=== PATIENT | male | born 1935 | race Caucasian/White ===

== ENCOUNTER 2019-01-12 09:53 | Inpatient (IN) | payer OTHER ==
[2019-01-12] MEDS ORDERED: INSULIN GLARGINE 100 UNITS/ML SQ ONE ×2 (11:00→21:43)
[2019-01-12 11:33] LABS: Protime INR 1.27
[2019-01-12 11:35] LABS: Absolute Lymphocytes (CBC) 0.7 K/uL (0.7-4.9); Basophils % 0.4 % (0-1.3); Hematocrit 41.9 % (39.6-49.0); Lymphocytes % 4.9 % (15.3-44.8); MPV 11.1 fL (7.6-11.3); RBC Red Blood Cell Count 4.66 M/uL (4.33-5.43)
[2019-01-12] MEDS ORDERED: NA CHLORIDE 0.9% 500 ML ONE (11:58)
[2019-01-12 12:04] LABS: Albumin 3.8 g/dL (3.4-5.0); Bilirubin Direct 0.8 mg/dL (0-0.2); Bilirubin Total 3.4 mg/dL (0.2-1.0); Magnesium 1.7 mg/dL (1.8-2.4)
[2019-01-12 12:14] LABS: Troponin (Emerg Dept Use Only) 6.52 ng/mL (0.0-0.045)
--- NOTE | 2019-01-12 12:21 | RAD REPORT ---
EXAM DESCRIPTION: RAD - Chest Single View - 01/12/2019 11:19 am CLINICAL HISTORY: SOB Chest pain. COMPARISON: Chest Single View dated 03/04/2017; Chest Pa And Lat (2 Views) dated 03/02/2017; CHEST PA AND LAT 2 VIEW dated 06/06/2012; CHEST PA AND LAT 2 VIEW dated 05/22/2012 FINDINGS: Portable technique limits examination quality. Emphysematous changes are present with ill-defined bibasilar lung opacities, greater on the right, li milagros representing pneumonia. The heart is mildly enlarged in size. Small bilateral pleural effusions.
[2019-01-12] MEDS ORDERED: HEPARIN 5000 UNIT/ML 1 ML VIAL ONE (12:37)
--- NOTE | 2019-01-12 12:48 | ER ---
Nurse's Notes [facility] Name: Jadon Zamora Age: 83 yrs Sex: Male : 1935 Arrival Date: 01/12/2019 Time: 09:54 Bed 14 Private MD: Humberto Voss V Diagnosis: Non-ST elevation (NSTEMI) myocardial infarction Presentation: 01/12 10:01 Presenting complaint: Patient states: "I have diabetes and its out of control and I've aj1 been fasting for 2 days to try to get it down but it has not come down and then last night I was having a hard time breathing, and now I'm still short winded" Reports that his blood sugar has been in the 420's at home. Denies fever, cough, congestion. Transition of care: patient was not received from another setting of care. Onset of symptoms was 2018. Risk Assessment: Do you want to hurt yourself or someone else? Patient reports no desire to harm self or others. Initial Sepsis Screen: Does the patient meet any 2 criteria? RR > 20 per min. HR > 90 bpm. Yes. Care prior to arrival: None. 10:01 Method Of Arrival: Ambulatory aj1 10:08 Acuity: RISHABH 3 aj1 10:38 Initial Sepsis Screen: Does the patient have a suspected source of infection? No. rb1 Patient's initial sepsis screen is negative. Triage Assessment: 10:05 General: Appears in no apparent distress. comfortable, Behavior is calm, cooperative, aj1 appropriate for age. Pain: Denies pain. Neuro: Level of Consciousness is awake, alert, obeys commands, Oriented to person, place, time, situation. Neuro: Reports generalized weakness. Cardiovascular: Patient's skin is warm and dry. Respiratory: Reports shortness of breath Airway is patent Respiratory effort is even, unlabored, Respiratory pattern is regular, symmetrical. 10:38 Respiratory: Onset: The symptoms/episode began/occurred x 3 days, the patient has rb1 moderate shortness of breath. Historical: - Allergies: 10:05 No Known Allergies; aj1 - Home Meds: 10:35 finasteride Oral [Active]; Glimepiride Oral [Active]; Janumet Oral [Active]; lisinopril rb1 Oral [Active]; - PMHx: 10:05 Arthritis; Diabetes - NIDDM; Hypertension; CAD; cardiac stent x2; aj1 - Immunization history:: Flu vaccine is up to date. - Social history:: Smoking status: Patient/guardian denies using tobacco. - Ebola Screening: : Patient denies travel to an Ebola-affected area in the 21 days before illness onset. Screenin:38 Abuse screen: Denies threats or abuse. Nutritional screening: pt. reports fasting the rb1 last two days. Tuberculosis screening: No symptoms or risk factors identified. 10:38 Fall Risk No fall in past 12 months (0 pts). No secondary diagnosis (0 pts). IV access rb1 (20 points). Ambulatory Aid- None/Bed Rest/Nurse Assist (0 pts). Gait- Normal/Bed Rest/Wheelchair (0 pts) Mental Status- Oriented to own ability (0 pts). Total Miller Fall Scale indicates No Risk (0-24 pts). Assessment: 10:38 General: Appears in no apparent distress. comfortable, Behavior is calm, cooperative, rb1 Denies fever. General: Pt. is concerned about high blood sugars.. Neuro: Level of Consciousness is awake, alert, obeys commands, Oriented to person, place, time, situation. Neuro: Reports weakness in generalized since x 1 week. Cardiovascular: Capillary refill < 3 seconds is brisk in bilateral fingers. Cardiovascular: Denies chest pain. Respiratory: Reports congestion, denies chest pain, but c/o feeling pressure in his chest from the congestion Airway is patent Respiratory effort is even, unlabored, Respiratory pattern is regular, symmetrical. Respiratory: Reports shortness of breath at rest on exertion since x 3 days. Derm: Skin is pink, warm \\T\\ dry. 10:38 Cardiovascular: Rhythm is irregular. rb1 10:52 Reassessment: Faxed Thiago to the pharmacy. rb1 11:38 Reassessment: Patient appears in no apparent distress at this time. No changes from rb1 previously documented assessment. Family at the bedside. 12:23 Reassessment: Patient appears in no apparent distress at this time. Patient and/or rb1 family updated on plan of care and expected duration. Pain level reassessed. Patient is alert, oriented x 3, equal unlabored respirations, skin warm/dry/pink. Patient denies pain at this time. 12:45 Reassessment: Patient appears in no apparent distress at this time. Pt. went to CT. rb1 13:36 Reassessment: Patient appears in no apparent distress at this time. Patient and/or rb1 family updated on plan of care and expected duration. Pain level reassessed. Patient is alert, oriented x 3, equal unlabored respirations, skin warm/dry/pink. Patient denies pain at this time. 13:56 Reassessment: Dr. Lynch is at the pt bedside. rb1 14:00 Reassessment: Called report to FRANK Estrada. Information from the [facility] was given. All rb1 questions asked and answered. 14:18 Reassessment: Patient appears in no apparent distress at this time. Patient and/or rb1 family updated on plan of care and expected duration. Pain level reassessed. Patient is alert, oriented x 3, equal unlabored respirations, skin warm/dry/pink. Patient denies pain at this time. Vital Signs: 10:05 BP 133 / 76; Pulse 97; Resp 22; Temp 97.4; Pulse Ox 100% on R/A; Weight 93.44 kg (R); aj1 Height 6 ft. 0 in. (182.88 cm) (R); Pain 0/10; 11:05 BP 107 / 72; Pulse 78; Resp 22; Pulse Ox 98% on R/A; Pain 0/10; rb1 12:05 BP 104 / 75; Pulse 102; Resp 23; Pulse Ox 99% on R/A; Pain 0/10; rb1 12:30 BP 111 / 74; Pulse 92; Resp 32; Pulse Ox 97% on R/A; Pain 0/10; rb1 13:30 BP 109 / 76; Pulse 98; Resp 39; Pulse Ox 96% on R/A; Pain 0/10; rb1 13:43 BP 111 / 71; Pulse 87; Resp 34; Pulse Ox 97% on R/A; Pain 0/10; rb1 14:00 BP 107 / 75; Pulse 89; Resp 29; Pulse Ox 95% on R/A; Pain 0/10; rb1 14:24 BP 98 / 68; Pulse 81; Resp 37; Pulse Ox 95% on R/A; Pain 0/10; rb1 10:05 Body Mass Index 27.94 (93.44 kg, 182.88 cm) aj1 ED Course: 09:54 Patient arrived in ED. as 09:55 Humberto Voss MD is Private Physician. as 10:05 Arm band placed on. aj1 10:08 Triage completed. aj1 10:32 [facility] pm1 10:32 Vlad Payne MD is Attending Physician. pm1 10:38 Patient has correct armband on for positive identification. Bed in low position. Call rb1 light in reach. Side rails up X 1. campus monitor on. Pulse ox on. NIBP on. Warm blanket given. 10:42 Sagrario Evans, RN is Primary Nurse. rb1 10:56 Missed attempt(s): 22 gauge in right antecubital area. Bleeding controlled, band aid rb1 applied, catheter tip intact. 11:07 Missed attempt(s): 22 gauge in right antecubital area. Bleeding controlled, band aid rb1 applied, catheter tip intact. 11:20 XRAY Chest (1 view) In Process Unspecified. EDMS 11:26 Initial lab(s) drawn, by me, sent to lab. EKG done, by ED staff, reviewed by Avelino em1 Tyesha SHELL. Inserted saline lock: 20 gauge in left wrist, using aseptic technique. Blood collected. 12:45 Humberto Voss MD is Hospitalizing Provider. pm1 12:[address] via stretcher. nj 12:53 CT Chest For PE Angio In Process Unspecified. EDMS 12:53 CT completed. Patient tolerated procedure well. Patient moved back from CT. nj 14:42 No provider procedures requiring assistance completed. Patient admitted, IV remains in rb1 place. Administered Medications: 11:18 Drug: LanTUS 10 units Route: Sub-Q; Site: right upper arm; rb1 11:33 Follow up: Response: No adverse reaction rb1 12:00 Drug: NS 0.9% 500 ml Route: IV; Rate: bolus; Site: left wrist; rb1 12:44 Not Given (Provider changed the order): Heparin (MN Drip) 12 units/kg/hr - (HEParin rb1 81158 units, D5W 500 ml) IV at calculated rate Per protocol; Max initial rate 1000 units/hr 12:45 Not Given (Provider changed the order): Heparin (MN-Bolus No thrombolytic) - HEParin 60 rb1 units/kg IVP once; Max 5000 units 13:24 Drug: Lovenox 1 mg/kg Route: Sub-Q; Site: right lower abdomen; rb1 13:40 Follow up: Response: No adverse reaction rb1 13:24 Drug: Aspirin 325 mg Route: PO; rb1 13:52 Follow up: Response: No adverse reaction rb1 13:30 Drug: Lopressor 5 mg Route: IVP; Site: left wrist; rb1 13:50 Drug: Lopressor 5 mg Route: IVP; Site: left wrist; rb1 14:05 Drug: Lasix 40 mg Route: IVP; Site: left wrist; rb1 14:20 Follow up: Response: No adverse reaction rb1 14:09 Drug: Lopressor 5 mg Route: IVP; Site: left wrist; rb1 14:40 Follow up: Response: No adverse reaction; See vital signs rb1 Point of Care Testing: Blood Glucose: 10:07 Blood Glucose: 346 mg/dL; aj1 12:22 Blood Glucose: 287 mg/dL; rb1 Ranges: Intake: Outcome: 12:47 Decision to Hospitalize by Provider. pm1 14:42 Patient left the ED. 14:42 Admitted to Tele accompanied by tech, family with patient, via stretcher, room 424, rb1 with chart, Report called to FRANK Estrada 14:42 Condition: stable 14:42 Instructed on the need for admit. Signatures: Dispatcher [employer] Kelly Alanis RN RN aj1 Brittany Sanchez Eric em1 Sagrario Evans, RN RN rb1 Avelino Arambula, FLIGHT LINE SERVICE ATTENDANT FLIGHT LINE SERVICE ATTENDANT pm1 Nolvia Mccray RN RN Moise Macdonald Corrections: (The following items were deleted from the chart) 11:09 11:07 Missed attempt(s): 22 gauge in right antecubital area. rb1 rb1
--- NOTE | 2019-01-12 12:49 | EDPHYS ---
Physician Documentation [facility] Name: Jadon Zamora Age: 83 yrs Sex: Male : 1935 Arrival Date: 01/12/2019 Time: 09:54 Bed 14 Private MD: Humberto Voss V ED Physician Vlad Payne HPI: 01/12 12:21 This 83 yrs old Male presents to ER via Ambulatory with complaints of High pm1 Blood Sugar, Shortness Of Breath. 12:21 The patient or guardian reports chest pain that is located primarily in the mid-sternal pm1 area. Onset: 3 day(s) ago. The pain does not radiate. Associated signs and symptoms: Pertinent positives: cough, shortness of breath, Pertinent negatives: abdominal pain, diaphoresis, dizziness, nausea, palpitations, vomiting. The chest pain is described as a pressure. Duration: The patient or guardian reports a single episode, that is now resolved, 15 minutes ago. Modifying factors: The symptoms are alleviated by rest, the symptoms are aggravated by walking, moving from room to room in his house. Severity of pain: in the emergency department the pain has resolved. PCP Dr. Voss. Fabric Worker Brooke. Historical: - Allergies: 10:05 No Known Allergies; aj1 - Home Meds: 10:35 finasteride Oral [Active]; Glimepiride Oral [Active]; Janumet Oral [Active]; lisinopril rb1 Oral [Active]; - PMHx: 10:05 Arthritis; Diabetes - NIDDM; Hypertension; CAD; cardiac stent x2; aj1 - Immunization history:: Flu vaccine is up to date. - Social history:: Smoking status: Patient/guardian denies using tobacco. - Ebola Screening: : Patient denies travel to an Ebola-affected area in the 21 days before illness onset. ROS: 12:21 Constitutional: Negative for fever, chills, and weight loss, Eyes: Negative for injury, pm1 pain, redness, and discharge, ENT: Negative for injury, pain, and discharge, Neck: Negative for injury, pain, and swelling. 12:21 Abdomen/GI: Negative for abdominal pain, nausea, vomiting, diarrhea, and constipation, Back: Negative for injury and pain, : Negative for injury, bleeding, discharge, and swelling, MS/Extremity: Negative for injury and deformity, Skin: Negative for injury, rash, and discoloration, Neuro: Negative for headache, weakness, numbness, tingling, and seizure. 12:21 Cardiovascular: Positive for chest pain, orthopnea, Negative for edema, palpitations. 12:21 Respiratory: Positive for cough, shortness of breath. Exam: 12:21 Constitutional: This is a well developed, well nourished patient who is awake, alert, pm1 and in no acute distress. Head/Face: Normocephalic, atraumatic. Eyes: Pupils equal round and reactive to light, extra-ocular motions intact. Lids and lashes normal. Conjunctiva and sclera are non-icteric and not injected. Cornea within normal limits. Periorbital areas with no swelling, redness, or edema. ENT: Nares patent. No nasal discharge, no septal abnormalities noted. Tympanic membranes are normal and external auditory canals are clear. Oropharynx with no redness, swelling, or masses, exudates, or evidence of obstruction, uvula midline. Mucous membranes moist. Neck: Trachea midline, no thyromegaly or masses palpated, and no cervical lymphadenopathy. Supple, full range of motion without nuchal rigidity, or vertebral point tenderness. No Meningismus. Chest/axilla: Normal chest wall appearance and motion. Nontender with no deformity. No lesions are appreciated. 12:21 Respiratory: Lungs have equal breath sounds bilaterally, clear to auscultation and percussion. No rales, rhonchi or wheezes noted. No increased work of breathing, no retractions or nasal flaring. Abdomen/GI: Soft, non-tender, with normal bowel sounds. No distension or tympany. No guarding or rebound. No evidence of tenderness throughout. Back: No spinal tenderness. No costovertebral tenderness. Full range of motion. Skin: Warm, dry with normal turgor. Normal color with no rashes, no lesions, and no evidence of cellulitis. MS/ Extremity: Pulses equal, no cyanosis. Neurovascular intact. Full, normal range of motion. 12:21 Cardiovascular: Rate: tachycardic, actual rate is 102 bpm, Rhythm: regular, Pulses: no pulse deficits are appreciated, Heart sounds: normal, Edema: is not appreciated. 12:21 Neuro: Orientation: is normal, Motor: is normal, moves all fours. Vital Signs: 10:05 BP 133 / 76; Pulse 97; Resp 22; Temp 97.4; Pulse Ox 100% on R/A; Weight 93.44 kg (R); aj1 Height 6 ft. 0 in. (182.88 cm) (R); Pain 0/10; 11:05 BP 107 / 72; Pulse 78; Resp 22; Pulse Ox 98% on R/A; Pain 0/10; rb1 12:05 BP 104 / 75; Pulse 102; Resp 23; Pulse Ox 99% on R/A; Pain 0/10; rb1 12:30 BP 111 / 74; Pulse 92; Resp 32; Pulse Ox 97% on R/A; Pain 0/10; rb1 13:30 BP 109 / 76; Pulse 98; Resp 39; Pulse Ox 96% on R/A; Pain 0/10; rb1 13:43 BP 111 / 71; Pulse 87; Resp 34; Pulse Ox 97% on R/A; Pain 0/10; rb1 14:00 BP 107 / 75; Pulse 89; Resp 29; Pulse Ox 95% on R/A; Pain 0/10; rb1 14:24 BP 98 / 68; Pulse 81; Resp 37; Pulse Ox 95% on R/A; Pain 0/10; rb1 10:05 Body Mass Index 27.94 (93.44 kg, 182.88 cm) aj1 MDM: 10:33 Patient medically screened. pm1 10:44 Physician consultation: Humberto Voss MD would like further tests performed, Cardiac pm1 work up and Lantus 10 Units, in the emergency department to see patient at 10:43. 12:20 Physician consultation: Vlad Payne MD Discussed elevated troponin and ECG with Dr. ari Payne. Recommended Heparin drip. 12:43 Physician consultation: Humberto Voss MD would like medications started, Lovenox, pm1 instead of Heparin. 12:44 Data reviewed: vital signs. pm1 12:45 Data interpreted: Pulse oximetry: on room air is 99 %. Interpretation: normal. pm1 Counseling: I had a detailed discussion with the patient and/or guardian regarding: the historical points, exam findings, and any diagnostic results supporting the discharge/admit diagnosis, lab results, the need for further work-up and treatment in the hospital. 12:45 Physician consultation: Mikhail Lynch MD was contacted at 12:44, regarding consult, pm1 patient's condition, and will see patient would like medications started, Medications: Give patient a beta-bryn: Metoprolol and Lovenox or Heparin would be appropriate for the patient. 13:32 Physician consultation: Humberto Voss MD Discussed with Dr. Voss if he would like the pm1 patient placed in ICU or telemetry. I wanted to ICU due to troponin value. Dr. Voss would like ICU also if a bed is available, but if no ICU bed is available, admit the patient to telemetry. 13:55 Physician consultation: Mikhail Lynch MD in the emergency department to see patient at pm1 13:56. 01/12 10:19 Order name: Glucose, Ancillary Testing; Complete Time: 10:32 EDMS 01/12 10:42 Order name: Basic Metabolic Panel; Complete Time: 12:15 pm1 01/12 10:42 Order name: CBC with Diff; Complete Time: 13:26 pm1 01/12 10:42 Order name: LFT's; Complete Time: 12:15 pm1 01/12 10:42 Order name: Magnesium; Complete Time: 12:15 pm1 01/12 10:42 Order name: NT PRO-BNP; Complete Time: 12:15 pm1 01/12 10:42 Order name: PT-INR; Complete Time: 11:57 pm1 01/12 10:42 Order name: Troponin (emerg Dept Use Only); Complete Time: 12:15 pm1 01/12 10:42 Order name: XRAY Chest (1 view); Complete Time: 12:29 pm1 01/12 12:24 Order name: Ptt, Activated; Complete Time: 12:35 pm1 01/12 12:33 Order name: Glucose, Ancillary Testing; Complete Time: 12:35 EDMS 01/12 13:15 Order name: Troponin I EDMS 01/12 13:15 Order name: Troponin I EDMS 01/12 13:25 Order name: Manual Differential; Complete Time: 13:26 EDMS 01/12 10:42 Order name: EKG; Complete Time: 10:43 pm1 01/12 12:15 Order name: CT Chest For PE Angio; Complete Time: 13:26 pm1 01/12 13:15 Order name: CONS Physician Consult EDMS 01/12 13:15 Order name: Heart Healthy EDMN 01/12 13:15 Order name: EKG Electrocardiogram EDMN 01/12 13:15 Order name: EKG Electrocardiogram EDMN 01/12 13:15 Order name: EKG Electrocardiogram EDMN 01/12 13:15 Order name: EKG Electrocardiogram [facility] 01/12 10:42 Order name: Cardiac monitoring; Complete Time: 12:04 pm1 01/12 10:42 Order name: EKG - Nurse/Tech; Complete Time: 11:26 pm1 01/12 10:42 Order name: IV Saline Lock; Complete Time: 11:26 pm1 01/12 10:42 Order name: Labs collected and sent; Complete Time: 11:26 pm1 01/12 10:42 Order name: O2 Per Protocol; Complete Time: 12:05 pm1 01/12 10:42 Order name: O2 Sat Monitoring; Complete Time: 12:05 pm1 01/12 13:16 Order name: CONS Pharmacy Consult EDMN Administered Medications: 11:18 Drug: LanTUS 10 units Route: Sub-Q; Site: right upper arm; rb1 11:33 Follow up: Response: No adverse reaction rb1 12:00 Drug: NS 0.9% 500 ml Route: IV; Rate: bolus; Site: left wrist; rb1 12:44 Not Given (Provider changed the order): Heparin (DC Drip) 12 units/kg/hr - (HEParin rb1 06573 units, D5W 500 ml) IV at calculated rate Per protocol; Max initial rate 1000 units/hr 12:45 Not Given (Provider changed the order): Heparin (DC-Bolus No thrombolytic) - HEParin 60 rb1 units/kg IVP once; Max 5000 units 13:24 Drug: Lovenox 1 mg/kg Route: Sub-Q; Site: right lower abdomen; rb1 13:40 Follow up: Response: No adverse reaction rb1 13:24 Drug: Aspirin 325 mg Route: PO; rb1 13:52 Follow up: Response: No adverse reaction rb1 13:30 Drug: Lopressor 5 mg Route: IVP; Site: left wrist; rb1 13:50 Drug: Lopressor 5 mg Route: IVP; Site: left wrist; rb1 14:05 Drug: Lasix 40 mg Route: IVP; Site: left wrist; rb1 14:20 Follow up: Response: No adverse reaction rb1 14:09 Drug: Lopressor 5 mg Route: IVP; Site: left wrist; rb1 14:40 Follow up: Response: No adverse reaction; See vital signs rb1 Point of Care Testing: Blood Glucose: 10:07 Blood Glucose: 346 mg/dL; aj1 12:22 Blood Glucose: 287 mg/dL; rb1 Ranges: Critical Glucose Levels:Adult <50 mg/dl or >400 mg/dl <40 mg/dl or >180 mg/dl Disposition: 17:48 Co-signature as Attending Physician, Vlad Payne MD Did not see or evaluate the ps1 patient. Signing the chart for administrative purposes. Not an endorsement of care provided. . Disposition: 01/12/19 12:47 Hospitalization ordered by Humberto Voss for Inpatient Admission. Preliminary diagnosis is Non-ST elevation (NSTEMI) myocardial infarction. - Bed requested for Telemetry/MedSurg (Inpatient). - Status is Inpatient Admission. hb - Condition is Stable. - Problem is new. - Symptoms have improved. UTI on Admission? No Signatures: Dispatcher [employer] EDMS Kelly Davis RN RN aj1 Sagrario Evans RN RN rb1 Avelino Arambula, SUMAYA STOCKROOM INVENTORY CLERK pm1 Nolvia Mccray RN RN hb Vlad Payne MD MD ps1 Betty Ledezma Corrections: (The following items were deleted from the chart) 12:56 12:47 Hospitalization Ordered by Humberto Voss MD for Inpatient Admission. Preliminary eb diagnosis is Non-ST elevation (NSTEMI) myocardial infarction. Bed requested for Telemetry/MedSurg (Inpatient). Status is Inpatient Admission. Condition is Stable. Problem is new. Symptoms have improved. UTI on Admission? No. pm1 13:04 12:56 01/12/2019 12:47 Hospitalization Ordered by Humberto Voss MD for Inpatient pm1 Admission. Preliminary diagnosis is Non-ST elevation (NSTEMI) myocardial infarction. Bed requested for Telemetry/MedSurg (Inpatient). Status is Inpatient Admission. Condition is Stable. Problem is new. Symptoms have improved. UTI on Admission? No. eb 13:21 13:04 01/12/2019 12:47 Hospitalization Ordered by Humberto Voss MD for Inpatient pm1 Admission. Preliminary diagnosis is Non-ST elevation (NSTEMI) myocardial infarction. Bed requested for Intensive Care Unit. Status is Inpatient Admission. Condition is Stable. Problem is new. Symptoms have improved. UTI on Admission? No. pm1 13:32 13:21 01/12/2019 12:47 Hospitalization Ordered by Humberto Voss MD for Inpatient eb Admission. Preliminary diagnosis is Non-ST elevation (NSTEMI) myocardial infarction. Bed requested for Telemetry/MedSurg (Inpatient). Status is Inpatient Admission. Condition is Stable. Problem is new. Symptoms have improved. UTI on Admission? No. pm1 14:42 13:32 01/12/2019 12:47 Hospitalization Ordered by Humberto Voss MD for Inpatient hb Admission. Preliminary diagnosis is Non-ST elevation (NSTEMI) myocardial infarction. Bed requested for Telemetry/MedSurg (Inpatient). Status is Inpatient Admission. Condition is Stable. Problem is new. Symptoms have improved. UTI on Admission? No. eb
--- NOTE | 2019-01-12 13:04 | RAD REPORT ---
EXAM DESCRIPTION: CT - Chest For Pe Angio - 01/12/2019 12:52 pm CLINICAL HISTORY: Chest pain. SOB COMPARISON: THORAX W CONTRAST dated 05/13/2013; Chest Single View dated 01/12/2019 TECHNIQUE: CT angiogram of the pulmonary arteries was performed with MIP. All CT scans are performed using dose optimization technique as appropriate and may include automated exposure control or mA/KV adjustment according to patient size. FINDINGS: No evidence of pulmonary thromboembolism. No acute aortic finding demonstrated. Moderate bilateral pulmonary opacities are present having the appearance mild pulmonary edema. Atelec tasis is present both lung bases. Respiratory artifact is present, limiting detail. Small to moderate bilateral pleural effusions. No concerning bony finding. IMPRESSION: No evidence of pulmonary thromboembolism. [id number] CHF versus volume overload pattern.
[2019-01-12] MEDS ORDERED: ONDANSETRON 4 MG/2 ML VIAL IV PRN (13:06)
[2019-01-12] MEDS ORDERED: D50W 25 GM/50 ML SYRINGE/VIAL IV PRN (13:06)
[2019-01-12] MEDS ORDERED: MORPHINE 4 MG/ML SYR IV PRN ×2 (13:06→16:55)
[2019-01-12] MEDS ORDERED: GLUCAGON 1 MG/VIAL IM PRN (13:06)
[2019-01-12] MEDS ORDERED: ASPIRIN 81 MG CHEWABLE TABLET ONE (13:22)
[2019-01-12] MEDS ORDERED: METOPROLOL TARTRATE 5 MG/5 ML INJ IV ONE ×3 (13:23→14:09)
[2019-01-12 13:24] LABS: Blood Morphology Comment NOT SEEN (NOT SEEN); Platelet Estimate DECR
[2019-01-12] MEDS ORDERED: FUROSEMIDE 40 MG/4 ML VIAL ONE (14:09)
[2019-01-12 15:19] VITALS: BMI 27.8
[2019-01-12 16:26] LABS: Urine Appearance CLEAR; Urine Bilirubin NEGATIVE (NEG); Urine Blood TRACE (NEG); Urine Color YELLOW; Urine Glucose 2+ (NEG); Urine Protein NEGATIVE (NEG); Urine Urobilinogen 0.2 mg/dL (0.2-1.0); Urine pH 5.5 (5.0-7.0)
[2019-01-12 16:27] LABS: Urine Microscopic Reflex ORDER UMIC
[2019-01-12 16:36] LABS: Urine Bacteria 20-50 /HPF (NONE SEEN); Urine Culture Reflex Order REFLEXED; Urine Mucus 2+ /HPF (NONE SEEN); Urine Yeast FEW (NONE SEEN)
[2019-01-12 16:37] LABS: Urine Coarse Granular Casts FEW /LPF (NONE SEEN)
--- NOTE | 2019-01-12 17:06 | P.HP ---
Certification for Inpatient Patient admitted to: Inpatient With expected LOS: >2 Midnights Practitioner: I am a practitioner with admitting privileges, knowledge of patient current condition, hospital course, and medical plan of care. Services: Services provided to patient in accordance with Admission requirements found in Title 42 Section 412.3 of the Code of Federal Regulations Patient History Date of Service: 01/12/19 Reason for admission: DYSPNEA History of Present Illness: MR. WILD IS A DIABETIC WITH LAST A1C 7.5, HISTORY OF CAD WITH TWO STENTS BY DR. WINN IN 2017, COMES WITH WORSENING DYSPNEA AND PND FOR LAST 4 DAYS. HE IS TRYING TO BRING DOWN HIS GLUCOSE BY EATING LESS AND EATING PROTEIN ONLY. HE SAYS HE IS NOT EATING EXCESS SALT. I SAW HIM IN THE ER BEFORE ANY INVESTIGATIONS. I SUSPECT CHF WITH UNDERLYING CAD FROM HISTORY. Allergies No Known Allergies Allergy (Verified 03/05/17 07:57) Home medications list reviewed: Yes Home Medications: Glimepiride [Amaryl] 4 mg PO DAILY 03/04/17 Sitagliptin Phos/Metformin HCl [Janumet 50-1,000 mg Tablet] 1 each PO BID Ardes Eye Tabls 2 pill PO BID 01/12/19 Aspirin [Adult Aspirin Regimen] 81 mg PO DAILY 01/12/19 Glucosamine/D3/Boswellia Winter [Osteo Bi-Flex Tablet] 1 each PO DAILY 01/12/19 Metoprolol Succinate [Toprol Xl] 25 mg PO DAILY 01/12/19 Multivitamin/Iron/Folic Acid [Centrum Adults Tablet] 1 pill PO DAILY 01/12/19 - Past Medical/Surgical History Has patient received pneumonia vaccine in the past: Yes Diabetic: Yes -: HTN -: Arthritis -: 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 also problem with rt -: Bilateral Knees -: Bilateral Cataracts -: Carpal Tunnel -: cardiac stent x2 2 02/2017 - Family History Mother -: Heart disease, Other (see notes) Notes: CHF - Social History Smoking Status: Former smoker Alcohol use: No CD- Drugs: No Caffeine use: Yes Place of Residence: Home Review of Systems 10-point ROS is otherwise unremarkable General: Weakness, Malaise Respiratory: Shortness of Breath Physical Examination - Vital Signs Temperature: 97.7 F Blood Pressure: 104/68 Pulse: 85 Respirations: 30 Pulse Ox (%): 96 - Physical Exam General: Alert, Mild distress, Obese HEENT: Atraumatic, PERRLA, Mucous membr. moist/pink, EOMI, Sclerae nonicteric Neck: Supple, 2+ carotid pulse no bruit, No LAD, Without JVD or thyroid abnormality Respiratory: Diminished Cardiovascular: Regular rate/rhythm, Normal S1 S2 Gastrointestinal: Normal bowel sounds, No tenderness Musculoskeletal: No tenderness Integumentary: No rashes Neurological: Normal gait, Normal speech, Normal strength at 5/5 x4 extr, Normal tone, Normal affect Lymphatics: No axilla or inguinal lymphadenopathy - Studies Laboratory Data (last 24 hrs) 01/12/19 12:24: APTT 35.8 01/12/19 11:20: PT 14.8 H, INR 1.27 01/12/19 11:20: WBC 14.3 H, Hgb 14.8, Hct 41.9, Plt Count 102 L 01/12/19 11:20: Sodium 133 L, Potassium 4.0, BUN 14, Creatinine 0.90, Glucose 330 H, Magnesium 1.7 L, Total Bilirubin 3.4 H, AST 55 H, ALT 17, Alkaline Phosphatase 71 Assessment and Plan - Problems (Diagnosis) (1) CHF (congestive heart failure) Current Visit: Yes Status: Acute Plan: LASIX 40 MG GIVEN IN ER. I WILL CONINUE 20 MG BID AND KCL . HIS BP IS TOO LOW TO START WITH ACI OR ARB. HE HAS TRIED BEFORE WITH INTOELRANCE. I WILL REDUCE B JIM BP IS DOWN TO 100 SYSTOLIC. Qualifiers: Heart failure type: unspecified Heart failure chronicity: acute Qualified Code(s): I50.9 - Heart failure, unspecified (2) Coronary angioplasty status Onset Date: 03/05/17 Current Visit: No Status: Chronic Plan: ELEVATED TROPONIN CAN BE FROM CHF OR ACUTE NV. HIS PAIN IS MILD AND MORE LIKE PRESSURE. CARDIOLOGY CONSULTED. LOVENOX SC BID. DC HEPARIN. ASPIRIN DAILY 81 MG OXYGEN. (3) Uncontrolled diabetes mellitus Current Visit: Yes Status: Acute Plan: LANTUS STARTED HE KNOWS HOW TO INJECT. TRAIN AGAIN . SLIDING SCALE CHECK A1C LDL. Qualifiers: Diabetes mellitus type: type 2 Glycemic state: with hyperglycemia Qualified Code(s): E11.65 - Type 2 diabetes mellitus with hyperglycemia - Advance Directives Does patient have a Living Will: No Does patient have a Durable POA for Healthcare: No
[2019-01-12] MEDS: FUROSEMIDE 20 MG/ 2ML VIAL IV SCH (17:24)
[2019-01-12] MEDS: METOPROLOL TAR 50 MG TAB PO SCH (17:25)
[2019-01-12] MEDS: INSULIN -REGULAR HUMAN 50 UNIT/0.5 ML ML SQ SCH ×2 (18:11→21:34)
--- NOTE | 2019-01-12 18:21 | CON ---
History Of Present Illness: Mr. Zamora is 83 and for 3 days he has been having chest tightness, heaviness, cough. He has noted his blood sugars have gone up. He is a long-term diabetic. He yara es having chest pain, but he admits having pressure and tightness in his chest. Every time he exerts himself, it would get bad. When he lies flat, he is more short of breath. When he sits up, he is b rip. He has had a CT angio of his chest that is negative for pulmonary embolus. The CAT scan and the chest x-ray both suggest pulmonary edema, although mild, as well as emphysematous changes. He lopez s an EKG that shows nonspecific abnormalities. No infarction injury or ischemia and his troponins ar e very elevated. The first troponin measured since he has been here was 6.52. Mr. Zamora has a history of coronary heart disease with a stent placed in February 2017 in 2 arteries. There were juan diego e other arteries also considered, but not done. The stents were in the circumflex and proximal RCA. Apparently, the RCA was not dilated or stented at that time. The patient is known to have some valv ular heart disease as well. Echocardiogram indicated aortic stenosis. It was moderate with a valve area of 1 sq cm and a mean gradient 26 mm. The patient's outpatient medications, we actually do not have a list of his medications, that is still pending. I know he has been on aspirin, Plavix, and a statin since his stent about 11 months ago. He denies any allergies. He is not allergic to x-ray co ntrast material. Physical Examination: General: Mr. Zamora appears to be mildly dyspneic. Alert, oriented. Vital Signs: His blood pressure is 133/76, pulse 97, temperature 97.4. He is 93 kg, height 6 feet t all. Lungs: Clear. Heart: Reveals a high-grade, high-pitched musical systolic ejection type murmur consistent with aort ic stenosis. It is most easily audible at the cardiac apex. Abdomen: Soft. Extremities: Reveal mild edema. Distal pulses are normal. Impression: The patient has had pulmonary edema associated with myocardial necrosis. No doubt coron narcisa heart disease is the main culprit. I am very concerned that his aortic valve may be a significan t part of the equation. I think he should do a cardiac cath and if the valve is anywhere close to as bad as what the echo said 11 months ago or worse, he should probably just go through a bypass surger y rather than stent, although a stent and a TAVR are possibilities. THOMPSON Voice ID: [id number] Report ID: [id number]
[2019-01-12] MEDS ORDERED: METOPROLOL TAR 50 MG TAB PO SCH (21:00)
[2019-01-12] MEDS: ENOXAPARIN 100 MG/ML SYR SQ SCH (21:00)
[2019-01-12] MEDS: POTASSIUM CL SA 10 MEQ TAB PO SCH (21:34)
--- NOTE | 2019-01-12 23:04 | EKG ---
Test Date: 2019-01-12 Test Time: 11:13:25 Production Lead: DEEPALI MEASUREMENT RESULTS: Intervals: Rate: 100 MA: 184 QRSD: 98 QT: 384 QTc: 495 [place]: P: MA: 184 QRS: 4 T: 76 INTERPRETIVE STATEMENTS: Sinus rhythm with premature supraventricular complexes Anteroseptal infarct, age undetermined Abnormal ECG Compared to ECG 03/06/2017 09:55:16 Atrial premature complex(es) now present Myocardial infarct finding now present Sinus arrhythmia no longer present First degree AV block no longer present T-wave abnormality no longer present Electronically Signed On 01-12-19 23:04:07 FACIAL OPERATOR by Mikhail Lynch
[2019-01-13] MEDS ORDERED: FUROSEMIDE 40 MG/4 ML VIAL IV ONE (02:16)
[2019-01-13] MEDS: ALBUTEROL 2.5 MG/3 ML NEB SOL NEB SCH ×3 (02:18→14:10)
[2019-01-13 04:07] LABS: Absolute Lymphocytes (CBC) 1.1 K/uL (0.7-4.9); Basophils % 0.3 % (0-1.3); Hematocrit 41.3 % (39.6-49.0); Lymphocytes % 9.4 % (15.3-44.8); MPV 10.7 fL (7.6-11.3); RBC Red Blood Cell Count 4.58 M/uL (4.33-5.43)
[2019-01-13 04:25] LABS: BUN Blood Urea Nitrogen 18 mg/dL (7-18); Bicarbonate 26 mmol/L (21-32); Glucose Level 231 mg/dL (74-106); HDL Cholesterol 39 mg/dL (40-60); LDL, Direct 85 mg/dL (100-129); Magnesium 1.7 mg/dL (1.8-2.4); Potassium 3.5 mmol/L (3.5-5.1); Sodium Level 136 mmol/L (136-145)
[2019-01-13] MEDS: METOPROLOL TAR 50 MG TAB PO SCH (06:13)
[2019-01-13] MEDS ORDERED: HEPA 1000U/500MLS 0 UNIT/0 ML BAG IV ONE (07:12)
[2019-01-13] MEDS: ENOXAPARIN 100 MG/ML SYR SQ SCH (07:58)
[2019-01-13] MEDS: FUROSEMIDE 20 MG/ 2ML VIAL IV SCH (07:59)
[2019-01-13] MEDS: INSULIN -REGULAR HUMAN 50 UNIT/0.5 ML ML SQ SCH ×2 (08:30→12:56)
[2019-01-13] MEDS ORDERED: NA CHLORIDE 0.9% 50 ML ONE (08:51)
[2019-01-13] MEDS ORDERED: MIDAZOLAM HCL 2 MG/2 ML INJ ONE (08:51)
[2019-01-13] MEDS ORDERED: FENTANYL CITR 100 MCG/2 ML ONE (08:51)
[2019-01-13] MEDS ORDERED: ATROPINE SULF 1 MG/10 ML SYR IV ONE (08:51)
[2019-01-13] MEDS ORDERED: HEPA 1000U/500MLS 1,000 UNIT/500 ML BAG IV ONE ×2 (08:53)
[2019-01-13] MEDS ORDERED: NA CHLORIDE 0.9% 500 ML ONE (08:53)
[2019-01-13] MEDS: POTASSIUM CL SA 10 MEQ TAB PO SCH (09:00)
[2019-01-13] MEDS ORDERED: ASPIRIN EC 81 MG TAB PO SCH ×2 (09:00)
[2019-01-13] MEDS ORDERED: OCUVITE (VIT A,C & E/LUTEIN/MINERAL) TABLET PO SCH (09:00)
[2019-01-13] MEDS ORDERED: NA CHLORIDE 0.9% 100 ML IV ONE (09:38)
--- NOTE | 2019-01-13 10:03 | EKG ---
Test Date: 2019-01-13 Test Time: 07:15:17 Drug Abuse Technician: JUAN JOSE MEASUREMENT RESULTS: Intervals: Rate: 85 NC: 202 QRSD: 104 QT: 422 QTc: 502 [place]: P: 51 NC: 202 QRS: 22 T: 67 INTERPRETIVE STATEMENTS: Sinus rhythm with premature atrial complexes Cannot rule out Anteroseptal infarct, age undetermined Prolonged QT Abnormal ECG Compared to ECG 01/12/2019 11:13:25 Prolonged QT interval now present Myocardial infarct finding still present Electronically Signed On 01-13-19 10:03:03 JEWELER APPRENTICE by Mikhail Lynch
--- NOTE | 2019-01-13 10:20 | ECHO ---
HEIGHT: 6 ft 0 in WEIGHT: 205 lb 0 oz DATE OF STUDY: 01/13/[address]: Avelino Arambula NP 2-DIMENSIONAL: YES M.MODE: YES DOPPLER: YES COLOR FLOW: YES TDS: NO PORTABLE: NO DEFINITY: NO BUBBLE STUDY: NO DIAGNOSIS: NSTEMI, CONGESTIVE HEART FAILURE CARDIAC HISTORY: CATHERIZATION: YES SURGERY: NO PROSTHETIC VALVE: NO PACEMAKER: NO MEASUREMENTS (cm) DIASTOLIC (NORMALS) SYSTOLIC (NORMALS) IVSd 1.2 (0.6-1.2) LA Diam 3.5 (1.9-4.0) LVEF 51% LVIDd 5.0 (3.5-5.7) LVIDs 3.7 (2.0-3.5) %FS 26% LVPWd 1.3 (0.6-1.2) Ao Diam 2.9 (2.0-3.7) 2 DIMENSIONAL ASSESSMENT: RIGHT ATRIUM: NORMAL LEFT ATRIUM: NORMAL RIGHT VENTRICLE: NORMAL LEFT VENTRICLE: LEFT VENTRICULAR HYPERTORPHY TRICUSPID VALVE: NORMAL MITRAL VALVE: NORMAL PULMONIC VALVE: NORMAL AORTIC VALVE: STENOSIS PERICARDIAL EFFUSION: NONE AORTIC ROOT: NORMAL LEFT VENTRICULAR WALL MOTION: MILD SPETAL HYPOKINESIS. DOPPLER/COLOR FLOW: SEVERE AORTIC STENOSIS, PEAK/MEAN 107/78mmHg, ESTIMATED AORTIC VALVE AREA 0.6 CENTIMETERS SQUARED. MILD AORTIC REGURGITATION. MILD TRICUSPID REGURGITATION, ESTIMATED RIGHT VENTRICULAR SYSTOLIC PRESSURE 50mmHg (MODERATE PULMONARY HYPERTENSION). COMMENTS: NORMAL LEFT VENTRICULAR EJECTION FRACTION WITH WALL MOTION ABNORMALITY. LEFT VENTRICULAR HYPERTROPHY. SEVERE AORTIC STENOSIS. MILD AORTIC AND TRICUSPID REGURGITATION. MODERATE PULMONARY HYPERTENSION. TECHNOLOGIST: SHIRA PEARL
[2019-01-13 12:50] VITALS: TEMP 97.1
[2019-01-13 12:58] VITALS: BP 100/59; O2SAT 99
--- NOTE | 2019-01-13 23:03 | OP ---
Surgeon: Mikhail Lynch MD Identification: Mr. Zamora was 83. Procedure: Right and left heart catheterization. Diagnoses: Coronary artery disease and critical aortic stenosis. Procedure In Detail: The patient was brought to the [facility] in a fasting state sedated with Versed and fentanyl, prepared and draped in usual sterile fashion. Right femoral vein was used and a 7-[place]at[place] sheath and a right heart cath with a [place] catheter. The left femoral artery was ente red with an 18-gauge needle. A 4-Croatian sheath was placed. We used a JL5 and a 3DRC to angiogram th e coronary arteries. We attempted to cross the aortic valve and measure pressures in the left ventri skye. It proved impossible. We used a 3DRC and angled pigtail as a guide placed for the straight wir e and it was impossible to cross. Echocardiogram indicates aortic valve area of 0.6 sq cm and he als o has mild aortic regurgitation on echo. At the end of the procedure, the 4-Croatian sheath was change d for a 6-Croatian. We took an angiogram and then Angio-Seal was used to close the arteriotomy. Manua l pressure was used to close the venotomy after the vein sheath was removed. Complications From The Procedure: None. Our plan is to transfer him to [facility] for AVR and double-vessel bypass. ALYSIA/CARINA Voice ID: [id number] Report ID: [id number]
--- NOTE | 2019-01-14 09:13 | DS ---
Date of Discharge: 01/13/2019 Final Diagnosis: Severe aortic stenosis. Secondary Diagnoses: Strain on the heart, giving rise to elevated troponin; congestive heart failure ; diabetes mellitus. Hospital Course: Patient who is an 83-year-old gentleman, who has severe aortic stenosis per echocar diogram on this admission. He comes in mainly for CHF symptoms and troponin was high. BNP was 17,00 0. His glucose has been high at 346 also. He is now transferred to [facility] for TAVR proc edure for aortic stenosis. He will be discharged after that going home and follow up in my office. He is supposed to take insulin at home now instead of tablets, which have not worked any longer. He has been Lantus. Unfortunately, he will be going from here to [place], so hopefully we wi ll give him insulin prescription or when he comes to office, we will take care of it at that time. We will discuss with the patient's family this morning. TINA/CARINA Voice ID: [id number] Report ID: [id number]
== END 2019-01-13 14:50 | disposition short-term general hospital (02) | DRG 286 ==
LOC: ER 09:53 → ERHOLD 13:23 → 4TH 14:25
PROVIDERS: ADMIT Internal Medicine; ATTEND Internal Medicine
PROC: 4A023N8 Measurement of Cardiac Sampling and Pressure, Bilateral, Percutaneous Approach (ICD-10-PCS; principal; 2019-01-13)
DX: I35.0 Nonrheumatic aortic (valve) stenosis (principal); I50.31 Acute diastolic (congestive) heart failure; E11.65 Type 2 diabetes mellitus with hyperglycemia; I11.0 Hypertensive heart disease with heart failure; I25.10 Atherosclerotic heart disease of native coronary artery without angina pectoris; H40.9 Unspecified glaucoma
CPT/HCPCS: 36415; 71045; 71275; 80048; 80061; 80076; 81003; 81015; 82947; 83036; 83735; 83880; 84484; 85025; 85610; 85730; 87077; 87086; 87088; 87186; 93005; 93306; 93456; 96372; 96374; 96375; 99285; C1760; C1893; J0583; J1644; J1650; J1815; J1940; J2250; J3010; J7040; Q9967

== ENCOUNTER 2019-12-11 18:32 | Inpatient (IN) | payer OTHER ==
[2019-12-11] MEDS ORDERED: NA CHLORIDE 0.9% 500 ML ONE (18:59)
[2019-12-11] MEDS ORDERED: MORPHINE 4 MG/ML SYR ONE ×2 (18:59→20:15)
--- OUTSIDE RECORDS SUMMARY | 2019-12-11 19:03 | XMS REPORT | Clinical Summary ---
:1935 Author Organization [facility] Address [address] [place] [address] Care Team Providers Name Role Phone Gage Voss Primary Care Provider Angel Guthrie Unavailable Allergies No Known Allergies Medications Medication Sig Dispensed Refills Start End Date Status Date aspirin 81 MG EC Take 81 mg by 0 Active tablet mouth daily. multivit-mins/iro Take by mouth. 0 Active n/folic/lycop (CENTRUM MEN ORAL) insulin glargine To use 24 units 45 mL 3 Active (LANTUS SOLOSTAR twice a day. 9 U-100 INSULIN) 100 unit/mL (3 mL) InPn insulin aspart To use 6 to 20 45 mL 3 Active U-100 (NOVOLOG units three 9 FLEXPEN U-100 times a day per INSULIN) 100 sliding scale. unit/mL (3 mL) InPn insulin pen Use as directed. 600 each 0 A ctive needles (BD Dispense as 9 ULTRA-FINE SREEKANTH) written, do not 4 mm x 32 G substitute. Brand medically necessary.To use 6 a day. blood sugar Glucometer;Test 400 strip 3 Ac tive diagnostic strips to use 4 9 (GLUCOSE BLOOD) a day# 400 Strp Refills x3;Lancets to use 4 a day #400 Refills x3; DX E11.65. atorvastatin Take 1 tablet 30 tablet 2 01/22/20 Act adrian (LIPITOR) 80 MG (80 mg total) by 9 20 tablet mouth nightly No more refills through my office. clopidogrel Take 1 tablet 30 tablet 2 12/12/201 12/11/20 Acti ve (PLAVIX) 75 mg (75 mg total) by 9 20 tablet mouth daily No more refills through my office. digoxin (LANOXIN) Take 1 tablet 30 tablet 2 01/22/20 Active 0.25 MG tablet (250 mcg total) 9 20 by mouth daily No more refills through my office. metoprolol Take 1 tablet 60 tablet 2 01/22/20 Activ e (LOPRESSOR) 50 MG (50 mg total) by 9 20 tablet mouth 2 (two) times daily No more refills through my office. furosemide Take 1 tablet 30 tablet 2 01/23/20 Activ e (LASIX) 40 MG (40 mg total) by 9 20 tablet mouth daily No more refills through my office. potassium Take 1 tablet 30 tablet 0 01/23/20 Active chloride SA (10 mEq total) 9 20 (K-DUR,KLOR-CON) by mouth daily 10 MEQ tablet No more refills through my office.. dextromethorphan- Use as needed 0 Active guaifenesin per package 9 (ROBITUSSIN instructions for COUGH-CHEST ZACHERY cough. It is DM) 5-100 mg/5 mL over the Liqd counter. glimepiride Take 4 mg by 0 01/17/20 Disco ntinued (AMARYL) 4 MG mouth 2 (two) 19 (S top Taking at tablet times daily. Dischar ge) metoprolol Take 25 mg by 0 01/23/20 Disco ntinued (TOPROL-XL) 50 MG mouth daily. 19 (Stop Taking at 24 hr tablet Dischar ge) cefdinir Take 1 capsule 10 capsule 0 01/28/20 Expi red (OMNICEF) 300 MG (300 mg total) 9 19 capsule by mouth every 12 (twelve) hours for 5 days. Active Problems Problem Noted Date LBBB post TAVR 01/23/2019 Paroxysmal atrial fibrillation 01/23/2019 S/p TAVR implant of Noe S3#29 on 01/20/19 01/21/2019 SEVERIANO to LAD and RCA on 01/17/19 01/21/2019 Acute on chronic combined systolic and diastolic CHF, NYHA class 4 01/16/2019 Aortic stenosis, severe 01/14/2019 Frailty syndrome in geriatric patient 01/14/2019 Acute non-ST elevation myocardial infarction (NSTEMI) 03/05/2017 Type 2 diabetes mellitus with diabetic nephropathy Encounters Date Type Specialty Care Team Description 01/23/2019 Telephone Diabetes Services Ale, Diabetes Monica Oliveros RN 01/20/2019 Surgery Lobo Perry TAVR / STEPHEN ANTONY Mills MD IP PROC ONLY 01/20/2019 Anesthesia Event Jaimee Contreras MD Chung, Jaeycorina 01/17/2019 Surgery Jasmina Cummings, CORONARY JIE OS & MD STENT 01/15/2019 Travel 01/13/2019 - Hospital Encounter Cardiology Houston Miranda MD Aortic stenosis, severe (Primary Dx); 01/22/2019 Acute non-ST el evation myocardial infarction (NSTEMI) (HCC); Acute on chroni c combined systolic and diastolic CHF, NYHA class 4 ([facility]); Frailty syndrom e in geriatric patient; LBBB (left bund le branch block); Paroxysmal atri al fibrillation ([facility]); 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 Never 01/13/2019 How many drinks containing alcohol do you have on a typical Not asked day when you are drinking? How often do you have six or more drinks on one occasion? No t asked Sex Assigned at Date Recorded Not on file Last Filed Vital Signs Vital Sign Reading Time Taken Comments Blood Pressure 122/65 01/22/2019 12:02 PM [employer]EL [employer] Pulse 78 01/22/2019 12:02 PM [employer]EL [employer] Temperature 36.9 C (98.5 F) 01/22/2019 12:02 PM [employer]EL [employer]ER Respiratory Rate 16 01/22/2019 12:02 PM [employer]EL [employer]ER Oxygen Saturation 97% 01/22/2019 12:02 PM [employer]EL [employer]ER Inhaled Oxygen Concentration 28% 01/15/2019 11:36 AM [employer]EL [employer]ER Weight 88.8 kg (195 lb 12.3 oz) 01/21/2019 8:00 AM [employer]EL [employer] Height 182.9 cm (6') 01/13/2019 4:00 PM [employer]EL [employer] Body Mass Index 26.55 01/13/2019 4:00 PM [employer]EL [employer] Plan of Treatment Health Maintenance Due Date Last Done Comments DIABETIC EYE EXAM 1945 DIABETIC FOOT EXAM 1945 URINE MICROALBUMIN 1946 PNEUMOCOCCAL 65+ YRS (1 of 1 - 2001 [id number]) MEDICARE ANNUAL WELLNESS (YEAR 2 or FIRST 05/14/2002 YEAR if no IPPE) HEMOGLOBIN A1C 07/17/2019 01/15/2019, 01/13/2019 INFLUENZA VACCINE (#1) 2019 Implants Implanted Type Area Rug Dry Room Attendant Device Shelf Model / Identifier Expiration Serial / Date Lot Stent Synergy Otw [id number] - [id number] IMPLAN TS Heart [employer]:INTER[employer] 10/21/2020 [id number] / Implanted: Qty: 1 on 01/17/2019 by Jasmina Cummings MD at [facility] / Description:LDA Stent Synergy Otw 3.32c80ar [id number] - [id number] IMPLAN TS Heart [employer] 08/05/2020 [id number] / Implanted: Qty: 1 on 01/17/2019 by Jasmina Cummings MD at [facility] / [id number] Description:RCA Valve Heart Noe 3 29mm [id number] - [id number] Valves N /A: Aorta [employer] 08/05/2020 [id number] / Implanted: Qty: 1 on 01/20/2019 by Lobo Mullen MD at [facility] [id number] / Description:Aortic Valve Stent Procedures Procedure Name Priority Date/Time Associated Comments Diagnosis VASCULAR DIAGRAM -SCAN 01/29/2019 12:40 PM [employer]EL [employer]ER RHYTHM STRIP - SCAN 01/24/2019 8:31 AM [employer]ER REPORT OF PROCEDURE - 01/24/2019 8:31 ENDOSCOPY SCAN AM [employer]ER VASCULAR DIAGRAM -SCAN 01/24/2019 8:31 AM [employer]EL [employer]ER CARDIAC CATH REPORT - 01/24/2019 8:31 SCAN AM [employer]ER CARDIAC CATH REPORT - 01/24/2019 8:31 SCAN AM [employer]EL [employer]ER ECHOCARDIOGRAM REPORT - 01/22/2019 9:20 SCAN PM [employer]ER POCT-GLUCOSE METER Routine 01/22/2019 12:08 Resul ts for this PM [employer] procedure are i n the results section. XR CHEST 1 VIEW STAT 01/22/2019 11:41 Results for this PORTABLE/BEDSIDE AM [employer] procedure a re in the results section. DIGOXIN LEVEL Routine 01/22/2019 8:42 Results fo r this AM [employer] procedure are i n the results section. POCT-GLUCOSE METER Routine 01/22/2019 7:39 Resul ts for this AM [employer] procedure are i n the results section. (CELLAVISION MANUAL Routine 01/22/2019 3:33 Resu lts for this DIFF) AM [employer] procedure are i n the results section. CBC W/PLT COUNT & AUTO Routine 01/22/2019 3:33 R esults for this DIFFERENTIAL AM [employer] procedure are i n the results section. MAGNESIUM Routine 01/22/2019 3:33 Results for this AM [employer] procedure are i n the results section. CBC W/PLT COUNT & AUTO Routine 01/22/2019 3:33 R esults for this DIFFERENTIAL AM [employer] procedure are i n the results section. BASIC METABOLIC PANEL Routine 01/22/2019 3:33 Re sults for this (7) AM [employer] procedure are i n the results section. POCT-GLUCOSE METER Routine 01/21/2019 9:54 Resul ts for this PM [employer] procedure are i n the results section. ECHOCARDIOGRAM REPORT - 01/21/2019 9:23 SCAN PM [employer]ER TRANSFUSION SERVICE 01/21/2019 6:51 REPORT - SCAN PM [employer] POCT-GLUCOSE METER Routine 01/21/2019 5:46 Resul ts for this PM [employer] procedure are i n the results section. POCT-GLUCOSE METER Routine 01/21/2019 3:49 Resul ts for this PM [employer] procedure are i n the results section. 2D ECHO W/ DOPPLER GAIL 01/21/2019 1:47 Resul ts for this (CW/PW/COLOR) PM [employer] procedure are in the results section. POCT-GLUCOSE METER Routine 01/21/2019 11:33 Resul ts for this AM [employer] procedure are i n the results section. RHYTHM STRIP - SCAN 01/21/2019 11:00 AM [employer]ER POCT-GLUCOSE METER Routine 01/21/2019 7:43 Resul ts for this AM [employer] procedure are i n the results section. ECG 12-LEAD Routine 01/21/2019 6:08 Results for this AM [employer] procedure are i n the results section. CBC W/PLT COUNT & AUTO Routine 01/21/2019 4:12 R esults for this DIFFERENTIAL AM [employer] procedure are i n the results section. MAGNESIUM Routine 01/21/2019 4:12 Results for this AM [employer] procedure are i n the results section. CBC W/PLT COUNT & AUTO Routine 01/21/2019 4:12 R esults for this DIFFERENTIAL AM [employer] procedure are i n the results section. BASIC METABOLIC PANEL Routine 01/21/2019 4:12 Re sults for this (7) AM [employer] procedure are i n the results section. POCT-GLUCOSE METER Routine 01/20/2019 9:07 Resul ts for this PM [employer] procedure are i n the results section. POCT-GLUCOSE METER Routine 01/20/2019 4:42 Resul ts for this PM [employer] procedure are i n the results section. ECG 12-LEAD Routine 01/20/2019 2:09 PM [employer] Procedure Note - Interface, External Ris In - 01/20/2019 2:11 PM [employer]ER Ventricular Rate 76 BPM Atrial Rate 76 BPM P-R Interval 238 ms QRS Duration 168 ms Q-T Interval 524 ms QTC Calculation(Bazett) 589 ms P [place] 37 degrees R [place] -16 degrees T [place] 135 degrees Sinus rhythm with 1st degree A-V block with Premature atrial complexes Left bundle branch block Abnormal ECG ECG 12-LEAD Routine 01/20/2019 2:09 PM [employer]ER Resu lts for this procedure are in the results section . ECG 12-LEAD Routine 01/20/2019 1:20 PM [employer]ER Procedure Note - Interface, External Ris In - 01/20/2019 12:24 PM [employer]ER Ventricular Rate 72 BPM Atrial Rate 72 BPM QRS Duration 170 ms Q-T Interval 528 ms QTC Calculation(Bazett) 578 ms P [place] 66 degrees R [place] 49 degrees T [place] 114 degrees Sinus rhythm with sinus arrh ythmia with 1st degree A-V block Left bundle branch block Abnormal ECG When compared with ECG of 20:18, Sinus rhythm has replaced At rial fibrillation Vent. rate has decreased BY 82 BPM Left bundle branch block is now Present Criteria for Septal infarct are no longer Present ECG 12-LEAD Routine 01/20/2019 1:20 PM [employer]ER Resu lts for this procedure are in the results section . ECG 12-LEAD Routine 01/20/2019 1:06 PM [employer]ER Procedure Note - Interface, External Ris In - 01/20/2019 1:08 PM [employer]ER Ventricular Rate 74 BPM Atrial Rate 74 BPM QRS Duration 172 ms Q-T Interval 528 ms QTC Calculation(Bazett) 586 ms P [place] 50 degrees R [place] -10 degrees T [place] 140 degrees Sinus rhythm with 1st degree A-V block Left bundle branch block Abnormal ECG ECG 12-LEAD Routine 01/20/2019 1:06 PM [employer]ER Resu lts for this procedure are in the results section . ECG 12-LEAD Routine 01/20/2019 1:06 PM [employer]ER Procedure Note - Interface, External Ris In - 01/20/2019 1:07 PM [employer]ER Ventricular Rate 75 BPM Atrial Rate 75 BPM QRS Duration 174 ms Q-T Interval 526 ms QTC Calculation(Bazett) 587 ms P [place] 58 degrees R [place] -1 degrees T [place] 148 degrees Sinus rhythm with 1st degree A-V block Left bundle branch block Abnormal ECG POCT-GLUCOSE METER Routine 01/20/2019 12:59 Resul ts for this PM [employer] procedure are i n the results section. PREPARE LEUKO-REDUCED Routine 01/20/2019 11:16 Re sults for this RBC AM [employer] procedure are i n the results section. POCT-ACT Routine 01/20/2019 10:14 Results for this AM [employer] procedure are i n the results section. URINALYSIS W/ REFLEX Routine 01/20/2019 9:19 Res ults for this URINE CULTURE AM [employer] procedure are in the results section. URINE CULTURE Routine 01/20/2019 9:19 Results fo r this AM [employer] procedure are i n the results section. TRANSESOPHAGEAL ECHO Routine 01/20/2019 7:49 Res ults for this AM [employer] procedure are i n the results section. CONT WAVE PULSED Routine 01/20/2019 7:23 DOPPLER AM [employer]ER COLOR-FLOW MAPPING Routine 01/20/2019 7:23 AM [employer]ER TAVR / STEPHEN MCR - IP 01/20/2019 7:06 Nonrheumatic a ortic PROC ONLY AM [employer] valve stenosis Case Notes (1)CASE 1135/ [place] ANESTHESIA (CELLAVISION MANUAL DIFF) Routine 01/20/2019 4:04 AM [employer]ER Results for this procedure are i n the results section . CBC W/PLT COUNT & AUTO Routine 01/20/2019 4:04 AM [employer]ER Results for this DIFFERENTIAL procedure are i n the results section . APTT Routine 01/20/2019 4:04 AM [employer]ER Resu lts for this procedure are i n the results section . MAGNESIUM Routine 01/20/2019 4:04 AM [employer]ER Resu lts for this procedure are i n the results section . CBC W/PLT COUNT & AUTO Routine 01/20/2019 4:04 AM [employer]ER Results for this DIFFERENTIAL procedure are i n the results section . BASIC METABOLIC PANEL (7) Routine 01/20/2019 4:04 AM [employer]ER Results for this procedure are i n the results section . POCT-GLUCOSE METER Routine 01/19/2019 11:09 PM [employer]ER Results for this procedure are i n the results section . APTT Routine 01/19/2019 5:51 PM [employer]ER Resu lts for this procedure are i n the results section . POCT-GLUCOSE METER Routine 01/19/2019 4:48 PM [employer]ER Results for this procedure are i n the results section . POCT-GLUCOSE METER Routine 01/19/2019 11:26 AM [employer]ER Results for this procedure are i n the results section . APTT Routine 01/19/2019 11:24 AM [employer]ER Resu lts for this procedure are i n the results section . POCT-GLUCOSE METER Routine 01/19/2019 8:05 AM [employer]ER Results for this procedure are i n the results section . (CELLAVISION MANUAL DIFF) Routine 01/19/2019 4:02 AM [employer]ER Results for this procedure are i n the results section . CBC W/PLT COUNT & AUTO Routine 01/19/2019 4:02 AM [employer]ER Results for this DIFFERENTIAL procedure are i n the results section . LACTIC ACID, VENOUS Routine 01/19/2019 4:02 AM [employer]ER Results for this procedure are i n the results section . MAGNESIUM Routine 01/19/2019 4:02 AM [employer]ER Resu lts for this procedure are i n the results section . CBC W/PLT COUNT & AUTO Routine 01/19/2019 4:02 AM [employer]ER Results for this DIFFERENTIAL procedure are i n the results section . BASIC METABOLIC PANEL (7) Routine 01/19/2019 4:02 AM [employer]ER Results for this procedure are i n the results section . POCT-GLUCOSE METER Routine 01/18/2019 10:39 PM [employer]ER Results for this procedure are i n the results section . TRANSFUSION SERVICE REPORT 01/18/2019 6:02 PM [employer]EL [employer]ER - SCAN POCT-GLUCOSE METER Routine 01/18/2019 5:40 PM [employer]ER Results for this procedure are i n the results section . POCT-GLUCOSE METER Routine 01/18/2019 12:30 PM [employer]ER Results for this procedure are i n the results section . POCT-GLUCOSE METER Routine 01/18/2019 12:16 PM [employer]ER Results for this procedure are i n the results section . POCT-GLUCOSE METER Routine 01/18/2019 7:49 AM [employer]ER Results for this procedure are i n the results section . CBC W/PLT COUNT & AUTO Routine 01/18/2019 3:43 AM [employer]ER Results for this DIFFERENTIAL procedure are i n the results section . MAGNESIUM Routine 01/18/2019 3:43 AM [employer]ER Resu lts for this procedure are i n the results section . CBC W/PLT COUNT & AUTO Routine 01/18/2019 3:43 AM [employer]ER Results for this DIFFERENTIAL procedure are i n the results section . BASIC METABOLIC PANEL (7) Routine 01/18/2019 3:43 AM [employer]ER Results for this procedure are i n the results section . APTT Routine 01/18/2019 3:43 AM [employer]ER Resu lts for this procedure are i n the results section . ECG 12-LEAD Routine 01/17/2019 8:18 PM [employer]ER Resu lts for this procedure are i n the results section . ECG 12-LEAD Routine 01/17/2019 8:18 PM [employer]ER Procedure Note - Interface, External Ris In - 01/17/2019 7:48 PM [employer]ER Ventricular Rate 154 BPM Atrial Rate 90 BPM QRS Duration 94 ms Q-T Interval 314 ms QTC Calculation(Bazett) 502 ms R [place] 20 degrees T [place] 90 degrees Atrial fibrillation with rap id ventricular response Septal infarct (cited on or before 17-JAN-2019) Abnormal ECG When compared with ECG of 20:17, No significant change was fo und ECG 12-LEAD Routine 01/17/2019 8:17 PM [employer]ER Resu lts for this procedure are in the results section . ECG 12-LEAD Routine 01/17/2019 8:17 PM [employer]ER Procedure Note - Interface, External Ris In - 01/17/2019 7:47 PM [employer]ER Ventricular Rate 149 BPM Atrial Rate 136 BPM QRS Duration 98 ms Q-T Interval 342 ms QTC Calculation(Bazett) 538 ms R [place] 18 degrees T [place] 90 degrees Atrial fibrillation with rap id ventricular response Anteroseptal infarct , age u ndetermined Abnormal ECG When compared with ECG of 20:52, Anteroseptal infarct is now Present Nonspecific T wave abnormali ty no longer evident in Inferior leads POCT-GLUCOSE METER Routine 01/17/2019 4:51 Resul ts for this PM [employer] procedure are i n the results section. POCT-ACT Routine 01/17/2019 1:07 Results for this PM [employer] procedure are i n the results section. 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 CBC W/PLT COUNT & AUTO Routine 01/17/2019 5:07 AM [employer] Results for this DIFFERENTIAL procedure are i n the results section . TYPE AND SCREEN, AUTOMATED Routine 01/17/2019 5:07 AM [employer] Results for this procedure are i n the results section . PROTHROMBIN TIME/INR Routine 01/17/2019 5:07 AM [employer]ER Results for this procedure are i n the results section . MAGNESIUM Routine 01/17/2019 5:07 AM [employer]ER Resu lts for this procedure are i n the results section . CBC W/PLT COUNT & AUTO Routine 01/17/2019 5:07 AM [employer]ER Results for this DIFFERENTIAL procedure are i n the results section . BASIC METABOLIC PANEL (7) Routine 01/17/2019 5:07 AM [employer]ER Results for this procedure are i n the results section . APTT Routine 01/17/2019 5:07 AM [employer]ER Resu lts for this procedure are i n the results section . POCT-GLUCOSE METER Routine 01/16/2019 9:57 PM [employer]ER Results for this procedure are i n the results section . POCT-GLUCOSE METER Routine 01/16/2019 5:22 PM [employer]ER Results for this procedure are i n the results section . POCT-GLUCOSE METER Routine 01/16/2019 11:55 AM [employer]ER Results for this procedure are i n the results section . POCT-GLUCOSE METER Routine 01/16/2019 7:38 AM [employer]ER Results for this procedure are i n the results section . CBC W/PLT COUNT & AUTO Routine 01/16/2019 4:15 AM [employer]ER Results for this DIFFERENTIAL procedure are i n the results section . APTT Routine 01/16/2019 4:15 AM [employer]EL [employer]ER Resu lts for this procedure are i n the results section . MAGNESIUM Routine 01/16/2019 4:15 AM [employer]ER Resu lts for this procedure are i n the results section . CBC W/PLT COUNT & AUTO Routine 01/16/2019 4:15 AM [employer]ER Results for this DIFFERENTIAL procedure are i n the results section . BASIC METABOLIC PANEL (7) Routine 01/16/2019 4:15 AM [employer]ER Results for this procedure are i n the results section . POCT-GLUCOSE METER Routine 01/15/2019 9:22 PM [employer]ER Results for this procedure are i n the results section . POCT-GLUCOSE METER Routine 01/15/2019 5:50 PM [employer]ER Results for this procedure are i n the results section . POCT-GLUCOSE METER Routine 01/15/2019 3:12 PM [employer]ER Results for this procedure are i n the results section . CAROTID DOPPLER BILATERAL Routine 01/15/2019 3:00 PM [employer]ER Results for this procedure are i n the results section . ARTERIAL DOPPLER LEGS Routine 01/15/2019 1:50 PM [employer]ER Results for this BILATERAL procedure are i n the results section . POCT-GLUCOSE METER Routine 01/15/2019 12:15 PM [employer]ER Results for this procedure are i n the results section . APTT Routine 01/15/2019 9:20 AM [employer]ER Resu lts for this procedure are i n the results section . POCT-GLUCOSE METER Routine 01/15/2019 7:45 AM [employer]ER Results for this procedure are i n the results section . CBC W/PLT COUNT & AUTO Routine 01/15/2019 2:13 AM [employer] Results for this DIFFERENTIAL procedure are i n the results section . HEMOGLOBIN A1C Routine 01/15/2019 2:13 AM [employer]ER Re sults for this procedure are i n the results section . MAGNESIUM Routine 01/15/2019 2:13 AM [employer]ER Resu lts for this procedure are i n the results section . CBC W/PLT COUNT & AUTO Routine 01/15/2019 2:13 AM [employer]ER Results for this DIFFERENTIAL procedure are i n the results section . BASIC METABOLIC PANEL (7) Routine 01/15/2019 2:13 AM [employer]ER Results for this procedure are i n the results section . APTT Routine 01/15/2019 2:13 AM [employer]ER Resu lts for this procedure are i n the results section . POCT-GLUCOSE METER Routine 01/14/2019 10:00 PM [employer]ER Results for this procedure are i n the results section . ECHOCARDIOGRAM REPORT - SCAN 01/14/2019 9:20 PM [employer]EL [employer]ER APTT Routine 01/14/2019 7:39 PM [employer]EL [employer]ER Resu lts for this procedure are i n the results section . OCCULT BLOOD, STOOL Routine 01/14/2019 7:39 PM [employer]ER Results for this procedure are i n the results section . TRANSFUSION SERVICE REPORT - 01/14/2019 5:50 PM [employer]ER SCAN POCT-GLUCOSE METER Routine 01/14/2019 5:29 PM [employer]ER Results for this procedure are i n the results section . CTA CHEST Routine 01/14/2019 4:46 PM [employer]ER Resu lts for this procedure are i n the results section . CTA ABDOMEN & PELVIS Routine 01/14/2019 4:46 PM [employer]ER Results for this procedure are i n the results section . POCT-GLUCOSE METER Routine 01/14/2019 2:21 PM [employer]ER Results for this procedure are i n the results section . POCT-GLUCOSE METER Routine 01/14/2019 12:40 PM [employer]ER Results for this procedure are i n the results section . 2D ECHO W/ DOPPLER GAIL 01/14/2019 11:00 AM [employer]ER Results for this (CW/PW/COLOR) procedure are in the results section . APTT Routine 01/14/2019 10:01 AM [employer]ER Resu lts for this procedure are i n the results section . POCT-GLUCOSE METER Routine 01/14/2019 8:07 AM [employer]ER Results for this procedure are i n the results section . TROPONIN I Add-On 01/14/2019 2:16 AM [employer]EL [employer]ER Resu lts for this procedure are i n the results section . MAGNESIUM Routine 01/14/2019 2:16 AM [employer]ER Resu lts for this procedure are i n the results section . BASIC METABOLIC PANEL (7) Routine 01/14/2019 2:16 AM [employer]ER Results for this procedure are i n the results section . CBC W/PLT COUNT & AUTO Routine 01/14/2019 1:51 AM [employer]ER Results for this DIFFERENTIAL procedure are i n the results section . CBC W/PLT COUNT & AUTO Routine 01/14/2019 1:51 AM [employer]ER Results for this DIFFERENTIAL procedure are i n the results section . PT/APTT Routine 01/14/2019 1:51 AM [employer]ER Resu lts for this procedure are i n the results section . XR CHEST 1 VIEW Routine 01/13/2019 10:20 PM [employer]EL [employer]ER R esults for this PORTABLE/BEDSIDE procedure a re in the results section . POCT-GLUCOSE METER Routine 01/13/2019 9:30 PM [employer]ER Results for this procedure are i n the results section . ECG 12-LEAD Routine 01/13/2019 8:52 PM [employer]EL [employer]ER Resu lts for this procedure are i n the results section . ECG 12-LEAD Routine 01/13/2019 8:52 PM [employer]EL [employer]ER Procedure Note - Interface, External Ris In - 01/13/2019 9:02 PM FUEL HANDLER Ventricular Rate 115 BPM Atrial Rate 115 BPM QRS Duration 94 ms Q-T Interval 370 ms QTC Calculation(Bazett) 511 ms R [place] 53 degrees T [place] -13 degrees Atrial fibrillation with rap id ventricular response with premature ventricular or aberrantly conducted complexes Nonspecific ST abnormality , probably digitalis effect Abnormal QRS-T angle, consid er primary T wave abnormality Abnormal ECG When compared with ECG of 20:51, Significant changes have occ urred ECG 12-LEAD Routine 01/13/2019 8:51 PM FUEL HANDLER Procedure Note - Interface, External Ris In - 01/13/2019 9:02 PM FUEL HANDLER Ventricular Rate 107 BPM Atrial Rate 107 BPM P-R Interval 184 ms QRS Duration 98 ms Q-T Interval 348 ms QTC Calculation(Bazett) 464 ms P [place] 44 degrees R [place] 53 degrees T [place] 10 degrees Sinus tachycardia with Irma ture atrial complexes Nonspecific ST abnormality Abnormal ECG No previous ECGs available ECG 12-LEAD Routine 01/13/2019 8:51 PM FUEL HANDLER Resu lts for this procedure are i n the results section . ABORH, MANUAL STAT 01/13/2019 8:35 PM FUEL HANDLER Res ults for this procedure are i n the results section . TSH/FREE T4 IF INDICATED Routine 01/13/2019 8:35 PM FUEL HANDLER Results for this procedure are i n the results section . TYPE AND SCREEN, Routine 01/13/2019 6:39 PM FUEL HANDLER Results for this AUTOMATED procedure are i n the results section . B-TYPE NATRIURETIC FACTOR Routine 01/13/2019 6:39 PM FUEL HANDLER Results for this (BNP) procedure are i n the results section . HEMOGLOBIN A1C AP Routine 01/13/2019 6:39 PM FUEL HANDLER Re sults for this procedure are i n the results section . TROPONIN I Add-On 01/13/2019 6:38 PM FUEL HANDLER Resu lts for this procedure are i n the results section . LIPID PANEL Add-On 01/13/2019 6:38 PM FUEL HANDLER Resu lts for this procedure are i n the results section . HEPATIC FUNCTION PANEL Add-On 01/13/2019 6:38 PM FUEL HANDLER Results for this procedure are i n the results section . PT/APTT Routine 01/13/2019 6:38 PM FUEL HANDLER Resu lts for this procedure are i n the results section . MAGNESIUM Routine 01/13/2019 6:38 PM FUEL HANDLER Resu lts for this procedure are i n the results section . BASIC METABOLIC PANEL (7) Routine 01/13/2019 6:38 PM FUEL HANDLER Results for this procedure are i n the results section . POCT-GLUCOSE METER Routine 01/13/2019 6:25 PM FUEL HANDLER Results for this procedure are i n the results section . after 12/10/2018 Results VASCULAR DIAGRAM -SCAN (01/29/2019 12:40 PM FUEL HANDLER)Only the most recent of2 results within the time period is included. Narrative Performed At This result has an attachment that is no t available. RHYTHM STRIP - SCAN (01/24/2019 8:31 AM FUEL HANDLER)Only the most recent of2 results within the time period is included. Narrative Performed At This result has an attachment that is no t available. EKG-SCANNED (01/24/2019 8:31 AM FUEL HANDLER) Narrative Performed At This result has an attachment that is no t available. CARDIAC CATH REPORT - SCAN (01/24/2019 8:31 AM FUEL HANDLER) Narrative Performed At This result has an attachment that is no t available. CARDIAC CATH REPORT - SCAN (01/24/2019 8:31 AM FUEL HANDLER) Narrative Performed At This result has an attachment that is no t available. ECHOCARDIOGRAM REPORT - SCAN (01/22/2019 9:20 PM FUEL HANDLER) Narrative Performed At This result has an attachment that is no t available. POC-Glucose meter (01/22/2019 12:08 PM FUEL HANDLER)Only the most recent of37 results within the time period is included. POC-Glucose Meter 91Comment: : 70 - 110 mg/dL JAYJAY DANGELO TESTED AT [address], [address]: [employer]iller/Technic ministerio ID = [id number] for LISA GUZMAN Specimen Blood Performing Organization Address City/State/Zipcode Phone Number [facility] JONESRani [address] [address] CENTER XR chest 1 view portable / bedside (01/22/2019 11:41 AM FUEL HANDLER)Only the most recent of2 resultswithin the time period is included. Specimen Narrative Performed At FINAL REPORT GE RIS INDICATION: chf COMPARISON: None TECHNIQUE: Single frontal view of the est. FINDINGS: Lungs and pleura: Clear lungs. No effusi on. Heart and mediastinum: Normal heart size . Unremarkable mediastinal contours. Osseous structures: No acute abnormality . Other: None. IMPRESSION: Mild central pulmonary venous congestion . Signed: Kat Menjivar MD Report Verified Date/Time: 01/22/2019 11:51:04 Reading Location: [employer] Reading Room Procedure Note Interface, External Ris In - 01/22/2019 12:01 PM FUEL HANDLER FINAL REPORT INDICATION: chf COMPARISON: None TECHNIQUE: Single frontal view of the est. FINDINGS: Lungs and pleura: Clear lungs. No effusi on. Heart and mediastinum: Normal heart size . Unremarkable mediastinal contours. Osseous structures: No acute abnormality . Other: None. IMPRESSION: Mild central pulmonary venous congestion . Signed: Kat Menjivar MD Report Verified Date/Time: 01/22/2019 1 1:51:04 Reading Location: [employer] [facility] Reading Room Performing Organization Address City/State/Zipcode Phone Number RIS Digoxin level (01/22/2019 8:42 AM FUEL HANDLER) Pathologist Sig nature Digoxin Lvl 0.6 (L) 0.8 - 2.0 ng/mL [facility] Specimen Blood Narrative Performed At Draw 1 hour prior to morning digoxin dose [facility] Performing Organization Address City/[facility]/Zipcode Phone Number [facility] [address] [place] [address] CENTER Manual Differential (01/22/2019 3:33 AM FUEL HANDLER)Only the most recent of3 results within the time period is included. Pathologist Sig nature % Neutros 83 % [facility] % Lymphs 6 % [facility] % Monos 5 % [facility] % Eos 1 % [facility] % Metamyelo 1 (H) 0 - 0 % [facility] % Myelo 2 (H) 0 - 0 % [facility] % Atypical Lymphs 2 (H) 0 - 0 % [facility] # Neutros 8.72 (H) 1.78 - 5.38 K/ul [facility] # Lymphs 0.63 (L) 1.32 - 3.57 K/ul [facility] # Monos 0.53 0.30 - 0.82 K/uL [facility] # Eos 0.11 0.04 - 0.54 K/uL [facility] # Metamyelo 0.11 (H) 0.00 - 0.00 K/uL [facility] # Myelo 0.21 (H) 0.00 - 0.00 K/uL [facility] # Atypical Lymphs 0.21 (H) 0.00 - 0.00 K/uL [facility] Total Counted 100 [facility] RBC Morphology Normal [facility] Smudge Cells Present [facility] Giant Platelet Present [facility] Platelet Conc Decreased [facility] Specimen Blood - Entire left upper arm (body stru cture) Narrative Performed At Received comment: [facility] User comments: Slide comments: Performing Organization Address City/State/Zipcode Phone Number [facility] [address] [place] [address] CENTER CBC with platelet count + automated diff (01/22/2019 3:33 AM FUEL HANDLER)Only the most recent of9 resultswithin the time period is included. Pathologist Sig nature WBC 10.5 3.5 - 10.5 K/L [facility] RBC 3.88 (L) 4.63 - 6.08 M/L [facility] Hemoglobin 11.7 (L) 13.7 - 17.5 GM/DL [facility] Hematocrit 34.0 (L) 40.1 - 51.0 % [facility] MCV 87.6 79.0 - 92.2 fL [facility] MCH 30.2 25.7 - 32.2 pg [facility] MCHC 34.4 32.3 - 36.5 GM/DL [facility] RDW 14.6 (H) 11.6 - 14.4 % [facility] Platelets 124 (L) 150 - 450 K/CU MM [facility] MPV 11.9 9.4 - 12.4 fL [facility] nRBC 0 0 - 0 /100 WBC [facility] Specimen Blood - Entire left upper arm (body stru cture) Performing Organization Address City/[facility] Cent[facility] Phone Number [address] [address] CENTER Magnesium (01/22/2019 3:33 AM FUEL HANDLER)Only the most recent of10 resultswithin the time period is included. Pathologist Sig nature Magnesium 2.0 1.6 - 2.6 mg/dL [facility] Specimen Blood - Entire left upper arm (body stru cture) Performing Organization Address City/[facility]/Zipcode Phone Number [address] [address] CENTER Basic Metabolic Panel (01/22/2019 3:33 AM FUEL HANDLER)Only the most recent of10 results within the time period is included. Sodium 134 (L) 136 - 145 meq/L [facility] Potassium 4.1 3.5 - 5.1 meq/L [facility] Chloride 101 98 - 107 meq/L [facility] CO2 27 22 - 29 meq/L [facility] BUN 13 7 - 21 mg/dL [facility] Creatinine 0.74 0.57 - 1.25 [facility] mg/dL [facility] Glucose 125 (H) 70 - 105 mg/dL [facility] Calcium 8.6 8.4 - 10.2 [facility] mg/dL [facility] EGFR 101Comment: mL/min/1.[address] [facility] ESTIMATED GFR IS NOT [facility] ACCURATE CENTER CREATININE CLEARANCE IN PREDICTING GLOMERULAR FILTRATION RATE. ESTIMATED GFR IS NOT APPLICABLE FOR DIALYSIS PATIENTS. Specimen Blood - Entire left upper arm (body stru cture) Performing Organization Address City/State/Zipcode Phone Number [facility] [address] [place] [address] CENTER ECHOCARDIOGRAM REPORT - SCAN (01/21/2019 9:23 PM FUEL HANDLER) Narrative Performed At This result has an attachment that is no t available. TRANSFUSION SERVICE REPORT - SCAN (01/21/2019 6:51 PM FUEL HANDLER)Only the most recent of3 resultswithin the time period is included. Narrative Performed At This result has an attachment that is no t available. 2D Echo W/Doppler(CW/PW/Color) (01/21/2019 1:47 PM FUEL HANDLER) Pathologist Sig nature Ejection Fraction 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 Clinical History A ON CS&DCHF NYHA 4;;CAD;SEVERIANO TO LAD&RCA;DM;HTN;S/P TAVR(NOE#29) 01/20/19. Height: 72 inches Weight: 88 kg (194 lbs) BSA: 2.1 m^2 BMI: 26.31 kg/m^2 HR: 82 bpm BP: 114/69 mmHg Summary 1. Normal LV size. All segments are mildly hypokinetic. LVEF is mildly reduced (40-44%) 2. Normal RV size and function. 3. Grade 2 diastolic dysfunction (moderately increased LA pressure). 4. Well seated and well functioning Noe tissue TAVR with trivial prosthetic AoV regurgitaton and normal (DOI) of 0.73 . Previous Study In comparison with the prior exam 01/20/2019 (SHAN) the following changes are noted: left ventricular systolic function has improved . Signature Findings Technical Quality: Technically adequate exam. Left Ventricle The left ventricle is chamber size (by vol index) is normal (male - LVED vol - 34-74ml/m2). No evidence of LV hypertrophy. All of the LV segments are mildly hypokinetic . Global LV systolic function mildly reduced . LVEF by Glynn's metho d of disk assessment is mildly reduced (40-44%) . Normal (cardiac index 2-3 L/min/m2) cardiac out put state at rest is noted. Grade 2 diastolic dysfunction (moderately increased LA pressure). Left Atrium LA size is moderately enlarged (42-48 ml/m2) . Right Ventricle The right ventricular chamber size and systolic function are within normal limits. Right Atrium RA size is normal. Aortic Valve A Noe percutaneous (TAVR) biologic AoV prosthesis is visualized . Prosthetic AoV regurgitaton is trivial . AoV dimensionless obstructive index (DOI)) i s 0.73 . Mitral Valve Mild MV leaflet thickening. Trace mitral regurgitation. Tricuspid Valve TV structure is normal. Mild tricuspid regurgitation. Estimated peak systolic PA pressure is 45-50 mmHg . Pulmonic Valve Normal PV structure and function by limited views and Doppler. Aorta Aortic root size (SInus of Valsalva diameter) is norm al . Pericardium No pericardial effusion is visualized. IVC/SVC/PA/PV/Pleural The estimated RA pressure by IVC dynamics 5-10mmHg . Chambers/Structures Left Atrium LA Volume: 87.81 ml LA Vol. Index: 42 ml/m^2 Left Ventricle LVIDd: 4.48 cm LV Septum Diastolic: 1.09 cm LV PW Diastolic: 1.05 cm LVEDV Glynn's:126.7 ml LVESV Glynn's:71.78 ml LVEF Glynn's: 43.4 % LVEDVI: 60 ml/m^2 LVESVI: 34 ml/m^2 LVOT Diameter: 1.98 cm Aorta Ao Root S of Gia.: 3.25 cm Doppler/Quantitative Measurements Mitral Valve MV Peak E-Wave: 0.83 m/s MV Peak A-Wave: 0.96 m/s E/A Ratio: 0.86 Peak Gradient: 2.73 mmHg Deceleration Time: 168 msec MV Macario. Peak: Tissue Doppler E' Septal Velocity: 0.04 m/s E/E': 20.88 Aortic Valve Peak Velocity: 2.05 m/s Mean Velocity: 1.26 m/s Peak Gradient: 16.85 mmHg Mean Gradient: 7.52 mmHg AV Area (continuity): 2.23 cm^2 AV VTI: 27.94 cm AV DVI: 0.73 LVOT Peak Velocity: 1.26 m/s Peak Gradient: 6.39 mmHg Mean Velocity: 0.86 m/s Mean Gradient: 3.49 mmHg LVOT Diameter: 1.98 cm LVOT VTI: 20.27 cm LVOT Area: 3.08 cm^2 LVOT SV:62.38 ml LVOT CO: 5.12 l/min LVOT CI: 2.44 l/min/m^2 Tricuspid Valve TR Velocity: 2.9 m/s TR Gradient: 33.63 mmHg Procedure Note Interface, External Ris In - 01/22/2019 11:46 AM FUEL HANDLER Transthoracic Echocardiography Report (TTE) Demographics Patient Name KRYSTIAN RUBIN Date of Study 01/21/2019 LIU Gende r Male Visit Number [id number] Race Unknown Room Number C625 Number Date of 1935 Refer ring MD Allan Pickens Age 83 year(s) Sonog rapher Alanna Wolf RD Lay Midwife Zuleika Ziegler RDCS Inter preting Allan Ramirez MD Procedure Type of Study TTE procedure:2DECHO W DOPPLE R(CW/PW/COLOR) (GAIL) Indications:S/P TAVR. Clinical History A ON CS&DCHF NYHA 4;;CAD;SEVERIANO TO LAD&RC A;DM;HTN;S/P TAVR(NOE#29) 01/20/19. Height: 72 inches Weight: 88 kg (194 lbs ) BSA: 2.1 m^2 BMI: 26.31 kg/m^2 HR: 82 bpm BP: 114/69 mmHg Summary 1. Normal LV size. All segments are mil dly hypokinetic. LVEF is mildly reduced (40-44%) 2. Normal RV size and function. 3. Grade 2 diastolic dysfunction (moder ately increased LA pressure). 4. Well seated and well functioning Sap ien tissue TAVR with trivial prosthetic AoV regurgitaton and normal (DOI) of 0.73 . Previous Study In comparison with the prior exam 2018 (SHAN) the following changes are noted: left ventricular systolic fu nction has improved . Signature Findings Technical Quality: Technically adequate exam. Left Ventricle The left ventric le is chamber size (by vol index) is normal (male - LVED vol - 34-74ml/m2). No evidence of LV h ypertrophy. All of the LV segments are mildly hypok inetic . Global LV systolic function mildly reduced . LVEF by Glynn's method of disk assessme nt is mildly reduced (40-44%) . Normal (cardiac index 2-3 L/min/m2) cardiac output state at rest is noted. Grade 2 diastolic dysfunction (mod erately increased LA pressure). Left Atrium LA size is moder ately enlarged (42-48 ml/m2) . Right Ventricle The right ventri cular chamber size and systolic function are wit hin normal limits. Right Atrium RA size is carlos l. Aortic Valve A Noe percuta neous (TAVR) biologic AoV prosthesis is vi sualized . Prosthetic AoV r egurgitaton is trivial . AoV dimensionles s obstructive index (DOI)) is 0.73 . Mitral Valve Mild MV leaflet thickening. Trace mitral reg urgitation. Tricuspid Valve TV structure is normal. Mild tricuspid r egurgitation. Estimated peak s ystolic PA pressure is 45-50 mmHg . Pulmonic Valve Normal PV struct ure and function by limited views and Doppler. Aorta Aortic root size (SInus of Valsalva diameter) is normal . Pericardium No pericardial e ffusion is visualized. IVC/SVC/PA/PV/Pleural The estimated RA pressure by IVC dynamics 5-10mmHg . Chambers/Structures Left Atrium LA Volume: 87.81 ml LA Vol. Index: 42 ml/m^2 Left Ventricle LVIDd: 4.48 cm LV Septum Diastolic: 1.09 cm LV PW Diastolic: 1.05 cm LVEDV Glynn's:126.7 ml LVESV Glynn's:71.78 ml LVEF Glynn's: 43.4 % LVEDVI: 60 ml/m^2 LVESVI: 34 ml/m^2 LVOT Diameter: 1.98 cm Aorta Ao Root S of Gia.: 3.25 cm Doppler/Quantitative Measurements Mitral Valve MV Peak E-Wave: 0.83 m/s MV Peak A-Wave: 0.96 m/s E/A Ratio: 0.86 Peak Gradient: 2.73 mmHg Deceleration Time: 168 msec MV Macario. Peak: Tissue Doppler E' Septal Velocity: 0.04 m/s E/E': 20.88 Aortic Valve Peak Velocity: 2.05 m/s Mean Velocity: 1.26 m/s Peak Gradient: 16.85 mmHg Mean Gradient: 7.52 mmHg AV Area (continuity): 2.23 cm^2 AV VTI: 27.94 cm AV DVI: 0.73 LVOT Peak Velocity: 1.26 m/s Pea k Gradient: 6.39 mmHg Mean Velocity: 0.86 m/s Juani n Gradient: 3.49 mmHg LVOT Diameter: 1.98 cm LVO T VTI: 20.27 cm LVOT Area: 3.08 cm^2 LVO T SV:62.38 ml LVOT CO: 5.12 l/min LVO T CI: 2.44 l/min/m^2 Tricuspid Valve TR Velocity: 2.9 m/s TR Gradient: 33.63 mmHg Performing Organization Address City/State/[facility] Cent[facility] Phone Number [facility] ECG 12 lead (01/21/2019 6:08 AM FUEL HANDLER)Only the most recent of8 resultswithin the time period is included. Specimen Narrative Performed At Ventricular Rate 84 BPM GE MUSE Atrial Rate 84 BPM P-R Interval 202 ms QRS Duration 166 ms Q-T Interval 472 ms QTC Calculation(Bazett) 557 ms P [place] 70 degrees R [place] 4 degrees T [place] 156 degrees Sinus rhythm with Premature supraventric ular complexes Left bundle branch block Abnormal ECG Confirmed by MD JANA, MISAEL Baires ([id number]) on 01/22/20 19 8:30:13 AM Procedure Note Interface, External Ris In - 01/21/2019 8:30 AM FUEL HANDLER Ventricular Rate 84 BPM Atrial Rate 84 BPM P-R Interval 202 ms QRS Duration 166 ms Q-T Interval 472 ms QTC Calculation(Bazett) 557 ms P [place] 70 degrees R [place] 4 degrees T [place] 156 degrees Sinus rhythm with Premature supraventric ular complexes Left bundle branch block Abnormal ECG Confirmed by MD JANA, MISAEL Baires ([id number]) on 01/21/2019 8:30:13 AM Performing Organization Address City/[facility] Cent[facility]ode Phone Number GE MUSE Prepare Leuko-Red RBC (01/20/2019 11:16 AM FUEL HANDLER) Pathologist Sig nature CROSSMATCH COMPATIBLE SAFETRACE TX Unit ABO A Neg SAFETRACE TX UNIT NUMBER [id number] SAFETRACE TX Status RETURNED FROM ISSUE SAFETRACE TX Blood Bank Product RED BLOOD CELLS SAFETRACE TX PRODUCT CODE [id number] SAFETRACE TX CROSSMATCH COMPATIBLE SAFETRACE TX Unit ABO A Neg SAFETRACE TX UNIT NUMBER [id number] SAFETRACE TX Status RETURNED FROM ISSUE SAFETRACE TX Blood Bank Product RED BLOOD CELLS SAFETRACE TX PRODUCT CODE [id number] SAFETRACE TX Specimen Other Performing Organization Address [facility] Phone Number SAFETRACE TX POC ACTIVATED CLOTTING TIME (01/20/2019 10:14 AM FUEL HANDLER)Only the most recent of2 resultswithin the time period is included. Activated Clotting 351Comment: sec [facility] Time Reference Range: [facility] 74-137 seconds, [place] Baseline/TESTED AT [address] [address] Specimen Blood Performing Organization Address [facility] Centerconh Phone Number [address] [phone] CENTER Urinalysis w/Microscopic + Reflex to Culture (01/20/2019 9:19 AM FUEL HANDLER) Pathologist Amaris Color, UA Yellow [facility] Clarity, UA Cloudy [facility] Specific [place], 1.011 1.001 - 1.035 [facility] pH, UA 5.5 5.0 - 8.0 [facility] Protein, UA 10 mg/dL (A) Negative [facility] Glucose, UA Negative Negative [facility] Ketones, UA Negative Negative [facility] Bilirubin, UA Negative Negative [facility] Blood, UA Moderate (A) Negative [facility] Nitrite, UA Positive (A) Negative [facility] Leukocytes, UA Large (A) Negative [facility] Urobilinogen, UA 0.2 0.2 - 1.0 mg/dL [facility] RBC, UA 10 /HPF [facility] WBC, UA 512 /HPF [facility] Bacteria, UA Many [facility] Mucus Occasional [facility] Specimen Source [facility] Specimen Urine - Urinary catheter, device (physic al object) Performing Organization Address [facility] Phone Number [facility] [address] [place] [address] CENTER Urine culture (01/20/2019 9:19 AM FUEL HANDLER) Pathologist Sig nature Result >100,000 col/mL [facility] Escherichia coli (A) [facility] Specimen Urine - Urinary catheter, device (physic al object) Organism Antibiotic Method Susceptibility Escherichia coli Amikacin <=2: Susceptibl e Escherichia coli Ampicillin + Sulbactam >=32: Re sistant Escherichia coli Aztreonam <=1: Susceptibl e Escherichia coli Cefepime <=1: Susceptibl e Escherichia coli Cefoxitin <=4: Susceptibl e Escherichia coli Ceftazidime <=1: Susceptibl e Escherichia coli Ceftriaxone <=1: Susceptibl e Escherichia coli Ertapenem <=0.5: Suscepti ble Escherichia coli Gentamicin <=1: Susceptibl e Escherichia coli Levofloxacin <=0.12: Suscept ible Escherichia coli Meropenem <=0.25: Suscept ible Escherichia coli Nitrofurantoin <=16: Susceptib le Escherichia coli Piperacillin + Tazobactam <=4: Susceptible Escherichia coli Tetracycline <=1: Susceptibl e Escherichia coli Tobramycin <=1: Susceptibl e Escherichia coli Trimethoprim + Sulfamethoxazole <=20: Susceptible Performing Organization Address City/[facility]/Zipcode Phone Number [facility] [address] [place] [address] CENTER Transesophageal echo (01/20/2019 7:49 AM FUEL HANDLER) Pathologist Sig nature Ejection Fraction [facility] ECHO HEARTLAB [facility] Specimen Narrative Performed At Transesophageal Echocardiography Report (SHAN) 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 Clinical History CHF,,CAD,DM,HTN Height: 72 inches Weight: 88 kg (194 lbs) BSA: 2.1 m^2 BMI: 26.31 kg/m^2 HR: 84 bpm BP: 98/63 mmHg Summary POST PROCEDURE: S/P TAVR A Noe percutaneous (TAVR) biologic AoV prosthesis is visualized . The prosthetic AoV appears well-seated with normal function by Doppler. AoV resting Mean Gradient = 4.4mmHg Prosthetic AoV regurgitaton is mild . Prosthetic AR locations(s) are paravalvular in the following location(s) anterior . Normal overall LV systolic function. No pericardial effusion is visualized. Signature Findings Left Ventricle The left ventricle is chamber size (by vol index) is normal (male - LVED vol - 34-74ml/m2). LVEF by Glynn's method of disk assessment is moderately reduced (35-39%) . Left Atrium LA is enlarged but severity assessment is unreliable due to know SHAN sector size limitation. No evidence of left atrial or left atrial appendage thrombus. Right The right ventricular chamber size and systolic function Ventricle are within normal abarca its. Right Atrium RA size is normal. Aortic Valve Severe AoV cusp thicken ing. Severe AoV cusp calcification. There is moderate to severe aortic regurgitation. There is severe aortic stenosis. POST PROCEDURE: S/P TAVR A Noe percutaneous (TAVR) biologic AoV prosthesis is visualized . The prosthetic AoV appears well-seated with normal function by Doppler. AoV resting Mean Gradient = 4.4mmHg Prosthetic AoV regurgitaton is mild . Prosthetic AR locations(s) are paravalvular in the following location(s) anterior . Mitral Valve Mild MV leaflet thicken ing. Mild mitral regu rgitation. Tricuspid TV structure is carlos l. Valve Mild tricuspid regu rgitation. Unable to estimate peak systolic PA pressure; inadequate TR velocity signal. Pulmonic Valve Normal PV structure and function by limited views and Doppler. Aorta Aortic root size (SInus of Valsalva diameter) is normal . Pericardium No pericardial effusion is visualized. Left Ventricle LVEDV Glynn's:129.66 ml LVESV Glynn's:81.55 ml LVEF Glynn's: 37.1 % LVEDVI: 62 ml/m^2 LVESVI: 39 ml/m^2 Doppler/Quantitative Measurements Aortic Valve Peak Velocity: 4.95 m/s Mean Velocity: 3.59 m/s Peak Gradient: 97.85 mmHg Mean Gradient: 57.47 mmHg AV VTI: 114.34 cm AV DVI: 0.1 LVOT Peak Velocity: 0.47 m/s Peak Gradient: 0.9 mmHg Mean Velocity: 0.35 m/s Mean Gradient: 0.56 mmHg LVOT VTI: 11.54 cm Procedure Note Interface, External Ris In - 01/21/2019 8:54 AM FUEL HANDLER Transesophageal Echocardiography Report (SHAN) Demographics Patient Name KRYSTIAN RUBIN Date of Study 01/20/2019 LIU G[place] er Male Visit Number [id number] Race Unknown Room Number 6104 Number Date of 1935 Refe MD Aiden Lobato Age 83 year(s) Marley iL [facility] rpretin Aiden Angel MD Procedure Type of Study SHAN procedure:TRANSESOPHAGEAL ECHO Indications:TAVR. Clinical History CHF,,CAD,DM,HTN Height: 72 inches Weight: 88 kg (194 lbs ) BSA: 2.1 m^2 BMI: 26.31 kg/m^2 HR: 84 bpm BP: 98/63 mmHg Summary POST PROCEDURE: S/P TAVR A Noe percutaneous (TAVR) biologic A oV prosthesis is visualized . The prosthetic AoV appears well-seated with normal function by Doppler. AoV resting Mean Gradient = 4.4mmHg Prosthetic AoV regurgitaton is mild . P rosthetic AR locations(s) are paravalvular in the following location( s) anterior . Normal overall LV systolic function. No pericardial effusion is visualized. Signature Findings Left Ventricle The left ventricle is ch desi size (by vol index) is normal (male - LVED vol - 34-74 ml/m2). LVEF by Glynn's method of disk assessment is moderately reduced (35-39%) . Left Atrium LA is enlarged but sever ity assessment is unreliable due to know SHAN sector size abarca itation. No evidence of left atri al or left atrial appendage thrombus. Right The right ventricular ch desi size and systolic function Ventricle are within normal limits . Right Atrium RA size is normal. Aortic Valve Severe AoV cusp thickeni ng. Severe AoV cusp calcific ation. There is moderate to sev ere aortic regurgitation. There is severe aortic s tenosis. POST PROCEDURE: S/P TAVR A Noe percutaneous (T AVR) biologic AoV prosthesis is visualized . The prosthetic AoV appea rs well-seated with normal function by Doppler. AoV resting Mean Gradien t = 4.4mmHg Prosthetic AoV regurgita ton is mild . Prosthetic AR locations( s) are paravalvular in the following location(s) an terior . Mitral Valve Mild MV leaflet thickeni ng. Mild mitral regurgitatio n. Tricuspid TV structure is normal. Valve Mild tricuspid regurgita tion. Unable to estimate peak systolic PA pressure; inadequate TR velocity signal. Pulmonic Valve Normal PV structure and function by limited views and Doppler. Aorta Aortic root size (SInus of Valsalva diameter) is normal . Pericardium No pericardial effusion is visualized. Left Ventricle LVEDV Glynn's:129.66 ml LVESV Glynn's:81.55 ml LVEF Glynn's: 37.1 % LVEDVI: 62 ml/m^2 LVESVI: 39 ml/m^2 Doppler/Quantitative Measurements Aortic Valve Peak Velocity: 4.95 m/s Me an Velocity: 3.59 m/s Peak Gradient: 97.85 mmHg Me an Gradient: 57.47 mmHg AV VTI: 114.34 cm AV DVI: 0.1 LVOT Peak Velocity: 0.47 m/s Pea k Gradient: 0.9 mmHg Mean Velocity: 0.35 m/s Juani n Gradient: 0.56 mmHg LVO T VTI: 11.54 cm Performing Organization Address City/[facility]/Zipcode Phone Number [facility] ECHO HEARTLAB MKCKESSON CPACS aPTT (01/20/2019 4:04 AM FUEL HANDLER)Only the most recent of10 resultswithin the time period is included. Pathologist Sig nature PTT 44.7 (H) 22.5 - 36.0 seconds [facility] Specimen Blood - Entire left upper arm (body stru cture) Performing Organization Address City/[facility]/Zipcode Phone Number [address] [address] CENTER Lactic acid, venous (01/19/2019 4:02 AM FUEL HANDLER) Pathologist Sig nature Lactate, Venous 0.8 0.5 - 2.2 mmol/L [facility] Specimen Blood - Entire right upper arm (body str ucture) Performing Organization Address [facility] Cent[facility]ode Phone Number [facility] [address] [place] [phone] CENTER Type and screen, automated (01/17/2019 5:07 AM FUEL HANDLER)Only the most recent of2 resultswithin the time period is included. Pathologist Sig nature ABO/RH AUTOMATED A NEGATIVE [facility] Ab Scrn NEGATIVE [facility] Specimen Blood Performing Organization Address [facility] Centerconh Phone Number [address] [address] Prothrombin time/INR (01/17/2019 5:07 AM FUEL HANDLER) Pathologist Sig [facility] Protime 14.7 (H) 11.9 - 14.2 seconds [facility] INR 1.2 <=5.9 [facility] Specimen Blood - Entire left upper arm (body stru cture) Narrative Performed At Effective 07/10/2018: PT Reference Range [facility] Change New: 11.9-14.2 Previous: 11.7-14.7 RECOMMENDED COUMADIN/WARFARIN INR THERAPY RANGES STANDARD DOSE: 2.0-3.0 Includes: PROPHYLAXIS for venous thrombosis, systemic embolization; TREATMENT for venous thrombosis and/or pulmonary embolus. HIGH RISK: Target INR is 2.5-3.5 for patients wiht mechanical heart valves. Within 24 hours, if on Coumadin Performing Organization Address [facility] Centercode Phone Number [facility] [address] [place] [phone] CENTER Carotid doppler bilateral (01/15/2019 3:00 PM FUEL HANDLER) Pathologist Sig nature Ejection Fraction [facility] ECHO HEARTLAB MKCK [place] CPACS Specimen Impressions Performed At Right Impression [facility] ECHO HEARTLAB MKCKESSON CPACS 1. There is <50% diameter reduction (approximately 43% by 2-D measurement) in the internal carotid artery with a peak velocity of 80/15 cm/sec and heterogeneous plaque. 2. There is non-occluding plaque in the external carotid artery. 3. There is non-occluding plaque in the common carotid artery. 4. The vertebral artery flow is antegrade and normal. Left Impression 1. There is <50% diameter reduction (approximately 46% by 2-D measurement) in the internal carotid artery with a peak velocity of 35/8 cm/sec and heterogeneous plaque. 2. There is non-occluding plaque in the external carotid artery. 3. There is non-occluding plaque in the common carotid artery. 4. The vertebral artery flow is antegrade and normal. Conclusions Summary Carotid duplex scanning and color flow imaging were performed bilaterally. The arteries were adequately visualized. The bilateral internal carotid arteries had <50% hemodynamically insignificant stenosis (approximately 43% by 2-D measurement on the right, approximately 46% by 2-D measurement on the left) with heterogeneous plaque. The vertebral artery flow was antegrade and normal bilaterally. Signature Velocities are measured in cm/s ; Diameters are measured in cm Carotid Right Measurements +---------+----+----+-----+ +--------- + + !Location !PSV !EDV !Angle!%Stenosis 2D !%Stenosis Doppler !Tortuosity ! +---------+----+----+-----+ +--------- + + !Prox CCA !72.7!15.8!60 ! ! ! ! +---------+----+----+-----+ +--------- + + !Dist CCA !58.6!22.3!60 ! ! ! ! +---------+----+----+-----+ +--------- + + !Bulb !52.8!9.97!60 ! ! ! ! +---------+----+----+-----+ +--------- + + !Prox ICA !80.3!15.8!60 !43% !<50% ! ! +---------+----+----+-----+ +--------- + + !Dist ICA !58.6!15.8!60 ! ! ! ! +---------+----+----+-----+ +--------- + + !Prox ECA !73.3!13.5!60 ! ! ! ! +---------+----+----+-----+ +--------- + + !Vertebral!39.9!14.7!60 ! ! ! ! +---------+----+----+-----+ +--------- + + - Additional Measurements:ICAPSV/CCAPSV 1.37.ICAEDV/CCAEDV 1. Carotid Left Measurements +---------+----+----+-----+ +--------- + + !Location !PSV !EDV !Angle!%Stenosis 2D !%Stenosis Doppler !Tortuosity ! +---------+----+----+-----+ +--------- + + !Prox CCA !62.7!12.9!60 ! ! ! ! +---------+----+----+-----+ +--------- + + !Dist CCA !54.5!17 !60 ! ! ! ! +---------+----+----+-----+ +--------- + + !Prox ICA !35.8!8.25!60 !46% !<50% ! ! +---------+----+----+-----+ +--------- + + !Dist ICA !38.1!7.46!60 ! ! ! ! +---------+----+----+-----+ +--------- + + !Prox ECA !35 !8.25!60 ! ! ! ! +---------+----+----+-----+ +--------- + + !Vertebral!32.6!10.2!60 ! ! ! ! +---------+----+----+-----+ +--------- + + - Additional Measurements:ICAPSV/CCAPSV 0.7.ICAEDV/CCAEDV 0.64. Narrative Performed At PV LAB - Carotid Duplex Study [facility] ECHO HEARTLAB MKCKESSON CPA Demographics Patient Name KRYSTIAN RUBIN Date of Study 01/15/2019 LIU Age 83 Visit Number [id number] Gender Male Accession Number [id number] Date of 1935 Referring Houston Miranda MD Room Number 1135 Physician Floor Runner Pedro Alcocer RVT Interpreting Romana Chandra Physician Procedure Type of Study: Cerebral: Carotid, CAROTID DOPPLER, CAM ATERAL. Indications for Study:TAVR. Patient Status:Routine. Study Location:Vascular Lab. Technical Quality:Adequate visualization . Risk Factors History of Disease + + + + !Diagnosis !Date !Comments ! + + + + !Other ! !TAVR ! + + + + Procedure Note Interface, External Ris In - 01/15/2019 4:53 PM FUEL HANDLER [facility] - Carotid Duplex Study Demographics Patient Name KRYSTIAN RUBIN Da te of Study 01/15/2019 [facility]U Ag e 83 Visit Number [id number] Ge nder Male Accession Number [id number] Da te of 1935 Referring Houston Miranda MD Ro om Number [id number] Physician Floor Runner Pedro Alcocer RVT In terpreting Romana Chandra, Ph ysician Procedure Type of Study: Cerebral: Carotid, CAROTID DOPPLER, CAM ATERAL. Indications for Study:TAVR. Patient Status:Routine. Study Location:Vascular Lab. Technical Quality:Adequate visualization . Risk Factors History of Disease + + ---------+ + !Diagnosis !Date !Comments ! + + ---------+ + !Other ! !TAVR ! + + ---------+ + Impressions Right Impression 1. There is <50% diameter reduction (pb roximately 43% by 2-D measurement) in the internal carotid artery with a pe ak velocity of 80/15 cm/sec and heterogeneous plaque. 2. There is non-occluding plaque in the external carotid artery. 3. There is non-occluding plaque in the common carotid artery. 4. The vertebral artery flow is antegrad e and normal. Left Impression 1. There is <50% diameter reduction (pb roximately 46% by 2-D measurement) in the internal carotid artery with a pe ak velocity of 35/8 cm/sec and heterogeneous plaque. 2. There is non-occluding plaque in the external carotid artery. 3. There is non-occluding plaque in the common carotid artery. 4. The vertebral artery flow is antegrad e and normal. Conclusions Summary Carotid duplex scanning and color flow imaging were performed bilaterally. The arteries were adequately visualized . The bilateral internal carotid arteries had <50% hemodynamically insig nificant stenosis (approximately 43% by 2-D measurement on the right, ap proximately 46% by 2-D measurement on the left) with heterogeneous plaque. The vertebral artery flow was antegrade and normal bilaterally. Signature Velocities are measured in cm/s ; Diamet ers are measured in cm Carotid Right Measurements +---------+----+----+-----+ + + + !Location !PSV !EDV !Angle!%Stenosis 2D !%Stenosis Doppler !Tortuosity ! +---------+----+----+-----+ + + + !Prox CCA !72.7!15.8!60 ! ! ! ! +---------+----+----+-----+ + + + !Dist CCA !58.6!22.3!60 ! ! ! ! +---------+----+----+-----+ + + + !Bulb !52.8!9.97!60 ! ! ! ! +---------+----+----+-----+ + + + !Prox ICA !80.3!15.8!60 !43% !<50% ! ! +---------+----+----+-----+ + + + !Dist ICA !58.6!15.8!60 ! ! ! ! +---------+----+----+-----+ + + + !Prox ECA !73.3!13.5!60 ! ! ! ! +---------+----+----+-----+ + + + !Vertebral!39.9!14.7!60 ! ! ! ! +---------+----+----+-----+ + + + - Additional Measurements:ICAPSV/CCAPS V 1.37.ICAEDV/CCAEDV 1. Carotid Left Measurements +---------+----+----+-----+ + + + !Location !PSV !EDV !Angle!%Stenosis 2D !%Stenosis Doppler !Tortuosity ! +---------+----+----+-----+ + + + !Prox CCA !62.7!12.9!60 ! ! ! ! +---------+----+----+-----+ + + + !Dist CCA !54.5!17 !60 ! ! ! ! +---------+----+----+-----+ + + + !Prox ICA !35.8!8.25!60 !46% !<50% ! ! +---------+----+----+-----+ + + + !Dist ICA !38.1!7.46!60 ! ! ! ! +---------+----+----+-----+ + + + !Prox ECA !35 !8.25!60 ! ! ! ! +---------+----+----+-----+ + + + !Vertebral!32.6!10.2!60 ! ! ! ! +---------+----+----+-----+ + + + - Additional Measurements:ICAPSV/CCAPS V 0.7.ICAEDV/CCAEDV 0.64. Performing Organization Address City/State/Zipcode Phone Number [facility] [employer] [facility] Arterial doppler legs bilateral (01/15/2019 1:50 PM FUEL HANDLER) [facility] nature Ejection Fraction [facility] Specimen Impressions Performed At Right Impression [facility] [employer] [facility] 1. The common femoral, profunda femoral, superficial femoral, popliteal, posterior tibial and peroneal arteries are patent with calcified plaque and biphasic doppler waveforms throughout. 2. The proximal anterior tibial artery is patent with a monophasic doppler waveform. 3. The mid-distal posterior tibial artery was not visualized. 4. The PT pressure is 165 mmHg with an ZENOBIA of 1.42 (within the noncompressible range) and the DP pressure is 124 mmHg with an ZENOBIA of 1.07, (within normal range). 5. There is decreed flow to the digits by PPG waveforms. 6. The TBI was not obtained due to decrease flow by PPG waveforms. Left Impression 1. The common femoral, profunda femoral, superficial femoral, popliteal, posterior tibial and peroneal arteries are patent with with calcified plaque and biphasic doppler waveforms throughou t. 2. The anterior tibial artery is patent with calcified plaque and monophasic doppler waveforms throughout. 3. There is decreed flow to the digits by PPG waveforms. 4. The TBI was not obtained due to decrease flow by PPG waveforms. Conclusions Summary Arterial pressures and Doppler analysis were performed bilaterally. The arteries were adequately visualized except as stated above. On the right, the common femoral, profunda femoral, superficial femoral, popliteal, posterior tibial and peroneal arteries were patent with calcified plaque and biphasic doppler waveforms throughout. The proximal anterior tibial artery is patent with a monophasic doppler waveform. The mid-distal posterior tibial artery was not visualized. The PT pressure was 165 mmHg with an ZENOBIA of 1.42 (within the noncompressible range) and the DP pressure is 124 mmHg with an ZENOBIA of 1.07, (within normal range). There was decreed flow to the digits by PPG waveforms. The TBI was not obtained due to decrease flow by PPG waveforms. On the left, the common femoral, profunda femoral, superficial femoral, popliteal, posterior tibial and peroneal arteries are patent with with calcified plaque and biphasic doppler waveforms throughout. The anterior tibial artery was patent with calcified plaque and monophasic doppler waveforms throughout. There was decreed flow to the digits by PPG waveforms. The TBI was not obtained due to decrease flow by PPG waveforms. Signature Velocities are measured in cm/s ; Diameters are measured in cm LE Duplex Measurements Right Left + + + + + + + + + + !Location ! !PSV !EDV !Waveform ! !PSV !EDV !Waveform ! + + + + + + + + + + !Mid Common Femoral ! !78.6 ! !Biphasic ! !86.4 !8.64 !Biphasic ! + + + + + + + + + + !Prox PFA ! !47.1 ! !Biphasic ! !36.1 ! !Biphasic ! + + + + + + + + + + !Prox SFA ! !38.1 !1.57 !Biphasic ! !42.4 !8.25 !Biphasic ! + + + + + + + + + + !Mid SFA ! !32.6 !5.89 !Biphasic ! !59.3 ! !Biphasic ! + + + + + + + + + + !Dist SFA ! !72.7 ! !Biphasic ! !80.1 !7.07 !Biphasic ! + + + + + + + + + + !Prox Popliteal ! !24 ! !Biphasic ! !41.3 !8.25 !Biphasic ! + + + + + + + + + + !Dist Popliteal ! !34.2 ! !Biphasic ! !51.5 ! !Biphasic ! + + + + + + + + + + !Prox DAY SPA MANAGER ! !70.7 ! !Biphasic ! !38.9 !6.68 !Biphasic ! + + + + + + + + + + !Mid DAY SPA MANAGER ! !49.1 ! !Biphasic ! !53.8 !4.32 !Biphasic ! + + + + + + + + + + !Dist DAY SPA MANAGER ! !46 ! !Biphasic ! !29.9 ! !Biphasic ! + + + + + + + + + + !Prox VEGA ! !29 ! !Monophasic ! !33.4 ! !Monophasic ! + + + + + + + + + + !Dist VEGA ! + + Narrative Performed At LAB - Lower Extremity Arterial Duplex [facility] ECHO HEARTLAB MKCKESSON [facility] Demographics Patient Name KRYSTIAN RUBIN Date of Study 01/15/2019 LIU Age 83 Visit Number [id number] Gender Male Accession Number [id number] Date of 1935 Referring Houston Miranda MD Room Number 1135 Physician Floor Runner Pedro Alcocer T Interpreting Physician EVARISTO Yan Procedure Type of Study: Extremities Arteries: Lower Extremities Arterial Duplex, ARTERIAL DOPPLER LEGS, BILATERAL. Indications for Study:TAVR workup . Patient Status:Routine. Study Location:Vascular Lab. Technical Quality:Adequate visualization . Risk Factors History of Disease + + + + !Diagnosis !Date !Comments ! + + + + !Other ! !TAVR ! + + + + Procedure Note Interface, External Ris In - 01/15/2019 4:53 PM FUEL HANDLER [facility] - Lower Extremity Arterial Duplex Demographics Patient Name KRYSTIAN RUBIN te of Study 01/15/2019 LIU Ag e 83 Visit Number [id number] Ge nder Male Accession Number [id number] Da te of 1935 Referring Houston Miranda MD om Number [id number] Physician Floor Runner Pedro Alcocer RVT In terpreting Romana Chandra, Ph ysician Procedure Type of Study: Extremities Arteries: Lower Extremities Arterial Duplex, ARTERIAL DOPPLER LEGS, BILATERAL. Indications for Study:TAVR workup . Patient Status:Routine. Study Location:Vascular Lab. Technical Quality:Adequate visualization . Risk Factors History of Disease + + ---------+ + !Diagnosis !Date !Comments ! + + ---------+ + !Other ! !TAVR ! + + ---------+ + Impressions Right Impression 1. The common femoral, profunda femoral, superficial femoral, popliteal, posterior tibial and peroneal arteries a re patent with calcified plaque and biphasic doppler waveforms throughout. 2. The proximal anterior tibial artery i s patent with a monophasic doppler waveform. 3. The mid-distal posterior tibial arter y was not visualized. 4. The PT pressure is 165 mmHg with an A BI of 1.42 (within the noncompressible range) and the DP pressu re is 124 mmHg with an ZENOBIA of 1.07, (within normal range). 5. There is decreed flow to the digits b y PPG waveforms. 6. The TBI was not obtained due to decre ase flow by PPG waveforms. Left Impression 1. The common femoral, profunda femoral, superficial femoral, popliteal, posterior tibial and peroneal arteries a re patent with with calcified plaque and biphasic doppler waveforms throughou t. 2. The anterior tibial artery is patent with calcified plaque and monophasic doppler waveforms throughout. 3. There is decreed flow to the digits b y PPG waveforms. 4. The TBI was not obtained due to decre ase flow by PPG waveforms. Conclusions Summary Arterial pressures and Doppler analysis were performed bilaterally. The arteries were adequately visualized exc ept as stated above. On the right, the common femoral, profunda femoral, s uperficial femoral, popliteal, posterior tibial and peroneal arteries were patent with calcified plaque and biphasic doppler waveforms througho ut. The proximal anterior tibial artery is patent with a monophasic dopp ler waveform. The mid-distal posterior tibial artery was not visuali zed. The PT pressure was 165 mmHg with an ZENOBIA of 1.42 (within the noncomp ressible range) and the DP pressure is 124 mmHg with an ZENOBIA of 1.07, (withi n normal range). There was decreed flow to the digits by PPG waveforms. Th e TBI was not obtained due to decrease flow by PPG waveforms. On the left, the common femoral, profunda femoral, superficial femoral, popliteal , posterior tibial and peroneal arteries are patent with with calcified plaque and biphasic doppler waveforms throughout. The anterior tibi al artery was patent with calcified plaque and monophasic doppler waveforms throughout. There was decreed flow to the digits by PPG waveforms. The TBI was not obtained due to decrease flow by PPG waveforms. Signature Velocities are measured in cm/s ; Diamet ers are measured in cm LE Duplex Measurements Right Left + + + + + + + + + + !Location ! !PSV !EDV !Waveform ! !PSV !EDV !Waveform ! + + + + + + + + + + !Mid Common Femoral ! !78.6 ! !Biphasic ! !86.4 !8.64 !Biphasic ! + + + + + + + + + + !Prox PFA ! !47.1 ! !Biphasic ! !36.1 ! !Biphasic ! + + + + + + + + + + !Prox SFA ! !38.1 !1.57 !Biphasic ! !42.4 !8.25 !Biphasic ! + + + + + + + + + + !Mid SFA ! !32.6 !5.89 !Biphasic ! !59.3 ! !Biphasic ! + + + + + + + + + + !Dist SFA ! !72.7 ! !Biphasic ! !80.1 !7.07 !Biphasic ! + + + + + + + + + + !Prox Popliteal ! !24 ! !Biphasic ! !41.3 !8.25 !Biphasic ! + + + + + + + + + + !Dist Popliteal ! !34.2 ! !Biphasic ! !51.5 ! !Biphasic ! + + + + + + + + + + !Prox DAY SPA MANAGER ! !70.7 ! !Biphasic ! !38.9 !6.68 !Biphasic ! + + + + + + + + + + !Mid DAY SPA MANAGER ! !49.1 ! !Biphasic ! !53.8 !4.32 !Biphasic ! + + + + + + + + + + !Dist DAY SPA MANAGER ! !46 ! !Biphasic ! !29.9 ! !Biphasic ! + + + + + + + + + + !Prox VEGA ! !29 ! !Monophasic ! !33.4 ! !Monophasic ! + + + + + + + + + + !Dist VEGA ! + + Performing Organization Address City/[facility]/Zipcode Phone Number [facility] CPACS Hemoglobin A1c (01/15/2019 2:13 AM FUEL HANDLER)Only the most recent of2 resultswithin the time period is included. Pathologist [facility] Hemoglobin A1C 8.3 (H) 4.3 - 6.1 % [facility] Specimen Blood Performing Organization Address [facility] Phone Number [place] [phone] [place] [address] [place] ECHOCARDIOGRAM REPORT - SCAN (01/14/2019 9:20 PM FUEL HANDLER) Narrative Performed At This result has an attachment that is no t available. Occult blood, stool (01/14/2019 7:39 PM FUEL HANDLER) Pathologist [facility] Occult blood Positive (A) Negative [facility] Specimen Stool - Rectum structure (body structure ) Performing Organization Address [facility] Phone Number [address] [address] [place] CTA chest (01/14/2019 4:46 PM FUEL HANDLER) Specimen Narrative Performed At Addendum Begins GE RIS REPORT STATUS:A Addendum: I agree with the previously described no n vascular findings by Dr. Yu. Signed: Elmer Sotelo MD Report Verified Date/Time: 01/15/2019 14:11:09 Reading Location: [place] [address] Angio Body Reading Room Addendum Ends FINAL REPORT CT angiography of the thoracoabdominal a beny and pelvic arteries, 14 January 2019 INDICATION: This is a 83 year old male w ith aortic stenosis, presents for preprocedure TAVR assessment. TECHNIQUE: Spiral acquisition before and during intravenous contrast administration using a Siemens multidete ctor CT scanner. Images were obtained before and during the dynamic p assage of intravenous contrast material. Multi-planar 3-D vo lume-rendering reconstruction was performed using an independent works tation interactively by the interpreting physician as well as the 3- D specialist for optimal visualisation of the thoracoabdominal ao rta, the pelvic arteries as well as its proximal branches. Please refer to the contrast sheet scann ed in the Asetek system for the amount and route of contrast given. This exam was performed according to our departmental dose-optimisation programme, which inclu severiano automated exposure control, adjustment of the mA and/or kV according to patient size and/or use of iterative reconstruction t echnique. Dose modulation, iterative reconstruction, and/or weight based adjustment of the mA/kV was utilized to reduce the radiation dos e to as low as reasonably achievable. FINDINGS: VASCULAR: The pericardium appears unremarkable. No pericardial effusion is identified. The central pulmonary artery is normal i n calibre. Assessment is limited. The cardiac chambers demonstrate normal atrioventricular and ventriculoarterial concordance, and syst emic and pulmonary venous return. The left ventricle is normal in size. Le ft atrial enlargement is identified. Mild calcification is identi fied and the tip of the anterior mitral valve leaflet. The coronary artery origins are normal a nd diffuse coronary artery calcification versus stent is identified in the LAD territory. There could be scattered calcific and LCx and RCA territories. coronary calcifications are seen. Patient has a diagnosis of aortic stenos is. The aortic valve is tricuspid. The aortic Agatston score is 5712. The aortic valve area is 64 mm2. The location of aortic valv ular calcification can be seen in reformatted data set sent to PACS. Regarding the aorta, there is minimal Co nsultation seen in the aortic root and ascending thoracic aorta is sidney e of calcification. The transverse arch and descending thoracic aorta has mild scattered calcification identified. The abdominal aorta has mild calcific and noncalcific atherosclerosis present. No aneurysmal dilation is identified. The mid ascending thoracic a beny measure approximately 3.7 cm in diameter. There is no evidence of acute aortic pat hology, specifically, there is no dissection, intramural hematoma, o r contained rupture. The arch vessel branching pattern is nor mal and the visualized arch vessels are widely patent proximally. Th e left subclavian artery has mild calcification identified proximally . At image 20, it measures 7 to 8 mm in diameter. The right subclavia n artery has mild calcific and noncalcific atherosclerosis seen pro ximally. The minimum diameter proximally, is approximately 7.4 x 5.8 m m in diameter at image 83. There are single left and right renal ar teries that are widely patent; nonobstructive calcification is seen at the takeoff of the right renal arteries. The coeliac axis, SMA, and ZAFAR are widely patent. Diffuse calcification is seen along the pathway splenic artery. The common iliac, external iliac, common femoral, and the visualized superficial femoral arteries, bilaterall y, are widely patent with no obstructive lesion identified. Scattered calcification is identified with no obstructive lesion seen. See dim ensions below for details. Dimensions that may be helpful for TAVR as follows: Mild calcification is seen in the aortic root and ascending thoracic aorta is free of calcification. The major and minor aortic annulus diame ter measures 30.5 and 22.6 mm, respectively. The aortic annulus per imeter measured 83 mm and the cross-sectional area measures 528 mm2. T he aortic annulus diameter at the traditional LVOT and coronal LVOT me asures 23.7 and 27.8 mm, respectively. For reference purpose, per COLLAZO S3 br ochure, recommendation are as follows: CT area between 273 to 345 mm2 (20 mm valve); 338 to 430 mm2 (23 mm valve); 430 to 546 mm2 (26 mm gia ve); 540 to 683 mm2 (29 mm valve). For reference purpose, per [employer] Talon alana zheng, recommendation are as follows: CT perime ter between 56.5-62.8 mm (23 mm valve); 62.8-72.3 mm (26 mm valve); 7 2.3-81.7 mm (29 mm valve); and 81.7-94.2. mm (34 mm valve). For reference purpose, per Molly chandler, recommendation are as follows: 23mm valve is recommended for C T perimeter between 62.8-72.3 mm; diameter between 20-23 mm; or area b etween 314-415.5 mm2. For 25mm valve, it is recommended for CT per imeter between 72.3-78.5 mm; diameter between 23-25 mm; or area betwe en 415.5-490.9 mm2. For 27mm valve, it is recommended for CT perimete r between 78.5-84.8 mm; diameter between 25-27 mm; or area betwe en 490.9-572.6 mm2. Agatston Score is 5712. The aortic valve area is 64 mm2. The distance between the take off of the RCA and the annulus (systole): 14.2 mm The distance between the take off of the LM and the annulus (systole): 14.0 mm The sinus of Valsalva diameter, RCC (sys tole): 35.3 mm The sinus of Valsalva diameter, LCC (sys tole): 38.7 mm The sinus of Valsalva diameter, NCC (sys tole): 38.8 mm The sinotubular junction measures, 32.6 x 32.9 mm. The aortic root angulation measures 41.7 degrees. The minimal and perpendicular abdominal aortic diameter measures 18.2 x 17.3 mm, respectively. There is no evidence of thoracoabdominal aortic aneurysm or stent placement present. There is mild ectasia seen in the mid ascending thoracic aorta that measure 4.2 x 4.1 cm in diameter. The minimum and the perpendicular left c ommon iliac artery measures 9.5 and 9.7 mm, respectively with mild tortuosity and mild calcific atherosclerosis present. The minimum and the perpendicular left external iliac artery measures 9 and 10 mm, respectively with [id number] tortuosity and minima l calcific atherosclerosis present. The minimum and the perpendicul ar left femoral artery measures 7.0 and 9.2 mm, respectively wi th mild tortuosity and mild calcific atherosclerosis present. The minimum and the perpendicular right common iliac artery measures 7.0 and 10.1 mm, respectively with mild tortuosity and mild to moderate calcific atherosclerosis pres ent; localised atherosclerotic ulceration is identified, at image 249. The minimum and the perpendicular right external iliac art alex measures 9.3 and 10.7 mm, respectively with unremarkable tortuos ity and minimal calcific atherosclerosis present. The minimum and the perpendicular right femoral artery measures 7.7 and 8.3 mm, respectively with minimal tortuosity and no calcific atheroscler osis present. NON-VASCULAR: The visualised thyroid gland is unremark able. The chest wall and mediastinum appear no rmal. No significant adenopathy is seen. In the lung windows, no endobronchial le celine is identified. Mild to moderate bibasal pleural effusions ident ified, with associated atelectatic changes present. Pulmonary v asculature is prominent suggesting underlying cardiac congestion . Correlate with clinical examination. Calcified pleural plaque is seen, in the left, at image 216. Calcified nodule is seen, in the le ft lung, at image 560 representing underlying granulomatous di sease. In the right apex, scar nodule is identi fied at image 33. An addendum dictated thereafter, if needed. Small no dule is identified in the anterior aspect of the right middle lobe , measure 4 mm, at image 456. In addition, nodular opacity is seen, me asure 6 mm, at image 458, along the fissure of the right lung. No prior examination is available for comparison. In the abdomen, the liver and spleen pb ears unremarkable no acute pathology is identified. No abnormal enh ancing structure is seen. In the AP orientation, the spleen is promin ent measure approximately 15 cm. Clinical significance of this findin g is uncertain. The pancreas appears unremarkable. No ob vious gallstone is identified, though there could be focal calcification identified in the gallbladder wall, at image 121 of th e precontrast series. No acute renal pathology is seen and no hyd ronephrosis or perirenal fluid collection is identified. The left adrenal gland is unremarkable. The right adrenal gland could be mildly prominent/nodular. Bowel is not well assessed by CT angiogr aphy as enteric contrast is not given. No obvious bowel dilation is identified. Scattered colonic diverticulum is seen with no inflammator y changes present. Small bilateral fat-containing inguinal hernia is identified. The prostate is prominent. The bladder a ppears grossly unremarkable. Superficial wound is identified in the r ight groin suggesting prior catheterisation and associated inflammat ory changes are seen in the right groin with no haematoma or extrava sation of contrast identified. No free air free flow seen abdomen pelvi s and no significant retroperitoneal adenopathy is identified . In the bony windows, no acute bony patho logy is seen. Some degenerative changes is noted. CONCLUSIONS: 1. Patient has a diagnosis of aortic stenosis. The aortic valve is tricuspid. The aortic Agatston Score i s over 5700 and aortic valve area is 64 mm2. No mitral annular calcif ication is seen and tiny focal calcification seen along the anter ior leaflet of the mitral valve. Minimal calcification is identified the level of the aortic root. Dimensions that may be helpful for TAVR as described above. 2. Coronary artery origins are normal. Calcification versus stent is present in the LAD territory. 3. Mild to moderate bibasal pleural ef fusion. The central pulmonary artery is at the upper limits of normal in size. Pulmonary vasculature is prominent sugge sting underlying cardiac congestion. Evidence of prior granulomat ous disease, and noncalcified nodules are seen that represent a spectr um of underlying granulomatous disease. Nodular noncalcif ied nodule is 6 mm along the fissure of the right lung. No prior examination is available for co mparison. Professional recommendation as follows: Nodule Size 6-8 mm Low-Risk Patient: C T at 3-[address] at 18-24 months Nodule Size 6-8 mm High-Risk Patient: CT at 3-6 months then at 18-24 months 4. Other findings as described above. 5. An addendum will be dictated regard ing the non-vascular findings by the Biometrics Head Radiologist. Signed: Sudarshan Yu MD Report Verified Date/Time: 01/14/2019 18:44:15 Procedure Note Interface, External Ris In - 01/15/2019 2:13 PM FUEL HANDLER Addendum Begins REPORT STATUS:A Addendum: I agree with the previously described no n vascular findings by Dr. Yu. Signed: Elmre Sotelo MD Report Verified Date/Time: 01/15/2019 1 4:11:09 Reading Location: [place] [address] Angio Body Reading Room Addendum Ends FINAL REPORT CT angiography of the thoracoabdominal a beny and pelvic arteries, 14 January 2019 INDICATION: This is a 83 year old male w ith aortic stenosis, presents for preprocedure TAVR assessment. TECHNIQUE: Spiral acquisition before and during intravenous contrast administration using a Siemens multidete ctor CT scanner. Images were obtained before and during the dynamic p assage of intravenous contrast material. Multi-planar 3-D vol ume-rendering reconstruction was performed using an independent works tation interactively by the interpreting physician as well as the 3- D specialist for optimal visualisation of the thoracoabdominal ao rta, the pelvic arteries as well as its proximal branches. Please refer to the contrast sheet scann ed in the Asetek system for the amount and route of contrast given. This exam was performed according to our departmental dose-optimisation programme, which inclu severiano automated exposure control, adjustment of the mA and/or kV according to patient size and/or use of iterative reconstruction t echnique. Dose modulation, iterative reconstruction, and/or weight based adjustment of the mA/kV was utilized to reduce the radiation dos e to as low as reasonably achievable. FINDINGS: VASCULAR: The pericardium appears unremarkable. No pericardial effusion is identified. The central pulmonary artery is normal i n calibre. Assessment is limited. The cardiac chambers demonstrate normal atrioventricular and ventriculoarterial concordance, and syst emic and pulmonary venous return. The left ventricle is normal in size. Le ft atrial enlargement is identified. Mild calcification is identi fied and the tip of the anterior mitral valve leaflet. The coronary artery origins are normal a nd diffuse coronary artery calcification versus stent is identified in the LAD territory. There could be scattered calcific and LCx and RCA territories. coronary calcifications are seen. Patient has a diagnosis of aortic stenos is. The aortic valve is tricuspid. The aortic Agatston score is 5712. The aortic valve area is 64 mm2. The location of aortic valvu lar calcification can be seen in reformatted data set sent to PACS. Regarding the aorta, there is minimal Co nsultation seen in the aortic root and ascending thoracic aorta is sidney e of calcification. The transverse arch and descending thoracic aorta has mild scattered calcification identified. The abdominal aorta has mild calcific and noncalcific atherosclerosis present. No aneurysmal dilation is identified. The mid ascending thoracic a beny measure approximately 3.7 cm in diameter. There is no evidence of acute aortic pat hology, specifically, there is no dissection, intramural hematoma, o r contained rupture. The arch vessel branching pattern is nor mal and the visualized arch vessels are widely patent proximally. Th e left subclavian artery has mild calcification identified proximally . At image 20, it measures 7 to 8 mm in diameter. The right subclavia n artery has mild calcific and noncalcific atherosclerosis seen pro ximally. The minimum diameter proximally, is approximately 7.4 x 5.8 m m in diameter at image 83. There are single left and right renal ar teries that are widely patent; nonobstructive calcification is seen at the takeoff of the right renal arteries. The coeliac axis, SMA, and ZAFAR are widely patent. Diffuse calcification is seen a long the pathway splenic artery. The common iliac, external iliac, common femoral, and the visualized superficial femoral arteries, bilaterall y, are widely patent with no obstructive lesion identified. Scattered calcification is identified with no obstructive lesion seen. See dim ensions below for details. Dimensions that may be helpful for TAVR as follows: Mild calcification is seen in the aortic root and ascending thoracic aorta is free of calcification. The major and minor aortic annulus diame ter measures 30.5 and 22.6 mm, respectively. The aortic annulus per imeter measured 83 mm and the cross-sectional area measures 528 mm2. T he aortic annulus diameter at the traditional LVOT and coronal LVOT me asures 23.7 and 27.8 mm, respectively. For reference purpose, per COLLAZO S3 br ochure, recommendation are as follows: CT area between 273 to 345 mm2 (20 mm valve); 338 to 430 mm2 (23 mm valve); 430 to 546 mm2 (26 mm gia ve); 540 to 683 mm2 (29 mm valve). For reference purpose, per [employer] Talon lut R brochure, recommendation are as follows: CT perime ter between 56.5-62.8 mm (23 mm valve); 62.8-72.3 mm (26 mm valve); 7 2.3-81.7 mm (29 mm valve); and 81.7-94.2. mm (34 mm valve). For reference purpose, per Molly Edge br ramesh, recommendation are as follows: 23mm valve is recommended for C T perimeter between 62.8-72.3 mm; diameter between 20-23 mm; or area b etween 314-415.5 mm2. For 25mm valve, it is recommended for CT per imeter between 72.3-78.5 mm; diameter between 23-25 mm; or area betwe en 415.5-490.9 mm2. For 27mm valve, it is recommended for CT perimete r between 78.5-84.8 mm; diameter between 25-27 mm; or area betwe en 490.9-572.6 mm2. Agatston Score is 5712. The aortic valve area is 64 mm2. The distance between the take off of the RCA and the annulus (systole): 14.2 mm The distance between the take off of the LM and the annulus (systole): 14.0 mm The sinus of Valsalva diameter, RCC (sys tole): 35.3 mm The sinus of Valsalva diameter, LCC (sys tole): 38.7 mm The sinus of Valsalva diameter, NCC (sys tole): 38.8 mm The sinotubular junction measures, 32.6 x 32.9 mm. The aortic root angulation measures 41.7 degrees. The minimal and perpendicular abdominal aortic diameter measures 18.2 x 17.3 mm, respectively. There is no evidence of thoracoabdominal aortic aneurysm or stent placement present. There is mild ectasia seen in the mid ascending thoracic aorta that measure 4.2 x 4.1 cm in diameter. The minimum and the perpendicular left c ommon iliac artery measures 9.5 and 9.7 mm, respectively with mild tortuosity and mild calcific atherosclerosis present. The minimum and the perpendicular left external iliac artery measures 9 and 10 mm, respectively with [id number] tortuosity and minimal calcific atherosclerosis present. The minimum and the perpendicul ar left femoral artery measures 7.0 and 9.2 mm, respectively wi th mild tortuosity and mild calcific atherosclerosis present. The minimum and the perpendicular right common iliac artery measures 7.0 and 10.1 mm, respectively with mild tortuosity and mild to moderate calcific atherosclerosis prese nt; localised atherosclerotic ulceration is identified, at image 249. The minimum and the perpendicular right external iliac radha ry measures 9.3 and 10.7 mm, respectively with unremarkable tortuosi ty and minimal calcific atherosclerosis present. The minimum and the perpendicular right femoral artery measures 7.7 and 8.3 mm, respectively with minimal tortuosity and no calcific atherosclero sis present. NON-VASCULAR: The visualised thyroid gland is unremark able. The chest wall and mediastinum appear no rmal. No significant adenopathy is seen. In the lung windows, no endobronchial le celine is identified. Mild to moderate bibasal pleural effusions ident ified, with associated atelectatic changes present. Pulmonary v asculature is prominent suggesting underlying cardiac congestion . Correlate with clinical examination. Calcified pleural plaque is seen, in the left, at image 216. Calcified nodule is seen, in the le ft lung, at image 560 representing underlying granulomatous di sease. In the right apex, scar nodule is identi fied at image 33. An addendum dictated thereafter, if needed. Small no dule is identified in the anterior aspect of the right middle lobe , measure 4 mm, at image 456. In addition, nodular opacity is seen, me asure 6 mm, at image 458, along the fissure of the right lung. No prior examination is available for comparison. In the abdomen, the liver and spleen pb ears unremarkable no acute pathology is identified. No abnormal enh ancing structure is seen. In the AP orientation, the spleen is promin ent measure approximately 15 cm. Clinical significance of this findin g is uncertain. The pancreas appears unremarkable. No ob vious gallstone is identified, though there could be focal calcification identified in the gallbladder wall, at image 121 of th e precontrast series. No acute renal pathology is seen and no hyd ronephrosis or perirenal fluid collection is identified. The left adrenal gland is unremarkable. The right adrenal gland could be mildly prominent/nodular. Bowel is not well assessed by CT angiogr aphy as enteric contrast is not given. No obvious bowel dilation is identified. Scattered colonic diverticulum is seen with no inflammator y changes present. Small bilateral fat-containing inguinal hernia is identified. The prostate is prominent. The bladder a ppears grossly unremarkable. Superficial wound is identified in the r ight groin suggesting prior catheterisation and associated inflammat ory changes are seen in the right groin with no haematoma or extrava sation of contrast identified. No free air free flow seen abdomen pelvi s and no significant retroperitoneal adenopathy is identified . In the bony windows, no acute bony patho logy is seen. Some degenerative changes is noted. CONCLUSIONS: 1. Patient has a diagnosis of aortic s tenosis. The aortic valve is tricuspid. The aortic Agatston Score is over 5700 and aortic valve area is 64 mm2. No mitral annular calcif ication is seen and tiny focal calcification seen along the anter ior leaflet of the mitral valve. Minimal calcification is identified the level of the aortic root. Dimensions that may be helpful for TAVR as described above. 2. Coronary artery origins are normal. Calcification versus stent is present in the LAD territory. 3. Mild to moderate bibasal pleural eff usion. The central pulmonary artery is at the upper limits of normal in size. Pulmonary vasculature is prominent sugge sting underlying cardiac congestion. Evidence of prior granulomat ous disease, and noncalcified nodules are seen that represent a spectr um of underlying granulomatous disease. Nodular noncalcif ied nodule is 6 mm along the fissure of the right lung. No prior examination is available for co mparison. Professional recommendation as follows: Nodule Size 6-8 mm Low-Risk Patient: CT at 3-[address] at 18-24 months Nodule Size 6-8 mm High-Risk Patient: C T at 3-6 months then at 18-24 months 4. Other findings as described above. 5. An addendum will be dictated regardi ng the non-vascular findings by the Biometrics Head Radiologist. Signed: Sudarshan Yu MD Report Verified Date/Time: 01/14/2019 1 8:44:15 Performing Organization Address City/State/Zipcode Phone Number [facility] CTA abdomen & pelvis (01/14/2019 4:46 PM FUEL HANDLER) Specimen Narrative Performed At Addendum Begins [facility] RIS REPORT STATUS:A Addendum: I agree with the previously described no n vascular findings by Dr. Yu. Signed: Elmer Sotelo MD Report Verified Date/Time: 01/15/2019 14:11:09 Reading Location: [place] [address] Angio Body Reading Room Addendum Ends FINAL REPORT CT angiography of the thoracoabdominal a beny and pelvic arteries, 14 January 2019 INDICATION: This is a 83 year old male w ith aortic stenosis, presents for preprocedure TAVR assessment. TECHNIQUE: Spiral acquisition before and during intravenous contrast administration using a Siemens multidete ctor CT scanner. Images were obtained before and during the dynamic p assage of intravenous contrast material. Multi-planar 3-D vo lume-rendering reconstruction was performed using an independent works tation interactively by the interpreting physician as well as the 3- D specialist for optimal visualisation of the thoracoabdominal ao rta, the pelvic arteries as well as its proximal branches. Please refer to the contrast sheet scann ed in the EPIC system for the amount and route of contrast given. This exam was performed according to our departmental dose-optimisation programme, which inclu severiano automated exposure control, adjustment of the mA and/or kV according to patient size and/or use of iterative reconstruction t echnique. Dose modulation, iterative reconstruction, and/or weight based adjustment of the mA/kV was utilized to reduce the radiation dos e to as low as reasonably achievable. FINDINGS: VASCULAR: The pericardium appears unremarkable. No pericardial effusion is identified. The central pulmonary artery is normal i n calibre. Assessment is limited. The cardiac chambers demonstrate normal atrioventricular and ventriculoarterial concordance, and syst emic and pulmonary venous return. The left ventricle is normal in size. Le ft atrial enlargement is identified. Mild calcification is identi fied and the tip of the anterior mitral valve leaflet. The coronary artery origins are normal a nd diffuse coronary artery calcification versus stent is identified in the LAD territory. There could be scattered calcific and LCx and RCA territories. coronary calcifications are seen. Patient has a diagnosis of aortic stenos is. The aortic valve is tricuspid. The aortic Agatston score is 5712. The aortic valve area is 64 mm2. The location of aortic valv ular calcification can be seen in reformatted data set sent to PACS. Regarding the aorta, there is minimal Co nsultation seen in the aortic root and ascending thoracic aorta is sidney e of calcification. The transverse arch and descending thoracic aorta has mild scattered calcification identified. The abdominal aorta has mild calcific and noncalcific atherosclerosis present. No aneurysmal dilation is identified. The mid ascending thoracic a beny measure approximately 3.7 cm in diameter. There is no evidence of acute aortic pat hology, specifically, there is no dissection, intramural hematoma, o r contained rupture. The arch vessel branching pattern is nor mal and the visualized arch vessels are widely patent proximally. Th e left subclavian artery has mild calcification identified proximally . At image 20, it measures 7 to 8 mm in diameter. The right subclavia n artery has mild calcific and noncalcific atherosclerosis seen pro ximally. The minimum diameter proximally, is approximately 7.4 x 5.8 m m in diameter at image 83. There are single left and right renal ar teries that are widely patent; nonobstructive calcification is seen at the takeoff of the right renal arteries. The coeliac axis, SMA, and ZAFAR are widely patent. Diffuse calcification is seen along the pathway splenic artery. The common iliac, external iliac, common femoral, and the visualized superficial femoral arteries, bilaterall y, are widely patent with no obstructive lesion identified. Scattered calcification is identified with no obstructive lesion seen. See dim ensions below for details. Dimensions that may be helpful for TAVR as follows: Mild calcification is seen in the aortic root and ascending thoracic aorta is free of calcification. The major and minor aortic annulus diame ter measures 30.5 and 22.6 mm, respectively. The aortic annulus per imeter measured 83 mm and the cross-sectional area measures 528 mm2. T he aortic annulus diameter at the traditional LVOT and coronal LVOT me asures 23.7 and 27.8 mm, respectively. For reference purpose, per COLL[employer] S3 morgan chandler, recommendation are as follows: CT area between 273 to 345 mm2 (20 mm valve); 338 to 430 mm2 (23 mm valve); 430 to 546 mm2 (26 mm gia ve); 540 to 683 mm2 (29 mm valve). For reference purpose, per [employer] Talon kellyt R marce, recommendation are as follows: CT perime ter between 56.5-62.8 mm (23 mm valve); 62.8-72.3 mm (26 mm valve); 7 2.3-81.7 mm (29 mm valve); and 81.7-94.2. mm (34 mm valve). For reference purpose, per Molly Alfredo chandler, recommendation are as follows: 23mm valve is recommended for C T perimeter between 62.8-72.3 mm; diameter between 20-23 mm; or area b etween 314-415.5 mm2. For 25mm valve, it is recommended for CT per imeter between 72.3-78.5 mm; diameter between 23-25 mm; or area betwe en 415.5-490.9 mm2. For 27mm valve, it is recommended for CT perimete r between 78.5-84.8 mm; diameter between 25-27 mm; or area betwe en 490.9-572.6 mm2. Agatston Score is 5712. The aortic valve area is 64 mm2. The distance between the take off of the RCA and the annulus (systole): 14.2 mm The distance between the take off of the LM and the annulus (systole): 14.0 mm The sinus of Valsalva diameter, RCC (sys tole): 35.3 mm The sinus of Valsalva diameter, LCC (sys tole): 38.7 mm The sinus of Valsalva diameter, NCC (sys tole): 38.8 mm The sinotubular junction measures, 32.6 x 32.9 mm. The aortic root angulation measures 41.7 degrees. The minimal and perpendicular abdominal aortic diameter measures 18.2 x 17.3 mm, respectively. There is no evidence of thoracoabdominal aortic aneurysm or stent placement present. There is mild ectasia seen in the mid ascending thoracic aorta that measure 4.2 x 4.1 cm in diameter. The minimum and the perpendicular left c ommon iliac artery measures 9.5 and 9.7 mm, respectively with mild tortuosity and mild calcific atherosclerosis present. The minimum and the perpendicular left external iliac artery measures 9 and 10 mm, respectively with eaae-ky-pzutypon tortuosity and minima l calcific atherosclerosis present. The minimum and the perpendicul ar left femoral artery measures 7.0 and 9.2 mm, respectively wi th mild tortuosity and mild calcific atherosclerosis present. The minimum and the perpendicular right common iliac artery measures 7.0 and 10.1 mm, respectively with mild tortuosity and mild to moderate calcific atherosclerosis pres ent; localised atherosclerotic ulceration is identified, at image 249. The minimum and the perpendicular right external iliac art alex measures 9.3 and 10.7 mm, respectively with unremarkable tortuos ity and minimal calcific atherosclerosis present. The minimum and the perpendicular right femoral artery measures 7.7 and 8.3 mm, respectively with minimal tortuosity and no calcific atheroscler osis present. NON-VASCULAR: The visualised thyroid gland is unremark able. The chest wall and mediastinum appear no rmal. No significant adenopathy is seen. In the lung windows, no endobronchial le celine is identified. Mild to moderate bibasal pleural effusions ident ified, with associated atelectatic changes present. Pulmonary v asculature is prominent suggesting underlying cardiac congestion . Correlate with clinical examination. Calcified pleural plaque is seen, in the left, at image 216. Calcified nodule is seen, in the le ft lung, at image 560 representing underlying granulomatous di sease. In the right apex, scar nodule is identi fied at image 33. An addendum dictated thereafter, if needed. Small no dule is identified in the anterior aspect of the right middle lobe , measure 4 mm, at image 456. In addition, nodular opacity is seen, me asure 6 mm, at image 458, along the fissure of the right lung. No prior examination is available for comparison. In the abdomen, the liver and spleen pb ears unremarkable no acute pathology is identified. No abnormal enh ancing structure is seen. In the AP orientation, the spleen is promin ent measure approximately 15 cm. Clinical significance of this findin g is uncertain. The pancreas appears unremarkable. No ob vious gallstone is identified, though there could be focal calcification identified in the gallbladder wall, at image 121 of th e precontrast series. No acute renal pathology is seen and no hyd ronephrosis or perirenal fluid collection is identified. The left adrenal gland is unremarkable. The right adrenal gland could be mildly prominent/nodular. Bowel is not well assessed by CT angiogr aphy as enteric contrast is not given. No obvious bowel dilation is identified. Scattered colonic diverticulum is seen with no inflammator y changes present. Small bilateral fat-containing inguinal hernia is identified. The prostate is prominent. The bladder a ppears grossly unremarkable. Superficial wound is identified in the r ight groin suggesting prior catheterisation and associated inflammat ory changes are seen in the right groin with no haematoma or extrava sation of contrast identified. No free air free flow seen abdomen pelvi s and no significant retroperitoneal adenopathy is identified . In the bony windows, no acute bony patho logy is seen. Some degenerative changes is noted. CONCLUSIONS: 1. Patient has a diagnosis of aortic stenosis. The aortic valve is tricuspid. The aortic Agatston Score i s over 5700 and aortic valve area is 64 mm2. No mitral annular calcif ication is seen and tiny focal calcification seen along the anter ior leaflet of the mitral valve. Minimal calcification is identified the level of the aortic root. Dimensions that may be helpful for TAVR as described above. 2. Coronary artery origins are normal. Calcification versus stent is present in the LAD territory. 3. Mild to moderate bibasal pleural ef fusion. The central pulmonary artery is at the upper limits of normal in size. Pulmonary vasculature is prominent sugge sting underlying cardiac congestion. Evidence of prior granulomat ous disease, and noncalcified nodules are seen that represent a spectr um of underlying granulomatous disease. Nodular noncalcif ied nodule is 6 mm along the fissure of the right lung. No prior examination is available for co mparison. Professional recommendation as follows: Nodule Size 6-8 mm Low-Risk Patient: C T at 3-[address] at 18-24 months Nodule Size 6-8 mm High-Risk Patient: CT at 3-6 months then at 18-24 months 4. Other findings as described above. 5. An addendum will be dictated regard ing the non-vascular findings by the Biometrics Head Radiologist. Signed: Sudarshan Yu MD Report Verified Date/Time: 01/14/2019 18:44:15 Procedure Note Interface, External Ris In - 01/15/2019 2:13 PM [employer]ER Addendum Begins REPORT STATUS:A Addendum: I agree with the previously described no n vascular findings by Dr. Yu. Signed: Elmer Sotelo MD Report Verified Date/Time: 01/15/2019 1 4:11:09 Reading Location: [place] [address] Angio Body Reading Room Addendum Ends FINAL REPORT CT angiography of the thoracoabdominal a beny and pelvic arteries, 14 January 2019 INDICATION: This is a 83 year old male w ith aortic stenosis, presents for preprocedure TAVR assessment. TECHNIQUE: Spiral acquisition before and during intravenous contrast administration using a Siemens multidete ctor CT scanner. Images were obtained before and during the dynamic p assage of intravenous contrast material. Multi-planar 3-D vol ume-rendering reconstruction was performed using an independent works tation interactively by the interpreting physician as well as the 3- D specialist for optimal visualisation of the thoracoabdominal ao rta, the pelvic arteries as well as its proximal branches. Please refer to the contrast sheet scann ed in the [employer] system for the amount and route of contrast given. This exam was performed according to our departmental dose-optimisation programme, which inclu severiano automated exposure control, adjustment of the mA and/or kV according to patient size and/or use of iterative reconstruction t echnique. Dose modulation, iterative reconstruction, and/or weight based adjustment of the mA/kV was utilized to reduce the radiation dos e to as low as reasonably achievable. FINDINGS: VASCULAR: The pericardium appears unremarkable. No pericardial effusion is identified. The central pulmonary artery is normal i n calibre. Assessment is limited. The cardiac chambers demonstrate normal atrioventricular and ventriculoarterial concordance, and syst emic and pulmonary venous return. The left ventricle is normal in size. Le ft atrial enlargement is identified. Mild calcification is identi fied and the tip of the anterior mitral valve leaflet. The coronary artery origins are normal a nd diffuse coronary artery calcification versus stent is identified in the LAD territory. There could be scattered calcific and LCx and RCA territories. coronary calcifications are seen. Patient has a diagnosis of aortic stenos is. The aortic valve is tricuspid. The aortic Agatston score is 5712. The aortic valve area is 64 mm2. The location of aortic valvu lar calcification can be seen in reformatted data set sent to PACS. Regarding the aorta, there is minimal Co nsultation seen in the aortic root and ascending thoracic aorta is sidney e of calcification. The transverse arch and descending thoracic aorta has mild scattered calcification identified. The abdominal aorta has mild calcific and noncalcific atherosclerosis present. No aneurysmal dilation is identified. The mid ascending thoracic a beny measure approximately 3.7 cm in diameter. There is no evidence of acute aortic pat hology, specifically, there is no dissection, intramural hematoma, o r contained rupture. The arch vessel branching pattern is nor mal and the visualized arch vessels are widely patent proximally. Th e left subclavian artery has mild calcification identified proximally . At image 20, it measures 7 to 8 mm in diameter. The right subclavia n artery has mild calcific and noncalcific atherosclerosis seen pro ximally. The minimum diameter proximally, is approximately 7.4 x 5.8 m m in diameter at image 83. There are single left and right renal ar teries that are widely patent; nonobstructive calcification is seen at the takeoff of the right renal arteries. The coeliac axis, SMA, and ZAFAR are widely patent. Diffuse calcification is seen a long the pathway splenic artery. The common iliac, external iliac, common femoral, and the visualized superficial femoral arteries, bilaterall y, are widely patent with no obstructive lesion identified. Scattered calcification is identified with no obstructive lesion seen. See dim ensions below for details. Dimensions that may be helpful for TAVR as follows: Mild calcification is seen in the aortic root and ascending thoracic aorta is free of calcification. The major and minor aortic annulus diame ter measures 30.5 and 22.6 mm, respectively. The aortic annulus per imeter measured 83 mm and the cross-sectional area measures 528 mm2. T he aortic annulus diameter at the traditional LVOT and coronal LVOT me asures 23.7 and 27.8 mm, respectively. For reference purpose, per COLLAZO Solo chandler, recommendation are as follows: CT area between 273 to 345 mm2 (20 mm valve); 338 to 430 mm2 (23 mm valve); 430 to 546 mm2 (26 mm gia ve); 540 to 683 mm2 (29 mm valve). For reference purpose, per [employer] Talon alana zheng, recommendation are as follows: CT perime ter between 56.5-62.8 mm (23 mm valve); 62.8-72.3 mm (26 mm valve); 7 2.3-81.7 mm (29 mm valve); and 81.7-94.2. mm (34 mm valve). For reference purpose, per Molly chandler, recommendation are as follows: 23mm valve is recommended for C T perimeter between 62.8-72.3 mm; diameter between 20-23 mm; or area b etween 314-415.5 mm2. For 25mm valve, it is recommended for CT per imeter between 72.3-78.5 mm; diameter between 23-25 mm; or area betwe en 415.5-490.9 mm2. For 27mm valve, it is recommended for CT perimete r between 78.5-84.8 mm; diameter between 25-27 mm; or area betwe en 490.9-572.6 mm2. Agatston Score is 5712. The aortic valve area is 64 mm2. The distance between the take off of the RCA and the annulus (systole): 14.2 mm The distance between the take off of the LM and the annulus (systole): 14.0 mm The sinus of Valsalva diameter, RCC (sys tole): 35.3 mm The sinus of Valsalva diameter, LCC (sys tole): 38.7 mm The sinus of Valsalva diameter, NCC (sys tole): 38.8 mm The sinotubular junction measures, 32.6 x 32.9 mm. The aortic root angulation measures 41.7 degrees. The minimal and perpendicular abdominal aortic diameter measures 18.2 x 17.3 mm, respectively. There is no evidence of thoracoabdominal aortic aneurysm or stent placement present. There is mild ectasia seen in the mid ascending thoracic aorta that measure 4.2 x 4.1 cm in diameter. The minimum and the perpendicular left c ommon iliac artery measures 9.5 and 9.7 mm, respectively with mild tortuosity and mild calcific atherosclerosis present. The minimum and the perpendicular left external iliac artery measures 9 and 10 mm, respectively with lghf-jl-ribhzflf tortuosity and minimal calcific atherosclerosis present. The minimum and the perpendicul ar left femoral artery measures 7.0 and 9.2 mm, respectively wi th mild tortuosity and mild calcific atherosclerosis present. The minimum and the perpendicular right common iliac artery measures 7.0 and 10.1 mm, respectively with mild tortuosity and mild to moderate calcific atherosclerosis prese nt; localised atherosclerotic ulceration is identified, at image 249. The minimum and the perpendicular right external iliac radha ry measures 9.3 and 10.7 mm, respectively with unremarkable tortuosi ty and minimal calcific atherosclerosis present. The minimum and the perpendicular right femoral artery measures 7.7 and 8.3 mm, respectively with minimal tortuosity and no calcific atherosclero sis present. NON-VASCULAR: The visualised thyroid gland is unremark able. The chest wall and mediastinum appear no rmal. No significant adenopathy is seen. In the lung windows, no endobronchial le celine is identified. Mild to moderate bibasal pleural effusions ident ified, with associated atelectatic changes present. Pulmonary v asculature is prominent suggesting underlying cardiac congestion . Correlate with clinical examination. Calcified pleural plaque is seen, in the left, at image 216. Calcified nodule is seen, in the le ft lung, at image 560 representing underlying granulomatous di sease. In the right apex, scar nodule is identi fied at image 33. An addendum dictated thereafter, if needed. Small no dule is identified in the anterior aspect of the right middle lobe , measure 4 mm, at image 456. In addition, nodular opacity is seen, me asure 6 mm, at image 458, along the fissure of the right lung. No prior examination is available for comparison. In the abdomen, the liver and spleen pb ears unremarkable no acute pathology is identified. No abnormal enh ancing structure is seen. In the AP orientation, the spleen is promin ent measure approximately 15 cm. Clinical significance of this findin g is uncertain. The pancreas appears unremarkable. No ob vious gallstone is identified, though there could be focal calcification identified in the gallbladder wall, at image 121 of th e precontrast series. No acute renal pathology is seen and no hyd ronephrosis or perirenal fluid collection is identified. The left adrenal gland is unremarkable. The right adrenal gland could be mildly prominent/nodular. Bowel is not well assessed by CT angiogr aphy as enteric contrast is not given. No obvious bowel dilation is identified. Scattered colonic diverticulum is seen with no inflammator y changes present. Small bilateral fat-containing inguinal hernia is identified. The prostate is prominent. The bladder a ppears grossly unremarkable. Superficial wound is identified in the r ight groin suggesting prior catheterisation and associated inflammat ory changes are seen in the right groin with no haematoma or extrava sation of contrast identified. No free air free flow seen abdomen pelvi s and no significant retroperitoneal adenopathy is identified . In the bony windows, no acute bony patho logy is seen. Some degenerative changes is noted. CONCLUSIONS: 1. Patient has a diagnosis of aortic s tenosis. The aortic valve is tricuspid. The aortic Agatston Score is over 5700 and aortic valve area is 64 mm2. No mitral annular calcif ication is seen and tiny focal calcification seen along the anter ior leaflet of the mitral valve. Minimal calcification is identified the level of the aortic root. Dimensions that may be helpful for TAVR as described above. 2. Coronary artery origins are normal. Calcification versus stent is present in the LAD territory. 3. Mild to moderate bibasal pleural eff usion. The central pulmonary artery is at the upper limits of normal in size. Pulmonary vasculature is prominent sugge sting underlying cardiac congestion. Evidence of prior granulomat ous disease, and noncalcified nodules are seen that represent a spectr um of underlying granulomatous disease. Nodular noncalcif ied nodule is 6 mm along the fissure of the right lung. No prior examination is available for co mparison. Professional recommendation as follows: Nodule Size 6-8 mm Low-Risk Patient: CT at 3-[address] at 18-24 months Nodule Size 6-8 mm High-Risk Patient: C T at 3-6 months then at 18-24 months 4. Other findings as described above. 5. An addendum will be dictated regardi ng the non-vascular findings by the Biometrics Head Radiologist. Signed: Sudarshan Yu MD Report Verified Date/Time: 01/14/2019 1 8:44:15 Performing Organization Address City/State/Zipcode Phone Number [facility] 2D Echo W/Doppler(CW/PW/Color) (01/14/2019 11:00 AM FUEL HANDLER) Pathologist Sig nature Ejection Fraction [facility] Specimen Narrative Performed At Transthoracic Echocardiography Report (T TE) 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 Clinical History CHF, DMII, Severe PCI X2 (2017) Contrast Medium: Definity. Height: 72 inches Weight: 88 kg (194 lbs) BSA: 2.1 m^2 BMI: 26.31 kg/m^2 HR: 75 bpm BP: 108/67 mmHg Summary The left ventricle is chamber size (by vol index) is normal (male - LVED vol - 34-74ml/m2). The following segment(s) appear akinetic: apical anteroseptum, apical anterior, apex . The other segments are mildly hypokinetic. LVEF by Glynn's method of disk assessment is srqxly-bh-ztdoonygab reduced (40%) . Grade 2 diastolic dysfunction (moderately increased LA pressure). There is mild aortic regurgitation. Severe aortic stenosis. AoV area at rest by continuity equation is in the range of 0.5 cm2. AoV resting dimensionless obstructive index (DOI) = 0.13. AoV resting Mean Gradient = 50mmH g.. Estimated peak systolic PA pressure is 50-55 mmHg + RA pressure. Signature Findings Left Ventricle The left ventricle is chamber size (by vol index) is normal (male - LVED vol - 34-74ml/m2). Normal L V wall thickness. The following segment(s) appe ar akinetic: apical anteroseptum, apical anterior, apex . The other segments are mildly hypokinetic. LVEF by Glynn's method of disk assessment is oattwu-if-uecfhixguc reduced (40%) . Grade 2 diastolic dysfunction (moderately increa sed LA p ressure). Left Atrium LA size is severely enlarged (>48 ml/m2) . Right Ventricle The right ventricular chamber size and systolic function are within normal limits. Right Atrium RA size is normal. Aortic Valve Moderate AoV cusp thickening. Moderate AoV cusp calcification. There is mild aortic regurgitation. Severe aortic stenosis. AoV area at rest by continuity equation is in the range of 0.5 cm2. AoV resting dimensionless obstructive index (DOI) = 0.13. AoV resting Mean Gradient = 50mmHg.. Mitral Valve Mild MV leaflet thickening. Mild mitral regurgitation. Tricuspid Valve TV structure is normal. Mild tricuspid regurgitation. Estimated peak systolic PA pressure is 50-55 mmHg + RA p ressure. Pulmonic Valve PV is not well visualized. A trace of pulmonary regurgitation. Aorta Aortic root size (SInus of Valsalva diameter) is norm al . Pericardium No pericardial effusion is visualized. IVC/SVC/PA/PV/Pleural The estimated RA pressure by IVC dynamics 5-10mmHg . Chambers/Structures Left Atrium LA Dimension: 4.05 cm LA Area: 26.53 cm^2 LA Volume: 104.21 ml LA Vol. Index: 50 ml/m^2 Left Ventricle LVIDd: 5.95 cm LVIDs: 4.8 cm LV Septum Diastolic: 0.95 cm LV PW Diastolic: 1 cm LV FS: 19.3 % LVEDV Glynn's:141.33 ml LVESV Glynn's:85.19 ml LVEDVI: 67 ml/m^2 LVEF Glynn's: 39.7 % LVESVI: 41 ml/m^2 LVOT Diameter: 2.19 cm Aorta Ao Root S of Gia.: 2.93 cm Doppler/Quantitative Measurements Aortic Valve Peak Velocity: 4.63 m/s Mean Velocity: 3.3 m/s Peak Gradient: 85.71 mmHg Mean Gradient: 50.09 mmHg AV Area (continuity): 0.49 cm^2 AV VTI: 101.69 cm AV DVI: 0.13 LVOT Peak Velocity: 0.54 m/s Peak Gradient: 1.16 mmHg Mean Velocity: 0.38 m/s Mean Gradient: 0.65 mmHg LVOT Diameter: 2.19 cm LVOT VTI: 13.31 cm LVOT Area: 3.77 cm^2 LVOT SV:50.11 ml LVOT CO: 3.76 l/min LVOT CI: 1.79 l/min/m^2 Procedure Note Interface, External Ris In - 01/14/2019 12:25 PM FUEL HANDLER Transthoracic Echocardiography Report (TTE) Demographics Patient Name KRYSTIAN RUBIN Date of Study 01/14/2019 LIU Gend er Male Visit Number [id number] Race Unknown Room Number 1135 Number Date of 1935 Refe korey emery Age 83 year(s) Sono amilcar Nugent, [facility] Inte rpreting Aiden Angel MD Procedure Type of Study TTE procedure:2DECHO W DOPPLE R(CW/PW/COLOR) (GAIL) Indications:Dyspnea/SOB. Clinical History CHF, DMII, Severe PCI X2 (2017) Contrast Medium: Definity. Height: 72 inches Weight: 88 kg (194 lbs ) BSA: 2.1 m^2 BMI: 26.31 kg/m^2 HR: 75 bpm BP: 108/67 mmHg Summary The left ventricle is chamber size (by vol index) is normal (male - LVED vol - 34-74ml/m2). The following segmen t(s) appear akinetic: apical anteroseptum, apical anterior, apex . T he other segments are mildly hypokinetic. LVEF by Glynn's method o f disk assessment is oeahfh-gw-darvaoxypu reduced (40%) . Grade 2 diastolic dysfunction (moderate ly increased LA pressure). There is mild aortic regurgitation. Severe aortic stenosis. AoV area at res t by continuity equation is in the range of 0.5 cm2. AoV resting dimension less obstructive index (DOI) = 0.13. AoV resting Mean Gradient = 50mmH g.. Estimated peak systolic PA pressure is 50-55 mmHg + RA pressure. Signature Findings Left Ventricle The left ventric le is chamber size (by vol index) is normal (male - LVED vol - 34-74ml/m2). Normal LV wall thickness. The following segment(s) appear akinetic: apical anteroseptum, apical anterior, apex . The other segments are mildly hypokinetic. LVEF by Glynn' s method of disk assessment is jumbmy-lh-ucuyps tely reduced (40%) . Grade 2 diastoli c dysfunction (moderately increased LA pressure). Left Atrium LA size is sever stephani enlarged (>48 ml/m2) . Right Ventricle The right ventri cular chamber size and systolic function are wit hin normal limits. Right Atrium RA size is carlos l. Aortic Valve Moderate AoV cus p thickening. Moderate AoV cus p calcification. There is mild ao rtic regurgitation. Severe aortic st enosis. AoV area at rest by continuity equat ion is in the range of 0.5 cm2. AoV resting dimensio nless obstructive index (DOI) = 0.13. AoV restin g Mean Gradient = 50mmHg.. Mitral Valve Mild MV leaflet thickening. Mild mitral regu rgitation. Tricuspid Valve TV structure is normal. Mild tricuspid r egurgitation. Estimated peak s ystolic PA pressure is 50-55 mmHg + RA pressure. Pulmonic Valve PV is not well v isualized. A trace of pulmo nary regurgitation. Aorta Aortic root size (SInus of Valsalva diameter) is normal . Pericardium No pericardial e ffusion is visualized. IVC/SVC/PA/PV/Pleural The estimated RA pressure by IVC dynamics 5-10mmHg . Chambers/Structures Left Atrium LA Dimension: 4.05 cm LA Area: 26.53 cm^2 LA Volume: 104.21 ml LA Vol. Index: 50 ml/m^2 Left Ventricle LVIDd: 5.95 cm LVIDs: 4.8 cm LV Septum Diastolic: 0.95 cm LV PW Diastolic: 1 cm LV FS: 19.3 % LVEDV Glynn's:141.33 ml LVESV Glynn's:85.19 ml LVEDVI: 67 ml/m^2 LVEF Glynn's: 39.7 % LVESVI: 41 ml/m^2 LVOT Diameter: 2.19 cm Aorta Ao Root S of Gia.: 2.93 cm Doppler/Quantitative Measurements Aortic Valve Peak Velocity: 4.63 m/s Mean Velocity: 3.3 m/s Peak Gradient: 85.71 mmHg Mean Gradient: 50.09 mmHg AV Area (continuity): 0.49 cm^2 AV VTI: 101.69 cm AV DVI: 0.13 LVOT Peak Velocity: 0.54 m/s Pea k Gradient: 1.16 mmHg Mean Velocity: 0.38 m/s Juani n Gradient: 0.65 mmHg LVOT Diameter: 2.19 cm LVO T VTI: 13.31 cm LVOT Area: 3.77 cm^2 LVO T SV:50.11 ml LVOT CO: 3.76 l/min LVO T CI: 1.79 l/min/m^2 Performing Organization Address [facility] Cent[facility]ode Phone Number [facility] MKCKESSON CPACS Troponin I (01/14/2019 2:16 AM FUEL HANDLER)Only the most recent of2 resultswithin the time period is included. Pathologist Sig nature Troponin I 5.61 (HH) 0.00 - 0.03 ng/mL [facility] Specimen Blood Narrative Performed At Troponin I (TnI) levels must be interpreted [facility] in the context of the presenting symptoms and the clinical findings. Elevated TnI levels indicate myocardial damage, but are not specific for ischemic heart disease. Elevated TnI levels are seen in patients with other cardiac conditions (including myocarditis and congestive heart failure), and slight TnI elevations occur in patients with other conditions, including sepsis, renal failure, acidosis, acute neurological disease, and persistent tachyarrhythmia. Performing Organization Address City/[facility] [place] [address] CENTER PT/aPTT (01/14/2019 1:51 AM FUEL HANDLER)Only the most recent of2 resultswithin the time period is included. Pathologist Sig nature Protime 15.7 (H) 11.9 - 14.2 seconds [facility] INR 1.3 <=5.9 [facility] PTT 46.1 (H) 22.5 - 36.0 seconds [facility] Specimen Blood Narrative Performed At Effective 07/10/2018: PT Reference Range [facility] Change New: 11.9-14.2 Previous: 11.7-14.7 RECOMMENDED COUMADIN/WARFARIN INR THERAPY RANGES STANDARD DOSE: 2.0-3.0 Includes: PROPHYLAXIS for venous thrombosis, systemic embolization; TREATMENT for venous thrombosis and/or pulmonary embolus. HIGH RISK: Target INR is 2.5-3.5 for patients wiht mechanical heart valves. Performing Organization Address [facility] Centercode Phone Number [address] [address] CENTER ABORH, manual (01/13/2019 8:35 PM FUEL HANDLER) Pathologist Sig nature ABO Grouping A [facility] [place] Rh Factor NEG [facility] Specimen Blood Performing Organization Address [facility] Centercode Phone Number [address] [address] TSH/Free T4 If Indicated (01/13/2019 8:35 PM FUEL HANDLER) Pathologist Sig nature TSH 1.51 0.35 - 4.94 uIU/mL [facility] Specimen Blood Performing Organization Address [facility] Centerconh Phone Number [address] [address] [place] B-type Natriuretic Factor (BNP) (01/13/2019 6:39 PM FUEL HANDLER) Pathologist Sig nature BNP 1,799 (H) 0 - 100 pg/mL [facility] Specimen Blood Performing Organization Address [facility] Centercode Phone Number [address] [address] CENTER Hepatic function panel (01/13/2019 6:38 PM FUEL HANDLER) Pathologist Sig nature Protein, Total 6.1 6.0 - 8.3 gm/dL [facility] Albumin 3.6 3.5 - 5.0 g/dL [facility] Total Bilirubin 2.4 (H) 0.2 - 1.2 mg/dL [facility] Bilirubin, Direct 1.0 (H) 0.1 - 0.5 mg/dL [facility] Alkaline Phosphatase 62 40 - 150 U/L [facility] AST 23 5 - 34 U/L [facility] ALT 10 6 - 55 U/L [facility] Specimen Blood Narrative Performed At Specimen slightly icteric [facility] Performing Organization Address [facility] Centercode Phone Number [facility] [address] [place] [address] CENTER Lipid panel (01/13/2019 6:38 PM FUEL HANDLER) Pathologist Sig nature Triglycerides 102 mg/dL [facility] Cholesterol 130 mg/dL [facility] HDL 26 mg/dL [facility] [place] LDL Calculated 84 mg/dL [facility] [place] Specimen Blood Narrative Performed At Triglyceride Reference Range: [facility] Low Risk <150 Borderline 150-199 High Risk 200-499 Very High Risk >=500 Cholesterol Reference Range: Low Risk <200 Borderline 200-239 High Risk >240 HDL Cholesterol Reference Range: Low Risk >=60 High Risk <40 LDL Cholesterol Reference Range: Optimal <100 Near Optimal 100-129 Borderline 130-159 High 160-189 Very High >=190 Specimen slightly icteric Performing Organization Address City/State/Zipcode Phone Number [facility] [address] [place] [address] CENTER after 12/10/2018 Insurance Payer Benefit Plan / Subscriber ID Effective Dates Phone Addre ss Type Group MEDICARE MEDICARE A B [id number] 2001-Present Medicare [facility] [id number] 2016-Presen SUPPLEMENT/INDIV t IDUAL Advance Directives For more information, please contact: [phone] Code Status Date Activated Date Inactivated Comments Full Code 01/21/2019 3:08 AM 01/22/2019 5:50 PM This code status was determined by: Patient Full Code 01/16/2019 8:53 AM 01/21/2019 3:08 AM This code status was determined by: Patient
--- OUTSIDE RECORDS SUMMARY | 2019-12-11 19:04 | XMS REPORT | Continuity of Care Document ---
:1935 Author Organization [facility] t Address [address] [place] [address] [address]. [address] [place] [address] Care Team Providers Name Role Phone Gage Voss Primary Care Physician Ale MARIE, A Attending Clinician Unavailable Seferino LOERA Attending Clinician Gene Perry MD Attending Clinician Ben LOERA Attending Clinician Yariel Attending Clinician Unavailable Zoila LOERA Attending Clinician SEFERINO Attending Clinician Unavailable SEFERINO Admitting Clinician Unavailable Payers Payer Name Policy Type Policy Effective Date Expiration Date Sour ce Number MEDICAREMEDICARE A [id number] 2001 JAYJAY Moon [id number] 2001-P 00:00:00 - Medical [facility] Center [id number] [facility] SUPPLE[facility]IVIDUALM 00:00:00 - [place] [facility] [id number] 2015-P resent Problems Condition Condition Condition Status Onset Resolution Last Treating Co mments Source Name Details Category Date Date Treatment Clinician Date LBBB post LBBB post Disease Active 2018-[address] [facility] TAVR TAVR 2-12 [facility] - 00:00: Medical 00 [place] Paroxysmal Paroxysmal Disease Active 2018-[address] atrial atrial 2-12 [facility] - fibrillati fibrillati 00:00: Me dical on on Center S/p TAVR S/p TAVR Disease Active 2018-[facility] implant of implant of 2-10 Kisha kes - Noe Noe 00:00: Medical S3#29 on S3#29 on 00 Center 01/20/19 01/20/19 KENNEDI to LAD KENNEDI to LAD Disease Active 2018-[address] and RCA on and [facility]CA [facility] 01[facility]17[facility]19 01/17/19 00:00: Medical 00 [place] 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 [facility] 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, NYHA CHF, NYHA class 4 class 4 Aortic Aortic Disease Active 2018-[address] [facility] stenosis, stenosis, 2-03 Luke s - severe severe 00:00: Medical 00 [place] Frailty Frailty Disease Active 2018-[address] [facility] syndrome syndrome 2-03 [facility] - in in 00:00: Medical geriatric geriatric 00 Cent er patient patient Acute Acute Disease Active [facility] non-ST non-ST - [facility] - elevation elevation 00:00: Medi manpreet myocardial myocardial 00 Ce nter infarction infarction (NSTEMI) (NSTEMI) Type 2 Type [address] [facility] diabetes diabetes - [facility] - mellitus mellitus 00:00: Medica l with with 00 Center diabetic diabetic nephropath nephropath y y Allergies, Adverse Reactions, Alerts This patient has no known allergies or adverse reactions. Family History Family Member Diagnosis Comments Start Date Stop Date Source Natural mother Heart disease [facility] Social History Social Habit Start Date Stop Date Quantity Comments Source History [facility] - Alcohol Std Drinks Medica Center History [facility] - Alcohol Binge Medical Janeen ter Sex Assigned At [facility] Tobacco use and 2019-01-22 2019-01-22 Never used [facility] - exposure 00:00:00 00:00:00 [facility] Alcohol intake 2019-01-22 2019-01-22 Current [facility] es - 00:00:00 00:00:00 non-drinker of Medical Ce nter alcohol (finding) History [facility] 2019-01-13 2019-01-13 1 [facility] - Alcohol Frequency 00:00:00 00:00:00 [facility] Smoking Status Start Date Stop Date Source Never smoker [facility] edical [place] Medications Ordered Filled Start Stop Current Ordering Indication Dosage Frequency Signature Comments Components Source Medication Medication Date Date Medication? Clinician (SIG) Name Name clopidogrel 2018-02- No 75mg QD Take [address] [facility] [address] (PLAVIX) 75 03-26 12-11 tablet (75 L ukes - mg tablet 00:00: 23:59 mg total) Me dical 00 :00 by mouth Center daily No more refills through my office. furosemide 2018-02- No 40mg QD Take [address] [facility] [address] (LASIX) 40 03-26-11 tablet (40 Kisha kes - MG tablet 00:00: 23:59 mg total) Me dical 00 :00 by mouth Center daily No more refills through my office. potassium 2018-02- No 10meq QD Take [address] [facility] [address] chloride SA 03-26-11 tablet (10 L ukes - (K-DUR,KLOR 00:00: 23:59 mEq total) Medical -CON) 10 00 :00 by mouth Center MEQ tablet daily No more refills through my office.. aspirin 81 2018-02 Yes 81mg QD Take [address] MG EC 211 by mouth [facility] - tablet 15:50: daily. Medical 15 Center multivit-mi 2018-02 Yes Take by [facility] ns/iron/fol 2-11 mouth. [facility] - ic/lycop 15:50: Medical (CENTRUM 15 Center MEN ORAL) metoprolol 2018-02- No 25mg QD Take [address] (TOPROL-XL) 03-25 12-11 by mouth Bear es - 50 MG 24 hr 11:35: 00:00 daily. Med ical tablet 05 :00 [place] dextrometho 2018-02 Yes Use as [facility] rphan-guaif 2-11 needed per Kisha moyas - enesin 00:00: package Medical (ROBITUSSIN 00 instructio Ce nter COUGH-CHEST ns for ZACHERY DM) cough. It 5-100 mg/5 is over mL Liqd the counter. atorvastati 2018-02- No 80mg QD Take [address] [facility] [address] n (LIPITOR) 2 12-10 tablet (80 L ukes - 80 MG 00:00: 23:59 mg total) Medica l tablet 00 :00 by mouth Center nightly No more refills through my office. digoxin 2018-02- No 250ug QD Take [address] (LANOXIN) 2-11 12-10 tablet [facility] - 0.25 MG 00:00: 23:59 (250 mcg Medic al tablet 00 :00 total) by Center mouth daily No more refills through my office. metoprolol 2018-02- No 50mg Q.5D Take [address] (LOPRESSOR) 03-25 tablet (50 L ukes - 50 MG 00:00: 23:59 mg total) Medica l tablet 00 :00 by mouth 2 Center (two) times daily No more refills through my office. cefdinir 2018-02- No 300mg Take 1 [facility] (OMNICEF) 03-25 12-16 capsule [facility] - 300 MG 00:00: 23:59 (300 mg Medical capsule 00 :00 total) by Center mouth every 12 (twelve) hours for 5 days. glimepiride 2018-02- No 4mg Q.5D Take [address] [facility] (AMARYL) 4 03-24 12-05 by mouth 2 Kisha kes - MG tablet 11:13: 00:00 (two) Medica l 43 :00 times Center daily. insulin 2018-02 Yes To use 24 [facility] glargine 2-05 units [facility]ukes - (LANTUS 00:00: twice a Medical SOLOSTAR 00 day. Center U-100 INSULIN) 100 unit/mL (3 mL) [facility] insulin 2018-02 Yes To use [address] aspart 2-05 to 20 [facility]ukes - U-100 00:00: units Medical (NOVOLOG 00 three Center FLEXPEN times a U-100 day per INSULIN) sliding 100 unit/mL scale. (3 mL) [facility] insulin pen 2018-02 Yes Use as [facility] needles (BD 2-05 directed. Bear es - ULTRA-FINE 00:00: Dispense Med ical SREEKANTH) 4 mm 00 as Center x 32 G written, do not substitute . Brand medically necessary. To use 6 a day. blood sugar 2018-[address] diagnostic 2-05 ;Test [facility]ukes - (GLUCOSE 00:00: strips to Medi manpreet BLOOD) Strp 00 use 4 a Cente r day# 400 Refills x3;Lancets to use 4 a day #400 Refills x3; DX E11.65. Vital Signs Vital Name Observation Time Observation Value Comments Source Systolic blood 2019-01-22 12:02:00 122 mm[Hg] [facility] Diastolic blood 2019-01-22 12:02:00 65 mm[Hg] [facility] Heart rate 2019-01-22 12:02:00 78 /min [facility] Body temperature 2019-01-22 12:02:00 36.94 Mary Kate [facility] Respiratory rate 2019-01-22 12:02:00 16 /min [facility] Oxygen saturation in 2019-01-22 12:02:00 97 /min [facility] Arterial blood by Medical Ce nter Pulse oximetry Body weight 2019-01-21 08:00:00 88.8 kg [facility] BMI 2019-01-21 08:00:00 26.55 kg/m2 [facility] Body height 2019-01-13 16:00:00 182.9 cm [facility] Procedures Procedure Date / Time Performing Clinician Source Performed VASCULAR DIAGRAM -SCAN 2019-01-29 12:40:51 Provider, Default [facility] RHYTHM STRIP - SCAN 2019-01-24 08:31:29 Provider, [facility] REPORT OF PROCEDURE - 2019-01-24 08:31:25 Provider, Default [facility] ENDOSCOPY [facility] VASCULAR DIAGRAM -SCAN 2019-01-24 08:31:23 Provider, Default [facility] CARDIAC CATH REPORT - SCAN 2019-01-24 08:31:22 Provider, Default [facility] CARDIAC CATH REPORT - SCAN 2019-01-24 08:31:18 Provider, Default [facility] ECHOCARDIOGRAM REPORT - 2019-01-22 21:20:52 Provider, Default Leonel [facility] POCT-GLUCOSE METER 2019-01-22 12:08:00 [place] Miranda [facility] XR CHEST 1 VIEW 2019-01-22 11:41:00 [place] Miranda [facility] PORTABLE/BEDSIDE [facility] DIGOXIN LEVEL 2019-01-22 08:42:00 Kt Benson [facility] POCT-GLUCOSE METER 2019-01-22 07:39:00 [place] Miranda [facility] BASIC METABOLIC PANEL (7) 2019-01-22 03:33:[address] [facility] MAGNESIUM 2019-01-22 03:33:00 Seferino [place] [facility] CBC W/PLT COUNT & AUTO 2019-01-22 03:33:00 Seferino [place] RO Rani myers [facility] (CELLAVISION MANUAL DIFF) 2019-01-22 03:33:[address] [place] [facility] POCT-GLUCOSE METER 2019-01-21 21:54:00 Seferino [place] [facility] ECHOCARDIOGRAM REPORT - 2019-01-21 21:23:45 Provider, [facility] TRANSFUSION SERVICE REPORT 2019-01-21 18:51:53 Provider, Shahzad [facility] POCT-GLUCOSE METER 2019-01-21 17:46:00 Seferino [place] [facility] POCT-GLUCOSE METER 2019-01-21 15:49:00 Seferino [facility] 2D ECHO W/ DOPPLER 2019-01-21 13:47:35 Kt Benson [facility] (CW/PW/COLOR) [facility] POCT-GLUCOSE METER 2019-01-21 11:33:00 Sef[facility]inoHouston [facility] RHYTHM STRIP - SCAN 2019-01-21 11:00:54 Provider, [facility] POCT-GLUCOSE METER 2019-01-21 07:43:00 Seferino [place] [facility] ECG 12-LEAD 2019-01-21 06:08:00 Unknown, Hl7 Doctor [facility] BASIC METABOLIC PANEL (7) 2019-01-21 04:12:[address] [place] [facility] MAGNESIUM 2019-01-21 04:12:00 [facility] W/PLT COUNT & AUTO 2019-01-21 04:12:00 [place] Miranda JAYJAY Rani myers [facility] POCT-GLUCOSE METER 2019-01-20 21:07:00 Seferino [place] [facility] POCT-GLUCOSE METER 2019-01-20 16:42:00 Seferino [facility] ECG 12-LEAD 2019-01-20 14:09:27 Unknown, 7 [facility] ECG 12-LEAD 2019-01-20 13:20:41 Unknown, 7 [facility] ECG 12-LEAD 2019-01-20 13:06:57 Unknown, 7 [facility] ECG 12-LEAD 2019-01-20 13:06:29 Unknown, 7 [facility] POCT-GLUCOSE METER 2019-01-20 12:59:00 [facility] PREPARE LEUKO-REDUCED RBC 2019-01-20 11:16:00 Lobo Perry [facility] POCT-ACT 2019-01-20 10:14:00 [facility] URINALYSIS W/ REFLEX URINE 2019-01-20 09:19:06 Lobo Perry [facility] CULTURE [facility] URINE CULTURE 2019-01-20 09:19:[address] [facility] TRANSESOPHAGEAL ECHO 2019-01-20 07:49:[address] [facility] COLOR-FLOW MAPPING 2019-01-20 07:23:08 [facility] WAVE PULSED DOPPLER 2019-01-20 07:23:[address] [facility] TAVR / STEPHEN MCR - IP 2019-01-20 07:06:00 Lobo Perry [facility] PROC ONLY [facility] BASIC METABOLIC PANEL (7) 2019-01-20 04:04:00 [place] Miranda CH, I [facility] MAGNESIUM 2019-01-20 04:04:00 [place] Miranda [facility] APTT 2019-01-20 04:[facility]T [facility] & AUTO 2019-01-20 04:04:00 [facility] (CELLAVISION MANUAL DIFF) 2019-01-20 04:04:00 Jdmakenzie [place] [facility] POCT-GLUCOSE METER 2019-01-19 23:09:00 Seferino [facility] APTT 2019-01-19 17:51:00 Seferino [facility] POCT-GLUCOSE METER 2019-01-19 16:48:00 Jdmakenzie [facility] POCT-GLUCOSE METER 2019-01-19 11:26:00 Seferino [facility] APTT 2019-01-19 11:24:00 [facility] POCT-GLUCOSE METER 2019-01-19 08:05:00 [facility] BASIC METABOLIC PANEL (7) 2019-01-19 04:02:[address] [place] [facility] MAGNESIUM 2019-01-19 04:02:00 [facility] LACTIC ACID, VENOUS 2019-01-19 04:02:00 [facility] CBC W/PLT COUNT & AUTO 2019-01-19 04:02:00 Jdmakenzie [facility] (CELLAVISION MANUAL DIFF) 2019-01-19 04:02:00 Jdmakenzie [place] [facility] POCT-GLUCOSE METER 2019-01-18 22:39:00 [facility] TRANSFUSION SERVICE REPORT 2019-01-18 18:02:14 Provider [facility] SCAN [facility] POCT-GLUCOSE METER 2019-01-18 17:40:00 [facility] POCT-GLUCOSE METER 2019-01-18 12:30:00 [facility] POCT-GLUCOSE METER 2019-01-18 12:16:00 [facility] POCT-GLUCOSE METER 2019-01-18 07:49:00 [facility] APTT 2019-01-18 03:43:00 [facility] BASIC METABOLIC PANEL (7) 2019-01-18 03:43:00 [place] Miranda CH, I [facility] MAGNESIUM 2019-01-18 03:43:00 Seferino [facility] CBC W/PLT COUNT & AUTO 2019-01-18 03:43:00 [place] Miranda [facility] ECG 12-LEAD 2019-01-17 20:18:44 Unknown, Hl7 Doctor [facility] ECG 12-LEAD 2019-01-17 20:17:48 Unknown, Hl7 [facility] POCT-GLUCOSE METER 2019-01-17 16:51:00 Seferino [facility] POCT-ACT 2019-01-17 13:07:00 Seferino [facility] CORONARY ANGIOS & STENT 2019-01-17 11:45:00 Jasmina Cummings [facility] POCT-GLUCOSE METER 2019-01-17 07:17:00 Seferino [facility] APTT 2019-01-17 05:07:00 Seferino [facility] BASIC METABOLIC PANEL (7) 2019-01-17 05:07:00 [place] Miranda [facility] MAGNESIUM 2019-01-17 05:07:00 Seferino [facility] PROTHROMBIN TIME/INR 2019-01-17 05:07:00 Abdifatah Grissom [facility] TYPE AND SCREEN, AUTOMATED 2019-01-17 05:07:00 Abdifatah Grissom [facility] CBC W/PLT COUNT & AUTO 2019-01-17 05:07:00 Seferino [facility] POCT-GLUCOSE METER 2019-01-16 21:57:00 [facility] POCT-GLUCOSE METER 2019-01-16 17:22:00 [facility] POCT-GLUCOSE METER 2019-01-16 11:55:00 [facility] POCT-GLUCOSE METER 2019-01-16 07:38:00 [place] [facility] BASIC METABOLIC PANEL (7) 2019-01-16 04:15:00 [place] Miranda JOHNNY Castaneda [facility] MAGNESIUM 2019-01-16 04:15:00 GiveHouston banegas [facility] APTT 2019-01-16 04:15:00 [place] Miranda [facility] CBC W/PLT COUNT & AUTO 2019-01-16 04:15:00 [place] Miranda [facility] POCT-GLUCOSE METER 2019-01-15 21:22:00 Seferino [facility] POCT-GLUCOSE METER 2019-01-15 17:50:00 Givemakenzie [facility] POCT-GLUCOSE METER 2019-01-15 15:12:00 Seferino [facility] CAROTID DOPPLER BILATERAL 2019-01-15 15:00:00 Kelley [facility] ARTERIAL DOPPLER LEGS 2019-01-15 13:50:00 Kelley [facility] POCT-GLUCOSE METER 2019-01-15 12:15:00 [facility] APTT 2019-01-15 09:20:00 [facility] POCT-GLUCOSE METER 2019-01-15 07:45:00 Seferino [facility] APTT 2019-01-15 02:13:00 [place] Miranda [facility] BASIC METABOLIC PANEL (7) 2019-01-15 02:13:00 Jdmakenzie [place] TURNER I [facility] MAGNESIUM 2019-01-15 02:13:00 [facility] HEMOGLOBIN A1C 2019-01-15 02:13:00 Jessica Malik [facility] CBC W/PLT COUNT & AUTO 2019-01-15 02:13:00 Givemakenzie [place] RO Rani myers [facility] POCT-GLUCOSE METER 2019-01-14 22:00:00 [facility] ECHOCARDIOGRAM REPORT - 2019-01-14 21:20:05 Provider, [facility] OCCULT BLOOD, STOOL 2019-01-14 19:39:00 Seferino [facility] APTT 2019-01-14 19:39:00 [facility] TRANSFUSION SERVICE REPORT 2019-01-14 17:50:26 ProviderShahzad [facility] POCT-GLUCOSE METER 2019-01-14 17:29:00 [facility] CTA ABDOMEN & PELVIS 2019-01-14 16:46:00 [facility] CTA CHEST 2019-01-14 16:46:00 [facility] POCT-GLUCOSE METER 2019-01-14 14:21:00 [facility] POCT-GLUCOSE METER 2019-01-14 12:40:00 [facility] 2D ECHO W/ DOPPLER 2019-01-14 11:00:52 Lobo Perry [facility] (CW/PW/COLOR) [facility] APTT 2019-01-14 10:01:00 [facility] POCT-GLUCOSE METER 2019-01-14 08:07:00 [facility] BASIC METABOLIC PANEL (7) 2019-01-14 02:16:00 [place] Miranda CH, I [facility] MAGNESIUM 2019-01-14 02:16:00 [facility] TROPONIN I 2019-01-14 02:16:00 Kt Benson [facility] PT/APTT 2019-01-14 01:51:00 [facility] CBC W/PLT COUNT & AUTO 2019-01-14 01:51:00 Seferino [facility] Rani [facility] XR CHEST 1 VIEW 2019-01-13 22:20:00 Kt Benson [facility] PORTABLE/BEDSIDE [facility] POCT-GLUCOSE METER 2019-01-13 21:30:00 [facility] ECG 12-LEAD 2019-01-13 20:52:21 Unknown, Hl7 Doctor [facility] ECG 12-LEAD 2019-01-13 20:51:45 Unknown, Hl7 [facility] TSH/FREE T4 IF INDICATED 2019-01-13 20:35:00 Kt Benson [facility] ABORH, MANUAL 2019-01-13 20:35:00 Puja Juan [facility] HEMOGLOBIN A1C 2019-01-13 18:39:00 [place] Miranda [facility] B-TYPE NATRIURETIC FACTOR 2019-01-13 18:39:[address] [facility] (BNP) [facility] TYPE AND SCREEN, AUTOMATED 2019-01-13 18:39:00 [place] Miranda [facility] BASIC METABOLIC PANEL (7) 2019-01-13 18:38:[address] [facility] MAGNESIUM 2019-01-13 18:38:00 Seferino [facility] PT/APTT 2019-01-13 18:38:00 Seferino [facility] HEPATIC FUNCTION PANEL 2019-01-13 18:38:00 Seferino [facility] LIPID PANEL 2019-01-13 18:38:00 Kt Benson [facility] TROPONIN I 2019-01-13 18:38:00 Kt Benson [facility] POCT-GLUCOSE METER 2019-01-13 18:25:00 [place] Miranda [facility] Plan of Care Planned Activity Planned Date Details Comments Source Future Scheduled 2019-10-14 INFLUENZA VACCINE (#1) [facility] 00:[facility]:00 [code = INFLUENZA Medical Ce nter VACCINE (#1)] Future Scheduled 2019-07-17 Hemoglobin A1c [facility] - Test 00:00:00 [facility] Center (procedure) [code = 40584894] Future Scheduled 2002-05-14 MEDICARE ANNUAL [facility] - Test 00:00:00 WELLNESS (YEAR 2 or Medical Center FIRST YEAR if no IPPE) [code = MEDICARE ANNUAL WELLNESS (YEAR 2 or FIRST YEAR if no IPPE)] Future Scheduled 2001 PNEUMOCOCCAL 65+ YRS [facility] - Test 00:00:00 (1 of 1 - Medical Center [id number]) [code = PNEUMOCOCCAL 65+ YRS (1 of 1 - [id number] PCV13)] Future Scheduled [address] DIABETIC EYE EXAM [facility] - Test 00:00:00 [code = DIABETIC EYE Medical Center EXAM] Future Scheduled [address] [facility] - Test 00:00:00 examination Medical Center (regime/therapy) [code = 504783344] Future Scheduled 1946 Urine screening for [facility] - Test 00:00:00 protein (procedure) Medical Center [code = 121003865] Results Test Description Test Time Test Comments Results Result Comments Source POC-Glucose meter 2019-01-22 12:26:00 Test Item Value Reference Range Interpretation Comme nts POC-Glucose Meter (test code = 91 mg/dL 70-110 : [facility] [address] [facility] [address] [facility], [address]: Dining Room Cashier/Techni pelon ID = [id number] for LSIA GUZMAN Lab Interpretation (test code = Normal 84710-3) [facility] [id number] 12:26:00 Test Item Value Reference Range Interpretation Comments POC-GLUCOSE METER 91 mg/dL 70-110 : [facility] (BEAKER) (test code = BERTNE R [facility], 1538) [address]: Dining Room Cashier/Techni pelon ID = [id number] for LISA GUZMAN RAD, CHEST, 1 VIEW, NON [id number] 11:51:00Reason for exam:->chfShould this be performed at the bedside?->YesFINAL REPORT INDICATION: chf COMPARISON: None TECHNIQUE: Single frontal view of the chest. FINDINGS: Lungs and pleura: Clear lungs. No effusion.Heart and mediastinum: Normal heart size. Unremarkable mediastinal contours.Osseous structures: No acute abnormality.Other: None. IMPRESSION: Mild central pulmonary venous congestion. Signed: Kat Menjivar Verified Date/Time: 01/22/2019 11:51:04 Reading Location: [facility] Radiology Reading Room XR chest 1 view portable / [id number] 11:51:00Interface, External Ris In - 01/22/2019 12:01 PM CSTFINAL REPORT INDICATION: chf COMPARISON: None TECHNIQUE: Single frontal view of the chest. FINDINGS: Lungs and pleura: Clear lungs. No effusion.Heart and mediastinum: Normal heart size. Unremarkable mediastinal contours.Osseousstructures: No acute abnormality.Other: None. IMPRESSION: Mild central pulmonary venous congestion. Signed: Kat Menjivar MDReport Verified Date/Time: 01/22/2019 11:51:04 Reading Location: [facility] Radiology Reading Room [facility] W/Doppler(CW/PW/Color)2019-01-22 11:46:02Ejection [facility] ECHO HEARTLAB MKCKESSON CPACSInterface, External Ris In - 01/22/2019 11:46 AM CSTTransthoracic Echocardiography Report (TTE) Demographics Patient Name KRYSTIAN RUBIN Date of Study 01/21/2019 LIU Gender Male Visit Number [id number] Race Unknown Room Number C625 Number Date of 1935 Referring [place] Miranda MD Physician Age 83 year(s) 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 Normal LV size. All segments are mildly hypokinetic.LVEF is mildly reduced (40-44%) 2. Normal RV size and function. 3. Grade 2 diastolic dysfunction (moderately increased LA pressure). 4. Well seated and well functioning Noe tissue TAVR with trivial p rosthetic AoV regurgitaton and normal (DOI) of 0.73 [...] . LVEF by Glynn's method of disk assessment is mildly reduced (40-44%) . Normal (cardiac index 2-3 L/min/m2) cardiac output state at rest is noted. Grade 2 diastolic dysfunction (moderatelyincreased LA pressure). Left Atrium LA size is moderately enlarged (42-48 ml/m2) . Right Ventricle The right ventricular chamber size and systolic function are within normal limits. Right Atrium RA size is normal. Aortic Valve A Noe pe rcutaneous (TAVR) biologic AoV prosthesis is visualized . Prosthetic AoV regurgitaton is trivial . AoV dimensionless obstructive index (DOI)) is 0.73 . Mitral Valve Mild MV leaflet thickening. Trace mitral regurgitation. Tricuspid Valve TV structure is normal. Mild tricuspid regurgitation. Estimated peak systolic PA pressure is 45-50 mmHg . Pulmonic Valve Normal PV structure and function by limited views and Doppler. Aorta Aortic root size (SInus of Valsalva diameter) is normal . Pericardium No pericardial effusion is visualized. IVC/SV C/PA/PV/Pleural The estimated RA pressure by IVC dynamics 5-10mmHg . Chambers/Structures Left Atrium LA Volume: 87.81 ml LA Vol. Index: 42 ml/m^2 Left Ventricle LVIDd: 4.48 cm LV Septum Diastolic: 1.09 cm LV PW Diastolic: 1.05 cm LVEDV Glynn's:126.7 ml LVESV Glynn's:71.78 ml LVEF Glynn's: 43.4 % LVEDVI: 60 ml/m^2 LVESVI: 34 ml/m^2 LVOT Diameter: 1.98 cm Aorta Ao Root S of Minna.: 3.25 cm Doppler/Quantitative Measurements Mitral Valve MV Peak E-Wave: 0.83 m/s MV Peak A-Wave: 0.96 m/s E/A Ratio: 0.86 Peak Gradient: 2.73 mmHg Deceleration Time: 168 msec MV Macario. Peak: Tissue Doppler E' Septal Velocity: 0.04 m/s E/E': 20.88 Aortic Valve Peak Velocity: 2.05 m/s Mean Velocity: 1.26 m/s Peak Gradient: 16.85 mmHg Mean Gradient: 7.52mmHg AV Area (continuity): 2.23 cm^2 AV VTI: 27.94 cm AV DVI: 0.73 LVOT Peak Velocity: 1.26 m/s Peak Gradient: 6.39 mmHg Mean Velocity: 0.86 m/s Mean Gradient: 3.49 mmHg LVOTDiameter: 1.98 cm LVOT VTI: 20.27 cm LVOT Area: 3.08 cm^2 LVOT SV:62.38 ml LVOT CO: 5.12 l/min LVOT CI: 2.44 l/min/m^2 Tricuspid Valve TR Velocity: 2.9 m/sTR Gradient: 33.63 mmHgSaint [facility] HospitalDigoxin [id number] 09:15:00 Test Item Value Reference Range Interpretation Comments Digoxin Lvl (test code = 0.6 ng/mL 0.8-2 L 24889-9) BEATRIZ (test code = BEATRIZ) Draw 1 hour prior to morning digoxin dose Lab Interpretation (test Abnormal code = 05739-9) [facility] [id number] 09:15:00 Test Item Value Reference Range Interpretation Comments DIGOXIN LEVEL (SAGRARIO) (test code = 0.6 ng/mL 0.8-2.0 L 669) Draw 1 hour prior to morning digoxin dosePOCT-GLUCOSE [id number] 07:52:00 Test Item Value Reference Range Interpretation Comments POC-GLUCOSE METER 106 mg/dL 70-110 : TESTED A T [facility] 6720 (S[place]IO) (test code = [place]UDE RODRIGUEZ [place], 1538) [address]: Dining Room Cashier/Techni pelon ID = [id number] for LISA GUZMAN CBC with platelet count + automated [id number] 07:44:00 Test Item Value Reference Range Interpretation Comments WBC (test code = 6690-2) 10.5 3.5- 10.5 K/L RBC (test code = 789-8) 3.88 4.63- 6.08 M/L L MCHC (test code = 786-4) 34.4 32.3- 36.5 GM/DL L Hematocrit (test code = 4544-3) 34.0 % 40.1-51 L MCV (test code = 787-2) 87.6 fL 79-92.2 MCH (test code = 785-6) 30.2 pg 25.7-32.2 RDW (test code = 788-0) 14.6 % 11.6-14.4 H Platelets (test code = 777-3) 124 150- 450 K/CU MM L MPV (test code = 52032-7) 11.9 fL 9.4-12.4 nRBC (test code = 413) 0 0- 0 /100 WBC Lab Interpretation (test code = Abnormal 33910-1) [facility] HospitalManual [id number] 07:44:00 Test Item Value Reference Range Interpretation Comments % Neutros (test code = 83 % 2816) % Lymphs (test code = 6 % 2817) % Monos (test code = 5 % 2818) % Eos (test code = 2819) 1 % % Metamyelo (test code = 1 % 0-0 H 282) % Myelo (test code = 2 % 0-0 H 282) % Atypical Lymphs (test 2 % 0-0 H code = 2829) # Neutros (test code = 8.72 K/ul 1.78-5.38 H 2830) # Lymphs (test code = 0.63 K/ul 1.32-3.57 L 2831) # Monos (test code = 0.53 K/uL 0.3-0.82 2832) # Eos (test code = 2834) 0.11 K/uL 0.04-0.54 # Metamyelo (test code = 0.11 K/uL 0-0 H 2836) # Myelo (test code = 0.21 K/uL 0-0 H 2837) # Atypical Lymphs (test 0.21 K/uL 0-0 H code = 2858) Total Counted (test code 100 = 1351) RBC Morphology (test code Normal = 762) Smudge Cells (test code = Present 1371) Giant Platelet (test code Present = 313) Platelet Conc (test code Decreased = 3438) BEATRIZ (test code = BEATRIZ) Received comment: User comments: Slide comments: Lab Interpretation (test Abnormal code = 03399-3) [facility] W/PLT COUNT & AUTO [id number] 07:44:00 Test Item Value Reference Range Interpretation Comments WHITE BLOOD CELL COUNT (BEAKER) 10.5 K/ L 3.5-10.5 (test code = 775) RED BLOOD CELL COUNT (BEAKER) 3.88 M/ L 4.63-6.08 L (test code = 761) HEMOGLOBIN (BEAKER) (test code = 11.7 GM/DL 13.7-17.5 L 410) HEMATOCRIT (BEAKER) (test code = 34.0 % 40.1-51.0 L 411) MEAN CORPUSCULAR VOLUME (BEAKER) 87.6 fL 79.0-92.2 (test code = 753) MEAN CORPUSCULAR HEMOGLOBIN 30.2 pg 25.7-32.2 (BEAKER) (test code = 751) MEAN CORPUSCULAR HEMOGLOBIN CONC 34.4 GM/DL 32.3-36.5 (BEAKER) (test code = 752) RED CELL DISTRIBUTION WIDTH 14.6 % 11.6-14.4 H (BEAKER) (test code = 412) PLATELET COUNT (BEAKER) (test 124 K/CU MM 150-450 L code = 756) MEAN PLATELET VOLUME (BEAKER) 11.9 fL 9.4-12.4 (test code = 754) NUCLEATED RED BLOOD CELLS 0 /100 WBC 0-0 (BEAKER) (test code = 413) (CELLAVISION MANUAL DIFF)2019-01-22 07:44:00 Test Item Value Reference Range Interpretation Comments NEUTROPHILS - REL 83 % (CELLAVISION)(BEAKER) (test code = 2816) LYMPHOCYTES - REL 6 % (CELLAVISION)(BEAKER) (test code = 2817) MONOCYTES - REL 5 % (CELLAVISION)(BEAKER) (test code = 2818) EOSINOPHILS - REL 1 % (CELLAVISION)(BEAKER) (test code = 2819) METAMYELOCYTES - REL 1 % 0-0 H (CELLAVISION)(BEAKER) (test code = 2821) MYELOCYTES - REL 2 % 0-0 H (CELLAVISION)(BEAKER) (test code = 2822) ATYPICAL LYMPHOCYTES - REL 2 % 0-0 H (CELLAVISION)(BEAKER) (test code = 2829) NEUTROPHILS - ABS 8.72 K/ul 1.78-5.38 H (CELLAVISION)(BEAKER) (test code = 2830) LYMPHOCYTES - ABS 0.63 K/ul 1.32-3.57 L (CELLAVISION)(BEAKER) (test code = 2831) MONOCYTES - ABS 0.53 K/uL 0.30-0.82 (CELLAVISION)(BEAKER) (test code = 2832) EOSINOPHILS - ABS 0.11 K/uL 0.04-0.54 (CELLAVISION)(BEAKER) (test code = 2834) METAMYELOCYTES - ABS 0.11 K/uL 0.00-0.00 H (CELLAVISION)(BEAKER) (test code = 2836) MYELOCYTES-ABS 0.21 K/uL 0.00-0.00 H (CELLAVISION)(BEAKER) (test code = 2837) ATYPICAL LYMPHOCYTES - ABS 0.21 K/uL 0.00-0.00 H (CELLAVISION)(BEAKER) (test code = 2858) TOTAL COUNTED (BEAKER) (test code = 100 1351) RBC MORPHOLOGY (BEAKER) (test code Normal = 762) SMUDGE CELLS (BEAKER) (test code = Present 1371) GIANT PLATELETS (BEAKER) (test code Present = 313) PLATELET CONCENTRATION Decreased (CELLAVISION)(BEAKER) (test code = 3438) Received comment: User comments: Slide comments:Basic Metabolic [id number] 04:44:00 Test Item Value Reference Range Interpretation Comments Sodium (test code = 134 meq/L 136-145 L 2951-2) Potassium (test code = 4.1 meq/L 3.5-5.1 2823-3) Chloride (test code = 101 meq/L 98-107 2075-0) CO2 (test code = 27 meq/L 22-29 2028-9) BUN (test code = 13 mg/dL 7-21 3094-0) Creatinine (test code = 0.74 mg/dL 0.57-1.25 2160-0) Glucose (test code = 125 mg/dL 70-105 H 2345-7) Calcium (test code = 8.6 mg/dL 8.4-10.2 55102-3) EGFR (test code = 101 mL/min/1.73 [place] [address]-6) NOT ACCURATE CREATININE CLEARANCE IN PREDICTING GLOMERULAR FILTRATION RATE . ESTIMATED GFR I S NOT APPLICABLE FOR DIALYSIS PATIEN TS. Lab Interpretation Abnormal (test code = 97746-7) [facility] 04:44[facility]00 Test Item Value Reference Range Interpretation Comments Magnesium (test code = 82681-6) 2.0 mg/dL 1.6-2.6 Lab Interpretation (test code = Normal 97596-6) [facility]2019-12-11 04:44:00 Test Item Value Reference Range Interpretation Comments MAGNESIUM (BEAKER) (test code = 2.0 mg/dL 1.6-2.6 627) BASIC METABOLIC [id number] 04:44:00 Test Item Value Reference Range Interpretation Comments SODIUM (BEAKER) 134 meq/L 136-145 L (test code = 381) POTASSIUM (BEAKER) 4.1 meq/L 3.5-5.1 (test code = 379) CHLORIDE (BEAKER) 101 meq/L 98-107 (test code = 382) CO2 (BEAKER) (test 27 meq/L 22-29 code = 355) BLOOD UREA NITROGEN 13 mg/dL 7-21 (BEAKER) (test code = 354) CREATININE (BEAKER) 0.74 mg/dL 0.57-1.25 (test code = 358) GLUCOSE RANDOM 125 mg/dL 70-105 H (BEAKER) (test code = 652) CALCIUM (BEAKER) 8.6 mg/dL 8.4-10.2 (test code = 697) EGFR (BEAKER) (test 101 mL/min/1.73 ESTIM ATED GFR IS code = 1092) sq m NOT ACCURATE CREATININE CLEARANCE IN PREDICTING GLOMERULAR FILTRATION RATE . ESTIMATED GFR I S NOT APPLICABLE FOR DIALYSIS PATIEN TS. POCT-GLUCOSE [id number] 22:06:00 Test Item Value Reference Range Interpretation Comments POC-GLUCOSE METER 182 mg/dL 70-110 H : TESTED A T [facility] 6720 (BEAKER) (test code = [facility], [facility]) [address]: Dining Room Cashier/Techni pelon ID = [id number] for OC SARAH, ESME POCT-GLUCOSE [id number] 17:58:00 Test Item Value Reference Range Interpretation Comments POC-GLUCOSE METER 81 mg/dL 70-110 : TESTED A T [facility] 6720 (BEAKER) (test code = [facility], 1538) 58[address]: Dining Room Cashier/Techni pelon ID = [id number] for Math ew, Remyia POCT-GLUCOSE [id number] 16:01:00 Test Item Value Reference Range Interpretation Comments POC-GLUCOSE METER 101 mg/dL 70-110 : TESTED A T [facility] 6720 (BEAKER) (test code = [facility], 1538) [address]: Dining Room Cashier/Techni pelon ID = [id number] for Ma thew, Remyia POCT-GLUCOSE [id number] 11:48:00 Test Item Value Reference Range Interpretation Comments POC-GLUCOSE METER 151 mg/dL 70-110 H : TESTED A T [facility] 6720 (BEAKER) (test code = [facility], 1538) [address]: Dining Room Cashier/Techni pelon ID = [id number] for Ma thew, Remyia Transesophageal [id number] 08:54:16Ejection FractionSLEH ECHO HEARTLAB MKCKESSON CPACSInterface, External Ris In - 01/21/2019 8:54 AM C STTransesophageal Echocardiography Report (SHAN) Demographics Patient Name KRYSTIAN RUBIN Date of Study 01/20/2019 LIU Gender Male Visit Number [id number] Race Unknown Room Number 6104 Number Date of 1935 Referring Houston Miranda MD Physician Age 83 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 Right Atrium RA size is normal. Aortic Valve Severe AoV cusp thickening. Severe AoV cusp calcification. There is moderate [...] anterior . Mitral Valve Mild MV leaflet thickening. Mild mitral regurgitation. Tricuspid TV structure is normal. Valve Mildtricuspid regurgitation. Unable to estimate peak systolic PA pressure; inadequate TR velocity signal. Pulmonic Valve Normal PV structure and function by limited views and Doppler. Aorta Aortic root size (SInus of Valsalva diameter) is normal . Pericardium No pericardial effusion is visualized. Left Ventricle LVEDV Glynn's:129.66 ml LVESVSimpson's:81.55 ml LVEF Glynn's: 37.1 % LVEDVI: 62 ml/m^2 LVESVI: 39 ml/m^2 Doppler/Quantitative Measurements Aortic Valve Peak Velocity: 4.95 m/s Mean Velocity: 3.59 m/s Peak Gradient: 97.85 mmHg Mean Gradient: 57.47 mmHg AV VTI: 114.34 cm AV DVI: 0.1 LVOT Peak Velocity: 0.47 m/s Peak Gradient: 0.9 mmHg Mean Velocity: 0.35 m/s Mean Gradient: 0.56 mmHg LVOT VTI: 11.54 [facility] 12 [id number] 08:30:16Interface, External Ris In - 01/21/2019 8:30 AM CSTVentricular Rate 84 BPMAtrial Rate 84 BPMP-R Interval 202 msQRS Duration 166 msQ-T Interval 472 msQTC Calculation(Bazett) 557 msP [place] 70 degreesR [place] 4 degreesT [place] 156 degreesSinus rhythm with Premature supraventricular complexesLeft bundle branch blockAbnormal ECGConfirmed by MD JANA, MISAEL Baires ([id number]) on 01/21/2019 8:30:13 [facility] [id number] 07:55:00 Test Item Value Reference Range Interpretation Comments POC-GLUCOSE METER 209 mg/dL 70-110 H : TESTED A T [facility] 6720 (BEAKER) (test code = JUDE RODRIGUEZ [place], 1538) [address]: Dining Room Cashier/Techni pelon ID = [id number] for FAYE MURCIA ELLIOTT [id number] 04:44:00 Test Item Value Reference Range Interpretation Comments MAGNESIUM (BEAKER) (test code = 1.7 mg/dL 1.6-2.6 627) BASIC METABOLIC [id number] 04:44:00 Test Item Value Reference Range Interpretation Comments SODIUM (BEAKER) 132 meq/L 136-145 L (test code = 381) POTASSIUM (BEAKER) 3.8 meq/L 3.5-5.1 (test code = 379) CHLORIDE (BEAKER) 97 meq/L 98-107 L (test code = 382) CO2 (BEAKER) (test 27 meq/L 22-29 code = 355) BLOOD UREA NITROGEN 17 mg/dL 7-21 (BEAKER) (test code = 354) CREATININE (BEAKER) 0.85 mg/dL 0.57-1.25 (test code = 358) GLUCOSE RANDOM 236 mg/dL 70-105 H (BEAKER) (test code = 652) CALCIUM (BEAKER) 8.6 mg/dL 8.4-10.2 (test code = 697) EGFR (BEAKER) (test 86 mL/min/1.73 ESTIMA CORINNA GFR IS code = 1092) sq m NOT ACCURATE CREATININE CLEARANCE IN PREDICTING GLOMERULAR FILTRATION RATE . ESTIMATED GFR I S NOT APPLICABLE FOR DIALYSIS PATIEN TS. Specimen slightly ictericCBC W/PLT COUNT & AUTO [id number] 04:28:00 Test Item Value Reference Range Interpretation Comments WHITE BLOOD CELL COUNT (BEAKER) 11.1 K/ L 3.5-10.5 H (test code = 775) RED BLOOD CELL COUNT (BEAKER) 4.00 M/ L 4.63-6.08 L (test code = 761) HEMOGLOBIN (BEAKER) (test code = 11.9 GM/DL 13.7-17.5 L 410) HEMATOCRIT (BEAKER) (test code = 34.7 % 40.1-51.0 L 411) MEAN CORPUSCULAR VOLUME (BEAKER) 86.8 fL 79.0-92.2 (test code = 753) MEAN CORPUSCULAR HEMOGLOBIN 29.8 pg 25.7-32.2 (BEAKER) (test code = 751) MEAN CORPUSCULAR HEMOGLOBIN CONC 34.3 GM/DL 32.3-36.5 (BEAKER) (test code = 752) RED CELL DISTRIBUTION WIDTH 14.4 % 11.6-14.4 (BEAKER) (test code = 412) PLATELET COUNT (BEAKER) (test 108 K/CU MM 150-450 L code = 756) MEAN PLATELET VOLUME (BEAKER) 11.7 fL 9.4-12.4 (test code = 754) NUCLEATED RED BLOOD CELLS 0 /100 WBC 0-0 (BEAKER) (test code = 413) NEUTROPHILS RELATIVE PERCENT 83 % (BEAKER) (test code = 429) LYMPHOCYTES RELATIVE PERCENT 7 % (BEAKER) (test code = 430) MONOCYTES RELATIVE PERCENT 4 % (BEAKER) (test code = 431) EOSINOPHILS RELATIVE PERCENT 1 % (BEAKER) (test code = 432) BASOPHILS RELATIVE PERCENT 0 % (BEAKER) (test code = 437) NEUTROPHILS ABSOLUTE COUNT 9.21 K/ L 1.78-5.38 H (BEAKER) (test code = 670) LYMPHOCYTES ABSOLUTE COUNT 0.75 K/ L 1.32-3.57 L (BEAKER) (test code = 414) MONOCYTES ABSOLUTE COUNT (BEAKER) 0.46 K/ L 0.30-0.82 (test code = 415) EOSINOPHILS ABSOLUTE COUNT 0.12 K/ L 0.04-0.54 (BEAKER) (test code = 416) BASOPHILS ABSOLUTE COUNT (BEAKER) 0.05 K/ L 0.01-0.08 (test code = 417) IMMATURE GRANULOCYTES-RELATIVE 5 % 0-1 H PERCENT (BEAKER) (test code = 2801) POCT-GLUCOSE [id number] 21:19:00 Test Item Value Reference Range Interpretation Comments POC-GLUCOSE METER 215 mg/dL 70-110 H : TESTED A T [facility] 6720 (BEAKER) (test code = [place] RODRIGUE[place], 1538) 9[address]: Dining Room Cashier/Techni pelon ID = [id number] for [place] ALFONZO, JARETH POCT-GLUCOSE [id number] 17:15:00 Test Item Value Reference Range Interpretation Comments POC-GLUCOSE METER 296 mg/dL 70-110 H : TESTED A T [place] [address] (BEAKER) (test code = [facility], 1538) [address]: Dining Room Cashier/Techni pelon ID = [id number] for CAMI MEJIA POCT-GLUCOSE [id number] 13:11:00 Test Item Value Reference Range Interpretation Comments POC-GLUCOSE METER 292 mg/dL 70-110 H : TESTED A T [place] [address] ([facility] (test code = [facility], 1538) [address]38[address]: Dining Room Cashier/Techni pelon ID = [id number] for AG UILAR, PEDRO Prepare Leuko-Red [id number] 11:16:00 Test Item Value Reference Range Interpretation Comments CROSSMATCH (test code = COMPATIBLE 4) Unit ABO (test code = A Neg 3436915) UNIT NUMBER (test code = [id number] 934-0) Status (test code = RETURNED FROM ISSUE 4114405) Blood Bank Product (test RED BLOOD CELLS code = 2263) PRODUCT CODE (test code = N7332H40 933-2) [facility] ACTIVATED CLOTTING [id number] 10:21:00 Test Item Value Reference Range Interpretation Comments Activated Clotting Time 351 sec Refe rence Range: 74-137 (test code = 441) seconds, B aseline/TESTED AT [place] [address] [facility] [address] [facility]PO[facility]-[id number] 10:21:00 Test Item Value Reference Range Interpretation Comments ACTIVATED CLOTTING TIME 351 sec Refe rence Range: (BEAKER) (test code = 74-137 seconds, 441) Baseline/TESTED AT [address] [address] Urinalysis w/Microscopic + Reflex to [id number] 10:04:00 Test Item Value Reference Range Interpretation Comments Color, UA (test code = 5778-6) Yellow Clarity, UA (test code = 5767-9) Cloudy Specific Tatamy, UA (test code = 1.011 1.001-1.035 5811-5) pH, UA (test code = 5803-2) 5.5 5.0-8.0 Protein, UA (test code = 92770-4) 10 mg/dL Negative A Glucose, UA (test code = 365) Negative Negative Ketones, UA (test code = 2514-8) Negative Negative Bilirubin, UA (test code = Negative Negative 50771-4) Blood, UA (test code = 43461-9) Moderate Negative A Nitrite, UA (test code = 5802-4) Positive Negative A Leukocytes, UA (test code = Large Negative A 5799-2) Urobilinogen, UA (test code = 0.2 mg/dL 0.2-1 08619-2) RBC, UA (test code = 24134-0) 10 /HPF WBC, UA (test code = 5821-4) 512 /HPF Bacteria, UA (test code = 64578-6) Many Mucus (test code = 8247-9) Occasional Specimen Source (test code = 2795) Lab Interpretation (test code = Abnormal 20479-5) [facility]/ REFLEX URINE [id number] 10:04:00 Test Item Value Reference Range Interpretation Comments COLOR (BEAKER) (test code = 470) Yellow CLARITY (BEAKER) (test code = 469) Cloudy SPECIFIC GRAVITY UA (BEAKER) (test 1.011 1.001-1.035 code = 468) PH UA (BEAKER) (test code = 467) 5.5 5.0-8.0 PROTEIN UA (BEAKER) (test code = 10 mg/dL Negative A 464) GLUCOSE UA (BEAKER) (test code = Negative Negative 365) KETONES UA (BEAKER) (test code = Negative Negative 371) BILIRUBIN UA (BEAKER) (test code = Negative Negative 462) BLOOD UA (BEAKER) (test code = Moderate Negative A 461) NITRITE UA (BEAKER) (test code = Positive Negative A 465) LEUKOCYTE ESTERASE UA (BEAKER) Large Negative A (test code = 466) UROBILINOGEN UA (BEAKER) (test 0.2 mg/dL 0.2-1.0 code = 463) RBC UA (BEAKER) (test code = 519) 10 /HPF WBC UA (BEAKER) (test code = 520) 512 /HPF BACTERIA (BEAKER) (test code = Many 517) MUCUS (BEAKER) (test code = 1574) Occasional SOURCE(BEAKER) (test code = 2795) CBC W/PLT COUNT & AUTO [id number] 07:17:00 Test Item Value Reference Range Interpretation Comments WHITE BLOOD CELL COUNT (BEAKER) 9.5 K/ L 3.5-10.5 (test code = 775) RED BLOOD CELL COUNT (BEAKER) 4.14 M/ L 4.63-6.08 L (test code = 761) HEMOGLOBIN (BEAKER) (test code = 12.6 GM/DL 13.7-17.5 L 410) HEMATOCRIT (BEAKER) (test code = 35.9 % 40.1-51.0 L 411) MEAN CORPUSCULAR VOLUME (BEAKER) 86.7 fL 79.0-92.2 (test code = 753) MEAN CORPUSCULAR HEMOGLOBIN 30.4 pg 25.7-32.2 (BEAKER) (test code = 751) MEAN CORPUSCULAR HEMOGLOBIN CONC 35.1 GM/DL 32.3-36.5 (BEAKER) (test code = 752) RED CELL DISTRIBUTION WIDTH 14.4 % 11.6-14.4 (BEAKER) (test code = 412) PLATELET COUNT (BEAKER) (test 119 K/CU MM 150-450 L code = 756) MEAN PLATELET VOLUME (BEAKER) 12.0 fL 9.4-12.4 (test code = 754) NUCLEATED RED BLOOD CELLS 0 /100 WBC 0-0 (BEAKER) (test code = 413) (CELLAVISION MANUAL DIFF)2019-01-20 07:17:00 Test Item Value Reference Range Interpretation Comments NEUTROPHILS - REL 78 % (CELLAVISION)(BEAKER) (test code = 2816) LYMPHOCYTES - REL 12 % (CELLAVISION)(BEAKER) (test code = 2817) MONOCYTES - REL 1 % (CELLAVISION)(BEAKER) (test code = 2818) EOSINOPHILS - REL 2 % (CELLAVISION)(BEAKER) (test code = 2819) METAMYELOCYTES - REL 2 % 0-0 H (CELLAVISION)(BEAKER) (test code = 2821) MYELOCYTES - REL 1 % 0-0 H (CELLAVISION)(BEAKER) (test code = 2822) ATYPICAL LYMPHOCYTES - REL 4 % 0-0 H (CELLAVISION)(BEAKER) (test code = 2829) NEUTROPHILS - ABS 7.41 K/ul 1.78-5.38 H (CELLAVISION)(BEAKER) (test code = 2830) LYMPHOCYTES - ABS 1.14 K/ul 1.32-3.57 L (CELLAVISION)(BEAKER) (test code = 2831) MONOCYTES - ABS 0.10 K/uL 0.30-0.82 L (CELLAVISION)(BEAKER) (test code = 2832) EOSINOPHILS - ABS 0.19 K/uL 0.04-0.54 (CELLAVISION)(BEAKER) (test code = 2834) METAMYELOCYTES - ABS 0.19 K/uL 0.00-0.00 H (CELLAVISION)(BEAKER) (test code = 2836) MYELOCYTES-ABS 0.10 K/uL 0.00-0.00 H (CELLAVISION)(BEAKER) (test code = 2837) ATYPICAL LYMPHOCYTES - ABS 0.38 K/uL 0.00-0.00 H (CELLAVISION)(BEAKER) (test code = 2858) TOTAL COUNTED (BEAKER) (test code = 100 1351) RBC MORPHOLOGY (BEAKER) (test code Normal = 762) PLT MORPHOLOGY (BEAKER) (test code Normal = 486) TOXIC GRANULATION (BEAKER) (test Present code = 771) ARTIFACT (CELLAVISION)(BEAKER) Present (test code = 3432) PLATELET CONCENTRATION Decreased (CELLAVISION)(BEAKER) (test code = 3438) Received comment: User comments: Slide comments:[id number] 04:40:00 Test Item Value Reference Range Interpretation Comments PTT (test code = 73017-5) 44.7 22.5- 36.0 seconds H Lab Interpretation (test code = Abnormal 23827-6) [facility] 04:40:00 Test Item Value Reference Range Interpretation Comments PARTIAL THROMBOPLASTIN TIME 44.7 seconds 22.5-36.0 H (BEAKER) (test code = 760) [id number] 04:37:00 Test Item Value Reference Range Interpretation Comments MAGNESIUM (BEAKER) (test code = 1.6 mg/dL 1.6-2.6 627) BASIC METABOLIC [id number] 04:37:00 Test Item Value Reference Range Interpretation Comments SODIUM (BEAKER) 130 meq/L 136-145 L (test code = 381) POTASSIUM (BEAKER) 3.5 meq/L 3.5-5.1 (test code = 379) CHLORIDE (BEAKER) 96 meq/L 98-107 L (test code = 382) CO2 (BEAKER) (test 25 meq/L 22-29 code = 355) BLOOD UREA NITROGEN 16 mg/dL 7-21 (BEAKER) (test code = 354) CREATININE (BEAKER) 0.86 mg/dL 0.57-1.25 (test code = 358) GLUCOSE RANDOM 298 mg/dL 70-105 H (BEAKER) (test code = 652) CALCIUM (BEAKER) 8.5 mg/dL 8.4-10.2 (test code = 697) EGFR (BEAKER) (test 85 mL/min/1.73 ESTIMA CORINNA GFR IS code = 1092) sq m NOT ACCURATE CREATININE CLEARANCE IN PREDICTING GLOMERULAR FILTRATION RATE . ESTIMATED GFR I S NOT APPLICABLE FOR DIALYSIS PATIEN TS. Specimen slightly ictericPOCT-GLUCOSE [id number] 23:26:00 Test Item Value Reference Range Interpretation Comments POC-GLUCOSE METER 244 mg/dL 70-110 H : TESTED A T [facility] ([place]) (test code = JUDE GOFF, 1538) [id number]: Dining Room Cashier/Techni pelon ID = [id number] for PERLA CALVIN [id number] 18:33:00 Test Item Value Reference Range Interpretation Comments PARTIAL THROMBOPLASTIN TIME 54.1 seconds 22.5-36.0 H (BEAKER) (test code = 760) 6 hours after starting heparin infusion and as indicated per sliding scalePOCT- GLUCOSE [id number] 17:00:00 Test Item Value Reference Range Interpretation Comments POC-GLUCOSE METER 96 mg/dL 70-110 : TESTED A T [facility] [address] ([place]) (test code = JUDE GOFF, 1538) [id number]: Dining Room Cashier/Techni pelon ID = [id number] for SHARI LION POCT-GLUCOSE [id number] 11:49:00 Test Item Value Reference Range Interpretation Comments POC-GLUCOSE METER 243 mg/dL 70-110 H : TESTED A T [facility] (BEAKER) (test code = [facility], 1538) [id number]: Dining Room Cashier/Techni pelon ID = [id number] for ZEN GRECO [id number] 11:45:00 Test Item Value Reference Range Interpretation Comments PARTIAL THROMBOPLASTIN TIME 35.9 seconds 22.5-36.0 (BEAKER) (test code = 760) Prior to initiating heparinPOCT-GLUCOSE [id number] 08:17:00 Test Item Value Reference Range Interpretation Comments POC-GLUCOSE METER 129 mg/dL 70-110 H : TESTED A T [facility] (BEAKER) (test code = [facility], 1538) [id number]: Dining Room Cashier/Techni pelon ID = [id number] for LISA GUZMAN CBC W/PLT COUNT & AUTO [id number] 07:30:00 Test Item Value Reference Range Interpretation Comments WHITE BLOOD CELL COUNT (BEAKER) 9.4 K/ L 3.5-10.5 (test code = 775) RED BLOOD CELL COUNT (BEAKER) 4.23 M/ L 4.63-6.08 L (test code = 761) HEMOGLOBIN (BEAKER) (test code = 12.9 GM/DL 13.7-17.5 L 410) HEMATOCRIT (BEAKER) (test code = 36.8 % 40.1-51.0 L 411) MEAN CORPUSCULAR VOLUME (BEAKER) 87.0 fL 79.0-92.2 (test code = 753) MEAN CORPUSCULAR HEMOGLOBIN 30.5 pg 25.7-32.2 (BEAKER) (test code = 751) MEAN CORPUSCULAR HEMOGLOBIN CONC 35.1 GM/DL 32.3-36.5 (BEAKER) (test code = 752) RED CELL DISTRIBUTION WIDTH 14.5 % 11.6-14.4 H (BEAKER) (test code = 412) PLATELET COUNT (BEAKER) (test 116 K/CU MM 150-450 L code = 756) MEAN PLATELET VOLUME (BEAKER) 11.3 fL 9.4-12.4 (test code = 754) NUCLEATED RED BLOOD CELLS 0 /100 WBC 0-0 (BEAKER) (test code = 413) (CELLAVISION MANUAL DIFF)2019-01-19 07:30:00 Test Item Value Reference Range Interpretation Comments NEUTROPHILS - REL 78 % (CELLAVISION)(BEAKER) (test code = 2816) LYMPHOCYTES - REL 10 % (CELLAVISION)(BEAKER) (test code = 2817) MONOCYTES - REL 7 % (CELLAVISION)(BEAKER) (test code = 2818) EOSINOPHILS - REL 4 % (CELLAVISION)(BEAKER) (test code = 2819) ATYPICAL LYMPHOCYTES - REL 1 % 0-0 H (CELLAVISION)(BEAKER) (test code = 2829) NEUTROPHILS - ABS 7.33 K/ul 1.78-5.38 H (CELLAVISION)(BEAKER) (test code = 2830) LYMPHOCYTES - ABS 0.94 K/ul 1.32-3.57 L (CELLAVISION)(BEAKER) (test code = 2831) MONOCYTES - ABS 0.66 K/uL 0.30-0.82 (CELLAVISION)(BEAKER) (test code = 2832) EOSINOPHILS - ABS 0.38 K/uL 0.04-0.54 (CELLAVISION)(BEAKER) (test code = 2834) ATYPICAL LYMPHOCYTES - ABS 0.09 K/uL 0.00-0.00 H (CELLAVISION)(BEAKER) (test code = 2858) TOTAL COUNTED (BEAKER) (test code = 100 1351) RBC MORPHOLOGY (BEAKER) (test code Normal = 762) WBC MORPHOLOGY (BEAKER) (test code Normal = 487) LARGE PLT(BEAKER) (test code = Present 2156) ARTIFACT (CELLAVISION)(BEAKER) Present (test code = 3432) PLATELET CONCENTRATION Decreased (CELLAVISION)(BEAKER) (test code = 3438) Received comment: User comments: Slide comments:[id number] 05:20:00 Test Item Value Reference Range Interpretation Comments MAGNESIUM (BEAKER) (test code = 1.9 mg/dL 1.6-2.6 627) BASIC METABOLIC [id number] 05:20:00 Test Item Value Reference Range Interpretation Comments SODIUM (BEAKER) 133 meq/L 136-145 L (test code = 381) POTASSIUM (BEAKER) 4.2 meq/L 3.5-5.1 (test code = 379) CHLORIDE (BEAKER) 100 meq/L 98-107 (test code = 382) CO2 (BEAKER) (test 26 meq/L 22-29 code = 355) BLOOD UREA NITROGEN 20 mg/dL 7-21 (BEAKER) (test code = 354) CREATININE (BEAKER) 0.81 mg/dL 0.57-1.25 (test code = 358) GLUCOSE RANDOM 103 mg/dL 70-105 (BEAKER) (test code = 652) CALCIUM (BEAKER) 8.8 mg/dL 8.4-10.2 (test code = 697) EGFR (BEAKER) (test 91 mL/min/1.73 ESTIMA CORINNA GFR IS code = 1092) sq m NOT ACCURATE CREATININE CLEARANCE IN PREDICTING GLOMERULAR FILTRATION RATE . ESTIMATED GFR I S NOT APPLICABLE FOR DIALYSIS PATIEN TS. Specimen slightly ictericLactic acid, [id number] 04:27:00 Test Item Value Reference Range Interpretation Comments Lactate, Venous (test code = 2872) 0.8 mmol/L 0.5-2.2 Lab Interpretation (test code = Normal 15423-5) [facility] [id number] 04:27:00 Test Item Value Reference Range Interpretation Comments LACTATE BLOOD VENOUS (2) (BEAKER) 0.8 mmol/L 0.5-2.2 (test code = 2872) POCT-GLUCOSE [id number] 22:51:00 Test Item Value Reference Range Interpretation Comments POC-GLUCOSE METER 84 mg/dL 70-110 : TESTED A T [facility] 6720 (BEAKER) (test code = JUDE GOFF, 1538) 66355: Dining Room Cashier/Techni pelon ID = [id number] for Veronica Clark POCT-GLUCOSE [id number] 17:53:00 Test Item Value Reference Range Interpretation Comments POC-GLUCOSE METER 131 mg/dL 70-110 H : TESTED A T [facility] 6720 (BEAKER) (test code = [facility], 1538) 49925: Dining Room Cashier/Techni pelon ID = [id number] for ERLIN SALGADO POCT-GLUCOSE [id number] 13:26:00 Test Item Value Reference Range Interpretation Comments POC-GLUCOSE METER 197 mg/dL 70-110 H : TESTED A T [facility] 6720 (BEAKER) (test code = [facility], 1538) 35706: Dining Room Cashier/Techni pelon ID = [id number] for Myron Garcia POCT-GLUCOSE [id number] 12:27:00 Test Item Value Reference Range Interpretation Comments POC-GLUCOSE METER 196 mg/dL 70-110 H : TESTED A T [facility] 6720 (BEAKER) (test code [facility], = 1538) 20447: Dining Room Cashier/Techni pelon ID = [id number] for JAIM E MARISABEL, JON POCT-GLUCOSE [id number] 08:00:00 Test Item Value Reference Range Interpretation Comments POC-GLUCOSE METER 193 mg/dL 70-110 H : TESTED A T [facility] 6720 (BEAKER) (test code [facility], = 1538) [id number]: Dining Room Cashier/Techni pelon ID = [id number] for JAIM E MARISABEL, JON [id number] 06:12:00 Test Item Value Reference Range Interpretation Comments MAGNESIUM (BEAKER) (test code = 1.9 mg/dL 1.6-2.6 627) BASIC METABOLIC [id number] 06:12:00 Test Item Value Reference Range Interpretation Comments SODIUM (BEAKER) 134 meq/L 136-145 L (test code = 381) POTASSIUM (BEAKER) 3.9 meq/L 3.5-5.1 (test code = 379) CHLORIDE (BEAKER) 101 meq/L 98-107 (test code = 382) CO2 (BEAKER) (test 27 meq/L 22-29 code = 355) BLOOD UREA NITROGEN 24 mg/dL 7-21 H (BEAKER) (test code = 354) CREATININE (BEAKER) 0.94 mg/dL 0.57-1.25 (test code = 358) GLUCOSE RANDOM 191 mg/dL 70-105 H (BEAKER) (test code = 652) CALCIUM (BEAKER) 8.8 mg/dL 8.4-10.2 (test code = 697) EGFR (BEAKER) (test 77 mL/min/1.73 ESTIMA CORINNA GFR IS code = 1092) sq m NOT ACCURATE CREATININE CLEARANCE IN PREDICTING GLOMERULAR FILTRATION RATE . ESTIMATED GFR I S NOT APPLICABLE FOR DIALYSIS PATIEN TS. Specimen slightly [id number] 04:08:00 Test Item Value Reference Range Interpretation Comments PARTIAL THROMBOPLASTIN TIME 49.1 seconds 22.5-36.0 H (BEAKER) (test code = 760) CBC W/PLT COUNT & AUTO [id number] 03:51:00 Test Item Value Reference Range Interpretation Comments WHITE BLOOD CELL COUNT (BEAKER) 8.6 K/ L 3.5-10.5 (test code = 775) RED BLOOD CELL COUNT (BEAKER) 4.51 M/ L 4.63-6.08 L (test code = 761) HEMOGLOBIN (BEAKER) (test code = 13.7 GM/DL 13.7-17.5 410) HEMATOCRIT (BEAKER) (test code = 39.6 % 40.1-51.0 L 411) MEAN CORPUSCULAR VOLUME (BEAKER) 87.8 fL 79.0-92.2 (test code = 753) MEAN CORPUSCULAR HEMOGLOBIN 30.4 pg 25.7-32.2 (BEAKER) (test code = 751) MEAN CORPUSCULAR HEMOGLOBIN CONC 34.6 GM/DL 32.3-36.5 (BEAKER) (test code = 752) RED CELL DISTRIBUTION WIDTH 14.5 % 11.6-14.4 H (BEAKER) (test code = 412) PLATELET COUNT (BEAKER) (test 120 K/CU MM 150-450 L code = 756) MEAN PLATELET VOLUME (BEAKER) 11.7 fL 9.4-12.4 (test code = 754) NUCLEATED RED BLOOD CELLS 0 /100 WBC 0-0 (BEAKER) (test code = 413) NEUTROPHILS RELATIVE PERCENT 69 % (BEAKER) (test code = 429) LYMPHOCYTES RELATIVE PERCENT 15 % (BEAKER) (test code = 430) MONOCYTES RELATIVE PERCENT 8 % (BEAKER) (test code = 431) EOSINOPHILS RELATIVE PERCENT 2 % (BEAKER) (test code = 432) BASOPHILS RELATIVE PERCENT 1 % (BEAKER) (test code = 437) NEUTROPHILS ABSOLUTE COUNT 5.88 K/ L 1.78-5.38 H (BEAKER) (test code = 670) LYMPHOCYTES ABSOLUTE COUNT 1.29 K/ L 1.32-3.57 L (BEAKER) (test code = 414) MONOCYTES ABSOLUTE COUNT (BEAKER) 0.72 K/ L 0.30-0.82 (test code = 415) EOSINOPHILS ABSOLUTE COUNT 0.17 K/ L 0.04-0.54 (BEAKER) (test code = 416) BASOPHILS ABSOLUTE COUNT (BEAKER) 0.08 K/ L 0.01-0.08 (test code = 417) IMMATURE GRANULOCYTES-RELATIVE 5 % 0-1 H PERCENT (BEAKER) (test code = 2801) [id number] 17:19:00 Test Item Value Reference Range Interpretation Comments ACTIVATED CLOTTING TIME 422 sec Refe rence Range: (BEAKER) (test code = 74-137 seconds, 441) Baseline/TESTED AT [address] [address] 0 POCT-GLUCOSE [id number] 17:11:00 Test Item Value Reference Range Interpretation Comments POC-GLUCOSE METER 187 mg/dL 70-110 H : TESTED A T [facility] 6720 ([facility]) (test code = [facility], 1538) 36383: Dining Room Cashier/Techni pelon ID = [id number] for MA THEW, MINI POCT-GLUCOSE [id number] 07:28:00 Test Item Value Reference Range Interpretation Comments POC-GLUCOSE METER 177 mg/dL 70-110 H : TESTED A T [facility] 67[address] ([facility] (test code = [facility], 1538) 30119: Dining Room Cashier/Techni pelon ID = [id number] for CO RTEZ, AKTJA Type and screen, [id number] 07:03:00 Test Item Value Reference Range Interpretation Comments ABO/RH AUTOMATED (BEAKER) (test A NEGATIVE code = 2260) Ab Scrn (test code = 890-4) [facility]GATIVE [id number] 06:[facility] Test Item Value Reference Range Interpretation Comments MAGNESIUM (BEAKER) (test code = 1.9 mg/dL 1.6-2.6 627) BASIC METABOLIC [id number] 06:53:00 Test Item Value Reference Range Interpretation Comments SODIUM (BEAKER) 134 meq/L 136-145 L (test code = 381) POTASSIUM (BEAKER) 3.7 meq/L 3.5-5.1 (test code = 379) CHLORIDE (BEAKER) 97 meq/L 98-107 L (test code = 382) CO2 (BEAKER) (test 27 meq/L 22-29 code = 355) BLOOD UREA NITROGEN 24 mg/dL 7-21 H (BEAKER) (test code = 354) CREATININE (BEAKER) 0.89 mg/dL 0.57-1.25 (test code = 358) GLUCOSE RANDOM 147 mg/dL 70-105 H (BEAKER) (test code = 652) CALCIUM (BEAKER) 9.4 mg/dL 8.4-10.2 (test code = 697) EGFR (BEAKER) (test 82 mL/min/1.73 ESTIMA CORINNA GFR IS code = 1092) sq m NOT ACCURATE CREATININE CLEARANCE IN PREDICTING GLOMERULAR FILTRATION RATE . ESTIMATED GFR I S NOT APPLICABLE FOR DIALYSIS PATIEN TS. Specimen slightly [id number] 06:14:00 Test Item Value Reference Range Interpretation Comments PARTIAL THROMBOPLASTIN TIME 37.8 seconds 22.5-36.0 H (BEAKER) (test code = 760) Within 24 hours, if on CoumadinProthrombin time/[id number] 06:13:00 Test Item Value Reference Range Interpretation Comments Protime (test code = 14.7 11.9- 14.2 H 5902-2) seconds INR (test code = 1.2 <=5.9 6301-6) BEATRIZ (test code = BEATRIZ) Effective 07/10/2018: PT Reference Range ChangeNew: 11.9-14.2 Previous: 11.7-14.7 RECOMMENDED COUMADIN/WARFARIN INR THERAPY RANGESSTANDARD DOSE: 2.0-3.0 Includes: PROPHYLAXIS for venous thrombosis, systemic embolization; TREATMENT for venous thrombosis and/or pulmonary embolus.HIGH RISK: Target INR is 2.5-3.5 for patients wiht mechanical heart valves. Within 24 hours, if on Coumadin Lab Interpretation Abnormal (test code = 44528-0) [facility]/[id number] 06:13:00 Test Item Value Reference Range Interpretation Comments PROTIME (BEAKER) (test code = 14.7 seconds 11.9-14.2 H 759) INR (BEAKER) (test code = 370) 1.2 <=5.9 Effective 07/10/2018: PT Reference Range ChangeNew: 11.9-14.2 Previous: 11.7- 14.7RECOMMENDED COUMADIN/WARFARIN INR THERAPY RANGESSTANDARD DOSE: 2.0-3.0 Includes: PROPHYLAXIS for venous thrombosis, systemic embolization; TREATMENT for venous thrombosis and/or pulmonary embolus.HIGH RISK: Target INR is2.5-3.5 for patients wiht mechanical heart valves.Within 24 hours, if on CoumadinCBC W/PLT COUNT & AUTO [id number] 06:08:00 Test Item Value Reference Range Interpretation Comments WHITE BLOOD CELL COUNT (BEAKER) 7.3 K/ L 3.5-10.5 (test code = 775) RED BLOOD CELL COUNT (BEAKER) 4.74 M/ L 4.63-6.08 (test code = 761) HEMOGLOBIN (BEAKER) (test code = 14.4 GM/DL 13.7-17.5 410) HEMATOCRIT (BEAKER) (test code = 41.5 % 40.1-51.0 411) MEAN CORPUSCULAR VOLUME (BEAKER) 87.6 fL 79.0-92.2 (test code = 753) MEAN CORPUSCULAR HEMOGLOBIN 30.4 pg 25.7-32.2 (BEAKER) (test code = 751) MEAN CORPUSCULAR HEMOGLOBIN CONC 34.7 GM/DL 32.3-36.5 (BEAKER) (test code = 752) RED CELL DISTRIBUTION WIDTH 14.3 % 11.6-14.4 (BEAKER) (test code = 412) PLATELET COUNT (BEAKER) (test 125 K/CU MM 150-450 L code = 756) MEAN PLATELET VOLUME (BEAKER) 12.4 fL 9.4-12.4 (test code = 754) NUCLEATED RED BLOOD CELLS 0 /100 WBC 0-0 (BEAKER) (test code = 413) NEUTROPHILS RELATIVE PERCENT 67 % (BEAKER) (test code = 429) LYMPHOCYTES RELATIVE PERCENT 18 % (BEAKER) (test code = 430) MONOCYTES RELATIVE PERCENT 8 % (BEAKER) (test code = 431) EOSINOPHILS RELATIVE PERCENT 2 % (BEAKER) (test code = 432) BASOPHILS RELATIVE PERCENT 1 % (BEAKER) (test code = 437) NEUTROPHILS ABSOLUTE COUNT 4.89 K/ L 1.78-5.38 (BEAKER) (test code = 670) LYMPHOCYTES ABSOLUTE COUNT 1.30 K/ L 1.32-3.57 L (BEAKER) (test code = 414) MONOCYTES ABSOLUTE COUNT (BEAKER) 0.56 K/ L 0.30-0.82 (test code = 415) EOSINOPHILS ABSOLUTE COUNT 0.17 K/ L 0.04-0.54 (BEAKER) (test code = 416) BASOPHILS ABSOLUTE COUNT (BEAKER) 0.07 K/ L 0.01-0.08 (test code = 417) IMMATURE GRANULOCYTES-RELATIVE 4 % 0-1 H PERCENT (BEAKER) (test code = 2801) POCT-GLUCOSE [id number] 22:09:00 Test Item Value Reference Range Interpretation Comments POC-GLUCOSE METER 117 mg/dL 70-110 H : TESTED A T [facility] 6720 (BEAKER) (test code = [facility], 153) 24146: Dining Room Cashier/Techni pelon ID = [id number] for EA GLIN, JALISSIA POCT-GLUCOSE [id number] 17:33:00 Test Item Value Reference Range Interpretation Comments POC-GLUCOSE METER 190 mg/dL 70-110 H : TESTED A T [facility] 6720 (BEAKER) (test code = [facility], 1538) 09737: Dining Room Cashier/Techni pelno ID = [id number] for Sandra aviles Ekta POCT-GLUCOSE [id number] 12:13:00 Test Item Value Reference Range Interpretation Comments POC-GLUCOSE METER 205 mg/dL 70-110 H : TESTED A T [facility] 6720 (BEAKER) (test code = [facility], 1538) 52740: Dining Room Cashier/Techni pelon ID = [id number] for GR AVGUILHERME, JACOB POCT-GLUCOSE [id number] 07:50:00 Test Item Value Reference Range Interpretation Comments POC-GLUCOSE METER 134 mg/dL 70-110 H : TESTED A T [facility] 6720 (BEAKER) (test code = [place]OD[place], 1538) 54704: Dining Room Cashier/Techni pelon ID = [id number] for Ekta Alcaraz [id number] 05:35:00 Test Item Value Reference Range Interpretation Comments MAGNESIUM (BEAKER) (test code = 1.9 mg/dL 1.6-2.6 627) BASIC METABOLIC [id number] 05:35:00 Test Item Value Reference Range Interpretation Comments SODIUM (BEAKER) 137 meq/L 136-145 (test code = 381) POTASSIUM (BEAKER) 3.1 meq/L 3.5-5.1 L (test code = 379) CHLORIDE (BEAKER) 101 meq/L 98-107 (test code = 382) CO2 (BEAKER) (test 26 meq/L 22-29 code = 355) BLOOD UREA NITROGEN 19 mg/dL 7-21 (BEAKER) (test code = 354) CREATININE (BEAKER) 0.80 mg/dL 0.57-1.25 (test code = 358) GLUCOSE RANDOM 111 mg/dL 70-105 H (BEAKER) (test code = 652) CALCIUM (BEAKER) 9.1 mg/dL 8.4-10.2 (test code = 697) EGFR (BEAKER) (test 93 mL/min/1.73 ESTIMA CORINNA GFR IS code = 1092) sq m NOT ACCURATE CREATININE CLEARANCE IN PREDICTING GLOMERULAR FILTRATION RATE . ESTIMATED GFR I S NOT APPLICABLE FOR DIALYSIS PATIEN TS. Specimen slightly [id number] 05:17:00 Test Item Value Reference Range Interpretation Comments PARTIAL THROMBOPLASTIN TIME 70.7 seconds 22.5-36.0 H (BEAKER) (test code = 760) CBC W/PLT COUNT & AUTO [id number] 05:14:00 Test Item Value Reference Range Interpretation Comments WHITE BLOOD CELL COUNT (BEAKER) 6.2 K/ L 3.5-10.5 (test code = 775) RED BLOOD CELL COUNT (BEAKER) 4.46 M/ L 4.63-6.08 L (test code = 761) HEMOGLOBIN (BEAKER) (test code = 13.6 GM/DL 13.7-17.5 L 410) HEMATOCRIT (BEAKER) (test code = 38.9 % 40.1-51.0 L 411) MEAN CORPUSCULAR VOLUME (BEAKER) 87.2 fL 79.0-92.2 (test code = 753) MEAN CORPUSCULAR HEMOGLOBIN 30.5 pg 25.7-32.2 (BEAKER) (test code = 751) MEAN CORPUSCULAR HEMOGLOBIN CONC 35.0 GM/DL 32.3-36.5 (BEAKER) (test code = 752) RED CELL DISTRIBUTION WIDTH 14.3 % 11.6-14.4 (BEAKER) (test code = 412) PLATELET COUNT (BEAKER) (test 122 K/CU MM 150-450 L code = 756) MEAN PLATELET VOLUME (BEAKER) 12.8 fL 9.4-12.4 H (test code = 754) NUCLEATED RED BLOOD CELLS 0 /100 WBC 0-0 (BEAKER) (test code = 413) NEUTROPHILS RELATIVE PERCENT 64 % (BEAKER) (test code = 429) LYMPHOCYTES RELATIVE PERCENT 21 % (BEAKER) (test code = 430) MONOCYTES RELATIVE PERCENT 7 % (BEAKER) (test code = 431) EOSINOPHILS RELATIVE PERCENT 2 % (BEAKER) (test code = 432) BASOPHILS RELATIVE PERCENT 1 % (BEAKER) (test code = 437) NEUTROPHILS ABSOLUTE COUNT 3.98 K/ L 1.78-5.38 (BEAKER) (test code = 670) LYMPHOCYTES ABSOLUTE COUNT 1.30 K/ L 1.32-3.57 L (BEAKER) (test code = 414) MONOCYTES ABSOLUTE COUNT (BEAKER) 0.46 K/ L 0.30-0.82 (test code = 415) EOSINOPHILS ABSOLUTE COUNT 0.15 K/ L 0.04-0.54 (BEAKER) (test code = 416) BASOPHILS ABSOLUTE COUNT (BEAKER) 0.06 K/ L 0.01-0.08 (test code = 417) IMMATURE GRANULOCYTES-RELATIVE 4 % 0-1 H PERCENT (BEAKER) (test code = 2801) POCT-GLUCOSE [id number] 21:34:00 Test Item Value Reference Range Interpretation Comments POC-GLUCOSE METER 120 mg/dL 70-110 H : TESTED Domo T [facility] 6720 (BEAKER) (test code = [place], 1538) 66[address]: Dining Room Cashier/Techni pelon ID = [id number] for Cisco cohenAmna POCT-GLUCOSE [id number] 18:06:00 Test Item Value Reference Range Interpretation Comments POC-GLUCOSE METER 157 mg/dL 70-110 H : TESTED [place] [facility] 6720 ([place]) (test code = [place], 1538) 40467: Dining Room Cashier/Techni pelon ID = [id number] for JACOB LOZA Arterial doppler legs [id number] 16:53:20Ejection FractionSLEH ECHO HEARTLAB MKCKESSON CPACSRight Impression1. The common femoral, profunda femoral, superficial femoral, popliteal,posterior tibial and peroneal arteries are patent with calcified plaque andbiphasic doppler waveforms throughout.2. The proximal anterior tibial artery is patent with a monophasic dopplerwaveform.3. The mid- distal posterior tibial artery was not visualized.4. The PT pressure is 165 mmHg with an ZENOBIA of 1.42 (within thenoncompressible range) and the DP pressure is 124 mmHg with an ZENOBIA of 1.07,(within normal range).5. There is decreed flow to the digits by PPG waveforms.6. The TBI was not obtained due to decrease flow by PPG waveforms.Left Impression1. The common femoral, profunda femoral, superficial femoral, popliteal,posterior tibial and peroneal arteries are patent with with calcified plaqueand biphasic doppler waveforms throughout.2. The anterior tibial artery is patent with calcified plaque and monophasicdoppler waveforms throughout.3. There is decreed flow to the digits by PPG waveforms.4. The TBI was not obtained due to decrease flow by PPG waveforms.Conclusions Summary Arterial pressures and Doppler analysis were [...] noncompressible range) and the DP pressure is 124mmHg with an ZENOBIA of 1.07, (within normal [...] ! !PSV !EDV !Waveform ! + + +------- + + + + + + + !Mid Common Femoral ! !78.6 ! !Biphasic ! !86.4 !8.64 !Biphasic ! + + + + + + + + + + !Prox PFA ! !47.1 ! !Biphasic ! !36.1 ! !Biphasic !+ + + + + + + + [...] + + + + + + + ------+ + + !Prox Popliteal ! !24 ! !Biphasic ! !41.3 !8.25 !Biphasic ! + + + + + + + + + + !Dist Popliteal ! !34.2 ! !Biphasic ! !51.5 ! !Biphasic ! + + +---- + + + + + + + !Prox HOSE WRAPPER ! !70.7 ! !Biphasic ! !38.9 !6.68 !Biphasic ! + + + + + + + + + + !Mid HOSE WRAPPER ! !49.1 ! !Biphasic ! !53.8 !4.32 !Biphasic ! + + + + + + + + + + !Dist HOSE WRAPPER ! !46 ! !Biphasic ! !29.9 ! !Biphasic ! + + + + + + + + + + !Prox VEGA ! !29 ! !Monophasic ! !33.4 ! !Monophasic ! + + + + + + + + + + !Dist VEGA ! + + Interface, External Ris In - 01/15/2019 4:53 PM [facility] - Lower Extremity Arterial Duplex Demographics Patient Name KRYSTIAN RUBIN Date of Study 01/15/2019 LIU Age 83 Visit Number [id number] Gender Male Accession Number [id number] Date of 1935 Referring Houston Miranda MD Room Number 1135 Physician Tricot Knitting Machine Operator Pedro Alcocer T Interpreting Romana Chandra Physician ProcedureType of Study: Extremities Arteries: Lower Extremities Arterial Duplex, ARTERIAL DOPPLER LEGS, BILATERAL. Indications for Study:TAVR workup .Patient Status:Routine.Study Location:Vascular Lab.Technical Quality:Adequate visualization.Risk FactorsHistory of Disease+ + -+ +!Diagnosis !Date !Comments !+ + + +!Ot her ! !TAVR !+ + --+ +ImpressionsRight Impression1. The common femoral, profunda femoral, superficial femoral, popliteal,posterior tibial and peroneal arteries are patent with calcified plaque andbiphasic doppler waveforms throughout.2. The proximal anterior tibial artery is patent with a monophasic dopplerwaveform.3. The mid-distal posterior tibial artery was not visualized.4. The PT pressureis 165 mmHg with an ZENOBIA of 1.42 (within thenoncompressible range) and the DP pressure is 124 mmHg with an ZENOBIA of 1.07,(within normal range).5. There is decreed flow to the digits by PPG waveforms.6. The TBI was not obtained due to decrease flow by PPG waveforms.Left Impression1. The common femoral, pro cody femoral, superficial femoral, popliteal,posterior tibial and peroneal arteries are patent withwith calcified plaqueand biphasic doppler waveforms throughout.2. The anterior tibial artery is patent with calcified plaque and monophasicdoppler waveforms throughout.3. There is decreed flow to the digits by PPG waveforms.4. The TBI was not obtained due to [...] in cm/s ; Diameters are measured in cmLE Duplex Measurements Right Left + + +------- + + + + + + + !Location ! !PSV !EDV !Waveform ! !PSV !EDV !Waveform ! + + + + + + + + + + !Mid Common Femoral ! !78.6 ! !Biphasic ! !86.4 !8.64 !Biphasic !+ + + + + + + + [...] + + + + + + + ------+ + + !Dist SFA ! !72.7 ! !Biphasic ! !80.1 !7.07 !Biphasic ! + + + + + + + + + + !Prox Popliteal ! !24 ! !Biphasic ! !41.3 !8.25 !Biphasic ! + + +---- + + + + + + + !Dist Popliteal ! !34.2 ! !Biphasic ! !51.5 ! !Biphasic ! + + + + + + + + + + !Prox HOSE WRAPPER ! !70.7 ! !Biphasic ! !38.9 !6.68 !Biphasic ! + + + + + + + + + + !Mid HOSE WRAPPER ! !49.1 ! !Biphasic ! !53.8 !4.32 !Biphasic ! + + + + + + + + + + !Dist HOSE WRAPPER ! !46 ! !Biphasic ! !29.9 ! !Biphasic ! + + + + + + + + + + !Prox VEGA ! !29 ! !Monophasic ! !33.4 ! !Monophasic ! + + + + + + +--------- ---------+ + + !Dist VEGA ! + +[facility] do[facility] [id number] 16:53:04Ejection FractionSLEH ECHO HEARTLAB MKCKESSON CPACSRight Impression1. There is <50% diameter reduc tion (approximately 43% by 2-D measurement)in the internal carotid artery with a peak velocity of 80/15 cm/sec andheterogeneous plaque.2. There is non-occluding plaque in the external carotid artery.3.There is non-occluding plaque in the common carotid artery.4. The vertebral artery flow is antegradeand normal.Left Impression1. There is <50% diameter reduction (approximately 46% by 2-D measurement)in the internal carotid artery with a peak velocity of 35/8 cm/sec andheterogeneous plaque.2. There is non-occluding plaque in the external carotid artery.3. There is non-occluding plaque in the common carotid artery.4. The vertebral artery flow is antegrade and [...] Diameters are measured in cm Carotid Right Juani surements+---------+----+----+-----+ + +------- ----+!Location !PSV !EDV !Angle!%Stenosis 2D !%Stenosis Doppler !Tortuosity !+---------+----+----+-----+ + + +!Prox CCA !72.7!15.8!60 ! ! ! !+---------+----+----+-----+ + + +!Di st CCA !58.6!22.3!60 ! ! ! !+---------+----+----+-----+ + + +!Bulb !52.8!9.97!60 ! ! ! !+---------+----+----+-----+ + + +!Pr ox ICA !80.3!15.8!60 !43% !<50% ! !+---------+----+----+-----+--------- ----+ + +!Dist ICA !58.6!15.8!60 ! ! ! !+---------+----+----+-----+ + + +!Pr ox ECA!73.3!13.5!60 ! ! ! !+---------+----+----+-----+-------- -----+ + +!Vertebral!39.9!14.7!60 ! ! ! !+---------+----+----+-----+ + + + - Additional Measurements:ICAPSV/CCAPSV 1.37.ICAEDV/CCAEDV 1. Carotid Left Measurements+---------+----+---- +-----+ + + +!Location !PSV !EDV !Angle!%Stenosis 2D !%Stenosis Doppler !Tortuosity !+---------+----+----+-----+ + +------ -----+!Prox CCA !62.7!12.9!60 ! ! ! !+---------+----+--- -+-----+ + + +!Dist CCA !54.5!17 !60 ! ! ! !+---------+----+----+-----+ + +----- ------+!Prox ICA !35.8!8.25!60 !46% !<50% ! !+---------+---- +----+-----+ + + +!Dist ICA !38.1!7.46!60 !! ! !+---------+----+----+-----+ + +- +!Prox ECA !35 !8.25!60 ! ! ! !+---------+--- -+----+-----+ + + +!Vertebral!32.6!10 .2!60 ! ! ! !+---------+----+----+-----+ + + + - Additional Measurements:ICAPSV/CCAPSV 0.7.ICAEDV/CCAEDV 0.64. Interface, External Ris In - 01/15/2019 4:53 PM [facility] - Carotid Duplex Study Demographics Patient Name KRYSTIAN RUBIN Date of Study 01/15/2019 LIU Age 83 Visit Number [id number] Gender Male Date of 1935 Referring Houston Miranda MD Room Number 1135 Physician [place] Knitting Machine Operator Pedro Alcocer T Interpreting Romana Chandra Physician ProcedureType of Study: Cerebral: Carotid, CAROTID DOPPLER, BILATERAL. Indications for Study:TAVR.Patient Status:Routine.Study Location:Vascular Lab.Technical Quality:Adequate visualization.Risk FactorsHistory of Disease+ +- + +!Diagnosis !Date !Comments !+ + + +!Ot her ! !TAVR !+ + + +ImpressionsRight Impression1. There is <50% diameter reduction (approximately 43% by 2-D measurement)in the internal carotid artery with a peak velocity of 80/15 cm/sec andheterogeneous plaque.2. There is non-occluding plaque in the external carotid artery.3. There is non-occluding plaque in the common carotid artery.4. The vertebral artery flow is antegrade and normal.Left Impression1. There is <50% diameter reduction (approximately 46% by 2-D measurement)in the internal carotid artery with a peak velocity of 35/8 cm/sec andheterogeneous plaque.2. There is non- occluding plaque in the external carotid artery.3. There is non-occluding plaque in the common carotid artery.4. The vertebral artery flow is antegrade and normal. Conclusions SummaryCarotid duplex scanning and color flow imaging were performed bilaterally. The arteries were adequately visualized. The bilateral internal carotid arteries had <50% hemodynamically insignificant stenosis (approximately 43% by 2-D measurement on the right, approximately 46% by 2-D measurement on theleft) with heterogeneous plaque. The vertebral artery flow was antegrade and normal bilaterally. Signature Velocities are measured in cm/s ; Diameters are measured in cmCarotid Right Measurements+---------+----+----+-----+ + +---- -------+!Location!PSV !EDV !Angle!%Stenosis 2D !%Stenosis Doppler !Tortuosity !+---------+----+----+-----+-------- -----+ + +!Prox CCA !72.7!15.8!60 ! ! ! !+---------+----+----+-----+ + + +!Di st CCA !58.6!22.3!60 ! ! ! !+---------+----+----+-----+------- ------+ + +!Bulb !52.8!9.97!60 ! ! ! !+---------+----+----+-----+ + + +!Pr ox ICA !80.3!15.8!60 !43% !<50% ! !+---------+----+----+-----+--- + + +!Dist ICA !58.6!15.8!60 ! ! ! !+---------+----+----+-----+ + + +!Pr ox ECA !73.3!13.5!60 ! ! ! !+---------+----+----+-----+-- + + +!Vertebral!39.9!14.7!60 ! ! ! !+---------+----+----+-----+ + + + - Additional Measurements:ICAPSV/CCAPSV 1.37.ICAEDV/CCAEDV 1.Carotid Left Measurements+---------+----+ ----+-----+ + + +!Location !PSV !EDV !Angle!%Stenosis 2D !%Stenosis Doppler !Tortuosity !+---------+----+----+-----+ + +-- ---------+!Prox CCA !62.7!12.9!60 ! ! ! !+---------+---- +----+-----+ + + +!Dist CCA !54.5!17 !60 !! ! !+---------+----+----+-----+ + +- +!Prox ICA !35.8!8.25!60 !46% !<50% ! !+---------+ ----+----+-----+ + + +!Dist ICA !38.1!7.46!60 ! ! ! !+---------+----+----+-----+ + --+ +!Prox ECA !35 !8.25!60 ! ! ! !+--------- +----+----+-----+ + + +!Vertebral!32. 6!10.2!60 ! ! ! !+---------+----+----+-----+ + + + - Additional Measurements:ICAPSV/CCAPSV 0.7.ICAEDV/CCAEDV 0.64.[facility]PO[facility]GLU[facility]SE [id number] 15:27:00 Test Item Value Reference Range Interpretation Comments POC-GLUCOSE METER 156 mg/dL 70-110 H : TESTED A T [facility] 6720 ([place]) (test code = JUDE RODRIGUEZ ME, 1538) [address]: Dining Room Cashier/Techni pelon ID = [id number] for JACOB LOZA CT, CTA [id number] 14:11:00Anesthesia:->NoneAddendum BeginsREPORT STATUS:A Addendum: I agree with the previously described non vascular findings by Dr. Yu. Signed: Elmer Sotelo MDReport Verified Date/Time: 01/15/201914:11:09 Reading Location: [place] [address] Angio Body Reading RoomAddendum EndsFINAL REPORT CT angiography of the thoracoabdominal aorta and pelvic arteries, 14 January 2019 INDICATION: This is a 83 year old male with aortic stenosis, presents for preprocedure TAVR assessment. TECHNIQUE: Spiral acquisition before and during intravenous contrast administration using a Siemens multidetector CT scanner. Images were obtained before and during the dynamic passage of intravenous contrast material. Multi-planar 3-D volume-rendering reconstruction was performed using an independent workstation interactively by the interpreting physician as well as the 3-D specialist for optimal visualisation of the thoracoabdominal aorta, the pelvic arteries as well as its proximal branches. Pleaserefer to the contrast sheet scanned in the EPIC system for the amount and route of contrast given. Th is exam was performed according to our departmental dose-optimisation programme, which includes automated exposure control, adjustment of the mA and/or kV according to patient size and/or use of iterative reconstruction technique. Dose modulation, iterative reconstruction, and/or weight based adjustment of the mA/kV was utilized to reduce the radiation dose to as low as reasonably achievable. FINDINGS: VASCULAR: The pericardium appears unremarkable. No pericardial effusion is identified. The central pulmonary artery is normal in calibre. Assessment is limited. The cardiac chambers demonstrate normal atrioventricular and ventriculoarterial concordance, and systemic and pulmonary venous return. Theleft ventricle is normal in size. Left atrial enlargement is identified. Mild calcification is identified and the tip of the anterior mitral valve leaflet. The coronary artery origins are normal and diffuse coronary artery calcification versus stent is identified in the LAD territory. There could be scattered calcific and LCx and RCA territories. coronary calcifications are seen. Patient has a diagnosis of aortic stenosis. The aortic valve is tricuspid. The aortic Agatston score is 5712. The aortic valve area is 64 mm2. The location of aortic valvular calcification can be seen in reformatted data set sent to PACS. Regarding the aorta, there is minimal Consultation seen in the aortic root and ascending thoracic aorta is free of calcification. The transverse arch and descending thoracic aorta has mild scattered calcification identified. The abdominal aorta has mild calcific and noncalcific ather osclerosis present. No aneurysmal dilation is identified. The mid ascending thoracic aorta measure approximately 3.7 cm in diameter. There is no evidence of acute aortic pathology, specifically, there is no dissection, intramural hematoma, or contained rupture. The arch vessel branching pattern is normal and the visualized arch vessels are widely patent proximally. The left subclavian artery has mild calcification identified proximally. At image 20, it measures 7 to 8 mm in diameter. The right subclavian artery has mild calcific and noncalcific atherosclerosis seen proximally. The minimum diameterproximally, is approximately 7.4 x 5.8 mm in diameter at image 83. There are single left and right renal arteries that are widely patent; nonobstructive calcification is seen at the takeoff of the right renal arteries. The coeliac axis, SMA, and ZAFAR are widely patent. Diffuse calcification is seen along the pathway splenic artery. The common iliac, external iliac, common femoral, and the visualized s uperficial femoral arteries, bilaterally, are widely patent with no obstructive lesion identified. Scattered calcification is identified with no obstructive lesion seen. See dimensions below for details. Dimensions that may be helpful for TAVR as follows: Mild calcification is seen in the aortic root and ascending thoracic aorta is free of calcification. The major and minor aortic annulus diameter measures 30.5 and 22.6 mm, respectively. The aortic annulus perimeter measured 83 mm and the cross-sectional area measures 528 mm2. The aortic annulus diameter at the traditional LVOT and coronal LVOT measures 23.7 and 27.8 mm, respectively. For reference purpose, per COLL[employer] S3 brochure, recommendation are as follows: CT area between 273 to 345 mm2 (20 mm valve); 338 to 430 mm2 (23 mm valve); 430 to 546 mm2 (26 mm valve); 540 to 683 mm2 (29 mm valve). For reference purpose, per [employer] Ev[employer] R brochure, recommendation are as follows: CT perimeter between 56.5-62.8 mm (23 mm valve); 62.8-72.3 mm (26 mm valve); 72.3-81.7 mm (29 mm valve); and 81.7-94.2. mm (34 mm valve). For reference purpose, per Molly Edge marce, recommendation are as follows: 23mm valve is recommended for CT perimeter between 62.8-72.3 mm; diameter between 20- 23 mm; or area between 314-415.5 mm2. For 25mm valve, it is recommended for CT perimeter between 72.3-78.5 mm; diameter between 23-25 mm; or area between 415.5-490.9 mm2. For 27mm valve, it is recommended for CT perimeter between 78.5-84.8 mm; diameter between 25-27mm; or area between 490.9-572.6 mm2. Agatston Score is 5712. The aortic valve area is 64 mm2. Thedistance between the take off of the RCA and the annulus (systole): 14.2 mmThe distance between the take off of the LM and the annulus (systole): 14.0 mm The sinus of Valsalva diameter, RCC (systole): 35.3 mmThe sinus of Valsalva diameter, LCC (systole): 38.7 mmThe sinus of Valsalva diameter, NCC (systole): 38.8 mm The sinotubular junction measures, 32.6 x 32.9 mm. The aortic root angulation measures 41.7 degrees. The minimal and perpendicular abdominal aortic diameter measures 18.2 x 17.3 mm, respectively. There is no evidence of thoracoabdominal aortic aneurysm or stent placement present. Thereis mild ectasia seen in the mid ascending thoracic aorta that measure 4.2 x 4.1 cm in diameter. The minimum and the perpendicular left common iliac artery measures 9.5 and 9.7 mm, respectively with mild tortuosity and mild calcific atherosclerosis present. The minimum and the perpendicular left external iliac artery measures 9 and 10 mm, respectively with [id number] tortuosity and minimal calcific atherosclerosis present. The minimum and the perpendicular left femoral artery measures 7.0 and 9.2 mm, respectively with mild tortuosity and mild calcific atherosclerosis present. The minimumand the perpendicular right common iliac artery measures 7.0 and 10.1 mm, respectively with mild tortuosity and mild to moderate calcific atherosclerosis present; localised atherosclerotic ulceration is identified, at image 249. The minimum and the perpendicular right external iliac artery measures9.3 and 10.7 mm, respectively with unremarkable tortuosity and minimal calcific atherosclerosis present. The minimum and the perpendicular right femoral artery measures 7.7 and 8.3 mm, respectively with minimal tortuosity and no calcific atherosclerosis present. NON-VASCULAR: The visualised thyroid gland is unremarkable. The chest wall and mediastinum appear normal. No significant adenopathy is seen. In the lung windows, no endobronchial lesion is identified. Mild to moderate bibasal pleural effusions identified, with associated atelectatic changes present. Pulmonary vasculature is prominent suggesting underlying cardiac congestion. Correlate with clinical examination. Calcified pleural plaqueis seen, in the left, at image 216. Calcified nodule is seen, in the left lung, at image 560 representing underlying granulomatous disease. In the right apex, scar nodule is identified at image 33. An addendum dictated thereafter, if needed. Small nodule is identified in the anterior aspect of the right middle lobe, measure 4 mm, at image 456. In addition, nodular opacity is seen, measure 6 mm, at image 458, along the fissure of the right lung. No prior examination is available for comparison. In the abdomen, the liver and spleen appears unremarkable no acute pathology is identified. No abnormal enhancing structure is seen. In the AP orientation, the spleen is prominent measure approximately 15 cm. Clinical significance of this finding is uncertain. The pancreas appears unremarkable. No obvious gallstone is identified, though there could be focal calcification identified in the gallbladder wall,at image 121 of the precontrast series. No acute renal pathology is seen and no hydronephrosis or perirenal fluid collection is identified. The left adrenal gland is unremarkable. The right adrenal gland could be mildly prominent/nodular. Bowel is not well assessed by CT angiography as enteric contrast is not given. No obvious bowel dilation is identified. Scattered colonic diverticulum is seen with no inflammatory changes present. Small bilateral fat-containing inguinal hernia is identified. The prostate is prominent. The bladder appears grossly unremarkable. Superficial wound is identified in theright groin suggesting prior catheterisation and associated inflammatory changes are seen in the right groin with no haematoma or extravasation of contrast identified. No free air free flow seen abdomen pelvis and no significant retroperitoneal adenopathy is identified. In the bony windows, no acute bony pathology is seen. Some degenerative changes is noted. CONCLUSIONS: 1. Patient has a diagnosis of aortic stenosis. The aortic valve is tricuspid. The aortic Agatston Score is over 5700 and aortic valve area is 64 mm2. No mitral annular calcification is seen and tiny focal calcification seen along the anterior leaflet of the mitral valve. Minimal calcification is identified the level of the aortic root. Dimensions that may be helpful for TAVR as described above. 2. Coronary artery origins arenormal. Calcification versus stent is present in the LAD territory. 3. Mild to moderate bibasal pleural effusion. The central pulmonary artery is at the upper limits of normal in size. Pulmonary vasculature is prominent suggesting underlying cardiac congestion. Evidence of prior granulomatous disease, and noncalcified nodules are seen that represent a spectrum of underlying granulomatous disease. Nodular noncalcified nodule is 6 mm along the fissure of the right lung. No prior examination is available for comparison. Professional recommendation as follows: Nodule Size 6-8 mm Low-Risk Patient: CT at 3-[address] at 18-24 monthsNodule Size 6-8 mm High-Risk Patient: CT at 3-6 months then at 18-24 months 4. Other findings as described above. 5. An addendum will be dictated regarding the non- vascular findings by the Warehouse Clerk Radiologist. Signed: Sudarshan Yu Verified Date/Time: 01/14/2019 18:44:15 02:11 PMCT, CTA, [id number] 14:11:00 Addendum BeginsREPORT STATUS:A Addendum: I agree with the previously described non vascular findings by Dr. Yu. Signed: Elmer Sotelo Verified Date/Time: 01/15/201914:11:09 Reading Location: [place] [address] Angio Body Reading RoomAddendum EndsFINAL REPORT CT angiography of the thoracoabdominal aorta and pelvic arteries, 14 January 2019 INDICATION: This is a 83 year old male with aortic stenosis, presents for preprocedure TAVR assessment. TECHNIQUE: Spiral acquisition before and during intravenous contrast administration using a Siemens multidetector CT scanner. Images were obtained before and during the dynamic passage of intravenous contr ast material. Multi-planar 3-D volume-rendering reconstruction was performed using an independent workstation interactively by the interpreting physician as well as the 3-D specialist for optimal visualisation of the thoracoabdominal aorta, the pelvic arteries as well as its proximal branches. Pleaserefer to the contrast sheet scanned in the EPIC system for the amount and route of contrast given. This exam was performed according to our departmental dose-optimisation programme, which includes automated exposure control, adjustment of the mA and/or kV according to patient size and/or use of iterative reconstruction technique. Dose modulation, iterative reconstruction, and/or weight based adjustment of the mA/kV was utilized to reduce the radiation dose to as low as reasonably achievable. FINDINGS: VASCULAR: The pericardium appears unremarkable. No pericardial effusion is identified. The central pulmonary artery is normal in calibre. Assessment is limited. The cardiac chambers demonstrate normal atrioventricular and ventriculoarterial concordance, and systemic and pulmonary venous return. Theleft ventricle is normal in size. Left atrial enlargement is identified. Mild calcification is identified and the tip of the anterior mitral valve leaflet. The coronary artery origins are normal and diffuse coronary artery calcification versus stent is identified in the LAD territory. There could be scattered calcific and LCx and RCA territories. coronary calcifications are seen. Patient has a diagnosis of aortic stenosis. The aortic valve is tricuspid. The aortic Agatston score is 5712. The aortic valve area is 64 mm2. The location of aortic valvular calcification can be seen in reformatted data set sent to PACS. Regarding the aorta, there is minimal Consultation seen in the aortic root and ascending thoracic aorta is free of calcification. The transverse arch and descending thoracic aorta has mild scattered calcification identified. The abdominal aorta has mild calcific and noncalcific atherosclerosis present. No aneurysmal dilation is identified. The mid ascending thoracic aorta measure approximately 3.7 cm in diameter. There is no evidence of acute aortic pathology, specifically, there is no dissection, intramural hematoma, or contained rupture. The arch vessel branching pattern is normal and the visualized arch vessels are widely patent proximally. The left subclavian artery has mild calcification identified proximally. At image 20, it measures 7 to 8 mm in diameter. The right subclavian artery has mild calcific and noncalcific atherosclerosis seen proximally. The minimum diameterproximally, is approximately 7.4 x 5.8 mm in diameter at image 83. There are single left and right renal arteries that are widely patent; nonobstructive calcification is seen at the takeoff of the right renal arteries. The coeliac axis, SMA, and ZAFAR are widely patent. Diffuse calcification is seen along the pathway splenic artery. The common iliac, external iliac, common femoral, and the visualized s uperficial femoral arteries, bilaterally, are widely patent with no obstructive lesion identified. Scattered calcification is identified with no obstructive lesion seen. See dimensions below for details. Dimensions that may be helpful for TAVR as follows: Mild calcification is seen in the aortic root and ascending thoracic aorta is free of calcification. The major and minor aortic annulus diameter measures 30.5 and 22.6 mm, respectively. The aortic annulus perimeter measured 83 mm and the cross-sectional area measures 528 mm2. The aortic annulus diameter at the traditional LVOT and coronal LVOT measures 23.7 and 27.8 mm, respectively. For reference purpose, per [employer] S3 brochure, recommendation are as follows: CT area between 273 to 345 mm2 (20 mm valve); 338 to 430 mm2 (23 mm valve); 430 to 546 mm2 (26 mm valve); 540 to 683 mm2 (29 mm valve). For reference purpose, per [employer] Evol[employer] R brochure, recommendation are as follows: CT perimeter between 56.5-62.8 mm (23 mm valve); 62.8-72.3 mm (26 mm valve); 72.3-81.7 mm (29 mm valve); and 81.7-94.2. mm (34 mm valve). For reference purpose, per [employer] brochure, recommendation are as follows: 23mm valve is recommended for CT perimeter between 62.8-72.3 mm; diameter between 20- 23 mm; or area between 314-415.5 mm2. For 25mm valve, it is recommended for CT perimeter between 72.3-78.5 mm; diameter between 23-25 mm; or area between 415.5-490.9 mm2. For 27mm valve, it is recommended for CT perimeter between 78.5-84.8 mm; diameter between 25-27mm; or area between 490.9-572.6 mm2. Agatston Score is 5712. The aortic valve area is 64 mm2. Thedistance between the take off of the RCA and the annulus (systole): 14.2 mmThe distance between the take off of the LM and the annulus (systole): 14.0 mm The sinus of Valsalva diameter, RCC (systole): 35.3 mmThe sinus of Valsalva diameter, LCC (systole): 38.7 mmThe sinus of Valsalva diameter, NCC (systole): 38.8 mm The sinotubular junction measures, 32.6 x 32.9 mm. The aortic root angulation measures 41.7 degrees. The minimal and perpendicular abdominal aortic diameter measures 18.2 x 17.3 mm, respectively. There is no evidence of thoracoabdominal aortic aneurysm or stent placement present. Thereis mild ectasia seen in the mid ascending thoracic aorta that measure 4.2 x 4.1 cm in diameter. The minimum and the perpendicular left common iliac artery measures 9.5 and 9.7 mm, respectively with mild tortuosity and mild calcific atherosclerosis present. The minimum and the perpendicular left external iliac artery measures 9 and 10 mm, respectively with [id number] tortuosity and minimal calcific atherosclerosis present. The minimum and the perpendicular left femoral artery measures 7.0 and 9.2 mm, respectively with mild tortuosity and mild calcific atherosclerosis present. The minimumand the perpendicular right common iliac artery measures 7.0 and 10.1 mm, respectively with mild tortuosity and mild to moderate calcific atherosclerosis present; localised atherosclerotic ulceration is identified, at image 249. The minimum and the perpendicular right external iliac artery measures9.3 and 10.7 mm, respectively with unremarkable tortuosity and minimal calcific atherosclerosis present. The minimum and the perpendicular right femoral artery measures 7.7 and 8.3 mm, respectively with minimal tortuosity and no calcific atherosclerosis present. NON-VASCULAR: The visualised thyroid gland is unremarkable. The chest wall and mediastinum appear normal. No significant adenopathy is seen. In the lung windows, no endobronchial lesion is identified. Mild to moderate bibasal pleural effusions identified, with associated atelectatic changes present. Pulmonary vasculature is prominent suggesting underlying cardiac congestion. Correlate with clinical examination. Calcified pleural plaqueis seen, in the left, at image 216. Calcified nodule is seen, in the left lung, at image 560 representing underlying granulomatous disease. In the right apex, scar nodule is identified at image 33. An addendum dictated thereafter, if needed. Small nodule is identified in the anterior aspect of the right middle lobe, measure 4 mm, at image 456. In addition, nodular opacity is seen, measure 6 mm, at image 458, along the fissure of the right lung. No prior examination is available for comparison. In the abdomen, the liver and spleen appears unremarkable no acute pathology is identified. No abnormal enhancing structure is seen. In the AP orientation, the spleen is prominent measure approximately 15 cm. Clinical significance of this finding is uncertain. The pancreas appears unremarkable. No obvious gallstone is identified, though there could be focal calcification identified in the gallbladder wall,at image 121 of the precontrast series. No acute renal pathology is seen and no hydronephrosis or perirenal fluid collection is identified. The left adrenal gland is unremarkable. The right adrenal gland could be mildly prominent/nodular. Bowel is not well assessed by CT angiography as enteric contrast is not given. No obvious bowel dilation is identified. Scattered colonic diverticulum is seen with no inflammatory changes present. Small bilateral fat-containing inguinal hernia is identified. The prostate is prominent. The bladder appears grossly unremarkable. Superficial wound is identified in theright groin suggesting prior catheterisation and associated inflammatory changes are seen in the right groin with no haematoma or extravasation of contrast identified. No free air free flow seen abdomen pelvis and no significant retroperitoneal adenopathy is identified. In the bony windows, no acute bony pathology is seen. Some degenerative changes is noted. CONCLUSIONS: 1. Patient has a diagnosis of aortic stenosis. The aortic valve is tricuspid. The aortic Agatston Score is over 5700 and aortic valve area is 64 mm2. No mitral annular calcification is seen and tiny focal calcification seen along the anterior leaflet of the mitral valve. Minimal calcification is identified the level of the aortic root. Dimensions that may be helpful for TAVR as described above. 2. Coronary artery origins arenormal. Calcification versus stent is present in the LAD territory. 3. Mild to moderate bibasal pleural effusion. The central pulmonary artery is at the upper limits of normal in size. Pulmonary vasculature is prominent suggesting underlying cardiac congestion. Evidence of prior granulomatous disease, and noncalcified nodules are seen that represent a spectrum of underlying granulomatous disease. Nodular noncalcified nodule is 6 mm along the fissure of the right lung. No prior examination is available for comparison. Professional recommendation as follows: Nodule Size 6-8 mm Low-Risk Patient: CT at 3-[address] at 18-24 monthsNodule Size 6-8 mm High-Risk Patient: CT at 3-6 months then at 18-24 months 4. Other findings as described above. 5. An addendum will be dictated regarding the non- vascular findings by the Warehouse Clerk Radiologist. Signed: Sudarshan Yu Verified Date/Time: 01/14/2019 18:44:15 02:11 PMPOCT-GLUCOSE [id number] 12:29:00 Test Item Value Reference Range Interpretation Comments POC-GLUCOSE METER 182 mg/dL 70-110 H : TESTED A T [facility] 6720 (BEAKER) (test code = [employer] [facility], 1538) [id number]: Dining Room Cashier/Techni pelon ID = [id number] for Ekta Alcaraz [id number] 09:51:00 Test Item Value Reference Range Interpretation Comments PARTIAL THROMBOPLASTIN TIME 74.2 seconds 22.5-36.0 H (BEAKER) (test code = 760) Hemoglobin [id number] 09:03:00 Test Item Value Reference Range Interpretation Comments Hemoglobin A1C (test code = 4548-4) 8.3 % 4.3-6.1 H Lab Interpretation (test code = Abnormal 60151-9) [id number] 09:03:00 Test Item Value Reference Range Interpretation Comments HEMOGLOBIN A1C (BEAKER) (test code = 8.3 % 4.3-6.1 H 368) POCT-GLUCOSE [id number] 07:57:00 Test Item Value Reference Range Interpretation Comments POC-GLUCOSE METER 175 mg/dL 70-110 H : TESTED A T [facility] 6720 (BEAKER) (test code = [facility] [employer] [facility], 1538) [id number]: Dining Room Cashier/Techni pelon ID = [id number] for Ekta Alcaraz Occult blood, [id number] 06:02:00 Test Item Value Reference Range Interpretation Comments Occult blood (test code = 2335-8) Positive Negative A Lab Interpretation (test code = Abnormal 45708-0) [facility] [id number] 06:02:00 Test Item Value Reference Range Interpretation Comments FECAL OCCULT BLOOD (BEAKER) (test Positive Negative A code = 618) [id number] 02:45:00 Test Item Value Reference Range Interpretation Comments MAGNESIUM (BEAKER) (test code = 1.7 mg/dL 1.6-2.6 627) BASIC METABOLIC [id number] 02:45:00 Test Item Value Reference Range Interpretation Comments SODIUM (BEAKER) 132 meq/L 136-145 L (test code = 381) POTASSIUM (BEAKER) 3.4 meq/L 3.5-5.1 L (test code = 379) CHLORIDE (BEAKER) 101 meq/L 98-107 (test code = 382) CO2 (BEAKER) (test 23 meq/L 22-29 code = 355) BLOOD UREA NITROGEN 18 mg/dL 7-21 (BEAKER) (test code = 354) CREATININE (BEAKER) 0.76 mg/dL 0.57-1.25 (test code = 358) GLUCOSE RANDOM 158 mg/dL 70-105 H (BEAKER) (test code = 652) CALCIUM (BEAKER) 8.6 mg/dL 8.4-10.2 (test code = 697) EGFR (BEAKER) (test 98 mL/min/1.73 ESTIMA CORINNA GFR IS code = 1092) sq m NOT ACCURATE CREATININE CLEARANCE IN PREDICTING GLOMERULAR FILTRATION RATE . ESTIMATED GFR I S NOT APPLICABLE FOR DIALYSIS PATIEN TS. Specimen slightly [id number] 02:33:00 Test Item Value Reference Range Interpretation Comments PARTIAL THROMBOPLASTIN TIME 71.0 seconds 22.5-36.0 H (BEAKER) (test code = 760) CBC W/PLT COUNT & AUTO [id number] 02:21:00 Test Item Value Reference Range Interpretation Comments WHITE BLOOD CELL COUNT (BEAKER) 6.1 K/ L 3.5-10.5 (test code = 775) RED BLOOD CELL COUNT (BEAKER) 4.27 M/ L 4.63-6.08 L (test code = 761) HEMOGLOBIN (BEAKER) (test code = 13.1 GM/DL 13.7-17.5 L 410) HEMATOCRIT (BEAKER) (test code = 37.6 % 40.1-51.0 L 411) MEAN CORPUSCULAR VOLUME (BEAKER) 88.1 fL 79.0-92.2 (test code = 753) MEAN CORPUSCULAR HEMOGLOBIN 30.7 pg 25.7-32.2 (BEAKER) (test code = 751) MEAN CORPUSCULAR HEMOGLOBIN CONC 34.8 GM/DL 32.3-36.5 (BEAKER) (test code = 752) RED CELL DISTRIBUTION WIDTH 14.6 % 11.6-14.4 H (BEAKER) (test code = 412) PLATELET COUNT (BEAKER) (test 106 K/CU MM 150-450 L code = 756) MEAN PLATELET VOLUME (BEAKER) 11.4 fL 9.4-12.4 (test code = 754) NUCLEATED RED BLOOD CELLS 0 /100 WBC 0-0 (BEAKER) (test code = 413) NEUTROPHILS RELATIVE PERCENT 70 % (BEAKER) (test code = 429) LYMPHOCYTES RELATIVE PERCENT 15 % (BEAKER) (test code = 430) MONOCYTES RELATIVE PERCENT 7 % (BEAKER) (test code = 431) EOSINOPHILS RELATIVE PERCENT 2 % (BEAKER) (test code = 432) BASOPHILS RELATIVE PERCENT 1 % (BEAKER) (test code = 437) NEUTROPHILS ABSOLUTE COUNT 4.23 K/ L 1.78-5.38 (BEAKER) (test code = 670) LYMPHOCYTES ABSOLUTE COUNT 0.91 K/ L 1.32-3.57 L (BEAKER) (test code = 414) MONOCYTES ABSOLUTE COUNT (BEAKER) 0.45 K/ L 0.30-0.82 (test code = 415) EOSINOPHILS ABSOLUTE COUNT 0.13 K/ L 0.04-0.54 (BEAKER) (test code = 416) BASOPHILS ABSOLUTE COUNT (BEAKER) 0.07 K/ L 0.01-0.08 (test code = 417) IMMATURE GRANULOCYTES-RELATIVE 5 % 0-1 H PERCENT (BEAKER) (test code = 2801) POCT-GLUCOSE [id number] 22:13:00 Test Item Value Reference Range Interpretation Comments POC-GLUCOSE METER 141 mg/dL 70-110 H : TESTED A T [facility] 6720 (BEAKER) (test code = [facility] [place], 1538) [address]: Dining Room Cashier/Techni pelon ID = [id number] for LUIZA LÓPEZ [id number] 20:10:00 Test Item Value Reference Range Interpretation Comments PARTIAL THROMBOPLASTIN TIME 61.0 seconds 22.5-36.0 H (BEAKER) (test code = 760) CTA abdomen & [id number] 18:44:00Interface, External Ris In - 01/15/2019 2:13 PM CSTAddendum BeginsREPORT STATUS:A Addendum: I agree with the previously described non vascular findings by Dr. Yu. Signed: Elmer Sotelo MDReport Verified Date/Time: 01/15/2019 14:11:09 Reading Location: [place] [address] Angio Body Reading RoomAddendum EndsFINAL REPORT CT angiography of the thoracoabdominalaorta and pelvic arteries, 14 January 2019 INDICATION: This is a 83 year old male with aortic stenosis, presents for preprocedure TAVR assessment. TECHNIQUE: Spiral acquisition before and during intravenous contrast administration using a Siemens multidetector CT scanner. Images were obtained before and during the dynamic passage of intravenous contrast material. Multi-planar 3-D volume-renderingreconstruction was performed using an independent workstation interactively by the interpreting physician as well as the 3-D specialist for optimal visualisation of the thoracoabdominal aorta, the pelvic arteries as well as its proximal branches. Please refer to the contrast sheet scanned in the EPIC system for the amount and route of contrast given. This exam was performed according to our departmental dose-optimisation programme, which includes automated exposure control, adjustment of the mA and/or kV according to patient size and/or use of iterative reconstruction technique. Dose modulation, ite rative reconstruction, and/or weight based adjustment of the mA/kV was utilized to reduce the radiation dose to as low as reasonably achievable. FINDINGS: VASCULAR: The pericardium appears unremarkable. No pericardial effusion is identified. The central pulmonary artery is normal in calibre. Assessment is limited. The cardiac chambers demonstrate normal atrioventricular and ventriculoarterial concordance, and systemic and pulmonary venous return. The left ventricle is normal in size. Left atrial enlargement is identified. Mild calcification is identified and the tip of the anterior mitral valve leaflet. The coronary artery origins are normal and diffuse coronary artery calcification versus stent is identified in the LAD territory. There could be scattered calcific and LCx and RCA territories. coronary calcifications are seen. Patient has a diagnosis of aortic stenosis. The aortic valve is tricuspid. The aortic Agatston score is 5712. The aortic valve area is 64 mm2. The location of aortic valvular calcification can be seen in reformatted data set sent to PACS. Regarding the aorta, there isminimal Consultation seen in the aortic root and ascending thoracic aorta is free of calcification. The transverse arch and descending thoracic aorta has mild scattered calcification identified. The abd ominal aorta has mild calcific and noncalcific atherosclerosis present. No aneurysmal dilation is identified. The mid ascending thoracic aorta measure approximately 3.7 cm in diameter. There is no evidence of acute aortic pathology, specifically, there is no dissection, intramural hematoma, or contained rupture. The arch vessel branching pattern is normal and the visualized arch vessels are widely patent proximally. The left subclavian artery has mild calcification identified proximally. At image 20, it measures 7 to 8 mm in diameter. The right subclavian artery has mild calcific and noncalcific at herosclerosis seen proximally. The minimum diameter proximally, is approximately 7.4 x 5.8 mm in diameter at image 83. There are single left and right renal arteries that are widely patent; nonobstructive calcification is seen at the takeoff of the right renal arteries. The coeliac axis, SMA, and ZAFAR are widely patent. Diffuse calcification is seen along the pathway splenic artery. The common iliac,external iliac, common femoral, and the visualized superficial femoral arteries, bilaterally, are widely patent with no obstructive lesion identified. Scattered calcification is identified with no obstructive lesion seen. See dimensions below for details. Dimensions that may be helpful for TAVR as follows: Mild calcification is seen in the aortic root and ascending thoracic aorta is free of calcification. The major and minor aortic annulus diameter measures 30.5 and 22.6 mm, respectively. The aorticannulus perimeter measured 83 mm and the cross-sectional area measures 528 mm2. The aortic annulus diameter at the traditional LVOT and coronal LVOT measures 23.7 and 27.8 mm, respectively. For reference purpose, per COLLAZO S3 brochure, recommendation are as follows: CT area between 273 to 345 mm2 (20 mm valve); 338 to 430 mm2 (23 mm valve); 430 to 546 mm2 (26 mm valve); 540 to 683 mm2 (29 mm valve). For reference purpose, per [employer] R broluis, recommendation are as follows: CT perimeter between 56.5-62.8 mm (23 mm valve); 62.8-72.3 mm (26 mm valve); 72.3-81.7 mm (29 mm valve); and 81.7-94.2. mm (34 mm valve). For reference purpose, per Molly Edge marce, recommendation are as follows: 23mm valve is recommended for CT perimeter between 62.8-72.3 mm; diameter between 20-23 mm; or area between 314- 415.5 mm2. For 25mm valve, it is recommended for CT perimeter between 72.3-78.5 mm; diameter between 23-25 mm; or area between 415.5-490.9 mm2. For 27mm valve, it is recommended for CT perimeter between 78.5-84.8 mm; diameter between 25-27 mm; or area between 490.9-572.6 mm2. Agatston Score is 5712. The aortic valve area is 64 mm2. The distance between the take off of the RCA and theannulus (systole): 14.2 mmThe distance between the take off of the LM and the annulus (systole): 14.0 mm The sinus of Valsalva diameter, RCC (systole): 35.3 mmThe sinus of Valsalva diameter, LCC (systole): 38.7 mmThe sinus of Valsalva diameter, NCC (systole): 38.8 mm The sinotubular junction measures,32.6 x 32.9 mm. The aortic root angulation measures 41.7 degrees. The minimal and perpendicular abdominal aortic diameter measures 18.2 x 17.3 mm, respectively. There is no evidence of thoracoabdominal aortic aneurysm or stent placement present. There is mild ectasia seen in the mid ascending thoracic aorta that measure 4.2 x 4.1 cm in diameter. The minimum and the perpendicular left common iliac artery measures 9.5 and 9.7 mm, respectively with mild tortuosity and mild calcific atherosclerosis present. The minimum and the perpendicular left external iliac artery measures 9 and 10 mm, respectively with ygrz-dr-fblgeitz tortuosity and minimal calcific atherosclerosis present. The minimum and the perpendicular left femoral artery measures 7.0 and 9.2 mm, respectively with mild tortuosity andmild calcific atherosclerosis present. The minimum and the perpendicular right common iliac artery measures 7.0 and 10.1 mm, respectively with mild tortuosity and mild to moderate calcific atherosclerosis present; localised atherosclerotic ulceration is identified, at image 249. The minimum and theperpendicular right external iliac artery measures 9.3 and 10.7 mm, respectively with unremarkabletortuosity and minimal calcific atherosclerosis present. The minimum and the perpendicular right femoral artery measures 7.7 and 8.3 mm, respectively with minimal tortuosity and no calcific atherosclerosis present. NON-VASCULAR: The visualised thyroid gland is unremarkable. The chest wall and mediastinum appear normal. No significant adenopathy is seen. In the lung windows, no endobronchial lesionis identified. Mild to moderate bibasal pleural effusions identified, with associated atelectatic changes present. Pulmonary vasculature is prominent suggesting underlying cardiac congestion. Correlatewith clinical examination. Calcified pleural plaque is seen, in the left, at image 216. Calcified nodule is seen, in the left lung, at image 560 representing underlying granulomatous disease. In the right apex, scar nodule is identified at image 33. An addendum dictated thereafter, if needed. Small nodule is identified in the anterior aspect of the right middle lobe, measure 4 mm, at image 456. In addition, nodular opacity is seen, measure 6 mm, at image 458, along the fissure of the right lung. No prior examination is available for comparison. In the abdomen, the liver and spleen appears unremarkable no acute pathology is identified. No abnormal enhancing structure is seen. In the AP orientation,the spleen is prominent measure approximately 15 cm. Clinical significance of this finding is uncertain. The pancreas appears unremarkable. No obvious gallstone is identified, though there could be focal calcification identified in the gallbladder wall, at image 121 of the precontrast series. No acuterenal pathology is seen and no hydronephrosis or perirenal fluid collection is identified. The left adrenal gland is unremarkable. The right adrenal gland could be mildly prominent/nodular. Bowel is not well assessed by CT angiography as enteric contrast is not given. No obvious bowel dilation is identified. Scattered colonic diverticulum is seen with no inflammatory changes present. Small bilateral fat-containing inguinal hernia is identified. The prostate is prominent. The bladder appears grossly unremarkable. Superficial wound is identified in the right groin suggesting prior catheterisation andassociated inflammatory changes are seen in the right groin with no haematoma or extravasation of contrast identified. No free air free flow seen abdomen pelvis and no significant retroperitoneal adenopathy is identified. In the bony windows, no acute bony pathology is seen. Some degenerative changes is noted. CONCLUSIONS: 1. Patient has a diagnosis of aortic stenosis. The aortic valve is tricuspid. The aortic Agatston Score is over 5700 and aortic valve area is 64 mm2. No mitral annular calcification is seen and tiny focal calcification seen along the anterior leaflet of the mitral valve. Minimal calcification is identified the level of the aortic root. Dimensions that may be helpful for TAVR as described above. 2. Coronary artery origins are normal. Calcification versus stent is present in the LAD territory. 3. Mild to moderate bibasal pleural effusion. The central pulmonary artery is at the upper limits of normal in size. Pulmonary vasculature is prominent suggesting underlying cardiac congestion. Evidence of prior granulomatous disease, and noncalcified nodules are seen that represent a spectrum of underlying granulomatous disease. Nodular noncalcified nodule is 6 mm along the fissure of the right lung. No prior examination is available for comparison. Professional recommendationas follows: Nodule Size 6-8 mm Low-Risk Patient: CT at 3-[address] at 18-24 monthsNodule Size 6-8 mm High-Risk Patient: CT at 3-6 months then at 18-24 months 4. Other findings as described above. 5. An addendum will be dictated regarding the non-vascular findings by the Warehouse Clerk Radiologist. Signed: Sudarshan Yu Verified Date/Time: 01/14/2019 18:44:15 [facility] [id number] 18:44:00Interface, External Ris In - 01/15/2019 2:13 PM CSTAddendum BeginsREPORT STATUS:A Addendum: I agree with the previously described non vascular findings by Dr. Yu. Signed: Elmer Soteloort Verified Date/Time: 01/15/2019 14:11:09 Reading Location: [place] [address] Angio Body Reading RoomAddendum EndsFINAL REPORT CT angiography of the thoracoabdominalaorta and pelvic arteries, 14 January 2019 INDICATION: This is a 83 year old male with aortic stenosis, presents for preprocedure TAVR assessment. TECHNIQUE: Spiral acquisition before and during intravenous contrast administration using a Siemens multidetector CT scanner. Images were obtained before and during the dynamic passage of intravenous contrast material. Multi-planar 3-D volume-renderingreconstruction was performed using an independent workstation interactively by the interpreting physician as well as the 3-D specialist for optimal visualisation of the thoracoabdominal aorta, the pelvic arteries as well as its proximal branches. Please refer to the contrast sheet scanned in the EPIC system for the amount and route of contrast given. This exam was performed according to our departmental dose-optimisation programme, which includes automated exposure control, adjustment of the mA and/or kV according to patient size and/or use of iterative reconstruction technique. Dose modulation, ite rative reconstruction, and/or weight based adjustment of the mA/kV was utilized to reduce the radiation dose to as low as reasonably achievable. FINDINGS: VASCULAR: The pericardium appears unremarkable. No pericardial effusion is identified. The central pulmonary artery is normal in calibre. Assessment is limited. The cardiac chambers demonstrate normal atrioventricular and ventriculoarterial concordance, and systemic and pulmonary venous return. The left ventricle is normal in size. Left atrial enlargement is identified. Mild calcification is identified and the tip of the anterior mitral valve leaflet. The coronary artery origins are normal and diffuse coronary artery calcification versus stent is identified in the LAD territory. There could be scattered calcific and LCx and RCA territories. coronary calcifications are seen. Patient has a diagnosis of aortic stenosis. The aortic valve is tricuspid. The aortic Agatston score is 5712. The aortic valve area is 64 mm2. The location of aortic valvular calcification can be seen in reformatted data set sent to PACS. Regarding the aorta, there isminimal Consultation seen in the aortic root and ascending thoracic aorta is free of calcification. The transverse arch and descending thoracic aorta has mild scattered calcification identified. The abd ominal aorta has mild calcific and noncalcific atherosclerosis present. No aneurysmal dilation is identified. The mid ascending thoracic aorta measure approximately 3.7 cm in diameter. There is no evidence of acute aortic pathology, specifically, there is no dissection, intramural hematoma, or contained rupture. The arch vessel branching pattern is normal and the visualized arch vessels are widely patent proximally. The left subclavian artery has mild calcification identified proximally. At image 20, it measures 7 to 8 mm in diameter. The right subclavian artery has mild calcific and noncalcific at herosclerosis seen proximally. The minimum diameter proximally, is approximately 7.4 x 5.8 mm in diameter at image 83. There are single left and right renal arteries that are widely patent; nonobstructive calcification is seen at the takeoff of the right renal arteries. The coeliac axis, SMA, and ZAFAR are widely patent. Diffuse calcification is seen along the pathway splenic artery. The common iliac,external iliac, common femoral, and the visualized superficial femoral arteries, bilaterally, are widely patent with no obstructive lesion identified. Scattered calcification is identified with no obstructive lesion seen. See dimensions below for details. Dimensions that may be helpful for TAVR as follows: Mild calcification is seen in the aortic root and ascending thoracic aorta is free of calcification. The major and minor aortic annulus diameter measures 30.5 and 22.6 mm, respectively. The aorticannulus perimeter measured 83 mm and the cross-sectional area measures 528 mm2. The aortic annulus diameter at the traditional LVOT and coronal LVOT measures 23.7 and 27.8 mm, respectively. For reference purpose, per COLLAZO S3 brochure, recommendation are as follows: CT area between 273 to 345 mm2 (20 mm valve); 338 to 430 mm2 (23 mm valve); 430 to 546 mm2 (26 mm valve); 540 to 683 mm2 (29 mm valve). For reference purpose, per [employer] Ev[employer] R brochure, recommendation are as follows: CT perimeter between 56.5-62.8 mm (23 mm valve); 62.8-72.3 mm (26 mm valve); 72.3-81.7 mm (29 mm valve); and 81.7-94.2. mm (34 mm valve). For reference purpose, per [employer] Edge brochure, recommendation are as follows: 23mm valve is recommended for CT perimeter between 62.8-72.3 mm; diameter between 20-23 mm; or area between 314- 415.5 mm2. For 25mm valve, it is recommended for CT perimeter between 72.3-78.5 mm; diameter between 23-25 mm; or area between 415.5-490.9 mm2. For 27mm valve, it is recommended for CT perimeter between 78.5-84.8 mm; diameter between 25-27 mm; or area between 490.9-572.6 mm2. Agatston Score is 5712. The aortic valve area is 64 mm2. The distance between the take off of the RCA and theannulus (systole): 14.2 mmThe distance between the take off of the LM and the annulus (systole): 14.0 mm The sinus of Valsalva diameter, RCC (systole): 35.3 mmThe sinus of Valsalva diameter, LCC (systole): 38.7 mmThe sinus of Valsalva diameter, NCC (systole): 38.8 mm The sinotubular junction measures,32.6 x 32.9 mm. The aortic root angulation measures 41.7 degrees. The minimal and perpendicular abdominal aortic diameter measures 18.2 x 17.3 mm, respectively. There is no evidence of thoracoabdominal aortic aneurysm or stent placement present. There is mild ectasia seen in the mid ascending thoracic aorta that measure 4.2 x 4.1 cm in diameter. The minimum and the perpendicular left common iliac artery measures 9.5 and 9.7 mm, respectively with mild tortuosity and mild calcific atherosclerosis present. The minimum and the perpendicular left external iliac artery measures 9 and 10 mm, respectively with wmoc-oo-jbeoglaz tortuosity and minimal calcific atherosclerosis present. The minimum and the perpendicular left femoral artery measures 7.0 and 9.2 mm, respectively with mild tortuosity andmild calcific atherosclerosis present. The minimum and the perpendicular right common iliac artery measures 7.0 and 10.1 mm, respectively with mild tortuosity and mild to moderate calcific atherosclerosis present; localised atherosclerotic ulceration is identified, at image 249. The minimum and theperpendicular right external iliac artery measures 9.3 and 10.7 mm, respectively with unremarkabletortuosity and minimal calcific atherosclerosis present. The minimum and the perpendicular right femoral artery measures 7.7 and 8.3 mm, respectively with minimal tortuosity and no calcific atherosclerosis present. NON-VASCULAR: The visualised thyroid gland is unremarkable. The chest wall and mediastinum appear normal. No significant adenopathy is seen. In the lung windows, no endobronchial lesionis identified. Mild to moderate bibasal pleural effusions identified, with associated atelectatic changes present. Pulmonary vasculature is prominent suggesting underlying cardiac congestion. Correlatewith clinical examination. Calcified pleural plaque is seen, in the left, at image 216. Calcified nodule is seen, in the left lung, at image 560 representing underlying granulomatous disease. In the right apex, scar nodule is identified at image 33. An addendum dictated thereafter, if needed. Small nodule is identified in the anterior aspect of the right middle lobe, measure 4 mm, at image 456. In addition, nodular opacity is seen, measure 6 mm, at image 458, along the fissure of the right lung. No prior examination is available for comparison. In the abdomen, the liver and spleen appears unremarkable no acute pathology is identified. No abnormal enhancing structure is seen. In the AP orientation,the spleen is prominent measure approximately 15 cm. Clinical significance of this finding is uncertain. The pancreas appears unremarkable. No obvious gallstone is identified, though there could be focal calcification identified in the gallbladder wall, at image 121 of the precontrast series. No acuterenal pathology is seen and no hydronephrosis or perirenal fluid collection is identified. The left adrenal gland is unremarkable. The right adrenal gland could be mildly prominent/nodular. Bowel is not well assessed by CT angiography as enteric contrast is not given. No obvious bowel dilation is identified. Scattered colonic diverticulum is seen with no inflammatory changes present. Small bilateral fat-containing inguinal hernia is identified. The prostate is prominent. The bladder appears grossly unremarkable. Superficial wound is identified in the right groin suggesting prior catheterisation andassociated inflammatory changes are seen in the right groin with no haematoma or extravasation of contrast identified. No free air free flow seen abdomen pelvis and no significant retroperitoneal adenopathy is identified. In the bony windows, no acute bony pathology is seen. Some degenerative changes is noted. CONCLUSIONS: 1. Patient has a diagnosis of aortic stenosis. The aortic valve is tricuspid. The aortic Agatston Score is over 5700 and aortic valve area is 64 mm2. No mitral annular calcification is seen and tiny focal calcification seen along the anterior leaflet of the mitral valve. Minimal calcification is identified the level of the aortic root. Dimensions that may be helpful for TAVR as described above. 2. Coronary artery origins are normal. Calcification versus stent is present in the LAD territory. 3. Mild to moderate bibasal pleural effusion. The central pulmonary artery is at the upper limits of normal in size. Pulmonary vasculature is prominent suggesting underlying cardiac congestion. Evidence of prior granulomatous disease, and noncalcified nodules are seen that represent a spectrum of underlying granulomatous disease. Nodular noncalcified nodule is 6 mm along the fissure of the right lung. No prior examination is available for comparison. Professional recommendationas follows: Nodule Size 6-8 mm Low-Risk Patient: CT at 3-[address] at 18-24 monthsNodule Size 6-8 mm High-Risk Patient: CT at 3-6 months then at 18-24 months 4. Other findings as described above. 5. An addendum will be dictated regarding the non-vascular findings by the Warehouse Clerk Radiologist. Signed: Sudarshan Yu Verified Date/Time: 01/14/2019 18:44:15 [facility] [id number] 17:40:00 Test Item Value Reference Range Interpretation Comments POC-GLUCOSE METER 204 mg/dL 70-110 H : TESTED A T [facility] 6720 (BEAKER) (test code = [facility], 1538) [id number]: Dining Room Cashier/Techni pelon ID = [id number] for EC HEBIRI, ZACH POCT-GLUCOSE [id number] 14:33:00 Test Item Value Reference Range Interpretation Comments POC-GLUCOSE METER 217 mg/dL 70-110 H : TESTED A T [facility] 6720 (BEAKER) (test code = [facility] [employer] [facility], 1538) [address]: Dining Room Cashier/Techni pelon ID = [id number] for EC HEBIRI, ZACH POCT-GLUCOSE [id number] 12:53:00 Test Item Value Reference Range Interpretation Comments POC-GLUCOSE METER 226 mg/dL 70-110 H : TESTED A T [facility] 6720 (BEAKER) (test code = [facility] [employer] [facility], 1538) [address]: Dining Room Cashier/Techni pelon ID = [id number] for JOSE LUIS GLASS 2D Echo W/Doppler(CW/PW/Color)2019-01-14 12:25:20Ejection [facility] ECHO HEARTLAB MKCKESSON CPACSInterface, External Ris In - 01/14/2019 12:25 PM C STTransthoracic Echocardiography Report (TTE) Demographics Patient Name KRYSTIAN RUBIN Date of Study 01/14/2019 LIU Gender Male Visit Number [id number] Race Unknown Room Number 1135 Number Date of 1935 Referring Lobo Perry MD Physician 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 The followingsegment(s) appear akinetic: apical anteroseptum, apical anterior, apex . The other segments are mildly hypokinetic. LVEF by Glynn's method of disk assessment is oxdmom-dl-dvgrmtnszt reduced (40%) . Grade 2 diastolic dysfunction (moderately increased LA pressure). There is mild aortic regurgitation. Severe aortic stenosis. AoV area at rest by continuity equation is in the range of 0.5 cm2. AoV resting dimensionless obstructive index (DOI) = 0.13. AoV resting Mean Gradient = 50mmHg.. Estimated peak systolic PA pressure is 50-55 mmHg + RA pressure. Signature Findings Left Ventricle The left ventricle is chamber size (by vol index) is normal (male - LVED vol - 34-74ml/m2). Normal LV wall thickness. The following segment(s) appear akinetic: apical anteroseptum, apical anterior, apex . The other segments are mildly hypokinetic. LVEF by Glynn's method of disk assessment is wzzfmk-hz-hgmetmypdf reduced (40%) . Grade 2 diastolic dysfunction (moderately increased LA pressure). Left Atrium LA size is severely enlarged [...] pressure. Pulmonic Valve PV is not well visualized. A trace of pulmonary regurgitation. Aorta Aortic root size (SInus of Valsalva diameter) is normal . Pericardium No pericardial effusion is visualized. IVC/SVC/PA/PV/Pleural The estimated RA pressure by IVC dynamics 5-10mmHg . Chambers/Structures Left Atrium LA Dimension: 4.05 cm LA Area: 26.53 cm^2 LA Volume: 104.21 ml LA Vol. Index: 50 ml/m^2Left Ventricle LVIDd: 5.95 cm LVIDs: 4.8 cm LV Septum Diastolic: 0.95 cm LV PW Diastolic: 1 cm LV FS: 19.3 % LVEDV Glynn's:141.33 ml LVESV Glynn's:85.19 mlLVEDVI: 67 ml/m^2 LVEF Glynn's: 39.7 % LVESVI: 41 ml/m^2 LVOT Diameter: 2.19cm Aorta Ao Root S of Minna.: 2.93 cm Doppler/Quantitative Measurements Aortic Valve Peak Velocity: 4.63 m/s Mean Velocity: 3.3 m/s Peak Gradient: 85.71 mmHg Mean Gradient: 50.09 mmHg AV Area (continuity): 0.49 cm^2 AV VTI: 101.69 cm AV DVI: 0.13 LVOT Peak Velocity: 0.54 m/s Peak Gradient: 1.16 mmHg Mean Velocity: 0.38 m/s Mean Gradient: 0.65mmHg LVOT Diameter: 2.19 cm LVOT VTI: 13.31 cm LVOT Area: 3.77 cm^2 LVOTSV:50.11 ml LVOT CO: 3.76 l/min LVOT CI: 1.79 l/min/m^2CNatividad Medical CenterAPTT2019-12-03 10:33:00 Test Item Value Reference Range Interpretation Comments PARTIAL THROMBOPLASTIN TIME 58.1 seconds 22.5-36.0 H (BEAKER) (test code = 760) 6 hours after starting heparin infusion and as indicated per sliding scale Troponin [id number] 08:35:00 Test Item Value Reference Range Interpretation Comments Troponin I (test code = 5.61 ng/mL 0-0.03 67369-0) BEATRIZ (test code = BEATRIZ) Troponin I (TnI) levels must be interpreted in the context of the presenting symptoms and the clinical findings. Elevated TnI levels indicate myocardial damage, but are not specific for ischemic heart disease. Elevated TnI levels are seen in patients with other cardiac conditions (including myocarditis and congestive heart failure), and slight TnI elevations occur in patients with other conditions, including sepsis, renal failure, acidosis, acute neurological disease, and persistent tachyarrhythmia. Lab Interpretation (test Abnormal code = 44457-4) [facility] [id number] 08:35:00 Test Item Value Reference Range Interpretation Comments TROPONIN I (BEAKER) (test code = 5.61 ng/mL 0.00-0.03 397) Troponin I (TnI) levels must be interpreted in the context of the presenting symptoms and the clinical findings. Elevated TnI levels indicate myocardial damage, but are not specific for ischemic heart disease. Elevated TnI levels are seen in patients with other cardiac conditions (including myocarditis and congestive heart failure), and slight TnI elevations occur in patients with other conditions, including sepsis, renal failure, acidosis, acute neurological disease, and persistent tachyarrhythmia.POCT-GLUCOSE [id number] 08:19:00 Test Item Value Reference Range Interpretation Comments POC-GLUCOSE METER 214 mg/dL 70-110 H : Notified RN/MD: (JEBLEYLA) (test code = TESTED AT [facility] 6720 1538) [place] [facility], [address]: Dining Room Cashier/Techni pelon ID = [id number] for JOSE LUIS GLASS [id number] 02:46:00 Test Item Value Reference Range Interpretation Comments MAGNESIUM (BEAKER) (test code = 2.0 mg/dL 1.6-2.6 627) BASIC METABOLIC [id number] 02:46:00 Test Item Value Reference Range Interpretation Comments SODIUM (BEAKER) 134 meq/L 136-145 L (test code = 381) POTASSIUM (BEAKER) 3.8 meq/L 3.5-5.1 (test code = 379) CHLORIDE (BEAKER) 103 meq/L 98-107 (test code = 382) CO2 (BEAKER) (test 23 meq/L 22-29 code = 355) BLOOD UREA NITROGEN 18 mg/dL 7-21 (BEAKER) (test code = 354) CREATININE (BEAKER) 0.78 mg/dL 0.57-1.25 (test code = 358) GLUCOSE RANDOM 195 mg/dL 70-105 H (BEAKER) (test code = 652) CALCIUM (BEAKER) 8.9 mg/dL 8.4-10.2 (test code = 697) EGFR (BEAKER) (test 95 mL/min/1.73 ESTIMA CORINNA GFR IS code = 1092) sq m NOT ACCURATE CREATININE CLEARANCE IN PREDICTING GLOMERULAR FILTRATION RATE . ESTIMATED GFR I S NOT APPLICABLE FOR DIALYSIS PATIEN TS. Specimen slightly ictericPT/[id number] 02:32:00 Test Item Value Reference Range Interpretation Comments Protime (test code = 15.7 11.9- 14.2 H 5902-2) seconds INR (test code = 1.3 <=5.9 6301-6) PTT (test code = 46.1 22.5- 36.0 H 70462-3) seconds BEATRIZ (test code = BEATRIZ) Effective 07/10/2018: PT Reference Range ChangeNew: 11.9-14.2 Previous: 11.7-14.7 RECOMMENDED COUMADIN/WARFARIN INR THERAPY RANGESSTANDARD DOSE: 2.0-3.0 Includes: PROPHYLAXIS for venous thrombosis, systemic embolization; TREATMENT for venous thrombosis and/or pulmonary embolus.HIGH RISK: Target INR is 2.5-3.5 for patients wiht mechanical heart valves. Lab Interpretation Abnormal (test code = 62507-6) [facility]PT/[id number] 02:32:00 Test Item Value Reference Range Interpretation Comments PROTIME (BEAKER) (test code = 15.7 seconds 11.9-14.2 H 759) INR (BEAKER) (test code = 370) 1.3 <=5.9 PARTIAL THROMBOPLASTIN TIME 46.1 seconds 22.5-36.0 H (BEAKER) (test code = 760) Effective 07/10/2018: PT Reference Range ChangeNew: 11.9-14.2 Previous: 11.7- 14.7RECOMMENDED COUMADIN/WARFARIN INR THERAPY RANGESSTANDARD DOSE: 2.0-3.0 Includes: PROPHYLAXIS for venous thrombosis, systemic embolization; TREATMENT for venous thrombosis and/or pulmonary embolus.HIGH RISK: Target INR is2.5-3.5 for patients wiht mechanical heart valves.CBC W/PLT COUNT & AUTO [id number] 02:05:00 Test Item Value Reference Range Interpretation Comments WHITE BLOOD CELL COUNT (BEAKER) 8.3 K/ L 3.5-10.5 (test code = 775) RED BLOOD CELL COUNT (BEAKER) 4.33 M/ L 4.63-6.08 L (test code = 761) HEMOGLOBIN (BEAKER) (test code = 13.4 GM/DL 13.7-17.5 L 410) HEMATOCRIT (BEAKER) (test code = 39.1 % 40.1-51.0 L 411) MEAN CORPUSCULAR VOLUME (BEAKER) 90.3 fL 79.0-92.2 (test code = 753) MEAN CORPUSCULAR HEMOGLOBIN 30.9 pg 25.7-32.2 (BEAKER) (test code = 751) MEAN CORPUSCULAR HEMOGLOBIN CONC 34.3 GM/DL 32.3-36.5 (BEAKER) (test code = 752) RED CELL DISTRIBUTION WIDTH 14.6 % 11.6-14.4 H (BEAKER) (test code = 412) PLATELET COUNT (BEAKER) (test 128 K/CU MM 150-450 L code = 756) MEAN PLATELET VOLUME (BEAKER) 12.2 fL 9.4-12.4 (test code = 754) NUCLEATED RED BLOOD CELLS 0 /100 WBC 0-0 (BEAKER) (test code = 413) NEUTROPHILS RELATIVE PERCENT 82 % (BEAKER) (test code = 429) LYMPHOCYTES RELATIVE PERCENT 10 % (BEAKER) (test code = 430) MONOCYTES RELATIVE PERCENT 5 % (BEAKER) (test code = 431) EOSINOPHILS RELATIVE PERCENT 1 % (BEAKER) (test code = 432) BASOPHILS RELATIVE PERCENT 1 % (BEAKER) (test code = 437) NEUTROPHILS ABSOLUTE COUNT 6.82 K/ L 1.78-5.38 H (BEAKER) (test code = 670) LYMPHOCYTES ABSOLUTE COUNT 0.80 K/ L 1.32-3.57 L (BEAKER) (test code = 414) MONOCYTES ABSOLUTE COUNT (BEAKER) 0.45 K/ L 0.30-0.82 (test code = 415) EOSINOPHILS ABSOLUTE COUNT 0.07 K/ L 0.04-0.54 (BEAKER) (test code = 416) BASOPHILS ABSOLUTE COUNT (BEAKER) 0.05 K/ L 0.01-0.08 (test code = 417) IMMATURE GRANULOCYTES-RELATIVE 2 % 0-1 H PERCENT (BEAKER) (test code = 2801) RAD, CHEST, 1 VIEW, NON [id number] 00:46:00Reason for exam:->pulmn edema, ASShould this be performed at the bedside?->YesFINAL REPORT History: Pulmonary edema, . Comparison: None. Findings: A single view of the chest is submitted. The cardiomediastinal contours are unremarkable. There is central vascular engorgement. Bilateral mid and lower lung interstitial and patchy airspace opacity may reflect a combination of atelectasis and edema. Pneumonitis should be excluded clinically. A subcentimete r calcified density nodule overlies the left midlung, bone island versus calcified granuloma. There is no pneumothorax or acute bony abnormality. Signed: Toby Luna MDReport Verified Date/Time: 01/14/2019 00:46:23 HEMOGLOBIN [id number] 22:28:00 Test Item Value Reference Range Interpretation Comments HEMOGLOBIN A1C (SAGRARIO) (test code = 8.2 % 4.3-6.1 H 368) TSH/Free T4 If [id number] 21:46:00 Test Item Value Reference Range Interpretation Comments TSH (test code = 13440-4) 1.51 0.35- 4.94 uIU/mL Lab Interpretation (test code = Normal 12948-2) [facility]TSH[facility]FREE T4 IF [id number] 21:46:00 Test Item Value Reference Range Interpretation Comments THYROID STIMULATING HORMONE 1.51 uIU/mL 0.35-4.94 (SAGRARIO) (test code = 772) POCT-GLUCOSE [id number] 21:42:00 Test Item Value Reference Range Interpretation Comments POC-GLUCOSE METER 218 mg/dL 70-110 H : TESTED A T [facility] 6720 (SAGRARIO) (test code = JU[facility] C[facility], 1538) [address]: Dining Room Cashier/Techni pelon ID = [id number] for LUIZA LÓPEZ TROPONIN [id number] 21:17:00 Test Item Value Reference Range Interpretation Comments TROPONIN I (SAGRARIO) (test code = 6.11 ng/mL 0.00-0.03 397) Troponin I (TnI) levels must be interpreted in the context of the presenting symptoms and the clinical findings. Elevated TnI levels indicate myocardial damage, but are not specific for ischemic heart disease. Elevated TnI levels are seen in patients with other cardiac conditions (including myocarditis and congestive heart failure), and slight TnI elevations occur in patients with other conditions, including sepsis, renal failure, acidosis, acute neurological disease, and persistent tachyarrhythmia.ABORH, [id number] 21:11:00 Test Item Value Reference Range Interpretation Comments ABO Grouping (test code = 2588) A Rh Factor (test code = 2589) NEG [facility] HospitalLipid [id number] 21:08:00 Test Item Value Reference Range Interpretation Comments Triglycerides (test 102 mg/dL code = 2571-8) Cholesterol (test code 130 mg/dL = 2093-3) HDL (test code = 26 mg/dL 2084-) LDL Calculated (test 84 mg/dL code = 12511-8) BEATRIZ (test code = BEATRIZ) Triglyceride Reference Range: Low Risk <150 Borderline 150-199 High Risk 200-499 Very High Risk >=500 Cholesterol Reference Range: Low Risk <200 Borderline 200-239 High Risk >240 HDL Cholesterol Reference Range: Low Risk >=60 High Risk <40 LDL Cholesterol Reference Range: Optimal <100 Near Optimal 100-129 Borderline 130-159 High 160-189 Very High >=190 Specimen slightly icteric [facility] [id number] 21:08:00 Test Item Value Reference Range Interpretation Comments TRIGLYCERIDES (BEAKER) (test code = 102 mg/dL 540) CHOLESTEROL (BEAKER) (test code = 130 mg/dL 631) HDL CHOLESTEROL (BEAKER) (test code 26 mg/dL = 976) LDL CHOLESTEROL CALCULATED (BEAKER) 84 mg/dL (test code = 633) Triglyceride Reference Range: Low Risk <150 Borderline 150-199 High Risk 200-499 Very High Risk >=500Cholesterol Reference Range: Low Risk <200 Borderline 200-239 High Risk >240HDL Cholesterol Reference Range: Low Risk >=60 High Risk <40LDL Cholesterol Reference Range: Optimal <100 Near Optimal 100-129 Borderline 130-159 High 160-189 Very High >=190 Specimen slightly ictericHepatic function [id number] 20:11:00 Test Item Value Reference Range Interpretation Comments Protein, Total (test code 6.1 6.0- 8.3 gm/dL = 2885-2) Albumin (test code = 3.6 g/dL 3.5-5 50254-9) Total Bilirubin (test code 2.4 mg/dL 0.2-1.2 H = 1974-2) Bilirubin, Direct (test 1.0 mg/dL 0.1-0.5 H code = 1967-7) Alkaline Phosphatase (test 62 U/L 40-150 code = 6768-6) AST (test code = 1920-8) 23 U/L 5-34 ALT (test code = 1742-6) 10 U/L 6-55 BEATRIZ (test code = BEATRIZ) Specimen slightly icteric Lab Interpretation (test Abnormal code = 68845-3) [facility] HospitalHEPATIC FUNCTION [id number] 20:11:00 Test Item Value Reference Range Interpretation Comments TOTAL PROTEIN (BEAKER) (test code = 6.1 gm/dL 6.0-8.3 770) ALBUMIN (BEAKER) (test code = 1145) 3.6 g/dL 3.5-5.0 BILIRUBIN TOTAL (BEAKER) (test code 2.4 mg/dL 0.2-1.2 H = 377) BILIRUBIN DIRECT (BEAKER) (test 1.0 mg/dL 0.1-0.5 H code = 706) ALKALINE PHOSPHATASE (BEAKER) (test 62 U/L 40-150 code = 346) AST (SGOT) (BEAKER) (test code = 23 U/L 5-34 353) ALT (SGPT) (BEAKER) (test code = 10 U/L 6-55 347) Specimen slightly ictericB-type Natriuretic Factor (BNP)2019-01-13 19:19:00 Test Item Value Reference Range Interpretation Comments BNP (test code = 04985-7) 1799 pg/mL 0-100 H Lab Interpretation (test code = Abnormal 32602-2) [facility] HospitalB-TYPE NATRIURETIC FACTOR (BNP)2019-01-13 19:19:00 Test Item Value Reference Range Interpretation Comments B-TYPE NATRIURETIC PEPTIDE 1799 pg/mL 0-100 H (BEAKER) (test code = 700) [id number] 19:13:00 Test Item Value Reference Range Interpretation Comments MAGNESIUM (BEAKER) (test code = 1.6 mg/dL 1.6-2.6 627) BASIC METABOLIC [id number] 19:13:00 Test Item Value Reference Range Interpretation Comments SODIUM (BEAKER) 137 meq/L 136-145 (test code = 381) POTASSIUM (BEAKER) 3.1 meq/L 3.5-5.1 L (test code = 379) CHLORIDE (BEAKER) 103 meq/L 98-107 (test code = 382) CO2 (BEAKER) (test 28 meq/L 22-29 code = 355) BLOOD UREA NITROGEN 16 mg/dL 7-21 (BEAKER) (test code = 354) CREATININE (BEAKER) 0.80 mg/dL 0.57-1.25 (test code = 358) GLUCOSE RANDOM 167 mg/dL 70-105 H (BEAKER) (test code = 652) CALCIUM (BEAKER) 9.0 mg/dL 8.4-10.2 (test code = 697) EGFR (BEAKER) (test 93 mL/min/1.73 ESTIMA CORINNA GFR IS code = 1092) sq m NOT ACCURATE CREATININE CLEARANCE IN PREDICTING GLOMERULAR FILTRATION RATE . ESTIMATED GFR I S NOT APPLICABLE FOR DIALYSIS PATIEN TS. Specimen slightly ictericPT/[id number] 19:03:00 Test Item Value Reference Range Interpretation Comments PROTIME (BEAKER) (test code = 16.0 seconds 11.9-14.2 H 759) INR (BEAKER) (test code = 370) 1.4 <=5.9 PARTIAL THROMBOPLASTIN TIME 45.1 seconds 22.5-36.0 H (BEAKER) (test code = 760) Effective 07/10/2018: PT Reference Range ChangeNew: 11.9-14.2 Previous: 11.7- 14.7RECOMMENDED COUMADIN/WARFARIN INR THERAPY RANGESSTANDARD DOSE: 2.0-3.0 Includes: PROPHYLAXIS for venous thrombosis, systemic embolization; TREATMENT for venous thrombosis and/or pulmonary embolus.HIGH RISK: Target INR is2.5-3.5 for patients wiht mechanical heart valves.POCT-GLUCOSE [id number] 18:37:00 Test Item Value Reference Range Interpretation Comments POC-GLUCOSE METER 149 mg/dL 70-110 H : TESTED A T [facility] 6720 ([employer]) (test code = [place], 1538) [address]: Dining Room Cashier/Techni pelon ID = [id number] for MYRA FITZGERALD
--- NOTE | 2019-12-11 19:38 | RAD REPORT ---
EXAM DESCRIPTION: RAD - Pelvis - 12/11/2019 7:25 pm CLINICAL HISTORY: fall, pelvic and right hip pain COMPARISON: Hip Right 2 View dated 12/11/2019; Femur Right dated 12/11/2019 TECHNIQUE: AP imaging of the pelvis was obtained. FINDINGS: Lower lumbar degenerative change present only partially imaged. No gross deformity of the sacral ala which are substantially obscured by bowel. SI joint and pubic symphysis degenerative peguero es are present. No fracture of the bony pelvis. No pathologic bone process. Left hip joint shows degenerative change without acute finding. Right hip joint is separately detailed. IMPRESSION: Degenerative changes are present with no acute pelvic fracture identifiable.
--- NOTE | 2019-12-11 19:39 | RAD REPORT ---
EXAM DESCRIPTION: RAD - Femur Right - 12/11/2019 7:25 pm CLINICAL HISTORY: fall;Pain, right and right leg pain COMPARISON: No comparisons FINDINGS: Hip joint and proximal femur detailed on the separate hip report. Mid and distal femur corinne ws no fracture or acute bone finding. 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 No radiographic eviden ce for loosening. No pathologic bone process. No air or foreign body in the soft tissues. Arterial calcifications are present. IMPRESSION: Mid and distal right femur, as detailed, show no acute findings. Right hip joint and proximal femur detailed in separate right hip report.
--- NOTE | 2019-12-11 19:40 | RAD REPORT ---
EXAM DESCRIPTION: RAD - Hip Right 2 View - 12/11/2019 7:25 pm CLINICAL HISTORY: fall;Pain, right hip pain COMPARISON: No comparisons FINDINGS: AP and cross-table lateral views obtained. Transverse fracture present near the base of the femoral neck. No significant distraction or angulati on deformity. No pathologic component identifiable. No intertrochanteric component of fracture identi fiable. Mild to moderate for age degenerative change present at the hip joint. No AVN or focal femora l head abnormality. No periarticular significant mass or hematoma. IMPRESSION: Right femoral neck fracture as detailed.
--- NOTE | 2019-12-11 19:55 | ER ---
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 Pain since. Chief complaint: EMS states: Fentanyl 50mcg IV given en route. 20 G L AC. Coronavirus screen: Client denies travel out of the [place] in the last 14 days. At this time, the client does not indicate any symptoms associated with coronavirus-19. Ebola Screen: Patient denies travel to an Ebola-affected area in the 21 days before illness onset. Initial Sepsis Screen: Does the patient meet any 2 criteria?. Initial Sepsis Screen: Does the patient meet any 2 criteria? RR > 20 per min. No. Patient's initial sepsis screen is negative. Does the patient have a suspected source of infection? Yes: Bone or joint infection. Risk Assessment: Do you want to hurt yourself or someone else? Patient reports no desire to harm self or others. Onset of symptoms was December 11, 2019. 18:34 Method Of Arrival: EMS ll1 18:34 Acuity: RISHABH 3 ll1 18:40 Care prior to arrival: Bleeding of injury controlled. Medication(s) given: fentanyl. ll1 Mechanism of Injury: Fall from standing position. Trauma event details: Injury occurred in the [facility]. Triage Assessment: 18:39 General: Appears uncomfortable, Behavior is calm, cooperative, appropriate for age. ll1 Pain: Complains of pain in R hip Pain currently is 10 out of 10 on a pain scale. Quality of pain is described as aching, throbbing, Pain began 30 min ago. Neuro: No deficits noted. Cardiovascular: No deficits noted. Respiratory: No deficits noted. GI: No deficits noted. Musculoskeletal: Circulation, motion, and sensation intact. Capillary refill < 3 seconds, externally rotated Reports pain in R hip. Trauma Activation: Alert Physician: ED Physician; Name: JAIMIE Seo; Notified At: ; Arrived At: Physician: General Surgeon; Name: ; Notified At: ; Arrived At: Physician: Radiology; Name: ; Notified At: ; Arrived At: Physician: Respiratory; Name: ; Notified At: ; Arrived At: Physician: Lab; Name: ; Notified At: ; Arrived At: Historical: - Allergies: 18:37 No Known Allergies; ll1 - PMHx: 18:37 Arthritis; CAD; cardiac stent x2; Diabetes - NIDDM; Hypertension; ll1 - PSHx: 18:37 mitral valve replacement; cardiac stents; ll1 - Immunization history:: Flu vaccine is up to date. - Social history:: Smoking status: Patient denies any tobacco usage or history of. - Immunization history: Last tetanus immunization:. Screenin:37 Abuse screen: Denies threats or abuse. Nutritional screening: No deficits noted. ll1 Tuberculosis screening: No symptoms or risk factors identified. Fall Risk Fall in past 12 months (25 points). IV access (20 points). Ambulatory Aid- Crutches/Cane/Walker (15 pts). Gait- Impaired (20 pts.). Total Miller Fall Scale indicates High Risk Score (45 or more points). Fall prevention measures have been instituted. Side Rails Up X 2 Frequent Obs/Assessments Occuring As available patient and family educated on Fall Prevention Program and Strategies. Primary Survey: 18:38 NO uncontrolled hemorrhage observed. A: The patient is alert. Airway: patent, No ll1 supplemental oxygen in use on arrival. Breathing/Chest: Respiratory pattern: tachypnea, Respiratory effort: spontaneous, labored, Breath sounds: clear, bilaterally. Chest inspection: symmetrical rise and fall of the chest. Circulation: Pulses: palpable right radial artery and left radial artery. Skin color: pink, Skin temperature: warm, dry. Disability Alert. Exposure/Environment: Obvious injury(ies) are noted at this time: R hip A warming method has been applied: A warm blanket has been provided to the patient. 19:01 Reassessment Airway Airway Patent Breathing/Chest Respiratory pattern Regular ll1 Respiratory effort Spontaneous Unlabored Breath sounds Clear Chest inspection Symmetrical Circulation Color [place]. Assessment: 18:41 General: Appears uncomfortable, Behavior is calm, cooperative, appropriate for age. ll1 Pain: Complains of pain in R hip Pain currently is 10 out of 10 on a pain scale. Neuro: No deficits noted. Cardiovascular: No deficits noted. Respiratory: No deficits noted. GI: No deficits noted. Musculoskeletal: Circulation, motion, and sensation intact. Capillary refill < 3 seconds, externally rotated Reports pain in R hip. Injury Description: fall, possible hip FX. 18:45 Reassessment: TRAUMA ALERT CALLED. hb 19:25 Reassessment: Patient appears in no apparent distress at this time. Patient and/or jb4 family updated on plan of care and expected duration. Pain level reassessed. Patient is alert, oriented x 3, equal unlabored respirations, skin warm/dry/pink. PT back in bed from CT. 20:15 Reassessment: Patient appears in no apparent distress at this time. Patient and/or jb4 family updated on plan of care and expected duration. Pain level reassessed. Patient is alert, oriented x 3, equal unlabored respirations, skin warm/dry/pink. 21:15 Reassessment: Patient appears in no apparent distress at this time. Patient and/or jb4 family updated on plan of care and expected duration. Pain level reassessed. Patient is alert, oriented x 3, equal unlabored respirations, skin warm/dry/pink. 22:15 Reassessment: Patient appears in no apparent distress at this time. Patient and/or jb4 family updated on plan of care and expected duration. Pain level reassessed. Patient is alert, oriented x 3, equal unlabored respirations, skin warm/dry/pink. attempted to call report. will retry in 15 minutes. 22:21 Reassessment: report given to Mckenzie MARIE for room 208. bb Vital Signs: 18:34 BP 141 / 104; Pulse 75; Resp 22; Temp 98.1; Pulse Ox 99% ; Weight 90.26 kg; Height 6 ll1 ft. 0 in. (182.88 cm); Pain 10/10; 18:53 BP 143 / 76; Pulse 62; Resp 20; Pulse Ox 98% ; Pain 9/10; ll1 19:45 BP 153 / 76; Pulse 67; Resp 16; Pulse Ox 100% on R/A; jb4 20:45 BP 157 / 82; Pulse 76; Resp 16; Pulse Ox 96% on R/A; jb4 21:30 BP 152 / 80; Pulse 75; Resp 16; Pulse Ox 99% on R/A; jb4 18:34 Body Mass Index 26.99 (90.26 kg, 182.88 cm) ll1 Augusto Coma Score: 18:39 Eye Response: spontaneous(4). Verbal Response: oriented(5). Motor Response: obeys ll1 commands(6). Total: 15. 19:45 Eye Response: spontaneous(4). Verbal Response: oriented(5). Motor Response: obeys jb4 commands(6). Total: 15. 20:45 Eye Response: spontaneous(4). Verbal Response: oriented(5). Motor Response: obeys jb4 commands(6). Total: 15. 21:30 Eye Response: spontaneous(4). Verbal Response: oriented(5). Motor Response: obeys jb4 commands(6). Total: 15. Trauma Score (Adult): 18:39 Eye Response: spontaneous(1); Verbal Response: oriented(1); Motor Response: obeys ll1 commands(2); Systolic BP: > 89 mm Hg(4); Respiratory Rate: 10 to 29 per min(4); Wisner Score: 15; Trauma Score: 12 19:45 Eye Response: spontaneous(1); Verbal Response: oriented(1); Motor Response: obeys jb4 commands(2); Systolic BP: > 89 mm Hg(4); Respiratory Rate: 10 to 29 per min(4); Wisner Score: 15; Trauma Score: 12 20:45 Eye Response: spontaneous(1); Verbal Response: oriented(1); Motor Response: obeys jb4 commands(2); Systolic BP: > 89 mm Hg(4); Respiratory Rate: 10 to 29 per min(4); Wisner Score: 15; Trauma Score: 12 21:30 Eye Response: spontaneous(1); Verbal Response: oriented(1); Motor Response: obeys jb4 commands(2); Systolic BP: > 89 mm Hg(4); Respiratory Rate: 10 to 29 per min(4); Augusto Score: 15; Trauma Score: 12 ED Course: 18:33 Patient arrived in ED. ll1 18:34 Casimiro Meneses PA is PHCP. cp 18:34 Hung Wynn MD is Attending Physician. cp 18:36 Triage completed. ll1 18:36 Arm band placed on Patient placed in an exam room, on a stretcher. ll1 18:37 Maintain EMS IV. Dressing intact. Good blood return noted. Site clean \T\ dry. Gauge \T\ ll 1 site: 20 G L AC. 18:43 Byron Staley, RN is Primary Nurse. ll1 18:43 Patient has correct armband on for positive identification. Bed in low position. Call ll1 light in reach. Side rails up X2. Pulse ox on. NIBP on. 19:01 Patient maintains SpO2 saturation greater than 95% on room air. ll1 19:01 Thermoregulation: warm blanket given to patient. ll1 19:25 XRAY Femur RIGHT In Process Unspecified. EDMS 19:25 XRAY Pelvis In Process Unspecified. EDMS 19:25 XRAY Hip RIGHT 2 view In Process Unspecified. EDMS 19:53 Humberto Voss MD is Hospitalizing Provider. cp 20:04 XRAY Chest (1 view) In Process Unspecified. EDMS 21:40 Hernandez cath inserted, using sterile technique, 16 Fr., by tn, balloon inflated, to ds4 gravity drainage, urine specimen collected. returned cloudy urine. Patient tolerated well. 21:49 Urine Microscopic Only Sent. ds4 22:11 No provider procedures requiring assistance completed. Patient admitted, IV remains in jb4 place. Administered Medications: 18:52 Drug: NS 0.9% 500 ml Route: IV; Rate: 500 ml/hr; Site: left antecubital; ll1 19:45 Follow up: Response: No adverse reaction; IV Status: Completed infusion; IV Intake: jb4 500ml 18:53 Drug: morphine 4 mg {Note: rass 0.} Route: IVP; Site: left antecubital; ll1 19:10 Follow up: Response: No adverse reaction; Pain is decreased jb4 20:04 Drug: morphine 4 mg Route: IVP; Site: left antecubital; jb4 20:33 Follow up: Response: No adverse reaction; Pain is decreased; RASS: Alert and Calm (0) jb4 Intake: 19:45 IV: 500ml; Total: 500ml. jb4 Output: 22:15 Urine: 300ml (Voided); Total: 300ml. jb4 Outcome: 19:54 Decision to Hospitalize by Provider. cp 22:11 Admitted to Med/surg accompanied by tech, via stretcher, with chart. jb4 22:11 Condition: stable 22:11 Discharge instructions given to patient, family, Instructed on the need for admit, Demonstrated understanding of instructions. 22:11 Patient's length of stay in the Emergency Department was greater than 2 hours. PT jb4 admitted.Patient's length of stay extended due to 22:31 Patient left the ED. jb4 Signatures: Dispatcher [employer] EDMS Carina Harrison RN RN bb Erasto Hsieh ds4 Casimiro Meneses PA PA cp Baxter, Heather, RN RN Lc Bautista RN RN jb4 Byron Staley RN RN ll1
--- NOTE | 2019-12-11 19:55 | EDPHYS ---
Physician Documentation [facility] Name: Jadon Zamora Age: 84 yrs Sex: Male : 1935 Arrival Date: 12/11/2019 Time: 18:33 Bed 6 Private MD: ED Physician Hung Wynn HPI: 12/10 18:50 This 84 yrs old Male presents to ER via EMS with complaints of Hip Injury. cp 18:50 The patient or guardian reports decreased range of motion, deformity, an injury, pain. cp sustained from a fall, right leg is externally rotated, The patient is not able to ambulate. The patient is able to bear partial body weight. There is no radiation of the patient's discomfort. The complaints affect the right hip. Onset: The symptoms/episode began/occurred just prior to arrival. Associated signs and symptoms: Loss of consciousness: the patient experienced no loss of consciousness, Pertinent positives: None. Historical: - Allergies: 18:37 No Known Allergies; ll1 - PMHx: 18:37 Arthritis; CAD; cardiac stent x2; Diabetes - NIDDM; Hypertension; ll1 - PSHx: 18:37 mitral valve replacement; cardiac stents; ll1 - Immunization history:: Flu vaccine is up to date. - Social history:: Smoking status: Patient denies any tobacco usage or history of. - Immunization history: Last tetanus immunization:. ROS: 19:00 Constitutional: Negative for body aches, chills, fever, poor PO intake. cp 19:00 Eyes: Negative for injury, pain, redness, and discharge. cp 19:00 Neck: Negative for pain with movement, pain at rest, stiffness, bony tenderness. 19:00 Cardiovascular: Negative for chest pain, edema, palpitations. 19:00 Respiratory: Negative for cough, shortness of breath, wheezing. 19:00 Abdomen/GI: Negative for abdominal pain, nausea, vomiting, and diarrhea. 19:00 Back: Negative for pain at rest, pain with movement. 19:00 MS/extremity: Positive for injury or acute deformity, decreased range of motion, pain, of the right hip, Negative for paresthesias. 19:00 Neuro: Negative for altered mental status, dizziness, loss of consciousness, syncope, weakness. 19:00 All other systems are negative. Exam: 19:05 Constitutional: The patient appears in no acute distress, alert, awake, cp non-diaphoretic, non-toxic, well developed, well nourished, in obvious pain, uncomfortable. 19:05 Head/Face: Normocephalic, atraumatic. cp 19:05 Eyes: Periorbital structures: appear normal, Conjunctiva: normal, no exudate, no injection, Sclera: no appreciated abnormality, Lids and lashes: appear normal, bilaterally. 19:05 Neck: C-spine: vertebral tenderness, is not appreciated, crepitus, is not appreciated, ROM/movement: is normal, is supple, without pain, no range of motions limitations. 19:05 Chest/axilla: Inspection: normal, Palpation: is normal, no crepitus, no tenderness. 19:05 Cardiovascular: Rate: normal, Rhythm: regular, Edema: is not appreciated, JVD: is not appreciated. 19:05 Respiratory: the patient does not display signs of respiratory distress, Respirations: normal, no use of accessory muscles, no retractions, labored breathing, is not present, Breath sounds: are clear throughout, no decreased breath sounds. 19:05 Abdomen/GI: Inspection: abdomen appears normal, Bowel sounds: active, all quadrants, Palpation: abdomen is soft and non-tender, in all quadrants, rebound tenderness, is not appreciated, voluntary guarding, is not appreciated, involuntary guarding, is not appreciated. 19:05 Back: pain, is absent, ROM is normal. 19:05 Musculoskeletal/extremity: Extremities: grossly normal except: noted in the right hip: decreased ROM, deformity, pain, tenderness, Perfusion: the extremity is normally perfused throughout, the right hip Severe pain noted. 19:05 Neuro: Orientation: to person, place \T\ time. Mentation: is normal. 20:20 ECG was reviewed by the Attending Physician. cp Vital Signs: 18:34 BP 141 / 104; Pulse 75; Resp 22; Temp 98.1; Pulse Ox 99% ; Weight 90.26 kg; Height 6 ll1 ft. 0 in. (182.88 cm); Pain 10/10; 18:53 BP 143 / 76; Pulse 62; Resp 20; Pulse Ox 98% ; Pain 9/10; ll1 19:45 BP 153 / 76; Pulse 67; Resp 16; Pulse Ox 100% on R/A; jb4 20:45 BP 157 / 82; Pulse 76; Resp 16; Pulse Ox 96% on R/A; jb4 21:30 BP 152 / 80; Pulse 75; Resp 16; Pulse Ox 99% on R/A; jb4 18:34 Body Mass Index 26.99 (90.26 kg, 182.88 cm) ll1 Augusto Coma Score: 18:39 Eye Response: spontaneous(4). Verbal Response: oriented(5). Motor Response: obeys ll1 commands(6). Total: 15. 19:45 Eye Response: spontaneous(4). Verbal Response: oriented(5). Motor Response: obeys jb4 commands(6). Total: 15. 20:45 Eye Response: spontaneous(4). Verbal Response: oriented(5). Motor Response: obeys jb4 commands(6). Total: 15. 21:30 Eye Response: spontaneous(4). Verbal Response: oriented(5). Motor Response: obeys jb4 commands(6). Total: 15. Trauma Score (Adult): 18:39 Eye Response: spontaneous(1); Verbal Response: oriented(1); Motor Response: obeys ll1 commands(2); Systolic BP: > 89 mm Hg(4); Respiratory Rate: 10 to 29 per min(4); Augusto Score: 15; Trauma Score: 12 19:45 Eye Response: spontaneous(1); Verbal Response: oriented(1); Motor Response: obeys jb4 commands(2); Systolic BP: > 89 mm Hg(4); Respiratory Rate: 10 to 29 per min(4); Miami Score: 15; Trauma Score: 12 20:45 Eye Response: spontaneous(1); Verbal Response: oriented(1); Motor Response: obeys jb4 commands(2); Systolic BP: > 89 mm Hg(4); Respiratory Rate: 10 to 29 per min(4); Miami Score: 15; Trauma Score: 12 21:30 Eye Response: spontaneous(1); Verbal Response: oriented(1); Motor Response: obeys jb4 commands(2); Systolic BP: > 89 mm Hg(4); Respiratory Rate: 10 to 29 per min(4); Augusto Score: 15; Trauma Score: 12 MDM: 18:41 Patient medically screened. cp 19:55 Physician consultation: Arpan Rey MD was called at 19:50, was contacted at 19:50, cp regarding consult, patient's condition, and will see patient tomorrow. 19:56 Physician consultation: Humberto Voss MD was called at 19:56, left message on voicemail. cp 20:00 Data reviewed: vital signs, nurses notes, radiologic studies, plain films, I have cp discussed the patient's presentation/case with the attending Emergency Department Physician; and as a result, I will admit patient. 20:00 Test interpretation: by ED physician or midlevel provider: xrays of right hip show cp femoral neck fracture. Counseling: I had a detailed discussion with the patient and/or guardian regarding: the historical points, exam findings, and any diagnostic results supporting the discharge/admit diagnosis, radiology results, the need for further work-up and treatment in the hospital. Response to treatment: the patient's symptoms have markedly improved after treatment. 20:19 Physician consultation: Humberto Voss MD was called at 20:15, was contacted at 20:15, cp regarding admission, to the telemetry unit. patient's condition, would like consultation with Dr. Fierro. 12/10 19:52 Order name: Basic Metabolic Panel cp 12/10 19:52 Order name: CBC with Diff cp 12/10 19:52 Order name: LFT's cp 12/10 19:52 Order name: Magnesium cp 12/10 19:52 Order name: NT PRO-BNP cp 12/10 19:52 Order name: PT-INR cp 12/10 19:52 Order name: Troponin (emerg Dept Use Only) cp 12/10 20:09 Order name: Urine Microscopic Only cp 12/10 20:20 Order name: CBC Smear Scan EDMS 12/10 20:38 Order name: Basic Metabolic Panel EDMS 12/10 20:38 Order name: Basic Metabolic Panel EDMS 12/10 20:38 Order name: CBC with Automated Diff EDMS 12/10 20:38 Order name: CBC with Automated Diff EDMS 12/10 21:50 Order name: Urine Dipstick--Ancillary (enter results) ds4 12/10 18:43 Order name: XRAY Femur RIGHT cp 12/10 18:43 Order name: XRAY Pelvis cp 12/10 18:43 Order name: XRAY Hip RIGHT 2 view cp 12/10 18:43 Order name: IV; Complete Time: 18:44 cp 12/10 19:52 Order name: XRAY Chest (1 view) cp 12/10 19:52 Order name: EKG; Complete Time: 19:53 cp 12/10 19:52 Order name: Cardiac monitoring; Complete Time: 20:02 cp 12/10 19:52 Order name: EKG - Nurse/Tech; Complete Time: 20:31 cp 12/10 19:52 Order name: Labs collected and sent; Complete Time: 20:02 cp 12/10 19:52 Order name: O2 Per Protocol; Complete Time: 20:02 cp 12/10 20:38 Order name: CONS Physician Consult EDMS 12/10 20:38 Order name: Consistent Carb (ADA) 1800 Payam EDMS 12/10 21:53 Order name: Urine Dipstick-Ancillary EDMS 12/10 19:52 Order name: O2 Sat Monitoring; Complete Time: 20:02 cp 12/10 20:09 Order name: Hernandez; Complete Time: 21:44 cp 12/10 20:09 Order name: Urine Dipstick-Ancillary (obtain specimen); Complete Time: 21:44 cp EC:20 Rate is 62 beats/min. Rhythm is regular. QRS interval is prolonged at 150 msec. QT cp interval is normal. Interpreted by me. Reviewed by me. Administered Medications: 18:52 Drug: NS 0.9% 500 ml Route: IV; Rate: 500 ml/hr; Site: left antecubital; 1 19:45 Follow up: Response: No adverse reaction; IV Status: Completed infusion; IV Intake: jb4 500ml 18:53 Drug: morphine 4 mg {Note: rass 0.} Route: IVP; Site: left antecubital; ll1 19:10 Follow up: Response: No adverse reaction; Pain is decreased jb4 20:04 Drug: morphine 4 mg Route: IVP; Site: left antecubital; jb4 20:33 Follow up: Response: No adverse reaction; Pain is decreased; RASS: Alert and Calm (0) jb4 Disposition: 12/11 15:53 Co-signature as Attending Physician, Hung Wnyn MD I agree with the assessment and kdr plan of care. Disposition: 12/11/19 19:54 Hospitalization ordered by Humberto Voss for Inpatient Admission. Preliminary diagnosis is Nondisplaced fracture of base of neck of right femur. - Bed requested for Telemetry/MedSurg (Inpatient). - Status is Inpatient Admission. jb4 - Condition is Stable. - Problem is new. - Symptoms have improved. Signatures: Dispatcher [employer] EDMS Hung Wynn MD MD [facility] Casimiro Meneses PA PA cp Maranda Mejia RN RN Lc Bautista RN RN jb4 Byron Staley RN RN ll1 Corrections: (The following items were deleted from the chart) 12/10 21:12 19:54 Hospitalization Ordered by Humberto Voss MD for Inpatient Admission. Preliminary cg diagnosis is Nondisplaced fracture of base of neck of right femur. Bed requested for Telemetry/MedSurg (Inpatient). Status is Inpatient Admission. Condition is Stable. Problem is new. Symptoms have improved. cp 22:31 21:12 12/11/2019 19:54 Hospitalization Ordered by Humberto Voss MD for Inpatient jb4 Admission. Preliminary diagnosis is Nondisplaced fracture of base of neck of right femur. Bed requested for Telemetry/MedSurg (Inpatient). Status is Inpatient Admission. Condition is Stable. Problem is new. Symptoms have improved. cg
[2019-12-11 20:08] LABS: Absolute Lymphocytes (CBC) 0.7 K/uL (0.7-4.9); Basophils % 0.5 % (0-1.3); Hematocrit 33.3 % (39.6-49.0); Lymphocytes % 9.3 % (15.3-44.8); MPV 8.7 fL (7.6-11.3); RBC Red Blood Cell Count 3.75 M/uL (4.33-5.43)
--- NOTE | 2019-12-11 20:24 | RAD REPORT ---
EXAM DESCRIPTION: RAD - Chest Single View - 12/11/2019 8:12 pm CLINICAL HISTORY: fallright femur fracture, preop examination COMPARISON: January 2019 TECHNIQUE: AP portable chest image was obtained 12/11/2019 8:12 pm . 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 No peripheral mass or consolidatio n. No significant failure or volume overload. Calcified granuloma in the left lung field has not locke ged Heart and vasculature are normal. No measurable pleural effusion and no pneumothorax. No acute jagdeep ny abnormality seen. No acute aortic findings suspected. IMPRESSION: Chronic interstitial lung disease present. No acute cardiopulmonary finding. Severity of disease could mask early edema or infiltrate.
[2019-12-11 20:27] LABS: ALT/SGPT 20 U/L (12-78); AST/SGOT 24 U/L (15-37); Albumin 3.7 g/dL (3.4-5.0); Alkaline Phosphatase 61 U/L (45-117); BUN Blood Urea Nitrogen 17 mg/dL (7-18); Bicarbonate 29 mmol/L (21-32); Bilirubin Direct 0.4 mg/dL (0-0.2); Bilirubin Total 1.5 mg/dL (0.2-1.0); Glucose Level 124 mg/dL (74-106); NT PRO-BNP 393 pg/mL (<450); Potassium 4.1 mmol/L (3.5-5.1); Protein, Total 6.7 g/dL (6.4-8.2); Protime INR 1.19; Sodium Level 141 mmol/L (136-145); Troponin (Emerg Dept Use Only) < 0.02 ng/mL (0.0-0.045)
[2019-12-11] MEDS ORDERED: ONDANSETRON 4 MG/2 ML VIAL IV PRN (20:34)
[2019-12-11] MEDS ORDERED: ACETAMINOPHEN 500 MG TAB PO PRN (20:34)
[2019-12-11] MEDS ORDERED: MORPHINE 4 MG/ML SYR IV PRN (20:34)
[2019-12-11] MEDS ORDERED: GLUCAGON 1 MG/VIAL IM PRN (20:37)
[2019-12-11] MEDS ORDERED: D50W 25 GM/50 ML SYRINGE/VIAL IV PRN (20:37)
[2019-12-11 20:44] LABS: Blood Morphology Comment NOT SEEN (NOT SEEN); Platelet Estimate DECR; White Blood Cell Scan OK (OK)
[2019-12-11] MEDS: INSULIN -REGULAR HUMAN 50 UNIT/0.5 ML ML SQ SCH (21:00)
[2019-12-11 21:53] LABS: Urine Blood TRACE (NEG); Urine Glucose NEGATIVE (NEG); Urine Protein TRACE (NEG)
[2019-12-11 22:00] LABS: Urine Bacteria 20-50 /HPF (NONE SEEN)
[2019-12-11 22:01] LABS: Urine Culture Reflex Order REFLEXED; Urine Mucus 1+ /HPF (NONE SEEN)
[2019-12-11 22:51] VITALS: BMI 27.7
[2019-12-12 06:15] LABS: Absolute Lymphocytes (CBC) 0.9 K/uL (0.7-4.9); Basophils % 0.4 % (0-1.3); Hematocrit 32.5 % (39.6-49.0); Lymphocytes % 15.2 % (15.3-44.8); MPV 9.2 fL (7.6-11.3); RBC Red Blood Cell Count 3.65 M/uL (4.33-5.43)
[2019-12-12 06:25] LABS: BUN Blood Urea Nitrogen 15 mg/dL (7-18); Bicarbonate 28 mmol/L (21-32); Glucose Level 194 mg/dL (74-106); Potassium 4.1 mmol/L (3.5-5.1); Sodium Level 138 mmol/L (136-145)
[2019-12-12 07:15] LABS: White Blood Cell Scan OK (OK)
[2019-12-12 07:16] LABS: Blood Morphology Comment NOT SEEN (NOT SEEN); Platelet Estimate DECR
[2019-12-12] MEDS: INSULIN -REGULAR HUMAN 50 UNIT/0.5 ML ML SQ SCH ×4 (07:30→20:07)
[2019-12-12] MEDS ORDERED: TRANEXAMIC ACID 1,000 MG in NA CHLORIDE 0.9% 50 ML IV SCH (08:00)
[2019-12-12] MEDS: VALSARTAN 80 MG TAB PO SCH (09:00)
[2019-12-12] MEDS: FINASTERIDE 5 MG TAB PO SCH (09:00)
[2019-12-12] MEDS: LEVOTHYROXINE SOD 0.05 MG TABLET PO SCH (09:00)
[2019-12-12] MEDS: INSULIN GLARGINE 100 UNITS/ML SQ SCH ×2 (10:02→20:07)
--- NOTE | 2019-12-12 10:43 | EKG ---
Test Date: 2019-12-11 Test Time: 20:19:02 Magazine Hand: BRITTANEY MEASUREMENT RESULTS: Intervals: Rate: 62 UT: QRSD: 150 QT: 428 QTc: 434 Dyer: P: UT: QRS: 77 T: -10 INTERPRETIVE STATEMENTS: normal sinus rhythm Left bundle branch block Abnormal ECG Compared to ECG 01/13/2019 07:15:17 [facility] Electronically Signed On 12-12-19 10:42:59 CDT by Cal Fierro
[2019-12-12] MEDS ORDERED: NA CHLORIDE 0.9% 1,000 ML ONE ×2 (11:48→13:18)
[2019-12-12] MEDS ORDERED: Phenylephrine HCl 10 MG/ML 1 ML VIAL ONE (12:03)
[2019-12-12] MEDS ORDERED: propofoL 200 MG/20 ML VIAL IV ONE (12:03)
[2019-12-12] MEDS ORDERED: FENTANYL CITR 100 MCG/2 ML ONE (12:03)
[2019-12-12] MEDS ORDERED: LIDOCAINE 2% MPF 5 ML VIAL ONE (12:04)
[2019-12-12] MEDS ORDERED: ROCURONIUM 50 MG/5 ML VIAL IV ONE (12:04)
[2019-12-12] MEDS ORDERED: ONDANSETRON 4 MG/2 ML VIAL ONE ×2 (12:04→14:51)
[2019-12-12] MEDS ORDERED: NS 0.9% VIAL 20 ML ONE (12:04)
[2019-12-12] MEDS ORDERED: ETOMIDATE 20 MG/10 ML VIAL IV ONE (12:08)
[2019-12-12] MEDS ORDERED: ESMOLOL HCL 10 ML IV ONE (12:23)
[2019-12-12] MEDS ORDERED: CEFAZOLIN SODIUM 1 GM/VIAL ONE (12:33)
[2019-12-12] MEDS ORDERED: CEFAZOLIN/SWI 1gm 1 GM/10 ML SYR ONE ×2 (12:33→15:44)
[2019-12-12] MEDS ORDERED: GLYCOPYRROLATE 0.2 MG/ML SYR ONE (13:35)
[2019-12-12] MEDS ORDERED: MORPHINE 2 MG/ML SYR IV PRN (13:48)
[2019-12-12] MEDS ORDERED: ONDANSETRON 4 MG/2 ML VIAL IV PRN (13:50)
[2019-12-12] MEDS: MORPHINE 4 MG/ML SYR ONE ×2 (14:23→14:28)
--- NOTE | 2019-12-12 14:49 | RAD REPORT ---
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 The prosthesis is in good position. No fracture or dislocation
[2019-12-12] MEDS ORDERED: MORPHINE 4 MG/ML SYR ONE (14:51)
[2019-12-12] MEDS ORDERED: INSULIN -REGULAR HUMAN 50 UNIT/0.5 ML ML ONE ×2 (15:45→20:37)
[2019-12-12] MEDS: CEFAZOLIN/SWI 1gm 1 GM/10 ML SYR IV SCH (16:11)
[2019-12-12] MEDS: DOCUSATE NA 100 MG CAP PO SCH (20:07)
[2019-12-12] MEDS: ATORVASTATIN 80 MG TAB PO SCH (20:07)
[2019-12-12] MEDS ORDERED: INSULIN GLARGINE 100 UNITS/ML SQ ONE (20:37)
--- NOTE | 2019-12-12 20:50 | P.HP ---
Certification for Inpatient Patient admitted to: Inpatient With expected LOS: >2 Midnights Practitioner: I am a practitioner with admitting privileges, knowledge of patient current condition, hospital course, and medical plan of care. Services: Services provided to patient in accordance with Admission requirements found in Title 42 Section 412.3 of the Code of Federal Regulations Patient History Date of Service: 12/12/19 Reason for admission: FELL AND BROKE R HIP History of Present Illness: MR WILD IS 84 YEARS ODL GM WITH CAD, WAS IN GOOD HEALTH UNTIL HE TRIPPED ON THE LAST STEP AND FELL ON R SIDE TO BREAK R HIP. I SAW HIM THIS AM BEFORE SURGERY. HE CARRIES MILD TO MODERATE RISK OF SURGERY AND RECOVERY PROCESS. HE HAS NO ACUTE CORONARY EVENT OR SYMPTOMS. 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 -: cardiac stent x2 2 02/2017 -: heart valve-2019 Dec. - Family History Mother -: Heart disease, Other (see notes) Notes: CHF Father -: Heart disease - Social History Smoking Status: Former smoker Alcohol use: No CD- Drugs: No Caffeine use: Yes Place of Residence: Home Review of Systems 10-point ROS is otherwise unremarkable Physical Examination - Vital Signs Temperature: 97.1 F Blood Pressure: 130/100 Pulse: 78 Respirations: 17 Pulse Ox (%): 100 - Physical Exam General: Mild distress, Moderate distress HEENT: Atraumatic, PERRLA, Mucous membr. moist/pink, EOMI, Sclerae nonicteric Neck: Supple, 2+ carotid pulse no bruit, No LAD, Without JVD or thyroid abnormality Respiratory: Clear to auscultation bilaterally, Normal air movement Cardiovascular: Regular rate/rhythm, Normal S1 S2 Gastrointestinal: Normal bowel sounds, No tenderness Musculoskeletal: No tenderness Integumentary: No rashes Neurological: Normal gait, Normal speech, Normal strength at 5/5 x4 extr, Normal tone, Normal affect Lymphatics: No axilla or inguinal lymphadenopathy Assessment and Plan - Problems (Diagnosis) (1) Closed right hip fracture Current Visit: Yes Status: Acute Plan: HP HE CARRIES MILD TO MODERATE RISK. CONTINUE LOVENOX POST OP REHAB TRANSFER. Qualifiers: Encounter type: initial encounter Qualified Code(s): S72.001A - Fracture of unspecified part of neck of right femur, initial encounter for closed fracture (2) Coronary angioplasty status Onset Date: 03/05/17 Current Visit: No Status: Chronic (3) Diabetes type 2, controlled Onset Date: 03/05/17 Current Visit: No Status: Chronic Plan: CHECK A1C, LDL HIS LAB IS DONE IN OFFICE. - Advance Directives Does patient have a Living Will: No Does patient have a Durable POA for Healthcare: No
--- NOTE | 2019-12-12 21:21 | CON ---
Date of Consultation: 12/12/2019 Reason For Consultation: Cardiac clearance for right hip fracture. History Of Present Illness: Mr. Zamora is an 84-year-old white male. He is known to us from pr evious office visits and admission. He has a history of diabetes, hypertension, dyslipidemia, benign prostatic hypertrophy, and hypothyroidism. In January of 2019, he underwent a double vessel bypass surgery with an aortic valve replacement at [facility]. A catheterization at that time was done by Dr. Lynch. Since then, he was just seen in my office recently. He has no cardiac complain t. He has no chest pain, shortness of breath, nausea, vomiting, diaphoresis, PND, orthopnea, pedal e blake, palpitation, or syncope. His chest x-ray showed chronic interstitial changes. His EKG was unr emarkable. Past Medical History: As stated above. Allergies: NONE. Review of Systems: Negative. Social History: Negative. Family History: Negative. Medications: At home include Synthroid, valsartan, insulin, aspirin, Plavix, Lipitor, Proscar. Physical Examination: General: He was very pleasant, alert and oriented x3, sinus rhythm, afebrile. HEENT: Negative. Neck: Supple without any bruit, lymphadenopathy, JVD, or thyromegaly. Chest: Clear to auscultation and percussion. Cardiac: Regular rhythm and rate without any murmurs, gallops, or rubs. Abdomen: Benign. Extremities: No clubbing, cyanosis, or edema. Diagnostic Data: Unremarkable. Impression And Plan: Mr. Zamora is 84-year-old, recently had CABG in January of 2019 with aort ic valve replacement, has had a recent echo in the office that were unremarkable. He has a normal ej ection fraction. He has no cardiac symptoms. I think he is at acceptable risk for hip surgery. His Plavix should probably be held for now. I will continue to follow him postoperatively. His other p roblems including hypertension, diabetes, dyslipidemia, benign prostatic hypertrophy, and hypothyroid ism are stable, and he is on the right medication and he has been managed by Dr. Voss. NB/MODL Voice ID: [id number] Report ID: [id number]
[2019-12-12] MEDS: HYDROCODONE/APAP 7.5/325 MG TAB PO PRN (23:40)
[2019-12-12] MEDS ORDERED: HYDROCODONE/APAP 7.5/325 MG TAB ONE (23:52)
--- NOTE | 2019-12-12 23:54 | OP ---
Surgeon: Arpan Yee MD Preoperative Diagnosis: Right femoral neck fracture. Postoperative Diagnosis: Right femoral neck fracture. Procedure Performed: Right hip hemiarthroplasty. Web Site Manager: Liborio. Complications: None. Disposition: Recovery room, stable. Operative Report In Detail: The patient was taken to the operative suite, placed in supine position, induced anesthesia. Right hip was prepped and draped in usual sterile fashion. Posterior approach to the hip was utilized. Hemostasis was verified. Tensor fascia harpal was incised. Gluteus daniel split bluntly. The fractured femoral neck was delivered after elevation of the external rotators tag ged for later reattachment. A 58 femoral head was removed. Osteotomized 1 fingerbreadth above the l maliha trochanter. Reamed in broach technique for 16 lateralized offset prosthesis for the femur, sta ndard 28 ball was appropriate. A layered closure was performed over Hemovac drain. The patient shou ld be in the recovery room shortly. PEREZ Voice ID: [id number] Report ID: [id number]
[2019-12-13] MEDS: CEFAZOLIN/SWI 1gm 1 GM/10 ML SYR IV SCH (00:26)
[2019-12-13 04:39] LABS: Absolute Lymphocytes (CBC) 0.8 K/uL (0.7-4.9); Basophils % 0.5 % (0-1.3); Hematocrit 31.4 % (39.6-49.0); Lymphocytes % 11.8 % (15.3-44.8); MPV 9.3 fL (7.6-11.3); RBC Red Blood Cell Count 3.49 M/uL (4.33-5.43)
[2019-12-13] MEDS: HYDROCODONE/APAP 7.5/325 MG TAB PO PRN ×2 (04:55→09:11)
[2019-12-13] MEDS ORDERED: HYDROCODONE/APAP 7.5/325 MG TAB ONE ×2 (05:07→09:16)
[2019-12-13] MEDS: LEVOTHYROXINE SOD 0.05 MG TABLET PO SCH (05:48)
[2019-12-13] MEDS: INSULIN -REGULAR HUMAN 50 UNIT/0.5 ML ML SQ SCH ×4 (07:30→21:19)
[2019-12-13] MEDS: INSULIN GLARGINE 100 UNITS/ML SQ SCH ×2 (09:00→21:20)
[2019-12-13] MEDS: VALSARTAN 80 MG TAB PO SCH (09:08)
[2019-12-13] MEDS: DOCUSATE NA 100 MG CAP PO SCH ×2 (09:10→21:20)
[2019-12-13] MEDS: FINASTERIDE 5 MG TAB PO SCH (09:10)
[2019-12-13] MEDS ORDERED: VALSARTAN 80 MG TAB ONE (09:16)
[2019-12-13] MEDS ORDERED: HYDROCODONE/APAP 5/325 MG TAB PO PRN (11:19)
[2019-12-13 11:59] LABS: Potassium 3.8 mmol/L (3.5-5.1)
[2019-12-13] MEDS: RIVAROXABAN 10 MG TABLET PO SCH (12:26)
--- NOTE | 2019-12-13 13:51 | P.PN ---
Subjective Date of Service: 12/13/19 Chief Complaint: FELL AND BROKE R HIP Subjective: Improving SP R HIP FRACTURE REPAIR. Review of Systems 10-point ROS is otherwise unremarkable (DRY MOUTH TODAY.) Physical Examination - Vital Signs Temperature: 98.6 F Blood Pressure: 104/68 Pulse: 64 Respirations: 16 Pulse Ox (%): 98 - Physical Exam General: Mild distress, Obese HEENT: Atraumatic, PERRLA, EOMI Neck: Supple, JVD not distended Respiratory: Clear to auscultation bilaterally, Normal air movement Cardiovascular: Regular rate/rhythm, Normal S1 S2 Gastrointestinal: Normal bowel sounds, No tenderness Musculoskeletal: No tenderness Integumentary: No rashes Neurological: Normal speech, Normal tone, Normal affect Lymphatics: No axilla or inguinal lymphadenopathy - Studies Medications List Reviewed: Yes Assessment And Plan - Current Problems (Diagnosis) (1) Closed right hip fracture Current Visit: Yes Status: Acute Plan: HP HE CARRIES MILD TO MODERATE RISK. CONTINUE LOVENOX POST OP REHAB TRANSFER. DOING WELL POST OP DAY 2. Qualifiers: Encounter type: initial encounter Qualified Code(s): S72.001A - Fracture of unspecified part of neck of right femur, initial encounter for closed fracture (2) Coronary angioplasty status Onset Date: 03/05/17 Current Visit: No Status: Chronic (3) Diabetes type 2, controlled Onset Date: 03/05/17 Current Visit: No Status: Chronic Plan: CHECK A1C, LDL HIS LAB IS DONE IN OFFICE. (4) Secondary thrombocytopenia Current Visit: Yes Status: Acute Plan: PLATELETS HAVE BEEN 89K TO 110 FOR LAST FEW YEARS. AT 84, THIS CAN BE FROM MDS OR FATTY LIVER INDUCED CIRRHOSIS- HE HAS MILD SPLENOMEGALY ALSO. WILL FU.
[2019-12-13] MEDS: NACHLORIDE 0.45% 1,000 ML IV SCH (21:20)
[2019-12-13] MEDS: ATORVASTATIN 80 MG TAB PO SCH (21:20)
[2019-12-13] MEDS: HYDROCODONE/APAP 5/325 MG TAB PO PRN (22:07)
[2019-12-14] MEDS: LEVOTHYROXINE SOD 0.05 MG TABLET PO SCH (05:37)
[2019-12-14 05:46] LABS: Absolute Lymphocytes (CBC) 0.8 K/uL (0.7-4.9); Basophils % 0.5 % (0-1.3); Hematocrit 28.4 % (39.6-49.0); Lymphocytes % 13.4 % (15.3-44.8); MPV 9.1 fL (7.6-11.3)
--- NOTE | 2019-12-14 07:56 | RAD REPORT ---
EXAM DESCRIPTION: US - Abdomen Exam Complete - 12/13/2019 10:15 pm CLINICAL HISTORY: SPLENOMEGALY, LOW PLATELTES COMPARISON: ABDOMINAL EXAM COMPLETE dated 01/05/2015 FINDINGS: Gallbladder is not identified. The 2015 ultrasound reported no gallbladder abnormality. No available history to indicate the patient has undergone cholecystectomy. Gallbladder may be contract ed due to nonfasting state and obscured by adjacent bowel. Common bile duct is normal with no common duct stone identified. Liver measuring 19 cm in midclavicular line. This is an increase from 2015. 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 No focal liver lesion is identified. Doppler evaluation shows no portal vein abn ormality. Splenomegaly is again noted measuring 19-20 cm. This is similar to 2015. No focal splenic lesion. No adjacent lymphadenopathy or ascites. The pancreas is normal. No hydronephrosis or suspicious mass in either kidney. Aorta and IVC show no significant finding. No ascites or bulky lymphadenopathy. IMPRESSION: Splenomegaly to 19-20 cm matching the 2015 study. No focal splenic lesion. Liver measured 19 cm on the current study compared to 16 cm in 2015. This may be true liver enlargeme nt or potentially differences in longshore equipment operator technique and image selection. No focal liver lesion or por taye vein abnormality. No ascites or bulky lymphadenopathy.
[2019-12-14] MEDS: INSULIN -REGULAR HUMAN 50 UNIT/0.5 ML ML SQ SCH ×4 (09:24→21:51)
[2019-12-14] MEDS: VALSARTAN 80 MG TAB PO SCH (09:25)
[2019-12-14] MEDS: DOCUSATE NA 100 MG CAP PO SCH ×2 (09:25→21:46)
[2019-12-14] MEDS: INSULIN GLARGINE 100 UNITS/ML SQ SCH ×2 (09:25→21:47)
[2019-12-14] MEDS: FINASTERIDE 5 MG TAB PO SCH (09:26)
[2019-12-14] MEDS: HYDROCODONE/APAP 5/325 MG TAB PO PRN (09:33)
--- NOTE | 2019-12-14 11:56 | P.PN ---
Subjective Date of Service: 12/14/19 Chief Complaint: FELL AND BROKE R HIP Subjective: New changes SP R HIP FRACTURE REPAIR. HE IS STABLE. FEELS WELL. Review of Systems 10-point ROS is otherwise unremarkable General: Weakness, Malaise Physical Examination - Vital Signs Temperature: 98.3 F Blood Pressure: 121/67 Pulse: 76 Respirations: 19 Pulse Ox (%): 96 - Physical Exam General: Mild distress HEENT: Atraumatic, PERRLA, EOMI Neck: Supple, JVD not distended Respiratory: Clear to auscultation bilaterally, Normal air movement Cardiovascular: Regular rate/rhythm, Normal S1 S2 Gastrointestinal: Normal bowel sounds, No tenderness Musculoskeletal: No tenderness Integumentary: No rashes Neurological: Normal speech Lymphatics: No axilla or inguinal lymphadenopathy - Studies Medications List Reviewed: Yes Assessment And Plan - Current Problems (Diagnosis) (1) Closed right hip fracture Current Visit: Yes Status: Acute Plan: HP HE CARRIES MILD TO MODERATE RISK. CONTINUE LOVENOX POST OP REHAB TRANSFER. DOING WELL POST OP DAY 2. TO REHAB IN AM IF POSSIBLE. Qualifiers: Encounter type: initial encounter Qualified Code(s): S72.001A - Fracture of unspecified part of neck of right femur, initial encounter for closed fracture (2) Coronary angioplasty status Onset Date: 03/05/17 Current Visit: No Status: Chronic (3) Diabetes type 2, controlled Onset Date: 03/05/17 Current Visit: No Status: Chronic Plan: CHECK A1C, LDL HIS LAB IS DONE IN OFFICE. (4) Secondary thrombocytopenia Current Visit: Yes Status: Acute Plan: PLATELETS HAVE BEEN 89K TO 110 FOR LAST FEW YEARS. AT 84, THIS CAN BE FROM MDS OR FATTY LIVER INDUCED CIRRHOSIS- HE HAS MILD SPLENOMEGALY ALSO. WILL FU.
[2019-12-14] MEDS: RIVAROXABAN 10 MG TABLET PO SCH (12:48)
[2019-12-14] MEDS ORDERED: GLYCERIN ADULT SUPP PR PRN (13:25)
[2019-12-14] MEDS ORDERED: POLYETHYL GLY 3350 17 GM/DOSE PO PRN (13:26)
--- NOTE | 2019-12-14 13:57 | P.PN ---
Subjective Date of Service: 12/14/19 Chief Complaint: FELL AND BROKE R HIP Subjective: No new changes, Doing well Review of Systems 10-point ROS is otherwise unremarkable Physical Examination - Vital Signs Temperature: 98.1 F Blood Pressure: 121/65 Pulse: 89 Respirations: 18 Pulse Ox (%): 98 - Physical Exam Musculoskeletal: Other (dressings C/D/I NVI) - Studies Medications List Reviewed: Yes Assessment And Plan - Current Problems (Diagnosis) (1) History of right hip hemiarthroplasty Onset Date: ~12/12/19 Current Visit: Yes Status: Acute Plan: he can go to inpatient rehab when safe and stable, He lives with his wife3, she can not assist him. hip needs inpatient Rehabilitation for safety and stability. He will need anticoagulation for 28 days from discharge. pulling drain and changing dressing to aquacel today. follow up in office 2 weeks post op. he has not had a bowel movement yet, primary care is managing it, meds ordered. Discharge Plan: Transfer (rehab unit) Plan to discharge in: 24 Hours
[2019-12-14 15:21] LABS: BUN Blood Urea Nitrogen 12 mg/dL (7-18); Bicarbonate 28 mmol/L (21-32); Glucose Level 260 mg/dL (74-106); Potassium 3.9 mmol/L (3.5-5.1); Sodium Level 134 mmol/L (136-145)
[2019-12-14] MEDS: ATORVASTATIN 80 MG TAB PO SCH (21:47)
[2019-12-15] MEDS: HYDROCODONE/APAP 5/325 MG TAB PO PRN ×2 (04:42→08:14)
[2019-12-15] MEDS: LEVOTHYROXINE SOD 0.05 MG TABLET PO SCH (05:48)
[2019-12-15] MEDS: VALSARTAN 80 MG TAB PO SCH (08:01)
[2019-12-15] MEDS: INSULIN -REGULAR HUMAN 50 UNIT/0.5 ML ML SQ SCH ×2 (08:02→11:29)
[2019-12-15] MEDS: FINASTERIDE 5 MG TAB PO SCH (08:02)
[2019-12-15] MEDS: INSULIN GLARGINE 100 UNITS/ML SQ SCH (08:02)
[2019-12-15] MEDS: DOCUSATE NA 100 MG CAP PO SCH (08:02)
[2019-12-15] MEDS: NACHLORIDE 0.45% 1,000 ML IV SCH (08:03)
[2019-12-15 09:45] VITALS: O2SAT 96
[2019-12-15] MEDS: RIVAROXABAN 10 MG TABLET PO SCH (11:28)
[2019-12-15 12:28] VITALS: BP 94/58; TEMP 97.4
--- NOTE | 2019-12-15 21:08 | P.DS ---
Admission Date: 12/11/19 Discharge Date: 12/15/19 Disposition: TRANSFER TO INPATIENT REHAB Reason for Admission: FELL AND BROKE R HIP - Problems (1) Closed right hip fracture Status: Acute Qualifiers: Encounter type: initial encounter Qualified Code(s): S72.001A - Fracture of unspecified part of neck of right femur, initial encounter for closed fracture (2) Coronary angioplasty status Onset Date: 03/05/17 Status: Chronic (3) Diabetes type 2, controlled Onset Date: 03/05/17 Status: Chronic (4) Secondary thrombocytopenia Status: Acute Brief History of Present Illness: MR WILD IS 84 YEARS ODL GM WITH CAD, WAS IN GOOD HEALTH UNTIL HE TRIPPED ON THE LAST STEP AND FELL ON R SIDE TO BREAK R HIP. I SAW HIM THIS AM BEFORE SURGERY. HE CARRIES MILD TO MODERATE RISK OF SURGERY AND RECOVERY PROCESS. HE HAS NO ACUTE CORONARY EVENT OR SYMPTOMS. Hospital Course: MR. WILD IS DOING GOOD SP SURGERY. HE IS STABLE TO BE TRANSFERRED TO REHAB AND DONE SO TODAY. Vital Signs/Physical Exam: Temp Pulse Resp BP Pulse Ox 97.4 F 78 18 94/58 L 97 12/15/19 12:00 12/15/19 12:00 12/15/19 12:00 12/15/19 12:00 12/15/19 12:00 Laboratory Data at Discharge: WBC 6.1 K/uL (4.3-10.9) 12/14/19 05:32 Hgb 9.9 g/dL (13.6-17.9) L 12/14/19 05:32 Hct 28.4 % (39.6-49.0) L 12/14/19 05:32 Plt Count 83 K/uL (152-406) L 12/14/19 05:32 PT 14.0 SECONDS (9.5-12.5) H 12/11/19 20:00 INR 1.19 12/11/19 20:00 Sodium 134 mmol/L (136-145) L 12/14/19 14:55 Potassium 3.9 mmol/L (3.5-5.1) 12/14/19 14:55 BUN 12 mg/dL (7-18) 12/14/19 14:55 Creatinine 0.77 mg/dL (0.55-1.3) 12/14/19 14:55 Glucose 260 mg/dL (74-106) H 12/14/19 14:55 Magnesium 1.9 mg/dL (1.8-2.4) 12/13/19 04:08 Total Bilirubin 1.5 mg/dL (0.2-1.0) H 12/11/19 20:00 AST 24 U/L (15-37) 12/11/19 20:00 ALT 20 U/L (12-78) 12/11/19 20:00 Alkaline Phosphatase 61 U/L (45-117) 12/11/19 20:00 LDL Cholesterol Direct 50 mg/dL (100-129) L 12/13/19 04:08 Home Medications: Atorvastatin Calcium [Lipitor] 80 mg PO BEDTIME 12/12/19 Clopidogrel Bisulfate [Plavix*] 75 mg PO DAILY 12/12/19 Finasteride [Proscar*] 5 mg PO DAILY 12/12/19 Insulin Glargine,Hum.rec.anlog [Lantus Solostar] 16 units SQ BID 12/12/19 Levothyroxine [Synthroid*] 50 mcg PO DAILY 12/12/19 Valsartan 80 mg PO DAILY 12/12/19 Rivaroxaban [Xarelto*] 10 mg PO NOON tablet 12/15/19 Followup: Humberto Voss MD [ACTIVE - CAN ADMIT] -
== END 2019-12-15 14:47 | DRG 522 ==
LOC: ER 18:32 → ERHOLD 20:38 → 2ND 21:28 → ERHOLD 12-12 14:45 → 2ND 12-13 13:19
PROVIDERS: ADMIT Internal Medicine; ATTEND Internal Medicine
PROC: 30233R1 Transfusion of Nonautologous Platelets into Peripheral Vein, Percutaneous Approach (ICD-10-PCS; 2019-12-12)
PROC: 0SRR0JZ Replacement of Right Hip Joint, Femoral Surface with Synthetic Substitute, Open Approach (ICD-10-PCS; principal; 2019-12-12 12:00)
DX: S72.044A Nondisplaced fracture of base of neck of right femur, initial encounter for closed fracture (principal); D63.8 Anemia in other chronic diseases classified elsewhere; I25.10 Atherosclerotic heart disease of native coronary artery without angina pectoris; E03.9 Hypothyroidism, unspecified; E11.39 Type 2 diabetes mellitus with other diabetic ophthalmic complication; H42 Glaucoma in diseases classified elsewhere; D69.59 Other secondary thrombocytopenia; I10 Essential (primary) hypertension; E66.9 Obesity, unspecified; R16.1 Splenomegaly, not elsewhere classified; W01.0XXA Fall on same level from slipping, tripping and stumbling without subsequent striking against object, initial encounter; Z68.27 Body mass index [BMI] 27.0-27.9, adult; Z95.4 Presence of other heart-valve replacement; Z79.82 Long term (current) use of aspirin; Z79.4 Long term (current) use of insulin; Z79.890 Hormone replacement therapy; Z79.02 Long term (current) use of antithrombotics/antiplatelets; Z79.899 Other long term (current) drug therapy; Z87.891 Personal history of nicotine dependence; Z98.61 Coronary angioplasty status; Z20.828 Contact with and (suspected) exposure to other viral communicable diseases
CPT/HCPCS: 36415; 51702; 71045; 72170; 76700; 80048; 80076; 81003; 81015; 82947; 83036; 83735; 83880; 84165; 84443; 84484; 85025; 85610; 86850; 86900; 86901; 87077; 87086; 87088; 87186; 88305; 88311; 93005; 94010; 96361; 96374; 97116; 97161; 97530; 99285; G0390; J0690; J1815; J2370; J2405; J2704; J3010; J7030; J7040; P9035; U0003

== ENCOUNTER 2019-12-15 10:09 | Inpatient (IN) | payer OTHER ==
--- NOTE | 2019-12-15 11:34 | R.PREADM ---
PRE-ADMISSION SCREENING FORM SCREENING DATE AND TIME 12/15/2019 10:18 (KICK PRESS SETTER) ANTICIPATED REHAB ADMISSION DATE 12/17/2019 REFERRING FACILITY [facility] REFERRAL DATE AND TIME 12/15/2019 10:19 (KICK PRESS SETTER) REFERRAL ROOM# 229 ACUTE ADMIT DATE 12/15/2019 Previous Rehabilitation(s): No. 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 Gopal Merrill M.D. MR# [id number] NAME KRYSTIAN RUBIN ADDRESS [address] [place] [address] PHONE [facility] [address] DATE OF 1935 AGE 84 SSN# [id number] GENDER male MARITAL STATUS RACE unknown race ADMIT FROM 02 - [facility] PRE-HOSPITAL LIVING SETTING 01 - Home (private home/apt. board/care, assisted living, assisted, transitional living) HOME TYPE AND DETAILS Type of home: single family house # of levels in the residence: 1 # of steps within the residence: 0 # of steps to enter the residence: 0 PRE-HOSPITAL LIVING WITH Family/Relatives FAMILY SUPPORT Yes PRIMARY FAMILY CONTACT NAME KAREN RUBIN PRIMARY FAMILY CONTACT PHONE PHONE PRIMARY FAMILY CONTACT ON ADM.? no IS PRIMARY FAMILY CONTACT AUTH. REP.? no 1ST EMERGENCY CONTACT KAREN RUBIN 1ST CONTACT PHONE PHONE 1ST CONTACT ON ADM. no IS 1ST CONTACT AUTH. REP.? no PHONE 2ND CONTACT ON ADM.? no PATIENT EMPLOYMENT STATUS Retired (for age) PATIENT EMPLOYER No Employer PAYOR INFORMATION: 1ST PAYOR NAME MEDICARE 1ST PAYOR PHONE 1ST PAYOR INJURY/ILLNESS DUE TO ACCIDENT? No ANOTHER CONSTITUTION PARTY RESPONSIBLE? No PRIMARY REHAB/ACUTE DIAGNOSIS: RIGHT HIP FRACTURE ONSET DATE 12/11/2019 REHAB IMPAIRMENT CATEGORY (BRENT): 07 Fracture of LE (FracLE) MEETS 60% rule AFFECTED EXTREMITIES: RLE PRIMARY DIAGNOSIS-RELATED SURGERIES: RIGHT HIP HEMIARTHROPLASTY SUMMARY OF ACUTE HOSPITALIZATION: Pt. is a 84 yo Right-handed male of unknown race. On 12/11/2019 he was admitted to [facility] with diagnosis RIGHT HIP FRACTURE. His impairment category is Orthopaedic Disorders 08 - Unilateral Hip Fracture (08.11). Pre-morbidly, Pt. was independent/mod-I in Safety Awareness, Self-Care, and Communication; and he had good Sphincter Control, Transfers Control, and Locomotion. Currently, he has deficits of Endurance, Safety Awareness, Locomotion, Balance, and Sphincter Control . Pt. is now referred to [facility] for acute in-patient rehabilitation in order to maximize patient's functional independence in activities of daily living, strength, ROM, and mobi lity. Patient has realistic goal of being discharged at assistance level 7-Ind to reside at Home with Fami ly/Relatives. Mr. Daily is a 84 year old male that lives independently at home with his , Karen. They have no stairs to enter their home. The patient was in good health until he tripped on the last step while out and fell breaking his right hip He underwent a right hip hemiarthroplasty and is working very well with PT. 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 The patient would most definitely benefit from acute inpatient rehab and has become severely debilitated and unable to live at his prior level of activity at home getting him stronger to be back living at home independently is our goal. It is reasonable and necessary for the patient to come to acute inpatient rehab for approximately 7-10 days in order to return to his prior level of care. He is now being transferred to [facility] Inpatient rehabilitation and is medically stable with relatively stable labs. He is now medically stable but in need of 24 hour nursing, doctor supervision and oversight while receiving active and participate in 3 hours of therapy a day/15 hours per week and receive care with intensive interdisciplinary approach. COVID-19 screening performed; spoke with patient via phone. Patient denies new onset of fever, cough, difficulty breathing, sore throat, body aches and non-allergy nasal congestion in the past 24 hours. Patient denies travel outside of [place] in the past 14 days. Patient denies any contact with someone who has a confirmed diagnosis of or is under investigation for COVID-19 in the past 14 days. Patient has been tested negative for COVID- 19. PAST MEDICAL HISTORY CAD HTN NIDDM GLAUCOMA PAST SURGICAL HISTORY: BILATERAL KNEES BILATERAL CATARACTS CARPAL TUNNEL CAM CARIAC STENT X2 2018 HEART VALVE 2019 MEDICATION ALLERGIES: No Known Drug Allergies (NKDA) ENVIRONMENTAL ALLERGIES: - Substance Allergies None Known - Other Allergies None Known CODE STATUS: Full code WEIGHT/HEIGHT/BMI: WEIGHT 204 lbs HEIGHT 6' 0" BMI 27.7 DIET: - Diet Type Regular - Diet - Solid Texture Regular - Diet - Liquid Texture Regular - Tube Feed N/A REVIEW OF SYSTEMS: - Gen Alert and awake Lying in bed No apparent distress Oriented to: person, time, and place - Vital Signs Temperature: 98.3 F SBP/DBP: 112/58 Pulse: 75 Resp: 16 Vital signs stable, afebrile - CVS RRR VITAL SIGNS Temperature: 98.3 F SBP/DBP: 112/58 Pulse: 75 Resp: 16 Vital signs stable, afebrile MEDICATIONS/TREATMENT: Other- See attached MAR (Medication Administration Record). CURRENT SPHINCTER CONTROL: Pre-hospital bladder status: unspecified # of bladder accidents in the last 7 days prior to screenin Pre-hospital bowel status: unspecified # of bowel accidents in the last 7 days prior to screenin Last Bowel Movement Date: 12/15/2019 CURRENT LOCOMOTION STATUS: distance walked 40 feet ROLLING WALKER DETAILED CURRENT FUNCTIONAL STATUS: - Bladder accident frequency: Ind - No accidents in the past 7 days - Bowel accident frequency: Ind - No accidents in the past 7 days - Walking score based on distance walked: 0(N/A) score based on distance walked: 1(<=50ft) - Wheelchair score based on distance traveled: 0(N/A) QI SCORES: - Self-Care A. Eating 03-Partial/moderate assistance B. Oral hygiene 03-Partial/moderate assistance C. Toileting hygiene 03-Partial/moderate assistance E. Shower/bathe self 03-Partial/moderate assistance F. Upper body dressing 03-Partial/moderate assistance G. Lower body dressing 03-Partial/moderate assistance H. Putting on/taking off footwear 88-Not attempted due to medical condition or safety concerns - Mobility A. Roll left and right 03-Partial/moderate assistance B. Sit to lying 03-Partial/moderate assistance C. Lying to sitting on side of bed 03-Partial/moderate assistance D. Sit to stand 03-Partial/moderate assistance E. Chair/cft-to-hiabh transfer 03-Partial/moderate assistance F. Toilet transfer 03-Partial/moderate assistance G. Car transfer 88-Not attempted due to medical condition or safety concerns I. Walk 10 feet 88-Not attempted due to medical condition or safety concerns J. Walk 50 feet with two turns 88-Not attempted due to medical condition or safety concerns K. Walk 150 feet 88-Not attempted due to medical condition or safety concerns L. Walking 10 feet on uneven surfaces 88-Not attempted due to medical condition or safety concerns M. 1 step (curb) 88-Not attempted due to medical condition or safety concerns N. 4 steps 88-Not attempted due to medical condition or safety concerns O. 12 steps 88-Not attempted due to medical condition or safety concerns P. Picking up object 88-Not attempted due to medical condition or safety concerns R. Wheel 50 feet with two turns 88-Not attempted due to medical condition or safety concerns S. Wheel 150 feet 88-Not attempted due to medical condition or safety concerns - Bladder and Bowel Bladder continence Bowel continence - Endurance Good - Balance Good - Safety Awareness Good CURRENT FUNC. DEFICITS: Self-Care and Mobility CURRENT / PREVIOUS ASSISTIVE DEVICES: Rolling Walker HISTORY OF FALLS. HAS THE PATIENT HAD TWO OR MORE FALLS IN THE PAST YEAR OR ANY FALL WITH INJURY IN T HE PAST YEAR?: No PRIOR SURGERY. DID THE PATIENT HAVE MAJOR SURGERY DURING THE 100 DAYS PRIOR TO ADMISSION?: No THERAPY NOTES FROM ACUTE CARE: Attached. SPECIAL NEEDS: - Safety Concerns Skin breakdown precautions needed due to skin breakdown risk PRECAUTIONS: - Anterior Hip Precaution No abduction No active extension No adduction across midline No external rotation No hip flexion >90 degrees No internal rotation - Posterior Hip Precaution No adduction across midline No external rotation No hip flexion >90 degrees No internal rotation No wheel chair propulsion - Weight Bearing Precaution WBAT right LE PATIENT NEEDS ACTIVE AND ONGOING THERAPEUTIC INTERVENTION OF MULTIPLE THERAPY DISCIPLINES, INCLUDING: - Dietary and Nutrition Adequate Nutrition. Nutritional Education. Nutritional Supplements. PATIENT NEEDS CLOSE MEDICAL SUPERVISION BY A REHABILITATION PHYSICIAN FOR: Coordination of Treatment Team PATIENT REQUIRES 24X7 REHAB NURSING FOR MEDICAL AND FUNCTIONAL MGT. OF THE FOLLOWING DEFICITS: Disease Management Medication Management Patient/Family Education Providing Safe Environment PATIENT REQUIRES INTENSIVE, COORDINATED INTERDISCIPLINARY APPROACH TO REHAB: Arranging Home Equipment/Services Discharge Planning Family Intervention/Training Flat Bed Knitter/Case Management PATIENT REHAB POTENTIAL: Roxann RUBIN is able and expected to receive 3 hours of individualized therapy daily on at least 5 of every 7 days Roxann PIMENTELs prognosis for significant practical improvement within a reasonable period of time a ppears Good Expected level of measurable improvement will be of a practical value to Roxann RUBIN'josias functional capacity or adaptations to impairments Has a viable Discharge Plan Medically appropriate; condition is sufficiently stable to participate in intensive rehab program DISCHARGE PLAN: - Estimated Length of Stay (days) 14. - Consensus on plan Discharge plan has been discussed with primary caregiver. Patient/Family is in agreement with the ellen n. Primary caregiver is in agreement with the plan. - Patient/Family Goals Return home independently. - Planned Living Setting Upon Discharge Home, to live with Family/Relatives. Transitional Living. RECOMMENDED CARE LEVEL: IRF RECOMMENDATION DETAILS: Recommended Admission to Comprehensive Rehabilitation Program to Increase Functional [place] SCREENER'S COMPLETENESS CONFIRMATION: - Screening Confirmation The patient data collection on this preadmission screening form is finished PHYSICIANS REVIEW AND ADMISSION DETERMINATION Admit - Based on my review of the Pre-Admission Screening results, in my medical judgment and experie nce, I concur with the findings and recommend admission to [facility], as this patient requires an IRF level of care. SIGNATURE PANEL: Clinical Applications Manager - [electronically] signed by Daniel Arroyo on 12/15/2019 at 11:22 (KICK PRESS SETTER) Clinical Applications Manager - [electronically] signed by Cora Claire RN on 12/15/2019 at 11:29 (KICK PRESS SETTER) Physician Reviewer - [electronically] signed by Dr. Gopal Merrill M.D. on 12/15/2019 at 11:33 (KICK PRESS SETTER )
--- OUTSIDE RECORDS SUMMARY | 2019-12-15 14:47 | XMS REPORT | Clinical Summary ---
:[address] 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 01/13/2019 Orders Only General Internal Medicine after 12/14/2018 Family History Medical History Relation Name Comments [...] Comments Blood Pressure 122/65 01/22/2019 12:02 PM TAPER/FINISHER Pulse 78 01/22/2019 12:02 PM TAPER/FINISHER Temperature 36.9 C (98.5 F) 01/22/2019 12:02 PM TAPER/FINISHER Respiratory Rate 16 01/22/2019 12:02 PM TAPER/FINISHER Oxygen Saturation 97% 01/22/2019 12:02 PM TAPER/FINISHER Inhaled Oxygen Concentration 28% 01/15/2019 11:36 AM TAPER/FINISHER Weight 88.8 kg (195 lb 12.3 oz) 01/21/2019 8:00 AM TAPER/FINISHER Height 182.9 cm (6') 01/13/2019 4:00 PM TAPER/FINISHER Body Mass Index 26.55 01/13/2019 4:00 PM TAPER/FINISHER Plan of Treatment Health Maintenance Due Date Last Done Comments DIABETIC EYE EXAM 1945 DIABETIC FOOT EXAM 1945 URINE MICROALBUMIN 1946 PNEUMOCOCCAL 65+ YRS (1 of 1 - 2001 [id number]) MEDICARE ANNUAL WELLNESS (YEAR 2 or FIRST 05/14/2002 YEAR if no IPPE) HEMOGLOBIN A1C 07/17/2019 01/15/2019, 01/13/2019 INFLUENZA VACCINE (#1) 2019 Implants Implanted Type Area Commercial Escrow Assistant Device Shelf Model / Identifier Expiration Serial / Date Lot Stent Synergy Otw [id number] - [id number] IMPLAN TS Heart [employer]:INTERV 10/21/2020 [id number] / Implanted: Qty: 1 on 01/17/2019 by Jasmina Cummings MD at [facility] / Description:LDA Stent Synergy Otw [id number] - [id number] IMPLAN TS Heart [employer] 08/05/2020 [id number] / Implanted: Qty: 1 on 01/17/2019 by Jasmina Cummings MD at [facility] / [id number] Description:RCA Valve Heart Noe 3 29mm [id number] - [id number] Valves N /A: Aorta [employer] 08/05/2020 [id number] / Implanted: Qty: 1 on 01/20/2019 by Lobo Mullen MD at [facility] [id number] / Description:Aortic Valve Stent Procedures Procedure Name Priority Date/Time Associated Comments Diagnosis VASCULAR DIAGRAM -SCAN 01/29/2019 12:40 PM TAPER/FINISHER RHYTHM STRIP - SCAN 01/24/2019 8:31 AM TAPER/FINISHER REPORT OF PROCEDURE - 01/24/2019 8:31 ENDOSCOPY SCAN AM TAPER/FINISHER VASCULAR DIAGRAM -SCAN 01/24/2019 8:31 AM TAPER/FINISHER CARDIAC CATH REPORT - 01/24/2019 8:31 SCAN AM TAPER/FINISHER CARDIAC CATH REPORT - 01/24/2019 8:31 SCAN AM TAPER/FINISHER ECHOCARDIOGRAM REPORT - 01/22/2019 9:20 SCAN PM TAPER/FINISHER POCT-GLUCOSE METER Routine 01/22/2019 12:08 Resul ts for this PM TAPER/FINISHER procedure are i n the results section. XR CHEST 1 VIEW STAT 01/22/2019 11:41 Results for this PORTABLE/BEDSIDE AM TAPER/FINISHER procedure a re in the results section. DIGOXIN LEVEL Routine 01/22/2019 8:42 Results fo r this AM TAPER/FINISHER procedure are i n the results section. POCT-GLUCOSE METER Routine 01/22/2019 7:39 Resul ts for this AM TAPER/FINISHER procedure are i n the results section. (CELLAVISION MANUAL Routine 01/22/2019 3:33 Resu lts for this DIFF) AM TAPER/FINISHER procedure are i n the results section. CBC W/PLT COUNT & AUTO Routine 01/22/2019 3:33 R esults for this DIFFERENTIAL AM TAPER/FINISHER procedure are i n the results section. MAGNESIUM Routine 01/22/2019 3:33 Results for this AM TAPER/FINISHER procedure are i n the results section. CBC W/PLT COUNT & AUTO Routine 01/22/2019 3:33 R esults for this DIFFERENTIAL AM TAPER/FINISHER procedure are i n the results section. BASIC METABOLIC PANEL Routine 01/22/2019 3:33 Re sults for this (7) AM TAPER/FINISHER procedure are i n the results section. POCT-GLUCOSE METER Routine 01/21/2019 9:54 Resul ts for this PM TAPER/FINISHER procedure are i n the results section. ECHOCARDIOGRAM REPORT - 01/21/2019 9:23 SCAN PM TAPER/FINISHER TRANSFUSION SERVICE 01/21/2019 6:51 REPORT - SCAN PM TAPER/FINISHER POCT-GLUCOSE METER Routine 01/21/2019 5:46 Resul ts for this PM TAPER/FINISHER procedure are i n the results section. POCT-GLUCOSE METER Routine 01/21/2019 3:49 Resul ts for this PM TAPER/FINISHER procedure are i n the results section. 2D ECHO W/ DOPPLER GAIL 01/21/2019 1:47 Resul ts for this (CW/PW/COLOR) PM TAPER/FINISHER procedure are in the results section. POCT-GLUCOSE METER Routine 01/21/2019 11:33 Resul ts for this AM TAPER/FINISHER procedure are i n the results section. RHYTHM STRIP - SCAN 01/21/2019 11:00 AM TAPER/FINISHER POCT-GLUCOSE METER Routine 01/21/2019 7:43 Resul ts for this AM TAPER/FINISHER procedure are i n the results section. ECG 12-LEAD Routine 01/21/2019 6:08 Results for this AM TAPER/FINISHER procedure are i n the results section. CBC W/PLT COUNT & AUTO Routine 01/21/2019 4:12 R esults for this DIFFERENTIAL AM TAPER/FINISHER procedure are i n the results section. MAGNESIUM Routine 01/21/2019 4:12 Results for this AM TAPER/FINISHER procedure are i n the results section. CBC W/PLT COUNT & AUTO Routine 01/21/2019 4:12 R esults for this DIFFERENTIAL AM TAPER/FINISHER procedure are i n the results section. BASIC METABOLIC PANEL Routine 01/21/2019 4:12 Re sults for this (7) AM TAPER/FINISHER procedure are i n the results section. POCT-GLUCOSE METER Routine 01/20/2019 9:07 Resul ts for this PM TAPER/FINISHER procedure are i n the results section. POCT-GLUCOSE METER Routine 01/20/2019 4:42 Resul ts for this PM TAPER/FINISHER procedure are i n the results section. ECG 12-LEAD Routine 01/20/2019 2:09 PM TAPER/FINISHER Procedure Note - Interface, External Ris In - 01/20/2019 2:11 PM TAPER/FINISHER Ventricular Rate 76 BPM Atrial Rate 76 BPM P-R Interval 238 ms QRS Duration 168 ms Q-T Interval 524 ms QTC Calculation(Bazett) 589 ms P [place] 37 degrees [place] -16 degrees [place] 135 degrees Sinus rhythm with 1st degree A-V block with Premature atrial complexes Left bundle branch block Abnormal ECG ECG 12-LEAD Routine 01/20/2019 2:09 PM TAPER/FINISHER Resu lts for this procedure are in the results section . ECG 12-LEAD Routine 01/20/2019 1:20 PM TAPER/FINISHER Procedure Note - Interface, External Ris In - 01/20/2019 12:24 PM TAPER/FINISHER Ventricular Rate 72 BPM Atrial Rate 72 BPM QRS Duration 170 ms Q-T Interval 528 ms QTC Calculation(Bazett) 578 ms P [place] 66 degrees [place] 49 degrees [place] 114 degrees Sinus rhythm with sinus arrh ythmia with 1st degree A-V block Left bundle branch block Abnormal ECG When compared with ECG of 20:18, Sinus rhythm has replaced At rial fibrillation Vent. rate has decreased BY 82 BPM Left bundle branch block is now Present Criteria for Septal infarct are no longer Present ECG 12-LEAD Routine 01/20/2019 1:20 PM TAPER/FINISHER Resu lts for this procedure are in the results section . ECG 12-LEAD Routine 01/20/2019 1:06 PM TAPER/FINISHER Procedure Note - Interface, External Ris In - 01/20/2019 1:08 PM TAPER/FINISHER Ventricular Rate 74 BPM Atrial Rate 74 BPM QRS Duration 172 ms Q-T Interval 528 ms QTC Calculation(Bazett) 586 ms P [place] 50 degrees [place] -10 degrees [place] 140 degrees Sinus rhythm with 1st degree A-V block Left bundle branch block Abnormal ECG ECG 12-LEAD Routine 01/20/2019 1:06 PM TAPER/FINISHER Resu lts for this procedure are in the results section . ECG 12-LEAD Routine 01/20/2019 1:06 PM TAPER/FINISHER Procedure Note - Interface, External Ris In - 01/20/2019 1:07 PM TAPER/FINISHER Ventricular Rate 75 BPM Atrial Rate 75 BPM QRS Duration 174 ms Q-T Interval 526 ms QTC Calculation(Bazett) 587 ms P [place] 58 degrees [place] -1 degrees [place] 148 degrees Sinus rhythm with 1st degree A-V block Left bundle branch block Abnormal ECG POCT-GLUCOSE METER Routine 01/20/2019 12:59 Resul ts for this PM TAPER/FINISHER procedure are i n the results section. PREPARE LEUKO-REDUCED Routine 01/20/2019 11:16 Re sults for this RBC AM TAPER/FINISHER procedure are i n the results section. POCT-ACT Routine 01/20/2019 10:14 Results for this AM TAPER/FINISHER procedure are i n the results section. URINALYSIS W/ REFLEX Routine 01/20/2019 9:19 Res ults for this URINE CULTURE AM TAPER/FINISHER procedure are in the results section. URINE CULTURE Routine 01/20/2019 9:19 Results fo r this AM TAPER/FINISHER procedure are i n the results section. TRANSESOPHAGEAL ECHO Routine 01/20/2019 7:49 Res ults for this AM TAPER/FINISHER procedure are i n the results section. CONT WAVE PULSED Routine 01/20/2019 7:23 DOPPLER AM TAPER/FINISHER COLOR-FLOW MAPPING Routine 01/20/2019 7:23 AM TAPER/FINISHER TAVR / STEPHEN MCR - IP 01/20/2019 7:06 Nonrheumatic a ortic PROC ONLY AM TAPER/FINISHER valve stenosis Case Notes (1)CASE 1135/ Mac ANESTHESIA (CELLAVISION MANUAL DIFF) Routine 01/20/2019 4:04 AM TAPER/FINISHER Results for this procedure are i n the results section . CBC W/PLT COUNT & AUTO Routine 01/20/2019 4:04 AM TAPER/FINISHER Results for this DIFFERENTIAL procedure are i n the results section . APTT Routine 01/20/2019 4:04 AM TAPER/FINISHER Resu lts for this procedure are i n the results section . MAGNESIUM Routine 01/20/2019 4:04 AM TAPER/FINISHER Resu lts for this procedure are i n the results section . CBC W/PLT COUNT & AUTO Routine 01/20/2019 4:04 AM TAPER/FINISHER Results for this DIFFERENTIAL procedure are i n the results section . BASIC METABOLIC PANEL (7) Routine 01/20/2019 4:04 AM TAPER/FINISHER Results for this procedure are i n the results section . POCT-GLUCOSE METER Routine 01/19/2019 11:09 PM TAPER/FINISHER Results for this procedure are i n the results section . APTT Routine 01/19/2019 5:51 PM TAPER/FINISHER Resu lts for this procedure are i n the results section . POCT-GLUCOSE METER Routine 01/19/2019 4:48 PM TAPER/FINISHER Results for this procedure are i n the results section . POCT-GLUCOSE METER Routine 01/19/2019 11:26 AM TAPER/FINISHER Results for this procedure are i n the results section . APTT Routine 01/19/2019 11:24 AM TAPER/FINISHER Resu lts for this procedure are i n the results section . POCT-GLUCOSE METER Routine 01/19/2019 8:05 AM TAPER/FINISHER Results for this procedure are i n the results section . (CELLAVISION MANUAL DIFF) Routine 01/19/2019 4:02 AM TAPER/FINISHER Results for this procedure are i n the results section . CBC W/PLT COUNT & AUTO Routine 01/19/2019 4:02 AM TAPER/FINISHER Results for this DIFFERENTIAL procedure are i n the results section . LACTIC ACID, VENOUS Routine 01/19/2019 4:02 AM TAPER/FINISHER Results for this procedure are i n the results section . MAGNESIUM Routine 01/19/2019 4:02 AM TAPER/FINISHER Resu lts for this procedure are i n the results section . CBC W/PLT COUNT & AUTO Routine 01/19/2019 4:02 AM TAPER/FINISHER Results for this DIFFERENTIAL procedure are i n the results section . BASIC METABOLIC PANEL (7) Routine 01/19/2019 4:02 AM TAPER/FINISHER Results for this procedure are i n the results section . POCT-GLUCOSE METER Routine 01/18/2019 10:39 PM TAPER/FINISHER Results for this procedure are i n the results section . TRANSFUSION SERVICE REPORT 01/18/2019 6:02 PM TAPER/FINISHER - SCAN POCT-GLUCOSE METER Routine 01/18/2019 5:40 PM TAPER/FINISHER Results for this procedure are i n the results section . POCT-GLUCOSE METER Routine 01/18/2019 12:30 PM TAPER/FINISHER Results for this procedure are i n the results section . POCT-GLUCOSE METER Routine 01/18/2019 12:16 PM TAPER/FINISHER Results for this procedure are i n the results section . POCT-GLUCOSE METER Routine 01/18/2019 7:49 AM TAPER/FINISHER Results for this procedure are i n the results section . CBC W/PLT COUNT & AUTO Routine 01/18/2019 3:43 AM TAPER/FINISHER Results for this DIFFERENTIAL procedure are i n the results section . MAGNESIUM Routine 01/18/2019 3:43 AM TAPER/FINISHER Resu lts for this procedure are i n the results section . CBC W/PLT COUNT & AUTO Routine 01/18/2019 3:43 AM TAPER/FINISHER Results for this DIFFERENTIAL procedure are i n the results section . BASIC METABOLIC PANEL (7) Routine 01/18/2019 3:43 AM TAPER/FINISHER Results for this procedure are i n the results section . APTT Routine 01/18/2019 3:43 AM TAPER/FINISHER Resu lts for this procedure are i n the results section . ECG 12-LEAD Routine 01/17/2019 8:18 PM TAPER/FINISHER Resu lts for this procedure are i n the results section . ECG 12-LEAD Routine 01/17/2019 8:18 PM TAPER/FINISHER Procedure Note - Interface, External Ris In - 01/17/2019 7:48 PM TAPER/FINISHER Ventricular Rate 154 BPM Atrial Rate 90 BPM QRS Duration 94 ms Q-T Interval 314 ms QTC Calculation(Bazett) 502 ms R [place] 20 degrees [place] 90 degrees Atrial fibrillation with rap id ventricular response Septal infarct (cited on or before 17-JAN-2019) Abnormal ECG When compared with ECG of 20:17, No significant change was fo und ECG 12-LEAD Routine 01/17/2019 8:17 PM TAPER/FINISHER Resu lts for this procedure are in the results section . ECG 12-LEAD Routine 01/17/2019 8:17 PM TAPER/FINISHER Procedure Note - Interface, External Ris In - 01/17/2019 7:47 PM TAPER/FINISHER Ventricular Rate 149 BPM Atrial Rate 136 BPM QRS Duration 98 ms Q-T Interval 342 ms QTC Calculation(Bazett) 538 ms R [place] 18 degrees [place] 90 degrees Atrial fibrillation with rap id ventricular response Anteroseptal infarct , age u ndetermined Abnormal ECG When compared with ECG of 20:52, Anteroseptal infarct is now Present Nonspecific T wave abnormali ty no longer evident in Inferior leads POCT-GLUCOSE METER Routine 01/17/2019 4:51 Resul ts for this PM TAPER/FINISHER procedure are i n the results section. POCT-ACT Routine 01/17/2019 1:07 Results for this PM TAPER/FINISHER procedure are i n the results section. CORONARY ANGIOS & 01/17/2019 11:45 Atherosclerosis of STENT AM TAPER/FINISHER [place] coronary artery of [place] heart without angina pectoris Case Notes 2nd case POCT-GLUCOSE METER Routine 01/17/2019 7:17 AM TAPER/FINISHER Results for this procedure are i n the results section . CBC W/PLT COUNT & AUTO Routine 01/17/2019 5:07 AM TAPER/FINISHER Results for this DIFFERENTIAL procedure are i n the results section . TYPE AND SCREEN, AUTOMATED Routine 01/17/2019 5:07 AM TAPER/FINISHER Results for this procedure are i n the results section . PROTHROMBIN TIME/INR Routine 01/17/2019 5:07 AM TAPER/FINISHER Results for this procedure are i n the results section . MAGNESIUM Routine 01/17/2019 5:07 AM TAPER/FINISHER Resu lts for this procedure are i n the results section . CBC W/PLT COUNT & AUTO Routine 01/17/2019 5:07 AM TAPER/FINISHER Results for this DIFFERENTIAL procedure are i n the results section . BASIC METABOLIC PANEL (7) Routine 01/17/2019 5:07 AM TAPER/FINISHER Results for this procedure are i n the results section . APTT Routine 01/17/2019 5:07 AM TAPER/FINISHER Resu lts for this procedure are i n the results section . POCT-GLUCOSE METER Routine 01/16/2019 9:57 PM TAPER/FINISHER Results for this procedure are i n the results section . POCT-GLUCOSE METER Routine 01/16/2019 5:22 PM TAPER/FINISHER Results for this procedure are i n the results section . POCT-GLUCOSE METER Routine 01/16/2019 11:55 AM TAPER/FINISHER Results for this procedure are i n the results section . POCT-GLUCOSE METER Routine 01/16/2019 7:38 AM TAPER/FINISHER Results for this procedure are i n the results section . CBC W/PLT COUNT & AUTO Routine 01/16/2019 4:15 AM TAPER/FINISHER Results for this DIFFERENTIAL procedure are i n the results section . APTT Routine 01/16/2019 4:15 AM TAPER/FINISHER Resu lts for this procedure are i n the results section . MAGNESIUM Routine 01/16/2019 4:15 AM TAPER/FINISHER Resu lts for this procedure are i n the results section . CBC W/PLT COUNT & AUTO Routine 01/16/2019 4:15 AM TAPER/FINISHER Results for this DIFFERENTIAL procedure are i n the results section . BASIC METABOLIC PANEL (7) Routine 01/16/2019 4:15 AM TAPER/FINISHER Results for this procedure are i n the results section . POCT-GLUCOSE METER Routine 01/15/2019 9:22 PM TAPER/FINISHER Results for this procedure are i n the results section . POCT-GLUCOSE METER Routine 01/15/2019 5:50 PM TAPER/FINISHER Results for this procedure are i n the results section . POCT-GLUCOSE METER Routine 01/15/2019 3:12 PM TAPER/FINISHER Results for this procedure are i n the results section . CAROTID DOPPLER BILATERAL Routine 01/15/2019 3:00 PM TAPER/FINISHER Results for this procedure are i n the results section . ARTERIAL DOPPLER LEGS Routine 01/15/2019 1:50 PM TAPER/FINISHER Results for this BILATERAL procedure are i n the results section . POCT-GLUCOSE METER Routine 01/15/2019 12:15 PM TAPER/FINISHER Results for this procedure are i n the results section . APTT Routine 01/15/2019 9:20 AM TAPER/FINISHER Resu lts for this procedure are i n the results section . POCT-GLUCOSE METER Routine 01/15/2019 7:45 AM TAPER/FINISHER Results for this procedure are i n the results section . CBC W/PLT COUNT & AUTO Routine 01/15/2019 2:13 AM TAPER/FINISHER Results for this DIFFERENTIAL procedure are i n the results section . HEMOGLOBIN A1C Routine 01/15/2019 2:13 AM TAPER/FINISHER Re sults for this procedure are i n the results section . MAGNESIUM Routine 01/15/2019 2:13 AM TAPER/FINISHER Resu lts for this procedure are i n the results section . CBC W/PLT COUNT & AUTO Routine 01/15/2019 2:13 AM TAPER/FINISHER Results for this DIFFERENTIAL procedure are i n the results section . BASIC METABOLIC PANEL (7) Routine 01/15/2019 2:13 AM TAPER/FINISHER Results for this procedure are i n the results section . APTT Routine 01/15/2019 2:13 AM TAPER/FINISHER Resu lts for this procedure are i n the results section . POCT-GLUCOSE METER Routine 01/14/2019 10:00 PM TAPER/FINISHER Results for this procedure are i n the results section . ECHOCARDIOGRAM REPORT - SCAN 01/14/2019 9:20 PM TAPER/FINISHER APTT Routine 01/14/2019 7:39 PM TAPER/FINISHER Resu lts for this procedure are i n the results section . OCCULT BLOOD, STOOL Routine 01/14/2019 7:39 PM TAPER/FINISHER Results for this procedure are i n the results section . TRANSFUSION SERVICE REPORT - 01/14/2019 5:50 PM TAPER/FINISHER SCAN POCT-GLUCOSE METER Routine 01/14/2019 5:29 PM TAPER/FINISHER Results for this procedure are i n the results section . CTA CHEST Routine 01/14/2019 4:46 PM TAPER/FINISHER Resu lts for this procedure are i n the results section . CTA ABDOMEN & PELVIS Routine 01/14/2019 4:46 PM TAPER/FINISHER Results for this procedure are i n the results section . POCT-GLUCOSE METER Routine 01/14/2019 2:21 PM TAPER/FINISHER Results for this procedure are i n the results section . POCT-GLUCOSE METER Routine 01/14/2019 12:40 PM TAPER/FINISHER Results for this procedure are i n the results section . 2D ECHO W/ DOPPLER GAIL 01/14/2019 11:00 AM TAPER/FINISHER Results for this (CW/PW/COLOR) procedure are in the results section . APTT Routine 01/14/2019 10:01 AM TAPER/FINISHER Resu lts for this procedure are i n the results section . POCT-GLUCOSE METER Routine 01/14/2019 8:07 AM TAPER/FINISHER Results for this procedure are i n the results section . TROPONIN I Add-On 01/14/2019 2:16 AM TAPER/FINISHER Resu lts for this procedure are i n the results section . MAGNESIUM Routine 01/14/2019 2:16 AM TAPER/FINISHER Resu lts for this procedure are i n the results section . BASIC METABOLIC PANEL (7) Routine 01/14/2019 2:16 AM TAPER/FINISHER Results for this procedure are i n the results section . CBC W/PLT COUNT & AUTO Routine 01/14/2019 1:51 AM TAPER/FINISHER Results for this DIFFERENTIAL procedure are i n the results section . CBC W/PLT COUNT & AUTO Routine 01/14/2019 1:51 AM TAPER/FINISHER Results for this DIFFERENTIAL procedure are i n the results section . PT/APTT Routine 01/14/2019 1:51 AM TAPER/FINISHER Resu lts for this procedure are i n the results section . XR CHEST 1 VIEW Routine 01/13/2019 10:20 PM TAPER/FINISHER R esults for this PORTABLE/BEDSIDE procedure a re in the results section . POCT-GLUCOSE METER Routine 01/13/2019 9:30 PM TAPER/FINISHER Results for this procedure are i n the results section . ECG 12-LEAD Routine 01/13/2019 8:52 PM TAPER/FINISHER Resu lts for this procedure are i n the results section . ECG 12-LEAD Routine 01/13/2019 8:52 PM TAPER/FINISHER Procedure Note - Interface, External Ris In - 01/13/2019 9:02 PM TAPER/FINISHER Ventricular Rate 115 BPM Atrial Rate 115 BPM QRS Duration 94 ms Q-T Interval 370 ms QTC Calculation(Bazett) 511 ms R [place] 53 degrees [place] -13 degrees Atrial fibrillation with rap id ventricular response with premature ventricular or aberrantly conducted complexes Nonspecific ST abnormality , probably digitalis effect Abnormal QRS-T angle, consid er primary T wave abnormality Abnormal ECG When compared with ECG of 20:51, Significant changes have occ urred ECG 12-LEAD Routine 01/13/2019 8:51 PM TAPER/FINISHER Procedure Note - Interface, External Ris In - 01/13/2019 9:02 PM TAPER/FINISHER Ventricular Rate 107 BPM Atrial Rate 107 BPM P-R Interval 184 ms QRS Duration 98 ms Q-T Interval 348 ms QTC Calculation(Bazett) 464 ms P [place] 44 degrees [place] 53 degrees [place] 10 degrees Sinus tachycardia with [place] ture atrial complexes Nonspecific ST abnormality Abnormal ECG No previous ECGs available ECG 12-LEAD Routine 01/13/2019 8:51 PM TAPER/FINISHER Resu lts for this procedure are i n the results section . ABORH, MANUAL STAT 01/13/2019 8:35 PM TAPER/FINISHER Res ults for this procedure are i n the results section . TSH/FREE T4 IF INDICATED Routine 01/13/2019 8:35 PM TAPER/FINISHER Results for this procedure are i n the results section . TYPE AND SCREEN, Routine 01/13/2019 6:39 PM TAPER/FINISHER Results for this AUTOMATED procedure are i n the results section . B-TYPE NATRIURETIC FACTOR Routine 01/13/2019 6:39 PM TAPER/FINISHER Results for this (BNP) procedure are i n the results section . HEMOGLOBIN A1C AP Routine 01/13/2019 6:39 PM TAPER/FINISHER Re sults for this procedure are i n the results section . TROPONIN I Add-On 01/13/2019 6:38 PM TAPER/FINISHER Resu lts for this procedure are i n the results section . LIPID PANEL Add-On 01/13/2019 6:38 PM TAPER/FINISHER Resu lts for this procedure are i n the results section . HEPATIC FUNCTION PANEL Add-On 01/13/2019 6:38 PM TAPER/FINISHER Results for this procedure are i n the results section . PT/APTT Routine 01/13/2019 6:38 PM TAPER/FINISHER Resu lts for this procedure are i n the results section . MAGNESIUM Routine 01/13/2019 6:38 PM TAPER/FINISHER Resu lts for this procedure are i n the results section . BASIC METABOLIC PANEL (7) Routine 01/13/2019 6:38 PM TAPER/FINISHER Results for this procedure are i n the results section . POCT-GLUCOSE METER Routine 01/13/2019 6:25 PM TAPER/FINISHER Results for this procedure are i n the results section . after 12/14/2018 Results VASCULAR DIAGRAM -SCAN (01/29/2019 12:40 PM TAPER/FINISHER)Only the most recent of2 results within the time period is included. Narrative Performed At This result has an attachment that is no t available. RHYTHM STRIP - SCAN (01/24/2019 8:31 AM TAPER/FINISHER)Only the most recent of2 results within the time period is included. Narrative Performed At This result has an attachment that is no t available. EKG-SCANNED (01/24/2019 8:31 AM TAPER/FINISHER) Narrative Performed At This result has an attachment that is no t available. CARDIAC CATH REPORT - SCAN (01/24/2019 8:31 AM TAPER/FINISHER) Narrative Performed At This result has an attachment that is no t available. CARDIAC CATH REPORT - SCAN (01/24/2019 8:31 AM TAPER/FINISHER) Narrative Performed At This result has an attachment that is no t available. ECHOCARDIOGRAM REPORT - SCAN (01/22/2019 9:20 PM TAPER/FINISHER) Narrative Performed At This result has an attachment that is no t available. POC-Glucose meter (01/22/2019 12:08 PM TAPER/FINISHER)Only the most recent of37 results within the time period is included. POC-Glucose Meter 91Comment: : 70 - 110 mg/dL JAYJAY DANGELO TESTED AT [address], [id number]: [facility] Director/Technic ministerio ID = [id number] for LISA GUZMAN Specimen Blood Performing Organization Address City/State/Zipcode Phone Number [facility] JONESRani [address] [address] CENTER XR chest 1 view portable / bedside (01/22/2019 11:41 AM TAPER/FINISHER)Only the most recent of2 resultswithin the time [...] central pulmonary venous congestion . Signed: Kat Menjiavr MD Report Verified Date/Time: 01/22/2019 11:51:04 Reading Location: [facility] Reading Room Procedure Note Interface, External Ris In - 01/22/2019 12:01 PM TAPER/FINISHER FINAL REPORT INDICATION: chf COMPARISON: None TECHNIQUE: Single frontal view of the est. FINDINGS: Lungs and pleura: Clear lungs. No effusi on. Heart and mediastinum: Normal heart size . Unremarkable mediastinal contours. Osseous structures: No acute abnormality . Other: None. IMPRESSION: Mild central pulmonary venous congestion . Signed: Kat Menjivar MD Report Verified Date/Time: 01/22/2019 1 1:51:04 Reading Location: [facility] Reading Room Performing Organization Address City/State/Zipcode Phone Number [facility] Digoxin level (01/22/2019 8:42 AM TAPER/FINISHER) Pathologist Sig nature Digoxin Lvl 0.6 (L) 0.8 - 2.0 ng/mL [facility] Specimen Blood Narrative Performed At Draw 1 hour prior to morning digoxin dose [facility] Performing Organization Address City/[facility]/Zipcode Phone Number [facility] [address] [place] [address] CENTER Manual Differential (01/22/2019 3:33 AM TAPER/FINISHER)Only the most recent of3 results within the time period is included. Pathologist Sig nature % Neutros 83 % [facility] % Lymphs 6 % [facility] % Monos 5 % [facility] % Eos 1 % [facility] % Metamyelo 1 (H) 0 - 0 % [facility] % Myelo 2 (H) 0 - 0 % [facility] % Atypical Lymphs 2 (H) 0 - 0 % [facility] # Neutros 8.72 (H) 1.78 - 5.38 K/ul [facility] # Lymphs 0.63 (L) 1.32 - 3.57 K/ul [facility] # Monos 0.53 0.30 - 0.82 K/uL [facility] # Eos 0.11 0.04 - 0.54 K/uL [facility] # Metamyelo 0.11 (H) 0.00 - 0.00 K/uL [facility] # Myelo 0.21 (H) 0.00 - 0.00 K/uL [facility] # Atypical Lymphs 0.21 (H) 0.00 - 0.00 K/uL [facility] Total Counted 100 [facility] RBC Morphology Normal [facility] Smudge Cells Present [facility] Giant Platelet Present [facility] Platelet Conc Decreased [facility] Specimen Blood - Entire left upper arm (body stru cture) Narrative Performed At Received comment: [facility] User comments: Slide comments: Performing Organization Address City/State/Zipcode Phone Number [facility] [address] [place] [address] CENTER CBC with platelet count + automated diff (01/22/2019 3:33 AM TAPER/FINISHER)Only the most recent of9 resultswithin the time period is included. Pathologist Sig nature WBC 10.5 3.5 - 10.5 K/L [facility] RBC 3.88 (L) 4.63 - 6.08 M/L [facility] Hemoglobin 11.7 (L) 13.7 - 17.5 GM/DL [facility] Hematocrit 34.0 (L) 40.1 - 51.0 % [facility] MCV 87.6 79.0 - 92.2 fL [facility] MCH 30.2 25.7 - 32.2 pg [facility] MCHC 34.4 32.3 - 36.5 GM/DL [facility] RDW 14.6 (H) 11.6 - 14.4 % [facility] Platelets 124 (L) 150 - 450 K/CU MM [facility] MPV 11.9 9.4 - 12.4 fL [facility] nRBC 0 0 - 0 /100 WBC [facility] Specimen Blood - Entire left upper arm (body stru cture) Performing Organization Address City/[facility] Cent[facility] Phone Number [address] [address] CENTER Magnesium (01/22/2019 3:33 AM TAPER/FINISHER)Only the most recent of10 resultswithin the time period is included. Pathologist Sig nature Magnesium 2.0 1.6 - 2.6 mg/dL [facility] Specimen Blood - Entire left upper arm (body stru cture) Performing Organization Address City/[facility]/Zipcode Phone Number [address] [address] CENTER Basic Metabolic Panel (01/22/2019 3:33 AM TAPER/FINISHER)Only the most recent of10 results within the time period is included. Sodium 134 (L) 136 - 145 meq/L [facility] Potassium 4.1 3.5 - 5.1 meq/L [facility] Chloride 101 98 - 107 meq/L [facility] CO2 27 22 - 29 meq/L [facility] BUN 13 7 - 21 mg/dL [facility] Creatinine 0.74 0.57 - 1.25 [facility] mg/dL [facility] Glucose 125 (H) 70 - 105 mg/dL [facility] Calcium 8.6 8.4 - 10.2 [facility] mg/dL [facility] EGFR 101Comment: mL/min/1.73 sq [facility] ESTIMATED GFR IS NOT [facility] ACCURATE CENTER CREATININE CLEARANCE IN PREDICTING GLOMERULAR FILTRATION RATE. ESTIMATED GFR IS NOT APPLICABLE FOR DIALYSIS PATIENTS. Specimen Blood - Entire left upper arm (body stru cture) Performing Organization Address City/State/Zipcode Phone Number [facility] [address] [place] [address] CENTER ECHOCARDIOGRAM REPORT - SCAN (01/21/2019 9:23 PM TAPER/FINISHER) Narrative Performed At This result has an attachment that is no t available. TRANSFUSION SERVICE REPORT - SCAN (01/21/2019 6:51 PM TAPER/FINISHER)Only the most recent of3 resultswithin the time period is included. Narrative Performed At This result has an attachment that is no t available. 2D Echo W/Doppler(CW/PW/Color) (01/21/2019 1:47 PM TAPER/FINISHER) Pathologist Sig nature Ejection Fraction [facility] Specimen Narrative Performed At Transthoracic Echocardiography Report (T TE) [facility] Demographics Patient Name KRYSTIAN RUBIN Date of Study 01/21/2019 LIU Gender Male Visit Number [id number] Race Unknown Room Number C625 Number Date of 1935 Referring Houston Miranda MD Physician Age 83 year(s) Freelance Writer Alanna Wolf RD CS Heating And Ventilation Engineer Zuleika Ziegler RD Interpreting Kristin becker Physician [...] External Ris In - 01/22/2019 11:46 AM TAPER/FINISHER Transthoracic Echocardiography Report (TTE) Demographics Patient Name KRYSTIAN RUBIN Date of Study 01/21/2019 LIU Gende r Male Visit Number [id number] Race Unknown Room Number C625 Number Date of 1935 Refer ring MD Allan Pickens Age 83 year(s) Sonog rapher Alanna Wolf RD Heating And Ventilation Engineer Zuleika Ziegler RDCS Inter preting Allan Ramirez [...] normal limits. Right Atrium RA size is carols l. Aortic Valve A Noe percuta neous [...] TR Gradient: 33.63 mmHg Performing Organization Address City/State/[facility] Centercode Phone Number [facility] ECG 12 lead (01/21/2019 6:08 AM TAPER/FINISHER)Only the most recent of8 resultswithin the time period is included. Specimen Narrative Performed At Ventricular Rate 84 BPM GE MUSE Atrial Rate 84 BPM P-R Interval 202 ms QRS Duration 166 ms Q-T Interval 472 ms QTC Calculation(Bazett) 557 ms P [place] 70 degrees R [place] 4 degrees T [place] 156 degrees Sinus rhythm with Premature supraventric ular complexes Left bundle branch block Abnormal ECG Confirmed by MD JANA, MISAEL Baires ([id number]) on 01/22/20 19 8:30:13 AM Procedure Note Interface, External Ris In - 01/21/2019 8:30 AM TAPER/FINISHER Ventricular Rate 84 BPM Atrial Rate 84 BPM P-R Interval 202 ms QRS Duration 166 ms Q-T Interval 472 ms QTC Calculation(Bazett) 557 ms P [place] 70 degrees R [place] 4 degrees T [place] 156 degrees Sinus rhythm with Premature supraventric ular complexes Left bundle branch block Abnormal ECG Confirmed by MD JANA, MISAEL Baires ([id number]) on 01/21/2019 8:30:13 AM Performing Organization Address City/[facility] Centercode Phone Number GE MUSE Prepare Leuko-Red RBC (01/20/2019 11:16 AM TAPER/FINISHER) Pathologist Sig nature CROSSMATCH COMPATIBLE SAFETRACE TX Unit ABO A Neg SAFETRACE TX UNIT NUMBER [id number] SAFETRACE TX Status RETURNED FROM ISSUE SAFETRACE TX Blood Bank Product RED BLOOD CELLS SAFETRACE TX PRODUCT CODE [id number] SAFETRACE TX CROSSMATCH COMPATIBLE SAFETRACE TX Unit ABO A Neg SAFETRACE TX UNIT NUMBER [id number] SAFETRACE TX Status RETURNED FROM ISSUE SAFETRACE TX Blood Bank Product RED BLOOD CELLS SAFETRACE TX PRODUCT CODE [id number] SAFETRACE TX Specimen Other Performing Organization Address [facility] Phone Number SAFETRACE TX POC ACTIVATED CLOTTING TIME (01/20/2019 10:14 AM TAPER/FINISHER)Only the most recent of2 resultswithin the time period is included. Activated Clotting 351Comment: sec [facility] Time Reference Range: [facility] 74-137 seconds, [place] Baseline/TESTED AT [address] [address] Specimen Blood Performing Organization Address [facility] Phone Number [address] [phone] CENTER Urinalysis w/Microscopic + Reflex to Culture (01/20/2019 9:19 AM TAPER/FINISHER) Pathologist Amaris Color, UA Yellow [facility] Clarity, UA Cloudy [facility] Specific [place], 1.011 1.001 - 1.035 [facility] pH, UA 5.5 5.0 - 8.0 [facility] Protein, UA 10 mg/dL (A) Negative [facility] Glucose, UA Negative Negative [facility] Ketones, UA Negative Negative [facility] Bilirubin, UA Negative Negative [facility] Blood, UA Moderate (A) Negative [facility] Nitrite, UA Positive (A) Negative [facility] Leukocytes, UA Large (A) Negative [facility] Urobilinogen, UA 0.2 0.2 - 1.0 mg/dL [facility] RBC, UA 10 /HPF [facility] WBC, UA 512 /HPF [facility] Bacteria, UA Many [facility] Mucus Occasional [facility] Specimen Source [facility] Specimen Urine - Urinary catheter, device (physic al object) Performing Organization Address [facility] Phone Number [facility] [address] [place] [address] CENTER Urine culture (01/20/2019 9:19 AM TAPER/FINISHER) Pathologist Sig nature Result >100,000 col/mL [facility] Escherichia coli (A) [facility] Specimen Urine - Urinary catheter, device (physic [...] + Sulfamethoxazole <=20: Susceptible Performing Organization Address City/[facility]/Zipcode Phone Number [facility] [address] [place] [address] CENTER Transesophageal echo (01/20/2019 7:49 AM TAPER/FINISHER) Pathologist Sig nature Ejection Fraction [facility] Specimen Narrative Performed At Transesophageal Echocardiography Report (SHAN) [facility] LYDIA [facility] Demographics Patient Name KRYSTIAN RUBIN Date of Study 01/20/2019 LIU Gender Male Visit Number [id number] Race Unknown Room Number 6104 Number Date of 1935 Referring Houston Miranda MD Physician Age 83 year(s) Freelance Writer Guillermo francois Interpreting Physician EVARISTO Rocha Procedure Type of Study SHAN procedure:TRANSESOPHAGE AL ECHO Indications:TAVR. Clinical History CHF,,CAD,DM,HTN [...] External Ris In - 01/21/2019 8:54 AM TAPER/FINISHER Transesophageal Echocardiography Report (SHAN) Demographics Patient Name KRYSTIAN RUBIN Date of Study 01/20/2019 LIU Gend er Male Visit Number [id number] Race Unknown Room Number 6104 Number Date of 1935 Refe MD Aiden Lobato Age 83 year(s) Marley Li [facility] rpretin Aiden Angel MD Procedure Type of [...] T VTI: 11.54 cm Performing Organization Address City/[facility]/Zipcode Phone Number [facility] aPTT (01/20/2019 4:04 AM TAPER/FINISHER)Only the most recent of10 resultswithin the time period is included. Pathologist Sig nature PTT 44.7 (H) 22.5 - 36.0 seconds [facility] Specimen Blood - Entire left upper arm (body stru cture) Performing Organization Address City/[facility]/Zipcode Phone Number [address] [address] CENTER Lactic acid, venous (01/19/2019 4:02 AM TAPER/FINISHER) Pathologist Sig nature Lactate, Venous 0.8 0.5 - 2.2 mmol/L [facility] Specimen Blood - Entire right upper arm (body str ucture) Performing Organization Address [facility] Centercode Phone Number [facility] [address] [place] [address] CENTER Type and screen, automated (01/17/2019 5:07 AM TAPER/FINISHER)Only the most recent of2 resultswithin the time period is included. Pathologist Sig nature ABO/RH AUTOMATED A NEGATIVE [facility] Ab Scrn NEGATIVE [facility] Specimen Blood Performing Organization Address [facility] Phone Number [address] [address] Prothrombin time/INR (01/17/2019 5:07 AM TAPER/FINISHER) Pathologist Sig formerly [facility] Protime 14.7 (H) 11.9 - 14.2 seconds [facility] INR 1.2 <=5.9 [facility] Specimen Blood - Entire left upper arm (body stru cture) Narrative Performed At Effective 07/10/2018: PT Reference Range [facility] Change New: 11.9-14.2 Previous: 11.7-14.7 RECOMMENDED COUMADIN/WARFARIN INR THERAPY RANGES STANDARD DOSE: 2.0-3.0 Includes: PROPHYLAXIS for venous thrombosis, systemic embolization; TREATMENT for venous thrombosis and/or pulmonary embolus. HIGH RISK: Target INR is 2.5-3.5 for patients wiht mechanical heart valves. Within 24 hours, if on Coumadin Performing Organization Address [facility] Centercode Phone Number [facility] [address] [place] [address] CENTER Carotid doppler bilateral (01/15/2019 3:00 PM TAPER/FINISHER) Pathologist Sig nature Ejection Fraction [facility] [place] Specimen Impressions Performed At Right Impression [facility] 1. There is [...] At PV LAB - Carotid Duplex Study [facility] Demographics Patient Name KRYSTIAN RUBIN Date of Study 01/15/2019 LIU Age 83 Visit Number [id number] Gender Male Accession Number [id number] Date of 1935 Referring Houston Miranda MD Room Number 1135 Physician Freelance Writer Pedro Alcocer RVT Interpreting Romana Chandra Physician [...] External Ris In - 01/15/2019 4:53 PM TAPER/FINISHER PV LAB - Carotid Duplex Study Demographics Patient Name KRYSTIAN RUBIN Da te of Study 01/15/2019 LIU Ag e 83 Visit Number [id number] Ge nder Male Accession Number [id number] Da te of 1935 Referring Houston Miranda MD Ro om Number 1135 Physician Freelance Writer Pedro Alcocer RVT In terpreting Romana Chandra, [...] 0.64. Performing Organization Address City/State/Zipcode Phone Number [facility] Arterial doppler legs bilateral (01/15/2019 1:50 PM TAPER/FINISHER) [facility] nature Ejection Fraction [facility] Specimen Impressions Performed At Right Impression [facility] 1. The common femoral, profunda femoral, superficial [...] + + + + + + !Prox STEAM ROOM ATTENDANT ! !70.7 ! !Biphasic ! !38.9 !6.68 !Biphasic ! + + + + + + + + + + !Mid STEAM ROOM ATTENDANT ! !49.1 ! !Biphasic ! !53.8 !4.32 !Biphasic ! + + + + + + + + + + !Dist STEAM ROOM ATTENDANT ! !46 ! !Biphasic ! !29.9 ! !Biphasic ! + + + + + + + + + + !Prox VEGA ! !29 ! !Monophasic ! !33.4 ! !Monophasic ! + + + + + + + + + + !Dist VEGA ! + + Narrative Performed At LAB - Lower Extremity Arterial Duplex [facility] Demographics Patient Name KRYSTIAN RUBIN Date of Study 01/15/2019 LIU Age 83 Visit Number [id number] Gender Male Accession Number [id number] Date of 1935 Referring Houston Miranda MD Room Number 1135 Physician Freelance Writer Pedro Alcocer T Interpreting Physician EVARISTO Yan [...] External Ris In - 01/15/2019 4:53 PM TAPER/FINISHER PV LAB - Lower Extremity Arterial Duplex Demographics Patient Name KRYSTIAN RUBIN te of Study 01/15/2019 LIU Ag e 83 Visit Number [id number] Ge nder Male Accession Number [id number] Da te of 1935 Referring Houston Miranda MD om Number 1135 Physician Freelance Writer Pedro Alcocer RVT In terpreting Romana Chandra, [...] + + + + + + !Prox STEAM ROOM ATTENDANT ! !70.7 ! !Biphasic ! !38.9 !6.68 !Biphasic ! + + + + + + + + + + !Mid STEAM ROOM ATTENDANT ! !49.1 ! !Biphasic ! !53.8 !4.32 !Biphasic ! + + + + + + + + + + !Dist STEAM ROOM ATTENDANT ! !46 ! !Biphasic ! !29.9 ! !Biphasic ! + + + + + + + + + + !Prox VEGA ! !29 ! !Monophasic ! !33.4 ! !Monophasic ! + + + + + + + + + + !Dist VEGA ! + + Performing Organization Address City/[facility]/Zipcode Phone Number [facility] Hemoglobin A1c (01/15/2019 2:13 AM TAPER/FINISHER)Only the most recent of2 resultswithin the time period is included. Pathologist [facility] Hemoglobin A1C 8.3 (H) 4.3 - 6.1 % [facility] Specimen Blood Performing Organization Address [facility] Phone Number [place] [phone] [place] [address] [place] ECHOCARDIOGRAM REPORT - SCAN (01/14/2019 9:20 PM TAPER/FINISHER) Narrative Performed At This result has an attachment that is no t available. Occult blood, stool (01/14/2019 7:39 PM TAPER/FINISHER) Pathologist [facility] Occult blood Positive (A) Negative [facility] Specimen Stool - Rectum structure (body structure ) Performing Organization Address [facility] Centercode Phone Number [address] [address] [place] CTA chest (01/14/2019 4:46 PM TAPER/FINISHER) Specimen Narrative Performed At Addendum Begins GE RIS REPORT STATUS:A Addendum: I agree with the previously described no n vascular findings by Dr. Yu. Signed: Elmer Sotelo MD Report Verified Date/Time: 01/15/2019 14:11:09 Reading Location: [place] [address] Angio Body Reading Room Addendum Ends FINAL [...] the contrast sheet scann ed in the SnapMyAd system for the amount and route of [...] measures 9 and 10 mm, respectively with fzls-ot-ddmrsmlh tortuosity and minima l calcific atherosclerosis present. [...] regard ing the non-vascular findings by the [employer] Radiologist. Signed: Sudarshan Yu MD Report Verified Date/Time: 01/14/2019 18:44:15 Procedure Note Interface, External Ris In - 01/15/2019 2:13 PM TAPER/FINISHER Addendum Begins REPORT STATUS:A Addendum: I agree with the previously described no n vascular findings by Dr. Yu. Signed: Elmer Sotelo MD Report Verified Date/Time: 01/15/2019 1 4:11:09 Reading Location: [place] [address] Angio Body Reading Room Addendum Ends FINAL [...] the contrast sheet scann ed in the SnapMyAd system for the amount and route of [...] measures 9 and 10 mm, respectively with bgzl-yg-rmulujrp tortuosity and minimal calcific atherosclerosis present. The [...] regardi ng the non-vascular findings by the [employer] Radiologist. Signed: Sudarsahn Yu MD Report Verified Date/Time: 01/14/2019 1 8:44:15 Performing Organization Address City/State/Zipcode Phone Number [employer] CTA abdomen & pelvis (01/14/2019 4:46 PM TAPER/FINISHER) Specimen Narrative Performed At Addendum Begins [employer] RIS REPORT STATUS:A Addendum: I agree with the previously described no n vascular findings by Dr. Yu. Signed: Elmer Sotelo MD Report Verified Date/Time: 01/15/2019 14:11:09 Reading Location: [place] [address] Angio Body Reading Room Addendum Ends FINAL [...] measures 9 and 10 mm, respectively with obai-vd-gcxevgnw tortuosity and minima l calcific atherosclerosis present. [...] regard ing the non-vascular findings by the [employer] Radiologist. Signed: Sudarshan Yu MD Report Verified Date/Time: 01/14/2019 18:44:15 Procedure Note Interface, External Ris In - 01/15/2019 2:13 PM TAPER/FINISHER Addendum Begins REPORT STATUS:A Addendum: I agree with the previously described no n vascular findings by Dr. Yu. Signed: Elmer Sotelo MD Report Verified Date/Time: 01/15/2019 1 4:11:09 Reading Location: [place] [address] Angio Body Reading Room Addendum Ends FINAL [...] the contrast sheet scann ed in the SnapMyAd system for the amount and route of [...] measures 9 and 10 mm, respectively with aroc-yh-qvmippdc tortuosity and minimal calcific atherosclerosis present. The [...] regardi ng the non-vascular findings by the [employer] Radiologist. Signed: Sudarshan Yu MD Report Verified Date/Time: 01/14/2019 1 8:44:15 Performing Organization Address City/State/Zipcode Phone Number [employer] 2D Echo W/Doppler(CW/PW/Color) (01/14/2019 11:00 AM TAPER/FINISHER) Pathologist Sig nature Ejection Fraction [facility] Specimen Narrative Performed At Transthoracic Echocardiography Report (T TE) [facility] Demographics Patient Name KRYSTIAN RUBIN Date of Study 01/14/2019 LIU Gender Male Visit Number [id number] Race Unknown Room Number 1135 Number Date of 1935 Referring Lobo lindquist MD Physician Age 83 year(s) Freelance Writer Kvng berry CS Interpreting Misael melendez Physician [...] by Glynn's method of disk assessment is rffbms-pw-voewxmzbso reduced (40%) . Grade 2 diastolic dysfunction [...] by Glynn's method of disk assessment is ycglox-pf-rlqfoedhwt reduced (40%) . Grade 2 diastolic dysfunction [...] External Ris In - 01/14/2019 12:25 PM TAPER/FINISHER Transthoracic Echocardiography Report (TTE) Demographics Patient Name KRYSTIAN RUBIN Date of Study 01/14/2019 LIU Gend er Male Visit Number [id number] Race Unknown Room Number 1135 Number Date of 1935 Refe korey emery Age 83 year(s) Sono amilcar Nugent, [facility] Inte rpreting Aiden Angel MD Procedure Type [...] Glynn's method o f disk assessment is zrxctd-id-hhyxwyclvb reduced (40%) . Grade 2 diastolic dysfunction [...] Glynn' s method of disk assessment is hgffyd-hr-lgoqju tely reduced (40%) . Grade 2 diastoli [...] T CI: 1.79 l/min/m^2 Performing Organization Address [facility] Centercode Phone Number [facility] Troponin I (01/14/2019 2:16 AM TAPER/FINISHER)Only the most recent of2 resultswithin the time period is included. Pathologist Sig nature Troponin I 5.61 (HH) 0.00 - 0.03 ng/mL [facility] Specimen Blood Narrative Performed At Troponin I (TnI) levels must be interpreted [facility] in the context of the presenting symptoms [...] disease, and persistent tachyarrhythmia. Performing Organization Address City/[facility] [place] [address] CENTER PT/aPTT (01/14/2019 1:51 AM TAPER/FINISHER)Only the most recent of2 resultswithin the time period is included. Pathologist Sig nature Protime 15.7 (H) 11.9 - 14.2 seconds [facility] INR 1.3 <=5.9 [facility] PTT 46.1 (H) 22.5 - 36.0 seconds [facility] [facility] Specimen Blood Narrative Performed At Effective 07/10/2018: PT Reference Range [facility] Change New: 11.9-14.2 Previous: 11.7-14.7 RECOMMENDED COUMADIN/WARFARIN INR THERAPY RANGES STANDARD DOSE: 2.0-3.0 Includes: PROPHYLAXIS for venous thrombosis, systemic embolization; TREATMENT for venous thrombosis and/or pulmonary embolus. HIGH RISK: Target INR is 2.5-3.5 for patients wiht mechanical heart valves. Performing Organization Address City/[facility] Phone Number [address] [address] CENTER [place], manual (01/13/2019 8:35 PM TAPER/FINISHER) Pathologist Sig nature ABO Grouping A [facility] [place] Rh Factor NEG [facility] Specimen Blood Performing Organization Address [facility] Cent[facility]ode Phone Number [address] [address] TSH/Free T4 If Indicated (01/13/2019 8:35 PM TAPER/FINISHER) Pathologist Sig nature TSH 1.51 0.35 - 4.94 uIU/mL [facility] [place] [place] Specimen Blood Performing Organization Address [facility] Phone Number [address] [address] [place] B-type Natriuretic Factor (BNP) (01/13/2019 6:39 PM TAPER/FINISHER) Pathologist Sig nature BNP 1,799 (H) 0 - 100 pg/mL [facility] Specimen Blood Performing Organization Address [facility]ode Phone Number [address] [address] CENTER Hepatic function panel (01/13/2019 6:38 PM TAPER/FINISHER) Pathologist Sig nature Protein, Total 6.1 6.0 - 8.3 gm/dL [facility] Albumin 3.6 3.5 - 5.0 g/dL [facility] Total Bilirubin 2.4 (H) 0.2 - 1.2 mg/dL [facility] Bilirubin, Direct 1.0 (H) 0.1 - 0.5 mg/dL [facility] Alkaline Phosphatase 62 40 - 150 U/L [facility] AST 23 5 - 34 U/L [facility] ALT 10 6 - 55 U/L [facility] Specimen Blood Narrative Performed At Specimen slightly icteric [facility] Performing Organization Address City/[facility] Cent[facility]ode Phone Number [facility] [address] [place] [address] CENTER Lipid panel (01/13/2019 6:38 PM TAPER/FINISHER) Pathologist Sig nature Triglycerides 102 mg/dL [facility] Cholesterol 130 mg/dL [facility] HDL 26 mg/dL [facility] [place] LDL Calculated 84 mg/dL [facility] [place] Specimen Blood Narrative Performed At Triglyceride Reference Range: [facility] Low Risk <150 Borderline 150-199 High Risk 200-499 Very High Risk >=500 Cholesterol Reference Range: Low Risk <200 Borderline 200-239 High Risk >240 HDL Cholesterol Reference Range: Low Risk >=60 High Risk <40 LDL Cholesterol Reference Range: Optimal <100 Near Optimal 100-129 Borderline 130-159 High 160-189 Very High >=190 Specimen slightly icteric Performing Organization Address City/State/Zipcode Phone Number [facility] [address] [place] [address] CENTER after 12/14/2018 Insurance Payer Benefit Plan / Subscriber ID Effective Dates Phone Addre ss Type Group MEDICARE MEDICARE A B [id number] 2001-Present Medicare [facility] [id number] 2016-Presen SUPPLEMENT/INDIV t IDUAL Advance Directives For more information, please contact: [phone] Code Status Date Activated Date Inactivated Comments Full Code 01/21/2019 3:08 AM 01/22/2019 5:50 PM This code status was determined by: Patient Full Code 01/16/2019 8:53 AM 01/21/2019 3:08 AM This code status was determined by: Patient
--- OUTSIDE RECORDS SUMMARY | 2019-12-15 14:50 | XMS REPORT | Continuity of Care Document ---
:1935 Author Organization [facility] t Address [address] [place] [address] [address] [place] [address] Care Team Providers Name Role Phone Gage Voss Primary Care Physician Ale MARIE, A Attending Clinician Unavailable Seferino LOERA Attending Clinician Gene Perry MD Attending Clinician Ben LOERA Attending Clinician Yariel Attending Clinician Unavailable Zoila LOERA Attending Clinician SEFERINO Attending Clinician Unavailable SEFERINO Admitting Clinician Unavailable Payers Payer Name Policy Type Policy Effective Date Expiration Date Sour ce Number MEDICAREMEDICARE A [id number] 2001 JAYJAY Moon [id number] 2001-P 00:00:00 - [facility] MCR [id number] [address] [facility] SUPPLE[facility]INDIVIDUALM 00:00:00 - [facility] [id number] 2015-P resent Problems Condition Condition Condition Status Onset Resolution Last Treating Co mments Source Name Details Category Date Date Treatment Clinician Date LBBB post LBBB post Disease Active 2018-[address] [facility] TAVR TAVR 2-12 [facility] - 00:00: Medical 00 [place] Paroxysmal Paroxysmal Disease Active 2018-02 C HI [...] and RCA on and RCA on 2-10 [facility] - 01/17/19 01/17/19 00:00: Medical 00 [place] 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, NYHA CHF, NYHA class 4 class 4 Aortic Aortic Disease Active 2018-[address] stenosis, stenosis, 2-03 [facility] - severe severe 00:00: Medical 00 [place] Frailty Frailty Disease Active 2018-[address] [...] Stop Date Source Natural mother Heart disease [facility] Social History Social Habit Start Date Stop Date Quantity Comments Source History [facility] - Alcohol Std Drinks Medica Center History [facility] - Alcohol Binge Medical Janeen ter Sex Assigned At [facility] Tobacco use and 2019-01-22 2019-01-22 Never used [facility] - exposure 00:00:00 00:00:00 [facility] Center Alcohol intake 2019-01-22 2019-01-22 Current [facility] es - 00:00:00 00:00:00 non-drinker of Medical Ce nter alcohol (finding) History [facility] 2019-01-13 2019-01-13 1 [facility] - Alcohol Frequency 00:00:00 00:00:00 [facility] Smoking Status Start Date Stop Date Source Never smoker [facility] edical [place] Medications Ordered Filled Start Stop Current Ordering [...] 00:00 daily. Med ical tablet 05 :00 [place] dextrometho 2018-02 Yes Use as [facility] [...] Center U-100 INSULIN) 100 unit/mL (3 mL) [facility] insulin 2018-02 Yes To use [address] [facility] aspart 2-05 to 20 [facility] - U-100 00:00: units Medical (NOVOLOG 00 three Center FLEXPEN times a U-100 day per INSULIN) sliding 100 unit/mL scale. (3 mL) [facility] insulin pen 2018-02 Yes Use [...] Center Diastolic blood 2019-01-22 12:02:00 65 mm[Hg] [facility] Heart rate 2019-01-22 12:02:00 78 /min [facility] Body temperature 2019-01-22 12:02:00 36.94 [facility] Respiratory rate 2019-01-22 12:02:00 16 /min [facility] Oxygen saturation in 2019-01-22 12:02:00 97 /min [facility] Arterial blood by Medical Ce nter Pulse oximetry Body weight 2019-01-21 08:00:00 88.8 kg [facility] BMI 2019-01-21 08:00:00 26.55 kg/m2 [facility] Body height 2019-01-13 16:00:00 182.9 cm [facility] Procedures Procedure Date / Time Performing Clinician Source Performed VASCULAR DIAGRAM -SCAN 2019-01-29 12:40:51 Provider, Default [facility] RHYTHM STRIP - SCAN 2019-01-24 08:31:29 Provider, [facility] REPORT OF PROCEDURE - 2019-01-24 08:31:25 Provider, Default [facility] ENDOSCOPY [facility] VASCULAR DIAGRAM -SCAN 2019-01-24 08:31:23 Provider, Default [facility] CARDIAC CATH REPORT - SCAN 2019-01-24 08:31:22 Provider, Default [facility] CARDIAC CATH REPORT - SCAN 2019-01-24 08:31:18 Provider, Default [facility] ECHOCARDIOGRAM REPORT - 2019-01-22 21:20:52 Provider, Default [facility] POCT-GLUCOSE METER 2019-01-22 12:08:00 [place] Miranda [facility] XR CHEST 1 VIEW 2019-01-22 11:41:00 [place] Miranda [facility] PORTABLE/BEDSIDE [facility] DIGOXIN LEVEL 2019-01-22 08:42:00 Kt Benson [facility] POCT-GLUCOSE METER 2019-01-22 07:39:00 [place] Miranda [facility] BASIC METABOLIC PANEL (7) 2019-01-22 03:33:00 Seferino [place] TURNER [facility] MAGNESIUM 2019-01-22 03:33:00 Seferino [place] [facility] CBC W/PLT COUNT & AUTO 2019-01-22 03:33:00 Seferino [place] RO Rani myers [facility] (CELLAVISION MANUAL DIFF) 2019-01-22 03:33:00 Seferino [place] TURNER [facility] POCT-GLUCOSE METER 2019-01-21 21:54:00 Seferino [place] [facility] ECHOCARDIOGRAM REPORT - 2019-01-21 21:23:45 Provider, [facility] TRANSFUSION SERVICE REPORT 2019-01-21 18:51:53 Provider, Shahzad [facility] POCT-GLUCOSE METER 2019-01-21 17:46:00 Seferino [place] [facility] POCT-GLUCOSE METER 2019-01-21 15:49:00 Seferino [facility] 2D ECHO W/ DOPPLER 2019-01-21 13:47:35 Kt Benson [facility] (CW/PW/COLOR) [facility] POCT-GLUCOSE METER 2019-01-21 11:33:00 [facility] RHYTHM STRIP - SCAN 2019-01-21 11:00:54 Provider, [facility] POCT-GLUCOSE METER 2019-01-21 07:43:00 Seferino [place] [facility] ECG 12-LEAD 2019-01-21 06:08:00 Unknown, Hl7 Doctor [facility] BASIC METABOLIC PANEL (7) 2019-01-21 04:12:00 Seferino [place] TURNER [facility] MAGNESIUM 2019-01-21 [facility]12[facility] W/PLT COUNT & AUTO 2019-01-21 04:12:00 [place] Miranda JAYJAY Rani myers [facility] POCT-GLUCOSE METER 2019-01-20 21:07:00 Seferino [place] [facility] POCT-GLUCOSE METER 2019-01-20 16:42:00 Seferino [facility] ECG 12-LEAD 2019-01-20 14:09:27 Unknown, 7 [facility] ECG 12-LEAD 2019-01-20 13:20:41 Unknown, 7 [facility] ECG 12-LEAD 2019-01-20 13:06:57 Unknown, 7 [facility] ECG 12-LEAD 2019-01-20 13:06:29 Unknown, 7 [facility] POCT-GLUCOSE METER 2019-01-20 12:59:00 [facility] LEUKO[facility]REDUCED RBC 2019-01-20 11:16:00 Lobo Perry [facility] POCT-ACT 2019-01-20 10:14[facility]IN[facility] W/ REFLEX URINE 2019-01-20 09:19:06 Lobo Perry [facility] CULTURE [facility] URINE CULTURE 2019-01-20 09:19:00 Lobo Perry [facility] TRANSESOPHAGEAL ECHO 2019-01-20 07:49:37 Lobo Perry [facility] COLOR-FLOW MAPPING 2019-01-20 07:23:08 [facility] W[facility] PULSED DOPPLER 2019-01-20 07:23:08 Lobo Perry [facility] TAVR / STEPHEN MCR - IP 2019-01-20 07:06:00 Lobo Perry [facility] - PROC ONLY [facility] BASIC METABOLIC PANEL (7) 2019-01-20 04:04:00 [place] Miranda CH, I [facility] MAGNESIUM 2019-01-20 04:04:00 [place] Miranda [facility] APTT 2019-01-20 [facility] W/[facility]T COUNT & AUTO 2019-01-20 04:04[facility]FF) 2019-01-20 04:04:00 Jdmakenzie [place] [facility] POCT-GLUCOSE METER 2019-01-19 23:09:00 Seferino [facility] APTT 2019-01-19 17:51:00 Seferino [facility] POCT-GLUCOSE METER 2019-01-19 16:48:00 Jdmakenzie [facility] POCT-GLUCOSE METER 2019-01-19 11:26:00 Seferino [facility] APTT 2019-01-19 11:24:00 [facility] POCT-GLUCOSE METER 2019-01-19 08:05:00 [facility] BASIC METABOLIC PANEL (7) 2019-01-19 04:02:00 Seferino [place] TURNER [facility] MAGNESIUM 2019-01-19 04:02:[facility] LACTIC ACID, VENOUS 2019-01-19 04:02:00 [facility] W/PLT COUNT & AUTO 2019-01-19 04:02:00 Jdmakenzie [facility] (CELLAVISION MANUAL DIFF) 2019-01-19 04:02:00 Jdmakenzie [place] [facility] POCT-GLUCOSE METER 2019-01-18 22:39:00 [facility] TRANSFUSION SERVICE REPORT 2019-01-18 18:02:14 Provider [facility] SCAN [facility] POCT-GLUCOSE METER 2019-01-18 17:40:00 [facility] POCT-GLUCOSE METER 2019-01-18 12:30:00 [facility] POCT-GLUCOSE METER 2019-01-18 12:16:00 [facility] POCT-GLUCOSE METER 2019-01-18 07:49:00 [facility] APTT 2019-01-18 03:43:[facility] BASIC METABOLIC PANEL (7) 2019-01-18 03:43:00 [place] Miranda CH, I [facility] MAGNESIUM 2019-01-18 03:43:00 Seferino [facility] CBC W/PLT COUNT & AUTO 2019-01-18 03:43:00 [place] Miranda [facility] ECG 12-LEAD 2019-01-17 20:18:44 Unknown, Hl7 Doctor [facility] ECG 12-LEAD 2019-01-17 20:17:48 Unknown, Hl7 [facility] POCT-GLUCOSE METER 2019-01-17 16:51:00 Seferino [facility] POCT-ACT 2019-01-17 13:07:00 Seferino [facility] CORONARY ANGIOS & STENT 2019-01-17 11:45:00 Jasmina Cummings [facility] POCT-GLUCOSE METER 2019-01-17 07:17:00 Seferino [facility] APTT 2019-01-17 05:07:00 Seferino [facility] BASIC METABOLIC PANEL (7) 2019-01-17 05:07:00 [place] Miranda [facility] MAGNESIUM 2019-01-17 05:07:00 Seferino [facility] PROTHROMBIN TIME/INR 2019-01-17 05:07:00 Abdifatah Grissom [facility] TYPE AND SCREEN, AUTOMATED 2019-01-17 05:07:00 Abdifatah Grissom [facility] CBC W/PLT COUNT & AUTO 2019-01-17 05:07:00 Seferino [facility] S t [facility] POCT-GLUCOSE METER 2019-01-16 21:57:00 [facility] POCT-GLUCOSE METER 2019-01-16 17:22:00 [facility] POCT-GLUCOSE METER 2019-01-16 11:55:00 [facility] POCT-GLUCOSE METER 2019-01-16 07:38:00 [place] [facility] BASIC METABOLIC PANEL (7) 2019-01-16 04:15:00 [place] Miranda JOHNNY Castaneda [facility] MAGNESIUM 2019-01-16 04:15:00 GiveHouston banegas [facility] APTT 2019-01-16 04:15:00 [place] Miranda [facility] CBC W/PLT COUNT & AUTO 2019-01-16 04:15:00 [place] Miranda [facility] POCT-GLUCOSE METER 2019-01-15 21:22:00 Seferino [facility] POCT-GLUCOSE METER 2019-01-15 17:50:00 Givemakenzie [facility] POCT-GLUCOSE METER 2019-01-15 15:12:00 Seferino [facility] CAROTID DOPPLER BILATERAL 2019-01-15 15:00:00 Kelley [facility] ARTERIAL DOPPLER LEGS 2019-01-15 13:50:00 Kelley [facility] POCT-GLUCOSE METER 2019-01-15 12:15:00 [facility] APTT 2019-01-15 09:20:[facility] POCT-GLUCOSE METER 2019-01-15 07:45:00 Seferino [facility] APTT 2019-01-15 02:13:00 [place] Miranda [facility] BASIC METABOLIC PANEL (7) 2019-01-15 02:13:00 Jdmakenzie [place] TURNER I [facility] MAGNESIUM 2019-01-15 02:13:00 [facility] HEMOGLOBIN A1C 2019-01-15 02:13:00 Jessica Malik [facility] CBC W/PLT COUNT & AUTO 2019-01-15 02:13:00 Givemakenzie [place] RO Rani myers [facility] POCT-GLUCOSE METER 2019-01-14 22:00:00 [facility] ECHOCARDIOGRAM REPORT - 2019-01-14 21:20:05 Provider, [facility] OCCULT BLOOD, STOOL 2019-01-14 19:39:00 Seferino [facility] APTT 2019-01-14 19:39:00 [facility] TRANSFUSION SERVICE REPORT 2019-01-14 17:50:26 ProviderShahzad [facility] POCT-GLUCOSE METER 2019-01-14 17:29:00 [facility] CTA ABDOMEN & PELVIS 2019-01-14 16:46:[address] [facility] CTA CHEST 2019-01-14 16:46:[address] [facility] POCT-GLUCOSE METER 2019-01-14 14:21:00 [facility] POCT-GLUCOSE METER 2019-01-14 12:40:00 [facility] 2D ECHO W/ DOPPLER 2019-01-14 11:00:[address] [facility] (CW/PW/COLOR) [facility] APTT 2019-01-14 10:01:00 [facility] POCT-GLUCOSE METER 2019-01-14 08:07:00 [facility] BASIC METABOLIC PANEL (7) 2019-01-14 02:16:00 [place] Miranda CH, I [facility] MAGNESIUM 2019-01-14 02:16:00 [facility] TROPONIN I 2019-01-14 02:16:00 Kt Benson [facility] PT/APTT 2019-01-14 01:51:00 [facility] CBC W/PLT COUNT & AUTO 2019-01-14 01:51:00 Seferino [facility] XR CHEST 1 VIEW 2019-01-13 22:20:[address] [facility] PORTABLE/BEDSIDE [facility] POCT-GLUCOSE METER 2019-01-13 21:30:00 [facility] ECG 12-LEAD 2019-01-13 20:52:21 Unknown, Hl7 Doctor [facility] ECG 12-LEAD 2019-01-13 20:51:45 Unknown, Hl7 [facility] TSH/FREE T4 IF INDICATED 2019-01-13 20:35:00 Kt Benson [facility] ABORH, MANUAL 2019-01-13 20:35:00 Puja Juan [facility] HEMOGLOBIN A1C 2019-01-13 18:39:00 [place] Miranda [facility] B-TYPE NATRIURETIC FACTOR 2019-01-13 18:39:[address] [facility] (BNP) [facility] TYPE AND SCREEN, AUTOMATED 2019-01-13 18:39:00 [place] Miranda [facility] BASIC METABOLIC PANEL (7) 2019-01-13 18:38:00 [place] Miranda [facility] MAGNESIUM 2019-01-13 18:38:00 Seferino [facility] PT/APTT 2019-01-13 18:38:00 Seferino [facility] HEPATIC FUNCTION PANEL 2019-01-13 18:38:00 Seferino [facility] LIPID PANEL 2019-01-13 18:38:00 Kt Benson [facility] TROPONIN I 2019-01-13 18:38:00 Kt Benson [facility] POCT-GLUCOSE METER 2019-01-13 18:25:00 [place] Miranda [facility] Plan of Care Planned Activity Planned Date Details Comments Source Future Scheduled 2019-10-14 INFLUENZA VACCINE (#1) [facility] Test 00:00:00 [code = INFLUENZA Medical Ce nter VACCINE (#1)] Future Scheduled 2019-07-17 Hemoglobin A1c [facility] - Test 00:00:00 [facility] Center (procedure) [code = 03984403] Future Scheduled 2002-05-14 MEDICARE ANNUAL [facility] ukes - Test 00:00:00 WELLNESS (YEAR 2 or Medical Center FIRST YEAR if no IPPE) [code = MEDICARE ANNUAL WELLNESS (YEAR 2 or FIRST YEAR if no IPPE)] Future Scheduled 2001 PNEUMOCOCCAL 65+ YRS [facility] - Test 00:00:00 (1 of 1 - Medical Center [id number] PCV13) [code = PNEUMOCOCCAL 65+ YRS (1 of 1 - [id number] PCV13)] Future Scheduled 1946 DIABETIC EYE EXAM [facility] - Test 00:00:00 [code = DIABETIC EYE Medical Center EXAM] Future Scheduled [address] [facility] - Test 00:00:00 examination Medical Center (regime/therapy) [code = 557057333] Future Scheduled 1946 Urine screening for [facility] - Test 00:00:00 protein (procedure) Medical Center [code = 793934373] Results Test Description Test Time Test Comments Results Result Comments Source POC-Glucose meter 2019-01-22 12:26:00 Test Item Value Reference Range Interpretation Comme nts POC-Glucose Meter (test code = 91 mg/dL 70-110 : TESTED AT [facility] [address] [facility], 770 30: Manager Parking/Techni pelon ID = [id number] for LISA GUZMAN Lab Interpretation (test code = Normal 82861-4) [facility] [id number] 12:26:00 Test Item Value Reference Range Interpretation Comments POC-GLUCOSE METER 91 mg/dL 70-110 : [facility] ([facility] (test code = BERTNE R [facility], 1538) [address]: Manager Parking/Techni pelon ID = [id number] for LISA GUZMAN RAD, CHEST, 1 VIEW, NON [id number] 11:51:00Reason for exam:->chfShould this be performed at the bedside?->YesFINAL REPORT INDICATION: chf COMPARISON: None TECHNIQUE: Single frontal view of the chest. FINDINGS: Lungs and pleura: Clear lungs. No effusion.Heart and mediastinum: Normal heart size. Unremarkable mediastinal contours.Osseous structures: No acute abnormality.Other: None. IMPRESSION: Mild central pulmonary venous congestion. Signed: Kat Menjivar Verified Date/Time: 01/22/2019 11:51:04 Reading Location: [facility] Reading Room XR chest 1 view portable / [id number] 11:51:00Interface, External Ris In - 01/22/2019 12:01 PM CSTFINAL REPORT INDICATION: chf COMPARISON: None TECHNIQUE: Single frontal view of the chest. FINDINGS: Lungs and pleura: Clear lungs. No effusion.Heart and mediastinum: Normal heart size. Unremarkable mediastinal contours.Osseousstructures: No acute abnormality.Other: None. IMPRESSION: Mild central pulmonary venous congestion. 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 Zuleika Ziegler RD Interpreting Kristin Hercules Physician [...] Valve TR Velocity: 2.9 m/sTR Gradient: 33.63 mmHgChapman Medical CenterDigoxin [id number] 09:15:00 Test Item Value Reference Range Interpretation Comments Digoxin Lvl (test code = 0.6 ng/mL 0.8-2 L 24849-6) BEATRIZ (test code = BEATRIZ) Draw 1 hour prior to morning digoxin dose Lab Interpretation (test Abnormal code = 08014-3) [facility] CenterDIGOXIN [id number] 09:15:00 Test Item Value Reference Range Interpretation Comments DIGOXIN LEVEL ([place]) (test code = 0.6 ng/mL 0.8-2.0 L 669) Draw 1 hour prior to morning digoxin dosePOCT-GLUCOSE [id number] 07:52:00 Test Item Value Reference Range Interpretation Comments POC-GLUCOSE METER 106 mg/dL 70-110 : TESTED A T [facility] 67[address] ([place]) (test code = [place]DE RODRIGUE[place], 1538) [address]: Manager Parking/Techni pelon ID = [id number] for LISA GUZMAN CBC with platelet count + automated [id number] 07:44:00 Test Item Value Reference Range Interpretation [...] K/CU MM L MPV (test code = 18057-0) 11.9 fL 9.4-12.4 nRBC (test code = 413) 0 0- 0 /100 WBC Lab Interpretation (test code = Abnormal 75488-4) [facility] CenterManual [id number] 07:44:00 Test Item Value Reference Range Interpretation [...] comments: Lab Interpretation (test Abnormal code = 38632-7) [facility] W/PLT COUNT & AUTO [id number] 07:44:00 Test Item Value Reference Range Interpretation [...] Received comment: User comments: Slide comments:Basic Metabolic [id number] 04:44:00 Test Item Value Reference Range Interpretation [...] Calcium (test code = 8.6 mg/dL 8.4-10.2 43194-4) EGFR (test code = 101 mL/min/1.73 [place] [address]-1) NOT ACCURATE CREATININE CLEARANCE IN PREDICTING GLOMERULAR FILTRATION RATE . ESTIMATED GFR I S NOT APPLICABLE FOR DIALYSIS PATIEN TS. Lab Interpretation Abnormal (test code = 82915-8) [facility]11 04:44:00 Test Item Value Reference Range Interpretation Comments Magnesium (test code = 79039-3) 2.0 mg/dL 1.6-2.6 Lab Interpretation (test code = Normal 36513-6) [facility] CenterMAGNESIUM2019-12-11 04:44:00 Test Item Value Reference Range Interpretation Comments MAGNESIUM (BEAKER) (test code = 2.0 mg/dL 1.6-2.6 627) BASIC METABOLIC [id number] 04:44:00 Test Item Value Reference Range Interpretation [...] NOT APPLICABLE FOR DIALYSIS PATIEN TS. POCT-GLUCOSE [id number] 22:06:00 Test Item Value Reference Range Interpretation Comments POC-GLUCOSE METER 182 mg/dL 70-110 H : TESTED A T [facility] 6720 (BEAKER) (test code = [facility], [facility]) [address]: Manager Parking/Techni pelon ID = [id number] for OC SARAH, ESME POCT-GLUCOSE [id number] 17:58:00 Test Item Value Reference Range Interpretation Comments POC-GLUCOSE METER 81 mg/dL 70-110 : TESTED A T [facility] 6720 (BEAKER) (test code = [facility], 1538) [address]: Manager Parking/Techni pelon ID = [id number] for Math ew, Remyia POCT-GLUCOSE [id number] 16:01:00 Test Item Value Reference Range Interpretation Comments POC-GLUCOSE METER 101 mg/dL 70-110 : TESTED A T [facility] 6720 (BEAKER) (test code = [facility], 1538) [address]: Manager Parking/Techni pelon ID = [id number] for Ma thew, Remyia POCT-GLUCOSE [id number] 11:48:00 Test Item Value Reference Range Interpretation Comments POC-GLUCOSE METER 151 mg/dL 70-110 H : TESTED A T [facility] 67[address] (BEAKER) (test code = [facility], 1538) [address]: Manager Parking/Techni pelon ID = [id number] for Ma thew, Remyia Transesophageal [id number] 08:54:16Ejection FractionSLEH ECHO HEARTLAB MKCKESSON CPACSInterface, External Ris In - 01/21/2019 8:54 AM C STTransesophageal Echocardiography Report (SHAN) Demographics Patient Name KRYSTIAN RUBIN Date of Study 01/20/2019 LIU Gender Male Visit Number [id number] Race Unknown Room Number 6104 Number Date of 1935 Referring [place] Miranda MD Physician 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 83 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 Interpreting Physician EVARISTO [...] Mean Gradient: 0.56 mmHg LVOT VTI: 11.54 [facility] [id number] 08:30:16Interface, External Ris In - 01/21/2019 8:30 AM CSTVentricular Rate 84 BPMAtrial Rate 84 BPMP-R Interval 202 msQRS Duration 166 msQ-T Interval 472 msQTC Calculation(Bazett) 557 msP [place] 70 degreesR [place] 4 degreesT [place] 156 degreesSinus rhythm with Premature supraventricular complexesLeft bundle branch blockAbnormal ECGConfirmed by MD JANA, MISAEL Baires ([id number]) on 01/21/2019 8:30:13 [facility] [id number] 07:55:00 Test Item Value Reference Range Interpretation Comments POC-GLUCOSE METER 209 mg/dL 70-110 H : TESTED A T [facility] 6720 (BEAKER) (test code = [place]UDE RODRIGUEZ [place], 1538) [address]: Manager Parking/Techni pelon ID = [id number] for FAYE MURCIA ELLIOTT [id number] 04:44:00 Test Item Value Reference Range Interpretation Comments MAGNESIUM (BEAKER) (test code = 1.7 mg/dL 1.6-2.6 627) BASIC METABOLIC [id number] 04:44:00 Test Item Value Reference Range Interpretation [...] Specimen slightly ictericCBC W/PLT COUNT & AUTO [id number] 04:28:00 Test Item Value Reference Range Interpretation [...] PERCENT (BEAKER) (test code = 2801) POCT-GLUCOSE [id number] 21:19:00 Test Item Value Reference Range Interpretation Comments POC-GLUCOSE METER 215 mg/dL 70-110 H : TESTED A T [facility] 6720 (BEAKER) (test code = [place], 1538) [address]: Manager Parking/Techni pelon ID = [id number] for [place] ALFOZNO, JARETH POCT-GLUCOSE [id number] 17:15:00 Test Item Value Reference Range Interpretation Comments POC-GLUCOSE METER 296 mg/dL 70-110 H : TESTED A T [place] [address] (BEAKER) (test code = [facility], 1538) [address]: Manager Parking/Techni pelon ID = [id number] for CAMI MEJIA POCT-GLUCOSE [id number] 13:11:00 Test Item Value Reference Range Interpretation Comments POC-GLUCOSE METER 292 mg/dL 70-110 H : TESTED A T [place] [address] (BEBANNER) (test code = [facility], 1538) 62403: Manager Parking/Techni pelon ID = [id number] for AG UILAR, PEDRO Prepare Leuko-Red [id number] 11:16:00 Test Item Value Reference Range Interpretation Comments CROSSMATCH (test code = COMPATIBLE 4) Unit ABO (test code = A Neg 7554205) UNIT NUMBER (test code = [id number] 934-0) Status (test code = RETURNED FROM ISSUE 5410500) Blood Bank Product (test RED BLOOD CELLS code = 2263) PRODUCT CODE (test code = U2262Q29 933-2) [facility] ACTIVATED CLOTTING [id number] 10:21:00 Test Item Value Reference Range Interpretation Comments Activated Clotting Time 351 sec Refe rence Range: 74-137 (test code = 441) seconds, B aseline/TESTED AT [place] [address] [facility] 7[address] 0 [facility]-[id number] 10:21:00 Test Item Value Reference Range Interpretation Comments ACTIVATED CLOTTING TIME 351 sec Refe rence Range: (BEAKER) (test code = 74-137 seconds, 441) Baseline/TESTED AT [address] [address] Urinalysis w/Microscopic + Reflex to [id number] 10:04:00 Test Item Value Reference Range Interpretation Comments Color, UA (test code = 5778-6) Yellow Clarity, UA (test code = 5767-9) Cloudy Specific [place], UA (test code = 1.011 1.001-1.035 5811-5) pH, UA (test code = 5803-2) 5.5 5.0-8.0 Protein, UA (test code = 93158-5) 10 mg/dL Negative A Glucose, UA (test code = 365) Negative Negative Ketones, UA (test code = 2514-8) Negative Negative Bilirubin, UA (test code = Negative Negative 40737-0) Blood, UA (test code = 10451-7) Moderate Negative A Nitrite, UA (test code = 5802-4) Positive Negative A Leukocytes, UA (test code = Large Negative A 5799-2) Urobilinogen, UA (test code = 0.2 mg/dL 0.2-1 53226-2) RBC, UA (test code = 86842-8) 10 /HPF WBC, UA (test code = 5821-4) 512 /HPF Bacteria, UA (test code = 50904-4) Many Mucus (test code = 8247-9) Occasional Specimen Source (test code = 2795) Lab Interpretation (test code = Abnormal 39207-4) [facility]LEX URINE [id number] 10:04:00 Test Item Value Reference Range Interpretation [...] = 2795) CBC W/PLT COUNT & AUTO [id number] 07:17:00 Test Item Value Reference Range Interpretation [...] = 3438) Received comment: User comments: Slide comments:[id number] 04:40:00 Test Item Value Reference Range Interpretation Comments PTT (test code = 53282-7) 44.7 22.5- 36.0 seconds H Lab Interpretation (test code = Abnormal 86136-6) [facility] CenterAPTT[facility] 04:40:00 Test Item Value Reference Range Interpretation Comments PARTIAL THROMBOPLASTIN TIME 44.7 seconds 22.5-36.0 H (BEAKER) (test code = 760) [id number] 04:37:00 Test Item Value Reference Range Interpretation Comments MAGNESIUM (BEAKER) (test code = 1.6 mg/dL 1.6-2.6 627) BASIC METABOLIC [id number] 04:37:00 Test Item Value Reference Range Interpretation [...] FOR DIALYSIS PATIEN TS. Specimen slightly ictericPOCT-GLUCOSE [id number] 23:26:00 Test Item Value Reference Range Interpretation Comments POC-GLUCOSE METER 244 mg/dL 70-110 H : TESTED A T [facility] 6720 ([employer]) (test code = [facility], 1538) 70280: Manager Parking/Techni pelon ID = [id number] for PERLA CALVIN [id number] 18:33:00 Test Item Value Reference Range Interpretation Comments PARTIAL THROMBOPLASTIN TIME 54.1 seconds 22.5-36.0 H (BEAKER) (test code = 760) 6 hours after starting heparin infusion and as indicated per sliding scalePOCT- GLUCOSE [id number] 17:00:00 Test Item Value Reference Range Interpretation Comments POC-GLUCOSE METER 96 mg/dL 70-110 : TESTED A T [facility] 6720 ([employer]) (test code = [facility], 1538) 14094: Manager Parking/Techni pelon ID = [id number] for SHARI LION POCT-GLUCOSE [id number] 11:49:00 Test Item Value Reference Range Interpretation Comments POC-GLUCOSE METER 243 mg/dL 70-110 H : TESTED A T [facility] 6720 (BEAKER) (test code = [facility], 1538) 30601: Manager Parking/Techni pelon ID = [id number] for ZEN GRECO [id number] 11:45:00 Test Item Value Reference Range Interpretation Comments PARTIAL THROMBOPLASTIN TIME 35.9 seconds 22.5-36.0 (BEAKER) (test code = 760) Prior to initiating heparinPOCT-GLUCOSE [id number] 08:17:00 Test Item Value Reference Range Interpretation Comments POC-GLUCOSE METER 129 mg/dL 70-110 H : TESTED A T [facility] 6720 (BEAKER) (test code = [facility], 1538) 20513: Manager Parking/Techni pelon ID = [id number] for LISA GUZMAN CBC W/PLT COUNT & AUTO [id number] 07:30:00 Test Item Value Reference Range Interpretation [...] = 3438) Received comment: User comments: Slide comments:[id number] 05:20:00 Test Item Value Reference Range Interpretation Comments MAGNESIUM (BEAKER) (test code = 1.9 mg/dL 1.6-2.6 627) BASIC METABOLIC [id number] 05:20:00 Test Item Value Reference Range Interpretation [...] DIALYSIS PATIEN TS. Specimen slightly ictericLactic acid, [id number] 04:27:00 Test Item Value Reference Range Interpretation Comments Lactate, Venous (test code = 2872) 0.8 mmol/L 0.5-2.2 Lab Interpretation (test code = Normal 96254-9) [facility] CenterLACTIC ACID, [id number] 04:27:00 Test Item Value Reference Range Interpretation Comments LACTATE BLOOD VENOUS (2) (BEAKER) 0.8 mmol/L 0.5-2.2 (test code = 2872) POCT-GLUCOSE [id number] 22:51:00 Test Item Value Reference Range Interpretation Comments POC-GLUCOSE METER 84 mg/dL 70-110 : TESTED A T [facility] 6720 (BEAKER) (test code = [facility], 1538) 98075: Manager Parking/Techni pelon ID = [id number] for Veronica Clark POCT-GLUCOSE [id number] 17:53:00 Test Item Value Reference Range Interpretation Comments POC-GLUCOSE METER 131 mg/dL 70-110 H : TESTED A T [facility] 6720 (BEAKER) (test code = [facility], 1538) 13616: Manager Parking/Techni pelon ID = [id number] for ERLIN SALGADO POCT-GLUCOSE [id number] 13:26:00 Test Item Value Reference Range Interpretation Comments POC-GLUCOSE METER 197 mg/dL 70-110 H : TESTED A T [facility] 6720 (BEAKER) (test code = [facility], 1538) 00040: Manager Parking/Techni pelon ID = [id number] for Myron Garcia POCT-GLUCOSE [id number] 12:27:00 Test Item Value Reference Range Interpretation Comments POC-GLUCOSE METER 196 mg/dL 70-110 H : TESTED A T [facility] 6720 (BEAKER) (test code [facility], = 1538) 13000: Manager Parking/Techni pelon ID = [id number] for JAIM E MARISABEL, JON POCT-GLUCOSE [id number] 08:00:00 Test Item Value Reference Range Interpretation Comments POC-GLUCOSE METER 193 mg/dL 70-110 H : TESTED A T [facility] 6720 (BEAKER) (test code [facility], = 1538) 59426: Manager Parking/Techni pelon ID = [id number] for JAIM E MARISABEL, JON [id number] 06:12:00 Test Item Value Reference Range Interpretation Comments MAGNESIUM (BEAKER) (test code = 1.9 mg/dL 1.6-2.6 627) BASIC METABOLIC [id number] 06:12:00 Test Item Value Reference Range Interpretation [...] APPLICABLE FOR DIALYSIS PATIEN TS. Specimen slightly [id number] 04:08:00 Test Item Value Reference Range Interpretation Comments PARTIAL THROMBOPLASTIN TIME 49.1 seconds 22.5-36.0 H (BEAKER) (test code = 760) CBC W/PLT COUNT & AUTO [id number] 03:51:00 Test Item Value Reference Range Interpretation [...] H PERCENT (BEAKER) (test code = 2801) [id number] 17:19:00 Test Item Value Reference Range Interpretation Comments ACTIVATED CLOTTING TIME 422 sec Refe rence Range: (BEAKER) (test code = 74-137 seconds, 441) Baseline/TESTED AT [address] [address] 0 POCT-GLUCOSE [id number] 17:11:00 Test Item Value Reference Range Interpretation Comments POC-GLUCOSE METER 187 mg/dL 70-110 H : TESTED A T [facility] 6720 ([facility]) (test code = [facility], 1538) 05105: Manager Parking/Techni pelon ID = [id number] for MA THEW, MINI POCT-GLUCOSE [id number] 07:28:00 Test Item Value Reference Range Interpretation Comments POC-GLUCOSE METER 177 mg/dL 70-110 H : TESTED A T [facility] 6720 (BEBANNER) (test code = [facility], 1538) 53164: Manager Parking/Techni pelon ID = [id number] for CO RTEZ, KATJA Type and screen, [id number] 07:03:00 Test Item Value Reference Range Interpretation Comments ABO/RH AUTOMATED (BEAKER) (test A NEGATIVE code = 2260) Ab Scrn (test code = 890-4) NEGATIVE [facility] CenterMAGNESIUM2019-12-06 06:53:00 Test Item Value Reference Range Interpretation Comments MAGNESIUM (BEAKER) (test code = 1.9 mg/dL 1.6-2.6 627) BASIC METABOLIC [id number] 06:53:00 Test Item Value Reference Range Interpretation [...] APPLICABLE FOR DIALYSIS PATIEN TS. Specimen slightly [id number] 06:14:00 Test Item Value Reference Range Interpretation Comments PARTIAL THROMBOPLASTIN TIME 37.8 seconds 22.5-36.0 H (BEAKER) (test code = 760) Within 24 hours, if on CoumadinProthrombin time/[id number] 06:13:00 Test Item Value Reference Range Interpretation [...] Coumadin Lab Interpretation Abnormal (test code = 53252-2) [facility] CenterPROTHROMBIN TIME/[id number] 06:13:00 Test Item Value Reference Range Interpretation [...] if on CoumadinCBC W/PLT COUNT & AUTO [id number] 06:08:00 Test Item Value Reference Range Interpretation [...] PERCENT (BEAKER) (test code = 2801) POCT-GLUCOSE [id number] 22:09:00 Test Item Value Reference Range Interpretation Comments POC-GLUCOSE METER 117 mg/dL 70-110 H : TESTED A T [facility] 6720 (BEAKER) (test code = [facility], 153) 39250: Manager Parking/Techni pelon ID = [id number] for EA GLIN, JALISSIA POCT-GLUCOSE [id number] 17:33:00 Test Item Value Reference Range Interpretation Comments POC-GLUCOSE METER 190 mg/dL 70-110 H : TESTED A T [facility] 6720 (BEAKER) (test code = [facility], 1538) 39974: Manager Parking/Techni pelon ID = [id number] for Sandra aviles Ekta POCT-GLUCOSE [id number] 12:13:00 Test Item Value Reference Range Interpretation Comments POC-GLUCOSE METER 205 mg/dL 70-110 H : TESTED A T [facility] 6720 (BEAKER) (test code = [facility], 1538) 50117: Manager Parking/Techni pelon ID = [id number] for GR AVGUILHERME, JACOB POCT-GLUCOSE [id number] 07:50:00 Test Item Value Reference Range Interpretation Comments POC-GLUCOSE METER 134 mg/dL 70-110 H : TESTED A T [facility] 6720 (BEAKER) (test code = [facility] [place], 1538) 11946: Manager Parking/Techni pelon ID = [id number] for Ekta Alcaraz [id number] 05:35:00 Test Item Value Reference Range Interpretation Comments MAGNESIUM (BEAKER) (test code = 1.9 mg/dL 1.6-2.6 627) BASIC METABOLIC [id number] 05:35:00 Test Item Value Reference Range Interpretation [...] APPLICABLE FOR DIALYSIS PATIEN TS. Specimen slightly [id number] 05:17:00 Test Item Value Reference Range Interpretation Comments PARTIAL THROMBOPLASTIN TIME 70.7 seconds 22.5-36.0 H (BEAKER) (test code = 760) CBC W/PLT COUNT & AUTO [id number] 05:14:00 Test Item Value Reference Range Interpretation [...] PERCENT (BEAKER) (test code = 2801) POCT-GLUCOSE [id number] 21:34:00 Test Item Value Reference Range Interpretation Comments POC-GLUCOSE METER 120 mg/dL 70-110 H : TESTED [place] [facility] 6720 (BEAKER) (test code = [facility] [place], 1538) 75094: Manager Parking/Techni pelon ID = [id number] for Cisco cohenAmna POCT-GLUCOSE [id number] 18:06:00 Test Item Value Reference Range Interpretation Comments POC-GLUCOSE METER 157 mg/dL 70-110 H : TESTED [place] [facility] 6720 ([place]IO) (test code = [facility] [place], 1538) 949[address]: Manager Parking/Techni pelon ID = [id number] for JACOB LOZA Arterial doppler legs dpepviepn4031-36-01 16:53:20Ejection FractionSLEH ECHO HEARTLAB MKCKESSON CPACSRight Impression1. [...] + + + + + + !Prox ORTHOTIC TECHNICIAN ! !70.7 ! !Biphasic ! !38.9 !6.68 !Biphasic ! + + + + + + + + + + !Mid ORTHOTIC TECHNICIAN ! !49.1 ! !Biphasic ! !53.8 !4.32 !Biphasic ! + + + + + + + + + + !Dist ORTHOTIC TECHNICIAN ! !46 ! !Biphasic ! !29.9 ! 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 !70.7 ! !Biphasic ! !38.9 !6.68 !Biphasic ! + + + + + + + + + + !Mid ORTHOTIC TECHNICIAN ! !49.1 ! !Biphasic ! !53.8 !4.32 !Biphasic ! + + + + + + + + + + !Dist ORTHOTIC TECHNICIAN ! !46 ! !Biphasic ! !29.9 ! !Biphasic ! + + + + + + + + + + !Prox VEGA ! !29 ! !Monophasic ! !33.4 ! !Monophasic ! + + + + + + +--------- ---------+ + + !Dist VEGA ! + +[facility] CenterCarotid doppler [id number] 16:53:04Ejection FractionSLEH ECHO HEARTLAB MKCKESSON CPACSRight Impression1. 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 Yu. Signed: Elmer Sotelo MDReport Verified Date/Time: 01/15/201914:11:09 Reading Location: [place] [address] Angio Body Reading RoomAddendum EndsFINAL REPORT CT [...] measures 9 and 10 mm, respectively with yjtl-go-razmcnxe tortuosity and minimal calcific atherosclerosis present. The [...] regarding the non- vascular findings by the [facility] Radiologist. Signed: Sudarshan Yu Verified Date/Time: 01/14/2019 18:44:15 02:11 PMCT, CTA, [id number] 14:11:00 Addendum BeginsREPORT STATUS:A Addendum: I agree with the previously described non vascular findings by Dr. Yu. Signed: Elmer Sotelo Verified Date/Time: 01/15/201914:11:09 Reading Location: [place] [address] Angio Body Reading RoomAddendum EndsFINAL REPORT CT [...] measures 9 and 10 mm, respectively with ffix-pc-qqovmrjl tortuosity and minimal calcific atherosclerosis present. The [...] regarding the non- vascular findings by the [facility] Radiologist. Signed: Sudarshan Yu Verified Date/Time: 01/14/2019 18:44:15 02:11 PMPOCT-GLUCOSE [id number] 12:29:00 Test Item Value Reference Range Interpretation Comments POC-GLUCOSE METER 182 mg/dL 70-110 H : TESTED A T [facility] 6720 (BEAKER) (test code = [employer] [place] [facility], 1538) 98825: Manager Parking/Techni pelon ID = [id number] for Ekta Alcaraz [id number] 09:51:00 Test Item Value Reference Range Interpretation Comments PARTIAL THROMBOPLASTIN TIME 74.2 seconds 22.5-36.0 H (BEAKER) (test code = 760) Hemoglobin [id number] 09:03:00 Test Item Value Reference Range Interpretation Comments Hemoglobin A1C (test code = 4548-4) 8.3 % 4.3-6.1 H Lab Interpretation (test code = Abnormal 69669-7) [facility] CenterHEMOGLOBIN [id number] 09:03:00 Test Item Value Reference Range Interpretation Comments HEMOGLOBIN A1C (BEAKER) (test code = 8.3 % 4.3-6.1 H 368) POCT-GLUCOSE [id number] 07:57:00 Test Item Value Reference Range Interpretation Comments POC-GLUCOSE METER 175 mg/dL 70-110 H : TESTED A T [facility] 6720 (BEAKER) (test code = [facility] [address] [facility], 1538) 35803: Manager Parking/Techni pelon ID = [id number] for Ekta Alcaraz Occult blood, [id number] 06:02:00 Test Item Value Reference Range Interpretation Comments Occult blood (test code = 2335-8) Positive Negative A Lab Interpretation (test code = Abnormal 51794-2) [facility] CenterOCCULT BLOOD, [id number] 06:02:00 Test Item Value Reference Range Interpretation Comments FECAL OCCULT BLOOD (BEAKER) (test Positive Negative A code = 618) [id number] 02:45:00 Test Item Value Reference Range Interpretation Comments MAGNESIUM (BEAKER) (test code = 1.7 mg/dL 1.6-2.6 627) BASIC METABOLIC [id number] 02:45:00 Test Item Value Reference Range Interpretation [...] APPLICABLE FOR DIALYSIS PATIEN TS. Specimen slightly [id number] 02:33:00 Test Item Value Reference Range Interpretation Comments PARTIAL THROMBOPLASTIN TIME 71.0 seconds 22.5-36.0 H (BEAKER) (test code = 760) CBC W/PLT COUNT & AUTO [id number] 02:21:00 Test Item Value Reference Range Interpretation [...] PERCENT (BEAKER) (test code = 2801) POCT-GLUCOSE [id number] 22:13:00 Test Item Value Reference Range Interpretation Comments POC-GLUCOSE METER 141 mg/dL 70-110 H : TESTED A T [facility] 6720 (BEAKER) (test code = [place], 1538) 26[address]: Manager Parking/Techni pelon ID = [id number] for LUIZA LÓPEZ [id number] 20:10:00 Test Item Value Reference Range Interpretation Comments PARTIAL THROMBOPLASTIN TIME 61.0 seconds 22.5-36.0 H (BEAKER) (test code = 760) CTA abdomen & [id number] 18:44:00Interface, External Ris In - 01/15/2019 2:13 PM CSTAddendum BeginsREPORT STATUS:A Addendum: I agree with the previously described non vascular findings by Dr. Yu. Signed: Elmer Sotelo MDReport Verified Date/Time: 01/15/2019 14:11:09 Reading Location: [place] [address] Angio Body Reading RoomAddendum EndsFINAL REPORT CT [...] measures 9 and 10 mm, respectively with iipj-wd-ztyejwsi tortuosity and minimal calcific atherosclerosis present. The [...] dictated regarding the non-vascular findings by the [facility] Radiologist. Signed: Sudarshan Yu Verified Date/Time: 01/14/2019 18:44:15 [facility]CT [id number] 18:44:00Interface, External Ris In - 01/15/2019 2:13 PM CSTAddendum BeginsREPORT STATUS:A Addendum: I agree with the previously described non vascular findings by Dr. Yu. Signed: Elmer Soteloort Verified Date/Time: 01/15/2019 14:11:09 Reading Location: [place] [address] Angio Body Reading RoomAddendum EndsFINAL REPORT CT [...] measures 9 and 10 mm, respectively with ysnq-cv-svmenixs tortuosity and minimal calcific atherosclerosis present. The [...] dictated regarding the non-vascular findings by the [facility] Radiologist. Signed: Sudarshan Yu Verified Date/Time: 01/14/2019 18:44:15 [facility] CenterPOCT-GLUCOSE [id number] 17:40:00 Test Item Value Reference Range Interpretation Comments POC-GLUCOSE METER 204 mg/dL 70-110 H : TESTED A T [facility] 6720 (BEAKER) (test code = [facility], 1538) 16822: Manager Parking/Techni pelon ID = [id number] for EC HEBIRI, ZACH POCT-GLUCOSE [id number] 14:33:00 Test Item Value Reference Range Interpretation Comments POC-GLUCOSE METER 217 mg/dL 70-110 H : TESTED A T [facility] 6720 (BEAKER) (test code = [facility] [address] [facility], 1538) 06371: Manager Parking/Techni pelon ID = [id number] for EC HEBIRI, ZACH POCT-GLUCOSE [id number] 12:53:00 Test Item Value Reference Range Interpretation Comments POC-GLUCOSE METER 226 mg/dL 70-110 H : TESTED A T [facility] 6720 (BEAKER) (test code = [facility] [address] [facility], 1538) 18438: Manager Parking/Techni pelon ID = [id number] for JOSE LUIS GLASS 2D Echo W/Doppler(CW/PW/Color)2019-01-14 12:25:20Ejection [facility] ECHO HEARTLAB MKCKESSON CPACSInterface, External Ris In - 01/14/2019 12:25 PM C STTransthoracic Echocardiography Report (TTE) Demographics Patient Name KRYSTIAN RUBIN Date of Study 01/14/2019 [facility] Gender Male Visit Number [id number] Race Unknown Room Number 1135 Number Date of 1935 Referring Lobo Perry MD Physician Age 83 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 Grade 2 diastolic dysfunction [...] by Glynn's method of disk assessment is lllocb-xh-fyvoxhzrkz reduced (40%) . Grade 2 diastolic dysfunction [...] LVOT CO: 3.76 l/min LVOT CI: 1.79 l/min/m^2CJerold Phelps [facility] HospitalAPTT2019-12-03 10:33:00 Test Item Value Reference Range Interpretation Comments PARTIAL THROMBOPLASTIN TIME 58.1 seconds 22.5-36.0 H (BEAKER) (test code = 760) 6 hours after starting heparin infusion and as indicated per sliding scale Troponin [id number] 08:35:00 Test Item Value Reference Range Interpretation Comments Troponin I (test code = 5.61 ng/mL 0-0.03 89091-7) BEATRIZ (test code = BEATRIZ) Troponin I [...] tachyarrhythmia. Lab Interpretation (test Abnormal code = 44582-8) [facility] CenterTROPONIN [id number] 08:35:00 Test Item Value Reference Range Interpretation [...] acidosis, acute neurological disease, and persistent tachyarrhythmia.POCT-GLUCOSE [id number] 08:19:00 Test Item Value Reference Range Interpretation Comments POC-GLUCOSE METER 214 mg/dL 70-110 H : Notified RN/MD: (JEBLEYLA) (test code = TESTED AT [facility] 6720 1538) [place] [facility], [address]: Manager Parking/Techni pelon ID = [id number] for JOSE LUIS GLASS [id number] 02:46:00 Test Item Value Reference Range Interpretation Comments MAGNESIUM (BEAKER) (test code = 2.0 mg/dL 1.6-2.6 627) BASIC METABOLIC [id number] 02:46:00 Test Item Value Reference Range Interpretation [...] APPLICABLE FOR DIALYSIS PATIEN TS. Specimen slightly ictericPT/[id number] 02:32:00 Test Item Value Reference Range Interpretation Comments Protime (test code = 15.7 11.9- 14.2 H 5902-2) seconds INR (test code = 1.3 <=5.9 6301-6) PTT (test code = 46.1 22.5- 36.0 H 72708-2) seconds BEATRIZ (test code = BEATRIZ) Effective 07/10/2018: PT Reference Range ChangeNew: 11.9-14.2 Previous: 11.7-14.7 RECOMMENDED COUMADIN/WARFARIN INR THERAPY RANGESSTANDARD DOSE: 2.0-3.0 Includes: PROPHYLAXIS for venous thrombosis, systemic embolization; TREATMENT for venous thrombosis and/or pulmonary embolus.HIGH RISK: Target INR is 2.5-3.5 for patients wiht mechanical heart valves. Lab Interpretation Abnormal (test code = 47683-0) [facility] CenterPT/[id number] 02:32:00 Test Item Value Reference Range Interpretation [...] mechanical heart valves.CBC W/PLT COUNT & AUTO [id number] 02:05:00 Test Item Value Reference Range Interpretation [...] = 2801) RAD, CHEST, 1 VIEW, NON [id number] 00:46:00Reason for exam:->pulmn edema, ASShould this be [...] Luna MDReport Verified Date/Time: 01/14/2019 00:46:23 HEMOGLOBIN [id number] 22:28:00 Test Item Value Reference Range Interpretation Comments HEMOGLOBIN A1C ([place]) (test code = 8.2 % 4.3-6.1 H 368) TSH/Free T4 If [id number] 21:46:00 Test Item Value Reference Range Interpretation Comments TSH (test code = 15628-7) 1.51 0.35- 4.94 uIU/mL Lab Interpretation (test code = Normal 05283-9) [facility] CenterTSH/FREE T4 IF [id number] 21:46:00 Test Item Value Reference Range Interpretation Comments THYROID STIMULATING HORMONE 1.51 uIU/mL 0.35-4.94 ([place]) (test code = 772) POCT-GLUCOSE [id number] 21:42:00 Test Item Value Reference Range Interpretation Comments POC-GLUCOSE METER 218 mg/dL 70-110 H : TESTED A T [facility] 6720 ([place]) (test code = JUDE Cyrus [facility], 1538) [address]: Manager Parking/Techni pelon ID = [id number] for LUIZA LÓPEZ TROPONIN [id number] 21:17:00 Test Item Value Reference Range Interpretation [...] acidosis, acute neurological disease, and persistent tachyarrhythmia.ABORH, [id number] 21:11:00 Test Item Value Reference Range Interpretation Comments ABO Grouping (test code = 2588) A Rh Factor (test code = 2589) [facility]G [facility] [id number] 21:08:00 Test Item Value Reference Range Interpretation Comments Triglycerides (test 102 mg/dL code = 2571-8) Cholesterol (test code 130 mg/dL = 2093-3) HDL (test code = 26 mg/dL 2084-) LDL Calculated (test 84 mg/dL code = 37623-6) BEATRIZ (test code = BEATRIZ) Triglyceride Reference Range: Low Risk <150 Borderline 150-199 High Risk 200-499 Very High Risk >=500 Cholesterol Reference Range: Low Risk <200 Borderline 200-239 High Risk >240 HDL Cholesterol Reference Range: Low Risk >=60 High Risk <40 LDL Cholesterol Reference Range: Optimal <100 Near Optimal 100-129 Borderline 130-159 High 160-189 Very High >=190 Specimen slightly icteric [id number] 21:08:00 Test Item Value Reference Range Interpretation [...] Very High >=190 Specimen slightly ictericHepatic function [id number] 20:11:00 Test Item Value Reference Range Interpretation Comments Protein, Total (test code 6.1 6.0- 8.3 gm/dL = 2885-2) Albumin (test code = 3.6 g/dL 3.5-5 79399-3) Total Bilirubin (test code 2.4 mg/dL 0.2-1.2 H = 1974-2) Bilirubin, Direct (test 1.0 mg/dL 0.1-0.5 H code = 1967-7) Alkaline Phosphatase (test 62 U/L 40-150 code = 6768-6) AST (test code = 1920-8) 23 U/L 5-34 ALT (test code = 1742-6) 10 U/L 6-55 BEATRIZ (test code = BEATRIZ) Specimen slightly icteric Lab Interpretation (test Abnormal code = 77995-6) [facility] [id number] 20:11:00 Test Item Value Reference Range Interpretation [...] Range Interpretation Comments BNP (test code = 99158-3) 1799 pg/mL 0-100 H Lab Interpretation (test code = Abnormal 45272-1) [facility] (BNP)2019-01-13 19:19:00 Test Item Value Reference Range Interpretation Comments B-TYPE NATRIURETIC PEPTIDE 1799 pg/mL 0-100 H (BEAKER) (test code = 700) [id number] 19:13:00 Test Item Value Reference Range Interpretation Comments MAGNESIUM (BEAKER) (test code = 1.6 mg/dL 1.6-2.6 627) BASIC METABOLIC [id number] 19:13:00 Test Item Value Reference Range Interpretation [...] APPLICABLE FOR DIALYSIS PATIEN TS. Specimen slightly ictericPT/[id number] 19:03:00 Test Item Value Reference Range Interpretation [...] is2.5-3.5 for patients wiht mechanical heart valves.POCT-GLUCOSE [id number] 18:37:00 Test Item Value Reference Range Interpretation Comments POC-GLUCOSE METER 149 mg/dL 70-110 H : TESTED A T [facility] 6720 ([employer]) (test code = JUDE RODRIGUEZ DE, 1538) [address]132: Manager Parking/Techni pelon ID = [id number] for MYRA FITZGERALD
[2019-12-15] MEDS ORDERED: GLUCAGON 1 MG/VIAL IM PRN ×2 (15:31→15:41)
[2019-12-15] MEDS ORDERED: D50W 25 GM/50 ML SYRINGE IV PRN ×2 (15:31→15:41)
[2019-12-15] MEDS ORDERED: POLYETHYL GLY 3350 17 GM/DOSE PO PRN (15:45)
[2019-12-15] MEDS ORDERED: BISACODYL 10 MG RECTAL SUPP PR PRN (15:47)
[2019-12-15 15:49] VITALS: BMI 27.6
[2019-12-15] MEDS ORDERED: ONDANSETRON 4 MG (ODT) TAB PO PRN (15:49)
[2019-12-15] MEDS ORDERED: INSULIN -REGULAR HUMAN 50 UNIT/0.5 ML ML SQ SCH (16:30)
[2019-12-15 17:38] LABS: Urine Appearance TURBID; Urine Bilirubin NEGATIVE (NEG); Urine Blood 1+ (NEG); Urine Color YELLOW; Urine Glucose 3+ (NEG); Urine Protein 1+ (NEG); Urine Specific Gravity 1.015 (1.005-1.030)
[2019-12-15 17:50] LABS: Urine Bacteria <20 /HPF (NONE SEEN); Urine Culture Reflex Order NOT NEEDED; Urine Mucus 2+ /HPF (NONE SEEN)
[2019-12-15] MEDS: INSULIN GLARGINE 100 UNITS/ML SQ SCH (20:13)
[2019-12-15] MEDS: INSULIN -REGULAR HUMAN 50 UNIT/0.5 ML ML SQ SCH (20:14)
[2019-12-15] MEDS: HYDROCODONE/APAP 5/325 MG TAB PO PRN (20:15)
[2019-12-15] MEDS: DOCUSATE NA 100 MG CAP PO SCH (20:15)
[2019-12-15] MEDS: ATORVASTATIN 80 MG TAB PO SCH (20:15)
[2019-12-16 05:58] LABS: Absolute Lymphocytes (CBC) 0.9 K/uL (0.7-4.9); Basophils % 0.4 % (0-1.3); Hematocrit 25.5 % (39.6-49.0); Lymphocytes % 15.6 % (15.3-44.8); RBC Red Blood Cell Count 2.93 M/uL (4.33-5.43)
[2019-12-16 06:16] LABS: Albumin 2.6 g/dL (3.4-5.0); BUN Blood Urea Nitrogen 13 mg/dL (7-18); Bicarbonate 29 mmol/L (21-32); Glucose Level 199 mg/dL (74-106); Magnesium 2.2 mg/dL (1.8-2.4); Potassium 3.8 mmol/L (3.5-5.1); Prealbumin 6.7 mg/dL (20-40); Sodium Level 138 mmol/L (136-145)
[2019-12-16] MEDS: LEVOTHYROXINE SOD 0.05 MG TABLET PO SCH (06:41)
[2019-12-16 07:51] LABS: Blood Morphology Comment NOT SEEN (NOT SEEN); Platelet Estimate ADEQ
[2019-12-16] MEDS: HYDROCODONE/APAP 5/325 MG TAB PO PRN ×3 (07:57→20:19)
[2019-12-16] MEDS: INSULIN -REGULAR HUMAN 50 UNIT/0.5 ML ML SQ SCH ×4 (08:01→20:41)
[2019-12-16] MEDS: DOCUSATE NA 100 MG CAP PO SCH ×2 (08:01→20:18)
[2019-12-16] MEDS: VALSARTAN 80 MG TAB PO SCH (08:01)
[2019-12-16] MEDS: FINASTERIDE 5 MG TAB PO SCH (08:01)
[2019-12-16] MEDS: INSULIN GLARGINE 100 UNITS/ML SQ SCH ×2 (08:01→20:18)
[2019-12-16] MEDS: CLOPIDOGREL 75 MG TABLET PO SCH (08:02)
--- NOTE | 2019-12-16 11:48 | P.PN ---
Subjective Date of Service: 12/16/19 Chief Complaint: DOING GOOD. Subjective: Improving SP HIP FRACTURE,HERE FOR PT. Review of Systems 10-point ROS is otherwise unremarkable Physical Examination - Vital Signs Temperature: 99 F Blood Pressure: 137/64 Pulse: 80 Respirations: 16 Pulse Ox (%): 95 - Physical Exam General: Mild distress HEENT: Atraumatic, PERRLA, EOMI Neck: Supple, JVD not distended Respiratory: Clear to auscultation bilaterally, Normal air movement Cardiovascular: Regular rate/rhythm, Normal S1 S2 Gastrointestinal: Normal bowel sounds, No tenderness Musculoskeletal: No tenderness Integumentary: No rashes Neurological: Normal speech, Normal tone, Normal affect Lymphatics: No axilla or inguinal lymphadenopathy - Studies Laboratory Data (last 24 hrs) 12/16/19 05:43: Sodium 138, Potassium 3.8, BUN 13, Creatinine 0.76, Glucose 199 H, Magnesium 2.2 12/16/19 05:43: WBC 6.0, Hgb 9.0 L, Hct 25.5 L, Plt Count 119 L D Medications List Reviewed: Yes Assessment And Plan - Current Problems (Diagnosis) (1) Closed right hip fracture Current Visit: No Status: Acute Plan: CONT PT . FALL PREC. Qualifiers: Encounter type: subsequent encounter (2) Diabetes type 2, controlled Onset Date: 03/05/17 Current Visit: No Status: Chronic Plan: FU ON LDL AND A1C DONE.
[2019-12-16] MEDS: RIVAROXABAN 10 MG TABLET PO SCH (12:20)
--- NOTE | 2019-12-16 17:03 | R.HP ---
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 board/care, assisted living, jail, transitional living) PRE-HOSPITAL LIVING WITH Family/Relatives ENCOUNTER PHYSICIAN: Dr. Gopal Merrill M.D. 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 is a 84 yo Right-handed male of unknown race. On 12/11/2019 he was admitted to [facility] with diagnosis RIGHT HIP FRACTURE. His impairment category is Orthopaedic Disorders 08 - Unilateral Hip Fracture (08.11). Pre-morbidly, Pt. was independent/mod-I in Safety Awareness, Self-Care, and Communication; and he had good Sphincter Control, Transfers Control, and Locomotion. Currently, he has deficits of Endurance, Safety Awareness, Locomotion, Balance, and Sphincter Control . Pt. is now referred to [facility] for acute in-patient rehabilitation in order to maximize patient's functional independence in activities of daily living, strength, ROM, and mobi lity. Patient has realistic goal of being discharged at assistance level 7-Ind to reside at Home with Fami ly/Relatives. Mr. Daily is a 84 year old male that lives independently at home with his , Karen. They have no stairs to enter their home. The patient was in good health until he tripped on the last step while out and fell breaking his right hip He underwent a right hip hemiarthroplasty and is working very well with PT. 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 The patient would most definitely benefit from acute inpatient rehab and has become severely debilitated and unable to live at his prior level of activity at home getting him stronger to be back living at home independently is our goal. It is reasonable and necessary for the patient to come to acute inpatient rehab for approximately 7-10 days in order to return to his prior level of care. He is now being transferred to [facility] rehabilitation and is medically stable with relatively stable labs. He is now medically stable but in need of 24 hour nursing, doctor supervision and oversight while receiving active and participate in 3 hours of therapy a day/15 hours per week and receive care with intensive interdisciplinary approach. COVID-19 screening performed; spoke with patient via phone. Patient denies new onset of fever, cough, difficulty breathing, sore throat, body aches and non-allergy nasal congestion in the past 24 hours. Patient denies travel outside of [place] in the past 14 days. Patient denies any contact with someone who has a confirmed diagnosis of or is under investigation for COVID-19 in the past 14 days. Patient has been tested negative for COVID- 19. MEDICATION ALLERGIES: No Known Drug Allergies (NKDA) ENVIRONMENTAL ALLERGIES: - Substance Allergies None Known - Other Allergies None Known PAST MEDICAL HISTORY: CAD HTN NIDDM GLAUCOMA PAST SURGICAL HISTORY: BILATERAL KNEES BILATERAL CATARACTS CARPAL TUNNEL CAM CARIAC STENT X2 2018 HEART VALVE 2019 SOCIAL HISTORY: - Home Living Family/Relatives REVIEW OF SYSTEMS: - Gen No Chills No Fatigue No Fever - Eyes No Double Vision No itchiness - ENMT No Difficulty Swallowing - CVS No Chest Discomfort No Chest Pain No Fatigue No Weight Gain - Resp No Cough No Shortness of Breath - GI Continent No Abdominal Pain No Constipation No Diarrhea - Continent No Kidney Pain No Painful Urination No Urinary Urgency - MSK No Joint Pain No Muscle Cramps No Stiffness - Skin No Itching No Rash No Suspicious Lesions - Neuro No Coordination Difficulty No Difficulty with Concentration No Memory Loss No Seizures No Weakness - Psych No Anxiety No Depression No HIV Exposure No Persistent Infections No Seasonal Allergies - Endo No Cold/Heat Intolerance No Excessive Hunger No Excessive Thirst No Excessive Urination PHYSICAL EXAM - Gen Alert and awake Lying in bed No apparent distress Oriented to: person, time, and place - Skin No breakdown Normacephalic - Eyes No abnormalities - ENMT No abnormalities - Neck No abnormalities - CVS RRR - Chest No abnormalities - Resp Clear to auscultation - Abd Soft - GI + bowel sounds Deferred - No abnormalities - Ext Right hip surgical site has good hemostasis. - MSK 4+/5 weakness in right lower extremity - Neuro 4/5 strength right lower extremity. - Psych No abnormalities VITAL SIGNS Temperature: 99 F SBP/DBP: 137/64 Pulse: 80 Resp: 16 Vital signs stable, afebrile NURSING: - Shower allowing shower - Skin care per protocol PRECAUTIONS: - Anterior Hip Precaution No abduction No active extension No adduction across midline No external rotation No hip flexion >90 degrees No internal rotation - Posterior Hip Precaution No adduction across midline No external rotation No hip flexion >90 degrees No internal rotation No wheel chair propulsion - Weight Bearing Precaution WBAT right LE ACTIVITIES OOB only with supervision QI SCORES: - Self-Care A. Eating 03-Partial/moderate assistance B. Oral hygiene 03-Partial/moderate assistance C. Toileting hygiene 03-Partial/moderate assistance E. Shower/bathe self 03-Partial/moderate assistance F. Upper body dressing 03-Partial/moderate assistance G. Lower body dressing 03-Partial/moderate assistance H. Putting on/taking off footwear 88-Not attempted due to medical condition or safety concerns - Mobility A. Roll left and right 03-Partial/moderate assistance B. Sit to lying 03-Partial/moderate assistance C. Lying to sitting on side of bed 03-Partial/moderate assistance D. Sit to stand 03-Partial/moderate assistance E. Chair/zog-si-glpak transfer 03-Partial/moderate assistance F. Toilet transfer 03-Partial/moderate assistance G. Car transfer 88-Not attempted due to medical condition or safety concerns I. Walk 10 feet 88-Not attempted due to medical condition or safety concerns J. Walk 50 feet with two turns 88-Not attempted due to medical condition or safety concerns K. Walk 150 feet 88-Not attempted due to medical condition or safety concerns L. Walking 10 feet on uneven surfaces 88-Not attempted due to medical condition or safety concerns M. 1 step (curb) 88-Not attempted due to medical condition or safety concerns N. 4 steps 88-Not attempted due to medical condition or safety concerns O. 12 steps 88-Not attempted due to medical condition or safety concerns P. Picking up object 88-Not attempted due to medical condition or safety concerns R. Wheel 50 feet with two turns 88-Not attempted due to medical condition or safety concerns S. Wheel 150 feet 88-Not attempted due to medical condition or safety concerns - Bladder and Bowel Bladder continence Bowel continence - Endurance Good - Balance Good - Safety Awareness Good CURRENT FUNC. DEFICITS: Self-Care and Mobility MEDICATIONS: - Other See attached MAR (Medication Administration Record) ASSESSMENT: Pt. is a 84 yo Right-handed male of unknown race.On 12/11/2019 he was admitted to [facility] with diagnosis RIGHT HIP FRACTURE.His impairment category is Orthopaedic Disorders 08 - Unilate ral Hip Fracture (.).Pre-morbidly, Pt. was independent/mod-I in Safety Awareness, Self-Care, and Communication; and he had good Sphincter Control, Transfers Control, and Locomotion.Currently, he has deficits of Endurance, Safety Awareness, Locomotion, Balance, and Sphincter Control.Pt. is now refer red to [facility] for acute in-patient rehabilitation in order to maximize pat cadennt's functional independence in activities of daily living, strength, ROM, and mobility.- Rehab Goa l Patient has realistic goal of being discharged at assistance level 7-Ind to reside at Home with Fami ly/Relatives. Mr. Daily is a 84 year old male that lives independently at home with his , Karen. They have no stairs to enter their home. The patient was in good health until he tripped on the last step while out and fell breaking his right hip He underwent a right hip hemiarthroplasty and is working very well with PT. 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 The patient would most definitely benefit from acute inpatient rehab and has become severely debilitated and unable to live at his prior level of activity at home getting him stronger to be back living at home independently is our goal. It is reasonable and necessary for the patient to come to acute inpatient rehab for approximately 7-10 days in order to return to his prior level of care. He is now being transferred to [facility] Inpatient rehabilitation and is medically stable with relatively stable labs. He is now medically stable but in need of 24 hour nursing, doctor supervision and oversight while receiving active and participate in 3 hours of therapy a day/15 hours per week and receive care with intensive interdisciplinary approach. COVID-19 screening performed; spoke with patient via phone. Patient denies new onset of fever, cough, difficulty breathing, sore throat, body aches and non-allergy nasal congestion in the past 24 hours. Patient denies travel outside of [place] in the past 14 days. Patient denies any contact with someone who has a confirmed diagnosis of or is under investigation for COVID-19 in the past 14 days. Patient has been tested negative for COVID- 19.REHAB PLAN: - Physical Therapy Decreased range of motion - to improve, our physical therapists will perform initial evaluation of pt 's status upon admission and devise an individualized program for increasing patient's Range of Motio n. Need for home safety evaluation - to improve, our physical therapists will perform initial evaluation of pt's status upon admission and devise an individualized program for Home Evaluation Need in caregiver upon discharge - to improve, our physical therapists will perform initial evaluatio n of pt's status upon admission and devise an individualized program for Caregiver Training New precaution - to improve, our physical therapists will perform initial evaluation of pt's status u cresencio admission and devise an individualized program for Patient precaution education Poor balance - to improve, our physical therapists will perform initial evaluation of pt's status upo n admission and devise an individualized program for Balance Training Poor endurance - to improve, our physical therapists will perform initial evaluation of pt's status u cresencio admission and devise an individualized program for Endurance Training Achieving independence - to improve, our physical therapists will perform initial evaluation of pt's status upon admission and devise an individualized program for Community Reintegration Activities - Occupational Therapy Need for care aide - to improve, our occupation therapists will perform initial evaluation of pt's s tatus upon admission and devise an individualized program for Caregiver Training MEDICAL PLAN: - Anterior Hip Precaution No abduction No active extension No adduction across midline No external rotation No hip flexion >90 degrees No internal rotation - Diet - Liquid Texture Start Regular - Tube Feed Start N/A - Diet Type Start Regular - Posterior Hip Precaution No adduction across midline No external rotation No hip flexion >90 degrees No internal rotation No wheel chair propulsion - Weight Bearing Precaution WBAT right LE - Skin care per protocol - Other See attached MAR (Medication Administration Record) - Diet - Solid Texture Regular - Shower shower DISCHARGE PLAN: - Estimated Length of Stay (days) 14. - Consensus on plan Discharge plan has been discussed with primary caregiver. Patient/Family is in agreement with the ellen n. Primary caregiver is in agreement with the plan. - Patient/Family Goals Return home independently. - Planned Living Setting Upon Discharge Home, to live with Family/Relatives. Transitional Living. 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
--- NOTE | 2019-12-16 17:06 | PAPE ---
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 Gopal Merrill M.D. ADMISSION DIAGNOSIS: RIGHT HIP FRACTURE ONSET DATE 12/11/2019 POST-ADMISSION FUNCTIONAL/MEDICAL STATUS: - Bladder Same accident frequency: Ind - No accidents in the past 7 days - Bowel Same accident frequency: Ind - No accidents in the past 7 days - Walking Same score based on distance walked: 0(N/A) Same score based on distance walked: 1(<=50ft) - Wheelchair Same score based on distance traveled: 0(N/A) STATUS CHANGE EVALUATION: No change in Functional or Medical Status is identified compared with Pre-Admission screening. PATIENT NEEDS CLOSE MEDICAL SUPERVISION BY A REHABILITATION PHYSICIAN FOR: Coordination of Treatment Team PATIENT REQUIRES 24X7 REHAB NURSING FOR MEDICAL AND FUNCTIONAL MGT. OF THE FOLLOWING DEFICITS: Disease Management Medication Management Patient/Family Education Providing Safe Environment PATIENT REQUIRES INTENSIVE, COORDINATED INTERDISCIPLINARY APPROACH TO REHAB: Arranging Home Equipment/Services Discharge Planning Family Intervention/Training Final Block Press Operator/Case Management LIST OF IDENTIFIED AND POTENTIAL PROBLEMS: Alteration in leisure activities Bladder, Incontinence Bowel, Incontinence Infection, Actual or Potential Mobility Impaired Pain, Alteration in Comfort Self Care Deficit Skin Integrity, Actual or Potential Urinary Tract Infection (UTI), Actual or Potential PATIENT COULD BE AT RISK FOR COMPLICATIONS FROM ADVERSE MEDICAL CONDITIONS DUE TO HIS/HER COMORBIDITI ES AND THE RIGORS OF THE INTENSIVE REHABILLITATION PROGRAM. METHODS OR INTERVENTIONS TO AVOID COMPLIC ATIONS INCLUDE: - Infection Clinical staff to assess and manage the signs and symptoms of infection including fever, redness, war mth, etc. - Urinary Tract Infection - Falls Patient will be evaluated for Fall Precautions and will be placed on Fall Precautions as indicated pe r protocol. - Skin Breakdown Nursing will assess skin daily using assessment tool and will place on Skin Breakdown Precautions as indicated per protocol. - Pain Clinical staff may employ non-medication methods such as massage, distraction, decrease stimulus, etc . as needed. Clinical staff will assess patient's pain level every shift per protocol to assess and e nsure pain management effectiveness. Medications will be given and the pain level re-assessed. PRELIMINARY PLAN OF CARE: - Physical Therapy Patient needs Physical Therapy for a daily minimum of 1.5 hours at least 5 out of 7 days, to improve: Mobility, Strengthening, Transfers, Stretching, ROM, Endurance, Ability to manage stairs, Gait, and Balance. - Speech Therapy Patient needs Speech Therapy for a daily minimum of 0.5 hours at least 5 out of 7 days, to improve: S wallowing, Cognition, Language Skills, and Compensatory Strategies. - Rehabilitation Nursing Patient requires 24x7 Rehabilitation Nursing for: Pain Issues, Identifying and preventing risk factor s, Monitoring and reporting current medical conditions, Assisting with ambulation and transfer, Rodriguez ting with all ADL-s, Teaching patients about disease process and medications, Family teaching, Provid ing safe environment, Bowel and Bladder Issues, Skin Integrity, and Medication Management. Patient needs Final Block Press Operator and/or Case Management for: Discharge Planning, Arranging Home Equipmen t or Services, and Family Interventions. - Dietary and Nutrition Services Patient needs Dietary and Nutrition Services for: Adequate Nutrition, Nutritional Supplements, and Nu tritional Education. - Occupational Therapy Patient needs Occupational Therapy for a daily minimum of 1.5 hours at least 5 out of 7 days, to impr ove Activities of Daily Living, including: Eating, Grooming, Bathing, Dressing, Toileting, Toilet Tra nsfers, Community Reintegration, Higher functional activities, Adaptive Equipment, Splinting, Househo ld Tasks, and Other activities as determined. QI SCORES: - Self-Care A. Eating 03-Partial/moderate assistance B. Oral hygiene 03-Partial/moderate assistance C. Toileting hygiene 03-Partial/moderate assistance E. Shower/bathe self 03-Partial/moderate assistance F. Upper body dressing 03-Partial/moderate assistance G. Lower body dressing 03-Partial/moderate assistance H. Putting on/taking off footwear 88-Not attempted due to medical condition or safety concerns - Mobility A. Roll left and right 03-Partial/moderate assistance B. Sit to lying 03-Partial/moderate assistance C. Lying to sitting on side of bed 03-Partial/moderate assistance D. Sit to stand 03-Partial/moderate assistance E. Chair/esf-de-vowki transfer 03-Partial/moderate assistance F. Toilet transfer 03-Partial/moderate assistance G. Car transfer 88-Not attempted due to medical condition or safety concerns I. Walk 10 feet 88-Not attempted due to medical condition or safety concerns J. Walk 50 feet with two turns 88-Not attempted due to medical condition or safety concerns K. Walk 150 feet 88-Not attempted due to medical condition or safety concerns L. Walking 10 feet on uneven surfaces 88-Not attempted due to medical condition or safety concerns M. 1 step (curb) 88-Not attempted due to medical condition or safety concerns N. 4 steps 88-Not attempted due to medical condition or safety concerns O. 12 steps 88-Not attempted due to medical condition or safety concerns P. Picking up object 88-Not attempted due to medical condition or safety concerns R. Wheel 50 feet with two turns 88-Not attempted due to medical condition or safety concerns S. Wheel 150 feet 88-Not attempted due to medical condition or safety concerns - Bladder and Bowel Bladder continence Bowel continence - Endurance Good - Balance Good - Safety Awareness Good POTENTIAL FUNCTIONAL GOALS FOR PATIENT TO ACHIEVE BY DISCHARGE: - Safety Precaution Patient will remain free from falls or injury at time of discharge. - Bed Mobility Patient will perform bed mobility at 4-Abril level of assistance. - Transfers Patient will complete transfers from bed to chair at 4-Abril level of assistance. - Mobility Patient will ambulate 150 ft with 4-Abril level of assistance with RW. PATIENT REHAB POTENTIAL Roxann RUBIN is able and expected to receive 3 hours of individualized therapy daily on at least 5 of every 7 days Roxann RUBIN's prognosis for significant practical improvement within a reasonable period of time a ppears Good Expected level of measurable improvement will be of a practical value to Roxann RUBIN's functional capacity or adaptations to impairments Has a viable Discharge Plan Medically appropriate; condition is sufficiently stable to participate in intensive rehab program DISCHARGE PLAN: - Estimated Length of Stay (days) 14. - Consensus on plan Discharge plan has been discussed with primary caregiver. Patient/Family is in agreement with the ellen n. Primary caregiver is in agreement with the plan. - Patient/Family Goals Return home independently. - Planned Living Setting Upon Discharge Home, to live with Family/Relatives. Transitional Living. CONCLUSION ON REHABILITATION NECESSITY: I have evaluated patient's pre-admission functional status and, comparing it to the patient's post-ad mission functional status now, I conclude that the pre-admission assessment was accurate. Patient's c ondition on admission supports the medical necessity of admission to IRF. It is safe to proceed with patient's therapy program. 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
[2019-12-16] MEDS: DOCUSATE NA/SENNA CONC 1 TAB PO PRN (20:18)
[2019-12-16] MEDS: CRANBERRY FRUIT EXTRACT 200 MG CAP PO SCH (20:18)
[2019-12-16] MEDS: ATORVASTATIN 80 MG TAB PO SCH (20:18)
[2019-12-17] MEDS: LEVOTHYROXINE SOD 0.05 MG TABLET PO SCH (06:42)
[2019-12-17] MEDS: HYDROCODONE/APAP 5/325 MG TAB PO PRN ×2 (07:47→12:50)
[2019-12-17] MEDS: FINASTERIDE 5 MG TAB PO SCH (07:48)
[2019-12-17] MEDS: CRANBERRY FRUIT EXTRACT 200 MG CAP PO SCH ×2 (07:48→20:01)
[2019-12-17] MEDS: CLOPIDOGREL 75 MG TABLET PO SCH (07:49)
[2019-12-17] MEDS: VALSARTAN 80 MG TAB PO SCH (07:49)
[2019-12-17] MEDS: DOCUSATE NA 100 MG CAP PO SCH ×2 (07:49→20:02)
[2019-12-17] MEDS: INSULIN GLARGINE 100 UNITS/ML SQ SCH ×2 (07:50→20:02)
[2019-12-17] MEDS: INSULIN -REGULAR HUMAN 50 UNIT/0.5 ML ML SQ SCH ×4 (07:51→20:05)
[2019-12-17] MEDS: RIVAROXABAN 10 MG TABLET PO SCH (11:49)
--- NOTE | 2019-12-17 18:29 | R.PN ---
PROGRESS NOTES ENCOUNTER DATE AND TIME: 12/17/2019 18:19 (HOME CARE SCHEDULER) NAME KRYSTIAN RUBIN DATE OF : 1935 DATE OF ADMISSION: 12/15/2019 12:43 (HOME CARE SCHEDULER) RIGHT HIP FRACTURECHIEF COMPLAINT: Right hip fracture SUBJECTIVE: Pt denied any depression. Pt denied any Shortness of Breath. WBC 6.0, Hgb 9.0, Plt 119, glu 208 to 252, UA esterase 3+, WBC TNTC. Ambulated 420' with contact guard assistance using a rolling walker. Self-propelled a wheelchair 250' with independence. VITAL SIGNS Temperature: 98.1 F 114/63SBP/DBP: 114/63 Pulse: 80 Resp: 16 MEDICATION ALLERGIES: No Known Drug Allergies (NKDA) ENVIRONMENTAL ALLERGIES: - Substance Allergies None Known - Other Allergies None Known NURSING: - Shower allowing shower - Skin care per protocol PRECAUTIONS: - Anterior Hip Precaution No abduction No active extension No adduction across midline No external rotation No hip flexion >90 degrees No internal rotation - Posterior Hip Precaution No adduction across midline No external rotation No hip flexion >90 degrees No internal rotation No wheel chair propulsion - Weight Bearing Precaution WBAT right LE ACTIVITIES OOB only with supervision THERAPIES: - Dietary and Nutrition Adequate Nutrition. Nutritional Education. Nutritional Supplements. PHYSICAL EXAM - Gen Alert and awake Lying in bed No apparent distress Oriented to: person, time, and place - Skin No breakdown Normacephalic - Eyes No abnormalities - ENMT No abnormalities - Neck No abnormalities - CVS RRR - Chest No abnormalities - Resp Clear to auscultation - Abd Soft - GI + bowel sounds Deferred - No abnormalities - Ext Right hip surgical site has good hemostasis. - MSK 4+/5 weakness in right lower extremity - Neuro 4/5 strength right lower extremity. - Psych No abnormalities ASSESSMENT: Pt. is a 84 yo Right-handed male of unknown race.On 12/11/2019 he was admitted to [facility] with diagnosis RIGHT HIP FRACTURE.His impairment category is Orthopaedic Disorders 08 - Unilate ral Hip Fracture (08.11).Pre-morbidly, Pt. was independent/mod-I in Safety Awareness, Self-Care, and Communication; and he had good Sphincter Control, Transfers Control, and Locomotion.Currently, he has deficits of Endurance, Safety Awareness, Locomotion, Balance, and Sphincter Control.Pt. is now refer red to [facility] for acute in-patient rehabilitation in order to maximize john solano's functional independence in activities of daily living, strength, ROM, and mobility.- Rehab Tutu l Patient has realistic goal of being discharged at assistance level 7-Ind to reside at Home with Fami ly/Relatives. MDM/PLAN: - Physical Therapy Decreased range of motion - to improve, our physical therapists will perform initial evaluation of p t's status upon admission and devise an individualized program for increasing patient's Range of Andrey on. Need for home safety evaluation - to improve, our physical therapists will perform initial evaluatio n of pt's status upon admission and devise an individualized program for Home Evaluation Need in caregiver upon discharge - to improve, our physical therapists will perform initial evaluati on of pt's status upon admission and devise an individualized program for Caregiver Training New precaution - to improve, our physical therapists will perform initial evaluation of pt's status upon admission and devise an individualized program for Patient precaution education Poor balance - to improve, our physical therapists will perform initial evaluation of pt's status up on admission and devise an individualized program for Balance Training Poor endurance - to improve, our physical therapists will perform initial evaluation of pt's status upon admission and devise an individualized program for Endurance Training Achieving independence - to improve, our physical therapists will perform initial evaluation of pt's status upon admission and devise an individualized program for Community Reintegration Activities - Occupational Therapy Need for physician assistant primary care - to improve, our occupation therapists will perform initial evaluation of pt's status upon admission and devise an individualized program for Caregiver Training - Other See attached MAR (Medication Administration Record) - Anterior Hip Precaution No abduction No active extension No adduction across midline No external rotation No hip flexion >90 degrees No internal rotation - Diet - Liquid Texture Continue Regular - Tube Feed Continue N/A - Diet Type Continue Regular - Posterior Hip Precaution No adduction across midline No external rotation No hip flexion >90 degrees No internal rotation No wheel chair propulsion - Weight Bearing Precaution WBAT right LE - Skin care per protocol - Diet - Solid Texture Continue Regular - Shower allowing shower FUNCTIONAL STATUS: UPDATED AT WEEKLY TEAM CONFERENCE - Bladder Same accident frequency: 7-Ind - No accidents in the past 7 days - Bowel Same accident frequency: 7-Ind - No accidents in the past 7 days - Walking Same score based on distance walked: 0(N/A) Same score based on distance walked: 1(<=50ft) - Wheelchair Same score based on distance traveled: 0(N/A) FUNCTIONAL STATUS: - Self-Care A. Eating Shashi B. Grooming Shashi C. Bathing sup D. Dressing - Upper sup E. Dressing - Lower Abril F. Toileting Abril - Sphincter Control G. Bladder control sup H. Bowel control sup - Transfers Control I. Bed/Chair/Wheelchair sup J. Toilet sup K. Tub/Shower Abril - Locomotion L. Walk/Wheelchair (B) Abril M. Stairs modA - Communication N. Comprehension (B) Shashi O. Expression (B) Shashi - Social Cognition P. Social Interaction Shashi Q. Problem Solving Shashi R. Memory Shashi - Endurance Fair - Balance Fair - Safety Awareness Fair QI SCORES: - Self-Care A. Eating 03-Partial/moderate assistance B. Oral hygiene 03-Partial/moderate assistance C. Toileting hygiene 03-Partial/moderate assistance E. Shower/bathe self 03-Partial/moderate assistance F. Upper body dressing 03-Partial/moderate assistance G. Lower body dressing 03-Partial/moderate assistance H. Putting on/taking off footwear 88-Not attempted due to medical condition or safety concerns - Mobility A. Roll left and right 03-Partial/moderate assistance B. Sit to lying 03-Partial/moderate assistance C. Lying to sitting on side of bed 03-Partial/moderate assistance D. Sit to stand 03-Partial/moderate assistance E. Chair/bpj-yt-ukiyk transfer 03-Partial/moderate assistance F. Toilet transfer 03-Partial/moderate assistance G. Car transfer 88-Not attempted due to medical condition or safety concerns I. Walk 10 feet 88-Not attempted due to medical condition or safety concerns J. Walk 50 feet with two turns 88-Not attempted due to medical condition or safety concerns K. Walk 150 feet 88-Not attempted due to medical condition or safety concerns L. Walking 10 feet on uneven surfaces 88-Not attempted due to medical condition or safety concerns M. 1 step (curb) 88-Not attempted due to medical condition or safety concerns N. 4 steps 88-Not attempted due to medical condition or safety concerns O. 12 steps 88-Not attempted due to medical condition or safety concerns P. Picking up object 88-Not attempted due to medical condition or safety concerns R. Wheel 50 feet with two turns 88-Not attempted due to medical condition or safety concerns S. Wheel 150 feet 88-Not attempted due to medical condition or safety concerns - Bladder and Bowel Bladder continence Bowel continence - Endurance Good - Balance Good - Safety Awareness Good CURRENT FUNC. DEFICITS: Self-Care and Mobility SIGNATURE PANEL: (HOME CARE SCHEDULER)
[2019-12-17] MEDS: ATORVASTATIN 80 MG TAB PO SCH (20:01)
[2019-12-17] MEDS: SMZ./TMP. 800/160 MG TABLET PO SCH (20:01)
[2019-12-17] MEDS: DOCUSATE NA/SENNA CONC 1 TAB PO PRN (20:02)
--- NOTE | 2019-12-17 21:36 | P.PN ---
Subjective Date of Service: 12/17/19 Chief Complaint: DOING GOOD. SP HIP FRACTURE,HERE FOR PT. STABLE. NO CHANGES. FEELS GOOD. Physical Examination - Vital Signs Temperature: 98.6 F Blood Pressure: 114/58 Pulse: 83 Respirations: 16 Pulse Ox (%): 100 - Studies Microbiology Data (last 24 hrs): 12/15/19 16:30 Clean Catch Urine [place] Count - Final >100,000 CFU/ML. 12/15/19 16:30 Clean Catch Urine - Final Escherichia Coli Medications List Reviewed: Yes Assessment And Plan - Current Problems (Diagnosis) (1) Closed right hip fracture Current Visit: No Status: Acute Plan: CONT PT . FALL PREC. Qualifiers: Encounter type: subsequent encounter (2) Diabetes type 2, controlled Onset Date: 03/05/17 Current Visit: No Status: Chronic Plan: FU ON LDL AND A1C DONE.
[2019-12-18 06:08] LABS: Absolute Lymphocytes (CBC) 0.8 K/uL (0.7-4.9); Basophils % 0.7 % (0-1.3); Hematocrit 23.4 % (39.6-49.0); Lymphocytes % 13.9 % (15.3-44.8); MPV 9.3 fL (7.6-11.3); RBC Red Blood Cell Count 2.71 M/uL (4.33-5.43)
[2019-12-18 06:50] LABS: Albumin 2.6 g/dL (3.4-5.0); BUN Blood Urea Nitrogen 13 mg/dL (7-18); Bicarbonate 30 mmol/L (21-32); Glucose Level 200 mg/dL (74-106); Potassium 4.7 mmol/L (3.5-5.1); Prealbumin 8.6 mg/dL (20-40); Sodium Level 139 mmol/L (136-145)
[2019-12-18] MEDS: FINASTERIDE 5 MG TAB PO SCH (07:30)
[2019-12-18] MEDS: VALSARTAN 80 MG TAB PO SCH (07:30)
[2019-12-18] MEDS: LEVOTHYROXINE SOD 0.05 MG TABLET PO SCH (07:30)
[2019-12-18] MEDS: DOCUSATE NA 100 MG CAP PO SCH ×2 (07:30→19:50)
[2019-12-18] MEDS: INSULIN GLARGINE 100 UNITS/ML SQ SCH ×2 (07:31→19:50)
[2019-12-18] MEDS: SMZ./TMP. 800/160 MG TABLET PO SCH ×2 (07:31→19:50)
[2019-12-18] MEDS: CLOPIDOGREL 75 MG TABLET PO SCH (07:31)
[2019-12-18] MEDS: CRANBERRY FRUIT EXTRACT 200 MG CAP PO SCH ×2 (07:31→19:50)
[2019-12-18] MEDS: INSULIN -REGULAR HUMAN 50 UNIT/0.5 ML ML SQ SCH ×4 (07:32→19:51)
--- NOTE | 2019-12-18 17:45 | R.PN ---
PROGRESS NOTES ENCOUNTER DATE AND TIME: 12/18/2019 17:39 (POT PUSHER) NAME KRYSTIAN RUBIN DATE OF : 1935 DATE OF ADMISSION: 12/15/2019 12:43 (POT PUSHER) RIGHT HIP FRACTURECHIEF COMPLAINT: Right hip fracture SUBJECTIVE: Pt denied any depression. Pt denied any Shortness of Breath. WBC 5.6, Hgb 8.2, Plt 144, glu 183 to 285, prealbumin 8.6. Xarelto was D/Emeka. He is using SCDs. UA e sterase 3+, WBC TNTC. Ambulated 700' with contact guard assistance using a rolling walker. VITAL SIGNS Temperature: 98.4 F SBP/DBP: 118/67 Pulse: 80 Resp: 16 MEDICATION ALLERGIES: No Known Drug Allergies (NKDA) ENVIRONMENTAL ALLERGIES: - Substance Allergies None Known - Other Allergies None Known NURSING: - Shower allowing shower - Skin care per protocol PRECAUTIONS: - Anterior Hip Precaution No abduction No active extension No adduction across midline No external rotation No hip flexion >90 degrees No internal rotation - Posterior Hip Precaution No adduction across midline No external rotation No hip flexion >90 degrees No internal rotation No wheel chair propulsion - Weight Bearing Precaution WBAT right LE ACTIVITIES OOB only with supervision THERAPIES: - Dietary and Nutrition Adequate Nutrition. Nutritional Education. Nutritional Supplements. PHYSICAL EXAM - Gen Alert and awake Lying in bed No apparent distress Oriented to: person, time, and place - Skin No breakdown Normacephalic - Eyes No abnormalities - ENMT No abnormalities - Neck No abnormalities - CVS RRR - Chest No abnormalities - Resp Clear to auscultation - Abd Soft - GI + bowel sounds Deferred - No abnormalities - Ext Right hip surgical site has good hemostasis. - MSK 4+/5 weakness in right lower extremity - Neuro 4/5 strength right lower extremity. - Psych No abnormalities ASSESSMENT: Pt. is a 84 yo Right-handed male of unknown race.On 12/11/2019 he was admitted to [facility] with diagnosis RIGHT HIP FRACTURE.His impairment category is Orthopaedic Disorders 08 - Unilate ral Hip Fracture (08.11).Pre-morbidly, Pt. was independent/mod-I in Safety Awareness, Self-Care, and Communication; and he had good Sphincter Control, Transfers Control, and Locomotion.Currently, he has deficits of Endurance, Safety Awareness, Locomotion, Balance, and Sphincter Control.Pt. is now refer red to [facility] for acute in-patient rehabilitation in order to maximize pat ient's functional independence in activities of daily living, strength, ROM, and mobility.- Rehab Tutu l Patient has realistic goal of being discharged at assistance level 7-Ind to reside at Home with Fami ly/Relatives. MDM/PLAN: - Physical Therapy Decreased range of motion - to improve, our physical therapists will perform initial evaluation of p t's status upon admission and devise an individualized program for increasing patient's Range of Andrey on. Need for home safety evaluation - to improve, our physical therapists will perform initial evaluatio n of pt's status upon admission and devise an individualized program for Home Evaluation Need in caregiver upon discharge - to improve, our physical therapists will perform initial evaluati on of pt's status upon admission and devise an individualized program for Caregiver Training New precaution - to improve, our physical therapists will perform initial evaluation of pt's status upon admission and devise an individualized program for Patient precaution education Poor balance - to improve, our physical therapists will perform initial evaluation of pt's status up on admission and devise an individualized program for Balance Training Poor endurance - to improve, our physical therapists will perform initial evaluation of pt's status upon admission and devise an individualized program for Endurance Training Achieving independence - to improve, our physical therapists will perform initial evaluation of pt's status upon admission and devise an individualized program for Community Reintegration Activities - Occupational Therapy Need for caregivers non medical - to improve, our occupation therapists will perform initial evaluation of pt's status upon admission and devise an individualized program for Caregiver Training - Other See attached MAR (Medication Administration Record) - Anterior Hip Precaution No abduction No active extension No adduction across midline No external rotation No hip flexion >90 degrees No internal rotation - Diet - Liquid Texture Continue Regular - Tube Feed Continue N/A - Diet Type Continue Regular - Posterior Hip Precaution No adduction across midline No external rotation No hip flexion >90 degrees No internal rotation No wheel chair propulsion - Weight Bearing Precaution WBAT right LE - Skin care per protocol - Diet - Solid Texture Continue Regular - Shower allowing shower FUNCTIONAL STATUS: UPDATED AT WEEKLY TEAM CONFERENCE - Bladder Same accident frequency: 7-Ind - No accidents in the past 7 days - Bowel Same accident frequency: 7-Ind - No accidents in the past 7 days - Walking Same score based on distance walked: 0(N/A) Same score based on distance walked: 1(<=50ft) - Wheelchair Same score based on distance traveled: 0(N/A) FUNCTIONAL STATUS: - Self-Care A. Eating Shashi B. Grooming Shashi C. Bathing sup D. Dressing - Upper sup E. Dressing - Lower Abril F. Toileting Abril - Sphincter Control G. Bladder control sup H. Bowel control sup - Transfers Control I. Bed/Chair/Wheelchair sup J. Toilet sup K. Tub/Shower Abril - Locomotion L. Walk/Wheelchair (B) Abril M. Stairs modA - Communication N. Comprehension (B) Shashi O. Expression (B) Shashi - Social Cognition P. Social Interaction Shashi Q. Problem Solving Shashi R. Memory Shashi - Endurance Fair - Balance Fair - Safety Awareness Fair QI SCORES: - Self-Care A. Eating 03-Partial/moderate assistance B. Oral hygiene 03-Partial/moderate assistance C. Toileting hygiene 03-Partial/moderate assistance E. Shower/bathe self 03-Partial/moderate assistance F. Upper body dressing 03-Partial/moderate assistance G. Lower body dressing 03-Partial/moderate assistance H. Putting on/taking off footwear 88-Not attempted due to medical condition or safety concerns - Mobility A. Roll left and right 03-Partial/moderate assistance B. Sit to lying 03-Partial/moderate assistance C. Lying to sitting on side of bed 03-Partial/moderate assistance D. Sit to stand 03-Partial/moderate assistance E. Chair/njr-nd-uofyz transfer 03-Partial/moderate assistance F. Toilet transfer 03-Partial/moderate assistance G. Car transfer 88-Not attempted due to medical condition or safety concerns I. Walk 10 feet 88-Not attempted due to medical condition or safety concerns J. Walk 50 feet with two turns 88-Not attempted due to medical condition or safety concerns K. Walk 150 feet 88-Not attempted due to medical condition or safety concerns L. Walking 10 feet on uneven surfaces 88-Not attempted due to medical condition or safety concerns M. 1 step (curb) 88-Not attempted due to medical condition or safety concerns N. 4 steps 88-Not attempted due to medical condition or safety concerns O. 12 steps 88-Not attempted due to medical condition or safety concerns P. Picking up object 88-Not attempted due to medical condition or safety concerns R. Wheel 50 feet with two turns 88-Not attempted due to medical condition or safety concerns S. Wheel 150 feet 88-Not attempted due to medical condition or safety concerns - Bladder and Bowel Bladder continence Bowel continence - Endurance Good - Balance Good - Safety Awareness Good CURRENT FUNC. DEFICITS: Self-Care and Mobility SIGNATURE PANEL: (POT PUSHER)
[2019-12-18] MEDS: ATORVASTATIN 80 MG TAB PO SCH (19:50)
--- NOTE | 2019-12-18 21:06 | P.PN ---
Subjective Date of Service: 12/18/19 Chief Complaint: DOING GOOD. Subjective: Improving SP HIP FRACTURE,HERE FOR PT. STABLE. NO CHANGES. FEELS GOOD. NO CHANGES. HAS NO UTI SYMPTOMS. HAS NO FEVER. Review of Systems 10-point ROS is otherwise unremarkable Physical Examination - Vital Signs Temperature: 98.4 F Blood Pressure: 118/67 Pulse: 80 Respirations: 18 Pulse Ox (%): 96 - Physical Exam General: Mild distress HEENT: Atraumatic, PERRLA, EOMI Neck: Supple, JVD not distended Respiratory: Clear to auscultation bilaterally, Normal air movement Cardiovascular: Regular rate/rhythm, Normal S1 S2 Gastrointestinal: Normal bowel sounds, No tenderness Musculoskeletal: No tenderness Integumentary: No rashes Neurological: Normal speech, Normal tone, Normal affect Lymphatics: No axilla or inguinal lymphadenopathy - Studies Laboratory Data (last 24 hrs) 12/18/19 05:37: Sodium 139, Potassium 4.7, BUN 13, Creatinine 0.80, Glucose 200 H, Magnesium 2.0 12/18/19 05:37: WBC 5.6, Hgb 8.2 L, Hct 23.4 L, Plt Count 144 L D Medications List Reviewed: Yes Assessment And Plan - Current Problems (Diagnosis) (1) Closed right hip fracture Current Visit: No Status: Acute Plan: CONT PT . FALL PREC. Qualifiers: Encounter type: subsequent encounter (2) Diabetes type 2, controlled Onset Date: 03/05/17 Current Visit: No Status: Chronic Plan: FU ON LDL AND A1C DONE. (3) Anemia Current Visit: Yes Status: Acute Plan: HOLD AC WILL DO LAB EVERY OTHER DAY. NO ACUTE BLEEDING HE CAN SEE HIS GI DOCTOR [facility] DUENAS.
[2019-12-19 06:17] LABS: RBC Red Blood Cell Count 2.56 M/uL (4.33-5.43)
[2019-12-19 06:18] LABS: Basophils % 0.7 % (0-1.3); Hematocrit 21.7 % (39.6-49.0); Lymphocytes % 17.7 % (15.3-44.8); MPV 8.5 fL (7.6-11.3); RBC Red Blood Cell Count 2.54 M/uL (4.33-5.43)
[2019-12-19 06:27] LABS: BUN Blood Urea Nitrogen 12 mg/dL (7-18); Bicarbonate 29 mmol/L (21-32); Glucose Level 201 mg/dL (74-106); Potassium 3.8 mmol/L (3.5-5.1); Sodium Level 138 mmol/L (136-145)
[2019-12-19] MEDS: LEVOTHYROXINE SOD 0.05 MG TABLET PO SCH (06:35)
[2019-12-19 06:52] LABS: Ferritin 169.9 ng/mL (26-388)
[2019-12-19] MEDS: VALSARTAN 80 MG TAB PO SCH (08:00)
[2019-12-19] MEDS: TRAMADOL HCL 50 MG TAB PO PRN ×2 (08:03→13:48)
[2019-12-19] MEDS: INSULIN GLARGINE 100 UNITS/ML SQ SCH ×2 (08:04→20:34)
[2019-12-19] MEDS: INSULIN -REGULAR HUMAN 50 UNIT/0.5 ML ML SQ SCH ×4 (08:04→20:34)
[2019-12-19] MEDS: CRANBERRY FRUIT EXTRACT 200 MG CAP PO SCH ×2 (08:05→20:33)
[2019-12-19] MEDS: FINASTERIDE 5 MG TAB PO SCH (08:06)
[2019-12-19] MEDS: CLOPIDOGREL 75 MG TABLET PO SCH (08:06)
[2019-12-19] MEDS: DOCUSATE NA 100 MG CAP PO SCH ×2 (08:06→20:33)
[2019-12-19 08:38] LABS: Urine Appearance CLEAR; Urine Bilirubin NEGATIVE (NEG); Urine Blood NEGATIVE (NEG); Urine Color YELLOW; Urine Glucose NEGATIVE (NEG); Urine Protein NEGATIVE (NEG); Urine Specific Gravity 1.015 (1.005-1.030); Urine pH 7.5 (5.0-7.0)
[2019-12-19 09:22] LABS: Urine Bacteria <20 /HPF (NONE SEEN); Urine Culture Reflex Order REFLEXED; Urine RBC <5 /HPF (NONE SEEN)
--- NOTE | 2019-12-19 09:39 | P.RH.PN ---
Estimated Length of Stay: 16 Expected Discharge Date: 12/30/19 Discharge Disposition Plan: Home Family Support: Yes Longterm Goal: Mobility, Transfers, Self Care Vital Signs: Last Vital Signs Temp 98.5 F 12/19/19 07:52 Pulse 78 12/19/19 08:00 Resp 16 12/19/19 09:01 BP 113/62 12/19/19 08:00 Pulse Ox 99 12/19/19 09:01 Laboratory: Laboratory Last Values WBC 5.5 K/uL (4.3-10.9) 12/19/19 06:02 RBC 2.54 M/uL (4.33-5.43) L 12/19/19 06:02 RBC 2.56 M/uL (4.33-5.43) L 12/19/19 06:02 Hgb 7.9 g/dL (13.6-17.9) L* 12/19/19 06:02 Hct 21.7 % (39.6-49.0) L 12/19/19 06:02 MCV 85.6 fL (80-100) 12/19/19 06:02 MCH 31.2 pg (27.0-35.0) 12/19/19 06:02 MCHC 36.4 g/dL (32.0-36.0) H 12/19/19 06:02 RDW 14.4 % (12.1-15.2) 12/19/19 06:02 Plt Count 151 K/uL (152-406) L 12/19/19 06:02 MPV 8.5 fL (7.6-11.3) 12/19/19 06:02 Neutrophils % 71.6 % (41.7-73.7) 12/19/19 06:02 Lymphocytes % 17.7 % (15.3-44.8) 12/19/19 06:02 Monocytes % 7.8 % (3.3-12.3) 12/19/19 06:02 Eosinophils % 2.2 % (0-4.4) 12/19/19 06:02 Basophils % 0.7 % (0-1.3) 12/19/19 06:02 Absolute Neutrophils 4.0 K/uL (1.8-8.0) 12/19/19 06:02 Segmented Neutrophils 88 % (40-80) H 12/16/19 05:43 Absolute Lymphocytes 1.0 K/uL (0.7-4.9) 12/19/19 06:02 Lymphocytes 7 % (15-42) L 12/16/19 05:43 Monocytes 3 % (0-10) 12/16/19 05:43 Absolute Monocytes 0.4 K/uL (0.1-1.3) 12/19/19 06:02 Eosinophils 1 % (0-3) 12/16/19 05:43 Absolute Eosinophils 0.1 K/uL (0-0.5) 12/19/19 06:02 Absolute Basophils 0.0 K/uL (0-0.5) 12/19/19 06:02 Metamyelocytes 1 % (0-0) H 12/16/19 05:43 Platelet Estimate Adeq 12/16/19 05:43 Clumped Platelets Few 12/16/19 05:43 Morphology Comment Not seen (NOT SEEN) 12/16/19 05:43 Absolute Retic 0.08 M/uL (0.02-0.11) 12/19/19 06:02 Percent Retic 3.10 % (0.4-2.05) H 12/19/19 06:02 Sodium 138 mmol/L (136-145) 12/19/19 06:02 Potassium 3.8 mmol/L (3.5-5.1) 12/19/19 06:02 Chloride 104 mmol/L (98-107) 12/19/19 06:02 Carbon Dioxide 29 mmol/L (21-32) 12/19/19 06:02 BUN 12 mg/dL (7-18) 12/19/19 06:02 Creatinine 0.79 mg/dL (0.55-1.3) 12/19/19 06:02 Estimated GFR > 90 mL/min (=/>90) 12/19/19 06:02 Glucose 201 mg/dL (74-106) H 12/19/19 06:02 POC Glucose 194 mg/dL (65-120) H 12/19/19 07:02 Calcium 8.3 mg/dL (8.5-10.1) L 12/19/19 06:02 Magnesium 2.0 mg/dL (1.8-2.4) 12/18/19 05:37 Iron 36.0 ug/dL (65-175) L 12/19/19 06:02 TIBC 199 ug/dL (250-460) L 12/19/19 06:02 Transferrin 142 mg/dL (200-360) L 12/19/19 06:02 Transferrin % Sat 18.1 % (20.0-50.0) L 12/19/19 06:02 Ferritin 169.9 ng/mL (26-388) 12/19/19 06:02 Albumin 2.6 g/dL (3.4-5.0) L 12/18/19 05:37 Prealbumin 8.6 mg/dL (20-40) L 12/18/19 05:37 Vitamin B12 847 pg/mL (193-986) 12/19/19 06:02 Urine Color Yellow 12/19/19 07:30 Urine Appearance Clear 12/19/19 07:30 Urine pH 7.5 (5.0-7.0) H 12/19/19 07:30 Ur Specific [place] 1.015 (1.005-1.030) 12/19/19 07:30 Glucose (UA)(Auto) Negative (NEG) 12/19/19 07:30 Urine Ketones Negative (NEG) 12/19/19 07:30 Urine Blood Negative (NEG) 12/19/19 07:30 Urine Nitrite Negative (NEG) 12/19/19 07:30 Urine Bilirubin Negative (NEG) 12/19/19 07:30 Urine Urobilinogen 4.0 mg/dL (0.2-1.0) H 12/19/19 07:30 Ur Leukocyte Esterase 3+ (NEG) H 12/19/19 07:30 Urine RBC <5 /HPF (NONE SEEN) 12/19/19 07:30 Urine WBC >50 /HPF (<5) H 12/19/19 07:30 Ur Squamous Epith Cells 10-20 /HPF (NONE SEEN) H 12/19/19 07:30 Urine Bacteria <20 /HPF (NONE SEEN) 12/19/19 07:30 Hyaline Casts None seen /LPF (NONE SEEN) 12/19/19 07:30 Urine Mucus 2+ /HPF (NONE SEEN) 12/15/19 16:30 Urine Culture Reflexed Reflexed 12/19/19 07:30 Urine Total Protein Negative (NEG) 12/19/19 07:30 ABO/Rh A NEGATIVE 12/19/19 07:52 Solid Phase Ab Screen Negative 12/19/19 07:52 Crossmatch See Detail 12/19/19 07:52 Weight: 204 lb Wound Present: No Closed Surgical Incision Present: Yes Negative Pressure Wound Therapy Present: No Physician Update: Hgb is down to 7.9. He is getting 2 units of PRBCs and GI consult. His UA appears positive. He is getting a straight cath. He did well walking 250' standy to contact guard. He has mild to minimum assistance with lower body dressing. Functional Improvement: pt has demonstrated improved tolerance and functional performance this week. pt has improvd his ability to performed sit <-> stand transfers without the need for any lifting assist. pt has demonstrated improved balance and stability with ambulation. Skilled PT services continue to be necessary to enhance functional independence. Summary: Patient's care plan and nursing home goals have been reviewed and revised as necessary. Please see the Rehabilitation Signature page for all necessary signatures.
[2019-12-19] MEDS ORDERED: NA CHLORIDE 0.9% 250 ML IV SCH (10:00)
[2019-12-19 10:10] LABS: Platelet Estimate ADEQ
[2019-12-19 10:11] LABS: Blood Morphology Comment NOT SEEN (NOT SEEN)
[2019-12-19] MEDS: CIPROFLOXACIN HCL 250 MG TAB PO SCH ×2 (11:25→20:33)
--- NOTE | 2019-12-19 16:32 | P.PN ---
Subjective Date of Service: 12/19/19 Chief Complaint: DOING GOOD. SP HIP FRACTURE,HERE FOR PT. STABLE. NO CHANGES. FEELS GOOD. NO CHANGES. HAS NO UTI SYMPTOMS. HAS NO FEVER. HE SHOWS NO SIGN OF BLEEDING FROM GI TRACT. Review of Systems 10-point ROS is otherwise unremarkable Physical Examination - Vital Signs Temperature: 98.5 F Blood Pressure: 113/62 Pulse: 78 Respirations: 18 Pulse Ox (%): 94 - Physical Exam General: Alert, In no apparent distress HEENT: Atraumatic, PERRLA, EOMI Neck: Supple, JVD not distended Respiratory: Clear to auscultation bilaterally, Normal air movement Cardiovascular: Regular rate/rhythm, Normal S1 S2 Gastrointestinal: Normal bowel sounds, No tenderness Musculoskeletal: No tenderness Integumentary: No rashes Neurological: Normal speech, Normal tone, Normal affect Lymphatics: No axilla or inguinal lymphadenopathy - Studies Laboratory Data (last 24 hrs) 12/19/19 06:02: Sodium 138, Potassium 3.8, BUN 12, Creatinine 0.79, Glucose 201 H 12/19/19 06:02: WBC 5.5, Hgb 7.9 L*, Hct 21.7 L, Plt Count 151 L Microbiology Data (last 24 hrs): 12/19/19 08:25 Stool Occult Blood - Final Medications List Reviewed: Yes Assessment And Plan - Current Problems (Diagnosis) (1) Closed right hip fracture Current Visit: No Status: Acute Plan: CONT PT . FALL PREC. Qualifiers: Encounter type: subsequent encounter (2) Diabetes type 2, controlled Onset Date: 03/05/17 Current Visit: No Status: Chronic Plan: FU ON LDL AND A1C DONE. (3) Anemia Current Visit: Yes Status: Acute Plan: HOLD AC WILL DO LAB EVERY OTHER DAY. NO ACUTE BLEEDING HE CAN SEE HIS GI DOCTOR [facility]. ANEMIA CHARACTER IS OF CHRONIC DISEASE. LOW IRON, TIBC AND NORMAL FERRITIN. WILL FU. GIVE TWO UNITS OF PRBCS
[2019-12-19] MEDS: ATORVASTATIN 80 MG TAB PO SCH (20:34)
[2019-12-20 06:15] LABS: Absolute Lymphocytes (CBC) 1.2 K/uL (0.7-4.9); Basophils % 0.9 % (0-1.3); Hematocrit 27.6 % (39.6-49.0); Lymphocytes % 17.7 % (15.3-44.8); MPV 8.7 fL (7.6-11.3); RBC Red Blood Cell Count 3.21 M/uL (4.33-5.43)
[2019-12-20 06:23] LABS: Potassium 4.1 mmol/L (3.5-5.1)
[2019-12-20 07:01] LABS: Blood Morphology Comment NOT SEEN (NOT SEEN); Platelet Estimate ADEQ
[2019-12-20] MEDS: LEVOTHYROXINE SOD 0.05 MG TABLET PO SCH (07:19)
[2019-12-20] MEDS: INSULIN -REGULAR HUMAN 50 UNIT/0.5 ML ML SQ SCH ×4 (08:33→21:00)
[2019-12-20] MEDS: FINASTERIDE 5 MG TAB PO SCH (08:35)
[2019-12-20] MEDS: CRANBERRY FRUIT EXTRACT 200 MG CAP PO SCH ×2 (08:36→20:11)
[2019-12-20] MEDS: DOCUSATE NA 100 MG CAP PO SCH ×2 (08:36→20:11)
[2019-12-20] MEDS: CLOPIDOGREL 75 MG TABLET PO SCH (08:36)
[2019-12-20] MEDS: CIPROFLOXACIN HCL 250 MG TAB PO SCH ×2 (08:36→20:12)
[2019-12-20] MEDS: TRAMADOL HCL 50 MG TAB PO PRN ×3 (08:37→20:13)
[2019-12-20] MEDS: INSULIN GLARGINE 100 UNITS/ML SQ SCH ×2 (08:38→20:14)
[2019-12-20] MEDS: VALSARTAN 80 MG TAB PO SCH (12:35)
--- NOTE | 2019-12-20 14:33 | P.PN ---
Subjective Date of Service: 12/20/19 Chief Complaint: DOING GOOD. Subjective: Improving SP HIP FRACTURE,HERE FOR PT. STABLE. NO CHANGES. FEELS GOOD. NO CHANGES. HAS NO UTI SYMPTOMS. HAS NO FEVER. HE SHOWS NO SIGN OF BLEEDING FROM GI TRACT. HE IS STABLE , HAS NO COMPLAINTS. Review of Systems 10-point ROS is otherwise unremarkable Physical Examination - Vital Signs Temperature: 98.6 F Blood Pressure: 138/60 Pulse: 77 Respirations: 16 Pulse Ox (%): 100 - Physical Exam General: Alert, In no apparent distress HEENT: Atraumatic, PERRLA, EOMI Neck: Supple, JVD not distended Respiratory: Clear to auscultation bilaterally, Normal air movement Cardiovascular: Regular rate/rhythm, Normal S1 S2 Gastrointestinal: Normal bowel sounds, No tenderness Musculoskeletal: No tenderness Integumentary: No rashes Neurological: Normal speech, Normal tone, Normal affect Lymphatics: No axilla or inguinal lymphadenopathy - Studies Laboratory Data (last 24 hrs) 12/20/19 06:02: Sodium 137, Potassium 4.1, BUN 13, Creatinine 0.84, Glucose 160 H 12/20/19 06:02: WBC 6.6 D, Hgb 9.7 L, Hct 27.6 L, Plt Count 162 12/19/19 22:19: Hgb 9.7 L, Hct 28.0 L D Microbiology Data (last 24 hrs): 12/19/19 08:25 Stool Occult Blood - Final Medications List Reviewed: Yes Assessment And Plan - Current Problems (Diagnosis) (1) Closed right hip fracture Current Visit: No Status: Acute Plan: CONT PT . FALL PREC. Qualifiers: Encounter type: subsequent encounter (2) Diabetes type 2, controlled Onset Date: 03/05/17 Current Visit: No Status: Chronic Plan: FU ON LDL AND A1C DONE. (3) Anemia Current Visit: Yes Status: Acute Plan: HOLD AC WILL DO LAB EVERY OTHER DAY. NO ACUTE BLEEDING HE CAN SEE HIS GI DOCTOR [facility]. ANEMIA CHARACTER IS OF CHRONIC DISEASE. LOW IRON, TIBC AND NORMAL FERRITIN. WILL FU. GIVE TWO UNITS OF PRBCS MDS IS THE REASON FOR ANEMIA. SHE HAS SEEN DR. MELENDEZ FOR IT 5 YEARS AGO. WILL FU HG RTNLY.
[2019-12-20] MEDS: ATORVASTATIN 80 MG TAB PO SCH (20:14)
[2019-12-21] MEDS: LEVOTHYROXINE SOD 0.05 MG TABLET PO SCH (06:35)
[2019-12-21] MEDS: INSULIN -REGULAR HUMAN 50 UNIT/0.5 ML ML SQ SCH ×4 (07:30→20:16)
[2019-12-21] MEDS: CRANBERRY FRUIT EXTRACT 200 MG CAP PO SCH ×2 (08:00→19:27)
[2019-12-21] MEDS: VALSARTAN 80 MG TAB PO SCH (08:00)
[2019-12-21] MEDS: CIPROFLOXACIN HCL 250 MG TAB PO SCH ×2 (08:02→19:27)
[2019-12-21] MEDS: FINASTERIDE 5 MG TAB PO SCH (08:02)
[2019-12-21] MEDS: CLOPIDOGREL 75 MG TABLET PO SCH (08:02)
[2019-12-21] MEDS: DOCUSATE NA 100 MG CAP PO SCH ×2 (08:02→19:28)
[2019-12-21] MEDS: INSULIN GLARGINE 100 UNITS/ML SQ SCH (08:03)
--- NOTE | 2019-12-21 12:54 | P.PN ---
Subjective Date of Service: 12/21/19 Chief Complaint: DOING GOOD. Subjective: Improving SP HIP FRACTURE,HERE FOR PT. STABLE. NO CHANGES. FEELS GOOD. NO CHANGES. HAS NO UTI SYMPTOMS. HAS NO FEVER. HE SHOWS NO SIGN OF BLEEDING FROM GI TRACT. HE IS STABLE , HAS NO COMPLAINTS. NO CHANGES, HE REMEMBERS HE HAD SEEN DR MELENDEZ BEFORE. Physical Examination - Vital Signs Temperature: 98.1 F Blood Pressure: 107/61 Pulse: 72 Respirations: 16 Pulse Ox (%): 100 - Physical Exam General: Alert, In no apparent distress HEENT: Atraumatic, PERRLA, EOMI Neck: Supple, JVD not distended Respiratory: Clear to auscultation bilaterally, Normal air movement Cardiovascular: Regular rate/rhythm, Normal S1 S2 Gastrointestinal: Normal bowel sounds, No tenderness Musculoskeletal: No tenderness Integumentary: No rashes Neurological: Normal speech, Normal tone, Normal affect Lymphatics: No axilla or inguinal lymphadenopathy - Studies Microbiology Data (last 24 hrs): 12/19/19 07:30 Catheterized Urine [place] Count - Final No growth. 12/19/19 07:30 Catheterized Urine - Final No growth. Medications List Reviewed: Yes Assessment And Plan - Current Problems (Diagnosis) (1) Closed right hip fracture Current Visit: No Status: Acute Plan: CONT PT . FALL PREC. Qualifiers: Encounter type: subsequent encounter (2) Diabetes type 2, controlled Onset Date: 03/05/17 Current Visit: No Status: Chronic Plan: FU ON LDL AND A1C DONE. (3) Anemia Current Visit: Yes Status: Acute Plan: HOLD AC WILL DO LAB EVERY OTHER DAY. NO ACUTE BLEEDING HE CAN SEE HIS GI DOCTOR [facility]. ANEMIA CHARACTER IS OF CHRONIC DISEASE. LOW IRON, TIBC AND NORMAL FERRITIN. WILL FU. GIVE TWO UNITS OF PRBCS MDS IS THE REASON FOR ANEMIA. SHE HAS SEEN DR. MELENDEZ FOR IT 5 YEARS AGO. WILL FU HG RTNLY.
--- NOTE | 2019-12-21 14:25 | FAST ---
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 Gopal Merrill M.D. ADMISSION DIAGNOSIS: - Orthopaedic Disorders 08 - Unilateral Hip Fracture (08.11) RIGHT HIP FRACTURE. EATING: EATING - STEP 1: Does the patient complete the activity by him/herself with no assistance (physical, verbal/nonverbal cueing, setup/clean-up)? No. EATING - STEP 2: Does the patient need only setup/clean-up assistance from one helper? Yes. 1. [id number] ADMISSION PERFORMANCE: Setup or clean-up assistance CODE: 05 ORAL HYGIENE: ORAL HYGIENE - STEP 1: Does the patient complete the activity by him/herself with no assistance (physical, verbal/nonverbal cueing, setup/clean-up)? No. ORAL HYGIENE - STEP 2: Does the patient need only setup/clean-up assistance from one helper? Yes. 1. [id number] ADMISSION PERFORMANCE: Setup or clean-up assistance CODE: 05 TOILETING HYGIENE: TOILETING HYGIENE - STEP 1: Does the patient complete the activity by him/herself with no assistance (physical, verbal/nonverbal cueing, setup/clean-up)? No. TOILETING HYGIENE - STEP 2: Does the patient need only setup/clean-up assistance from one helper? Yes. 1. [id number] ADMISSION PERFORMANCE: Setup or clean-up assistance CODE: 05 BATHING: SHOWER/BATHE SELF - STEP 1: Does the patient complete the activity by him/herself with no assistance (physical, verbal/nonverbal cueing, setup/clean-up)? No. SHOWER/BATHE SELF - STEP 2: Does the patient need only setup/clean-up assistance from one helper? Yes. 1. [id number] ADMISSION PERFORMANCE: Setup or clean-up assistance CODE: 05 DRESSING - UPPER BODY: DRESSING - UPPER BODY - STEP 1: Does the patient complete the activity by him/herself with no assistance (physical, verbal/nonverbal cueing, setup/clean-up)? No. DRESSING - UPPER BODY - STEP 2: Does the patient need only setup/clean-up assistance from one helper? Yes. 1. [id number] ADMISSION PERFORMANCE: Setup or clean-up assistance CODE: 05 DRESSING - LOWER BODY: DRESSING - LOWER BODY - STEP 1: Does the patient complete the activity by him/herself with no assistance (physical, verbal/nonverbal cueing, setup/clean-up)? No. DRESSING - LOWER BODY - STEP 2: Does the patient need only setup/clean-up assistance from one helper? No. DRESSING - LOWER BODY - STEP 3: Does the patient need only verbal/nonverbal cueing or touching/steadying/contact guard assistance fro m one helper? Yes. 1. [id number] ADMISSION PERFORMANCE: Supervision or touching assistance CODE: 04 PUTTING ON/TAKING OFF FOOTWEAR: FOOTWEAR - STEP 1: Does the patient complete the activity by him/herself with no assistance (physical, verbal/nonverbal cueing, setup/clean-up)? No. FOOTWEAR - STEP 2: Does the patient need only setup/clean-up assistance from one helper? No. FOOTWEAR - STEP 3: Does the patient need only verbal/nonverbal cueing or touching/steadying/contact guard assistance fro m one helper? Yes. 1. [id number] ADMISSION PERFORMANCE: Supervision or touching assistance CODE: 04 ROLL LEFT AND RIGHT: ROLL LEFT AND RIGHT - STEP 1: Does the patient complete the activity by him/herself with no assistance (physical, verbal/nonverbal cueing, setup/clean-up)? No. ROLL LEFT AND RIGHT - STEP 2: Does the patient need only setup/clean-up assistance from one helper? No. ROLL LEFT AND RIGHT - STEP 3: Does the patient need only verbal/nonverbal cueing or touching/steadying/contact guard assistance fro m one helper? Yes. 1. [id number] ADMISSION PERFORMANCE: Supervision or touching assistance CODE: 04 SIT TO LYING: SIT TO LYING - STEP 1: Does the patient complete the activity by him/herself with no assistance (physical, verbal/nonverbal cueing, setup/clean-up)? No. SIT TO LYING - STEP 2: Does the patient need only setup/clean-up assistance from one helper? No. SIT TO LYING - STEP 3: Does the patient need only verbal/nonverbal cueing or touching/steadying/contact guard assistance fro m one helper? Yes. 1. [id number] ADMISSION PERFORMANCE: Supervision or touching assistance CODE: 04 LYING TO SITTING: LYING TO SITTING ON SIDE OF BED - STEP 1: Does the patient complete the activity by him/herself with no assistance (physical, verbal/nonverbal cueing, setup/clean-up)? No. LYING TO SITTING ON SIDE OF BED - STEP 2: Does the patient need only setup/clean-up assistance from one helper? No. LYING TO SITTING ON SIDE OF BED - STEP 3: Does the patient need only verbal/nonverbal cueing or touching/steadying/contact guard assistance fro m one helper? Yes. 1. [id number] ADMISSION PERFORMANCE: Supervision or touching assistance CODE: 04 SIT TO STAND: SIT TO STAND - STEP 1: Does the patient complete the activity by him/herself with no assistance (physical, verbal/nonverbal cueing, setup/clean-up)? No. SIT TO STAND - STEP 2: Does the patient need only setup/clean-up assistance from one helper? No. SIT TO STAND - STEP 3: Does the patient need only verbal/nonverbal cueing or touching/steadying/contact guard assistance fro m one helper? Yes. 1. [id number] ADMISSION PERFORMANCE: Supervision or touching assistance CODE: 04 TRANSFERS: BED, CHAIR: CHAIR/[id number] TRANSFER - STEP 1: Does the patient complete the activity by him/herself with no assistance (physical, verbal/nonverbal cueing, setup/clean-up)? No. CHAIR/[id number] TRANSFER - STEP 2: Does the patient need only setup/clean-up assistance from one helper? No. CHAIR/[id number] TRANSFER - STEP 3: Does the patient need only verbal/nonverbal cueing or touching/steadying/contact guard assistance fro m one helper? Yes. 1. [id number] ADMISSION PERFORMANCE: Supervision or touching assistance CODE: 04 TRANSFER TOILET: TOILET TRANSFER - STEP 1: Does the patient complete the activity by him/herself with no assistance (physical, verbal/nonverbal cueing, setup/clean-up)? No. TOILET TRANSFER - STEP 2: Does the patient need only setup/clean-up assistance from one helper? No. TOILET TRANSFER - STEP 3: Does the patient need only verbal/nonverbal cueing or touching/steadying/contact guard assistance fro m one helper? Yes. 1. [id number] ADMISSION PERFORMANCE: Supervision or touching assistance CODE: 04 TRANSFERS: CAR: Not assessed/no information CODE: - WALK 10 FEET: Not assessed/no information CODE: - 1 STEP (CURB): Not assessed/no information CODE: - PICKING UP OBJECT: Not assessed/no information CODE: - DOES THE PATIENT USE A WHEELCHAIR/SCOOTER? CODE: EXPR WHEEL 50 FEET WITH TWO TURNS: WHEEL 50 FEET WITH TWO TURNS - STEP 1: Does the patient complete the activity by him/herself with no assistance (physical, verbal/nonverbal cueing, setup/clean-up)? No. WHEEL 50 FEET WITH TWO TURNS - STEP 2: Does the patient need only setup/clean-up assistance from one helper? No. WHEEL 50 FEET WITH TWO TURNS - STEP 3: Does the patient need only verbal/nonverbal cueing or touching/steadying/contact guard assistance fro m one helper? Yes. 1. [id number] ADMISSION PERFORMANCE: Supervision or touching assistance CODE: 04 INDICATE THE TYPE OF WHEELCHAIR/SCOOTER USED: RR1. INDICATE THE TYPE OF WHEELCHAIR/SCOOTER USED.: Manual CODE: 1 WHEEL 150 FEET: WHEEL 150 FEET - STEP 1: Does the patient complete the activity by him/herself with no assistance (physical, verbal/nonverbal cueing, setup/clean-up)? No. WHEEL 150 FEET - STEP 2: Does the patient need only setup/clean-up assistance from one helper? No. WHEEL 150 FEET - STEP 3: Does the patient need only verbal/nonverbal cueing or touching/steadying/contact guard assistance fro m one helper? Yes. 1. [id number] ADMISSION PERFORMANCE: Supervision or touching assistance CODE: 04 INDICATE THE TYPE OF WHEELCHAIR/SCOOTER USED: SS1. INDICATE THE TYPE OF WHEELCHAIR/SCOOTER USED.: Manual CODE: 1 BLADDER AND BOWEL: H350. BLADDER CONTINENCE (3-DAY ASSESSMENT PERIOD): Always continent (no documented incontinence) CODE: 0 H400. BOWEL CONTINENCE (3-DAY ASSESSMENT PERIOD): Always continent CODE: 0 SIGNATURE PANEL: The following modified sections: 1. [id number] Admission Performance, 1. [id number] Admission Performance, 1. [id number] Admission Performance, 1. [id number] Admission Performance, 1. FB3853p Admission Performance, 1. TB7502c Admission Performance, 1. [id number] Admission Performance, 1. [id number] Admission Performance , 1. [id number] Admission Performance, 1. [id number] Admission Performance, 1. [id number] Admission Performanc e, 1. [id number] Admission Performance, 1. KY8520S Admission Performance, 1. [id number] Admission Performan ce, 1. ON3229V Admission Performance, RR1. Indicate the type of wheelchair/scooter used., 1. [id number] Admission Performance, Code, SS1. Indicate the type of wheelchair/scooter used., H350. Bladder Contin ence (3-day assessment period), H400. Bowel Continence (3-day assessment period) were [electronically ] signed by Vanessa Elder [email or web address] on SunDec 21 2019 14:24:15 T-0600 (Central Standard Time)
[2019-12-21] MEDS: FE SULF/FA/VIT B COMP & C TAB PO SCH (17:02)
[2019-12-21] MEDS: FERROUS SULFATE 325 MG TAB PO SCH (17:02)
--- NOTE | 2019-12-21 17:30 | R.PN ---
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 Pt denied any Shortness of Breath. WBC 5.6, Hgb 8.2, Plt 144, glu 183 to 285, prealbumin 8.6. Xarelto was D/Emeka. He is using SCDs. UA e sterase 3+, WBC TNTC. VITAL SIGNS Temperature: 97.8 F SBP/DBP: 121/85 Pulse: 75 Resp: 16 MEDICATION ALLERGIES: No Known Drug Allergies (NKDA) ENVIRONMENTAL ALLERGIES: - Substance Allergies None Known - Other Allergies None Known NURSING: - Shower allowing shower - Skin care per protocol PRECAUTIONS: - Anterior Hip Precaution No abduction No active extension No adduction across midline No external rotation No hip flexion >90 degrees No internal rotation - Posterior Hip Precaution No adduction across midline No external rotation No hip flexion >90 degrees No internal rotation No wheel chair propulsion - Weight Bearing Precaution WBAT right LE ACTIVITIES OOB only with supervision THERAPIES: - Dietary and Nutrition Adequate Nutrition. Nutritional Education. Nutritional Supplements. PHYSICAL EXAM - Gen Alert and awake Lying in bed No apparent distress Oriented to: person, time, and place - Skin No breakdown Normacephalic - Eyes No abnormalities - ENMT No abnormalities - Neck No abnormalities - CVS RRR - Chest No abnormalities - Resp Clear to auscultation - Abd Soft - GI + bowel sounds Deferred - No abnormalities - Ext Right hip surgical site has good hemostasis. - MSK 4+/5 weakness in right lower extremity - Neuro 4/5 strength right lower extremity. - Psych No abnormalities ASSESSMENT: Pt. is a 84 yo Right-handed male of unknown race.On 12/11/2019 he was admitted to [facility] with diagnosis RIGHT HIP FRACTURE.His impairment category is Orthopaedic Disorders 08 - Unilate ral Hip Fracture (08.11).Pre-morbidly, Pt. was independent/mod-I in Safety Awareness, Self-Care, and Communication; and he had good Sphincter Control, Transfers Control, and Locomotion.Currently, he has deficits of Endurance, Safety Awareness, Locomotion, Balance, and Sphincter Control.Pt. is now refer red to [facility] for acute in-patient rehabilitation in order to maximize pat ient's functional independence in activities of daily living, strength, ROM, and mobility.- Rehab Goa l Patient has realistic goal of being discharged at assistance level 7-Ind to reside at Home with Fami ly/Relatives. MDM/PLAN: - Physical Therapy Decreased range of motion - to improve, our physical therapists will perform initial evaluation of p t's status upon admission and devise an individualized program for increasing patient's Range of Andrey on. Need for home safety evaluation - to improve, our physical therapists will perform initial evaluatio n of pt's status upon admission and devise an individualized program for Home Evaluation Need in caregiver upon discharge - to improve, our physical therapists will perform initial evaluati on of pt's status upon admission and devise an individualized program for Caregiver Training New precaution - to improve, our physical therapists will perform initial evaluation of pt's status upon admission and devise an individualized program for Patient precaution education Poor balance - to improve, our physical therapists will perform initial evaluation of pt's status up on admission and devise an individualized program for Balance Training Poor endurance - to improve, our physical therapists will perform initial evaluation of pt's status upon admission and devise an individualized program for Endurance Training Achieving independence - to improve, our physical therapists will perform initial evaluation of pt's status upon admission and devise an individualized program for Community Reintegration Activities - Occupational Therapy Need for care transitions nurse - to improve, our occupation therapists will perform initial evaluation of pt's status upon admission and devise an individualized program for Caregiver Training - Other See attached MAR (Medication Administration Record) - Anterior Hip Precaution No abduction No active extension No adduction across midline No external rotation No hip flexion >90 degrees No internal rotation - Diet - Liquid Texture Continue Regular - Tube Feed Continue N/A - Diet Type Continue Regular - Posterior Hip Precaution No adduction across midline No external rotation No hip flexion >90 degrees No internal rotation No wheel chair propulsion - Weight Bearing Precaution WBAT right LE - Skin care per protocol - Diet - Solid Texture Continue Regular - Shower allowing shower FUNCTIONAL STATUS: UPDATED AT WEEKLY TEAM CONFERENCE - Bladder Same accident frequency: 7-Ind - No accidents in the past 7 days - Bowel Same accident frequency: 7-Ind - No accidents in the past 7 days - Walking Same score based on distance walked: 0(N/A) Same score based on distance walked: 1(<=50ft) - Wheelchair Same score based on distance traveled: 0(N/A) FUNCTIONAL STATUS: - Self-Care A. Eating Shashi B. Grooming Shashi C. Bathing sup D. Dressing - Upper sup E. Dressing - Lower Abril F. Toileting Abril - Sphincter Control G. Bladder control sup H. Bowel control sup - Transfers Control I. Bed/Chair/Wheelchair sup J. Toilet sup K. Tub/Shower Abril - Locomotion L. Walk/Wheelchair (B) Abril M. Stairs modA - Communication N. Comprehension (B) Shashi O. Expression (B) Shashi - Social Cognition P. Social Interaction Shashi Q. Problem Solving Shashi R. Memory Shashi - Endurance Fair - Balance Fair - Safety Awareness Fair QI SCORES: - Self-Care A. Eating 03-Partial/moderate assistance B. Oral hygiene 03-Partial/moderate assistance C. Toileting hygiene 03-Partial/moderate assistance E. Shower/bathe self 03-Partial/moderate assistance F. Upper body dressing 03-Partial/moderate assistance G. Lower body dressing 03-Partial/moderate assistance H. Putting on/taking off footwear 88-Not attempted due to medical condition or safety concerns - Mobility A. Roll left and right 03-Partial/moderate assistance B. Sit to lying 03-Partial/moderate assistance C. Lying to sitting on side of bed 03-Partial/moderate assistance D. Sit to stand 03-Partial/moderate assistance E. Chair/xsv-[id number] transfer 03-Partial/moderate assistance F. Toilet transfer 03-Partial/moderate assistance G. Car transfer 88-Not attempted due to medical condition or safety concerns I. Walk 10 feet 88-Not attempted due to medical condition or safety concerns J. Walk 50 feet with two turns 88-Not attempted due to medical condition or safety concerns K. Walk 150 feet 88-Not attempted due to medical condition or safety concerns L. Walking 10 feet on uneven surfaces 88-Not attempted due to medical condition or safety concerns M. 1 step (curb) 88-Not attempted due to medical condition or safety concerns N. 4 steps 88-Not attempted due to medical condition or safety concerns O. 12 steps 88-Not attempted due to medical condition or safety concerns P. Picking up object 88-Not attempted due to medical condition or safety concerns R. Wheel 50 feet with two turns 88-Not attempted due to medical condition or safety concerns S. Wheel 150 feet 88-Not attempted due to medical condition or safety concerns - Bladder and Bowel Bladder continence Bowel continence - Endurance Good - Balance Good - Safety Awareness Good CURRENT FUNC. 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
[2019-12-21] MEDS: JUVEN PACKET PO SCH (19:28)
[2019-12-21] MEDS: ATORVASTATIN 80 MG TAB PO SCH (20:16)
[2019-12-21] MEDS ORDERED: INSULIN GLARGINE 100 UNITS/ML SQ SCH (21:00)
[2019-12-22 05:52] LABS: Absolute Lymphocytes (CBC) 1.2 K/uL (0.7-4.9); Basophils % 0.7 % (0-1.3); Hematocrit 30.1 % (39.6-49.0); Lymphocytes % 15.4 % (15.3-44.8); RBC Red Blood Cell Count 3.52 M/uL (4.33-5.43)
[2019-12-22 06:09] LABS: BUN Blood Urea Nitrogen 15 mg/dL (7-18); Bicarbonate 28 mmol/L (21-32); Glucose Level 202 mg/dL (74-106); Potassium 4.5 mmol/L (3.5-5.1); Sodium Level 136 mmol/L (136-145)
[2019-12-22] MEDS: LEVOTHYROXINE SOD 0.05 MG TABLET PO SCH (06:38)
[2019-12-22 06:57] LABS: White Blood Cell Scan OK (OK)
[2019-12-22 06:58] LABS: Blood Morphology Comment NOT SEEN (NOT SEEN); Platelet Estimate ADEQ
[2019-12-22] MEDS ORDERED: INSULIN GLARGINE 100 UNITS/ML SQ SCH (08:00)
[2019-12-22] MEDS: VALSARTAN 80 MG TAB PO SCH (08:00)
[2019-12-22] MEDS: FINASTERIDE 5 MG TAB PO SCH (08:22)
[2019-12-22] MEDS: FERROUS SULFATE 325 MG TAB PO SCH (08:22)
[2019-12-22] MEDS: RIVAROXABAN 10 MG TABLET PO SCH (08:22)
[2019-12-22] MEDS: CRANBERRY FRUIT EXTRACT 200 MG CAP PO SCH ×2 (08:22→20:15)
[2019-12-22] MEDS: FE SULF/FA/VIT B COMP & C TAB PO SCH (08:22)
[2019-12-22] MEDS: DOCUSATE NA 100 MG CAP PO SCH ×2 (08:23→20:15)
[2019-12-22] MEDS: TRAMADOL HCL 50 MG TAB PO PRN (08:23)
[2019-12-22] MEDS: INSULIN -REGULAR HUMAN 50 UNIT/0.5 ML ML SQ SCH ×4 (08:27→20:15)
[2019-12-22] MEDS: CLOPIDOGREL 75 MG TABLET PO SCH (09:00)
[2019-12-22] MEDS: JUVEN PACKET PO SCH ×2 (09:00→20:00)
[2019-12-22] MEDS ORDERED: DOCUSATE NA/SENNA CONC 1 TAB PO PRN (09:42)
[2019-12-22] MEDS: POLYETHYL GLY 3350 17 GM/DOSE PO PRN (12:09)
[2019-12-22] MEDS ORDERED: TRAMADOL HCL 50 MG TAB PO PRN (12:18)
[2019-12-22] MEDS: LIDOCAINE 4% PATCH TOP SCH (14:52)
[2019-12-22] MEDS: ACETAMINOPHEN 500 MG TAB PO PRN (14:52)
--- NOTE | 2019-12-22 17:17 | R.PN ---
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 Pt denied any Shortness of Breath. WBC 7.6, Hgb 10.5, Plt 173, glu 195 to 258, prealbumin 8.6. Xarelto was D/Emeka. He is using SCDs. UA esterase 3+, WBC TNTC. Ambulated 600' with contact guard to standby assistance using a rolling walker. Up and down 5 steps w ith contact guard assistance. VITAL SIGNS Temperature: 98.1 F SBP/DBP: 114/70 Pulse: 75 Resp: 16 MEDICATION ALLERGIES: No Known Drug Allergies (NKDA) ENVIRONMENTAL ALLERGIES: - Substance Allergies None Known - Other Allergies None Known NURSING: - Shower allowing shower - Skin care per protocol PRECAUTIONS: - Anterior Hip Precaution No abduction No active extension No adduction across midline No external rotation No hip flexion >90 degrees No internal rotation - Posterior Hip Precaution No adduction across midline No external rotation No hip flexion >90 degrees No internal rotation No wheel chair propulsion - Weight Bearing Precaution WBAT right LE ACTIVITIES OOB only with supervision THERAPIES: - Dietary and Nutrition Adequate Nutrition. Nutritional Education. Nutritional Supplements. PHYSICAL EXAM - Gen Alert and awake Lying in bed No apparent distress Oriented to: person, time, and place - Skin No breakdown Normacephalic - Eyes No abnormalities - ENMT No abnormalities - Neck No abnormalities - CVS RRR - Chest No abnormalities - Resp Clear to auscultation - Abd Soft - GI + bowel sounds Deferred - No abnormalities - Ext Right hip surgical site has good hemostasis. - MSK 4+/5 weakness in right lower extremity - Neuro 4/5 strength right lower extremity. - Psych No abnormalities ASSESSMENT: Pt. is a 84 yo Right-handed male of unknown race.On 12/11/2019 he was admitted to [facility] with diagnosis RIGHT HIP FRACTURE.His impairment category is Orthopaedic Disorders 08 - Unilate ral Hip Fracture (08).Pre-morbidly, Pt. was independent/mod-I in Safety Awareness, Self-Care, and Communication; and he had good Sphincter Control, Transfers Control, and Locomotion.Currently, he has deficits of Endurance, Safety Awareness, Locomotion, Balance, and Sphincter Control.Pt. is now refer red to [facility] for acute in-patient rehabilitation in order to maximize pat cadennt's functional independence in activities of daily living, strength, ROM, and mobility.- Rehab Goa l Patient has realistic goal of being discharged at assistance level 7-Ind to reside at Home with Fami ly/Relatives. MDM/PLAN: - Physical Therapy Decreased range of motion - to improve, our physical therapists will perform initial evaluation of p t's status upon admission and devise an individualized program for increasing patient's Range of Andrey on. Need for home safety evaluation - to improve, our physical therapists will perform initial evaluatio n of pt's status upon admission and devise an individualized program for Home Evaluation Need in caregiver upon discharge - to improve, our physical therapists will perform initial evaluati on of pt's status upon admission and devise an individualized program for Caregiver Training New precaution - to improve, our physical therapists will perform initial evaluation of pt's status upon admission and devise an individualized program for Patient precaution education Poor balance - to improve, our physical therapists will perform initial evaluation of pt's status up on admission and devise an individualized program for Balance Training Poor endurance - to improve, our physical therapists will perform initial evaluation of pt's status upon admission and devise an individualized program for Endurance Training Achieving independence - to improve, our physical therapists will perform initial evaluation of pt's status upon admission and devise an individualized program for Community Reintegration Activities - Occupational Therapy Need for assistant child care teacher - to improve, our occupation therapists will perform initial evaluation of pt's status upon admission and devise an individualized program for Caregiver Training - Other See attached MAR (Medication Administration Record) - Anterior Hip Precaution No abduction No active extension No adduction across midline No external rotation No hip flexion >90 degrees No internal rotation - Diet - Liquid Texture Continue Regular - Tube Feed Continue N/A - Diet Type Continue Regular - Posterior Hip Precaution No adduction across midline No external rotation No hip flexion >90 degrees No internal rotation No wheel chair propulsion - Weight Bearing Precaution WBAT right LE - Skin care per protocol - Diet - Solid Texture Continue Regular - Shower allowing shower FUNCTIONAL STATUS: UPDATED AT WEEKLY TEAM CONFERENCE - Bladder Same accident frequency: 7-Ind - No accidents in the past 7 days - Bowel Same accident frequency: 7-Ind - No accidents in the past 7 days - Walking Same score based on distance walked: 0(N/A) Same score based on distance walked: 1(<=50ft) - Wheelchair Same score based on distance traveled: 0(N/A) FUNCTIONAL STATUS: - Self-Care A. Eating Shashi B. Grooming Shashi C. Bathing sup D. Dressing - Upper sup E. Dressing - Lower Abril F. Toileting Abril - Sphincter Control G. Bladder control sup H. Bowel control sup - Transfers Control I. Bed/Chair/Wheelchair sup J. Toilet sup K. Tub/Shower Abril - Locomotion L. Walk/Wheelchair (B) Abril M. Stairs modA - Communication N. Comprehension (B) Shashi O. Expression (B) Shashi - Social Cognition P. Social Interaction Shashi Q. Problem Solving Shashi R. Memory Shashi - Endurance Fair - Balance Fair - Safety Awareness Fair QI SCORES: - Self-Care A. Eating 03-Partial/moderate assistance B. Oral hygiene 03-Partial/moderate assistance C. Toileting hygiene 03-Partial/moderate assistance E. Shower/bathe self 03-Partial/moderate assistance F. Upper body dressing 03-Partial/moderate assistance G. Lower body dressing 03-Partial/moderate assistance H. Putting on/taking off footwear 88-Not attempted due to medical condition or safety concerns - Mobility A. Roll left and right 03-Partial/moderate assistance B. Sit to lying 03-Partial/moderate assistance C. Lying to sitting on side of bed 03-Partial/moderate assistance D. Sit to stand 03-Partial/moderate assistance E. Chair/zbv-[id number]-[id number] transfer 03-Partial/moderate assistance F. Toilet transfer 03-Partial/moderate assistance G. Car transfer 88-Not attempted due to medical condition or safety concerns I. Walk 10 feet 88-Not attempted due to medical condition or safety concerns J. Walk 50 feet with two turns 88-Not attempted due to medical condition or safety concerns K. Walk 150 feet 88-Not attempted due to medical condition or safety concerns L. Walking 10 feet on uneven surfaces 88-Not attempted due to medical condition or safety concerns M. 1 step (curb) 88-Not attempted due to medical condition or safety concerns N. 4 steps 88-Not attempted due to medical condition or safety concerns O. 12 steps 88-Not attempted due to medical condition or safety concerns P. Picking up object 88-Not attempted due to medical condition or safety concerns R. Wheel 50 feet with two turns 88-Not attempted due to medical condition or safety concerns S. Wheel 150 feet 88-Not attempted due to medical condition or safety concerns - Bladder and Bowel Bladder continence Bowel continence - Endurance Good - Balance Good - Safety Awareness Good CURRENT FUNC. 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
--- NOTE | 2019-12-22 18:09 | P.PN ---
Subjective Date of Service: 12/22/19 Chief Complaint: DOING GOOD. Subjective: Improving SP HIP FRACTURE,HERE FOR PT. STABLE. NO CHANGES. FEELS GOOD. NO CHANGES. HAS NO UTI SYMPTOMS. HAS NO FEVER. HE SHOWS NO SIGN OF BLEEDING FROM GI TRACT. HE IS STABLE , HAS NO COMPLAINTS. NO CHANGES, HE REMEMBERS HE HAD SEEN DR MELENDEZ BEFORE. NO BLOOD IN STOOL. Review of Systems 10-point ROS is otherwise unremarkable General: Weakness Physical Examination - Vital Signs Temperature: 98.1 F Blood Pressure: 114/70 Pulse: 75 Respirations: 18 Pulse Ox (%): 95 - Physical Exam General: Alert, In no apparent distress HEENT: Atraumatic, PERRLA, EOMI Neck: Supple, JVD not distended Respiratory: Clear to auscultation bilaterally, Normal air movement Cardiovascular: Regular rate/rhythm, Normal S1 S2 Gastrointestinal: Normal bowel sounds, No tenderness Musculoskeletal: No tenderness Integumentary: No rashes Neurological: Normal speech, Normal tone, Normal affect Lymphatics: No axilla or inguinal lymphadenopathy - Studies Laboratory Data (last 24 hrs) 12/22/19 05:23: Sodium 136, Potassium 4.5, BUN 15, Creatinine 0.76, Glucose 202 H 12/22/19 05:23: WBC 7.6 D, Hgb 10.5 L, Hct 30.1 L, Plt Count 173 Microbiology Data (last 24 hrs): 12/18/19 07:50 Nasopharnyx Coronavirus COVID-19 PCR - Final Medications List Reviewed: Yes Assessment And Plan - Current Problems (Diagnosis) (1) Closed right hip fracture Current Visit: No Status: Acute Plan: CONT PT . FALL PREC. RESUME XARELTO 10 MG. HOPEFULLY WILL TOLERATE. Qualifiers: Encounter type: subsequent encounter (2) Diabetes type 2, controlled Onset Date: 03/05/17 Current Visit: No Status: Chronic Plan: FU ON LDL AND A1C DONE. (3) Anemia Current Visit: Yes Status: Acute Plan: HOLD AC WILL DO LAB EVERY OTHER DAY. NO ACUTE BLEEDING HE CAN SEE HIS GI DOCTOR DIVINE DUENAS. ANEMIA CHARACTER IS OF CHRONIC DISEASE. LOW IRON, TIBC AND NORMAL FERRITIN. WILL FU. GIVE TWO UNITS OF PRBCS MDS IS THE REASON FOR ANEMIA. SHE HAS SEEN DR. MELENDEZ FOR IT 5 YEARS AGO. WILL FU HG RTNLY.
[2019-12-22] MEDS: ATORVASTATIN 80 MG TAB PO SCH (20:15)
[2019-12-22] MEDS: INSULIN GLARGINE 100 UNITS/ML SQ SCH (20:16)
[2019-12-23] MEDS: LEVOTHYROXINE SOD 0.05 MG TABLET PO SCH (06:23)
[2019-12-23] MEDS: LIDOCAINE 4% PATCH TOP SCH (06:57)
[2019-12-23] MEDS ORDERED: LIDOCAINE 4% PATCH TOP SCH (08:00)
[2019-12-23] MEDS: VALSARTAN 80 MG TAB PO SCH (08:00)
[2019-12-23] MEDS: ACETAMINOPHEN 500 MG TAB PO PRN (08:07)
[2019-12-23] MEDS: INSULIN -REGULAR HUMAN 50 UNIT/0.5 ML ML SQ SCH ×4 (08:08→19:47)
[2019-12-23] MEDS: FINASTERIDE 5 MG TAB PO SCH (08:08)
[2019-12-23] MEDS: INSULIN GLARGINE 100 UNITS/ML SQ SCH ×2 (08:08→20:00)
[2019-12-23] MEDS: CRANBERRY FRUIT EXTRACT 200 MG CAP PO SCH ×2 (08:09→19:46)
[2019-12-23] MEDS: CLOPIDOGREL 75 MG TABLET PO SCH (08:09)
[2019-12-23] MEDS: DOCUSATE NA 100 MG CAP PO SCH ×2 (08:10→19:46)
[2019-12-23] MEDS: FERROUS SULFATE 325 MG TAB PO SCH (08:10)
[2019-12-23] MEDS: RIVAROXABAN 10 MG TABLET PO SCH (08:10)
[2019-12-23] MEDS: JUVEN PACKET PO SCH ×2 (08:11→19:46)
[2019-12-23] MEDS: FE SULF/FA/VIT B COMP & C TAB PO SCH (08:11)
[2019-12-23] MEDS: TRAMADOL HCL 50 MG TAB PO PRN (12:40)
--- NOTE | 2019-12-23 18:58 | R.PN ---
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 Pt denied any Shortness of Breath. WBC 7.6, Hgb 10.5, Plt 173, glu 75 to 132, prealbumin 8.6. Xarelto was D/Emeka. He is using SCDs. UA e sterase 3+, WBC TNTC. Ambulated 550' with contact guard to standby assistance using a rolling walker. VITAL SIGNS Temperature: 97.9 F SBP/DBP: 112/62 Pulse: 78 Resp: 15 MEDICATION ALLERGIES: No Known Drug Allergies (NKDA) ENVIRONMENTAL ALLERGIES: - Substance Allergies None Known - Other Allergies None Known NURSING: - Shower allowing shower - Skin care per protocol PRECAUTIONS: - Anterior Hip Precaution No abduction No active extension No adduction across midline No external rotation No hip flexion >90 degrees No internal rotation - Posterior Hip Precaution No adduction across midline No external rotation No hip flexion >90 degrees No internal rotation No wheel chair propulsion - Weight Bearing Precaution WBAT right LE ACTIVITIES OOB only with supervision THERAPIES: - Dietary and Nutrition Adequate Nutrition. Nutritional Education. Nutritional Supplements. PHYSICAL EXAM - Gen Alert and awake Lying in bed No apparent distress Oriented to: person, time, and place - Skin No breakdown Normacephalic - Eyes No abnormalities - ENMT No abnormalities - Neck No abnormalities - CVS RRR - Chest No abnormalities - Resp Clear to auscultation - Abd Soft - GI + bowel sounds Deferred - No abnormalities - Ext Right hip surgical site has good hemostasis. - MSK 4+/5 weakness in right lower extremity - Neuro 4/5 strength right lower extremity. - Psych No abnormalities ASSESSMENT: Pt. is a 84 yo Right-handed male of unknown race.On 12/11/2019 he was admitted to [facility] with diagnosis RIGHT HIP FRACTURE.His impairment category is Orthopaedic Disorders 08 - Unilate ral Hip Fracture (08.11).Pre-morbidly, Pt. was independent/mod-I in Safety Awareness, Self-Care, and Communication; and he had good Sphincter Control, Transfers Control, and Locomotion.Currently, he has deficits of Endurance, Safety Awareness, Locomotion, Balance, and Sphincter Control.Pt. is now refer red to [facility] for acute in-patient rehabilitation in order to maximize pat ient's functional independence in activities of daily living, strength, ROM, and mobility.- Rehab Goran l Patient has realistic goal of being discharged at assistance level 7-Ind to reside at Home with Fami ly/Relatives. MDM/PLAN: - Physical Therapy Decreased range of motion - to improve, our physical therapists will perform initial evaluation of p t's status upon admission and devise an individualized program for increasing patient's Range of Andrey on. Need for home safety evaluation - to improve, our physical therapists will perform initial evaluatio n of pt's status upon admission and devise an individualized program for Home Evaluation Need in caregiver upon discharge - to improve, our physical therapists will perform initial evaluati on of pt's status upon admission and devise an individualized program for Caregiver Training New precaution - to improve, our physical therapists will perform initial evaluation of pt's status upon admission and devise an individualized program for Patient precaution education Poor balance - to improve, our physical therapists will perform initial evaluation of pt's status up on admission and devise an individualized program for Balance Training Poor endurance - to improve, our physical therapists will perform initial evaluation of pt's status upon admission and devise an individualized program for Endurance Training Achieving independence - to improve, our physical therapists will perform initial evaluation of pt's status upon admission and devise an individualized program for Community Reintegration Activities - Occupational Therapy Need for care aid - to improve, our occupation therapists will perform initial evaluation of pt's status upon admission and devise an individualized program for Caregiver Training - Other See attached MAR (Medication Administration Record) - Anterior Hip Precaution No abduction No active extension No adduction across midline No external rotation No hip flexion >90 degrees No internal rotation - Diet - Liquid Texture Continue Regular - Tube Feed Continue N/A - Diet Type Continue Regular - Posterior Hip Precaution No adduction across midline No external rotation No hip flexion >90 degrees No internal rotation No wheel chair propulsion - Weight Bearing Precaution WBAT right LE - Skin care per protocol - Diet - Solid Texture Continue Regular - Shower allowing shower FUNCTIONAL STATUS: UPDATED AT WEEKLY TEAM CONFERENCE - Bladder Same accident frequency: 7-Ind - No accidents in the past 7 days - Bowel Same accident frequency: 7-Ind - No accidents in the past 7 days - Walking Same score based on distance walked: 0(N/A) Same score based on distance walked: 1(<=50ft) - Wheelchair Same score based on distance traveled: 0(N/A) FUNCTIONAL STATUS: - Self-Care A. Eating Shashi B. Grooming Shashi C. Bathing sup D. Dressing - Upper sup E. Dressing - Lower Abril F. Toileting Abril - Sphincter Control G. Bladder control sup H. Bowel control sup - Transfers Control I. Bed/Chair/Wheelchair sup J. Toilet sup K. Tub/Shower Abril - Locomotion L. Walk/Wheelchair (B) Abril M. Stairs modA - Communication N. Comprehension (B) Shashi O. Expression (B) Shashi - Social Cognition P. Social Interaction Shashi Q. Problem Solving Shashi R. Memory Shashi - Endurance Fair - Balance Fair - Safety Awareness Fair QI SCORES: - Self-Care A. Eating 03-Partial/moderate assistance B. Oral hygiene 03-Partial/moderate assistance C. Toileting hygiene 03-Partial/moderate assistance E. Shower/bathe self 03-Partial/moderate assistance F. Upper body dressing 03-Partial/moderate assistance G. Lower body dressing 03-Partial/moderate assistance H. Putting on/taking off footwear 88-Not attempted due to medical condition or safety concerns - Mobility A. Roll left and right 03-Partial/moderate assistance B. Sit to lying 03-Partial/moderate assistance C. Lying to sitting on side of bed 03-Partial/moderate assistance D. Sit to stand 03-Partial/moderate assistance E. Chair/nhg-ro-hnpjo transfer 03-Partial/moderate assistance F. Toilet transfer 03-Partial/moderate assistance G. Car transfer 88-Not attempted due to medical condition or safety concerns I. Walk 10 feet 88-Not attempted due to medical condition or safety concerns J. Walk 50 feet with two turns 88-Not attempted due to medical condition or safety concerns K. Walk 150 feet 88-Not attempted due to medical condition or safety concerns L. Walking 10 feet on uneven surfaces 88-Not attempted due to medical condition or safety concerns M. 1 step (curb) 88-Not attempted due to medical condition or safety concerns N. 4 steps 88-Not attempted due to medical condition or safety concerns O. 12 steps 88-Not attempted due to medical condition or safety concerns P. Picking up object 88-Not attempted due to medical condition or safety concerns R. Wheel 50 feet with two turns 88-Not attempted due to medical condition or safety concerns S. Wheel 150 feet 88-Not attempted due to medical condition or safety concerns - Bladder and Bowel Bladder continence Bowel continence - Endurance Good - Balance Good - Safety Awareness Good CURRENT FUNC. 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
[2019-12-23] MEDS: ATORVASTATIN 80 MG TAB PO SCH (19:46)
--- NOTE | 2019-12-23 20:52 | P.PN ---
Subjective Date of Service: 12/23/19 Chief Complaint: DOING GOOD. Subjective: Improving SP HIP FRACTURE,HERE FOR PT. STABLE. NO CHANGES. FEELS GOOD. NO CHANGES. HAS NO UTI SYMPTOMS. HAS NO FEVER. HE SHOWS NO SIGN OF BLEEDING FROM GI TRACT. HE IS STABLE , HAS NO COMPLAINTS. NO CHANGES, HE REMEMBERS HE HAD SEEN DR MELENDEZ BEFORE. NO BLOOD IN STOOL. STABLE, GETTING BETTER. Review of Systems 10-point ROS is otherwise unremarkable Physical Examination - Vital Signs Temperature: 97.9 F Blood Pressure: 112/62 Pulse: 78 Respirations: 18 Pulse Ox (%): 96 - Physical Exam General: Alert, In no apparent distress HEENT: Atraumatic, PERRLA, EOMI Neck: Supple, JVD not distended Respiratory: Clear to auscultation bilaterally, Normal air movement Cardiovascular: Regular rate/rhythm, Normal S1 S2 Gastrointestinal: Normal bowel sounds, No tenderness Musculoskeletal: No tenderness Integumentary: No rashes Neurological: Normal speech, Normal tone, Normal affect Lymphatics: No axilla or inguinal lymphadenopathy - Studies Medications List Reviewed: Yes Assessment And Plan - Current Problems (Diagnosis) (1) Closed right hip fracture Current Visit: No Status: Acute Plan: CONT PT . FALL PREC. RESUME XARELTO 10 MG. HOPEFULLY WILL TOLERATE. NO CHANGES. MEDS REVIEWED. Qualifiers: Encounter type: subsequent encounter (2) Diabetes type 2, controlled Onset Date: 03/05/17 Current Visit: No Status: Chronic Plan: FU ON LDL AND A1C DONE. (3) Anemia Current Visit: Yes Status: Acute Plan: HOLD AC WILL DO LAB EVERY OTHER DAY. NO ACUTE BLEEDING HE CAN SEE HIS GI DOCTOR [facility] DUENAS. ANEMIA CHARACTER IS OF CHRONIC DISEASE. LOW IRON, TIBC AND NORMAL FERRITIN. WILL FU. GIVE TWO UNITS OF PRBCS MDS IS THE REASON FOR ANEMIA. SHE HAS SEEN DR. MELENDEZ FOR IT 5 YEARS AGO. WILL FU HG RTNLY.
[2019-12-23 21:37] LABS: Albumin, (SPE) 2.6 g/dL (3.8-4.8); Alpha-1-Globulins 0.5 g/dL (0.2-0.3); Alpha-2-Globulins 0.6 g/dL (0.5-0.9); Gamma Globulins 0.6 g/dL (0.8-1.7); INTERPRETATION REPORT
[2019-12-24] MEDS: LEVOTHYROXINE SOD 0.05 MG TABLET PO SCH (06:22)
[2019-12-24] MEDS: ACETAMINOPHEN 500 MG TAB PO PRN (07:05)
[2019-12-24] MEDS: JUVEN PACKET PO SCH ×2 (07:54→19:14)
[2019-12-24] MEDS: FE SULF/FA/VIT B COMP & C TAB PO SCH (07:55)
[2019-12-24] MEDS: INSULIN GLARGINE 100 UNITS/ML SQ SCH ×2 (07:55→19:15)
[2019-12-24] MEDS: INSULIN -REGULAR HUMAN 50 UNIT/0.5 ML ML SQ SCH ×4 (07:56→20:22)
[2019-12-24] MEDS: CRANBERRY FRUIT EXTRACT 200 MG CAP PO SCH ×2 (07:57→19:13)
[2019-12-24] MEDS: FERROUS SULFATE 325 MG TAB PO SCH (07:57)
[2019-12-24] MEDS: RIVAROXABAN 10 MG TABLET PO SCH (07:57)
[2019-12-24] MEDS: FINASTERIDE 5 MG TAB PO SCH (07:57)
[2019-12-24] MEDS: CLOPIDOGREL 75 MG TABLET PO SCH (07:57)
[2019-12-24] MEDS: DOCUSATE NA 100 MG CAP PO SCH ×2 (07:57→19:13)
[2019-12-24] MEDS: TRAMADOL HCL 50 MG TAB PO PRN ×3 (07:58→19:13)
[2019-12-24] MEDS: VALSARTAN 80 MG TAB PO SCH (08:00)
[2019-12-24] MEDS: LIDOCAINE 4% PATCH TOP SCH (09:12)
[2019-12-24] MEDS: POLYETHYL GLY 3350 17 GM/DOSE PO PRN (15:21)
--- NOTE | 2019-12-24 15:56 | FAST ---
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 Gopal Merrill M.D. ADMISSION DIAGNOSIS: - Orthopaedic Disorders 08 - Unilateral Hip Fracture (08.11) RIGHT HIP FRACTURE. EATING: EATING - STEP 1: Does the patient complete the activity by him/herself with no assistance (physical, verbal/nonverbal cueing, setup/clean-up)? No. EATING - STEP 2: Does the patient need only setup/clean-up assistance from one helper? Yes. 1. [id number] ADMISSION PERFORMANCE: Setup or clean-up assistance CODE: 05 ORAL HYGIENE: ORAL HYGIENE - STEP 1: Does the patient complete the activity by him/herself with no assistance (physical, verbal/nonverbal cueing, setup/clean-up)? No. ORAL HYGIENE - STEP 2: Does the patient need only setup/clean-up assistance from one helper? Yes. 1. [id number] ADMISSION PERFORMANCE: Setup or clean-up assistance CODE: 05 TOILETING HYGIENE: TOILETING HYGIENE - STEP 1: Does the patient complete the activity by him/herself with no assistance (physical, verbal/nonverbal cueing, setup/clean-up)? No. TOILETING HYGIENE - STEP 2: Does the patient need only setup/clean-up assistance from one helper? No. TOILETING HYGIENE - STEP 3: Does the patient need only verbal/nonverbal cueing or touching/steadying/contact guard assistance fro m one helper? Yes. 1. [id number] ADMISSION PERFORMANCE: Supervision or touching assistance CODE: 04 BATHING: Not assessed/no information CODE: - DRESSING - UPPER BODY: DRESSING - UPPER BODY - STEP 1: Does the patient complete the activity by him/herself with no assistance (physical, verbal/nonverbal cueing, setup/clean-up)? No. DRESSING - UPPER BODY - STEP 2: Does the patient need only setup/clean-up assistance from one helper? No. DRESSING - UPPER BODY - STEP 3: Does the patient need only verbal/nonverbal cueing or touching/steadying/contact guard assistance fro m one helper? Yes. 1. [id number] ADMISSION PERFORMANCE: Supervision or touching assistance CODE: 04 DRESSING - LOWER BODY: DRESSING - LOWER BODY - STEP 1: Does the patient complete the activity by him/herself with no assistance (physical, verbal/nonverbal cueing, setup/clean-up)? No. DRESSING - LOWER BODY - STEP 2: Does the patient need only setup/clean-up assistance from one helper? No. DRESSING - LOWER BODY - STEP 3: Does the patient need only verbal/nonverbal cueing or touching/steadying/contact guard assistance fro m one helper? No. DRESSING - LOWER BODY - STEP 4: Does the patient need physical assistance - for example lifting or trunk support from one helper - wi th the helper providing less than half of the effort? Yes. 1. [id number] ADMISSION PERFORMANCE: Partial/moderate assistance CODE: 03 PUTTING ON/TAKING OFF FOOTWEAR: FOOTWEAR - STEP 1: Does the patient complete the activity by him/herself with no assistance (physical, verbal/nonverbal cueing, setup/clean-up)? No. FOOTWEAR - STEP 2: Does the patient need only setup/clean-up assistance from one helper? No. FOOTWEAR - STEP 3: Does the patient need only verbal/nonverbal cueing or touching/steadying/contact guard assistance fro m one helper? No. FOOTWEAR - STEP 4: Does the patient need physical assistance - for example lifting or trunk support from one helper - wi th the helper providing less than half of the effort? Yes. 1. [id number] ADMISSION PERFORMANCE: Partial/moderate assistance CODE: 03 SIT TO LYING: SIT TO LYING - STEP 1: Does the patient complete the activity by him/herself with no assistance (physical, verbal/nonverbal cueing, setup/clean-up)? No. SIT TO LYING - STEP 2: Does the patient need only setup/clean-up assistance from one helper? No. SIT TO LYING - STEP 3: Does the patient need only verbal/nonverbal cueing or touching/steadying/contact guard assistance fro m one helper? Yes. 1. [id number] ADMISSION PERFORMANCE: Supervision or touching assistance CODE: 04 LYING TO SITTING: LYING TO SITTING ON SIDE OF BED - STEP 1: Does the patient complete the activity by him/herself with no assistance (physical, verbal/nonverbal cueing, setup/clean-up)? No. LYING TO SITTING ON SIDE OF BED - STEP 2: Does the patient need only setup/clean-up assistance from one helper? No. LYING TO SITTING ON SIDE OF BED - STEP 3: Does the patient need only verbal/nonverbal cueing or touching/steadying/contact guard assistance fro m one helper? Yes. 1. [id number] ADMISSION PERFORMANCE: Supervision or touching assistance CODE: 04 SIT TO STAND: SIT TO STAND - STEP 1: Does the patient complete the activity by him/herself with no assistance (physical, verbal/nonverbal cueing, setup/clean-up)? No. SIT TO STAND - STEP 2: Does the patient need only setup/clean-up assistance from one helper? No. SIT TO STAND - STEP 3: Does the patient need only verbal/nonverbal cueing or touching/steadying/contact guard assistance fro m one helper? Yes. 1. [id number] ADMISSION PERFORMANCE: Supervision or touching assistance CODE: 04 TRANSFERS: BED, CHAIR: CHAIR/[id number] TRANSFER - STEP 1: Does the patient complete the activity by him/herself with no assistance (physical, verbal/nonverbal cueing, setup/clean-up)? No. CHAIR/[id number] TRANSFER - STEP 2: Does the patient need only setup/clean-up assistance from one helper? No. CHAIR/[id number] TRANSFER - STEP 3: Does the patient need only verbal/nonverbal cueing or touching/steadying/contact guard assistance fro m one helper? Yes. 1. [id number] ADMISSION PERFORMANCE: Supervision or touching assistance CODE: 04 TRANSFER TOILET: TOILET TRANSFER - STEP 1: Does the patient complete the activity by him/herself with no assistance (physical, verbal/nonverbal cueing, setup/clean-up)? No. TOILET TRANSFER - STEP 2: Does the patient need only setup/clean-up assistance from one helper? No. TOILET TRANSFER - STEP 3: Does the patient need only verbal/nonverbal cueing or touching/steadying/contact guard assistance fro m one helper? Yes. 1. [id number] ADMISSION PERFORMANCE: Supervision or touching assistance CODE: 04 TRANSFERS: CAR: Not assessed/no information CODE: - WALK 10 FEET: Not assessed/no information CODE: - 1 STEP (CURB): Not assessed/no information CODE: - PICKING UP OBJECT: Not assessed/no information CODE: - DOES THE PATIENT USE A WHEELCHAIR/SCOOTER? Q1. DOES THE PATIENT USE A WHEELCHAIR/SCOOTER?: Yes CODE: 1 WHEEL 50 FEET WITH TWO TURNS: WHEEL 50 FEET WITH TWO TURNS - STEP 1: Does the patient complete the activity by him/herself with no assistance (physical, verbal/nonverbal cueing, setup/clean-up)? No. WHEEL 50 FEET WITH TWO TURNS - STEP 2: Does the patient need only setup/clean-up assistance from one helper? No. WHEEL 50 FEET WITH TWO TURNS - STEP 3: Does the patient need only verbal/nonverbal cueing or touching/steadying/contact guard assistance fro m one helper? Yes. 1. [id number] ADMISSION PERFORMANCE: Supervision or touching assistance CODE: 04 INDICATE THE TYPE OF WHEELCHAIR/SCOOTER USED: RR1. INDICATE THE TYPE OF WHEELCHAIR/SCOOTER USED.: Manual CODE: 1 WHEEL 150 FEET: WHEEL 150 FEET - STEP 1: Does the patient complete the activity by him/herself with no assistance (physical, verbal/nonverbal cueing, setup/clean-up)? No. WHEEL 150 FEET - STEP 2: Does the patient need only setup/clean-up assistance from one helper? No. WHEEL 150 FEET - STEP 3: Does the patient need only verbal/nonverbal cueing or touching/steadying/contact guard assistance fro m one helper? Yes. 1. [id number] ADMISSION PERFORMANCE: Supervision or touching assistance CODE: 04 INDICATE THE TYPE OF WHEELCHAIR/SCOOTER USED: SS1. INDICATE THE TYPE OF WHEELCHAIR/SCOOTER USED.: Manual CODE: 1 BLADDER AND BOWEL: H350. BLADDER CONTINENCE (3-DAY ASSESSMENT PERIOD): Incontinent daily (at least once a day) CODE: 3 H400. BOWEL CONTINENCE (3-DAY ASSESSMENT PERIOD): Always continent CODE: 0 SIGNATURE PANEL: The following modified sections: 1. [id number] Admission Performance, 1. [id number] Admission Performance, 1. [id number] Admission Performance, 1. [id number] Admission Performance, 1. [id number] Admission Performance, 1. [id number] Admission Performance, 1. [id number] Admission Performance, 1. [id number] Admission Performance , 1. [id number] Admission Performance, 1. [id number] Admission Performance, 1. [id number] Admission Performanc e, Q1. Does the patient use a wheelchair/scooter?, 1. [id number] Admission Performance, RR1. Indicate th e type of wheelchair/scooter used., 1. [id number] Admission Performance, Code, SS1. Indicate the type of wheelchair/scooter used., H400. Bowel Continence (3-day assessment period), H350. Bladder Continence (3-day assessment period) were [electronically] signed by Najma BenavidezNTraci on SunDec 24 2019 15 :55:39 GMT-0600 (Central Standard Time)
--- NOTE | 2019-12-24 18:11 | P.PN ---
Subjective Date of Service: 12/24/19 Chief Complaint: DOING GOOD. Subjective: Improving SP HIP FRACTURE,HERE FOR PT. STABLE. NO CHANGES. FEELS GOOD. NO CHANGES. HAS NO UTI SYMPTOMS. HAS NO FEVER. HE SHOWS NO SIGN OF BLEEDING FROM GI TRACT. HE IS STABLE , HAS NO COMPLAINTS. NO CHANGES, HE REMEMBERS HE HAD SEEN DR MELENDEZ BEFORE. NO BLOOD IN STOOL. STABLE, GETTING BETTER. Review of Systems 10-point ROS is otherwise unremarkable Physical Examination - Vital Signs Temperature: 98.7 F Blood Pressure: 106/66 Pulse: 76 Respirations: 16 Pulse Ox (%): 95 - Physical Exam General: Alert, In no apparent distress HEENT: Atraumatic, PERRLA, EOMI Neck: Supple, JVD not distended Respiratory: Clear to auscultation bilaterally, Normal air movement Cardiovascular: Regular rate/rhythm, Normal S1 S2 Gastrointestinal: Normal bowel sounds, No tenderness Musculoskeletal: No tenderness Integumentary: No rashes Neurological: Normal speech, Normal tone, Normal affect Lymphatics: No axilla or inguinal lymphadenopathy - Studies Medications List Reviewed: Yes Assessment And Plan - Current Problems (Diagnosis) (1) Closed right hip fracture Current Visit: No Status: Acute Plan: CONT PT . FALL PREC. RESUME XARELTO 10 MG. HOPEFULLY WILL TOLERATE. NO CHANGES. MEDS REVIEWED. Qualifiers: Encounter type: subsequent encounter (2) Diabetes type 2, controlled Onset Date: 03/05/17 Current Visit: No Status: Chronic Plan: FU ON LDL AND A1C DONE. GLUCOSE 160-200 QUYEN ADJUSE DOSES. (3) Anemia Current Visit: Yes Status: Acute Plan: HOLD AC WILL DO LAB EVERY OTHER DAY. NO ACUTE BLEEDING HE CAN SEE HIS GI DOCTOR [facility] DUENAS. ANEMIA CHARACTER IS OF CHRONIC DISEASE. LOW IRON, TIBC AND NORMAL FERRITIN. WILL FU. GIVE TWO UNITS OF PRBCS MDS IS THE REASON FOR ANEMIA. SHE HAS SEEN DR. MELENDEZ FOR IT 5 YEARS AGO. WILL FU HG RTNLY.
--- NOTE | 2019-12-24 19:36 | R.PN ---
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 Pt denied any Shortness of Breath. WBC 7.6, Hgb 10.5, Plt 173, glucose 166 to 184, prealbumin 8.6. Xarelto was D/Emeka. He is using SCDs. UA esterase 3+, WBC TNTC. Ambulated 550' with contact guard to standby assistance using a rolling walker. VITAL SIGNS Temperature: 98.7 F SBP/DBP: 106/66 Pulse: 76 Resp: 16 MEDICATION ALLERGIES: No Known Drug Allergies (NKDA) ENVIRONMENTAL ALLERGIES: - Substance Allergies None Known - Other Allergies None Known NURSING: - Shower allowing shower - Skin care per protocol PRECAUTIONS: - Anterior Hip Precaution No abduction No active extension No adduction across midline No external rotation No hip flexion >90 degrees No internal rotation - Posterior Hip Precaution No adduction across midline No external rotation No hip flexion >90 degrees No internal rotation No wheel chair propulsion - Weight Bearing Precaution WBAT right LE ACTIVITIES OOB only with supervision THERAPIES: - Dietary and Nutrition Adequate Nutrition. Nutritional Education. Nutritional Supplements. PHYSICAL EXAM - Gen Alert and awake Lying in bed No apparent distress Oriented to: person, time, and place - Skin No breakdown Normacephalic - Eyes No abnormalities - ENMT No abnormalities - Neck No abnormalities - CVS RRR - Chest No abnormalities - Resp Clear to auscultation - Abd Soft - GI + bowel sounds Deferred - No abnormalities - Ext Right hip surgical site has good hemostasis. - MSK 4+/5 weakness in right lower extremity - Neuro 4/5 strength right lower extremity. - Psych No abnormalities ASSESSMENT: Pt. is a 84 yo Right-handed male of unknown race.On 12/11/2019 he was admitted to [facility] with diagnosis RIGHT HIP FRACTURE.His impairment category is Orthopaedic Disorders 08 - Unilate ral Hip Fracture (08.11).Pre-morbidly, Pt. was independent/mod-I in Safety Awareness, Self-Care, and Communication; and he had good Sphincter Control, Transfers Control, and Locomotion.Currently, he has deficits of Endurance, Safety Awareness, Locomotion, Balance, and Sphincter Control.Pt. is now refer red to [facility] for acute in-patient rehabilitation in order to maximize pat ient's functional independence in activities of daily living, strength, ROM, and mobility.- Rehab Tutu l Patient has realistic goal of being discharged at assistance level 7-Ind to reside at Home with Fami ly/Relatives. MDM/PLAN: - Physical Therapy Decreased range of motion - to improve, our physical therapists will perform initial evaluation of p t's status upon admission and devise an individualized program for increasing patient's Range of Andrey on. Need for home safety evaluation - to improve, our physical therapists will perform initial evaluatio n of pt's status upon admission and devise an individualized program for Home Evaluation Need in caregiver upon discharge - to improve, our physical therapists will perform initial evaluati on of pt's status upon admission and devise an individualized program for Caregiver Training New precaution - to improve, our physical therapists will perform initial evaluation of pt's status upon admission and devise an individualized program for Patient precaution education Poor balance - to improve, our physical therapists will perform initial evaluation of pt's status up on admission and devise an individualized program for Balance Training Poor endurance - to improve, our physical therapists will perform initial evaluation of pt's status upon admission and devise an individualized program for Endurance Training Achieving independence - to improve, our physical therapists will perform initial evaluation of pt's status upon admission and devise an individualized program for Community Reintegration Activities - Occupational Therapy Need for career development director - to improve, our occupation therapists will perform initial evaluation of pt's status upon admission and devise an individualized program for Caregiver Training - Other See attached MAR (Medication Administration Record) - Anterior Hip Precaution No abduction No active extension No adduction across midline No external rotation No hip flexion >90 degrees No internal rotation - Diet - Liquid Texture Continue Regular - Tube Feed Continue N/A - Diet Type Continue Regular - Posterior Hip Precaution No adduction across midline No external rotation No hip flexion >90 degrees No internal rotation No wheel chair propulsion - Weight Bearing Precaution WBAT right LE - Skin care per protocol - Diet - Solid Texture Continue Regular - Shower allowing shower FUNCTIONAL STATUS: UPDATED AT WEEKLY TEAM CONFERENCE - Bladder Same accident frequency: 7-Ind - No accidents in the past 7 days - Bowel Same accident frequency: 7-Ind - No accidents in the past 7 days - Walking Same score based on distance walked: 0(N/A) Same score based on distance walked: 1(<=50ft) - Wheelchair Same score based on distance traveled: 0(N/A) FUNCTIONAL STATUS: - Self-Care A. Eating Shashi B. Grooming Shashi C. Bathing sup D. Dressing - Upper sup E. Dressing - Lower Abril F. Toileting Abril - Sphincter Control G. Bladder control sup H. Bowel control sup - Transfers Control I. Bed/Chair/Wheelchair sup J. Toilet sup K. Tub/Shower Abril - Locomotion L. Walk/Wheelchair (B) Abril M. Stairs modA - Communication N. Comprehension (B) Shashi O. Expression (B) Shashi - Social Cognition P. Social Interaction Shashi Q. Problem Solving Shashi R. Memory Shashi - Endurance Fair - Balance Fair - Safety Awareness Fair QI SCORES: - Self-Care A. Eating 03-Partial/moderate assistance B. Oral hygiene 03-Partial/moderate assistance C. Toileting hygiene 03-Partial/moderate assistance E. Shower/bathe self 03-Partial/moderate assistance F. Upper body dressing 03-Partial/moderate assistance G. Lower body dressing 03-Partial/moderate assistance H. Putting on/taking off footwear 88-Not attempted due to medical condition or safety concerns - Mobility A. Roll left and right 03-Partial/moderate assistance B. Sit to lying 03-Partial/moderate assistance C. Lying to sitting on side of bed 03-Partial/moderate assistance D. Sit to stand 03-Partial/moderate assistance E. Chair/dao-oq-mbyqe transfer 03-Partial/moderate assistance F. Toilet transfer 03-Partial/moderate assistance G. Car transfer 88-Not attempted due to medical condition or safety concerns I. Walk 10 feet 88-Not attempted due to medical condition or safety concerns J. Walk 50 feet with two turns 88-Not attempted due to medical condition or safety concerns K. Walk 150 feet 88-Not attempted due to medical condition or safety concerns L. Walking 10 feet on uneven surfaces 88-Not attempted due to medical condition or safety concerns M. 1 step (curb) 88-Not attempted due to medical condition or safety concerns N. 4 steps 88-Not attempted due to medical condition or safety concerns O. 12 steps 88-Not attempted due to medical condition or safety concerns P. Picking up object 88-Not attempted due to medical condition or safety concerns R. Wheel 50 feet with two turns 88-Not attempted due to medical condition or safety concerns S. Wheel 150 feet 88-Not attempted due to medical condition or safety concerns - Bladder and Bowel Bladder continence Bowel continence - Endurance Good - Balance Good - Safety Awareness Good CURRENT FUNC. 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
[2019-12-24] MEDS: ATORVASTATIN 80 MG TAB PO SCH (20:20)
[2019-12-25 06:23] LABS: Absolute Lymphocytes (CBC) 1.4 K/uL (0.7-4.9); Basophils % 1.1 % (0-1.3); Hematocrit 29.2 % (39.6-49.0); Lymphocytes % 19.2 % (15.3-44.8); MPV 8.4 fL (7.6-11.3); RBC Red Blood Cell Count 3.41 M/uL (4.33-5.43)
[2019-12-25 06:41] LABS: BUN Blood Urea Nitrogen 18 mg/dL (7-18); Bicarbonate 31 mmol/L (21-32); Glucose Level 156 mg/dL (74-106); Potassium 4.5 mmol/L (3.5-5.1); Sodium Level 134 mmol/L (136-145)
[2019-12-25 06:42] LABS: Prealbumin 14.9 mg/dL (20-40)
[2019-12-25 07:14] LABS: White Blood Cell Scan OK (OK)
[2019-12-25 07:15] LABS: Blood Morphology Comment NOT SEEN (NOT SEEN); Platelet Estimate ADEQ
[2019-12-25] MEDS: LEVOTHYROXINE SOD 0.05 MG TABLET PO SCH (07:31)
[2019-12-25] MEDS: VALSARTAN 80 MG TAB PO SCH (08:00)
[2019-12-25] MEDS: LIDOCAINE 4% PATCH TOP SCH (08:04)
[2019-12-25] MEDS: INSULIN -REGULAR HUMAN 50 UNIT/0.5 ML ML SQ SCH ×4 (08:04→20:07)
[2019-12-25] MEDS: CRANBERRY FRUIT EXTRACT 200 MG CAP PO SCH ×2 (08:05→19:32)
[2019-12-25] MEDS: FERROUS SULFATE 325 MG TAB PO SCH (08:05)
[2019-12-25] MEDS: DOCUSATE NA 100 MG CAP PO SCH ×2 (08:05→19:32)
[2019-12-25] MEDS: CLOPIDOGREL 75 MG TABLET PO SCH (08:05)
[2019-12-25] MEDS: RIVAROXABAN 10 MG TABLET PO SCH (08:05)
[2019-12-25] MEDS: INSULIN GLARGINE 100 UNITS/ML SQ SCH ×2 (08:06→19:33)
[2019-12-25] MEDS: FINASTERIDE 5 MG TAB PO SCH (08:06)
[2019-12-25] MEDS: FE SULF/FA/VIT B COMP & C TAB PO SCH (08:07)
[2019-12-25] MEDS: JUVEN PACKET PO SCH ×2 (08:07→19:32)
[2019-12-25] MEDS: TRAMADOL HCL 50 MG TAB PO PRN ×2 (12:46→17:08)
--- NOTE | 2019-12-25 17:03 | R.PN ---
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 Pt denied any Shortness of Breath. WBC 7.4, Hgb 10.3, Plt 173, glucose 160 to 221, prealbumin 14.9. Xarelto was D/Emeka. He is using SCDs . UA esterase 3+, WBC TNTC. Self-propelled wheelchair 300' with manual resistance. VITAL SIGNS Temperature: 98.0 F SBP/DBP: 99/58 Pulse: 70 Resp: 16 MEDICATION ALLERGIES: No Known Drug Allergies (NKDA) ENVIRONMENTAL ALLERGIES: - Substance Allergies None Known - Other Allergies None Known NURSING: - Shower allowing shower - Skin care per protocol PRECAUTIONS: - Anterior Hip Precaution No abduction No active extension No adduction across midline No external rotation No hip flexion >90 degrees No internal rotation - Posterior Hip Precaution No adduction across midline No external rotation No hip flexion >90 degrees No internal rotation No wheel chair propulsion - Weight Bearing Precaution WBAT right LE ACTIVITIES OOB only with supervision THERAPIES: - Dietary and Nutrition Adequate Nutrition. Nutritional Education. Nutritional Supplements. PHYSICAL EXAM - Gen Alert and awake Lying in bed No apparent distress Oriented to: person, time, and place - Skin No breakdown Normacephalic - Eyes No abnormalities - ENMT No abnormalities - Neck No abnormalities - CVS RRR - Chest No abnormalities - Resp Clear to auscultation - Abd Soft - GI + bowel sounds Deferred - No abnormalities - Ext Right hip surgical site has good hemostasis. - MSK 4+/5 weakness in right lower extremity - Neuro 4/5 strength right lower extremity. - Psych No abnormalities ASSESSMENT: Pt. is a 84 yo Right-handed male of unknown race.On 12/11/2019 he was admitted to [facility] with diagnosis RIGHT HIP FRACTURE.His impairment category is Orthopaedic Disorders 08 - Unilate ral Hip Fracture (08.11).Pre-morbidly, Pt. was independent/mod-I in Safety Awareness, Self-Care, and Communication; and he had good Sphincter Control, Transfers Control, and Locomotion.Currently, he has deficits of Endurance, Safety Awareness, Locomotion, Balance, and Sphincter Control.Pt. is now refer red to [facility] for acute in-patient rehabilitation in order to maximize pat cadennt's functional independence in activities of daily living, strength, ROM, and mobility.- Rehab Goa l Patient has realistic goal of being discharged at assistance level 7-Ind to reside at Home with Fami ly/Relatives. MDM/PLAN: - Physical Therapy Decreased range of motion - to improve, our physical therapists will perform initial evaluation of p t's status upon admission and devise an individualized program for increasing patient's Range of Andrey on. Need for home safety evaluation - to improve, our physical therapists will perform initial evaluatio n of pt's status upon admission and devise an individualized program for Home Evaluation Need in caregiver upon discharge - to improve, our physical therapists will perform initial evaluati on of pt's status upon admission and devise an individualized program for Caregiver Training New precaution - to improve, our physical therapists will perform initial evaluation of pt's status upon admission and devise an individualized program for Patient precaution education Poor balance - to improve, our physical therapists will perform initial evaluation of pt's status up on admission and devise an individualized program for Balance Training Poor endurance - to improve, our physical therapists will perform initial evaluation of pt's status upon admission and devise an individualized program for Endurance Training Achieving independence - to improve, our physical therapists will perform initial evaluation of pt's status upon admission and devise an individualized program for Community Reintegration Activities - Occupational Therapy Need for family day care provider - to improve, our occupation therapists will perform initial evaluation of pt's status upon admission and devise an individualized program for Caregiver Training - Other See attached MAR (Medication Administration Record) - Anterior Hip Precaution No abduction No active extension No adduction across midline No external rotation No hip flexion >90 degrees No internal rotation - Diet - Liquid Texture Continue Regular - Tube Feed Continue N/A - Diet Type Continue Regular - Posterior Hip Precaution No adduction across midline No external rotation No hip flexion >90 degrees No internal rotation No wheel chair propulsion - Weight Bearing Precaution WBAT right LE - Skin care per protocol - Diet - Solid Texture Continue Regular - Shower allowing shower FUNCTIONAL STATUS: UPDATED AT WEEKLY TEAM CONFERENCE - Bladder Same accident frequency: 7-Ind - No accidents in the past 7 days - Bowel Same accident frequency: 7-Ind - No accidents in the past 7 days - Walking Same score based on distance walked: 0(N/A) Same score based on distance walked: 1(<=50ft) - Wheelchair Same score based on distance traveled: 0(N/A) FUNCTIONAL STATUS: - Self-Care A. Eating Shashi B. Grooming Shashi C. Bathing sup D. Dressing - Upper sup E. Dressing - Lower Abril F. Toileting Abril - Sphincter Control G. Bladder control sup H. Bowel control sup - Transfers Control I. Bed/Chair/Wheelchair sup J. Toilet sup K. Tub/Shower Abril - Locomotion L. Walk/Wheelchair (B) Abril M. Stairs modA - Communication N. Comprehension (B) Shashi O. Expression (B) Shashi - Social Cognition P. Social Interaction Shashi Q. Problem Solving Shashi R. Memory Shashi - Endurance Fair - Balance Fair - Safety Awareness Fair QI SCORES: - Self-Care A. Eating 03-Partial/moderate assistance B. Oral hygiene 03-Partial/moderate assistance C. Toileting hygiene 03-Partial/moderate assistance E. Shower/bathe self 03-Partial/moderate assistance F. Upper body dressing 03-Partial/moderate assistance G. Lower body dressing 03-Partial/moderate assistance H. Putting on/taking off footwear 88-Not attempted due to medical condition or safety concerns - Mobility A. Roll left and right 03-Partial/moderate assistance B. Sit to lying 03-Partial/moderate assistance C. Lying to sitting on side of bed 03-Partial/moderate assistance D. Sit to stand 03-Partial/moderate assistance E. Chair/pba-kx-qiflf transfer 03-Partial/moderate assistance F. Toilet transfer 03-Partial/moderate assistance G. Car transfer 88-Not attempted due to medical condition or safety concerns I. Walk 10 feet 88-Not attempted due to medical condition or safety concerns J. Walk 50 feet with two turns 88-Not attempted due to medical condition or safety concerns K. Walk 150 feet 88-Not attempted due to medical condition or safety concerns L. Walking 10 feet on uneven surfaces 88-Not attempted due to medical condition or safety concerns M. 1 step (curb) 88-Not attempted due to medical condition or safety concerns N. 4 steps 88-Not attempted due to medical condition or safety concerns O. 12 steps 88-Not attempted due to medical condition or safety concerns P. Picking up object 88-Not attempted due to medical condition or safety concerns R. Wheel 50 feet with two turns 88-Not attempted due to medical condition or safety concerns S. Wheel 150 feet 88-Not attempted due to medical condition or safety concerns - Bladder and Bowel Bladder continence Bowel continence - Endurance Good - Balance Good - Safety Awareness Good CURRENT FUNC. 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
[2019-12-25] MEDS: ACETAMINOPHEN 500 MG TAB PO PRN (19:32)
[2019-12-25] MEDS: ATORVASTATIN 80 MG TAB PO SCH (20:07)
--- NOTE | 2019-12-25 21:07 | P.PN ---
Subjective Date of Service: 12/25/19 Chief Complaint: DOING GOOD. Subjective: Improving SP HIP FRACTURE,HERE FOR PT. STABLE. NO CHANGES. FEELS GOOD. NO CHANGES. HAS NO UTI SYMPTOMS. HAS NO FEVER. HE SHOWS NO SIGN OF BLEEDING FROM GI TRACT. HE IS STABLE , HAS NO COMPLAINTS. NO CHANGES, HE REMEMBERS HE HAD SEEN DR MELENDEZ BEFORE. NO BLOOD IN STOOL. STABLE, GETTING BETTER. NO CHANGES, FEELS WELL. Physical Examination - Vital Signs Temperature: 98.2 F Blood Pressure: 122/64 Pulse: 83 Respirations: 16 Pulse Ox (%): 96 - Physical Exam General: Alert, In no apparent distress HEENT: Atraumatic, PERRLA, EOMI Neck: Supple, JVD not distended Respiratory: Clear to auscultation bilaterally, Normal air movement Cardiovascular: Regular rate/rhythm, Normal S1 S2 Gastrointestinal: Normal bowel sounds, No tenderness Musculoskeletal: No tenderness Integumentary: No rashes Neurological: Normal speech, Normal tone, Normal affect Lymphatics: No axilla or inguinal lymphadenopathy - Studies Laboratory Data (last 24 hrs) 12/25/19 06:08: Sodium 134 L, Potassium 4.5, BUN 18, Creatinine 0.72, Glucose 156 H 12/25/19 06:08: WBC 7.4, Hgb 10.3 L, Hct 29.2 L, Plt Count 173 12/25/19 06:08: Magnesium 2.1 Microbiology Data (last 24 hrs): 12/25/19 09:00 Stool Occult Blood - Final Medications List Reviewed: Yes Assessment And Plan - Current Problems (Diagnosis) (1) Closed right hip fracture Current Visit: No Status: Acute Plan: CONT PT . FALL PREC. RESUME XARELTO 10 MG. HOPEFULLY WILL TOLERATE. NO CHANGES. MEDS REVIEWED. Qualifiers: Encounter type: subsequent encounter (2) Diabetes type 2, controlled Onset Date: 03/05/17 Current Visit: No Status: Chronic Plan: FU ON LDL AND A1C DONE. GLUCOSE 160-200 QUYEN ADJUSE DOSES. GLUOCSE HAS GONE UP. DIET IS NOT THE BES. (3) Anemia Current Visit: Yes Status: Acute Plan: HOLD AC WILL DO LAB EVERY OTHER DAY. NO ACUTE BLEEDING HE CAN SEE HIS GI DOCTOR DIVINE DUENAS. ANEMIA CHARACTER IS OF CHRONIC DISEASE. LOW IRON, TIBC AND NORMAL FERRITIN. WILL FU. GIVE TWO UNITS OF PRBCS MDS IS THE REASON FOR ANEMIA. SHE HAS SEEN DR. MELENDEZ FOR IT 5 YEARS AGO. WILL CAMILA BELLA RTNLSong.
[2019-12-26] MEDS: LEVOTHYROXINE SOD 0.05 MG TABLET PO SCH (06:34)
[2019-12-26] MEDS: INSULIN -REGULAR HUMAN 50 UNIT/0.5 ML ML SQ SCH ×4 (07:30→20:02)
[2019-12-26] MEDS: VALSARTAN 80 MG TAB PO SCH (08:00)
[2019-12-26] MEDS: TRAMADOL HCL 50 MG TAB PO PRN ×2 (08:10→12:42)
[2019-12-26] MEDS: JUVEN PACKET PO SCH ×2 (08:10→19:33)
[2019-12-26] MEDS: RIVAROXABAN 10 MG TABLET PO SCH (08:12)
[2019-12-26] MEDS: CRANBERRY FRUIT EXTRACT 200 MG CAP PO SCH ×2 (08:12→19:33)
[2019-12-26] MEDS: FINASTERIDE 5 MG TAB PO SCH (08:13)
[2019-12-26] MEDS: FERROUS SULFATE 325 MG TAB PO SCH (08:13)
[2019-12-26] MEDS: CLOPIDOGREL 75 MG TABLET PO SCH (08:13)
[2019-12-26] MEDS: DOCUSATE NA 100 MG CAP PO SCH ×2 (08:13→19:33)
[2019-12-26] MEDS: FE SULF/FA/VIT B COMP & C TAB PO SCH (08:13)
[2019-12-26] MEDS: INSULIN GLARGINE 100 UNITS/ML SQ SCH ×2 (08:47→19:33)
--- NOTE | 2019-12-26 10:00 | P.RH.PN ---
Estimated Length of Stay: 16 Expected Discharge Date: 12/30/19 Discharge Disposition Plan: Home Family Support: Yes Detention Goal: Mobility, Transfers, Self Care Vital Signs: Last Vital Signs Temp 98.3 F 12/26/19 06:20 Pulse 69 12/26/19 08:00 Resp 18 12/26/19 09:06 BP 107/60 12/26/19 08:00 Pulse Ox 95 12/26/19 09:06 Laboratory: Laboratory Last Values WBC 7.4 K/uL (4.3-10.9) 12/25/19 06:08 RBC 3.41 M/uL (4.33-5.43) L 12/25/19 06:08 Hgb 10.3 g/dL (13.6-17.9) L 12/25/19 06:08 Hct 29.2 % (39.6-49.0) L 12/25/19 06:08 MCV 85.7 fL (80-100) 12/25/19 06:08 MCH 30.1 pg (27.0-35.0) 12/25/19 06:08 MCHC 35.2 g/dL (32.0-36.0) 12/25/19 06:08 RDW 15.5 % (12.1-15.2) H 12/25/19 06:08 Plt Count 173 K/uL (152-406) 12/25/19 06:08 MPV 8.4 fL (7.6-11.3) 12/25/19 06:08 Neutrophils % 68.3 % (41.7-73.7) 12/25/19 06:08 Lymphocytes % 19.2 % (15.3-44.8) 12/25/19 06:08 Monocytes % 7.1 % (3.3-12.3) 12/25/19 06:08 Eosinophils % 4.3 % (0-4.4) 12/25/19 06:08 Basophils % 1.1 % (0-1.3) 12/25/19 06:08 Absolute Neutrophils 5.1 K/uL (1.8-8.0) 12/25/19 06:08 Segmented Neutrophils 71 % (40-80) 12/20/19 06:02 Band Neutrophils 3 % (0-1) H 12/20/19 06:02 Absolute Lymphocytes 1.4 K/uL (0.7-4.9) 12/25/19 06:08 Lymphocytes 17 % (15-42) 12/20/19 06:02 Monocytes 5 % (0-10) 12/20/19 06:02 Absolute Monocytes 0.5 K/uL (0.1-1.3) 12/25/19 06:08 Eosinophils 2 % (0-3) 12/20/19 06:02 Absolute Eosinophils 0.3 K/uL (0-0.5) 12/25/19 06:08 Absolute Basophils 0.1 K/uL (0-0.5) 12/25/19 06:08 Metamyelocytes 2 % (0-0) H 12/20/19 06:02 Platelet Estimate Adeq 12/25/19 06:08 Clumped Platelets Few 12/16/19 05:43 Morphology Comment Not seen (NOT SEEN) 12/25/19 06:08 Absolute Retic 0.08 M/uL (0.02-0.11) 12/19/19 06:02 Percent Retic 3.10 % (0.4-2.05) H 12/19/19 06:02 Sodium 134 mmol/L (136-145) L 12/25/19 06:08 Potassium 4.5 mmol/L (3.5-5.1) 12/25/19 06:08 Chloride 100 mmol/L (98-107) 12/25/19 06:08 Carbon Dioxide 31 mmol/L (21-32) 12/25/19 06:08 BUN 18 mg/dL (7-18) 12/25/19 06:08 Creatinine 0.72 mg/dL (0.55-1.3) 12/25/19 06:08 Estimated GFR > 90 mL/min (=/>90) 12/25/19 06:08 Glucose 156 mg/dL (74-106) H 12/25/19 06:08 POC Glucose 133 mg/dL (65-120) H 12/26/19 08:44 Calcium 8.7 mg/dL (8.5-10.1) 12/25/19 06:08 Magnesium 2.1 mg/dL (1.8-2.4) 12/25/19 06:08 Iron 36.0 ug/dL (65-175) L 12/19/19 06:02 TIBC 199 ug/dL (250-460) L 12/19/19 06:02 Transferrin 142 mg/dL (200-360) L 12/19/19 06:02 Transferrin % Sat 18.1 % (20.0-50.0) L 12/19/19 06:02 Ferritin 169.9 ng/mL (26-388) 12/19/19 06:02 Total Protein 4.7 g/dL (6.1-8.1) L 12/19/19 06:02 Albumin 3.0 g/dL (3.4-5.0) L 12/25/19 06:08 Prealbumin 14.9 mg/dL (20-40) L 12/25/19 06:08 Osxvb-8-[id number] 0.5 g/dL (0.2-0.3) H 12/19/19 06:02 Gnpkf-4-Xzxfagsds 0.6 g/dL (0.5-0.9) 12/19/19 06:02 Gamma Globulins 0.6 g/dL (0.8-1.7) L 12/19/19 06:02 M-Doug Report 12/19/19 06:02 M-Doug 2 LEAD SOFTWARE ARCHITECT 12/19/19 06:02 Abnorm Protein Band 3 LEAD SOFTWARE ARCHITECT 12/19/19 06:02 PEP Interpretation Report H 12/19/19 06:02 Vitamin B12 847 pg/mL (193-986) 12/19/19 06:02 Urine Color Yellow 12/19/19 07:30 Urine Appearance Clear 12/19/19 07:30 Urine pH 7.5 (5.0-7.0) H 12/19/19 07:30 Ur Specific [place] 1.015 (1.005-1.030) 12/19/19 07:30 Glucose (UA)(Auto) Negative (NEG) 12/19/19 07:30 Urine Ketones Negative (NEG) 12/19/19 07:30 Urine Blood Negative (NEG) 12/19/19 07:30 Urine Nitrite Negative (NEG) 12/19/19 07:30 Urine Bilirubin Negative (NEG) 12/19/19 07:30 Urine Urobilinogen 4.0 mg/dL (0.2-1.0) H 12/19/19 07:30 Ur Leukocyte Esterase 3+ (NEG) H 12/19/19 07:30 Urine RBC <5 /HPF (NONE SEEN) 12/19/19 07:30 Urine WBC >50 /HPF (<5) H 12/19/19 07:30 Ur Squamous Epith Cells 10-20 /HPF (NONE SEEN) H 12/19/19 07:30 Urine Bacteria <20 /HPF (NONE SEEN) 12/19/19 07:30 Hyaline Casts None seen /LPF (NONE SEEN) 12/19/19 07:30 Urine Mucus 2+ /HPF (NONE SEEN) 12/15/19 16:30 Urine Culture Reflexed Reflexed 12/19/19 07:30 Urine Total Protein Negative (NEG) 12/19/19 07:30 Smear Scan Ok (OK) 12/25/19 06:08 ABO/Rh A NEGATIVE 12/19/19 07:52 Solid Phase Ab Screen Negative 12/19/19 07:52 Crossmatch See Detail 12/19/19 07:52 Weight: 204 lb Wound Present: No Closed Surgical Incision Present: Yes Negative Pressure Wound Therapy Present: No Physician Update: His glucose was elevated to [address] Voss already increased insulin to 30 units bid. He has a lot of right groin pain. Will start baclofen 5 mg daily. Functional Improvement: pt is progressing well with his functional performance and balance; however, he is being limited by R groin pain. pt's R groin region seems guarded. Continued Skilled PT services are necessary to further improve functional abilities and reduce pain. Summary: Patient's care plan and intermission coordinator goals have been reviewed and revised as necessary. Please see the Rehabilitation Signature page for all necessary signatures.
[2019-12-26] MEDS: LIDOCAINE 4% PATCH TOP SCH (10:10)
[2019-12-26] MEDS: BACLOFEN 10 MG TAB PO SCH (12:02)
--- NOTE | 2019-12-26 17:03 | P.PN ---
Subjective Date of Service: 12/26/19 Chief Complaint: DOING GOOD. Subjective: Improving SP HIP FRACTURE,HERE FOR PT. STABLE. NO CHANGES. FEELS GOOD. NO CHANGES. HAS NO UTI SYMPTOMS. HAS NO FEVER. HE SHOWS NO SIGN OF BLEEDING FROM GI TRACT. HE IS STABLE , HAS NO COMPLAINTS. NO CHANGES, HE REMEMBERS HE HAD SEEN DR MELENDEZ BEFORE. NO BLOOD IN STOOL. STABLE, GETTING BETTER. NO CHANGES, FEELS WELL. Review of Systems 10-point ROS is otherwise unremarkable Neurological: Other (R LATERAL LOWER THIGH NUMBNESS ON SURGICAL SIDE. ) Physical Examination - Vital Signs Temperature: 98.3 F Blood Pressure: 107/60 Pulse: 69 Respirations: 18 Pulse Ox (%): 95 - Physical Exam General: Alert, In no apparent distress HEENT: Atraumatic, PERRLA, EOMI Neck: Supple, JVD not distended Respiratory: Clear to auscultation bilaterally, Normal air movement Cardiovascular: Regular rate/rhythm, Normal S1 S2 Gastrointestinal: Normal bowel sounds, No tenderness Musculoskeletal: No tenderness Integumentary: No rashes Neurological: Normal speech, Normal tone, Normal affect Lymphatics: No axilla or inguinal lymphadenopathy - Studies Microbiology Data (last 24 hrs): 12/25/19 09:00 Stool Occult Blood - Final Medications List Reviewed: Yes Assessment And Plan - Current Problems (Diagnosis) (1) Closed right hip fracture Current Visit: No Status: Acute Plan: CONT PT . FALL PREC. RESUME XARELTO 10 MG. HOPEFULLY WILL TOLERATE. NO CHANGES. MEDS REVIEWED. 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 Qualifiers: Encounter type: subsequent encounter (2) Diabetes type 2, controlled Onset Date: 03/05/17 Current Visit: No Status: Chronic Plan: FU ON LDL AND A1C DONE. GLUCOSE 160-200 QUYEN ADJUSE DOSES. GLUOCSE HAS GONE UP. DIET IS NOT THE BES. (3) Anemia Current Visit: Yes Status: Acute Plan: HOLD AC WILL DO LAB EVERY OTHER DAY. NO ACUTE BLEEDING HE CAN SEE HIS GI DOCTOR DIVINE DUENAS. ANEMIA CHARACTER IS OF CHRONIC DISEASE. LOW IRON, TIBC AND NORMAL FERRITIN. WILL FU. GIVE TWO UNITS OF PRBCS MDS IS THE REASON FOR ANEMIA. SHE HAS SEEN DR. MELENDEZ FOR IT 5 YEARS AGO. WILL FU HG RTNLY.
[2019-12-26] MEDS: ATORVASTATIN 80 MG TAB PO SCH (20:02)
[2019-12-27] MEDS: LEVOTHYROXINE SOD 0.05 MG TABLET PO SCH (06:51)
[2019-12-27] MEDS: INSULIN -REGULAR HUMAN 50 UNIT/0.5 ML ML SQ SCH ×5 (07:30→20:18)
[2019-12-27] MEDS: VALSARTAN 80 MG TAB PO SCH (08:00)
[2019-12-27] MEDS: CRANBERRY FRUIT EXTRACT 200 MG CAP PO SCH ×2 (08:45→20:17)
[2019-12-27] MEDS: DOCUSATE NA 100 MG CAP PO SCH ×2 (08:45→20:17)
[2019-12-27] MEDS: ACETAMINOPHEN 500 MG TAB PO PRN (08:46)
[2019-12-27] MEDS: BACLOFEN 10 MG TAB PO SCH (08:46)
[2019-12-27] MEDS: CLOPIDOGREL 75 MG TABLET PO SCH (08:46)
[2019-12-27] MEDS: RIVAROXABAN 10 MG TABLET PO SCH (08:46)
[2019-12-27] MEDS: LIDOCAINE 4% PATCH TOP SCH (08:47)
[2019-12-27] MEDS: FERROUS SULFATE 325 MG TAB PO SCH (08:47)
[2019-12-27] MEDS: FE SULF/FA/VIT B COMP & C TAB PO SCH (08:47)
[2019-12-27] MEDS: FINASTERIDE 5 MG TAB PO SCH (08:47)
[2019-12-27] MEDS: INSULIN GLARGINE 100 UNITS/ML SQ SCH ×2 (08:48→20:17)
[2019-12-27] MEDS: JUVEN PACKET PO SCH ×2 (09:00→20:00)
--- NOTE | 2019-12-27 16:58 | P.PN ---
Subjective Date of Service: 12/27/19 Chief Complaint: DOING GOOD. Subjective: Improving SP HIP FRACTURE,HERE FOR PT. STABLE. NO CHANGES. FEELS GOOD. NO CHANGES. HAS NO UTI SYMPTOMS. HAS NO FEVER. HE SHOWS NO SIGN OF BLEEDING FROM GI TRACT. HE IS STABLE , HAS NO COMPLAINTS. NO CHANGES, HE REMEMBERS HE HAD SEEN DR MELENDEZ BEFORE. NO BLOOD IN STOOL. STABLE, GETTING BETTER. NO CHANGES, FEELS WELL. HAS NO CHANGES. BF HAS PANCAKES AND CARVER IN FOOD DAILY. Review of Systems 10-point ROS is otherwise unremarkable Physical Examination - Vital Signs Temperature: 98.1 F Blood Pressure: 112/66 Pulse: 74 Respirations: 16 Pulse Ox (%): 99 - Physical Exam General: Alert, In no apparent distress HEENT: Atraumatic, PERRLA, EOMI Neck: Supple, JVD not distended Respiratory: Clear to auscultation bilaterally, Normal air movement Cardiovascular: Regular rate/rhythm, Normal S1 S2 Gastrointestinal: Normal bowel sounds, No tenderness Musculoskeletal: No tenderness Integumentary: No rashes Neurological: Normal speech, Normal tone, Normal affect Lymphatics: No axilla or inguinal lymphadenopathy - Studies Microbiology Data (last 24 hrs): 12/25/19 06:00 Nasopharnyx Coronavirus COVID-19 PCR - Final Medications List Reviewed: Yes Assessment And Plan - Current Problems (Diagnosis) (1) Closed right hip fracture Current Visit: No Status: Acute Plan: CONT PT . FALL PREC. RESUME XARELTO 10 MG. HOPEFULLY WILL TOLERATE. NO CHANGES. MEDS REVIEWED. 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 Qualifiers: Encounter type: subsequent encounter (2) Diabetes type 2, controlled Onset Date: 03/05/17 Current Visit: No Status: Chronic Plan: FU ON LDL AND A1C DONE. GLUCOSE 160-200 QUYEN ADJUSE DOSES. GLUOCSE HAS GONE UP. DIET IS NOT THE BES. GLUCOSE IS HIGH FOOD CHOICES ARE POOR IN DIABETIC FOOD AT HOSPITAL EVEN. AT HOME HIS NUMBERS ARE NOT BAD. (3) Anemia Current Visit: Yes Status: Acute Plan: HOLD AC WILL DO LAB EVERY OTHER DAY. NO ACUTE BLEEDING HE CAN SEE HIS GI DOCTOR DIVINE DUENAS. ANEMIA CHARACTER IS OF CHRONIC DISEASE. LOW IRON, TIBC AND NORMAL FERRITIN. WILL FU. GIVE TWO UNITS OF PRBCS MDS IS THE REASON FOR ANEMIA. SHE HAS SEEN DR. PANT FOR IT 5 YEARS AGO. WILL FU [place].
--- NOTE | 2019-12-27 17:07 | R.PN ---
PROGRESS NOTES ENCOUNTER DATE AND TIME: 12/27/2019 17:04 ([facility] SOLUTION ARCHITECT) NAME KRYSTIAN RUBIN DATE OF : 1935 DATE OF ADMISSION: 12/15/2019 12:43 ([facility] SOLUTION ARCHITECT) RIGHT HIP FRACTURECHIEF COMPLAINT: Right hip fracture SUBJECTIVE: Pt denied any depression. Pt denied any Shortness of Breath. WBC 7.4, Hgb 10.3, Plt 173, glucose 132 to 196, prealbumin 14.9. Xarelto was D/Emeka. He is using SCDs . UA esterase 3+, WBC TNTC. Ambulated 850' with standby assistance using a rolling walker. VITAL SIGNS Temperature: 98.1 F SBP/DBP: 112/66 Pulse: 74 Resp: 16 MEDICATION ALLERGIES: No Known Drug Allergies (NKDA) ENVIRONMENTAL ALLERGIES: - Substance Allergies None Known - Other Allergies None Known NURSING: - Shower allowing shower - Skin care per protocol PRECAUTIONS: - Anterior Hip Precaution No abduction No active extension No adduction across midline No external rotation No hip flexion >90 degrees No internal rotation - Posterior Hip Precaution No adduction across midline No external rotation No hip flexion >90 degrees No internal rotation No wheel chair propulsion - Weight Bearing Precaution WBAT right LE ACTIVITIES OOB only with supervision THERAPIES: - Dietary and Nutrition Adequate Nutrition. Nutritional Education. Nutritional Supplements. PHYSICAL EXAM - Gen Alert and awake Lying in bed No apparent distress Oriented to: person, time, and place - Skin No breakdown Normacephalic - Eyes No abnormalities - ENMT No abnormalities - Neck No abnormalities - CVS RRR - Chest No abnormalities - Resp Clear to auscultation - Abd Soft - GI + bowel sounds Deferred - No abnormalities - Ext Right hip surgical site has good hemostasis. - MSK 4+/5 weakness in right lower extremity - Neuro 4/5 strength right lower extremity. - Psych No abnormalities ASSESSMENT: Pt. is a 84 yo Right-handed male of unknown race.On 12/11/2019 he was admitted to [facility] with diagnosis RIGHT HIP FRACTURE.His impairment category is Orthopaedic Disorders 08 - Unilate ral Hip Fracture (08.11).Pre-morbidly, Pt. was independent/mod-I in Safety Awareness, Self-Care, and Communication; and he had good Sphincter Control, Transfers Control, and Locomotion.Currently, he has deficits of Endurance, Safety Awareness, Locomotion, Balance, and Sphincter Control.Pt. is now refer red to [facility] for acute in-patient rehabilitation in order to maximize pat xiomara's functional independence in activities of daily living, strength, ROM, and mobility.- Rehab Goa l Patient has realistic goal of being discharged at assistance level 7-Ind to reside at Home with Fami ly/Relatives. MDM/PLAN: - Physical Therapy Decreased range of motion - to improve, our physical therapists will perform initial evaluation of p t's status upon admission and devise an individualized program for increasing patient's Range of Andrey on. Need for home safety evaluation - to improve, our physical therapists will perform initial evaluatio n of pt's status upon admission and devise an individualized program for Home Evaluation Need in caregiver upon discharge - to improve, our physical therapists will perform initial evaluati on of pt's status upon admission and devise an individualized program for Caregiver Training New precaution - to improve, our physical therapists will perform initial evaluation of pt's status upon admission and devise an individualized program for Patient precaution education Poor balance - to improve, our physical therapists will perform initial evaluation of pt's status up on admission and devise an individualized program for Balance Training Poor endurance - to improve, our physical therapists will perform initial evaluation of pt's status upon admission and devise an individualized program for Endurance Training Achieving independence - to improve, our physical therapists will perform initial evaluation of pt's status upon admission and devise an individualized program for Community Reintegration Activities - Occupational Therapy Need for child care counselor - to improve, our occupation therapists will perform initial evaluation of pt's status upon admission and devise an individualized program for Caregiver Training - Other See attached MAR (Medication Administration Record) - Anterior Hip Precaution No abduction No active extension No adduction across midline No external rotation No hip flexion >90 degrees No internal rotation - Diet - Liquid Texture Continue Regular - Tube Feed Continue N/A - Diet Type Continue Regular - Posterior Hip Precaution No adduction across midline No external rotation No hip flexion >90 degrees No internal rotation No wheel chair propulsion - Weight Bearing Precaution WBAT right LE - Skin care per protocol - Diet - Solid Texture Continue Regular - Shower allowing shower FUNCTIONAL STATUS: UPDATED AT WEEKLY TEAM CONFERENCE - Bladder Same accident frequency: 7-Ind - No accidents in the past 7 days - Bowel Same accident frequency: 7-Ind - No accidents in the past 7 days - Walking Same score based on distance walked: 0(N/A) Same score based on distance walked: 1(<=50ft) - Wheelchair Same score based on distance traveled: 0(N/A) FUNCTIONAL STATUS: - Self-Care A. Eating Shashi B. Grooming Shashi C. Bathing sup D. Dressing - Upper sup E. Dressing - Lower Abril F. Toileting Abril - Sphincter Control G. Bladder control sup H. Bowel control sup - Transfers Control I. Bed/Chair/Wheelchair sup J. Toilet sup K. Tub/Shower Abril - Locomotion L. Walk/Wheelchair (B) Abril M. Stairs modA - Communication N. Comprehension (B) Shashi O. Expression (B) Shashi - Social Cognition P. Social Interaction Shashi Q. Problem Solving Shashi R. Memory Shashi - Endurance Fair - Balance Fair - Safety Awareness Fair QI SCORES: - Self-Care A. Eating 03-Partial/moderate assistance B. Oral hygiene 03-Partial/moderate assistance C. Toileting hygiene 03-Partial/moderate assistance E. Shower/bathe self 03-Partial/moderate assistance F. Upper body dressing 03-Partial/moderate assistance G. Lower body dressing 03-Partial/moderate assistance H. Putting on/taking off footwear 88-Not attempted due to medical condition or safety concerns - Mobility A. Roll left and right 03-Partial/moderate assistance B. Sit to lying 03-Partial/moderate assistance C. Lying to sitting on side of bed 03-Partial/moderate assistance D. Sit to stand 03-Partial/moderate assistance E. Chair/etx-oj-[id number] transfer 03-Partial/moderate assistance F. Toilet transfer 03-Partial/moderate assistance G. Car transfer 88-Not attempted due to medical condition or safety concerns I. Walk 10 feet 88-Not attempted due to medical condition or safety concerns J. Walk 50 feet with two turns 88-Not attempted due to medical condition or safety concerns K. Walk 150 feet 88-Not attempted due to medical condition or safety concerns L. Walking 10 feet on uneven surfaces 88-Not attempted due to medical condition or safety concerns M. 1 step (curb) 88-Not attempted due to medical condition or safety concerns N. 4 steps 88-Not attempted due to medical condition or safety concerns O. 12 steps 88-Not attempted due to medical condition or safety concerns P. Picking up object 88-Not attempted due to medical condition or safety concerns R. Wheel 50 feet with two turns 88-Not attempted due to medical condition or safety concerns S. Wheel 150 feet 88-Not attempted due to medical condition or safety concerns - Bladder and Bowel Bladder continence Bowel continence - Endurance Good - Balance Good - Safety Awareness Good CURRENT FUNC. DEFICITS: Self-Care and Mobility SIGNATURE PANEL: ([facility] SOLUTION ARCHITECT)
[2019-12-27] MEDS: ATORVASTATIN 80 MG TAB PO SCH (20:17)
[2019-12-28] MEDS: LEVOTHYROXINE SOD 0.05 MG TABLET PO SCH (07:08)
[2019-12-28] MEDS: INSULIN -REGULAR HUMAN 50 UNIT/0.5 ML ML SQ SCH ×4 (07:30→20:16)
[2019-12-28] MEDS: LIDOCAINE 4% PATCH TOP SCH (08:43)
[2019-12-28] MEDS: DOCUSATE NA 100 MG CAP PO SCH ×2 (08:44→20:15)
[2019-12-28] MEDS: CRANBERRY FRUIT EXTRACT 200 MG CAP PO SCH ×2 (08:44→20:14)
[2019-12-28] MEDS: RIVAROXABAN 10 MG TABLET PO SCH (08:44)
[2019-12-28] MEDS: FERROUS SULFATE 325 MG TAB PO SCH (08:45)
[2019-12-28] MEDS: FE SULF/FA/VIT B COMP & C TAB PO SCH (08:45)
[2019-12-28] MEDS: FINASTERIDE 5 MG TAB PO SCH (08:45)
[2019-12-28] MEDS: CLOPIDOGREL 75 MG TABLET PO SCH (08:45)
[2019-12-28] MEDS: BACLOFEN 10 MG TAB PO SCH (08:45)
[2019-12-28] MEDS: ACETAMINOPHEN 500 MG TAB PO PRN (08:46)
[2019-12-28] MEDS: INSULIN GLARGINE 100 UNITS/ML SQ SCH ×2 (08:47→20:15)
[2019-12-28] MEDS: VALSARTAN 80 MG TAB PO SCH (10:42)
[2019-12-28] MEDS: JUVEN PACKET PO SCH ×2 (10:43→20:00)
[2019-12-28] MEDS ORDERED: D50W 25 GM/50 ML SYRINGE IV PRN (13:15)
[2019-12-28] MEDS ORDERED: GLUCAGON 1 MG/VIAL IM PRN (13:15)
--- NOTE | 2019-12-28 14:09 | P.PN ---
Subjective Date of Service: 12/28/19 Chief Complaint: DOING GOOD. Subjective: Improving SP HIP FRACTURE,HERE FOR PT. STABLE. NO CHANGES. FEELS GOOD. NO CHANGES. HAS NO UTI SYMPTOMS. HAS NO FEVER. HE SHOWS NO SIGN OF BLEEDING FROM GI TRACT. HE IS STABLE , HAS NO COMPLAINTS. NO CHANGES, HE REMEMBERS HE HAD SEEN DR MELENDEZ BEFORE. NO BLOOD IN STOOL. STABLE, GETTING BETTER. NO CHANGES, FEELS WELL. HAS NO CHANGES. BF HAS PANCAKES AND CARVER IN FOOD DAILY. HIS SUGAR AFTER FOOD STAYS HIGH. FOOD HAS PANCAKES, BISCUITS AND CARVER. Review of Systems 10-point ROS is otherwise unremarkable Physical Examination - Vital Signs Temperature: 98.7 F Blood Pressure: 119/67 Pulse: 75 Respirations: 16 Pulse Ox (%): 98 - Physical Exam General: Alert, In no apparent distress HEENT: Atraumatic, PERRLA, EOMI Neck: Supple, JVD not distended Respiratory: Clear to auscultation bilaterally, Normal air movement Cardiovascular: Regular rate/rhythm, Normal S1 S2 Gastrointestinal: Normal bowel sounds, No tenderness Musculoskeletal: No tenderness Integumentary: No rashes Neurological: Normal speech, Normal tone, Normal affect Lymphatics: No axilla or inguinal lymphadenopathy - Studies Microbiology Data (last 24 hrs): 12/25/19 06:00 Nasopharnyx Coronavirus COVID-19 PCR - Final Medications List Reviewed: Yes Assessment And Plan - Current Problems (Diagnosis) (1) Closed right hip fracture Current Visit: No Status: Acute Plan: CONT PT . FALL PREC. RESUME XARELTO 10 MG. HOPEFULLY WILL TOLERATE. NO CHANGES. MEDS REVIEWED. 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 Qualifiers: Encounter type: subsequent encounter (2) Diabetes type 2, controlled Onset Date: 03/05/17 Current Visit: No Status: Chronic Plan: FU ON LDL AND A1C DONE. GLUCOSE 160-200 QUYEN ADJUSE DOSES. GLUOCSE HAS GONE UP. DIET IS NOT THE BES. GLUCOSE IS HIGH FOOD CHOICES ARE POOR IN DIABETIC FOOD AT HOSPITAL EVEN. AT HOME HIS NUMBERS ARE NOT BAD. ADD 7 UNITS OF INSULIN BEFORE MEALS. HE IS ON HIGHER DOSE OF LANTUS HERE THAN AT HOME. DIABETIC DIET IN HOSPITAL IS NOT THE BEST. I RECOMMEND PALEO DIET WITH GOOD CARBS, PROTEIN AND FAT AND NOT PROCESSED FLOUR PRODUCTS LIKE YOU SEE HERE. (3) Anemia Current Visit: Yes Status: Acute Plan: HOLD AC WILL DO LAB EVERY OTHER DAY. NO ACUTE BLEEDING HE CAN SEE HIS GI DOCTOR DIVINE DUENAS. ANEMIA CHARACTER IS OF CHRONIC DISEASE. LOW IRON, TIBC AND NORMAL FERRITIN. WILL FU. GIVE TWO UNITS OF PRBCS MDS IS THE REASON FOR ANEMIA. SHE HAS SEEN DR. MELENDEZ FOR IT 5 YEARS AGO. WILL FU HG RTNLY.
[2019-12-28] MEDS: INSULIN LISPRO 100 UNIT/1 ML SQ SCH (17:19)
[2019-12-28] MEDS: ATORVASTATIN 80 MG TAB PO SCH (20:15)
[2019-12-29] MEDS: LEVOTHYROXINE SOD 0.05 MG TABLET PO SCH (07:13)
[2019-12-29] MEDS: INSULIN -REGULAR HUMAN 50 UNIT/0.5 ML ML SQ SCH ×4 (07:30→20:15)
[2019-12-29] MEDS: JUVEN PACKET PO SCH ×2 (08:00→20:14)
[2019-12-29] MEDS: VALSARTAN 80 MG TAB PO SCH (08:00)
[2019-12-29] MEDS: FERROUS SULFATE 325 MG TAB PO SCH (08:21)
[2019-12-29] MEDS: LIDOCAINE 4% PATCH TOP SCH (08:21)
[2019-12-29] MEDS: CRANBERRY FRUIT EXTRACT 200 MG CAP PO SCH ×2 (08:21→20:14)
[2019-12-29] MEDS: RIVAROXABAN 10 MG TABLET PO SCH (08:21)
[2019-12-29] MEDS: CLOPIDOGREL 75 MG TABLET PO SCH (08:22)
[2019-12-29] MEDS: FE SULF/FA/VIT B COMP & C TAB PO SCH (08:22)
[2019-12-29] MEDS: DOCUSATE NA 100 MG CAP PO SCH ×2 (08:22→20:14)
[2019-12-29] MEDS: ACETAMINOPHEN 500 MG TAB PO PRN ×2 (08:22→12:19)
[2019-12-29] MEDS: FINASTERIDE 5 MG TAB PO SCH (08:22)
[2019-12-29] MEDS: BACLOFEN 10 MG TAB PO SCH (08:22)
[2019-12-29] MEDS: INSULIN GLARGINE 100 UNITS/ML SQ SCH ×2 (08:23→20:15)
[2019-12-29] MEDS: INSULIN LISPRO 100 UNIT/1 ML SQ SCH ×3 (08:24→17:05)
--- NOTE | 2019-12-29 14:04 | FAST ---
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 Gopal Merrill M.D. ADMISSION DIAGNOSIS: - Orthopaedic Disorders 08 - Unilateral Hip Fracture (08.11) RIGHT HIP FRACTURE. EATING: EATING - STEP 1: Does the patient complete the activity by him/herself with no assistance (physical, verbal/nonverbal cueing, setup/clean-up)? No. EATING - STEP 2: Does the patient need only setup/clean-up assistance from one helper? Yes. 1. [id number] ADMISSION PERFORMANCE: Setup or clean-up assistance CODE: 05 ORAL HYGIENE: ORAL HYGIENE - STEP 1: Does the patient complete the activity by him/herself with no assistance (physical, verbal/nonverbal cueing, setup/clean-up)? No. ORAL HYGIENE - STEP 2: Does the patient need only setup/clean-up assistance from one helper? Yes. 1. [id number] ADMISSION PERFORMANCE: Setup or clean-up assistance CODE: 05 TOILETING HYGIENE: TOILETING HYGIENE - STEP 1: Does the patient complete the activity by him/herself with no assistance (physical, verbal/nonverbal cueing, setup/clean-up)? No. TOILETING HYGIENE - STEP 2: Does the patient need only setup/clean-up assistance from one helper? No. TOILETING HYGIENE - STEP 3: Does the patient need only verbal/nonverbal cueing or touching/steadying/contact guard assistance fro m one helper? Yes. 1. [id number] ADMISSION PERFORMANCE: Supervision or touching assistance CODE: 04 BATHING: Not assessed/no information CODE: - DRESSING - UPPER BODY: DRESSING - UPPER BODY - STEP 1: Does the patient complete the activity by him/herself with no assistance (physical, verbal/nonverbal cueing, setup/clean-up)? No. DRESSING - UPPER BODY - STEP 2: Does the patient need only setup/clean-up assistance from one helper? No. DRESSING - UPPER BODY - STEP 3: Does the patient need only verbal/nonverbal cueing or touching/steadying/contact guard assistance fro m one helper? Yes. 1. [id number] ADMISSION PERFORMANCE: Supervision or touching assistance CODE: 04 DRESSING - LOWER BODY: DRESSING - LOWER BODY - STEP 1: Does the patient complete the activity by him/herself with no assistance (physical, verbal/nonverbal cueing, setup/clean-up)? No. DRESSING - LOWER BODY - STEP 2: Does the patient need only setup/clean-up assistance from one helper? No. DRESSING - LOWER BODY - STEP 3: Does the patient need only verbal/nonverbal cueing or touching/steadying/contact guard assistance fro m one helper? No. DRESSING - LOWER BODY - STEP 4: Does the patient need physical assistance - for example lifting or trunk support from one helper - wi th the helper providing less than half of the effort? Yes. 1. [id number] ADMISSION PERFORMANCE: Partial/moderate assistance CODE: 03 PUTTING ON/TAKING OFF FOOTWEAR: FOOTWEAR - STEP 1: Does the patient complete the activity by him/herself with no assistance (physical, verbal/nonverbal cueing, setup/clean-up)? No. FOOTWEAR - STEP 2: Does the patient need only setup/clean-up assistance from one helper? No. FOOTWEAR - STEP 3: Does the patient need only verbal/nonverbal cueing or touching/steadying/contact guard assistance fro m one helper? No. FOOTWEAR - STEP 4: Does the patient need physical assistance - for example lifting or trunk support from one helper - wi th the helper providing less than half of the effort? Yes. 1. [id number] ADMISSION PERFORMANCE: Partial/moderate assistance CODE: 03 SIT TO LYING: SIT TO LYING - STEP 1: Does the patient complete the activity by him/herself with no assistance (physical, verbal/nonverbal cueing, setup/clean-up)? No. SIT TO LYING - STEP 2: Does the patient need only setup/clean-up assistance from one helper? No. SIT TO LYING - STEP 3: Does the patient need only verbal/nonverbal cueing or touching/steadying/contact guard assistance fro m one helper? Yes. 1. [id number] ADMISSION PERFORMANCE: Supervision or touching assistance CODE: 04 LYING TO SITTING: LYING TO SITTING ON SIDE OF BED - STEP 1: Does the patient complete the activity by him/herself with no assistance (physical, verbal/nonverbal cueing, setup/clean-up)? No. LYING TO SITTING ON SIDE OF BED - STEP 2: Does the patient need only setup/clean-up assistance from one helper? No. LYING TO SITTING ON SIDE OF BED - STEP 3: Does the patient need only verbal/nonverbal cueing or touching/steadying/contact guard assistance fro m one helper? Yes. 1. [id number] ADMISSION PERFORMANCE: Supervision or touching assistance CODE: 04 SIT TO STAND: SIT TO STAND - STEP 1: Does the patient complete the activity by him/herself with no assistance (physical, verbal/nonverbal cueing, setup/clean-up)? No. SIT TO STAND - STEP 2: Does the patient need only setup/clean-up assistance from one helper? No. SIT TO STAND - STEP 3: Does the patient need only verbal/nonverbal cueing or touching/steadying/contact guard assistance fro m one helper? Yes. 1. [id number] ADMISSION PERFORMANCE: Supervision or touching assistance CODE: 04 TRANSFERS: BED, CHAIR: CHAIR/[id number] TRANSFER - STEP 1: Does the patient complete the activity by him/herself with no assistance (physical, verbal/nonverbal cueing, setup/clean-up)? No. CHAIR/[id number] TRANSFER - STEP 2: Does the patient need only setup/clean-up assistance from one helper? No. CHAIR/[id number] TRANSFER - STEP 3: Does the patient need only verbal/nonverbal cueing or touching/steadying/contact guard assistance fro m one helper? Yes. 1. [id number] ADMISSION PERFORMANCE: Supervision or touching assistance CODE: 04 TRANSFER TOILET: TOILET TRANSFER - STEP 1: Does the patient complete the activity by him/herself with no assistance (physical, verbal/nonverbal cueing, setup/clean-up)? No. TOILET TRANSFER - STEP 2: Does the patient need only setup/clean-up assistance from one helper? No. TOILET TRANSFER - STEP 3: Does the patient need only verbal/nonverbal cueing or touching/steadying/contact guard assistance fro m one helper? Yes. 1. [id number] ADMISSION PERFORMANCE: Supervision or touching assistance CODE: 04 TRANSFERS: CAR: Not assessed/no information CODE: - WALK 10 FEET: Not assessed/no information CODE: - 1 STEP (CURB): Not assessed/no information CODE: - PICKING UP OBJECT: Not assessed/no information CODE: - DOES THE PATIENT USE A WHEELCHAIR/SCOOTER? Q1. DOES THE PATIENT USE A WHEELCHAIR/SCOOTER?: Yes CODE: 1 WHEEL 50 FEET WITH TWO TURNS: WHEEL 50 FEET WITH TWO TURNS - STEP 1: Does the patient complete the activity by him/herself with no assistance (physical, verbal/nonverbal cueing, setup/clean-up)? No. WHEEL 50 FEET WITH TWO TURNS - STEP 2: Does the patient need only setup/clean-up assistance from one helper? Yes. 1. [id number] ADMISSION PERFORMANCE: Setup or clean-up assistance CODE: 05 INDICATE THE TYPE OF WHEELCHAIR/SCOOTER USED: RR1. INDICATE THE TYPE OF WHEELCHAIR/SCOOTER USED.: Manual CODE: 1 WHEEL 150 FEET: WHEEL 150 FEET - STEP 1: Does the patient complete the activity by him/herself with no assistance (physical, verbal/nonverbal cueing, setup/clean-up)? No. WHEEL 150 FEET - STEP 2: Does the patient need only setup/clean-up assistance from one helper? No. WHEEL 150 FEET - STEP 3: Does the patient need only verbal/nonverbal cueing or touching/steadying/contact guard assistance fro m one helper? Yes. 1. [id number] ADMISSION PERFORMANCE: Supervision or touching assistance CODE: 04 INDICATE THE TYPE OF WHEELCHAIR/SCOOTER USED: SS1. INDICATE THE TYPE OF WHEELCHAIR/SCOOTER USED.: Manual CODE: 1 BLADDER AND BOWEL: H350. BLADDER CONTINENCE (3-DAY ASSESSMENT PERIOD): Always continent (no documented incontinence) CODE: 0 H400. BOWEL CONTINENCE (3-DAY ASSESSMENT PERIOD): Always continent CODE: 0 SIGNATURE PANEL: The following modified sections: 1. [id number] Admission Performance, 1. [id number] Admission Performance, 1. [id number] Admission Performance, 1. [id number] Admission Performance, 1. [id number] Admission Performance, 1. [id number] Admission Performance, 1. [id number] Admission Performance, 1. [id number] Admission Performance , 1. [id number] Admission Performance, 1. [id number] Admission Performance, 1. [id number] Admission Performanc e, 1. [id number] Admission Performance, 1. [id number] Admission Performance, Q1. Does the patient use a whe elchair/scooter?, 1. [id number] Admission Performance, RR1. Indicate the type of wheelchair/scooter used ., 1. [id number] Admission Performance, Code, SS1. Indicate the type of wheelchair/scooter used., H350. Bladder Continence (3-day assessment period), H400. Bowel Continence (3-day assessment period) were [ electronically] signed by Najma BenavidezNTraci on SunDec 29 2019 14:03:21 GMT-0600 (Central Standard Time)
--- NOTE | 2019-12-29 17:57 | P.PN ---
Subjective Date of Service: 12/29/19 Chief Complaint: DOING GOOD. Subjective: Improving SP HIP FRACTURE,HERE FOR PT. STABLE. NO CHANGES. FEELS GOOD. NO CHANGES. HAS NO UTI SYMPTOMS. HAS NO FEVER. HE SHOWS NO SIGN OF BLEEDING FROM GI TRACT. HE IS STABLE , HAS NO COMPLAINTS. NO CHANGES, HE REMEMBERS HE HAD SEEN DR MELENDEZ BEFORE. NO BLOOD IN STOOL. STABLE, GETTING BETTER. NO CHANGES, FEELS WELL. HAS NO CHANGES. BF HAS PANCAKES AND CARVER IN FOOD DAILY. HIS SUGAR AFTER FOOD STAYS HIGH. FOOD HAS PANCAKES, BISCUITS AND CARVER. GLUCOSE IS DOWN TO 170 AFTER I ADDED MEALTIME INSULIN. Physical Examination - Vital Signs Temperature: 98.6 F Blood Pressure: 113/66 Pulse: 75 Respirations: 18 Pulse Ox (%): 99 - Physical Exam General: Alert, In no apparent distress HEENT: Atraumatic, PERRLA, EOMI Neck: Supple, JVD not distended Respiratory: Clear to auscultation bilaterally, Normal air movement Cardiovascular: Regular rate/rhythm, Normal S1 S2 Gastrointestinal: Normal bowel sounds, No tenderness Musculoskeletal: No tenderness Integumentary: No rashes Neurological: Normal speech, Normal tone, Normal affect Lymphatics: No axilla or inguinal lymphadenopathy - Studies Medications List Reviewed: Yes Assessment And Plan - Current Problems (Diagnosis) (1) Closed right hip fracture Current Visit: No Status: Acute Plan: CONT PT . FALL PREC. RESUME XARELTO 10 MG. HOPEFULLY WILL TOLERATE. NO CHANGES. MEDS REVIEWED. 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 Qualifiers: Encounter type: subsequent encounter (2) Diabetes type 2, controlled Onset Date: 03/05/17 Current Visit: No Status: Chronic Plan: FU ON LDL AND A1C DONE. GLUCOSE 160-200 QUYEN ADJUSE DOSES. GLUOCSE HAS GONE UP. DIET IS NOT THE BES. GLUCOSE IS HIGH FOOD CHOICES ARE POOR IN DIABETIC FOOD AT HOSPITAL EVEN. AT HOME HIS NUMBERS ARE NOT BAD. ADD 7 UNITS OF INSULIN BEFORE MEALS. HE IS ON HIGHER DOSE OF LANTUS HERE THAN AT HOME. DIABETIC DIET IN HOSPITAL IS NOT THE BEST. I RECOMMEND PALEO DIET WITH GOOD CARBS, PROTEIN AND FAT AND NOT PROCESSED FLOUR PRODUCTS LIKE YOU SEE HERE. ABOVE. (3) Anemia Current Visit: Yes Status: Acute Plan: HOLD AC WILL DO LAB EVERY OTHER DAY. NO ACUTE BLEEDING HE CAN SEE HIS GI DOCTOR DIVINE DUENAS. ANEMIA CHARACTER IS OF CHRONIC DISEASE. LOW IRON, TIBC AND NORMAL FERRITIN. WILL FU. GIVE TWO UNITS OF PRBCS MDS IS THE REASON FOR ANEMIA. SHE HAS SEEN DR. MELENDEZ FOR IT 5 YEARS AGO. WILL FU JENA RTNLY.
--- NOTE | 2019-12-29 19:04 | R.PN ---
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 Pt denied any Shortness of Breath. WBC 7.4, Hgb 10.3, Plt 173, glucose 135 to 172, prealbumin 14.9. Xarelto was D/Emeka. He is using SCDs . UA esterase 3+, WBC TNTC. ADLs done with supervision. VITAL SIGNS Temperature: 98.6 F SBP/DBP: 113/66 Pulse: 75 Resp: 16 MEDICATION ALLERGIES: No Known Drug Allergies (NKDA) ENVIRONMENTAL ALLERGIES: - Substance Allergies None Known - Other Allergies None Known NURSING: - Shower allowing shower - Skin care per protocol PRECAUTIONS: - Anterior Hip Precaution No abduction No active extension No adduction across midline No external rotation No hip flexion >90 degrees No internal rotation - Posterior Hip Precaution No adduction across midline No external rotation No hip flexion >90 degrees No internal rotation No wheel chair propulsion - Weight Bearing Precaution WBAT right LE ACTIVITIES OOB only with supervision THERAPIES: - Dietary and Nutrition Adequate Nutrition. Nutritional Education. Nutritional Supplements. PHYSICAL EXAM - Gen Alert and awake Lying in bed No apparent distress Oriented to: person, time, and place - Skin No breakdown Normacephalic - Eyes No abnormalities - ENMT No abnormalities - Neck No abnormalities - CVS RRR - Chest No abnormalities - Resp Clear to auscultation - Abd Soft - GI + bowel sounds Deferred - No abnormalities - Ext Right hip surgical site has good hemostasis. - MSK 4+/5 weakness in right lower extremity - Neuro 4/5 strength right lower extremity. - Psych No abnormalities ASSESSMENT: Pt. is a 84 yo Right-handed male of unknown race.On 12/11/2019 he was admitted to [facility] with diagnosis RIGHT HIP FRACTURE.His impairment category is Orthopaedic Disorders 08 - Unilate ral Hip Fracture (08.).Pre-morbidly, Pt. was independent/mod-I in Safety Awareness, Self-Care, and Communication; and he had good Sphincter Control, Transfers Control, and Locomotion.Currently, he has deficits of Endurance, Safety Awareness, Locomotion, Balance, and Sphincter Control.Pt. is now refer red to [facility] for acute in-patient rehabilitation in order to maximize john solano's functional independence in activities of daily living, strength, ROM, and mobility.- Rehab Goa l Patient has realistic goal of being discharged at assistance level 7-Ind to reside at Home with Fami ly/Relatives. MDM/PLAN: - Physical Therapy Decreased range of motion - to improve, our physical therapists will perform initial evaluation of p t's status upon admission and devise an individualized program for increasing patient's Range of Andrey on. Need for home safety evaluation - to improve, our physical therapists will perform initial evaluatio n of pt's status upon admission and devise an individualized program for Home Evaluation Need in caregiver upon discharge - to improve, our physical therapists will perform initial evaluati on of pt's status upon admission and devise an individualized program for Caregiver Training New precaution - to improve, our physical therapists will perform initial evaluation of pt's status upon admission and devise an individualized program for Patient precaution education Poor balance - to improve, our physical therapists will perform initial evaluation of pt's status up on admission and devise an individualized program for Balance Training Poor endurance - to improve, our physical therapists will perform initial evaluation of pt's status upon admission and devise an individualized program for Endurance Training Achieving independence - to improve, our physical therapists will perform initial evaluation of pt's status upon admission and devise an individualized program for Community Reintegration Activities - Occupational Therapy Need for day care aide - to improve, our occupation therapists will perform initial evaluation of pt's status upon admission and devise an individualized program for Caregiver Training - Other See attached MAR (Medication Administration Record) - Anterior Hip Precaution No abduction No active extension No adduction across midline No external rotation No hip flexion >90 degrees No internal rotation - Diet - Liquid Texture Continue Regular - Tube Feed Continue N/A - Diet Type Continue Regular - Posterior Hip Precaution No adduction across midline No external rotation No hip flexion >90 degrees No internal rotation No wheel chair propulsion - Weight Bearing Precaution WBAT right LE - Skin care per protocol - Diet - Solid Texture Continue Regular - Shower allowing shower FUNCTIONAL STATUS: UPDATED AT WEEKLY TEAM CONFERENCE - Bladder Same accident frequency: 7-Ind - No accidents in the past 7 days - Bowel Same accident frequency: 7-Ind - No accidents in the past 7 days - Walking Same score based on distance walked: 0(N/A) Same score based on distance walked: 1(<=50ft) - Wheelchair Same score based on distance traveled: 0(N/A) FUNCTIONAL STATUS: - Self-Care A. Eating Shashi B. Grooming Shashi C. Bathing sup D. Dressing - Upper sup E. Dressing - Lower Abril F. Toileting Abril - Sphincter Control G. Bladder control sup H. Bowel control sup - Transfers Control I. Bed/Chair/Wheelchair sup J. Toilet sup K. Tub/Shower Abril - Locomotion L. Walk/Wheelchair (B) Abril M. Stairs modA - Communication N. Comprehension (B) Shashi O. Expression (B) Shashi - Social Cognition P. Social Interaction Shashi Q. Problem Solving Shashi R. Memory Shashi - Endurance Fair - Balance Fair - Safety Awareness Fair QI SCORES: - Self-Care A. Eating 03-Partial/moderate assistance B. Oral hygiene 03-Partial/moderate assistance C. Toileting hygiene 03-Partial/moderate assistance E. Shower/bathe self 03-Partial/moderate assistance F. Upper body dressing 03-Partial/moderate assistance G. Lower body dressing 03-Partial/moderate assistance H. Putting on/taking off footwear 88-Not attempted due to medical condition or safety concerns - Mobility A. Roll left and right 03-Partial/moderate assistance B. Sit to lying 03-Partial/moderate assistance C. Lying to sitting on side of bed 03-Partial/moderate assistance D. Sit to stand 03-Partial/moderate assistance E. Chair/[id number] transfer 03-Partial/moderate assistance F. Toilet transfer 03-Partial/moderate assistance G. Car transfer 88-Not attempted due to medical condition or safety concerns I. Walk 10 feet 88-Not attempted due to medical condition or safety concerns J. Walk 50 feet with two turns 88-Not attempted due to medical condition or safety concerns K. Walk 150 feet 88-Not attempted due to medical condition or safety concerns L. Walking 10 feet on uneven surfaces 88-Not attempted due to medical condition or safety concerns M. 1 step (curb) 88-Not attempted due to medical condition or safety concerns N. 4 steps 88-Not attempted due to medical condition or safety concerns O. 12 steps 88-Not attempted due to medical condition or safety concerns P. Picking up object 88-Not attempted due to medical condition or safety concerns R. Wheel 50 feet with two turns 88-Not attempted due to medical condition or safety concerns S. Wheel 150 feet 88-Not attempted due to medical condition or safety concerns - Bladder and Bowel Bladder continence Bowel continence - Endurance Good - Balance Good - Safety Awareness Good CURRENT FUNC. 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
[2019-12-29] MEDS: ATORVASTATIN 80 MG TAB PO SCH (20:15)
--- NOTE | 2019-12-30 02:17 | FAST ---
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 Gopal Merrill M.D. ADMISSION DIAGNOSIS: - Orthopaedic Disorders 08 - Unilateral Hip Fracture (08.11) RIGHT HIP FRACTURE. EATING: Not assessed/no information CODE: - ORAL HYGIENE: Not assessed/no information CODE: - TOILETING HYGIENE: TOILETING HYGIENE - STEP 1: Does the patient complete the activity by him/herself with no assistance (physical, verbal/nonverbal cueing, setup/clean-up)? No. TOILETING HYGIENE - STEP 2: Does the patient need only setup/clean-up assistance from one helper? No. TOILETING HYGIENE - STEP 3: Does the patient need only verbal/nonverbal cueing or touching/steadying/contact guard assistance fro m one helper? Yes. 1. [id number] ADMISSION PERFORMANCE: Supervision or touching assistance CODE: 04 BATHING: Not assessed/no information CODE: - DRESSING - UPPER BODY: Not assessed/no information CODE: - DRESSING - LOWER BODY: Not assessed/no information CODE: - PUTTING ON/TAKING OFF FOOTWEAR: Not assessed/no information CODE: - ROLL LEFT AND RIGHT: ROLL LEFT AND RIGHT - STEP 1: Does the patient complete the activity by him/herself with no assistance (physical, verbal/nonverbal cueing, setup/clean-up)? No. ROLL LEFT AND RIGHT - STEP 2: Does the patient need only setup/clean-up assistance from one helper? No. ROLL LEFT AND RIGHT - STEP 3: Does the patient need only verbal/nonverbal cueing or touching/steadying/contact guard assistance fro m one helper? Yes. 1. [id number] ADMISSION PERFORMANCE: Supervision or touching assistance CODE: 04 SIT TO LYING: Not assessed/no information CODE: - LYING TO SITTING: Not assessed/no information CODE: - SIT TO STAND: Not assessed/no information CODE: - TRANSFERS: BED, CHAIR: Not assessed/no information CODE: - TRANSFER TOILET: Not assessed/no information CODE: - TRANSFERS: CAR: Not assessed/no information CODE: - WALK 10 FEET: Not assessed/no information CODE: - 1 STEP (CURB): Not assessed/no information CODE: - PICKING UP OBJECT: Not assessed/no information CODE: - DOES THE PATIENT USE A WHEELCHAIR/SCOOTER? CODE: EXPR WHEEL 50 FEET WITH TWO TURNS: Not assessed/no information CODE: - INDICATE THE TYPE OF WHEELCHAIR/SCOOTER USED: CODE: EXPR WHEEL 150 FEET: Not assessed/no information CODE: - INDICATE THE TYPE OF WHEELCHAIR/SCOOTER USED: CODE: EXPR BLADDER AND BOWEL: H350. BLADDER CONTINENCE (3-DAY ASSESSMENT PERIOD): Always continent (no documented incontinence) CODE: 0 H400. BOWEL CONTINENCE (3-DAY ASSESSMENT PERIOD): Always continent CODE: 0
[2019-12-30] MEDS: LEVOTHYROXINE SOD 0.05 MG TABLET PO SCH (06:25)
[2019-12-30] MEDS: LIDOCAINE 4% PATCH TOP SCH (06:26)
[2019-12-30] MEDS: INSULIN -REGULAR HUMAN 50 UNIT/0.5 ML ML SQ SCH ×4 (07:30→20:29)
[2019-12-30] MEDS: VALSARTAN 80 MG TAB PO SCH (08:00)
[2019-12-30] MEDS: INSULIN GLARGINE 100 UNITS/ML SQ SCH ×2 (08:13→20:28)
[2019-12-30] MEDS: INSULIN LISPRO 100 UNIT/1 ML SQ SCH ×3 (08:13→17:22)
[2019-12-30] MEDS: JUVEN PACKET PO SCH ×2 (08:14→20:30)
[2019-12-30] MEDS: FE SULF/FA/VIT B COMP & C TAB PO SCH (08:15)
[2019-12-30] MEDS: CRANBERRY FRUIT EXTRACT 200 MG CAP PO SCH ×2 (08:15→20:28)
[2019-12-30] MEDS: FINASTERIDE 5 MG TAB PO SCH (08:15)
[2019-12-30] MEDS: FERROUS SULFATE 325 MG TAB PO SCH (08:16)
[2019-12-30] MEDS: RIVAROXABAN 10 MG TABLET PO SCH (08:16)
[2019-12-30] MEDS: CLOPIDOGREL 75 MG TABLET PO SCH (08:16)
[2019-12-30] MEDS: BACLOFEN 10 MG TAB PO SCH (08:16)
[2019-12-30] MEDS: DOCUSATE NA 100 MG CAP PO SCH ×2 (08:17→20:28)
[2019-12-30] MEDS: ACETAMINOPHEN 500 MG TAB PO PRN (08:18)
[2019-12-30] MEDS: TRAMADOL HCL 50 MG TAB PO PRN ×2 (09:21→13:31)
--- NOTE | 2019-12-30 17:35 | R.PN ---
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 Pt denied any Shortness of Breath. WBC 7.4, Hgb 10.3, Plt 173, glucose 104 to 127, prealbumin 14.9. Xarelto was D/Emeka. He is using SCDs . UA esterase 3+, WBC TNTC. Patient states that pain is under control. Multiple sit to stand done with standby assistance. Ambulated 150' with independence using a rolling walker. Up and down 15 steps with standby assistance.. Self-propelled wheelchair 500' with independen ce. VITAL SIGNS Temperature: 98.6 F SBP/DBP: 113/68 Pulse: 73 Resp: 16 MEDICATION ALLERGIES: No Known Drug Allergies (NKDA) ENVIRONMENTAL ALLERGIES: - Substance Allergies None Known - Other Allergies None Known NURSING: - Shower allowing shower - Skin care per protocol PRECAUTIONS: - Anterior Hip Precaution No abduction No active extension No adduction across midline No external rotation No hip flexion >90 degrees No internal rotation - Posterior Hip Precaution No adduction across midline No external rotation No hip flexion >90 degrees No internal rotation No wheel chair propulsion - Weight Bearing Precaution WBAT right LE ACTIVITIES OOB only with supervision THERAPIES: - Dietary and Nutrition Adequate Nutrition. Nutritional Education. Nutritional Supplements. PHYSICAL EXAM - Gen Alert and awake Lying in bed No apparent distress Oriented to: person, time, and place - Skin No breakdown Normacephalic - Eyes No abnormalities - ENMT No abnormalities - Neck No abnormalities - CVS RRR - Chest No abnormalities - Resp Clear to auscultation - Abd Soft - GI + bowel sounds Deferred - No abnormalities - Ext Right hip surgical site has good hemostasis. - MSK 4+/5 weakness in right lower extremity - Neuro 4/5 strength right lower extremity. - Psych No abnormalities ASSESSMENT: Pt. is a 84 yo Right-handed male of unknown race.On 12/11/2019 he was admitted to [facility] with diagnosis RIGHT HIP FRACTURE.His impairment category is Orthopaedic Disorders 08 - Unilate ral Hip Fracture (08.11).Pre-morbidly, Pt. was independent/mod-I in Safety Awareness, Self-Care, and Communication; and he had good Sphincter Control, Transfers Control, and Locomotion.Currently, he has deficits of Endurance, Safety Awareness, Locomotion, Balance, and Sphincter Control.Pt. is now refer red to [facility] for acute in-patient rehabilitation in order to maximize john solano's functional independence in activities of daily living, strength, ROM, and mobility.- Rehab Goa l Patient has realistic goal of being discharged at assistance level 7-Ind to reside at Home with Fami ly/Relatives. MDM/PLAN: - Physical Therapy Decreased range of motion - to improve, our physical therapists will perform initial evaluation of p t's status upon admission and devise an individualized program for increasing patient's Range of Andrey on. Need for home safety evaluation - to improve, our physical therapists will perform initial evaluatio n of pt's status upon admission and devise an individualized program for Home Evaluation Need in caregiver upon discharge - to improve, our physical therapists will perform initial evaluati on of pt's status upon admission and devise an individualized program for Caregiver Training New precaution - to improve, our physical therapists will perform initial evaluation of pt's status upon admission and devise an individualized program for Patient precaution education Poor balance - to improve, our physical therapists will perform initial evaluation of pt's status up on admission and devise an individualized program for Balance Training Poor endurance - to improve, our physical therapists will perform initial evaluation of pt's status upon admission and devise an individualized program for Endurance Training Achieving independence - to improve, our physical therapists will perform initial evaluation of pt's status upon admission and devise an individualized program for Community Reintegration Activities - Occupational Therapy Need for resident care aide - to improve, our occupation therapists will perform initial evaluation of pt's status upon admission and devise an individualized program for Caregiver Training - Other See attached MAR (Medication Administration Record) - Anterior Hip Precaution No abduction No active extension No adduction across midline No external rotation No hip flexion >90 degrees No internal rotation - Diet - Liquid Texture Continue Regular - Tube Feed Continue N/A - Diet Type Continue Regular - Posterior Hip Precaution No adduction across midline No external rotation No hip flexion >90 degrees No internal rotation No wheel chair propulsion - Weight Bearing Precaution WBAT right LE - Skin care per protocol - Diet - Solid Texture Continue Regular - Shower allowing shower FUNCTIONAL STATUS: UPDATED AT WEEKLY TEAM CONFERENCE - Bladder Same accident frequency: 7-Ind - No accidents in the past 7 days - Bowel Same accident frequency: 7-Ind - No accidents in the past 7 days - Walking Same score based on distance walked: 0(N/A) Same score based on distance walked: 1(<=50ft) - Wheelchair Same score based on distance traveled: 0(N/A) FUNCTIONAL STATUS: - Self-Care A. Eating Shashi B. Grooming Shashi C. Bathing sup D. Dressing - Upper sup E. Dressing - Lower Abril F. Toileting Abril - Sphincter Control G. Bladder control sup H. Bowel control sup - Transfers Control I. Bed/Chair/Wheelchair sup J. Toilet sup K. Tub/Shower Abril - Locomotion L. Walk/Wheelchair (B) Abril M. Stairs modA - Communication N. Comprehension (B) Shashi O. Expression (B) Shashi - Social Cognition P. Social Interaction Shashi Q. Problem Solving Shashi R. Memory Shashi - Endurance Fair - Balance Fair - Safety Awareness Fair QI SCORES: - Self-Care A. Eating 03-Partial/moderate assistance B. Oral hygiene 03-Partial/moderate assistance C. Toileting hygiene 03-Partial/moderate assistance E. Shower/bathe self 03-Partial/moderate assistance F. Upper body dressing 03-Partial/moderate assistance G. Lower body dressing 03-Partial/moderate assistance H. Putting on/taking off footwear 88-Not attempted due to medical condition or safety concerns - Mobility A. Roll left and right 03-Partial/moderate assistance B. Sit to lying 03-Partial/moderate assistance C. Lying to sitting on side of bed 03-Partial/moderate assistance D. Sit to stand 03-Partial/moderate assistance E. Chair/[id number]-[id number] transfer 03-Partial/moderate assistance F. Toilet transfer 03-Partial/moderate assistance G. Car transfer 88-Not attempted due to medical condition or safety concerns I. Walk 10 feet 88-Not attempted due to medical condition or safety concerns J. Walk 50 feet with two turns 88-Not attempted due to medical condition or safety concerns K. Walk 150 feet 88-Not attempted due to medical condition or safety concerns L. Walking 10 feet on uneven surfaces 88-Not attempted due to medical condition or safety concerns M. 1 step (curb) 88-Not attempted due to medical condition or safety concerns N. 4 steps 88-Not attempted due to medical condition or safety concerns O. 12 steps 88-Not attempted due to medical condition or safety concerns P. Picking up object 88-Not attempted due to medical condition or safety concerns R. Wheel 50 feet with two turns 88-Not attempted due to medical condition or safety concerns S. Wheel 150 feet 88-Not attempted due to medical condition or safety concerns - Bladder and Bowel Bladder continence Bowel continence - Endurance Good - Balance Good - Safety Awareness Good CURRENT FUNC. 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
[2019-12-30] MEDS: ATORVASTATIN 80 MG TAB PO SCH (20:28)
[2019-12-30 21:22] LABS: Hematocrit 29.2 % (39.6-49.0); RBC Red Blood Cell Count 3.38 M/uL (4.33-5.43)
[2019-12-30 21:23] LABS: Absolute Lymphocytes (CBC) 1.4 K/uL (0.7-4.9); Basophils % 0.9 % (0-1.3); Lymphocytes % 25.4 % (15.3-44.8); MPV 8.7 fL (7.6-11.3)
[2019-12-31] MEDS: LEVOTHYROXINE SOD 0.05 MG TABLET PO SCH (05:33)
[2019-12-31] MEDS: INSULIN -REGULAR HUMAN 50 UNIT/0.5 ML ML SQ SCH ×4 (07:30→20:32)
[2019-12-31] MEDS: INSULIN LISPRO 100 UNIT/1 ML SQ SCH ×3 (08:00→16:35)
[2019-12-31] MEDS: TRAMADOL HCL 50 MG TAB PO PRN ×2 (08:33→13:11)
[2019-12-31] MEDS: INSULIN GLARGINE 100 UNITS/ML SQ SCH (08:34)
[2019-12-31] MEDS: JUVEN PACKET PO SCH ×2 (08:34→20:00)
[2019-12-31] MEDS: RIVAROXABAN 10 MG TABLET PO SCH (08:35)
[2019-12-31] MEDS: FINASTERIDE 5 MG TAB PO SCH (08:35)
[2019-12-31] MEDS: CRANBERRY FRUIT EXTRACT 200 MG CAP PO SCH ×2 (08:35→20:31)
[2019-12-31] MEDS: FE SULF/FA/VIT B COMP & C TAB PO SCH (08:36)
[2019-12-31] MEDS: VALSARTAN 80 MG TAB PO SCH (08:36)
[2019-12-31] MEDS: BACLOFEN 10 MG TAB PO SCH (08:36)
[2019-12-31] MEDS: DOCUSATE NA 100 MG CAP PO SCH ×2 (08:36→20:31)
[2019-12-31] MEDS: FERROUS SULFATE 325 MG TAB PO SCH (08:36)
[2019-12-31] MEDS: CLOPIDOGREL 75 MG TABLET PO SCH (08:36)
[2019-12-31] MEDS ORDERED: D50W 25 GM/50 ML SYRINGE IV PRN ×2 (09:28→09:32)
[2019-12-31] MEDS ORDERED: GLUCAGON 1 MG/VIAL IM PRN ×2 (09:28→09:32)
[2019-12-31] MEDS: LIDOCAINE 4% PATCH TOP SCH (10:37)
--- NOTE | 2019-12-31 17:37 | R.PN ---
PROGRESS NOTES ENCOUNTER DATE AND TIME: 12/31/2019 17:34 (WET SUIT GLUER) NAME KRYSTIAN RUBIN DATE OF : 1935 DATE OF ADMISSION: 12/15/2019 12:43 (WET SUIT GLUER) RIGHT HIP FRACTURECHIEF COMPLAINT: Right hip fracture SUBJECTIVE: Pt denied any depression. Pt denied any Shortness of Breath. WBC 5.6, Hgb 10.2, Plt 173, glucose 82 to 140, prealbumin 14.9. Xarelto was D/Emeka. He is using SCDs. UA esterase 3+, WBC TNTC. Patient states that pain is under control. Multiple sit to stand done with standby assistance. Ambulated 250' with independence using a rolling walker. Up and down 15 steps with standby assistance. VITAL SIGNS Temperature: 98.8 F SBP/DBP: 119/66 Pulse: 74 Resp: 16 MEDICATION ALLERGIES: No Known Drug Allergies (NKDA) ENVIRONMENTAL ALLERGIES: - Substance Allergies None Known - Other Allergies None Known NURSING: - Shower allowing shower - Skin care per protocol PRECAUTIONS: - Anterior Hip Precaution No abduction No active extension No adduction across midline No external rotation No hip flexion >90 degrees No internal rotation - Posterior Hip Precaution No adduction across midline No external rotation No hip flexion >90 degrees No internal rotation No wheel chair propulsion - Weight Bearing Precaution WBAT right LE ACTIVITIES OOB only with supervision THERAPIES: - Dietary and Nutrition Adequate Nutrition. Nutritional Education. Nutritional Supplements. PHYSICAL EXAM - Gen Alert and awake Lying in bed No apparent distress Oriented to: person, time, and place - Skin No breakdown Normacephalic - Eyes No abnormalities - ENMT No abnormalities - Neck No abnormalities - CVS RRR - Chest No abnormalities - Resp Clear to auscultation - Abd Soft - GI + bowel sounds Deferred - No abnormalities - Ext Right hip surgical site has good hemostasis. - MSK 4+/5 weakness in right lower extremity - Neuro 4/5 strength right lower extremity. - Psych No abnormalities ASSESSMENT: Pt. is a 84 yo Right-handed male of unknown race.On 12/11/2019 he was admitted to [facility] with diagnosis RIGHT HIP FRACTURE.His impairment category is Orthopaedic Disorders 08 - Unilate ral Hip Fracture (08.11).Pre-morbidly, Pt. was independent/mod-I in Safety Awareness, Self-Care, and Communication; and he had good Sphincter Control, Transfers Control, and Locomotion.Currently, he has deficits of Endurance, Safety Awareness, Locomotion, Balance, and Sphincter Control.Pt. is now refer red to [facility] for acute in-patient rehabilitation in order to maximize john solano's functional independence in activities of daily living, strength, ROM, and mobility.- Rehab Tutu l Patient has realistic goal of being discharged at assistance level 7-Ind to reside at Home with Fami ly/Relatives. MDM/PLAN: - Physical Therapy Decreased range of motion - to improve, our physical therapists will perform initial evaluation of p t's status upon admission and devise an individualized program for increasing patient's Range of Andrey on. Need for home safety evaluation - to improve, our physical therapists will perform initial evaluatio n of pt's status upon admission and devise an individualized program for Home Evaluation Need in caregiver upon discharge - to improve, our physical therapists will perform initial evaluati on of pt's status upon admission and devise an individualized program for Caregiver Training New precaution - to improve, our physical therapists will perform initial evaluation of pt's status upon admission and devise an individualized program for Patient precaution education Poor balance - to improve, our physical therapists will perform initial evaluation of pt's status up on admission and devise an individualized program for Balance Training Poor endurance - to improve, our physical therapists will perform initial evaluation of pt's status upon admission and devise an individualized program for Endurance Training Achieving independence - to improve, our physical therapists will perform initial evaluation of pt's status upon admission and devise an individualized program for Community Reintegration Activities - Occupational Therapy Need for resident care director - to improve, our occupation therapists will perform initial evaluation of pt's status upon admission and devise an individualized program for Caregiver Training - Other See attached MAR (Medication Administration Record) - Anterior Hip Precaution No abduction No active extension No adduction across midline No external rotation No hip flexion >90 degrees No internal rotation - Diet - Liquid Texture Continue Regular - Tube Feed Continue N/A - Diet Type Continue Regular - Posterior Hip Precaution No adduction across midline No external rotation No hip flexion >90 degrees No internal rotation No wheel chair propulsion - Weight Bearing Precaution WBAT right LE - Skin care per protocol - Diet - Solid Texture Continue Regular - Shower allowing shower FUNCTIONAL STATUS: UPDATED AT WEEKLY TEAM CONFERENCE - Bladder Same accident frequency: 7-Ind - No accidents in the past 7 days - Bowel Same accident frequency: 7-Ind - No accidents in the past 7 days - Walking Same score based on distance walked: 0(N/A) Same score based on distance walked: 1(<=50ft) - Wheelchair Same score based on distance traveled: 0(N/A) FUNCTIONAL STATUS: - Self-Care A. Eating Shashi B. Grooming Shashi C. Bathing sup D. Dressing - Upper sup E. Dressing - Lower Abril F. Toileting Abril - Sphincter Control G. Bladder control sup H. Bowel control sup - Transfers Control I. Bed/Chair/Wheelchair sup J. Toilet sup K. Tub/Shower Abril - Locomotion L. Walk/Wheelchair (B) Abril M. Stairs modA - Communication N. Comprehension (B) Shashi O. Expression (B) Shashi - Social Cognition P. Social Interaction Shashi Q. Problem Solving Shashi R. Memory Shashi - Endurance Fair - Balance Fair - Safety Awareness Fair QI SCORES: - Self-Care A. Eating 03-Partial/moderate assistance B. Oral hygiene 03-Partial/moderate assistance C. Toileting hygiene 03-Partial/moderate assistance E. Shower/bathe self 03-Partial/moderate assistance F. Upper body dressing 03-Partial/moderate assistance G. Lower body dressing 03-Partial/moderate assistance H. Putting on/taking off footwear 88-Not attempted due to medical condition or safety concerns - Mobility A. Roll left and right 03-Partial/moderate assistance B. Sit to lying 03-Partial/moderate assistance C. Lying to sitting on side of bed 03-Partial/moderate assistance D. Sit to stand 03-Partial/moderate assistance E. Chair/pjn-og-ulmgf transfer 03-Partial/moderate assistance F. Toilet transfer 03-Partial/moderate assistance G. Car transfer 88-Not attempted due to medical condition or safety concerns I. Walk 10 feet 88-Not attempted due to medical condition or safety concerns J. Walk 50 feet with two turns 88-Not attempted due to medical condition or safety concerns K. Walk 150 feet 88-Not attempted due to medical condition or safety concerns L. Walking 10 feet on uneven surfaces 88-Not attempted due to medical condition or safety concerns M. 1 step (curb) 88-Not attempted due to medical condition or safety concerns N. 4 steps 88-Not attempted due to medical condition or safety concerns O. 12 steps 88-Not attempted due to medical condition or safety concerns P. Picking up object 88-Not attempted due to medical condition or safety concerns R. Wheel 50 feet with two turns 88-Not attempted due to medical condition or safety concerns S. Wheel 150 feet 88-Not attempted due to medical condition or safety concerns - Bladder and Bowel Bladder continence Bowel continence - Endurance Good - Balance Good - Safety Awareness Good CURRENT FUNC. DEFICITS: Self-Care and Mobility SIGNATURE PANEL: (WET SUIT GLUER)
[2019-12-31] MEDS: ATORVASTATIN 80 MG TAB PO SCH (20:31)
[2019-12-31] MEDS ORDERED: INSULIN GLARGINE 100 UNITS/ML SQ SCH (21:00)
--- NOTE | 2019-12-31 21:05 | P.PN ---
Subjective Date of Service: 12/31/19 Chief Complaint: DOING GOOD. Subjective: Improving FEELS WELL HAD LOW GLUCOSE DOWN TO 66 THIS AM. Review of Systems 10-point ROS is otherwise unremarkable Physical Examination - Vital Signs Temperature: 97.6 F Blood Pressure: 96/59 Pulse: 79 Respirations: 16 Pulse Ox (%): 99 - Physical Exam General: Mild distress HEENT: Atraumatic, PERRLA, EOMI Neck: Supple, JVD not distended Respiratory: Clear to auscultation bilaterally, Normal air movement Cardiovascular: Regular rate/rhythm, Normal S1 S2 Gastrointestinal: Normal bowel sounds, No tenderness Musculoskeletal: No tenderness Integumentary: No rashes Neurological: Normal speech, Normal tone, Normal affect Lymphatics: No axilla or inguinal lymphadenopathy - Studies Laboratory Data (last 24 hrs) 12/30/19 20:58: LDL Cholesterol Direct 36 L 12/30/19 20:58: WBC 5.6 D, Hgb 10.2 L, Hct 29.2 L, Plt Count 134 L D Medications List Reviewed: Yes Assessment And Plan - Current Problems (Diagnosis) (1) Closed right hip fracture Current Visit: No Status: Acute Plan: CONT PT . FALL PREC. RESUME XARELTO 10 MG. HOPEFULLY WILL TOLERATE. NO CHANGES. MEDS REVIEWED. 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 Qualifiers: Encounter type: subsequent encounter (2) Diabetes type 2, controlled Onset Date: 03/05/17 Current Visit: No Status: Chronic Plan: FU ON LDL AND A1C DONE. GLUCOSE 160-200 QUYEN ADJUSE DOSES. GLUOCSE HAS GONE UP. DIET IS NOT THE BES. GLUCOSE IS HIGH FOOD CHOICES ARE POOR IN DIABETIC FOOD AT HOSPITAL EVEN. AT HOME HIS NUMBERS ARE NOT BAD. ADD 7 UNITS OF INSULIN BEFORE MEALS. HE IS ON HIGHER DOSE OF LANTUS HERE THAN AT HOME. DIABETIC DIET IN HOSPITAL IS NOT THE BEST. I RECOMMEND PALEO DIET WITH GOOD CARBS, PROTEIN AND FAT AND NOT PROCESSED FLOUR PRODUCTS LIKE YOU SEE HERE. ABOVE. REDUCE PM DOSE OF LANTUS. (3) Anemia Current Visit: Yes Status: Acute Plan: HOLD AC WILL DO LAB EVERY OTHER DAY. NO ACUTE BLEEDING HE CAN SEE HIS GI DOCTOR DIVINE DUENAS. ANEMIA CHARACTER IS OF CHRONIC DISEASE. LOW IRON, TIBC AND NORMAL FERRITIN. WILL FU. GIVE TWO UNITS OF PRBCS MDS IS THE REASON FOR ANEMIA. SHE HAS SEEN DR. MELENDEZ FOR IT 5 YEARS AGO. WILL FU RTNLY.
[2020-01-01 07:06] LABS: Absolute Lymphocytes (CBC) 1.3 K/uL (0.7-4.9); Hematocrit 29.8 % (39.6-49.0); Lymphocytes % 20.1 % (15.3-44.8); MPV 8.7 fL (7.6-11.3); RBC Red Blood Cell Count 3.46 M/uL (4.33-5.43)
[2020-01-01 07:13] LABS: Magnesium 2.1 mg/dL (1.8-2.4); Potassium 4.4 mmol/L (3.5-5.1); Prealbumin 16.5 mg/dL (20-40)
[2020-01-01] MEDS: INSULIN -REGULAR HUMAN 50 UNIT/0.5 ML ML SQ SCH ×4 (07:30→20:23)
[2020-01-01] MEDS: LEVOTHYROXINE SOD 0.05 MG TABLET PO SCH (07:36)
[2020-01-01] MEDS: LIDOCAINE 4% PATCH TOP SCH (07:37)
[2020-01-01] MEDS: CLOPIDOGREL 75 MG TABLET PO SCH (07:37)
[2020-01-01] MEDS: FE SULF/FA/VIT B COMP & C TAB PO SCH (07:37)
[2020-01-01] MEDS: DOCUSATE NA 100 MG CAP PO SCH ×2 (07:37→20:22)
[2020-01-01] MEDS: CRANBERRY FRUIT EXTRACT 200 MG CAP PO SCH ×2 (07:37→20:22)
[2020-01-01] MEDS: FINASTERIDE 5 MG TAB PO SCH (07:37)
[2020-01-01] MEDS: RIVAROXABAN 10 MG TABLET PO SCH (07:37)
[2020-01-01] MEDS: FERROUS SULFATE 325 MG TAB PO SCH (07:37)
[2020-01-01] MEDS: BACLOFEN 10 MG TAB PO SCH (07:37)
[2020-01-01] MEDS: JUVEN PACKET PO SCH ×2 (07:40→20:22)
[2020-01-01] MEDS ORDERED: INSULIN GLARGINE 100 UNITS/ML SQ SCH (08:00)
[2020-01-01] MEDS: INSULIN LISPRO 100 UNIT/1 ML SQ SCH ×3 (08:00→16:52)
[2020-01-01] MEDS: ATORVASTATIN 80 MG TAB PO SCH (20:22)
[2020-01-01] MEDS: INSULIN GLARGINE 100 UNITS/ML SQ SCH (20:23)
--- NOTE | 2020-01-01 20:36 | P.PN ---
Subjective Date of Service: 01/01/20 Chief Complaint: DOING GOOD. FEELS WELL HAD LOW GLUCOSE DOWN TO 66 THIS AM. HE IS STILL HERE , VERY STABLE FOR DAYS. GLUCOSE DROPPED THIS AM. NOW THAT HE IS NOT EATING PANCAKES ,HIS INSULIN NEED HAS REDUCED. Physical Examination - Vital Signs Temperature: 98.8 F Blood Pressure: 109/59 Pulse: 74 Respirations: 16 Pulse Ox (%): 97 - Studies Laboratory Data (last 24 hrs) 01/01/20 06:24: Sodium 140, Potassium 4.4, BUN 18, Creatinine 0.82, Glucose 60 L, Magnesium 2.1 01/01/20 06:24: WBC 6.3, Hgb 10.5 L, Hct 29.8 L, Plt Count 124 L Microbiology Data (last 24 hrs): 01/01/20 07:50 Nasopharnyx Coronavirus COVID-19 PCR - Final Medications List Reviewed: Yes Assessment And Plan - Current Problems (Diagnosis) (1) Closed right hip fracture Current Visit: No Status: Acute Plan: CONT PT . FALL PREC. RESUME XARELTO 10 MG. HOPEFULLY WILL TOLERATE. NO CHANGES. MEDS REVIEWED. 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 Qualifiers: Encounter type: subsequent encounter (2) Diabetes type 2, controlled Onset Date: 03/05/17 Current Visit: No Status: Chronic Plan: FU ON LDL AND A1C DONE. GLUCOSE 160-200 QUYEN ADJUSE DOSES. GLUOCSE HAS GONE UP. DIET IS NOT THE BES. GLUCOSE IS HIGH FOOD CHOICES ARE POOR IN DIABETIC FOOD AT HOSPITAL EVEN. AT HOME HIS NUMBERS ARE NOT BAD. ADD 7 UNITS OF INSULIN BEFORE MEALS. HE IS ON HIGHER DOSE OF LANTUS HERE THAN AT HOME. DIABETIC DIET IN HOSPITAL IS NOT THE BEST. I RECOMMEND PALEO DIET WITH GOOD CARBS, PROTEIN AND FAT AND NOT PROCESSED FLOUR PRODUCTS LIKE YOU SEE HERE. ABOVE. REDUCE PM DOSE OF LANTUS. (3) Anemia Current Visit: Yes Status: Acute Plan: HOLD AC WILL DO LAB EVERY OTHER DAY. NO ACUTE BLEEDING HE CAN SEE HIS GI DOCTOR DIVINE DUENAS. ANEMIA CHARACTER IS OF CHRONIC DISEASE. LOW IRON, TIBC AND NORMAL FERRITIN. WILL FU. GIVE TWO UNITS OF PRBCS MDS IS THE REASON FOR ANEMIA. SHE HAS SEEN DR. MELENDEZ FOR IT 5 YEARS AGO. WILL FU HG RTNLY.
[2020-01-02] MEDS: LEVOTHYROXINE SOD 0.05 MG TABLET PO SCH (06:33)
[2020-01-02] MEDS: INSULIN -REGULAR HUMAN 50 UNIT/0.5 ML ML SQ SCH ×4 (07:30→20:50)
[2020-01-02] MEDS: JUVEN PACKET PO SCH ×2 (08:15→20:49)
[2020-01-02] MEDS: TRAMADOL HCL 50 MG TAB PO PRN ×2 (08:17→12:41)
[2020-01-02] MEDS: INSULIN LISPRO 100 UNIT/1 ML SQ SCH ×3 (08:19→16:46)
[2020-01-02] MEDS: INSULIN GLARGINE 100 UNITS/ML SQ SCH ×2 (08:19→20:49)
[2020-01-02] MEDS: CRANBERRY FRUIT EXTRACT 200 MG CAP PO SCH ×2 (08:19→20:49)
[2020-01-02] MEDS: FINASTERIDE 5 MG TAB PO SCH (08:19)
[2020-01-02] MEDS: FE SULF/FA/VIT B COMP & C TAB PO SCH (08:19)
[2020-01-02] MEDS: DOCUSATE NA 100 MG CAP PO SCH ×2 (08:20→20:49)
[2020-01-02] MEDS: BACLOFEN 10 MG TAB PO SCH (08:20)
[2020-01-02] MEDS: RIVAROXABAN 10 MG TABLET PO SCH (08:20)
[2020-01-02] MEDS: CLOPIDOGREL 75 MG TABLET PO SCH (08:21)
[2020-01-02] MEDS: FERROUS SULFATE 325 MG TAB PO SCH (08:21)
--- NOTE | 2020-01-02 09:52 | P.RH.PN ---
Estimated Length of Stay: 24 Expected Discharge Date: 01/06/20 Discharge Disposition Plan: Home Family Support: Yes [facility] Goal: Mobility, Transfers, Self Care Vital Signs: Last Vital Signs Temp 98.2 F 01/02/20 07:51 Pulse 66 01/02/20 07:51 Resp 16 01/02/20 08:17 BP 114/61 01/02/20 07:51 Pulse Ox 95 01/02/20 08:17 Laboratory: Laboratory Last Values WBC 6.3 K/uL (4.3-10.9) 01/01/20 06:24 RBC 3.46 M/uL (4.33-5.43) L 01/01/20 06:24 Hgb 10.5 g/dL (13.6-17.9) L 01/01/20 06:24 Hct 29.8 % (39.6-49.0) L 01/01/20 06:24 MCV 86.1 fL (80-100) 01/01/20 06:24 MCH 30.3 pg (27.0-35.0) 01/01/20 06:24 MCHC 35.2 g/dL (32.0-36.0) 01/01/20 06:24 RDW 16.3 % (12.1-15.2) H 01/01/20 06:24 Plt Count 124 K/uL (152-406) L 01/01/20 06:24 MPV 8.7 fL (7.6-11.3) 01/01/20 06:24 Neutrophils % 68.6 % (41.7-73.7) 01/01/20 06:24 Lymphocytes % 20.1 % (15.3-44.8) 01/01/20 06:24 Monocytes % 7.9 % (3.3-12.3) 01/01/20 06:24 Eosinophils % 2.4 % (0-4.4) 01/01/20 06:24 Basophils % 1.0 % (0-1.3) 01/01/20 06:24 Absolute Neutrophils 4.3 K/uL (1.8-8.0) 01/01/20 06:24 Segmented Neutrophils 71 % (40-80) 12/20/19 06:02 Band Neutrophils 3 % (0-1) H 12/20/19 06:02 Absolute Lymphocytes 1.3 K/uL (0.7-4.9) 01/01/20 06:24 Lymphocytes 17 % (15-42) 12/20/19 06:02 Monocytes 5 % (0-10) 12/20/19 06:02 Absolute Monocytes 0.5 K/uL (0.1-1.3) 01/01/20 06:24 Eosinophils 2 % (0-3) 12/20/19 06:02 Absolute Eosinophils 0.2 K/uL (0-0.5) 01/01/20 06:24 Absolute Basophils 0.1 K/uL (0-0.5) 01/01/20 06:24 Metamyelocytes 2 % (0-0) H 12/20/19 06:02 Platelet Estimate Adeq 12/25/19 06:08 Clumped Platelets Few 12/16/19 05:43 Morphology Comment Not seen (NOT SEEN) 12/25/19 06:08 Absolute Retic 0.08 M/uL (0.02-0.11) 12/19/19 06:02 Percent Retic 3.10 % (0.4-2.05) H 12/19/19 06:02 Sodium 140 mmol/L (136-145) 01/01/20 06:24 Potassium 4.4 mmol/L (3.5-5.1) 01/01/20 06:24 Chloride 106 mmol/L (98-107) 01/01/20 06:24 Carbon Dioxide 32 mmol/L (21-32) 01/01/20 06:24 BUN 18 mg/dL (7-18) 01/01/20 06:24 Creatinine 0.82 mg/dL (0.55-1.3) 01/01/20 06:24 Estimated GFR 90 mL/min (=/>90) 01/01/20 06:24 Glucose 60 mg/dL (74-106) L 01/01/20 06:24 POC Glucose 149 mg/dL (65-120) H 01/02/20 07:43 Hemoglobin A1c 6.6 % (4.2-6.3) H 12/30/19 20:58 Calcium 9.0 mg/dL (8.5-10.1) 01/01/20 06:24 Magnesium 2.1 mg/dL (1.8-2.4) 01/01/20 06:24 Iron 36.0 ug/dL (65-175) L 12/19/19 06:02 TIBC 199 ug/dL (250-460) L 12/19/19 06:02 Transferrin 142 mg/dL (200-360) L 12/19/19 06:02 Transferrin % Sat 18.1 % (20.0-50.0) L 12/19/19 06:02 Ferritin 169.9 ng/mL (26-388) 12/19/19 06:02 Total Protein 4.7 g/dL (6.1-8.1) L 12/19/19 06:02 Albumin 3.0 g/dL (3.4-5.0) L 01/01/20 06:24 Prealbumin 16.5 mg/dL (20-40) L 01/01/20 06:24 Asmmu-6-Bsdrtfpsp 0.5 g/dL (0.2-0.3) H 12/19/19 06:02 Zakhh-0-Ukmvukvtm 0.6 g/dL (0.5-0.9) 12/19/19 06:02 Gamma Globulins 0.6 g/dL (0.8-1.7) L 12/19/19 06:02 M-Doug Report 12/19/19 06:02 M-Doug 2 NET SOFTWARE ARCHITECT 12/19/19 06:02 Abnorm Protein Band 3 NET SOFTWARE ARCHITECT 12/19/19 06:02 PEP Interpretation Report H 12/19/19 06:02 LDL Cholesterol Direct 36 mg/dL (100-129) L 12/30/19 20:58 Vitamin B12 847 pg/mL (193-986) 12/19/19 06:02 Urine Color Yellow 12/19/19 07:30 Urine Appearance Clear 12/19/19 07:30 Urine pH 7.5 (5.0-7.0) H 12/19/19 07:30 Ur Specific [place] 1.015 (1.005-1.030) 12/19/19 07:30 Glucose (UA)(Auto) Negative (NEG) 12/19/19 07:30 Urine Ketones Negative (NEG) 12/19/19 07:30 Urine Blood Negative (NEG) 12/19/19 07:30 Urine Nitrite Negative (NEG) 12/19/19 07:30 Urine Bilirubin Negative (NEG) 12/19/19 07:30 Urine Urobilinogen 4.0 mg/dL (0.2-1.0) H 12/19/19 07:30 Ur Leukocyte Esterase 3+ (NEG) H 12/19/19 07:30 Urine RBC <5 /HPF (NONE SEEN) 12/19/19 07:30 Urine WBC >50 /HPF (<5) H 12/19/19 07:30 Ur Squamous Epith Cells 10-20 /HPF (NONE SEEN) H 12/19/19 07:30 Urine Bacteria <20 /HPF (NONE SEEN) 12/19/19 07:30 Hyaline Casts None seen /LPF (NONE SEEN) 12/19/19 07:30 Urine Mucus 2+ /HPF (NONE SEEN) 12/15/19 16:30 Urine Culture Reflexed Reflexed 12/19/19 07:30 Urine Total Protein Negative (NEG) 12/19/19 07:30 Smear Scan Ok (OK) 12/25/19 06:08 ABO/Rh A NEGATIVE 12/19/19 07:52 Solid Phase Ab Screen Negative 12/19/19 07:52 Crossmatch See Detail 12/19/19 07:52 Weight: 206 lb 9.6 oz Wound Present: No Closed Surgical Incision Present: Yes Negative Pressure Wound Therapy Present: No Physician Update: Labs reviewed and are stable. His right groin pain is better but reports a 3/10 but he was able to do ADLs. He is walking 250', up and down 15 steps with independence. He will go home Sunday with [facility] health. Functional Improvement: pt has demonstrated significant improvement throughout the week. He has enhanced his tolerance to ambulation and overball balance and stability during gait. pt is on track to meet his functional goals and discharge home. Summary: Patient's care plan and jail goals have been reviewed and revised as necessary. Please see the Rehabilitation Signature page for all necessary signatures.
[2020-01-02] MEDS: LIDOCAINE 4% PATCH TOP SCH (10:12)
--- NOTE | 2020-01-02 12:15 | R.PN ---
PROGRESS NOTES ENCOUNTER DATE AND TIME: 01/01/2020 20:20 (BRAZER RESISTANCE) NAME KRYSTIAN RUBIN DATE OF : 1935 DATE OF ADMISSION: 12/15/2019 12:43 (BRAZER RESISTANCE) RIGHT HIP FRACTURECHIEF COMPLAINT: Right hip fracture SUBJECTIVE: Pt denied any depression. Pt denied any Shortness of Breath. WBC 6.3, Hgb 10.5, Plt 124, glucose 65 to 185, prealbumin 14.9. Xarelto was D/Emeka. He is using SCDs. UA esterase 3+, WBC TNTC. Patient states that pain is under control. Multiple sit to stand done with standby assistance. Ambulated 500' with independence using a rolling walker. Up and down 15 steps with independence. VITAL SIGNS Temperature: 98.8 F SBP/DBP: 109/59 Pulse: 74 Resp: 16 MEDICATION ALLERGIES: No Known Drug Allergies (NKDA) ENVIRONMENTAL ALLERGIES: - Substance Allergies None Known - Other Allergies None Known NURSING: - Shower allowing shower - Skin care per protocol PRECAUTIONS: - Anterior Hip Precaution No abduction No active extension No adduction across midline No external rotation No hip flexion >90 degrees No internal rotation - Posterior Hip Precaution No adduction across midline No external rotation No hip flexion >90 degrees No internal rotation No wheel chair propulsion - Weight Bearing Precaution WBAT right LE ACTIVITIES OOB only with supervision THERAPIES: - Dietary and Nutrition Adequate Nutrition. Nutritional Education. Nutritional Supplements. PHYSICAL EXAM - Gen Alert and awake Lying in bed No apparent distress Oriented to: person, time, and place - Skin No breakdown Normacephalic - Eyes No abnormalities - ENMT No abnormalities - Neck No abnormalities - CVS RRR - Chest No abnormalities - Resp Clear to auscultation - Abd Soft - GI + bowel sounds Deferred - No abnormalities - Ext Right hip surgical site has good hemostasis. - MSK 4+/5 weakness in right lower extremity - Neuro 4/5 strength right lower extremity. - Psych No abnormalities ASSESSMENT: Pt. is a 84 yo Right-handed male of unknown race.On 12/11/2019 he was admitted to [facility] with diagnosis RIGHT HIP FRACTURE.His impairment category is Orthopaedic Disorders 08 - Unilate ral Hip Fracture (08.11).Pre-morbidly, Pt. was independent/mod-I in Safety Awareness, Self-Care, and Communication; and he had good Sphincter Control, Transfers Control, and Locomotion.Currently, he has deficits of Endurance, Safety Awareness, Locomotion, Balance, and Sphincter Control.Pt. is now refer red to [facility] for acute in-patient rehabilitation in order to maximize john solano's functional independence in activities of daily living, strength, ROM, and mobility.- Rehab Tutu l Patient has realistic goal of being discharged at assistance level 7-Ind to reside at Home with Fami ly/Relatives. MDM/PLAN: - Physical Therapy Decreased range of motion - to improve, our physical therapists will perform initial evaluation of p t's status upon admission and devise an individualized program for increasing patient's Range of Andrey on. Need for home safety evaluation - to improve, our physical therapists will perform initial evaluatio n of pt's status upon admission and devise an individualized program for Home Evaluation Need in caregiver upon discharge - to improve, our physical therapists will perform initial evaluati on of pt's status upon admission and devise an individualized program for Caregiver Training New precaution - to improve, our physical therapists will perform initial evaluation of pt's status upon admission and devise an individualized program for Patient precaution education Poor balance - to improve, our physical therapists will perform initial evaluation of pt's status up on admission and devise an individualized program for Balance Training Poor endurance - to improve, our physical therapists will perform initial evaluation of pt's status upon admission and devise an individualized program for Endurance Training Achieving independence - to improve, our physical therapists will perform initial evaluation of pt's status upon admission and devise an individualized program for Community Reintegration Activities - Occupational Therapy Need for technical healthcare consultant - to improve, our occupation therapists will perform initial evaluation of pt's status upon admission and devise an individualized program for Caregiver Training - Other See attached MAR (Medication Administration Record) - Anterior Hip Precaution No abduction No active extension No adduction across midline No external rotation No hip flexion >90 degrees No internal rotation - Diet - Liquid Texture Continue Regular - Tube Feed Continue N/A - Diet Type Continue Regular - Posterior Hip Precaution No adduction across midline No external rotation No hip flexion >90 degrees No internal rotation No wheel chair propulsion - Weight Bearing Precaution WBAT right LE - Skin care per protocol - Diet - Solid Texture Continue Regular - Shower allowing shower FUNCTIONAL STATUS: UPDATED AT WEEKLY TEAM CONFERENCE - Bladder Same accident frequency: 7-Ind - No accidents in the past 7 days - Bowel Same accident frequency: 7-Ind - No accidents in the past 7 days - Walking Same score based on distance walked: 0(N/A) Same score based on distance walked: 1(<=50ft) - Wheelchair Same score based on distance traveled: 0(N/A) FUNCTIONAL STATUS: - Self-Care A. Eating Shashi B. Grooming Shashi C. Bathing sup D. Dressing - Upper sup E. Dressing - Lower Abril F. Toileting Abril - Sphincter Control G. Bladder control sup H. Bowel control sup - Transfers Control I. Bed/Chair/Wheelchair sup J. Toilet sup K. Tub/Shower Abril - Locomotion L. Walk/Wheelchair (B) Abril M. Stairs modA - Communication N. Comprehension (B) Shashi O. Expression (B) Shashi - Social Cognition P. Social Interaction Shashi Q. Problem Solving Shashi R. Memory Shashi - Endurance Fair - Balance Fair - Safety Awareness Fair QI SCORES: - Self-Care A. Eating 03-Partial/moderate assistance B. Oral hygiene 03-Partial/moderate assistance C. Toileting hygiene 03-Partial/moderate assistance E. Shower/bathe self 03-Partial/moderate assistance F. Upper body dressing 03-Partial/moderate assistance G. Lower body dressing 03-Partial/moderate assistance H. Putting on/taking off footwear 88-Not attempted due to medical condition or safety concerns - Mobility A. Roll left and right 03-Partial/moderate assistance B. Sit to lying 03-Partial/moderate assistance C. Lying to sitting on side of bed 03-Partial/moderate assistance D. Sit to stand 03-Partial/moderate assistance E. Chair/fsh-gq-qgyse transfer 03-Partial/moderate assistance F. Toilet transfer 03-Partial/moderate assistance G. Car transfer 88-Not attempted due to medical condition or safety concerns I. Walk 10 feet 88-Not attempted due to medical condition or safety concerns J. Walk 50 feet with two turns 88-Not attempted due to medical condition or safety concerns K. Walk 150 feet 88-Not attempted due to medical condition or safety concerns L. Walking 10 feet on uneven surfaces 88-Not attempted due to medical condition or safety concerns M. 1 step (curb) 88-Not attempted due to medical condition or safety concerns N. 4 steps 88-Not attempted due to medical condition or safety concerns O. 12 steps 88-Not attempted due to medical condition or safety concerns P. Picking up object 88-Not attempted due to medical condition or safety concerns R. Wheel 50 feet with two turns 88-Not attempted due to medical condition or safety concerns S. Wheel 150 feet 88-Not attempted due to medical condition or safety concerns - Bladder and Bowel Bladder continence Bowel continence - Endurance Good - Balance Good - Safety Awareness Good CURRENT FUNC. DEFICITS: Self-Care and Mobility SIGNATURE PANEL: (BRAZER RESISTANCE)
--- NOTE | 2020-01-02 15:06 | P.PN ---
Subjective Date of Service: 01/02/20 Chief Complaint: DOING GOOD. Subjective: Improving FEELS WELL HAD LOW GLUCOSE DOWN TO 66 THIS AM. HE IS STILL HERE , VERY STABLE FOR DAYS. GLUCOSE DROPPED THIS AM. NOW THAT HE IS NOT EATING PANCAKES ,HIS INSULIN NEED HAS REDUCED. HE IS STABLE. CONT PT. Physical Examination - Vital Signs Temperature: 98.2 F Blood Pressure: 114/61 Pulse: 66 Respirations: 16 Pulse Ox (%): 95 - Studies Microbiology Data (last 24 hrs): 01/01/20 07:50 Nasopharnyx Coronavirus COVID-19 PCR - Final Medications List Reviewed: Yes Assessment And Plan - Current Problems (Diagnosis) (1) Closed right hip fracture Current Visit: No Status: Acute Plan: CONT PT . FALL PREC. RESUME XARELTO 10 MG. HOPEFULLY WILL TOLERATE. NO CHANGES. MEDS REVIEWED. 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 Qualifiers: Encounter type: subsequent encounter (2) Diabetes type 2, controlled Onset Date: 03/05/17 Current Visit: No Status: Chronic Plan: FU ON LDL AND A1C DONE. GLUCOSE 160-200 QUYEN ADJUSE DOSES. GLUOCSE HAS GONE UP. DIET IS NOT THE BES. GLUCOSE IS HIGH FOOD CHOICES ARE POOR IN DIABETIC FOOD AT HOSPITAL EVEN. AT HOME HIS NUMBERS ARE NOT BAD. ADD 7 UNITS OF INSULIN BEFORE MEALS. HE IS ON HIGHER DOSE OF LANTUS HERE THAN AT HOME. DIABETIC DIET IN HOSPITAL IS NOT THE BEST. I RECOMMEND PALEO DIET WITH GOOD CARBS, PROTEIN AND FAT AND NOT PROCESSED FLOUR PRODUCTS LIKE YOU SEE HERE. ABOVE. REDUCE PM DOSE OF LANTUS. (3) Anemia Current Visit: Yes Status: Acute Plan: HOLD AC WILL DO LAB EVERY OTHER DAY. NO ACUTE BLEEDING HE CAN SEE HIS GI DOCTOR DIVINE DUENAS. ANEMIA CHARACTER IS OF CHRONIC DISEASE. LOW IRON, TIBC AND NORMAL FERRITIN. WILL FU. GIVE TWO UNITS OF PRBCS MDS IS THE REASON FOR ANEMIA. SHE HAS SEEN DR. MELENDEZ FOR IT 5 YEARS AGO. WILL FU HG RTNLY.
[2020-01-02] MEDS: ATORVASTATIN 80 MG TAB PO SCH (20:49)
[2020-01-03] MEDS: LEVOTHYROXINE SOD 0.05 MG TABLET PO SCH (06:47)
[2020-01-03] MEDS: INSULIN -REGULAR HUMAN 50 UNIT/0.5 ML ML SQ SCH ×4 (07:30→21:00)
[2020-01-03] MEDS: JUVEN PACKET PO SCH ×2 (08:00→21:27)
[2020-01-03] MEDS: FERROUS SULFATE 325 MG TAB PO SCH (08:40)
[2020-01-03] MEDS: FINASTERIDE 5 MG TAB PO SCH (08:40)
[2020-01-03] MEDS: CRANBERRY FRUIT EXTRACT 200 MG CAP PO SCH ×2 (08:40→21:25)
[2020-01-03] MEDS: LIDOCAINE 4% PATCH TOP SCH (08:40)
[2020-01-03] MEDS: RIVAROXABAN 10 MG TABLET PO SCH (08:41)
[2020-01-03] MEDS: FE SULF/FA/VIT B COMP & C TAB PO SCH (08:41)
[2020-01-03] MEDS: DOCUSATE NA 100 MG CAP PO SCH ×2 (08:41→21:25)
[2020-01-03] MEDS: BACLOFEN 10 MG TAB PO SCH (08:41)
[2020-01-03] MEDS: CLOPIDOGREL 75 MG TABLET PO SCH (08:41)
[2020-01-03] MEDS: ACETAMINOPHEN 500 MG TAB PO PRN (08:42)
[2020-01-03] MEDS: INSULIN LISPRO 100 UNIT/1 ML SQ SCH ×3 (08:43→17:23)
[2020-01-03] MEDS: INSULIN GLARGINE 100 UNITS/ML SQ SCH ×2 (08:43→21:26)
--- NOTE | 2020-01-03 13:11 | P.PN ---
Subjective Date of Service: 01/03/20 Chief Complaint: DOING GOOD. Subjective: Improving FEELS WELL HAD LOW GLUCOSE DOWN TO 66 THIS AM. HE IS STILL HERE , VERY STABLE FOR DAYS. GLUCOSE DROPPED THIS AM. NOW THAT HE IS NOT EATING PANCAKES ,HIS INSULIN NEED HAS REDUCED. HE IS STABLE. CONT PT. HE IS BETTER WHEN I ASKED HIM TO AVOID PANCAKES AND BUISCUITS FROM HIS FOOD HERE. HE IS EAGER TO GO HOME. Physical Examination - Vital Signs Temperature: 98.2 F Blood Pressure: 121/67 Pulse: 67 Respirations: 20 Pulse Ox (%): 100 - Physical Exam General: Alert, In no apparent distress HEENT: Atraumatic, PERRLA, EOMI Neck: Supple, JVD not distended Respiratory: Clear to auscultation bilaterally, Normal air movement Cardiovascular: Regular rate/rhythm, Normal S1 S2 Gastrointestinal: Normal bowel sounds, No tenderness Musculoskeletal: No tenderness Integumentary: No rashes Neurological: Normal speech, Normal tone, Normal affect Lymphatics: No axilla or inguinal lymphadenopathy - Studies Medications List Reviewed: Yes Assessment And Plan - Current Problems (Diagnosis) (1) Closed right hip fracture Current Visit: No Status: Acute Plan: CONT PT . FALL PREC. RESUME XARELTO 10 MG. HOPEFULLY WILL TOLERATE. NO CHANGES. MEDS REVIEWED. 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 Qualifiers: Encounter type: subsequent encounter (2) Diabetes type 2, controlled Onset Date: 03/05/17 Current Visit: No Status: Chronic Plan: FU ON LDL AND A1C DONE. GLUCOSE 160-200 QUYEN ADJUSE DOSES. GLUOCSE HAS GONE UP. DIET IS NOT THE BES. GLUCOSE IS HIGH FOOD CHOICES ARE POOR IN DIABETIC FOOD AT HOSPITAL EVEN. AT HOME HIS NUMBERS ARE NOT BAD. ADD 7 UNITS OF INSULIN BEFORE MEALS. HE IS ON HIGHER DOSE OF LANTUS HERE THAN AT HOME. DIABETIC DIET IN HOSPITAL IS NOT THE BEST. I RECOMMEND PALEO DIET WITH GOOD CARBS, PROTEIN AND FAT AND NOT PROCESSED FLOUR PRODUCTS LIKE YOU SEE HERE. ABOVE. REDUCE PM DOSE OF LANTUS. (3) Anemia Current Visit: Yes Status: Acute Plan: HOLD AC WILL DO LAB EVERY OTHER DAY. NO ACUTE BLEEDING HE CAN SEE HIS GI DOCTOR DIVINE DUENSA. ANEMIA CHARACTER IS OF CHRONIC DISEASE. LOW IRON, TIBC AND NORMAL FERRITIN. WILL FU. GIVE TWO UNITS OF PRBCS MDS IS THE REASON FOR ANEMIA. SHE HAS SEEN DR. MELENDEZ FOR IT 5 YEARS AGO. WILL CAMILA RTNLY.
--- NOTE | 2020-01-03 14:01 | FAST ---
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 Gopal Merrill M.D. ADMISSION DIAGNOSIS: - Orthopaedic Disorders 08 - Unilateral Hip Fracture (08.11) RIGHT HIP FRACTURE. EATING: EATING - STEP 1: Does the patient complete the activity by him/herself with no assistance (physical, verbal/nonverbal cueing, setup/clean-up)? No. EATING - STEP 2: Does the patient need only setup/clean-up assistance from one helper? Yes. 1. [id number] ADMISSION PERFORMANCE: Setup or clean-up assistance CODE: 05 ORAL HYGIENE: ORAL HYGIENE - STEP 1: Does the patient complete the activity by him/herself with no assistance (physical, verbal/nonverbal cueing, setup/clean-up)? No. ORAL HYGIENE - STEP 2: Does the patient need only setup/clean-up assistance from one helper? Yes. 1. [id number] ADMISSION PERFORMANCE: Setup or clean-up assistance CODE: 05 TOILETING HYGIENE: TOILETING HYGIENE - STEP 1: Does the patient complete the activity by him/herself with no assistance (physical, verbal/nonverbal cueing, setup/clean-up)? No. TOILETING HYGIENE - STEP 2: Does the patient need only setup/clean-up assistance from one helper? No. TOILETING HYGIENE - STEP 3: Does the patient need only verbal/nonverbal cueing or touching/steadying/contact guard assistance fro m one helper? Yes. 1. [id number] ADMISSION PERFORMANCE: Supervision or touching assistance CODE: 04 BATHING: Not assessed/no information CODE: - DRESSING - UPPER BODY: DRESSING - UPPER BODY - STEP 1: Does the patient complete the activity by him/herself with no assistance (physical, verbal/nonverbal cueing, setup/clean-up)? No. DRESSING - UPPER BODY - STEP 2: Does the patient need only setup/clean-up assistance from one helper? No. DRESSING - UPPER BODY - STEP 3: Does the patient need only verbal/nonverbal cueing or touching/steadying/contact guard assistance fro m one helper? Yes. 1. [id number] ADMISSION PERFORMANCE: Supervision or touching assistance CODE: 04 DRESSING - LOWER BODY: DRESSING - LOWER BODY - STEP 1: Does the patient complete the activity by him/herself with no assistance (physical, verbal/nonverbal cueing, setup/clean-up)? No. DRESSING - LOWER BODY - STEP 2: Does the patient need only setup/clean-up assistance from one helper? No. DRESSING - LOWER BODY - STEP 3: Does the patient need only verbal/nonverbal cueing or touching/steadying/contact guard assistance fro m one helper? Yes. 1. [id number] ADMISSION PERFORMANCE: Supervision or touching assistance CODE: 04 PUTTING ON/TAKING OFF FOOTWEAR: FOOTWEAR - STEP 1: Does the patient complete the activity by him/herself with no assistance (physical, verbal/nonverbal cueing, setup/clean-up)? No. FOOTWEAR - STEP 2: Does the patient need only setup/clean-up assistance from one helper? No. FOOTWEAR - STEP 3: Does the patient need only verbal/nonverbal cueing or touching/steadying/contact guard assistance fro m one helper? Yes. 1. [id number] ADMISSION PERFORMANCE: Supervision or touching assistance CODE: 04 ROLL LEFT AND RIGHT: ROLL LEFT AND RIGHT - STEP 1: Does the patient complete the activity by him/herself with no assistance (physical, verbal/nonverbal cueing, setup/clean-up)? No. ROLL LEFT AND RIGHT - STEP 2: Does the patient need only setup/clean-up assistance from one helper? No. ROLL LEFT AND RIGHT - STEP 3: Does the patient need only verbal/nonverbal cueing or touching/steadying/contact guard assistance fro m one helper? Yes. 1. [id number] ADMISSION PERFORMANCE: Supervision or touching assistance CODE: 04 SIT TO LYING: SIT TO LYING - STEP 1: Does the patient complete the activity by him/herself with no assistance (physical, verbal/nonverbal cueing, setup/clean-up)? No. SIT TO LYING - STEP 2: Does the patient need only setup/clean-up assistance from one helper? No. SIT TO LYING - STEP 3: Does the patient need only verbal/nonverbal cueing or touching/steadying/contact guard assistance fro m one helper? Yes. 1. [id number] ADMISSION PERFORMANCE: Supervision or touching assistance CODE: 04 LYING TO SITTING: LYING TO SITTING ON SIDE OF BED - STEP 1: Does the patient complete the activity by him/herself with no assistance (physical, verbal/nonverbal cueing, setup/clean-up)? No. LYING TO SITTING ON SIDE OF BED - STEP 2: Does the patient need only setup/clean-up assistance from one helper? No. LYING TO SITTING ON SIDE OF BED - STEP 3: Does the patient need only verbal/nonverbal cueing or touching/steadying/contact guard assistance fro m one helper? Yes. 1. [id number] ADMISSION PERFORMANCE: Supervision or touching assistance CODE: 04 SIT TO STAND: SIT TO STAND - STEP 1: Does the patient complete the activity by him/herself with no assistance (physical, verbal/nonverbal cueing, setup/clean-up)? No. SIT TO STAND - STEP 2: Does the patient need only setup/clean-up assistance from one helper? No. SIT TO STAND - STEP 3: Does the patient need only verbal/nonverbal cueing or touching/steadying/contact guard assistance fro m one helper? Yes. 1. [id number] ADMISSION PERFORMANCE: Supervision or touching assistance CODE: 04 TRANSFERS: BED, CHAIR: CHAIR/[id number] TRANSFER - STEP 1: Does the patient complete the activity by him/herself with no assistance (physical, verbal/nonverbal cueing, setup/clean-up)? No. CHAIR/[id number] TRANSFER - STEP 2: Does the patient need only setup/clean-up assistance from one helper? No. CHAIR/[id number] TRANSFER - STEP 3: Does the patient need only verbal/nonverbal cueing or touching/steadying/contact guard assistance fro m one helper? Yes. 1. [id number] ADMISSION PERFORMANCE: Supervision or touching assistance CODE: 04 TRANSFER TOILET: TOILET TRANSFER - STEP 1: Does the patient complete the activity by him/herself with no assistance (physical, verbal/nonverbal cueing, setup/clean-up)? No. TOILET TRANSFER - STEP 2: Does the patient need only setup/clean-up assistance from one helper? No. TOILET TRANSFER - STEP 3: Does the patient need only verbal/nonverbal cueing or touching/steadying/contact guard assistance fro m one helper? Yes. 1. [id number] ADMISSION PERFORMANCE: Supervision or touching assistance CODE: 04 TRANSFERS: CAR: Not assessed/no information CODE: - WALK 10 FEET: Not assessed/no information CODE: - 1 STEP (CURB): Not assessed/no information CODE: - PICKING UP OBJECT: Not assessed/no information CODE: - DOES THE PATIENT USE A WHEELCHAIR/SCOOTER? Q1. DOES THE PATIENT USE A WHEELCHAIR/SCOOTER?: Yes CODE: 1 WHEEL 50 FEET WITH TWO TURNS: WHEEL 50 FEET WITH TWO TURNS - STEP 1: Does the patient complete the activity by him/herself with no assistance (physical, verbal/nonverbal cueing, setup/clean-up)? No. WHEEL 50 FEET WITH TWO TURNS - STEP 2: Does the patient need only setup/clean-up assistance from one helper? No. WHEEL 50 FEET WITH TWO TURNS - STEP 3: Does the patient need only verbal/nonverbal cueing or touching/steadying/contact guard assistance fro m one helper? Yes. 1. [id number] ADMISSION PERFORMANCE: Supervision or touching assistance CODE: 04 INDICATE THE TYPE OF WHEELCHAIR/SCOOTER USED: RR1. INDICATE THE TYPE OF WHEELCHAIR/SCOOTER USED.: Manual CODE: 1 WHEEL 150 FEET: WHEEL 150 FEET - STEP 1: Does the patient complete the activity by him/herself with no assistance (physical, verbal/nonverbal cueing, setup/clean-up)? No. WHEEL 150 FEET - STEP 2: Does the patient need only setup/clean-up assistance from one helper? No. WHEEL 150 FEET - STEP 3: Does the patient need only verbal/nonverbal cueing or touching/steadying/contact guard assistance fro m one helper? Yes. 1. [id number] ADMISSION PERFORMANCE: Supervision or touching assistance CODE: 04 INDICATE THE TYPE OF WHEELCHAIR/SCOOTER USED: SS1. INDICATE THE TYPE OF WHEELCHAIR/SCOOTER USED.: Manual CODE: 1 BLADDER AND BOWEL: H350. BLADDER CONTINENCE (3-DAY ASSESSMENT PERIOD): Always continent (no documented incontinence) CODE: 0 H400. BOWEL CONTINENCE (3-DAY ASSESSMENT PERIOD): Always continent CODE: 0 SIGNATURE PANEL: The following modified sections: 1. [id number] Admission Performance, 1. [id number] Admission Performance, 1. [id number] Admission Performance, 1. [id number] Admission Performance, 1. [id number] Admission Performance, 1. [id number] Admission Performance, 1. [id number] Admission Performance, 1. [id number] Admission Performance , 1. [id number] Admission Performance, 1. [id number] Admission Performance, 1. [id number] Admission Performanc e, 1. [id number] Admission Performance, Q1. Does the patient use a wheelchair/scooter?, 1. [id number] Admis celine Performance, RR1. Indicate the type of wheelchair/scooter used., 1. [id number] Admission Performanc e, Code, SS1. Indicate the type of wheelchair/scooter used., H350. Bladder Continence (3-day assessme nt period), H400. Bowel Continence (3-day assessment period) were [electronically] signed by Vanessa Chi C.N.ABreana on Sat Jan 03 2020 14:00:57 GMT-0600 (Central Standard Time)
[2020-01-03] MEDS: ATORVASTATIN 80 MG TAB PO SCH (21:25)
[2020-01-04] MEDS: LEVOTHYROXINE SOD 0.05 MG TABLET PO SCH (07:23)
[2020-01-04] MEDS: INSULIN -REGULAR HUMAN 50 UNIT/0.5 ML ML SQ SCH ×4 (07:30→20:13)
[2020-01-04] MEDS: LIDOCAINE 4% PATCH TOP SCH (08:00)
[2020-01-04] MEDS: RIVAROXABAN 10 MG TABLET PO SCH (08:40)
[2020-01-04] MEDS: CLOPIDOGREL 75 MG TABLET PO SCH (08:43)
[2020-01-04] MEDS: FINASTERIDE 5 MG TAB PO SCH (08:43)
[2020-01-04] MEDS: FERROUS SULFATE 325 MG TAB PO SCH (08:44)
[2020-01-04] MEDS: ACETAMINOPHEN 500 MG TAB PO PRN (08:44)
[2020-01-04] MEDS: FE SULF/FA/VIT B COMP & C TAB PO SCH (08:44)
[2020-01-04] MEDS: DOCUSATE NA 100 MG CAP PO SCH ×2 (08:44→20:12)
[2020-01-04] MEDS: CRANBERRY FRUIT EXTRACT 200 MG CAP PO SCH ×2 (08:44→20:12)
[2020-01-04] MEDS: BACLOFEN 10 MG TAB PO SCH (08:44)
[2020-01-04] MEDS: INSULIN LISPRO 100 UNIT/1 ML SQ SCH ×3 (08:46→17:45)
[2020-01-04] MEDS: INSULIN GLARGINE 100 UNITS/ML SQ SCH ×2 (08:46→20:12)
[2020-01-04] MEDS: JUVEN PACKET PO SCH ×2 (08:47→21:38)
--- NOTE | 2020-01-04 11:07 | P.PN ---
Subjective Date of Service: 01/04/20 Chief Complaint: DOING GOOD. Subjective: Improving FEELS WELL HAD LOW GLUCOSE DOWN TO 66 THIS AM. HE IS STILL HERE , VERY STABLE FOR DAYS. GLUCOSE DROPPED THIS AM. NOW THAT HE IS NOT EATING PANCAKES ,HIS INSULIN NEED HAS REDUCED. HE IS STABLE. CONT PT. HE IS BETTER WHEN I ASKED HIM TO AVOID PANCAKES AND BUISCUITS FROM HIS FOOD HERE. HE IS EAGER TO GO HOME. Review of Systems 10-point ROS is otherwise unremarkable Physical Examination - Vital Signs Temperature: 98.6 F Blood Pressure: 119/67 Pulse: 72 Respirations: 16 Pulse Ox (%): 99 - Physical Exam General: Alert, In no apparent distress HEENT: Atraumatic, PERRLA, EOMI Neck: Supple, JVD not distended Respiratory: Clear to auscultation bilaterally, Normal air movement Cardiovascular: Regular rate/rhythm, Normal S1 S2 Gastrointestinal: Normal bowel sounds, No tenderness Musculoskeletal: No tenderness Integumentary: No rashes Neurological: Normal speech, Normal tone, Normal affect Lymphatics: No axilla or inguinal lymphadenopathy - Studies Medications List Reviewed: Yes Assessment And Plan - Current Problems (Diagnosis) (1) Closed right hip fracture Current Visit: No Status: Acute Plan: CONT PT . FALL PREC. RESUME XARELTO 10 MG. HOPEFULLY WILL TOLERATE. NO CHANGES. MEDS REVIEWED. 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 Qualifiers: Encounter type: subsequent encounter (2) Diabetes type 2, controlled Onset Date: 03/05/17 Current Visit: No Status: Chronic Plan: FU ON LDL AND A1C DONE. GLUCOSE 160-200 QUYEN ADJUSE DOSES. GLUOCSE HAS GONE UP. DIET IS NOT THE BES. GLUCOSE IS HIGH FOOD CHOICES ARE POOR IN DIABETIC FOOD AT HOSPITAL EVEN. AT HOME HIS NUMBERS ARE NOT BAD. ADD 7 UNITS OF INSULIN BEFORE MEALS. HE IS ON HIGHER DOSE OF LANTUS HERE THAN AT HOME. DIABETIC DIET IN HOSPITAL IS NOT THE BEST. I RECOMMEND PALEO DIET WITH GOOD CARBS, PROTEIN AND FAT AND NOT PROCESSED FLOUR PRODUCTS LIKE YOU SEE HERE. ABOVE. REDUCE PM DOSE OF LANTUS. GLUCOSE IS STABLE. WILL CONTINUE MEDS. NO CHANGES. (3) Anemia Current Visit: Yes Status: Acute Plan: HOLD AC WILL DO LAB EVERY OTHER DAY. NO ACUTE BLEEDING HE CAN SEE HIS GI DOCTOR DIV[facility] DUENAS. ANEMIA CHARACTER IS OF CHRONIC DISEASE. LOW IRON, TIBC AND NORMAL FERRITIN. WILL FU. GIVE TWO UNITS OF PRBCS MDS IS THE REASON FOR ANEMIA. SHE HAS SEEN DR. MELENDEZ FOR IT 5 YEARS AGO. WILL FU RTNLY.
[2020-01-04] MEDS: ATORVASTATIN 80 MG TAB PO SCH (20:12)
[2020-01-05] MEDS: LEVOTHYROXINE SOD 0.05 MG TABLET PO SCH (06:34)
[2020-01-05] MEDS: INSULIN -REGULAR HUMAN 50 UNIT/0.5 ML ML SQ SCH ×4 (07:30→20:10)
[2020-01-05] MEDS: TRAMADOL HCL 50 MG TAB PO PRN ×2 (08:15→12:01)
[2020-01-05] MEDS: CRANBERRY FRUIT EXTRACT 200 MG CAP PO SCH ×2 (08:16→19:47)
[2020-01-05] MEDS: JUVEN PACKET PO SCH ×2 (08:16→19:47)
[2020-01-05] MEDS: BACLOFEN 10 MG TAB PO SCH (08:16)
[2020-01-05] MEDS: FERROUS SULFATE 325 MG TAB PO SCH (08:16)
[2020-01-05] MEDS: RIVAROXABAN 10 MG TABLET PO SCH (08:16)
[2020-01-05] MEDS: FINASTERIDE 5 MG TAB PO SCH (08:16)
[2020-01-05] MEDS: INSULIN GLARGINE 100 UNITS/ML SQ SCH ×2 (08:17→20:11)
[2020-01-05] MEDS: INSULIN LISPRO 100 UNIT/1 ML SQ SCH ×3 (08:17→17:00)
[2020-01-05] MEDS: DOCUSATE NA 100 MG CAP PO SCH ×2 (08:18→19:47)
[2020-01-05] MEDS: FE SULF/FA/VIT B COMP & C TAB PO SCH (08:18)
[2020-01-05] MEDS: CLOPIDOGREL 75 MG TABLET PO SCH (08:18)
[2020-01-05] MEDS: LIDOCAINE 4% PATCH TOP SCH (09:14)
[2020-01-05] MEDS: ATORVASTATIN 80 MG TAB PO SCH (19:47)
[2020-01-05 20:07] VITALS: TEMP 98.2
--- NOTE | 2020-01-05 20:52 | P.PN ---
Subjective Date of Service: 01/05/20 Chief Complaint: DOING GOOD. Subjective: Improving FEELS WELL HAD LOW GLUCOSE DOWN TO 66 THIS AM. HE IS STILL HERE , VERY STABLE FOR DAYS. GLUCOSE DROPPED THIS AM. NOW THAT HE IS NOT EATING PANCAKES ,HIS INSULIN NEED HAS REDUCED. HE IS STABLE. CONT PT. HE IS BETTER WHEN I ASKED HIM TO AVOID PANCAKES AND BUISCUITS FROM HIS FOOD HERE. HE IS EAGER TO GO HOME. Review of Systems 10-point ROS is otherwise unremarkable Physical Examination - Vital Signs Temperature: 98.2 F Blood Pressure: 116/66 Pulse: 71 Respirations: 16 Pulse Ox (%): 95 - Physical Exam General: Mild distress HEENT: Atraumatic, PERRLA, EOMI Neck: Supple, JVD not distended Respiratory: Clear to auscultation bilaterally, Normal air movement Cardiovascular: Regular rate/rhythm, Normal S1 S2 Gastrointestinal: Normal bowel sounds, No tenderness Musculoskeletal: No tenderness Integumentary: No rashes Neurological: Normal speech, Normal tone, Normal affect Lymphatics: No axilla or inguinal lymphadenopathy - Studies Medications List Reviewed: Yes Assessment And Plan - Current Problems (Diagnosis) (1) Closed right hip fracture Current Visit: No Status: Acute Plan: CONT PT . FALL PREC. RESUME XARELTO 10 MG. HOPEFULLY WILL TOLERATE. NO CHANGES. MEDS REVIEWED. 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 Qualifiers: Encounter type: subsequent encounter (2) Diabetes type 2, controlled Onset Date: 03/05/17 Current Visit: No Status: Chronic Plan: FU ON LDL AND A1C DONE. GLUCOSE 160-200 QUYEN ADJUSE DOSES. GLUOCSE HAS GONE UP. DIET IS NOT THE BES. GLUCOSE IS HIGH FOOD CHOICES ARE POOR IN DIABETIC FOOD AT HOSPITAL EVEN. AT HOME HIS NUMBERS ARE NOT BAD. ADD 7 UNITS OF INSULIN BEFORE MEALS. HE IS ON HIGHER DOSE OF LANTUS HERE THAN AT HOME. DIABETIC DIET IN HOSPITAL IS NOT THE BEST. I RECOMMEND PALEO DIET WITH GOOD CARBS, PROTEIN AND FAT AND NOT PROCESSED FLOUR PRODUCTS LIKE YOU SEE HERE. ABOVE. REDUCE PM DOSE OF LANTUS. GLUCOSE IS STABLE. WILL CONTINUE MEDS. NO CHANGES. (3) Anemia Current Visit: Yes Status: Acute Plan: HOLD AC WILL DO LAB EVERY OTHER DAY. NO ACUTE BLEEDING HE CAN SEE HIS GI DOCTOR DIVINE DUENAS. ANEMIA CHARACTER IS OF CHRONIC DISEASE. LOW IRON, TIBC AND NORMAL FERRITIN. WILL FU. GIVE TWO UNITS OF PRBCS MDS IS THE REASON FOR ANEMIA. SHE HAS SEEN DR. MELENDEZ FOR IT 5 YEARS AGO. WILL FU HG RTNLY.
[2020-01-06] MEDS: LEVOTHYROXINE SOD 0.05 MG TABLET PO SCH (06:33)
[2020-01-06] MEDS: LIDOCAINE 4% PATCH TOP SCH (06:59)
[2020-01-06] MEDS: INSULIN -REGULAR HUMAN 50 UNIT/0.5 ML ML SQ SCH ×2 (07:30→11:30)
[2020-01-06 07:44] VITALS: BP 116/63
[2020-01-06] MEDS: INSULIN LISPRO 100 UNIT/1 ML SQ SCH ×2 (08:00→12:16)
[2020-01-06] MEDS: TRAMADOL HCL 50 MG TAB PO PRN ×2 (08:24→12:17)
[2020-01-06] MEDS: JUVEN PACKET PO SCH (08:25)
[2020-01-06] MEDS: CRANBERRY FRUIT EXTRACT 200 MG CAP PO SCH (08:26)
[2020-01-06] MEDS: BACLOFEN 10 MG TAB PO SCH (08:26)
[2020-01-06] MEDS: DOCUSATE NA 100 MG CAP PO SCH (08:26)
[2020-01-06] MEDS: CLOPIDOGREL 75 MG TABLET PO SCH (08:26)
[2020-01-06] MEDS: RIVAROXABAN 10 MG TABLET PO SCH (08:26)
[2020-01-06] MEDS: FE SULF/FA/VIT B COMP & C TAB PO SCH (08:27)
[2020-01-06] MEDS: FINASTERIDE 5 MG TAB PO SCH (08:27)
[2020-01-06] MEDS: FERROUS SULFATE 325 MG TAB PO SCH (08:27)
[2020-01-06] MEDS: INSULIN GLARGINE 100 UNITS/ML SQ SCH (09:19)
--- NOTE | 2020-01-09 14:53 | R.DS ---
DISCHARGE SUMMARY FACILITY [facility] MR# [id number] NAME KRYSTIAN RUBIN ADDRESS [address] [place] [address]IP [id number] PHONE DATE OF 1935 AGE 84 SSN# [id number] GENDER Male DEXTERITY Right-handed MARITAL STATUS RACE Unknown race ENCOUNTER PHYSICIAN Dr. Gopal Merrill M.D. REFERRING DOCTOR KAT MEIER REFERRING FACILITY [facility] DISCHARGE DIAGNOSIS: - Orthopaedic Disorders 08 - Unilateral Hip Fracture (08.11) RIGHT HIP FRACTURE. 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 NURSING: - Shower allowing shower - Skin care per protocol PRECAUTIONS: - Anterior Hip Precaution No abduction No active extension No adduction across midline No external rotation No hip flexion >90 degrees No internal rotation - Posterior Hip Precaution No adduction across midline No external rotation No hip flexion >90 degrees No internal rotation No wheel chair propulsion - Weight Bearing Precaution WBAT right LE ACTIVITIES OOB only with supervision THERAPIES: - Dietary and Nutrition Adequate Nutrition Nutritional Education Nutritional Supplements HISTORY OF PRESENT ILLNESS: Pt. is a 84 yo Right-handed male of unknown race.On 12/11/2019 he was admitted to [facility] with diagnosis RIGHT HIP FRACTURE.His impairment category is Orthopaedic Disorders 08 - Unilate ral Hip Fracture (08.11).Pre-morbidly, Pt. was independent/mod-I in Safety Awareness, Self-Care, and Communication; and he had good Sphincter Control, Transfers Control, and Locomotion.Currently, he has deficits of Endurance, Safety Awareness, Locomotion, Balance, and Sphincter Control.Pt. is now refer red to [facility] for acute in-patient rehabilitation in order to maximize pat ient's functional independence in activities of daily living, strength, ROM, and mobility.- Rehab Goa l Patient has realistic goal of being discharged at assistance level 7-Ind to reside at Home with Fami ly/Relatives. Mr. Daily is a 84 year old male that lives independently at home with his , Karen. They have no stairs to enter their home. The patient was in good health until he tripped on the last step while out and fell breaking his right hip He underwent a right hip hemiarthroplasty and is working very well with PT. 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 The patient would most definitely benefit from acute inpatient rehab and has become severely debilitated and unable to live at his prior level of activity at home getting him stronger to be back living at home independently is our goal. It is reasonable and necessary for the patient to come to acute inpatient rehab for approximately 7-10 days in order to return to his prior level of care. He is now being transferred to [facility] Inpatient rehabilitation and is medically stable with relatively stable labs. He is now medically stable but in need of 24 hour nursing, doctor supervision and oversight while receiving active and participate in 3 hours of therapy a day/15 hours per week and receive care with intensive interdisciplinary approach. COVID-19 screening performed; spoke with patient via phone. Patient denies new onset of fever, cough, difficulty breathing, sore throat, body aches and non-allergy nasal congestion in the past 24 hours. Patient denies travel outside of [place] in the past 14 days. Patient denies any contact with someone who has a confirmed diagnosis of or is under investigation for COVID-19 in the past 14 days. Patient has been tested negative for COVID- 19.HOSPITAL COURSE: ANTERIOR HIP PRECAUTION: On 12/15/2019 the following precautions were added for the patient: Anterior Hip Precaution - No inte rnal rotation, Anterior Hip Precaution - No adduction across midline, Anterior Hip Precaution - No ac tive extension, Anterior Hip Precaution - No abduction, Anterior Hip Precaution - No hip flexion >90 degrees, and Anterior Hip Precaution - No external rotation. On 12/17/2019 the following precautions were added for the patient: Anterior Hip Precaution - No abd uction, Anterior Hip Precaution - No active extension, Anterior Hip Precaution - No adduction acros s midline, Anterior Hip Precaution - No external rotation, Anterior Hip Precaution - No hip flexion >90 degrees, and Anterior Hip Precaution - No internal rotation. The following precautions were removed for the patient: Anterior Hip Precaution - No abduction, Anter ior Hip Precaution - No active extension, Anterior Hip Precaution - No adduction across midline, Ante rior Hip Precaution - No external rotation, Anterior Hip Precaution - No hip flexion >90 degrees, Ant erior Hip Precaution - No internal rotation, Anterior Hip Precaution - No abduction, Anterior Hip Pr ecaution - No active extension, Anterior Hip Precaution - No adduction across midline, Anterior Hip Precaution - No external rotation, Anterior Hip Precaution - No hip flexion >90 degrees, and Anter ior Hip Precaution - No internal rotation. On 12/15/2019 the following precautions were added for the patient: Posterior Hip Precaution - No int ernal rotation, Posterior Hip Precaution - No adduction across midline, Posterior Hip Precaution - No hip flexion >90 degrees, Posterior Hip Precaution - No wheel chair propulsion, and Posterior Hip Pre caution - No external rotation. On 12/17/2019 the following precautions were added for the patient: Posterior Hip Precaution - No ad duction across midline, Posterior Hip Precaution - No external rotation, Posterior Hip Precaution - No hip flexion >90 degrees, Posterior Hip Precaution - No internal rotation, and Posterior Hip Prec aution - No wheel chair propulsion. The following precautions were removed for the patient: Posterior Hip Precaution - No adduction acros s midline, Posterior Hip Precaution - No external rotation, Posterior Hip Precaution - No hip flexion >90 degrees, Posterior Hip Precaution - No internal rotation, Posterior Hip Precaution - No wheel ch air propulsion, Posterior Hip Precaution - No adduction across midline, Posterior Hip Precaution - No external rotation, Posterior Hip Precaution - No hip flexion >90 degrees, Posterior Hip Precautio n - No internal rotation, and Posterior Hip Precaution - No wheel chair propulsion. On 12/15/2019 the following precautions were added for the patient: Weight Bearing Precaution - WBAT right LE. On 12/16/2019 the following precautions were added for the patient: Weight Bearing Precaution - WBAT right LE. On 12/17/2019 the following precautions were removed for the patient: Weight Bearing Precaution - WB AT right LE. On 12/18/2019 the following precautions were added for the patient: Weight Bearing Precaution - WBAT right LE. DIET - LIQUID TEXTURE: On 12/15/2019 Pt was upgraded to Regular Diet - Liquid Texture. DIET - SOLID TEXTURE: On 12/15/2019 Pt was upgraded to Regular Diet - Solid Texture. DIET TYPE: On 12/15/2019 Pt was upgraded to Regular Diet Type. POSTERIOR HIP PRECAUTION: TUBE FEED: On 12/15/2019 Pt was changed to N/A Tube Feed. WEIGHT BEARING PRECAUTION: DISCHARGE PHYSICAL EXAM - Gen Alert and awake Lying in bed No apparent distress Oriented to: person, time, and place - Skin No breakdown Normacephalic - Eyes No abnormalities - ENMT No abnormalities - Neck No abnormalities - CVS RRR - Chest No abnormalities - Resp Clear to auscultation - Abd Soft - GI + bowel sounds Deferred - No abnormalities - Ext Right hip surgical site has good hemostasis. - MSK 4+/5 weakness in right lower extremity - Neuro 4/5 strength right lower extremity. - Psych No abnormalities FUNCTIONAL STATUS: - Self-Care A. Eating 6-Shashi B. Grooming 6-Shashi C. Bathing 6-Shashi D. Dressing - Upper 6-Shashi E. Dressing - Lower 6-Shashi F. Toileting 6-Shashi - Sphincter Control G. Bladder control 6-Shashi H. Bowel control 6-Shashi - Transfers Control I. Bed/Chair/Wheelchair 6-Shashi J. Toilet 6-Shashi K. Tub/Shower 6-Shashi - Locomotion L. Walk/Wheelchair (B) 6-Shashi M. Stairs 6-Shashi - Communication N. Comprehension (B) 6-Shashi O. Expression (B) 6-Shashi - Social Cognition P. Social Interaction 6-Shashi Q. Problem Solving 6-Shashi R. Memory 6-Shashi - Endurance Good - Balance Good - Safety Awareness Good QI SCORES: - Self-Care A. Eating 03-Partial/moderate assistance B. Oral hygiene 03-Partial/moderate assistance C. Toileting hygiene 03-Partial/moderate assistance E. Shower/bathe self 03-Partial/moderate assistance F. Upper body dressing 03-Partial/moderate assistance G. Lower body dressing 03-Partial/moderate assistance H. Putting on/taking off footwear 88-Not attempted due to medical condition or safety concerns - Mobility A. Roll left and right 03-Partial/moderate assistance B. Sit to lying 03-Partial/moderate assistance C. Lying to sitting on side of bed 03-Partial/moderate assistance D. Sit to stand 03-Partial/moderate assistance E. Chair/hxb-em-qduqw transfer 03-Partial/moderate assistance F. Toilet transfer 03-Partial/moderate assistance G. Car transfer 88-Not attempted due to medical condition or safety concerns I. Walk 10 feet 88-Not attempted due to medical condition or safety concerns J. Walk 50 feet with two turns 88-Not attempted due to medical condition or safety concerns K. Walk 150 feet 88-Not attempted due to medical condition or safety concerns L. Walking 10 feet on uneven surfaces 88-Not attempted due to medical condition or safety concerns M. 1 step (curb) 88-Not attempted due to medical condition or safety concerns N. 4 steps 88-Not attempted due to medical condition or safety concerns O. 12 steps 88-Not attempted due to medical condition or safety concerns P. Picking up object 88-Not attempted due to medical condition or safety concerns R. Wheel 50 feet with two turns 88-Not attempted due to medical condition or safety concerns S. Wheel 150 feet 88-Not attempted due to medical condition or safety concerns - Bladder and Bowel Bladder continence Bowel continence - Endurance Good - Balance Good - Safety Awareness Good DISCHARGE INSTRUCTIONS: - N/A Xarelto 10 mg daily. DISCHARGE PLAN, FOLLOW UP CARE PROVISIONS: - Estimated Length of Stay (days) 14. - Consensus on plan Discharge plan has been discussed with primary caregiver. Patient/Family is in agreement with the ellen n. Primary caregiver is in agreement with the plan. - Patient/Family Goals Return home independently. - Planned Living Setting Upon Discharge Home, to live with Family/Relatives. Transitional Living. 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
== END 2020-01-06 15:00 | disposition home health service (06) | DRG 561 ==
LOC: 5TH 14:43
PROVIDERS: ADMIT Psychiatry & Neurology Neurology with Special Qualifications in Child Neurology; ATTEND Psychiatry & Neurology Neurology with Special Qualifications in Child Neurology
PROC: 30233N1 Transfusion of Nonautologous Red Blood Cells into Peripheral Vein, Percutaneous Approach (ICD-10-PCS; principal; 2020-01-04)
DX: S72.001D Fracture of unspecified part of neck of right femur, subsequent encounter for closed fracture with routine healing (principal); I25.10 Atherosclerotic heart disease of native coronary artery without angina pectoris; I10 Essential (primary) hypertension; E11.9 Type 2 diabetes mellitus without complications; D46.9 Myelodysplastic syndrome, unspecified; D63.8 Anemia in other chronic diseases classified elsewhere; R20.2 Paresthesia of skin; Z95.5 Presence of coronary angioplasty implant and graft; Z20.828 Contact with and (suspected) exposure to other viral communicable diseases
CPT/HCPCS: 36415; 80048; 81001; 82040; 82043; 82274; 82607; 82728; 82947; 83036; 83540; 83735; 84134; 84165; 84466; 85014; 85018; 85025; 85044; 86850; 86900; 86901; 87077; 87086; 87088; 87186; 97110; 97112; 97116; 97161; 97530; 97542; J1815; J7050; P9016; U0002

== ENCOUNTER → 2023-04-03 | Emergency (ER) | payer MEDICARE ==
[2023-04-03 11:16] LABS: Absolute Lymphocytes (CBC) 0.7 K/uL (0.7-4.9); Hematocrit 30.9 % (39.6-49.0); Lymphocytes % 6.6 % (15.3-44.8); MCV 83.3 fL (80-100); MPV 8.9 fL (7.6-11.3); Platelets 103 thou/uL (152-406); RBC Red Blood Cell Count 3.71 M/uL (4.33-5.43)
--- NOTE | 2023-04-03 11:27 | RAD REPORT ---
EXAM DESCRIPTION: CT - Abdomen Pelvis Wo Contrast - 04/03/2023 11:12 am CLINICAL HISTORY: Abdominal pain. Bilateral flank pain COMPARISON: No comparisons TECHNIQUE: CT imaging of the abdomen and pelvis was performed without contrast. Solid organ, bowel a nd vascular assessment is limited due to lack of IV and oral contrast. All CT scans are performed using dose optimization technique as appropriate and may include automated exposure control or mA/KV adjustment according to patient size. FINDINGS: The lung bases are emphysematous but clear.Small stones may be present in the gallbladder. The liver, spleen, pancreas, adrenal glands and kidneys are within normal limits for a limited non-co ntrast examination. There are several soft tissue masses seen in the omentum along the right upper abdomen, largest measu ring 5.5 x 2.8 cm. No bowel obstruction, free air, free fluid or abscess. The appendix is normal. Diffuse osteopenia is seen with mild wedging of multiple lower lumbar vertebra.Hardware is present in both hips. IMPRESSION: Soft tissue masses are seen along the right upper greater omentum concerning for maligna ncy or metastatic deposits. Follow-up PET-CT would be recommended to evaluate for metabolic activity. No acute abnormality seen. A limited non-contrast examination was performed as detailed.
[2023-04-03 11:34] LABS: Albumin 3.2 g/dL (3.4-5.0); Bilirubin Total 0.7 mg/dL (0.2-1.0); Potassium 4.4 mEq/L (3.5-5.1); Protein, Total 6.7 g/dL (6.4-8.2)
[2023-04-03 11:59] LABS: Specific Gravity 1.013 (1.005-1.030); Urine Bacteria None Seen /HPF (<20); Urine Bilirubin NEGATIVE (Negative); Urine Blood Negative (Negative); Urine Clarity Clear (Clear); Urine Color Yellow (Yellow); Urine Glucose NEGATIVE (Negative); Urine Mucus Slight /HPF (None Seen); Urine Protein NEGATIVE (Negative); Urine RBC <5 /HPF (None Seen); Urine Urobilinogen Normal (Normal); Urine pH 5.5 (5.0-7.0)
[2023-04-03 13:35] LABS: Blood Morphology Comment NOT SEEN (NOT SEEN); Platelet Estimate DECR; White Blood Cell Scan OK (OK)
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
[2023-04-03 16:02] VITALS: BP 137/78; TEMP 98.4; O2SAT 100
== END ==
LOC: ER 10:36
DX: M62.81 Muscle weakness (generalized) (principal); R93.89 Abnormal findings on diagnostic imaging of other specified body structures; I10 Essential (primary) hypertension; E11.9 Type 2 diabetes mellitus without complications; Z79.4 Long term (current) use of insulin; Z95.818 Presence of other cardiac implants and grafts
CPT/HCPCS: 36415; 74176; 80053; 81001; 83690; 85025; 97163

== ENCOUNTER 2023-05-21 09:24 | Inpatient (IN) | payer MEDICARE ==
[2023-05-21] MEDS ORDERED: NA CHLORIDE 0.9% 500 ML ONE (09:41)
[2023-05-21 10:07] LABS: Absolute Lymphocytes (CBC) 0.3 K/uL (0.7-4.9); Absolute Monocytes 0.4 K/uL (0.1-1.3); Absolute Neutrophil 6.8 K/uL (1.8-8.0); Basophils % 0.5 % (0-1.3); Hematocrit 27.9 % (39.6-49.0); Lymphocytes % 4.1 % (15.3-44.8); MCH 26.8 pg (27.0-35.0); MCHC 32.4 g/dL (32.0-36.0); MCV 82.7 fL (80-100); MPV 9.3 fL (7.6-11.3); Monocytes % 5.3 % (3.3-12.3); Neutrophils % 90.1 % (41.7-73.7); Nucleated Red Blood Cells % 0.1 % (0-0); Platelets 130 thou/uL (152-406); RBC Red Blood Cell Count 3.38 M/uL (4.33-5.43); Red Cell Distribution Width 15.8 % (12.1-15.2)
[2023-05-21 10:13] LABS: PT Prothrombin Time 14.7 SECONDS (9.5-12.5); Protime INR 1.35
[2023-05-21 10:21] LABS: Albumin 3.1 g/dL (3.4-5.0); Anion Gap 10.9 mEq/L (5.0-15.0); Bilirubin Total 1.4 mg/dL (0.2-1.0); Globulin 3.2 g/dL (2.3-3.5); Potassium 3.9 mEq/L (3.5-5.1); Protein, Total 6.3 g/dL (6.4-8.2)
[2023-05-21 10:35] LABS: Blood Morphology Comment NOTED (NOT SEEN); Platelet Estimate DECR; Polychromasia 1+; White Blood Cell Scan OK (OK)
[2023-05-21 10:36] LABS: Band Neutrophils 3 % (0-1); Differential Total Cells Count 100; Lymphocytes 4 % (15-42); Metamyelocytes 2 % (0-0); Monocytes 2 % (0-10); Segmented Neutrophils 89 % (40-80); Toxic Granulation 1+
--- NOTE | 2023-05-21 11:32 | RAD REPORT ---
EXAM DESCRIPTION: CT - Head C Spine Cap W Con - 05/21/2023 10:35 am CLINICAL HISTORY: dizzy, fall COMPARISON: Head C Spine Cap Wo Con dated 11/06/2022; Head C Spine Cap W Con dated 08/31/2022; Abdome n Pelvis Wo Contrast dated 04/03/2023; Chest For Pe Angio dated 01/12/2019 TECHNIQUE: Head and cervical spine CT images were obtained without IV contrast. Chest, abdomen, and pelvis CT images were obtained following intravenous administration of 100 mL Isovue-300. Multiplanar reformats were generated and reviewed. All CT scans are performed using dose optimization technique as appropriate and may include automated exposure control or mA/KV adjustment according to patient size. FINDINGS: CT HEAD: No intracranial hemorrhage, mass effect, or edema. No evidence of acute territorial infarct. Stable p atchy right more than left periventricular and deep white matter areas of hypoattenuation, nonspecifi c, but may reflect sequelae of remote ischemia. No midline shift or abnormal fluid collection. The ve ntricles are normal in caliber and configuration for age. Basal cisterns are patent. Mastoid aircells and paranasal sinuses are clear. No acute skull fracture. CT CERVICAL SPINE: No acute cervical spine fracture or subluxation. Vertebral body heights are well maintained. Multilev el degenerative changes of the facets and uncovertebral joint articulations. At least moderate multil evel degrees of bony neural foraminal narrowing. No hyperattenuating canal hematoma. Prevertebral and paraspinous soft tissues are unremarkable. CT CHEST: No pneumothorax, pulmonary contusion or pleural fluid collection. No mediastinal hematoma and the aor ta and pulmonary arteries are unremarkable. No chest will mass or abnormal axillary finding. No displ aced rib fracture or other significant bony finding. CT ABDOMEN/ PELVIS: No evidence of traumatic injury to solid abdominal viscera. Gallbladder is again contracted with wall calcifications. Numerous hypoattenuating lesions throughout the liver, largest measuring 3 cm in the inferior aspect of the right lobe. These appear progressive since the 08/2022 study, and possibly wi th some mild interval progression since the 04/03/2023 study as well. Stable splenomegaly. Stable nod ular soft tissue masses with calcifications in the omentum right of midline, largest measuring 3.8 cm , dating back to 08/31/2022 as well. No bowel injury or significant finding. No free air, free fluid or abnormal fat stranding. No urinary bladder abnormality. Progressive anterior wedge compression deformity at L3. Essentially stable posterior cortical bucklin g. Inferior endplate compression deformities at T11, T12, T5, and T7, are stable. IMPRESSION: Numerous hypoattenuating hepatic lesions, largest measuring 3 cm in the inferior aspect of the right liver lobe, concerning for metastatic disease. These may be progressive since the most r ecent exam of 04/03/2023, and are not definitely progressive since the 08/31/2022 study. Progressive anterior wedge compression deformity at L3 with stable posterior cortical buckling. Other multilevel thoracic compression deformities are stable. Stable nodular soft tissue masses with calcifications in the omentum right midline, largest measuring 3.8 cm. These could represent granulomas or stable mesenteric adenitis, although other etiologies in cluding malignancy remain possible.
[2023-05-21 12:06] LABS: Specific Gravity 1.021 (1.005-1.030); Sqamous Epithelial None Seen /HPF (None Seen); Urine Bacteria None Seen /HPF (<20); Urine Bilirubin NEGATIVE (Negative); Urine Blood Negative (Negative); Urine Clarity Turbid (Clear); Urine Color Yellow (Yellow); Urine Culture Reflex Order NOT NEEDED; Urine Glucose 3+ (Negative); Urine Ketones 1+ (Negative); Urine Microscopic Reflex YN ORDER UMIC; Urine Mucus Slight /HPF (None Seen); Urine Nitrite NEGATIVE (Negative); Urine Protein TRACE (Negative); Urine RBC <5 /HPF (None Seen); Urine Urobilinogen Normal (Normal); Urine WBC <5 /HPF (<5)
--- NOTE | 2023-05-21 12:23 | EDPHYS ---
Physician Documentation [facility] Name: Jadon Zamora Age: 88 yrs Sex: Male : 1935 Arrival Date: 05/21/2023 Time: 09:24 Bed 5 Private MD: ED Physician Ian Rios HPI: 05/20 09:39 This 88 yrs old Male presents to ER via EMS with complaints of Fall Injury. rn 09:39 Details of fall: The patient fell from an upright position, while standing. Onset: The rn symptoms/episode began/occurred just prior to arrival. Associated injuries: The patient sustained injury to the low back, injury to the chest. Severity of symptoms: At their worst the symptoms were mild, in the emergency department the symptoms are unchanged. The patient has not experienced similar symptoms in the past. Patient reports fall, got dizzy and lightheaded, reports lost his footing and fell onto his walker. Reports mild bilateral anterior chest pain as that is where he landed on his walker. Denies any head injury. Patient on Plavix. Patient reports has not taken his diabetes medication this morning. Also feels little dehydrated and thirsty. Denies any preceding chest pain or shortness of breath. No abdominal pain. 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 Patient also reports chronic peripheral vascular disease. Historical: - Allergies: 09:32 No Known Allergies; kc6 - PMHx: 09:32 Arthritis; CAD; cardiac stent x2; Diabetes - NIDDM; Hypertension; UTI; kc6 - Immunization history:: Adult Immunizations up to date. - Infectious Disease History:: Denies. - Social history:: Smoking status: unknown. - Family history:: not pertinent. - Hospitalizations: : No recent hospitalization is reported. ROS: 09:39 Constitutional: Negative for fever, chills, and weight loss, Eyes: Negative for injury, rn pain, redness, and discharge, Neck: Negative for injury, pain, and swelling, Cardiovascular: Positive for anterior chest pain Respiratory: Negative for shortness of breath, cough, wheezing, and pleuritic chest pain, Abdomen/GI: Negative for abdominal pain, nausea, vomiting, diarrhea, and constipation, Back: Positive for chronic back pain MS/Extremity: Negative for injury and deformity, Skin: Chronic peripheral lower extremity changes Neuro: Positive for generalized weakness and malaise Exam: 09:39 Constitutional: This is a well developed, well nourished patient who is awake, alert, rn and in no acute distress. Head/Face: Normocephalic, atraumatic. Eyes: Periorbital areas with no swelling, redness, or edema. ENT: Dry mucous membranes Neck: Trachea midline, no masses palpated, and no cervical lymphadenopathy. Supple, full range of motion without nuchal rigidity, or vertebral point tenderness. No Meningismus. Chest/axilla: Mild anterior inferior chest wall tenderness without crepitus or ecchymosis Cardiovascular: Regular rate, irregular rhythm. No pulse deficits. Respiratory: No increased work of breathing, no retractions or nasal flaring. Abdomen/GI: Soft, non-tender, nondistended Back: No spinal tenderness Skin: Warm, dry, signs of peripheral arterial disease, weak bilateral dorsalis pedis pulses with mottling of skin, no open wounds MS/ Extremity: Neurovascular intact. Full, normal range of motion. Equal circumference. Neuro: Awake and alert, GCS 15, oriented to person, place, time, and situation. Cranial nerves II-XII grossly intact. Motor strength 5/5 in all extremities. Sensory grossly intact. Cerebellar exam normal. Normal gait. 09:44 ECG was reviewed by the Attending Physician. rn Vital Signs: 09:31 BP 140 / 106; Pulse 82; Resp 16 S; Temp 97.8(O); Pulse Ox 95% on R/A; Weight 80.74 kg kc6 (R); Height 5 ft. 11 in. ; 10:16 BP 120 / 66; Pulse 76; Resp 15; Pulse Ox 97% ; ko1 11:18 BP 144 / 74; Pulse 77; Resp 16 S; Pulse Ox 94% on R/A; kc6 12:10 BP 131 / 63; Pulse 77; Resp 18 S; Pulse Ox 100% on R/A; kc6 12:35 BP 128 / 64; Pulse 72; Resp 18; Pulse Ox 100% ; ko1 09:31 Body Mass Index 24.83 (80.74 kg, 180.34 cm) kc6 MDM: 09:31 Patient medically screened. rn 12:19 Differential diagnosis: closed head injury, contusion, fracture, sprain, strain, rn Dehydration, progressive malignancy, renal failure, infection, UTI. Data reviewed: vital signs, nurses notes, lab test result(s), radiologic studies, CT scan, and as a result, I will admit patient. Consideration of Admission/Observation Patient was admitted/placed on observation. Escalation of care including admission/observation considered. Counseling: I had a detailed discussion with the patient and/or guardian regarding the historical points, exam findings, and any diagnostic results supporting the discharge/admit diagnosis, lab results, radiology results, the need for further work-up and treatment in the hospital. Response to treatment: There is no appreciated change of the patient's symptoms at this time, and as a result, I will admit patient. ED course: Pt still persistently weak. No acute traumatic findings on imaging. Imaging does show progressive possible malignancy throughout with new liver lesions. Spoke with daughter, was recommended PET scan a month ago and unable to schedule it since then. Unknown when last colonoscopy performed. Daughter states lives with who is also elderly. Today after fall 2 people in the house including home health nurse unable to lift patient. Daughter states has never seen him this week. Barely able to lift leg or support weight. I believe this patient is a fall risk and has decompensated with unintentional weight loss and not eating or drinking. Urine negative for UTI. Patient not septic. Does have bandemia and evaluation. Will ops to hospitalist service for further care and hydration with possibly physical therapy. 04 09:33 Order name: CBC with Diff; Complete Time: 10:37 rn 05/20 09:33 Order name: CMP; Complete Time: 10:37 rn 05/20 09:33 Order name: Protime (+inr); Complete Time: 10:37 rn 05/20 09:33 Order name: Ptt, Activated; Complete Time: 10:37 rn 05/20 09:58 Order name: Glucose, Ancillary Testing; Complete Time: 10:37 EDMS 05/20 10:10 Order name: CBC Smear Scan; Complete Time: 10:37 EDMS 05/20 10:36 Order name: Manual Differential; Complete Time: 10:37 EDMS 05/20 10:37 Order name: Urinalysis w/ reflexes; Complete Time: 12:08 rn 05/20 13:39 Order name: Lactate w/ 2H reflex if indic.; Complete Time: 15:25 EDMS 05/20 13:39 Order name: T4 Free; Complete Time: 15:25 EDMS 05/20 13:39 Order name: CBC with Automated Diff EDMS 05/20 13:39 Order name: CBC with Automated Diff; Complete Time: 05:28 EDMS 05/20 13:39 Order name: CBC with Automated Diff EDMS 05/20 13:39 Order name: CBC with Automated Diff EDMS 05/20 13:39 Order name: Comprehensive Metabolic Panel EDMS 05/20 13:39 Order name: Comprehensive Metabolic Panel; Complete Time: 05:28 EDMS 05/20 13:39 Order name: Comprehensive Metabolic Panel EDMS 05/20 13:39 Order name: Comprehensive Metabolic Panel EDMS 05/20 13:39 Order name: Lipid Profile EDMS 05/20 13:39 Order name: Lipid Profile; Complete Time: 05:28 EDMS 05/20 13:39 Order name: Magnesium EDMS 05/20 13:39 Order name: Magnesium; Complete Time: 05:28 EDMS 05/20 13:39 Order name: Protime (+INR) EDMS 05/20 13:39 Order name: Protime (+INR); Complete Time: 05:28 EDMS 05/20 13:39 Order name: PTT, Activated Partial Thromb EDMS 05/20 13:39 Order name: PTT, Activated Partial Thromb; Complete Time: 05:28 EDMS 05/20 09:33 Order name: CT Traumagram (Head C Spine CAP W Con); Complete Time: 11:33 rn 08 09:33 Order name: EKG; Complete Time: 09:33 rn 08 13:39 Order name: Physical Therapy Consult EDMS 05/20 09:31 Order name: IV Start; Complete Time: 09:34 rn 08 09:33 Order name: EKG - Nurse/Tech; Complete Time: 09:43 rn 08 09:33 Order name: Glucose Level; Complete Time: 09:43 rn 08 09:33 Order name: Cardiac monitoring; Complete Time: 09:33 rn 08 09:33 Order name: O2 Sat Monitoring; Complete Time: 09:33 rn EC:44 Rate is 82 beats/min. Rhythm is irregularly irregular. QRS [place] is Normal. QRS interval rn is prolonged at 174 msec. QT interval is normal. No Q waves. T waves are Normal. No ST changes noted. Clinical impression: Atrial Fibrillation. Interpreted by me. Reviewed by me. Administered Medications: 09:43 Drug: NS 0.9% IV 500 ml IV at bolus once Route: IV; Rate: bolus; Site: left antecubital;ko1 Disposition Summary: 05/21/23 12:23 Hospitalization Ordered Notes: Hospitalization Status: Observation rn Provider: Arlette Mayorga rn Location: Telemetry/MedSurg (observation) rn Condition: Stable rn Problem: new rn Symptoms: are unchanged rn Bed/Room Type: Standard rn Room Assignment: 202(05/21/23 14:01) bd Diagnosis - Weakness rn - Fall on same level, unspecified rn - Altered mental status, unspecified rn Forms: - Medication Reconciliation Form rn - SBAR form rn - Leadership Thank You Letter rn Signatures: Dispatcher [employer] EDSD Velvet Adhikari Shelly, BASKET HAND WEAVER-C BASKET HAND WEAVER-Csnw Ian Rios MD MD rn Campbell, Kaitlyn RN RN kc6 Sharita Shearer RN RN ko1 Corrections: (The following items were deleted from the chart) 10:37 10:37 Urinalysis+U.LAB.BRZ ordered. EDSD EDSD 14:01 12:23 rn bd
--- NOTE | 2023-05-21 12:23 | ER ---
Nurse's Notes [facility] Name: Jadon Zamora Age: 88 yrs Sex: Male : 1935 Arrival Date: 05/21/2023 Time: 09:24 Bed 5 Private MD: Diagnosis: Weakness;Fall on same level, unspecified;Altered mental status, unspecified Presentation: 05/20 09:31 Chief complaint: Patient states: he fell with his walker while getting to the shower. kc6 denies LOC, takes Plavix daily. BGl en route 339. Coronavirus screen: At this time, the client does not indicate any symptoms associated with coronavirus-19. Ebola Screen: No symptoms or risks identified at this time. Initial Sepsis Screen: Does the patient meet any 2 criteria? No. Patient's initial sepsis screen is negative. Does the patient have a suspected source of infection? No. Patient's initial sepsis screen is negative. Risk Assessment: Do you want to hurt yourself or someone else? Patient reports no desire to harm self or others. Onset of symptoms was May 21, 2023. 09:31 Method Of Arrival: EMS: [facility] 09:31 Acuity: RISHABH 3 6 Triage Assessment: 09:31 General: Appears in no apparent distress. uncomfortable, well groomed, well developed, kc6 Behavior is calm, cooperative, appropriate for age. Pain: Complains of pain in buttocks and diaphragm. EENT: No signs and/or symptoms were reported regarding the EENT system. Neuro: Level of Consciousness is awake, alert, obeys commands, Oriented to person, place, time, situation, Appropriate for age Reports dizziness, weakness. Cardiovascular: Denies chest pain, Capillary refill is > 3 seconds in bilateral toes skin is purple to the CAM feet. Pulses are 2+ in right dorsalis pedis artery and left dorsalis pedis artery. Respiratory: Airway is patent Trachea midline Respiratory effort is even, unlabored, Respiratory pattern is regular, symmetrical. GI: No signs and/or symptoms were reported involving the gastrointestinal system. : No signs and/or symptoms were reported regarding the genitourinary system. Derm: No signs and/or symptoms reported regarding the dermatologic system. Skin is intact, is healthy with good turgor, Skin is normal. Musculoskeletal: No signs and/or symptoms reported regarding the musculoskeletal system. Circulation, motion, and sensation intact. Capillary refill < 3 seconds, Range of motion: intact in all extremities. Historical: - Allergies: 09:32 No Known Allergies; kc6 - PMHx: 09:32 Arthritis; CAD; cardiac stent x2; Diabetes - NIDDM; Hypertension; UTI; kc6 - Immunization history:: Adult Immunizations up to date. - Infectious Disease History:: Denies. - Social history:: Smoking status: unknown. - Family history:: not pertinent. - Hospitalizations: : No recent hospitalization is reported. Screenin:36 [facility] ED Fall Risk Assessment (Adult) History of falling in the last 3 months, kc6 including since admission Yes- fall prone (multiple falls) (3 pts) Confusion or Disorientation No (0 pts) Intoxicated or Sedated No (0 pts) Impaired Gait Yes (1 pt) Mobility Assist Device Used Yes (1 pt) Altered Elimination No (0 pt) Score/Fall Risk Level 3 or more points = High Risk. Abuse screen: Denies threats or abuse. Denies injuries from another. Nutritional screening: No deficits noted. Tuberculosis screening: No symptoms or risk factors identified. Assessment: 09:37 Reassessment: please see triage. kc6 10:22 Reassessment: Patient appears in no apparent distress at this time. No changes from [facility] previously documented assessment. Patient and/or family updated on plan of care and expected duration. Pain level reassessed. Patient is alert, oriented x 3, equal unlabored respirations, skin warm/dry/pink. 11:18 Reassessment: Patient appears in no apparent distress at this time. No changes from kc6 previously documented assessment. Patient and/or family updated on plan of care and expected duration. Pain level reassessed. Patient is alert, oriented x 3, equal unlabored respirations, skin warm/dry/pink. 12:10 Reassessment: Patient appears in no apparent distress at this time. No changes from [facility] previously documented assessment. Patient and/or family updated on plan of care and expected duration. Pain level reassessed. Patient is alert, oriented x 3, equal unlabored respirations, skin warm/dry/pink. Vital Signs: 09:31 BP 140 / 106; Pulse 82; Resp 16 S; Temp 97.8(O); Pulse Ox 95% on R/A; Weight 80.74 kg kc6 (R); Height 5 ft. 11 in. ; 10:16 BP 120 / 66; Pulse 76; Resp 15; Pulse Ox 97% ; ko1 11:18 BP 144 / 74; Pulse 77; Resp 16 S; Pulse Ox 94% on R/A; kc6 12:10 BP 131 / 63; Pulse 77; Resp 18 S; Pulse Ox 100% on R/A; kc6 12:35 BP 128 / 64; Pulse 72; Resp 18; Pulse Ox 100% ; ko1 09:31 Body Mass Index 24.83 (80.74 kg, 180.34 cm) kc6 ED Course: 09:30 Patient arrived in ED. rn 09:30 Ian Rios MD is Attending Physician. rn 09:31 Meenu Torres RN is Primary Nurse. kc6 09:31 Arm band placed on. kc6 09:32 Triage completed. kc6 09:37 Patient has correct armband on for positive identification. Placed in gown. Bed in low kc6 position. Call light in reach. Side rails up X2. Adult w/ patient. Client placed on continuous cardiac and pulse oximetry monitoring. NIBP monitoring applied. patient monitor on. Warm blanket given. 09:37 Maintain EMS IV. Dressing intact. Good blood return noted. Site clean \T\ dry. Gauge \T\ shila 6 site: 20GLAC. 09:43 Protime (+inr) Sent. ko1 09:43 Ptt, Activated Sent. ko1 09:43 CMP Sent. ko1 09:43 CBC with Diff Sent. ko1 09:43 Initial lab(s) drawn, by ia, sent to lab. ko1 10:37 CT Traumagram (Head C Spine CAP W Con) In Process Unspecified. EDMS 11:01 Straight cath inserted, using sterile technique, 14 Fr. Specimen obtained. Returned kc6 clear yellow urine. Patient tolerated well. 11:33 Cleaned of incontinence. kc6 12:22 Arlette Mayorga MD is Hospitalizing Provider. rn Administered Medications: 09:43 Drug: NS 0.9% IV 500 ml IV at bolus once Route: IV; Rate: bolus; Site: left antecubital;ko1 Outcome: 12:23 Decision to Hospitalize by Provider. rn 15:17 Patient left the ED. kc6 Signatures: Dispatcher [employer] EDMS Rios, Ian, MD MD rn Torres, Meenu, RN RN kc6 Sharita Shearer RN RN ko1 Corrections: (The following items were deleted from the chart) 09:33 09:31 BP 140 / 106; Pulse 82bpm; Resp 16bpm; Spontaneous; Pulse Ox 95% RA; Temp 97.8F kc6 Oral; kc6
--- NOTE | 2023-05-21 14:58 | P.HP ---
Certification for Inpatient Patient admitted to: Inpatient With expected LOS: >2 Midnights Patient will require the following post-hospital care: Residential Practitioner: I am a practitioner with admitting privileges, knowledge of patient current condition, hospital course, and medical plan of care. 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 -: cardiac stent - 4 stents -: heart valve-2019 Dec. Psychosocial/ Personal History: Lives at home with his 90yr old , has walker, motorized scooter, w/c. Has a new energy advisor for 4 hours daily. Pt has been having difficulty with ambulation for about three weeks. Today he could not support his own body weight and fell to his knees. - Family History Mother -: Heart disease, Other (see notes) Notes: CHF Father -: Heart disease - Social History Smoking Status: Former smoker Alcohol use: No CD- Drugs: No Caffeine use: Yes Place of Residence: Home <Jessica Zaldivar - Last Filed: 05/21/23 16:34> Date of Service: 05/21/23 <Arlette Mayorga - Last Filed: 05/21/23 21:58> Allergies No Known Allergies Allergy (Verified 05/21/23 16:22) Review of Systems 10-point ROS is otherwise unremarkable General: Weakness, Malaise Gastrointestinal: Other (early saeity, wt loss of about 40# over the past year, 20# of that over the past 2 months) Musculoskeletal: As per HPI Neurological: As per HPI <Jessica Zaldivar - Last Filed: 05/21/23 16:34> Physical Examination - Physical Exam General: Other (sedate, answers questions appropriately but with multiple prodding questions) HEENT: Normocephalic Neck: JVD not distended Respiratory: Normal air movement Cardiovascular: No edema, Regular rate/rhythm Capillary refill: <2 Seconds Gastrointestinal: Soft and benign Musculoskeletal: No clubbing, Other (significant weakness, Coastal staff relief comes for OT/PT twice weekly) Integumentary: Other (multiple areas of ecchymosis at joints, forearms) Neurological: Abnormal strength, Abnormal tone Lymphatics: No axilla or inguinal lymphadenopathy External genitalia: Deferred Rectal: Deferred - Studies Laboratory Data (last 24 hrs) 05/21/23 05/21/23 05/21/23 09:46 09:46 09:46 WBC 7.50 Hgb 9.0 L Hct 27.9 L Plt Count 130 L PT 14.7 H INR 1.35 APTT 32.0 Sodium 131 L Potassium 3.9 BUN 19 H Creatinine 1.33 H Glucose 355 H Total Bilirubin 1.4 H AST 34 ALT 26 Alkaline Phosphatase 132 H <Jessica Zaldivar - Last Filed: 05/21/23 16:34> - Studies Laboratory Data (last 24 hrs) 05/21/23 05/21/23 05/21/23 09:46 09:46 09:46 WBC 7.50 Hgb 9.0 L Hct 27.9 L Plt Count 130 L PT 14.7 H INR 1.35 APTT 32.0 Sodium 131 L Potassium 3.9 BUN 19 H Creatinine 1.33 H Glucose 355 H Total Bilirubin 1.4 H AST 34 ALT 26 Alkaline Phosphatase 132 H <Arlette Mayorga - Last Filed: 05/21/23 21:58> Assessment and Plan - Plan Generalized Weakness/failure to thrive: CT head, chest, abd/pelvis shows hepatic lesions suspicious for malignancy/mets Omental soft tissue masses/opacifications I&O Labs for malnutrition dietary consult daily weight full liquids and advance diet as tolerated Back pain: anterior compression fx of L3 many levels of subacute fx of thoracic spine [place] 7.5mg po q 6h prn pain PT consult Hypertension: Continue home meds monitor and document Hyperlipidemia: continue home meds lipids in am IDDM: FSBS ac and hs, covered with long and short acting Dehydration: gentle hydration and monitoring Strict I&O - Advance Directives Does patient have a Living Will: No Does patient have a Durable POA for Healthcare: Yes <Jessica Zaldivar - Last Filed: 05/21/23 16:34> Physician Review Additional Text: Pt is an 88 yo male with past medical history of CAD, Arthritis, DM and Htn who presents with generalized weakness. Pt had near syncope at home and he dropped to the floor but could not get up by himself. Pt attributes the incident to feeling weak. Pt lost his footing an fell on his walker. HE had bilateral chest wall pain due to the fall. On admission, lab studies show wbc 7.5, hgb 9, Cr 1.33, glucose 355, Na 131 and K 3.9. At bedside, pt was sleepy but arousable. Pt also complained of [address] abd shows hepatic lesions suspicious for malignancy/met and Omental soft tissue masses opacifications. Imaging studies show anterior compression fx of L3 many levels of subacute fx of thoracic spine. Will continue prn pain med and IVF. Continue home med for other chronic medical problems. Will optimize insulin regimen. <Arlette Mayorga - Last Filed: 05/21/23 21:58>
[2023-05-21] MEDS ORDERED: GLUCAGON 1 MG/VIAL IM PRN ×2 (15:07→22:00)
[2023-05-21] MEDS ORDERED: D10W 250 ML BAG IV PRN (15:07)
[2023-05-21] MEDS ORDERED: DOCUSATE NA 100 MG CAP PO PRN (15:28)
[2023-05-21] MEDS: INSULIN REGULAR (HUMAN) 100 UNIT/ML SQ SCH (16:30)
[2023-05-21] MEDS: INSULIN LISPRO 100 UNIT/ML SQ SCH (16:30)
[2023-05-21] MEDS: ATORVASTATIN 40 MG TAB PO SCH (20:13)
[2023-05-21] MEDS: HYDROCODONE/APAP 7.5/325 MG TAB PO PRN (20:13)
[2023-05-21] MEDS: AMIODARONE HCL 200 MG TAB PO SCH (20:13)
[2023-05-21] MEDS: FINASTERIDE 5 MG TAB PO SCH (20:13)
[2023-05-21] MEDS: MEMANTINE HCL 10 MG TABLET PO SCH (20:13)
[2023-05-21] MEDS: JUVEN PACKET PO SCH (20:13)
[2023-05-21] MEDS: DONEPEZIL HCL 5 MG TAB PO SCH (20:13)
[2023-05-21] MEDS ORDERED: DONEPEZIL HCL 5 MG TAB PO SCH (21:00)
[2023-05-21] MEDS ORDERED: D50W 25 GM/50 ML SYRINGE IV PRN (22:00)
[2023-05-22 03:39] LABS: Absolute Lymphocytes (CBC) 0.6 K/uL (0.7-4.9); Absolute Monocytes 0.5 K/uL (0.1-1.3); Absolute Neutrophil 3.4 K/uL (1.8-8.0); Basophils % 0.9 % (0-1.3); Eosinophils % 0.7 % (0-4.4); Hematocrit 23.1 % (39.6-49.0); Hemoglobin 7.7 g/dL (13.6-17.9); Lymphocytes % 12.8 % (15.3-44.8); MCH 26.9 pg (27.0-35.0); MCHC 33.1 g/dL (32.0-36.0); MCV 81.3 fL (80-100); MPV 8.8 fL (7.6-11.3); Platelets 107 thou/uL (152-406); RBC Red Blood Cell Count 2.84 M/uL (4.33-5.43); Red Cell Distribution Width 15.7 % (12.1-15.2)
[2023-05-22 03:40] LABS: Neutrophils % 75.6 % (41.7-73.7)
[2023-05-22 03:42] LABS: PT Prothrombin Time 14.8 SECONDS (9.5-12.5); PTT, Activated Partial Thromb 31.6 SECONDS (24.3-36.9); Protime INR 1.36
[2023-05-22 04:06] LABS: Albumin 2.6 g/dL (3.4-5.0); Anion Gap 8.3 mEq/L (5.0-15.0); Bilirubin Total 0.8 mg/dL (0.2-1.0); Globulin 2.6 g/dL (2.3-3.5); Magnesium 1.7 mg/dL (1.6-2.4); Potassium 3.3 mEq/L (3.5-5.1); Protein, Total 5.2 g/dL (6.4-8.2)
[2023-05-22] MEDS: LEVOTHYROXINE SOD 0.075 MG TAB PO SCH (05:27)
[2023-05-22] MEDS: MAGNESIUM SULFATE 1 gm IVPB 1 GM/100 ML BAG IV ONE (05:27)
[2023-05-22] MEDS: POTASSIUM CL SA 10 MEQ TAB PO ONE ×2 (05:27→12:46)
--- NOTE | 2023-05-22 08:46 | P.PN ---
Subjective Date of Service: 05/22/23 Chief Complaint: generalized weakness, fall Subjective: Tolerating diet, Improving ('I feel a lot better than yesterday. I musta been almost when I got here.") <Jessica Zaldivar - Last Filed: 05/22/23 08:37> Date of Service: 05/22/23 <Arlette Mayorga Anabel - Last Filed: 05/22/23 12:32> Review of Systems 10-point ROS is otherwise unremarkable General: Weakness, Malaise Respiratory: SOB with Excertion Cardiovascular: Edema, As per HPI Gastrointestinal: Other (denies pain, melena, hematochezia) <Jessica Zaldivar - Last Filed: 05/22/23 08:37> Physical Examination - Vital Signs Temperature: 97.8 F Blood Pressure: 94/46 Pulse: 54 Respirations: 18 Pulse Ox (%): 98 - Physical Exam General: Alert, In no apparent distress, Oriented x3 HEENT: Atraumatic, Normocephalic Neck: Supple, 2+ carotid pulse no bruit Respiratory: Normal air movement Cardiovascular: No edema, Regular rate/rhythm Capillary refill: <2 Seconds Gastrointestinal: Soft and benign Musculoskeletal: No swelling, No contractures Integumentary: No rashes Neurological: Normal speech Lymphatics: No axilla or inguinal lymphadenopathy External genitalia: Deferred Rectal: Deferred - Studies Laboratory Data (last 24 hrs) 05/21/23 05/21/23 05/21/23 09:46 09:46 09:46 WBC 7.50 Hgb 9.0 L Hct 27.9 L Plt Count 130 L PT 14.7 H INR 1.35 APTT 32.0 Sodium 131 L Potassium 3.9 BUN 19 H Creatinine 1.33 H Glucose 355 H Total Bilirubin 1.4 H AST 34 ALT 26 Alkaline Phosphatase 132 H <Jessica Zaldivar - Last Filed: 05/22/23 08:37> Assessment And Plan - Plan Generalized Weakness/failure to thrive: CT head, chest, abd/pelvis shows hepatic lesions suspicious for malignancy/mets Omental soft tissue masses/opacifications I&O Labs for malnutrition dietary consult daily weight full liquids and advance diet as tolerated Back pain: anterior compression fx of L3 many levels of subacute fx of thoracic spine [place] 7.5mg po q 6h prn pain PT consult Hypertension: Continue home meds monitor and document Hyperlipidemia: continue home meds lipids in am IDDM: FSBS ac and hs, covered with long and short acting Dehydration: gentle hydration and monitoring Strict I&O <Jessica Zaldivar - Last Filed: 05/22/23 08:37> - Plan Pt seen and examined. I agree with the note by the SCRATCH FINISHER. Pt's CT abd shows hepatic lesions suspicious for malignancy/met and Omental soft tissue masses op acifications. Imaging studies show anterior compression fx of L3 many levels of subacute fx of thoracic spine. Will order CT guided biopsy of the liver. continue prn pain med and IVF. Will replete potassium. Hgb is 7.7. Will give 1 unit of blood and monitor H/H. Continue home med for other chronic medical problems. <Arlette Mayorga - Last Filed: 05/22/23 12:32>
[2023-05-22] MEDS: ASPIRIN EC 81 MG TAB PO SCH (08:52)
[2023-05-22] MEDS: CLOPIDOGREL 75 MG TABLET PO SCH (08:52)
[2023-05-22] MEDS: INSULIN LISPRO 100 UNIT/ML SQ SCH (08:52)
[2023-05-22] MEDS ORDERED: INSULIN GLARGINE 100 UNIT/ML SQ SCH (09:00)
[2023-05-22] MEDS: NA CHLORIDE 0.9% 250 ML ONE (10:47)
[2023-05-22 14:01] VITALS: BMI 24.7
[2023-05-22 15:46] LABS: Hematocrit 27.4 % (39.6-49.0); Hemoglobin 8.9 g/dL (13.6-17.9)
--- NOTE | 2023-05-22 16:19 | EKG ---
Test Date: 2023-05-21 Test Time: 09:40:06 Publicity Writer: JOSE MEASUREMENT RESULTS: Intervals: Rate: 82 HI: QRSD: 174 QT: 462 QTc: 539 [place]: P: HI: QRS: 29 T: 115 INTERPRETIVE STATEMENTS: Atrial fibrillation Left bundle branch block Abnormal ECG Compared to ECG 11/06/2022 11:51:38 Sinus rhythm no longer present Sinus arrhythmia no longer present First degree AV block no longer present Electronically Signed On 05-22-23 16:15:44 CDT by Aashish Gutierres
[2023-05-22] MEDS: GLUCERNA SHAKE 237 ML CAN PO SCH (21:00)
[2023-05-23 07:08] LABS: Absolute Lymphocytes (CBC) 0.7 K/uL (0.7-4.9); Absolute Monocytes 0.4 K/uL (0.1-1.3); Absolute Neutrophil 3.1 K/uL (1.8-8.0); Basophils % 0.7 % (0-1.3); Hemoglobin 9.2 g/dL (13.6-17.9); Lymphocytes % 16.6 % (15.3-44.8); MCH 26.7 pg (27.0-35.0); MCHC 32.8 g/dL (32.0-36.0); MCV 81.5 fL (80-100); MPV 9.3 fL (7.6-11.3); Monocytes % 9.6 % (3.3-12.3); Neutrophils % 72.1 % (41.7-73.7); Platelets 108 thou/uL (152-406); RBC Red Blood Cell Count 3.44 M/uL (4.33-5.43); Red Cell Distribution Width 15.7 % (12.1-15.2)
[2023-05-23 07:20] LABS: Albumin 2.7 g/dL (3.4-5.0); Albumin/Globulin Ratio 0.9 (1.1-1.8); Anion Gap 7.5 mEq/L (5.0-15.0); Bilirubin Total 0.9 mg/dL (0.2-1.0); Globulin 2.9 g/dL (2.3-3.5); Magnesium 1.8 mg/dL (1.6-2.4); Potassium 4.5 mEq/L (3.5-5.1); Protein, Total 5.6 g/dL (6.4-8.2)
[2023-05-23] MEDS: TRESIBA SQ SCH (08:47)
[2023-05-23] MEDS: INSULIN GLARGINE 100 UNIT/ML SQ SCH (08:47)
[2023-05-23] MEDS ORDERED: TRESIBA SQ SCH (09:00)
--- NOTE | 2023-05-23 09:04 | P.PN ---
Subjective Date of Service: 05/23/23 Chief Complaint: generalized weakness, fall Subjective: No new changes (felt "good" after the blood transfusion. Still very weak lower extremities, working with PT, c/o severe back pain this am. Morphine x 1 ordered) <ZaldivarJessica Davonte - Last Filed: 05/23/23 08:42> Date of Service: 05/23/23 <Arlette Mayorga C - Last Filed: 05/23/23 14:17> Review of Systems 10-point ROS is otherwise unremarkable General: Weakness, As per HPI Musculoskeletal: Back Pain, As per HPI <ZaldivarJessicaleslie Arauz - Last Filed: 05/23/23 08:42> Physical Examination - Vital Signs Temperature: 97.4 F Blood Pressure: 136/62 Pulse: 59 Respirations: 18 Pulse Ox (%): 99 - Physical Exam General: Alert, In no apparent distress, Oriented x3 HEENT: Atraumatic, Normocephalic Neck: 2+ carotid pulse no bruit Respiratory: Normal air movement Cardiovascular: Regular rate/rhythm Capillary refill: <2 Seconds Gastrointestinal: Soft and benign Musculoskeletal: No swelling, No contractures, Other (significant back pain) Integumentary: No rashes Neurological: Normal speech, Normal affect, Abnormal strength Lymphatics: No axilla or inguinal lymphadenopathy External genitalia: Deferred Rectal: Deferred <ZaldivarJessica Davonte - Last Filed: 05/23/23 08:42> Assessment And Plan - Plan Generalized Weakness/failure to thrive: CT head, chest, abd/pelvis shows hepatic lesions suspicious for malignancy/mets Omental soft tissue masses/opacifications I&O Labs for malnutrition dietary consult daily weight full liquids and advance diet as tolerated Back pain: anterior compression fx of L3 many levels of subacute fx of thoracic spine [place] 7.5mg po q 6h prn pain, gave Morphine x 1 this am for back pain PT consult SNF eval TLSO brace Hypertension: Continue home meds monitor and document Hyperlipidemia: continue home meds lipids in am IDDM: FSBS ac and hs, covered with long and short acting Dehydration: gentle hydration and monitoring Strict I&O <ZenJessicaleslie Arauz - Last Filed: 05/23/23 08:42> - Plan Pt seen and examined. I agree with the note by the [employer]CE. Pt need to be off aspirin and plavix for at least 7 days before we can do the liver biopsy. HE is very weak to go home. His daughter wants SNF placement. Consulted PT. <Arlette Mayorga - Last Filed: 05/23/23 14:17>
[2023-05-24 03:51] LABS: Albumin 2.6 g/dL (3.4-5.0); Albumin/Globulin Ratio 0.9 (1.1-1.8); Bilirubin Total 0.7 mg/dL (0.2-1.0); Protein, Total 5.6 g/dL (6.4-8.2)
[2023-05-24] MEDS: TRESIBA SQ SCH (09:00)
[2023-05-24 10:11] LABS: Absolute Lymphocytes (CBC) 0.6 K/uL (0.7-4.9); Absolute Monocytes 0.4 K/uL (0.1-1.3); Absolute Neutrophil 3.7 K/uL (1.8-8.0); Basophils % 0.4 % (0-1.3); Eosinophils % 0.5 % (0-4.4); Hematocrit 29.6 % (39.6-49.0); Hemoglobin 9.8 g/dL (13.6-17.9); Lymphocytes % 12.5 % (15.3-44.8); MCH 26.9 pg (27.0-35.0); MCV 81.5 fL (80-100); Monocytes % 8.3 % (3.3-12.3); Neutrophils % 78.3 % (41.7-73.7); Nucleated Red Blood Cells % 0.2 % (0-0); Platelets 131 thou/uL (152-406); RBC Red Blood Cell Count 3.63 M/uL (4.33-5.43); Red Cell Distribution Width 15.8 % (12.1-15.2)
[2023-05-24 10:42] LABS: Band Neutrophils 3 % (0-1); Blood Morphology Comment NOT SEEN (NOT SEEN); Differential Total Cells Count 100; Eosinophils 1 % (0-3); Lymphocytes 12 % (15-42); Metamyelocytes 2 % (0-0); Monocytes 4 % (0-10); Platelet Estimate DECR; Segmented Neutrophils 76 % (40-80); White Blood Cell Scan OK (OK)
[2023-05-24] MEDS: INSULIN GLARGINE 100 UNIT/ML SQ SCH (12:26)
--- NOTE | 2023-05-24 15:25 | P.PN ---
Subjective Date of Service: 05/24/23 Chief Complaint: generalized weakness, fall Subjective: No new changes (pt states he is feeling better post blood transfusion, is working with PT, will get brace on today) <Jessica Zaldivar - Last Filed: 05/24/23 15:23> Date of Service: 05/25/23 <Arlette Mayorga - Last Filed: 05/25/23 22:01> Review of Systems 10-point ROS is otherwise unremarkable General: Weakness, Malaise, As per HPI Musculoskeletal: As per HPI Neurological: As per HPI <Jessica Zaldivar - Last Filed: 05/24/23 15:23> Physical Examination - Vital Signs Temperature: 97.6 F Blood Pressure: 121/62 Pulse: 58 Respirations: 16 Pulse Ox (%): 100 - Physical Exam General: Alert, In no apparent distress, Oriented x3 HEENT: Normocephalic Neck: JVD not distended Respiratory: Normal air movement Cardiovascular: Normal pulses, Regular rate/rhythm Capillary refill: <2 Seconds Gastrointestinal: Soft and benign Musculoskeletal: Other (working with PT, + L3 fx) Integumentary: No rashes Neurological: Normal speech, Other (working on strengthening exercises) Lymphatics: No axilla or inguinal lymphadenopathy External genitalia: Deferred Rectal: Deferred <Jessica Zaldivar - Last Filed: 05/24/23 15:23> Assessment And Plan - Plan Generalized Weakness/failure to thrive: CT head, chest, abd/pelvis shows hepatic lesions suspicious for malignancy/mets Omental soft tissue masses/opacifications I&O Labs for malnutrition dietary consult daily weight full liquids and advance diet as tolerated Back pain: anterior compression fx of L3 many levels of subacute fx of thoracic spine [place] 7.5mg po q 6h prn pain, gave Morphine x 1 this am for back pain PT consult SNF eval TLSO brace Hypertension: Continue home meds monitor and document Hyperlipidemia: continue home meds lipids in am IDDM: FSBS ac and hs, covered with long and short acting Dehydration: gentle hydration and monitoring Strict I&O <Jessica Zaldivar - Last Filed: 05/24/23 15:23> - Plan Pt seen and examined. I agree with the note by the PROJECT ACCOUNT MANAGER. Pt will benefit from SNF placement. Holding ASA and plavix for the liver biopsy. <Arlette Mayorga - Last Filed: 05/25/23 22:01>
[2023-05-25 07:04] LABS: Absolute Lymphocytes (CBC) 1.2 K/uL (0.7-4.9); Absolute Monocytes 0.6 K/uL (0.1-1.3); Absolute Neutrophil 4.8 K/uL (1.8-8.0); Basophils % 0.3 % (0-1.3); Eosinophils % 0.5 % (0-4.4); Hematocrit 31.2 % (39.6-49.0); Hemoglobin 10.4 g/dL (13.6-17.9); Lymphocytes % 18.5 % (15.3-44.8); MCH 27.1 pg (27.0-35.0); MCHC 33.4 g/dL (32.0-36.0); MCV 81.2 fL (80-100); MPV 8.9 fL (7.6-11.3); Neutrophils % 71.7 % (41.7-73.7); Platelets 146 thou/uL (152-406); RBC Red Blood Cell Count 3.85 M/uL (4.33-5.43); Red Cell Distribution Width 15.6 % (12.1-15.2)
[2023-05-25 07:17] LABS: Albumin 2.9 g/dL (3.4-5.0); Albumin/Globulin Ratio 0.9 (1.1-1.8); Anion Gap 6.6 mEq/L (5.0-15.0); Bilirubin Total 0.9 mg/dL (0.2-1.0); Globulin 3.4 g/dL (2.3-3.5); Potassium 4.6 mEq/L (3.5-5.1); Protein, Total 6.3 g/dL (6.4-8.2)
[2023-05-25] MEDS: INSULIN GLARGINE 100 UNIT/ML SQ SCH (09:47)
--- NOTE | 2023-05-25 10:26 | P.PN ---
Subjective Date of Service: 05/25/23 Chief Complaint: generalized weakness, fall Subjective: No new changes, Improving, Working w/ PT <Sue Zaldivarleslie Arauz - Last Filed: 05/25/23 10:22> Date of Service: 05/25/23 <Arlette Mayorga - Last Filed: 05/25/23 21:58> Review of Systems 10-point ROS is otherwise unremarkable Musculoskeletal: As per HPI <Jessica Zaldivar - Last Filed: 05/25/23 10:22> Physical Examination - Vital Signs Temperature: 97.4 F Blood Pressure: 125/56 Pulse: 53 Respirations: 18 Pulse Ox (%): 98 - Physical Exam General: Alert, Oriented x3 HEENT: Atraumatic, Normocephalic Neck: JVD not distended Respiratory: Normal air movement Cardiovascular: Regular rate/rhythm Capillary refill: <2 Seconds Gastrointestinal: Soft and benign Musculoskeletal: Other (significant back pain, new L3 compression fx, using TLSO with PT) Integumentary: No rashes Neurological: Normal speech, Abnormal strength Lymphatics: No axilla or inguinal lymphadenopathy External genitalia: Deferred Rectal: Deferred <Jessica Zaldivar - Last Filed: 05/25/23 10:22> Assessment And Plan - Plan Generalized Weakness/failure to thrive: CT head, chest, abd/pelvis shows hepatic lesions suspicious for malignancy/mets Omental soft tissue masses/opacifications I&O Labs for malnutrition dietary consult daily weight diet of choice Back pain: anterior compression fx of L3 many levels of subacute fx of thoracic spine PT consult SNF eval TLSO brace pain medications prn Hypertension: Continue home meds monitor and document Hyperlipidemia: continue home meds lipids in am IDDM: FSBS ac and hs, covered with long and short acting, maximize glucose control Dehydration: gentle hydration and monitoring Strict I&O Working with Insurance to sd to [facility] <Jessica Zaldivar - Last Filed: 05/25/23 10:22> - Plan Pt seen and examined. I agree with the note by the BOAT OUTBOARD ENGINE MECHANIC. Pt is waiting for placement. We are holding aspirin and plavix. Will use TLSO when ambulation. <Arlette Mayorga - Last Filed: 05/25/23 21:58>
[2023-05-26 03:06] LABS: Absolute Lymphocytes (CBC) 1.1 K/uL (0.7-4.9); Absolute Monocytes 0.7 K/uL (0.1-1.3); Basophils % 0.4 % (0-1.3); Eosinophils % 0.7 % (0-4.4); Hematocrit 26.9 % (39.6-49.0); Hemoglobin 9.2 g/dL (13.6-17.9); Lymphocytes % 16.6 % (15.3-44.8); MCH 27.4 pg (27.0-35.0); MCHC 34.3 g/dL (32.0-36.0); MCV 79.9 fL (80-100); MPV 9.1 fL (7.6-11.3); Monocytes % 9.9 % (3.3-12.3); Neutrophils % 72.4 % (41.7-73.7); Nucleated Red Blood Cells % 0.1 % (0-0); Platelets 117 thou/uL (152-406); RBC Red Blood Cell Count 3.36 M/uL (4.33-5.43); Red Cell Distribution Width 15.9 % (12.1-15.2)
[2023-05-26 03:35] LABS: Albumin 2.6 g/dL (3.4-5.0); Albumin/Globulin Ratio 0.9 (1.1-1.8); Anion Gap 7.4 mEq/L (5.0-15.0); Bilirubin Total 0.7 mg/dL (0.2-1.0); Potassium 4.4 mEq/L (3.5-5.1); Protein, Total 5.6 g/dL (6.4-8.2)
[2023-05-26] MEDS ORDERED: D50W 25 GM/50 ML SYRINGE IV PRN ×2 (07:57→21:31)
[2023-05-26] MEDS ORDERED: GLUCAGON 1 MG/VIAL IM PRN ×2 (07:57→21:31)
[2023-05-26] MEDS: INSULIN LISPRO 100 UNIT/ML SQ SCH (08:58)
[2023-05-26] MEDS: INSULIN GLARGINE 100 UNIT/ML SQ SCH (08:58)
--- NOTE | 2023-05-26 11:57 | P.PN ---
Subjective Date of Service: 05/26/23 Chief Complaint: generalized weakness, fall Pt is resting comfortably in bed. He denies any chest pain or SOB> Pt i working with PT. No other complaints. Review of Systems General: Unremarkable Eyes: Unremarkable ENT: Unremarkable Respiratory: Unremarkable Cardiovascular: Unremarkable Gastrointestinal: Unremarkable Genitourinary: Unremarkable Musculoskeletal: Unremarkable Integumentary: Unremarkable Neurological: Unremarkable Lymphatics: Unremarkable Physical Examination - Vital Signs Temperature: 97.2 F Blood Pressure: 134/66 Pulse: 57 Respirations: 20 Pulse Ox (%): 99 - Physical Exam General: Alert, In no apparent distress, Oriented x3 HEENT: Atraumatic, Normocephalic, PERRLA Neck: Supple, 2+ carotid pulse no bruit Respiratory: Clear to auscultation bilaterally, Normal air movement, Diminished Cardiovascular: No edema, Normal pulses, Regular rate/rhythm, Normal S1 S2 Capillary refill: <2 Seconds Gastrointestinal: Normal bowel sounds, Soft and benign, Non-distended Musculoskeletal: No clubbing, No swelling Integumentary: No rashes, No breakdown Neurological: Normal speech, Normal strength at 5/5 x4 extr, Normal tone Lymphatics: No axilla or inguinal lymphadenopathy Assessment And Plan - Plan Generalized Weakness/failure to thrive: Pt is working with PT. It is likely due to liver cancer. CT head, chest, abd/pelvis shows hepatic lesions suspicious for malignancy/mets. Omental soft tissue masses/opacifications. Back pain: Continue prn pain med. Wear TLSO when out of bed. Pt has anterior compression fx of L3 and many levels of subacute fx of thoracic spine Continue PT. Waiting for SNF placement. Hypertension: Continue home meds. Hyperlipidemia: Continue statin. IDDM: Continue accuchek, SSI and ADA diet. Dehydration: s/p gentle hydration Dispo: Working with Insurance to in to [facility]
[2023-05-26] MEDS: INSULIN REGULAR (HUMAN) 100 UNIT/ML SQ ONE (22:01)
[2023-05-27] MEDS: INSULIN LISPRO 100 UNIT/ML SQ SCH (08:00)
[2023-05-27] MEDS ORDERED: INSULIN GLARGINE 100 UNIT/ML SQ SCH (09:00)
[2023-05-27] MEDS: INSULIN GLARGINE 100 UNIT/ML SQ SCH (09:00)
--- NOTE | 2023-05-27 10:21 | P.PN ---
Subjective Date of Service: 05/27/23 Chief Complaint: generalized weakness, fall Pt is resting comfortably in bed. He denies any chest pain or SOB. He is off aspirin and plavix for CT guided liver biopsy. Pt is working with PT. No other complaints. Review of Systems General: Unremarkable Eyes: Unremarkable ENT: Unremarkable Respiratory: Unremarkable Cardiovascular: Unremarkable Gastrointestinal: Unremarkable Genitourinary: Unremarkable Musculoskeletal: Unremarkable Integumentary: Unremarkable Neurological: Unremarkable Lymphatics: Unremarkable Physical Examination - Vital Signs Temperature: 97.7 F Blood Pressure: 119/57 Pulse: 61 Respirations: 18 Pulse Ox (%): 98 - Physical Exam General: Alert, In no apparent distress, Oriented x3 HEENT: Atraumatic, Normocephalic, PERRLA Neck: Supple, 2+ carotid pulse no bruit, JVD not distended Respiratory: Clear to auscultation bilaterally, Normal air movement Cardiovascular: No edema, Normal pulses, Regular rate/rhythm, Normal S1 S2 Capillary refill: <2 Seconds Gastrointestinal: Normal bowel sounds, Soft and benign, Non-distended Musculoskeletal: No clubbing, No swelling, No contractures Integumentary: No rashes, No breakdown, No significant lesion Neurological: Normal gait, Normal speech, Normal strength at 5/5 x4 extr Lymphatics: No axilla or inguinal lymphadenopathy Assessment And Plan - Plan Generalized Weakness/failure to thrive: Pt is working with PT. It is likely due to liver cancer. CT head, chest, abd/pelvis shows hepatic lesions suspicious for malignancy/mets. Omental soft tissue masses/opacifications. Pt is scheduled to have CT guided biopsy on 05/30/23. Aspirin and plavix are on hold. Back pain: Continue prn pain med. Wear TLSO when out of bed. Pt has anterior compression fx of L3 and many levels of subacute fx of thoracic spine Continue PT. Waiting for SNF placement. Hypertension: Continue home meds. Hyperlipidemia: Continue statin. IDDM: Continue accuchek, SSI, lantus 24u qhs, lispro 8u with meal, and ADA diet. Dehydration: s/p gentle hydration Dispo: Working with Insurance to [facility]
[2023-05-27] MEDS ORDERED: D50W 25 GM/50 ML SYRINGE IV PRN (22:01)
[2023-05-27] MEDS ORDERED: GLUCAGON 1 MG/VIAL IM PRN (22:01)
[2023-05-27] MEDS: INSULIN LISPRO 100 UNIT/ML SQ ONE (22:11)
--- NOTE | 2023-05-28 07:08 | P.PN ---
Subjective Date of Service: 05/28/23 Chief Complaint: generalized weakness, fall Admitted to failure to thrive, likely secondary to hepatic carcinoma,, scheduled for CT-guided liver biopsy, aspirin Plavix held, L3 compression fracture, TLSO when out of bed, pain control with as needed analgesia pt is resting comfortably in bed. He denies any chest pain or SOB. Pending correction facility authorization - Physical Exam General: Alert, In no apparent distress, Oriented x3 HEENT: Atraumatic, Normocephalic, PERRLA Neck: Supple, 2+ carotid pulse no bruit, JVD not distended Respiratory: Clear to auscultation bilaterally, Normal air movement Cardiovascular: No edema, Normal pulses, Regular rate/rhythm, Normal S1 S2 Capillary refill: <2 Seconds Gastrointestinal: Normal bowel sounds, Soft and benign, Non-distended Musculoskeletal: No clubbing, No swelling, No contractures Integumentary: No rashes, No breakdown, No significant lesion Neurological: Normal gait, Normal speech, Normal strength at 5/5 x4 extr Lymphatics: No axilla or inguinal lymphadenopathy <Alisa Medeiros - Last Filed: 05/28/23 16:34> Date of Service: 05/28/23 <Tony Pearce - Last Filed: 06/04/23 01:57> Review of Systems per HPI <Alisa Medeiros - Last Filed: 05/28/23 16:34> Physical Examination - Vital Signs Temperature: 97.8 F Blood Pressure: 109/58 Pulse: 54 Respirations: 16 Pulse Ox (%): 96 <Alisa Medeiros - Last Filed: 05/28/23 16:34> Assessment And Plan - Plan Hepatic carcinoma with metastasis stage IV Generalized Weakness/failure to thrive: Pt is working with PT. It is likely due to liver cancer. CT head, chest, abd/pelvis shows hepatic lesions suspicious for malignancy/mets. Omental soft tissue masses/opacifications. Pt is scheduled to have CT guided biopsy on 05/30/23. Aspirin and plavix are on hold. DNR, plan to transition to [facility] L3 compression fracture Back pain: Continue prn pain med. Wear TLSO when out of bed. Pt has anterior compression fx of L3 and many levels of subacute fx of thoracic spine Continue PT. Waiting for SNF placement. Hypertension: Continue home meds. Hyperlipidemia: Continue statin. IDDM: Continue accuchek, SSI, lantus 24u qhs, lispro 8u with meal, and ADA diet. Dehydration: s/p gentle hydration Dispo: Working with Insurance to pa to [facility] Discharge Plan: Senior Living - Code Status/Comfort Care Code Status: Do Not Attempt Resuscitat Critical Care: No Time Spent Managing PTS Care (In Minutes): 35 <Alisa Medeiros - Last Filed: 05/28/23 16:34> Date of Service: 05/28/23 Patient was seen and examined. Events of the last 24 hours have been noted. Spoke with with QUE regarding patient's clinical picture after evaluating and examining the patient independently. I performed a substantial part of the MDM during this patient's care today. I personally made or approved the documented management plan and acknowledge its risk of complications. I agree with the findings and documentation provided in the QUE's notes. <Tony Pearce - Last Filed: 06/04/23 01:57>
--- NOTE | 2023-05-29 14:18 | P.PN ---
Subjective Date of Service: 05/29/23 Chief Complaint: generalized weakness, fall Admitted to failure to thrive, likely secondary to hepatic carcinoma,, scheduled for CT-guided liver biopsy, aspirin Plavix held, L3 compression fracture, TLSO when out of bed, pain control with as needed analgesia pt is resting comfortably in bed. He denies any chest pain or SOB. Pending halfway facility authorization - Physical Exam General: Alert, In no apparent distress, Oriented x3 HEENT: Atraumatic, Normocephalic, PERRLA Neck: Supple, 2+ carotid pulse no bruit, JVD not distended Respiratory: Clear to auscultation bilaterally, Normal air movement Cardiovascular: No edema, Normal pulses, Regular rate/rhythm, Normal S1 S2 Capillary refill: <2 Seconds Gastrointestinal: Normal bowel sounds, Soft and benign, Non-distended Musculoskeletal: No clubbing, No swelling, No contractures Integumentary: No rashes, No breakdown, No significant lesion Neurological: Normal gait, Normal speech, Normal strength at 5/5 x4 extr Lymphatics: No axilla or inguinal lymphadenopathy <Alisa Medeiros - Last Filed: 05/29/23 14:15> Date of Service: 05/29/23 <PearcenOesimojon Kapadia - Last Filed: 06/04/23 01:58> Review of Systems 10-point ROS is otherwise unremarkable <Alisa Medeiros - Last Filed: 05/29/23 14:15> Physical Examination - Vital Signs Temperature: 97.6 F Blood Pressure: 124/58 Pulse: 60 Respirations: 15 Pulse Ox (%): 95 <Alisa Medeiros - Last Filed: 05/29/23 14:15> Assessment And Plan - Plan hepatic carcinoma with metastasis stage IV Generalized Weakness/failure to thrive: Pt is working with PT. It is likely due to liver cancer. CT head, chest, ab d/pelvis shows hepatic lesions suspicious for malignancy/mets. Omental soft tissue masses/opacifications. Pt is scheduled to have CT guided biopsy on 05/30/23. Aspirin and plavix are on hold. DNR, plan to transition to [facility] L3 compression fracture Back pain: Continue prn pain med. Wear TLSO when out of bed. Pt has anterior compression fx of L3 and many levels of subacute fx of thoracic spine Continue PT. Waiting for SNF placement. Hypertension: Continue home meds. Hyperlipidemia: Continue statin. IDDM: Continue accuchek, SSI, lantus 24u qhs, lispro 8u with meal, and ADA diet. Dehydration: s/p gentle hydration Dispo: Working with Insurance to [place] to [facility] Discharge Plan: [facility] - Code Status/Comfort Care Code Status: Do Not Attempt Resuscitat Critical Care: No Time Spent Managing PTS Care (In Minutes): 35 Discharge Plan: [facility] - Code Status/Comfort Care Code Status: Do Not Attempt Resuscitat Critical Care: No Time Spent Managing PTS Care (In Minutes): 35 <Alisa Medeiros - Last Filed: 05/29/23 14:15> Date of Service: 05/29/23 Patient was seen and examined. Events of the last 24 hours have been noted. Spoke with with QUE regarding patient's clinical picture after evaluating and examining the patient independently. I performed a substantial part of the MDM during this patient's care today. I personally made or approved the documented management plan and acknowledge its risk of complications. I agree with the findings and documentation provided in the QUE's notes. <Tony Pearce - Last Filed: 06/04/23 01:58>
[2023-05-30 04:19] LABS: Absolute Basophils 0.1 K/uL (0-0.5); Absolute Eosinophils 0.1 K/uL (0-0.5); Absolute Lymphocytes (CBC) 1.6 K/uL (0.7-4.9); Absolute Monocytes 0.7 K/uL (0.1-1.3); Absolute Neutrophil 5.2 K/uL (1.8-8.0); Anion Gap 9.5 mEq/L (5.0-15.0); Eosinophils % 0.8 % (0-4.4); Hematocrit 28.5 % (39.6-49.0); Hemoglobin 9.3 g/dL (13.6-17.9); Lymphocytes % 20.8 % (15.3-44.8); MCH 26.2 pg (27.0-35.0); MCHC 32.5 g/dL (32.0-36.0); MCV 80.7 fL (80-100); MPV 10.1 fL (7.6-11.3); Magnesium 1.9 mg/dL (1.6-2.4); Monocytes % 9.6 % (3.3-12.3); Neutrophils % 67.8 % (41.7-73.7); Platelets 99 thou/uL (152-406); Potassium 4.5 mEq/L (3.5-5.1); RBC Red Blood Cell Count 3.53 M/uL (4.33-5.43); Red Cell Distribution Width 15.5 % (12.1-15.2)
[2023-05-30 05:48] LABS: Platelet Estimate DECR; White Blood Cell Scan OK (OK)
[2023-05-30 05:49] LABS: Blood Morphology Comment NOT SEEN (NOT SEEN)
--- NOTE | 2023-05-30 07:32 | P.PN ---
Subjective Date of Service: 05/31/23 Chief Complaint: generalized weakness, fall Admitted to failure to thrive, likely secondary to hepatic carcinoma,, scheduled for CT-guided liver biopsy, aspirin Plavix held, L3 compression fracture, TLSO when out of bed, pain control with as needed analgesia pt is resting comfortably in bed. He denies any chest pain or SOB. Pending [facility] authorization - Physical Exam General: Alert, In no apparent distress, Oriented x3 HEENT: Atraumatic, Normocephalic, PERRLA Neck: Supple, 2+ carotid pulse no bruit, JVD not distended Respiratory: Clear to auscultation bilaterally, Normal air movement Cardiovascular: No edema, Normal pulses, Regular rate/rhythm, Normal S1 S2 Capillary refill: <2 Seconds Gastrointestinal: Normal bowel sounds, Soft and benign, Non-distended Musculoskeletal: No clubbing, No swelling, No contractures Integumentary: No rashes, No breakdown, No significant lesion Neurological: Normal gait, Normal speech, Normal strength at 5/5 x4 extr Lymphatics: No axilla or inguinal lymphadenopathy <Alisa Medeiros - Last Filed: 05/31/23 07:33> Date of Service: 05/30/23 <Tony Pearce - Last Filed: 06/04/23 01:59> Review of Systems prt HPI <Alisa Medeiros - Last Filed: 05/31/23 07:33> Physical Examination - Vital Signs Temperature: 97.7 F Blood Pressure: 114/57 Pulse: 54 Respirations: 16 Pulse Ox (%): 97 <Alisa Medeiros - Last Filed: 05/31/23 07:33> Assessment And Plan - Plan hepatic carcinoma with metastasis stage IV Generalized Weakness/failure to thrive: Pt is working with PT. It is likely due to liver cancer. CT head, chest, abd/pelvis shows hepatic lesions suspicious for malignancy/mets. Omental soft tissue masses/opacifications. Pt is scheduled to have CT guided biopsy on 05/30/23. Aspirin and plavix are on hold. DNR, plan to transition to [facility] L3 compression fracture Back pain: Continue prn pain med. Wear TLSO when out of bed. Pt has anterior compression fx of L3 and many levels of subacute fx of thoracic spine Continue PT. Waiting for SNF placement. Hypertension: Continue home meds. Hyperlipidemia: Continue statin. IDDM: Continue accuchek, SSI, lantus 24u qhs, lispro 8u with meal, and ADA diet. Dehydration: s/p gentle hydration Dispo: Working with Insurance to dc to [facility] Discharge Plan: Alf - Code Status/Comfort Care Code Status: Do Not Attempt Resuscitat Critical Care: No Time Spent Managing PTS Care (In Minutes): 35 - Code Status/Comfort Care Code Status: Do Not Attempt Resuscitat Critical Care: No Time Spent Managing PTS Care (In Minutes): 35 <Alisa Medeiros - Last Filed: 05/31/23 07:33> Date of Service: 05/30/23 Patient was seen and examined. Events of the last 24 hours have been noted. Spoke with with QUE regarding patient's clinical picture after evaluating and examining the patient independently. I performed a substantial part of the MDM during this patient's care today. I personally made or approved the documented management plan and acknowledge its risk of complications. I agree with the findings and documentation provided in the QUE's notes. Patient found to have metastatic cancer to the liver. Family contemplating hospice care. <Tony Pearce - Last Filed: 06/04/23 01:59>
[2023-05-30] MEDS: FLUMAZENIL 0.1 MG/ML (5 mL VIAL) IV ONE (09:01)
[2023-05-30] MEDS: FENTANYL CITR 100 MCG/2 ML ONE (09:02)
[2023-05-30] MEDS: NALOXONE HCL 2 MG/2 ML VIAL ONE (09:02)
[2023-05-30] MEDS: MIDAZOLAM HCL 2 MG/2 ML INJ ONE (09:02)
[2023-05-30] MEDS: NA CHLORIDE 0.9% 500 ML ONE (09:03)
--- NOTE | 2023-05-30 12:30 | RAD REPORT ---
EXAM DESCRIPTION: US - Liver Only - 05/30/2023 10:19 am CLINICAL HISTORY: LIVER BX- CX PER DR SUTHERLAND,LIVER U/S DONE COMPARISON: VAS VASCULAR SCREENING dated 11/16/2011; Abdomen Pelvis Wo Contrast dated 04/03/2023; He ad C Spine Cap W Con dated 05/21/2023 TECHNIQUE: Sonographic grayscale and color flow images of the upper abdomen were obtained. FINDINGS: The patient presented for ultrasound-guided biopsy of 1 of the liver masses seen on CT. Liver demonstrates mildly heterogeneous echotexture and normal echogenicity. Innumerable homogeneous hyperechoic masses, largest in the right lobe posteriorly measuring 3.9 x 3.9 cm in greatest dimensio ns. Hepatopetal flow appreciated in the main portal vein. The liver demonstrates no findings of intrahepatic biliary dilatation. IMPRESSION: Numerous hyperechoic masses throughout the liver. Although these could represent metasta tic lesions, the hyperechoic appearance is somewhat atypical for metastatic disease, and could pertai n to benign lesions such as hemangiomas, considering these were not previously evaluated by contrast- enhanced exams. These would benefit from additional characterization by liver MRI prior to biopsy. A biopsy can be arranged precipitously if there is persistent concern for malignancy. The findings were discussed with Dr. Pearce at the time of scanning.
[2023-05-30] MEDS ORDERED: MORPHINE 2 MG/ML SYR IV PRN (13:06)
--- NOTE | 2023-05-30 15:07 | RAD REPORT ---
EXAM DESCRIPTION: MRI - Abdomen WWo Cont - 05/30/2023 2:57 pm CLINICAL HISTORY: Liver protocol(with contrast) Abdominal pain COMPARISON: Liver Only dated 05/30/2023; Abdomen Pelvis Wo Contrast dated 04/03/2023; Head C Spine Cap W Con dated 05/21/2023 FINDINGS: Innumerable mildly T2 hyperintense and thin rim enhancing lesions are present throughout t he liver likely representing diffuse hepatic metastatic disease. 3.5 cm lesion in the posteroinferior right lobe of the liver is the largest lesion visible. No intrahepatic or extrahepatic biliary dilat ation. The spleen is mildly enlarged. Significant atrophy of the pancreas. Both adrenal glands and kidneys a re unremarkable. Ill-defined soft tissue is present along the greater omentum, incompletely assessed. No bulky lymphadenopathy in the abdomen. No free fluid collections. IMPRESSION: Findings are most compatible with diffuse hepatic metastatic disease.
[2023-05-30] MEDS: dexAMETHasone 4 MG/ML VIAL IV ONE (15:44)
[2023-05-30] MEDS: LIDOCAINE 5% OINT 30 GM TUBE TOP ONE (20:05)
[2023-05-31 04:00] LABS: Absolute Lymphocytes (CBC) 0.8 K/uL (0.7-4.9); Absolute Monocytes 0.4 K/uL (0.1-1.3); Absolute Neutrophil 6.1 K/uL (1.8-8.0); Basophils % 0.4 % (0-1.3); Hematocrit 28.1 % (39.6-49.0); Hemoglobin 9.5 g/dL (13.6-17.9); Lymphocytes % 11.3 % (15.3-44.8); MCH 26.8 pg (27.0-35.0); MCHC 33.9 g/dL (32.0-36.0); MCV 79.3 fL (80-100); MPV 9.1 fL (7.6-11.3); Neutrophils % 82.3 % (41.7-73.7); Nucleated Red Blood Cells % 0.2 % (0-0); Platelets 117 thou/uL (152-406); RBC Red Blood Cell Count 3.55 M/uL (4.33-5.43); Red Cell Distribution Width 15.5 % (12.1-15.2)
[2023-05-31 04:02] LABS: Anion Gap 7.5 mEq/L (5.0-15.0); Potassium 4.5 mEq/L (3.5-5.1)
--- NOTE | 2023-05-31 07:34 | P.PN ---
Subjective Date of Service: 06/01/23 Chief Complaint: generalized weakness, fall Admitted to failure to thrive, likely secondary to hepatic carcinoma,, scheduled for CT-guided liver biopsy, aspirin Plavix held, L3 compression fracture, TLSO when out of bed, pain control with as needed analgesia pt is resting comfortably in bed. He denies any chest pain or SOB. Pending [facility] facility versus hospice, sr. social media & mobile manager to discuss options OG tube feeding for nutrition - Physical Exam General: Alert, In no apparent distress, Oriented x3 HEENT: Atraumatic, Normocephalic, PERRLA Neck: Supple, 2+ carotid pulse no bruit, JVD not distended Respiratory: Clear to auscultation bilaterally, Normal air movement Cardiovascular: No edema, Normal pulses, Regular rate/rhythm, Normal S1 S2 Capillary refill: <2 Seconds Gastrointestinal: Normal bowel sounds, Soft and benign, Non-distended Musculoskeletal: No clubbing, No swelling, No contractures Integumentary: No rashes, No breakdown, No significant lesion Neurological: Normal gait, Normal speech, Normal strength at 5/5 x4 extr Lymphatics: No axilla or inguinal lymphadenopathy <Alisa Medeiros - Last Filed: 06/01/23 07:08> Date of Service: 05/31/23 <Tony Pearce - Last Filed: 06/04/23 02:03> Review of Systems Per HPI <Alisa Medeiros - Last Filed: 06/01/23 07:08> Physical Examination - Vital Signs Temperature: 97.7 F Blood Pressure: 114/57 Pulse: 54 Respirations: 16 Pulse Ox (%): 97 <Alisa Medeiros - Last Filed: 06/01/23 07:08> Assessment And Plan - Plan hepatic carcinoma with metastasis stage IV- Generalized Weakness/failure to thrive: Pt is working with PT. It is likely due to liver cancer. CT head, chest, abd/pelvis shows hepatic lesions suspicious for malignancy/mets. Omental soft tissue masses/opacifications. Pt is scheduled to have CT guided biopsy on 05/30/23. Aspirin and plavix are on hold.DNR, plan to transition to [place] residential versus hospice discharge planning 05/29 liver ultrasound IMPRESSION: Numerous hyperechoic masses throughout the liver. Although these could represent metastatic lesions, the hyperechoic appearance is somewhat atypical for metastatic disease, and could pertain to benign lesions such as hemangiomas, considering these were not previously evaluated by contrast-enhanced exams. These would benefit from additional characterization by liver MRI prior to biopsy. A biopsy can be arranged precipitously if there is persistent concern for malignancy. The findings 05/29 abdominal MRI IMPRESSION: Findings are most compatible with diffuse hepatic metastatic disease were discussed with Dr. Pearce at the time of scanning. Liver biopsy canceled L3 compression fracture Back pain: Continue prn pain med. Wear TLSO when out of bed. Pt has anterior compression fx of L3 and many levels of subacute fx of thoracic spine Continue PT. Waiting for SNF placement. Hypertension: Continue home meds. Hyperlipidemia: Continue statin. IDDM: Continue accuchek, SSI, lantus 24u qhs, lispro 8u with meal, and ADA diet. Dehydration: s/p gentle hydration Dispo: Working with Insurance to de to [facility] Discharge Plan: Intermediate - Code Status/Comfort Care Code Status: Do Not Attempt Resuscitat Critical Care: No Time Spent Managing PTS Care (In Minutes): 35 - Code Status/Comfort Care Code Status: Do Not Attempt Resuscitat Time Spent Managing PTS Care (In Minutes): 35 <Alisa Medeiros - Last Filed: 06/01/23 07:08> Date of Service: 05/31/23 Patient was seen and examined. Events of the last 24 hours have been noted. Spoke with with QUE regarding patient's clinical picture after evaluating and examining the patient independently. I performed a substantial part of the MDM during this patient's care today. I personally made or approved the documented management plan and acknowledge its risk of complications. I agree with the findings and documentation provided in the QUE's notes. Patient found to have metastatic cancer to the liver. Family arranging for hospice care. <Tony Pearce - Last Filed: 06/04/23 02:03>
[2023-06-01 04:49] VITALS: O2SAT 98
--- NOTE | 2023-06-01 07:22 | P.DS ---
Admission Date: 05/21/23 Discharge Date: 06/03/23 Reason for Admission: generalized weakness, fall Brief History of Present Illness: Mr. Zamora is an 88-year-old gentleman with a past medical history of hypertension, uqa-[id number] diabetes, hypothyroidism, hyperlipidemia, CAD. He lives in a home with his who is 90. Over the last 3 weeks he has become very weak, has been having an increasingly difficult time ambulating, even with his assistive devices, and presented to the emergency department status post 2 falls today. On evaluation, he is sedate but answers questions appropriately. He is generally weak. He states he has not been able to eat secondary to early satiety, and reports a 40 pound late weight loss over the past year, 20 pounds of that over the last several months. CT evaluation in the emergency department reveals, " numerous hypoattenuating hepatic lesions, largest measuring 3 cm in the inferior aspect of the right liver lobe, concerning for metastatic disease. Progressive anterior wedge compression deformity at L3 with stable posterior cortical buckling. Other multilevel thoracic compression deformities are stable. Stable nodular soft tissue masses with calcifications in the omentum right midline, largest measuring 3.8 cm." L aboratory evaluation reviewed anemia at 9 and 27.9, platelets 130, neutrophils 90.1%. Pseudohyponatremia of 131 with a blood glucose of 355. Mild renal insufficiency with creatinine of 1.33 and GFR 52. Blood and urine cultures have been sent. He will be admitted for further evaluation, treatment, with discharge planning for SNF. - Physical Exam General: Lethargy HEENT: Normocephalic Neck: JVD not distended Respiratory: Normal air movement Cardiovascular: No edema, Regular rate/rhythm Capillary refill: <2 Seconds Gastrointestinal: Soft and benign Musculoskeletal: No clubbing, Other (significant weakness) Integumentary: Other (multiple areas of ecchymosis at joints, forearms) Neurological: Abnormal strength, Abnormal tone Lymphatics: No axilla or inguinal lymphadenopathy Hospital Course: 88-year-old admitted to failure to thrive, L3 compression fracture, TLSO when out of bed, pain control with as needed analgesia. Was noted to have hepatic carcinoma with metastasis stage IV-Generalized Weakness/failure to thrive likely secondary to metastatic liver cancer, L3 compression fracture. Pending 10 to transition to halfway facility versus hospice, social services manager to discuss options with family per family options. Assessment Hepatic carcinoma with metastasis stage IV- Generalized Weakness/failure to thrive Dehydration Insulin-dependent diabetes mellitus Plan to discharge to hospice care Continue home medicines as previously prescribed GOAL: Clear understanding of disease process INSTRUCTIONS: Physician Discharge Instructions: -DC IV and DC home -Follow-up with PCP in 1 to 2 weeks -Please call Dr. Pearce at [phone] if any questions regarding hospital stay -Please call nursing station at [phone] if any nursing or medication questions -Return to the emergency room if symptoms worsen Diet: ADA, low sodium Activity: Fall precautions <Alisa Medeiros - Last Filed: 06/03/23 10:53> Admission Date: 05/21/23 Discharge Date: 06/02/23 Hospital Course: Patient's clinical status has worsened. Patient's prognosis is poor. Patient's family has decided on hospice care. [facility]. <Tony Pearce - Last Filed: 06/04/23 02:21> Disposition: HOSPICE-MEDICAL FACILITY Discharge Condition: FAIR Vital Signs/Physical Exam: Temp Pulse Resp BP Pulse Ox 97.7 F 54 16 114/57 L 97 06/01/23 07:15 06/01/23 07:15 06/01/23 07:15 06/01/23 07:15 06/01/23 07:15 Laboratory Data at Discharge: WBC 7.40 thou/uL (4.3-10.9) 05/31/23 03:24 Hgb 9.5 g/dL (13.6-17.9) L 05/31/23 03:24 Hct 28.1 % (39.6-49.0) L 05/31/23 03:24 Plt Count 117 thou/uL (152-406) L 05/31/23 03:24 PT 14.8 SECONDS (9.5-12.5) H 05/22/23 03:19 INR 1.36 05/22/23 03:19 APTT 31.6 SECONDS (24.3-36.9) 05/22/23 03:19 Sodium 130 mEq/L (136-145) L 05/31/23 03:24 Potassium 4.5 mEq/L (3.5-5.1) 05/31/23 03:24 BUN 27 mg/dL (7-18) H 05/31/23 03:24 Creatinine 0.83 mg/dL (0.70-1.30) 05/31/23 03:24 Glucose 261 mg/dL (74-106) H 05/31/23 03:24 Magnesium 2.0 mg/dL (1.6-2.4) 05/31/23 03:24 Total Bilirubin 0.7 mg/dL (0.2-1.0) 05/26/23 02:16 AST 25 U/L (15-37) 05/26/23 02:16 ALT 34 U/L (16-61) 05/26/23 02:16 Alkaline Phosphatase 125 U/L (45-117) H 05/26/23 02:16 Triglycerides 78 mg/dL (<150) 05/22/23 03:19 Cholesterol 77 mg/dL (<200) 05/22/23 03:19 HDL Cholesterol 32 mg/dL (40-60) L 05/22/23 03:19 Cholesterol/HDL Ratio 2.41 05/22/23 03:19 <Alisa Medeiros - Last Filed: 06/03/23 10:53> Vital Signs/Physical Exam: Temp Pulse Resp BP Pulse Ox 97.0 F 50 16 114/56 L 98 06/03/23 10:53 06/03/23 10:53 06/03/23 10:53 06/03/23 10:53 06/03/23 10:53 Laboratory Data at Discharge: WBC 7.80 thou/uL (4.3-10.9) 06/01/23 06:37 Hgb 10.7 g/dL (13.6-17.9) L D 06/01/23 06:37 Hct 33.5 % (39.6-49.0) L 06/01/23 06:37 Plt Count 120 thou/uL (152-406) L 06/01/23 06:37 PT 14.8 SECONDS (9.5-12.5) H 05/22/23 03:19 INR 1.36 05/22/23 03:19 APTT 31.6 SECONDS (24.3-36.9) 05/22/23 03:19 Sodium 134 mEq/L (136-145) L D 06/01/23 06:37 Potassium 4.1 mEq/L (3.5-5.1) 06/01/23 06:37 BUN 28 mg/dL (7-18) H 06/01/23 06:37 Creatinine 0.96 mg/dL (0.70-1.30) 06/01/23 06:37 Glucose 152 mg/dL (74-106) H 06/01/23 06:37 Magnesium 2.1 mg/dL (1.6-2.4) 06/02/23 07:16 Total Bilirubin 0.7 mg/dL (0.2-1.0) 05/26/23 02:16 AST 25 U/L (15-37) 05/26/23 02:16 ALT 34 U/L (16-61) 05/26/23 02:16 Alkaline Phosphatase 125 U/L (45-117) H 05/26/23 02:16 Triglycerides 78 mg/dL (<150) 05/22/23 03:19 Cholesterol 77 mg/dL (<200) 05/22/23 03:19 HDL Cholesterol 32 mg/dL (40-60) L 05/22/23 03:19 Cholesterol/HDL Ratio 2.41 05/22/23 03:19 <Tony Pearce - Last Filed: 06/04/23 02:21> Diet: ADA Activity: Fall precautions Time spent managing pt's care (in minutes): 55 <Alisa Medeiros - Last Filed: 06/03/23 10:53> <Tony Pearce - Last Filed: 06/04/23 02:21> Home Medications: Aspirin Chewable [Aspirin Chewable*] 1 tab PO DAILY 05/21/23 Atorvastatin Calcium 40 mg PO BEDTIME 05/21/23 Cholecalciferol (Vitamin D3) [Vitamin D3] 6,000 unit PO DAILY 05/21/23 Clopidogrel Bisulfate [Plavix*] 1 tab PO DAILY 05/21/23 Cyanocobalamin (Vitamin B-12) [Vitamin B12] 1 tab PO DAILY 05/21/23 Donepezil HCl 1 tab PO BID 05/21/23 Finasteride [Proscar*] 5 mg PO DAILY 05/21/23 Hydrocodone Bit/Acetaminophen [Hydrocodon-Acetaminoph 7.5-325] 1 tab PO DAILYPRN PRN 05/21/23 Insulin Degludec [Tresiba Flextouch U-100] 14 units SQ DAILY 05/21/23 Levothyroxine Sodium 75 mcg PO [id number] 05/21/23 Memantine HCl [Namenda] 10 mg PO BID 05/21/23 Nitrofurantoin Macrocrystal [Nitrofurantoin] 50 mg PO DAILY 05/21/23 Trospium Chloride [Sanctura] 1 tab PO BID 05/21/23 Amiodarone HCl [Cordarone*] 100 mg PO BID tab 06/01/23 Kenrick [Kenrick*] 1 pkt PO BID #30 packet 06/01/23 Lidocaine 4% Patch [Lidoderm 5% Patch*] 1 patch TOP DAILY #30 pat 06/01/23 New Medications: Kenrick [Kenrick*] 1 pkt PO BID #30 packet Lidocaine 4% Patch [Lidoderm 5% Patch*] 1 patch TOP DAILY #30 pat Physician Discharge Instructions: OK TO DC TO [place] ONCE ACCEPTED TO RESPITE CARE Followup: Noel Cerna DO [Primary Care Provider] -
[2023-06-01 07:25] LABS: Absolute Lymphocytes (CBC) 1.5 K/uL (0.7-4.9); Absolute Monocytes 0.6 K/uL (0.1-1.3); Absolute Neutrophil 5.6 K/uL (1.8-8.0); Basophils % 0.6 % (0-1.3); Eosinophils % 0.5 % (0-4.4); Hematocrit 33.5 % (39.6-49.0); Hemoglobin 10.7 g/dL (13.6-17.9); Lymphocytes % 18.9 % (15.3-44.8); MCH 25.7 pg (27.0-35.0); MCHC 31.9 g/dL (32.0-36.0); MCV 80.5 fL (80-100); MPV 9.4 fL (7.6-11.3); Monocytes % 8.2 % (3.3-12.3); Neutrophils % 71.8 % (41.7-73.7); Platelets 120 thou/uL (152-406); RBC Red Blood Cell Count 4.16 M/uL (4.33-5.43); Red Cell Distribution Width 15.3 % (12.1-15.2)
[2023-06-01 07:27] LABS: Anion Gap 5.1 mEq/L (5.0-15.0); Potassium 4.1 mEq/L (3.5-5.1)
[2023-06-01] MEDS: FENTANYL 25 MCG/PATCH TD ONE (09:57)
[2023-06-01] MEDS: LIDOCAINE 4% PATCH TOP SCH (09:57)
[2023-06-02 08:37] VITALS: TEMP 97
--- NOTE | 2023-06-02 08:56 | P.PN ---
Subjective Date of Service: 06/03/23 Chief Complaint: generalized weakness, fall Admitted to failure to thrive, likely secondary to hepatic carcinoma,, scheduled for CT-guided liver biopsy, aspirin Plavix held, L3 compression fracture, TLSO when out of bed, pain control with as needed analgesia pt is resting comfortably in bed. He denies any chest pain or SOB. [facility], social services manager to discuss options OG tube feeding for nutrition - Physical Exam General: Alert, In no apparent distress, Oriented x3 HEENT: Atraumatic, Normocephalic, PERRLA Neck: Supple, 2+ carotid pulse no bruit, JVD not distended Respiratory: Clear to auscultation bilaterally, Normal air movement Cardiovascular: No edema, Normal pulses, Regular rate/rhythm, Normal S1 S2 Capillary refill: <2 Seconds Gastrointestinal: Normal bowel sounds, Soft and benign, Non-distended Musculoskeletal: No clubbing, No swelling, No contractures Integumentary: No rashes, No breakdown, No significant lesion Neurological: Normal gait, Normal speech, Normal strength at 5/5 x4 extr Lymphatics: No axilla or inguinal lymphadenopathy <Alisa Medeiros - Last Filed: 06/03/23 10:53> Date of Service: 06/02/23 <Tony Pearce - Last Filed: 06/04/23 02:15> Physical Examination - Vital Signs Temperature: 97.0 F Blood Pressure: 114/56 Pulse: 50 Respirations: 16 Pulse Ox (%): 98 <Alisa Medeiros - Last Filed: 06/03/23 10:53> Assessment And Plan - Plan hepatic carcinoma with metastasis stage IV- Generalized Weakness/failure to thrive: Pt is working with PT. It is likely due to liver cancer. CT head, chest, abd/pelvis shows hepatic lesions suspicious for malignancy/mets. Omental soft tissue masses/opacifications. Pt is scheduled to have CT guided biopsy on 05/30/23. Aspirin and plavix are on hold.DNR, plan to transition to [facility] versus hospice discharge planning 05/29 liver ultrasound IMPRESSION: Numerous hyperechoic masses throughout the liver. Although these could represent metastatic lesions, the hyperechoic appearance is somewhat atypical for metastatic disease, and could pertain to benign lesions such as hemangiomas, considering these were not previously evaluated by contrast-enhanced exams. These would benefit from additional characterization by liver MRI prior to biopsy. A biopsy can be arranged precipitously if there is persistent concern for malignancy. The findings 05/29 abdominal MRI IMPRESSION: Findings are most compatible with diffuse hepatic metastatic disease were discussed with Dr. Pearce at the time of scanning. Liver biopsy canceled L3 compression fracture Back pain: Continue prn pain med. Wear TLSO when out of bed. Pt has anterior compression fx of L3 and many levels of subacute fx of thoracic spine Continue PT. Waiting for SNF placement. Hypertension: Continue home meds. Hyperlipidemia: Continue statin. IDDM: Continue accuchek, SSI, lantus 24u qhs, lispro 8u with meal, and ADA diet. Dehydration: s/p gentle hydration Dispo: Working with Insurance to tn to [facility] Discharge Plan: Long-Term - Code Status/Comfort Care Code Status: Do Not Attempt Resuscitat Critical Care: No Time Spent Managing PTS Care (In Minutes): 35 <Alisa Medeiros - Last Filed: 06/03/23 10:53> Date of Service: 06/02/23 Patient was seen and examined. Events of the last 24 hours have been noted. Spoke with with [facility] regarding patient's clinical picture after evaluating and examining the patient independently. I performed a substantial part of the MDM during this patient's care today. I personally made or approved the documented management plan and acknowledge its risk of complications. I agree with the findings and documentation provided in the QUE's notes. Patient found to have metastatic cancer to the liver. Family arranging for hospice care. <Tony Pearce - Last Filed: 06/04/23 02:15>
[2023-06-03 11:21] VITALS: BP 114/56
== END 2023-06-02 14:21 | disposition hospice, inpatient (51) | DRG 436 ==
LOC: ER 09:24 → ERHOLD 13:28 → 2ND 14:46
PROVIDERS: ADMIT Hospitalist; ATTEND Hospitalist
PROC: 30233N1 Transfusion of Nonautologous Red Blood Cells into Peripheral Vein, Percutaneous Approach (ICD-10-PCS; principal; 2023-05-22)
PROC: 0FB13ZX Excision of Right Lobe Liver, Percutaneous Approach, Diagnostic (ICD-10-PCS; 2023-05-30)
DX: C22.0 Liver cell carcinoma (principal); E44.0 Moderate protein-calorie malnutrition; S32.039A Unspecified fracture of third lumbar vertebra, initial encounter for closed fracture; R64 Cachexia; L89.152 Pressure ulcer of sacral region, stage 2; E11.51 Type 2 diabetes mellitus with diabetic peripheral angiopathy without gangrene; E86.0 Dehydration; E03.9 Hypothyroidism, unspecified; I10 Essential (primary) hypertension; G89.29 Other chronic pain; M54.9 Dorsalgia, unspecified; M19.90 Unspecified osteoarthritis, unspecified site; I25.10 Atherosclerotic heart disease of native coronary artery without angina pectoris; R29.6 Repeated falls; Z66 Do not resuscitate; Z91.81 History of falling; Z51.5 Encounter for palliative care; Z79.4 Long term (current) use of insulin; Z95.2 Presence of prosthetic heart valve; Z95.5 Presence of coronary angioplasty implant and graft; Z79.01 Long term (current) use of anticoagulants; Z79.84 Long term (current) use of oral hypoglycemic drugs; Z68.24 Body mass index [BMI] 24.0-24.9, adult; Z87.891 Personal history of nicotine dependence
CPT/HCPCS: 36415; 51702; 70450; 71260; 72125; 74177; 74183; 76705; 80048; 80053; 80061; 81001; 82947; 83036; 83605; 83735; 84132; 84439; 85014; 85018; 85025; 85610; 85730; 86850; 86900; 86901; 86920; 93005; 97110; 97116; 97161; 97530; 97542; 97760; 99285; A9577; J1100; J1815; J2001; J2250; J2310; J3010; J3475; J7040; J7050; P9016; Q9967

== ENCOUNTER 2024-02-20 14:17 | Inpatient (IN) | payer MEDICARE, OTHER ==
[2024-02-20] MEDS ORDERED: NA CHLORIDE 0.9% 500 ML ONE (14:31)
[2024-02-20 15:54] LABS: PT Prothrombin Time 14.7 SECONDS (9.4-12.5); Protime INR 1.32
[2024-02-20 16:09] LABS: Albumin/Globulin Ratio 0.5 (1.1-1.8); Anion Gap 10.2 mEq/L (5.0-15.0); Bilirubin Direct 0.6 mg/dL (0-0.2); Bilirubin Indirect, Calculated 0.5 mg/dL (0.2-0.8); Bilirubin Total 1.1 mg/dL (0.2-1.0); Globulin 3.9 g/dL (2.3-3.5); Magnesium 1.9 mg/dL (1.6-2.4); Potassium 3.2 mEq/L (3.5-5.1); Protein, Total 5.9 g/dL (6.4-8.2); Troponin High Sensitivity 7.2 pg/mL (<58.9)
[2024-02-20 16:30] LABS: Absolute Lymphocytes (CBC) 1.1 K/uL (0.7-4.9); Absolute Monocytes 0.8 K/uL (0.1-1.3); Basophils % 0.5 % (0-1.3); Eosinophils % 0.2 % (0-4.4); Hematocrit 34.2 % (39.6-49.0); Hemoglobin 11.1 g/dL (13.6-17.9); Lymphocytes % 9.8 % (15.3-44.8); MCH 27.4 pg (27.0-35.0); MCHC 32.5 g/dL (32.0-36.0); MCV 84.4 fL (80-100); MPV 9.9 fL (7.6-11.3); Monocytes % 7.5 % (3.3-12.3); Nucleated Red Blood Cells % 0.4 % (0-0); Platelets 163 thou/uL (152-406); RBC Red Blood Cell Count 4.05 M/uL (4.33-5.43); Red Cell Distribution Width 17.2 % (12.1-15.2)
--- NOTE | 2024-02-20 16:42 | ER ---
Nurse's Notes [facility] Name: Jadon Zamora Age: 88 yrs Sex: Male : 1935 Arrival Date: 02/20/2024 Time: 14:17 Bed 4 Private MD: Diagnosis: Melena, GI bleed, abdominal pain Presentation: 02/19 14:21 Chief complaint: EMS states: Diarrhea x3 days, tarry diarrhea that started this rs5 morning, denies pain N/V at this moment. Coronavirus screen: At this time, the client does not indicate any symptoms associated with coronavirus-19. Ebola Screen: No symptoms or risks identified at this time. Initial Sepsis Screen: Does the patient meet any 2 criteria? No. Patient's initial sepsis screen is negative. Does the patient have a suspected source of infection? No. Patient's initial sepsis screen is negative. Risk Assessment: Do you want to hurt yourself or someone else? Patient reports no desire to harm self or others. Onset of symptoms was February 20, 2024. 14:21 Method Of Arrival: EMS: [facility] rs5 14:21 Acuity: RISHABH 3 rs5 Historical: - Allergies: 14:23 No Known Allergies; rs5 - PMHx: 14:23 Arthritis; CAD; cardiac stent x2; Diabetes - NIDDM; Hypertension; UTI; liver cancer rs5 (UTI); - PSHx: 14:23 heart surgery (UTI); rs5 14:37 left arm surgery- fracture; knee replacement bilat; rs5 - Immunization history:: Adult Immunizations up to date. - Infectious Disease History:: Denies. - Social history:: Smoking status: Patient denies any tobacco usage or history of. Screenin:22 [facility] ED Fall Risk Assessment (Adult) History of falling in the last 3 months, rs5 including since admission No falls in past 3 months (0 pts) Confusion or Disorientation No (0 pts) Intoxicated or Sedated No (0 pts) Impaired Gait Yes (1 pt) Mobility Assist Device Used Yes (1 pt) Altered Elimination No (0 pt) Score/Fall Risk Level 3 or more points = High Risk Oriented to surroundings, Maintained a safe environment. Abuse screen: Denies threats or abuse. Nutritional screening: No deficits noted. Tuberculosis screening: No symptoms or risk factors identified. Assessment: 14:20 General: Appears in no apparent distress. comfortable, Behavior is calm, cooperative. rs5 Pain: Denies pain. Neuro: Level of Consciousness is awake, alert, obeys commands, Oriented to person, place, time, situation. Cardiovascular: Patient's skin is warm and dry. Respiratory: Airway is patent Respiratory effort is even, unlabored, Respiratory pattern is regular, symmetrical. GI: Abdomen is round non-distended, Abd is soft and non tender X 4 quads. : Barillas in place to gravity drainage. EENT: No signs and/or symptoms were reported regarding the EENT system. Derm: Skin is intact, Skin is pink, warm \\T\\ dry. Musculoskeletal: Range of motion: intact in all extremities. 15:45 Reassessment: Patient and/or family updated on plan of care and expected duration. Pain rs5 level reassessed. Patient is alert, oriented x 3, equal unlabored respirations, skin warm/dry/pink. 16:22 Reassessment: Patient and/or family updated on plan of care and expected duration. Pain rs5 level reassessed. Patient is alert, oriented x 3, equal unlabored respirations, skin warm/dry/pink. 16:45 Reassessment: to bedside, pt states, "I have a folly cath ether because I retain urine rs5 and cannot pee without it. It started leaking this morning and I would like to get it changed" provider notified . 16:52 Reassessment: to bedside for barillas catheter replacement. 16 ff balloon dis inflated rs5 with 30cc. Barillas removed. 18g barillas inserted by me and tech using aseptic technique. Pt tolerated procedure well. Provider notified . 17:30 Reassessment: Patient and/or family updated on plan of care and expected duration. Pain rs5 level reassessed. Patient is alert, oriented x 3, equal unlabored respirations, skin warm/dry/pink. 18:45 Reassessment: Patient and/or family updated on plan of care and expected duration. Pain rs5 level reassessed. Patient is alert, oriented x 3, equal unlabored respirations, skin warm/dry/pink. 19:22 Reassessment: report faxed and received. ha1 Vital Signs: 14:21 BP 130 / 88; Pulse 80; Resp 17; Temp 97.8(O); Pulse Ox 98% ; rs5 15:56 BP 117 / 78; Pulse 65; Resp 19; Pulse Ox 99% ; rs5 18:50 BP 117 / 84; Pulse 74; Resp 17; Pulse Ox 99% on R/A; rs5 20:05 BP 118 / 68; Pulse 74; Resp 17 S; Pulse Ox 99% on R/A; ha1 ED Course: 14:19 Patient arrived in ED. ss 14:20 Zack Cerna MD is Attending Physician. sp3 14:21 Polo Desouza, RN is Primary Nurse. rs5 14:22 Patient has correct armband on for positive identification. Placed in gown. Bed in low rs5 position. Call light in reach. Side rails up X2. 14:22 No provider procedures requiring assistance completed. rs5 14:23 Triage completed. rs5 15:35 Initial lab(s) drawn, Lab(s) recollected, by me, sent to lab. EKG done, by ED staff, kb4 reviewed by Zack Cerna MD. Inserted saline lock: 20 gauge in right antecubital area, using aseptic technique. Blood collected. Flushed with 10 mL NS. 15:56 Provided Education on: labs, meds. ko1 16:33 CT Abd/Pelvis - IV Contrast Only In Process Unspecified. EDMS 16:41 Tony Pearce MD is Hospitalizing Provider. sp3 16:52 Barillas cath inserted, using sterile technique, 18 Fr., by me, by ED staff, balloon rs5 inflated, to gravity drainage. 20:05 Arm band placed on right wrist. ha1 20:05 Patient admitted, IV remains in place. ha1 Administered Medications: 15:00 Drug: NS 0.9% IV 500 ml 500 ml IV at 1 bolus once; to be given as a bolus over 30 rs5 minutes Volume: 500 ml; Route: IV; Rate: 1 bolus; Site: right antecubital; 15:35 Follow up: Response: No adverse reaction; IV Status: Completed infusion; IV Intake: rs5 500ml Medication: 14:39 VIS not applicable for this client. rs5 Intake: 15:35 IV: 500ml; Total: 500ml. rs5 Outcome: 16:41 Decision to Hospitalize by Provider. sp3 20:02 Admitted to [facility] via stretcher, room 431, with chart, ha1 20:02 Condition: stable 20:02 Instructed on the need for admit, Demonstrated understanding of instructions, 20:06 Patient left the ED. ha1 Signatures: Dispatcher [employer] EDMS Jaye Morales, FRANK RN ss Zack Cerna MD MD sp3 Soraida Medrano RN RN ha1 Sharita Shearer RN RN ko1 Polo Desouza RN RN rs5 Meseret Lima kb4 Corrections: (The following items were deleted from the chart) 15:57 15:56 Provided Education on: labs, meds, admit. ko1 ko1 15:59 14:20 : No signs and/or symptoms were reported regarding the genitourinary system. rs5rs5 16:00 15:56 BP 117 / 78; Pulse 65bpm; Resp 24bpm; Pulse Ox 99%; ko1 rs5
--- NOTE | 2024-02-20 16:42 | EDPHYS ---
Physician Documentation [facility] Name: Jadon Zamora Age: 88 yrs Sex: Male : 1935 Arrival Date: 02/20/2024 Time: 14:17 Bed 4 Private MD: ED Physician Zack Cerna HPI: 02/19 14:50 This 88 yrs old Male presents to ER via EMS with complaints of Black/Tarry Stools. sp3 14:50 88-year-old male with history of unknown liver pathology possible cancer, paroxysmal sp3 atrial fibrillation currently on Plavix and aspirin, CAD with 2 stents, diabetes, hypertension, with daughter is power of attorney lawyer who is at the bedside now presents to the ED with chief complaint of black tarry stools over the last 2-3 days significant in number, with worsening symptoms over the last 24 hours. Patient has diffuse abdominal pain. Patient sees Dr. Noel Cerna here in [place]. He denies chest pain, shortness of breath, bleeding anywhere else or any other signs or symptoms on ROS at this time. Patient is on no anticoagulants but does take both Plavix and aspirin 81 mg as antiplatelet agents.. Historical: - Allergies: 14:23 No Known Allergies; rs5 - PMHx: 14:23 Arthritis; CAD; cardiac stent x2; Diabetes - NIDDM; Hypertension; UTI; liver cancer rs5 (UTI); - PSHx: 14:23 heart surgery (UTI); rs5 14:37 left arm surgery- fracture; knee replacement bilat; rs5 - Immunization history:: Adult Immunizations up to date. - Infectious Disease History:: Denies. - Social history:: Smoking status: Patient denies any tobacco usage or history of. ROS: 14:51 Constitutional: Negative for fever, chills, and weight loss, Eyes: Negative for injury, sp3 pain, redness, and discharge, Neck: Negative for injury, pain, and swelling, Respiratory: Negative for shortness of breath, cough, wheezing, and pleuritic chest pain, Back: Negative for injury and pain, MS/Extremity: Negative for injury and deformity, Skin: Negative for injury, rash, and discoloration, Neuro: Negative for headache, weakness, numbness, tingling, and seizure, Psych: Negative for depression, anxiety, suicide ideation, homicidal ideation, and hallucinations, Allergy/Immunology: Negative for hives, rash, and allergies, Endocrine: Negative for neck swelling, polydipsia, polyuria, polyphagia, and marked weight changes, 14:51 All other systems are negative, Exam: 14:52 Constitutional: This is a well developed, well nourished patient who is awake, alert, sp3 and in no acute distress. Head/Face: Normocephalic, atraumatic. Eyes: Pupils equal round and reactive to light, extra-ocular motions intact. Lids and lashes normal. Conjunctiva and sclera are non-icteric and not injected. Cornea within normal limits. Periorbital areas with no swelling, redness, or edema. Neck: Trachea midline, no thyromegaly or masses palpated, and no cervical lymphadenopathy. Supple, full range of motion without nuchal rigidity, or vertebral point tenderness. No Meningismus. Chest/axilla: Normal chest wall appearance and motion. Nontender with no deformity. No lesions are appreciated. Cardiovascular: Regular rate and rhythm with a normal S1 and S2. No gallops, murmurs, or rubs. Normal PMI, no JVD. No pulse deficits. Respiratory: Lungs have equal breath sounds bilaterally, clear to auscultation and percussion. No rales, rhonchi or wheezes noted. No increased work of breathing, no retractions or nasal flaring. Back: No spinal tenderness. No costovertebral tenderness. Full range of motion. Skin: Warm, dry with normal turgor. Normal color with no rashes, no lesions, and no evidence of cellulitis. MS/ Extremity: Pulses equal, no cyanosis. Neurovascular intact. Full, normal range of motion. Neuro: Awake and alert, GCS 15, oriented to person, place, time, and situation. Cranial nerves II-XII grossly intact. Motor strength 5/5 in all extremities. Sensory grossly intact. Cerebellar exam normal. Normal gait. Psych: Awake, alert, with orientation to person, place and time. Behavior, mood, and affect are within normal limits. 14:52 Abdomen/GI: Diffuse pain to palpation without peritoneal signs, rebound or guarding. Patient appears generally weak. Vital signs are normal., 15:37 ECG was reviewed by the Attending Physician. EKG demonstrates atrial fibrillation at 71 sp3 bpm in the setting of left bundle branch block with no concordance. Vital Signs: 14:21 BP 130 / 88; Pulse 80; Resp 17; Temp 97.8(O); Pulse Ox 98% ; rs5 15:56 BP 117 / 78; Pulse 65; Resp 19; Pulse Ox 99% ; rs5 18:50 BP 117 / 84; Pulse 74; Resp 17; Pulse Ox 99% on R/A; rs5 20:05 BP 118 / 68; Pulse 74; Resp 17 S; Pulse Ox 99% on R/A; ha1 MDM: 14:21 Medical Screening Exam initiated sp3 14:52 Data reviewed: vital signs, nurses notes, lab test result(s), EKG, radiologic studies. sp3 ED course: 88-year-old male with PMH above with possible liver pathology as well currently on antiplatelet agents who presents with melena and probable GI bleed. Differential diagnosis includes primary GI bleed versus coagulopathy versus thrombocytopenia versus liver pathology, versus others. Will keep patient n.p.o., obtain CT scan of the abdomen pelvis, general labs including type and screen and coagulation profile. Disposition probable admission with GI consult and general supportive care.. 16:41 ED course: Hemoglobin at 11 and vital signs remained stable. We have GI coverage here sp3 today so we will admit to hospitalist with GI consult.. 02/19 14:21 Order name: Basic Metabolic Panel; Complete Time: 16:30 3 02/19 14:21 Order name: CBC with Diff sp3 02/19 14:21 Order name: LFT's; Complete Time: 16:30 3 02/19 14:21 Order name: Magnesium; Complete Time: 16:30 3 02/19 14:21 Order name: NT PRO-BNP; Complete Time: 16:30 3 02/19 14:21 Order name: PT-INR; Complete Time: 16:00 3 02/19 14:21 Order name: Troponin HS; Complete Time: 16:30 3 02/19 14:21 Order name: Ptt, Activated; Complete Time: 16:00 3 02/19 14:21 Order name: Type And Screen; Complete Time: 16:00 3 02/19 14:21 Order name: Lactate w/ 2H reflex if indic.; Complete Time: 16:30 3 02/19 16:07 Order name: Ghost Lactate-NO COLLECT Timer EDRI 02/19 17:09 Order name: CBC with Automated Diff EDMS 02/19 18:20 Order name: CBC with Automated Diff EDMS 02/19 18:20 Order name: CBC with Automated Diff EDMS 02/19 18:20 Order name: Comprehensive Metabolic Panel EDMS 02/19 18:20 Order name: Comprehensive Metabolic Panel EDMS 02/19 18:20 Order name: Protime (+INR) EDMS 02/19 18:20 Order name: Protime (+INR) EDMS 02/19 18:20 Order name: PTT, Activated Partial Thromb EDMS 02/19 18:20 Order name: PTT, Activated Partial Thromb EDMS 02/19 14:21 Order name: CT Abd/Pelvis - IV Contrast Only; Complete Time: 16:50 3 02/19 18:20 Order name: Case Management Consult EDRI 02/19 14:21 Order name: Cardiac monitoring; Complete Time: 15:00 3 02/19 14:21 Order name: EKG - Nurse/Tech; Complete Time: 15:00 3 02/19 14:21 Order name: IV Saline Lock; Complete Time: 15:00 3 02/19 14:21 Order name: Labs collected and sent; Complete Time: 15:01 3 02/19 14:21 Order name: O2 Per Protocol; Complete Time: 15:01 3 02/19 14:21 Order name: O2 Sat Monitoring; Complete Time: 15:01 3 02/19 14:21 Order name: NPO; Complete Time: 14:52 3 02/19 15:20 Order name: Labs - recollect needed: recollect all the blood/ hemolyzed per lab; eb Complete Time: 15:36 Administered Medications: 15:00 Drug: NS 0.9% IV 500 ml 500 ml IV at 1 bolus once; to be given as a bolus over 30 rs5 minutes Volume: 500 ml; Route: IV; Rate: 1 bolus; Site: right antecubital; 15:35 Follow up: Response: No adverse reaction; IV Status: Completed infusion; IV Intake: rs5 500ml Disposition Summary: 02/20/24 16:41 Hospitalization Ordered Notes: Hospitalization Status: Inpatient Admission sp3 Provider: Tony Pearce sp3 [facility] sp3 Condition: Stable sp3 Problem: new sp3 Symptoms: have worsened sp3 Bed/Room Type: Standard sp3 Room Assignment: 431(02/20/24 18:30) Diagnosis - Melena, GI bleed, abdominal pain sp3 Forms: - Medication Reconciliation Form sp3 - SBAR form sp3 - Leadership Thank You Letter sp3 Signatures: Dispatcher [employer] EDMS Jaye Morales RN RN ss Betty Ledezma Setul, MD MD sp3 Polo Desouza RN RN rs5 Corrections: (The following items were deleted from the chart) 14:21 14:21 Abdomen Pelvis W Con+CT.RAD.BRZ ordered. EDMS EDMS 18:30 16:41 sp3 ss
--- NOTE | 2024-02-20 16:46 | RAD REPORT ---
EXAMINATION: CT ABDOMEN AND PELVIS WITH CONTRAST CLINICAL INDICATION: GI bleed;Abd pain TECHNIQUE: CT abdomen and pelvis was performed, after the administration of IV contrast, [facility]. Axial, sagittal and coronal reconstructions were obtained. One or more of the following dose reduction techniques were used: Automated exposure control, adjustment of the mA and k V according to patient size, and iterative reconstruction. Unless otherwise specified, incidental findings do not require dedicated imaging follow-up. COMPARISON: 04/03/2023 FINDINGS: LOWER CHEST: Mild dependent opacities in both lung bases. Small bilateral pleural effusions. LIVER: Innumerable masses are present throughout the liver which appears mildly prominent in size com patible with metastatic disease. Small calcifications in the gallbladder noted. SPLEEN: Mildly prominent splenic size. PANCREAS: No mass, ductal dilation, or bonnie-pancreatic fluid. ADRENALS: Normal; no mass. KIDNEYS: Normal size and contour. No hydronephrosis. GASTROINTESTINAL TRACT: Rectosigmoid wall thickening is present with enhancement suggesting colitis. There are numerous diverticula also present. APPENDIX: Normal appendix. LYMPH NODES: No lymphadenopathy. MUSCULOSKELETAL: High-grade compression fracture affects L3. Mild to moderate canal narrowing. ADDITIONAL FINDINGS: Mild free fluid in the upper abdomen. IMPRESSION: Rectosigmoid wall thickening enhancement suggests moderate colitis. No pneumatosis. Innumerable masses throughout the liver compatible with metastatic disease. Mild ascites.
--- NOTE | 2024-02-20 18:12 | P.HP ---
Certification for Inpatient Patient admitted to: Inpatient With expected LOS: >2 Midnights Patient will require the following post-hospital care: None Practitioner: I am a practitioner with admitting privileges, knowledge of patient current condition, hospital course, and medical plan of care. Services: Services provided to patient in accordance with Admission requirements found in Title 42 Section 412.3 of the Code of Federal Regulations Patient History Date of Service: 02/20/24 Reason for admission: Generalized weakness and cachexia History of Present Illness: Patient is an 88-year-old gentleman who was recently diagnosed with metastatic cancer that was spread to the liver. Possible etiology is a colon malignancy as patient with significant colitis. Patient had been on hospice care but after 6 months of hospice care patient was maintaining so they canceled the hospice. Patient went to home health however he never participated with physical therapy. They went ahead and discontinued his home health. However, they never contacted hospice. Family is concerned that they do not have a biopsy result. However, after further evaluation patient has a very poor performance status and would not benefit from a biopsy as he is very cachectic and emaciated and declined. Patient will need to get placed on hospice with clinical diagnosis of colon cancer with liver metastasis. Patient will be admitted for inpatient hospitalization Allergies No Known Allergies Allergy (Verified 05/21/23 16:22) Home Medications: Aspirin Chewable [Aspirin Chewable*] 1 tab PO DAILY 05/21/23 Cholecalciferol (Vitamin D3) [Vitamin D3] 6,000 unit PO DAILY 05/21/23 Clopidogrel Bisulfate [Plavix*] 1 tab PO DAILY 05/21/23 Cyanocobalamin (Vitamin B-12) [Vitamin B-12] 1 tab PO DAILY 05/21/23 Donepezil HCl 1 tab PO BID 05/21/23 Finasteride [Proscar*] 5 mg PO DAILY 05/21/23 Memantine HCl [Namenda] 10 mg PO BID 05/21/23 Amiodarone HCl [Cordarone*] 200 mg PO BID 02/20/24 Cranberry 1,500 mg PO DAILY 02/20/24 Hydrocodone Bit/Acetaminophen [Hydrocodon-Acetaminophn 10-325] 1 tab PO BID 02/20/24 Insulin Aspart [Novolog Flexpen] 6 units SQ SEECOM 02/20/24 Levothyroxine Sodium 125 mcg PO DAILY 02/20/24 - Past Medical/Surgical History Diabetic: Yes -: HTN -: Arthritis -: 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 also problem with rt macular degeneration -: thyroid -: HLD -: Bilateral Knees -: Bilateral Cataracts -: Carpal Tunnel pancho. -: cardiac stent - 4 stents -: heart valve-2018 Psychosocial/ Personal History: Lives at home with his 90yr old , has walker, motorized scooter, w/c. Has a new aligner barrel and receiver for 4 hours daily. Pt has been having difficulty with ambulation for about three weeks. Today he could not support his own body weight and fell to his knees. - Family History Mother Medical History: Heart disease, Other (see notes) Notes: CHF Father Medical History: Heart disease - Social History Alcohol use: No CD- Drugs: No Caffeine use: Yes Review of Systems 10-point ROS is otherwise unremarkable Physical Examination - Vital Signs Temperature: 99 F Blood Pressure: 110/60 Pulse: 100 Respirations: 18 Pulse Ox (%): 95 - Physical Exam General: Alert, In no apparent distress, Other (Cachectic and emaciated) HEENT: Atraumatic, PERRLA, Mucous membr. moist/pink, EOMI, Sclerae nonicteric Neck: Supple, 2+ carotid pulse no bruit, No LAD, Without JVD or thyroid abnormality Respiratory: Clear to auscultation bilaterally, Normal air movement Cardiovascular: Regular rate/rhythm, Normal S1 S2, No murmurs Gastrointestinal: Normal bowel sounds, No rebound, No guarding, Tenderness Musculoskeletal: No clubbing, No swelling, No tenderness Integumentary: No rashes Neurological: Normal speech, Cranial nerves 3-12 intact, Abnormal gait, Abnormal strength, Abnormal affect Lymphatics: No axilla or inguinal lymphadenopathy - Studies Laboratory Data (last 24 hrs) 02/20/24 02/20/24 02/20/24 15:33 15:33 15:33 WBC 11.00 H Hgb 11.1 L Hct 34.2 L Plt Count 163 PT 14.7 H INR 1.32 APTT 36.0 Sodium 141 Potassium 3.2 L BUN 18 Creatinine 0.99 Glucose 183 H Magnesium 1.9 Total Bilirubin 1.1 H AST 32 ALT 17 Alkaline Phosphatase 342 H Assessment & Plan - Problems (Diagnosis) (1) Colon cancer metastasized to liver Current Visit: Yes Status: Acute - Plan Plan: 1. Discussed with family and plan to proceed with hospice care. Patient very cachectic and emaciated and his performance status is very poor. He is unable to tolerate any kind of surgical procedure. Liver biopsy is that high risk of bleeding after talking to the radiology will also advise family against this. Patient will need hospice care at this time and we will go ahead and proceed Discharge Plan: Other Plan to discharge in: 48 Hours - Advance Directives Does patient have a Living Will: No Does patient have a Durable POA for Healthcare: Yes - Code Status/Comfort Care Code Status Assessed: Yes Code Status: Do Not Attempt Resuscitat Comfort Measures: Palliative Care Critical Care: No Time Spent Managing PTS Care (In Minutes): 45
[2024-02-20] MEDS ORDERED: ACETAMINOPHEN 500 MG TAB PO PRN (18:13)
[2024-02-20] MEDS ORDERED: MORPHINE 2 MG/ML SYR IV PRN (18:13)
[2024-02-20] MEDS ORDERED: ONDANSETRON 4 MG/2 ML VIAL IV PRN (18:13)
[2024-02-20 21:54] LABS: Anisocytosis SLIGHT; Band Neutrophils 5 % (0-1); Blood Morphology Comment NOTED (NOT SEEN); Differential Total Cells Count 100; Lymphocytes 7 % (15-42); Monocytes 7 % (0-10); Platelet Estimate ADEQ; Segmented Neutrophils 80 % (40-80)
[2024-02-20 21:55] LABS: Polychromasia SLIGHT
[2024-02-20] MEDS: HYDROCODONE/APAP 7.5/325 MG TAB PO ONE (22:01)
[2024-02-20] MEDS: MELATONIN 5 MG TABLET PO ONE (22:01)
[2024-02-20] MEDS: NA CHLORIDE 0.9% 1,000 ML IV SCH (22:02)
[2024-02-20 23:01] VITALS: BMI 25.1
[2024-02-20 23:30] LABS: Absolute Lymphocytes (CBC) 1.1 K/uL (0.7-4.9); Absolute Monocytes 0.8 K/uL (0.1-1.3); Absolute Neutrophil 8.3 K/uL (1.8-8.0); Basophils % 0.4 % (0-1.3); Eosinophils % 0.3 % (0-4.4); Hematocrit 32.9 % (39.6-49.0); Hemoglobin 10.8 g/dL (13.6-17.9); Lymphocytes % 10.7 % (15.3-44.8); MCH 27.6 pg (27.0-35.0); MCHC 32.8 g/dL (32.0-36.0); MCV 84.3 fL (80-100); MPV 9.8 fL (7.6-11.3); Monocytes % 7.4 % (3.3-12.3); Nucleated Red Blood Cells % 0.1 % (0-0); Platelets 165 thou/uL (152-406); Red Cell Distribution Width 17.6 % (12.1-15.2)
[2024-02-20 23:34] LABS: Neutrophils % 81.2 % (41.7-73.7)
[2024-02-21 07:04] LABS: PTT, Activated Partial Thromb 37.9 SECONDS (24.3-36.9); Protime INR 1.35
[2024-02-21 07:05] LABS: Absolute Lymphocytes (CBC) 1.5 K/uL (0.7-4.9); Absolute Monocytes 0.7 K/uL (0.1-1.3); Absolute Neutrophil 6.7 K/uL (1.8-8.0); Basophils % 0.4 % (0-1.3); Eosinophils % 0.5 % (0-4.4); Hematocrit 32.1 % (39.6-49.0); Hemoglobin 10.3 g/dL (13.6-17.9); Lymphocytes % 16.9 % (15.3-44.8); MCH 27.2 pg (27.0-35.0); MCV 85.1 fL (80-100); MPV 9.8 fL (7.6-11.3); Monocytes % 7.7 % (3.3-12.3); Neutrophils % 74.5 % (41.7-73.7); Nucleated Red Blood Cells % 0.1 % (0-0); Platelets 158 thou/uL (152-406); RBC Red Blood Cell Count 3.78 M/uL (4.33-5.43); Red Cell Distribution Width 17.3 % (12.1-15.2)
[2024-02-21 07:17] LABS: AST/SGOT 23 U/L (15-37); Albumin 1.8 g/dL (3.4-5.0); Albumin/Globulin Ratio 0.5 (1.1-1.8); Alkaline Phosphatase 282 U/L (45-117); Anion Gap 10.1 mEq/L (5.0-15.0); BUN Blood Urea Nitrogen 15 mg/dL (7-18); Bicarbonate 25 mEq/L (21-32); Bilirubin Total 0.9 mg/dL (0.2-1.0); Globulin 3.5 g/dL (2.3-3.5); Glomerular Filtration Rate 83 ml/min (=/>90); Glucose Level 208 mg/dL (74-106); Potassium 4.1 mEq/L (3.5-5.1); Protein, Total 5.3 g/dL (6.4-8.2); Sodium Level 142 mEq/L (136-145)
[2024-02-21 07:18] LABS: ALT/SGPT < 14 U/L (16-61)
[2024-02-21 09:35] LABS: Differential Total Cells Count 100; Lymphocytes 16 % (15-42); Monocytes 5 % (0-10); Segmented Neutrophils 75 % (40-80)
[2024-02-21 09:36] LABS: Anisocytosis 1+; Blood Morphology Comment NOTED (NOT SEEN); Metamyelocytes 1 % (0-0); Myelocytes 2 % (0-0); Platelet Estimate ADEQ; Polychromasia SLIGHT
[2024-02-21] MEDS: DIPHENOX/ATROP SULF 1 TAB PO ONE (17:39)
[2024-02-21] MEDS: FENTANYL CITR 100 MCG/2 ML IV ONE (17:40)
[2024-02-21] MEDS: METHYLPREDNISOLONE 125 MG INJ IV SCH (17:40)
[2024-02-21 19:14] LABS: Absolute Lymphocytes (CBC) 0.9 K/uL (0.7-4.9); Absolute Monocytes 0.6 K/uL (0.1-1.3); Absolute Neutrophil 8.9 K/uL (1.8-8.0); Basophils % 0.4 % (0-1.3); Eosinophils % 0.3 % (0-4.4); Hematocrit 33.3 % (39.6-49.0); Hemoglobin 10.7 g/dL (13.6-17.9); Lymphocytes % 8.8 % (15.3-44.8); MCH 27.3 pg (27.0-35.0); MCHC 32.2 g/dL (32.0-36.0); MCV 84.7 fL (80-100); MPV 9.6 fL (7.6-11.3); Monocytes % 5.4 % (3.3-12.3); Neutrophils % 85.1 % (41.7-73.7); Platelets 164 thou/uL (152-406); RBC Red Blood Cell Count 3.93 M/uL (4.33-5.43); Red Cell Distribution Width 17.6 % (12.1-15.2)
[2024-02-21] MEDS ORDERED: ALBUTEROL 2.5 MG/3 ML NEB SOL NEB PRN (20:03)
[2024-02-21] MEDS: ZINC OXIDE 20% OINTMENT 60gm TOP SCH (21:00)
[2024-02-21] MEDS: SCOPOLAMINE HYDROBROMIDE PATCH TD ONE (21:33)
[2024-02-21] MEDS: ENSURE ENLIVE 237 ML CAN PO SCH (21:33)
[2024-02-21] MEDS ORDERED: FENTANYL CITR 100 MCG/2 ML IV PRN (22:00)
[2024-02-21] MEDS ORDERED: DIPHENOX/ATROP SULF 1 TAB PO PRN (22:00)
[2024-02-21] MEDS ORDERED: MELATONIN 5 MG TABLET PO ONE (22:50)
[2024-02-22 07:44] LABS: Absolute Monocytes 0.5 K/uL (0.1-1.3); Absolute Neutrophil 7.9 K/uL (1.8-8.0); Basophils % 0.5 % (0-1.3); Hematocrit 35.8 % (39.6-49.0); Hemoglobin 11.5 g/dL (13.6-17.9); Lymphocytes % 10.5 % (15.3-44.8); MCH 27.6 pg (27.0-35.0); MCHC 32.2 g/dL (32.0-36.0); MCV 85.6 fL (80-100); MPV 9.6 fL (7.6-11.3); Monocytes % 5.2 % (3.3-12.3); Neutrophils % 83.8 % (41.7-73.7); Nucleated Red Blood Cells % 0.1 % (0-0); Platelets 161 thou/uL (152-406); RBC Red Blood Cell Count 4.18 M/uL (4.33-5.43)
[2024-02-22 07:57] LABS: Anion Gap 12.9 mEq/L (5.0-15.0); Carcinoembryonic Antigen 8.5 ng/mL (0-5.0); Potassium 3.9 mEq/L (3.5-5.1)
--- NOTE | 2024-02-25 11:00 | EKG ---
Test Date: 2024-02-20 Test Time: 14:37:34 Mine Engineer: PAT MEASUREMENT RESULTS: Intervals: Rate: 71 MD: QRSD: 166 QT: 494 QTc: 536 Coffeen: P: 85 MD: QRS: 29 T: 60 INTERPRETIVE STATEMENTS: Atrial fibrillation Left bundle branch block Abnormal ECG Electronically Signed On 02-25-24 10:53:37 JOB TRAINING SPECIALIST by Richard Harrison
[2024-02-26 15:07] VITALS: O2SAT 98
[2024-02-26 15:12] VITALS: BP 146/104; TEMP 97.9
--- NOTE | 2024-03-26 02:55 | P.PN ---
Date of Service: 02/21/24 Subjective Patient is clinically declining. Patient's performance status is very poor. Will discuss with family and hospice care. Physical Examination - Vital Signs reviewed - Physical Exam General: Alert, In no apparent distress, Other (Cachectic and emaciated) HEENT: Atraumatic, PERRLA, Mucous membr. moist/pink, EOMI, Sclerae nonicteric Neck: Supple, 2+ carotid pulse no bruit, No LAD, Without JVD or thyroid abnormality Respiratory: Clear to auscultation bilaterally, Normal air movement Cardiovascular: Regular rate/rhythm, Normal S1 S2, No murmurs Gastrointestinal: Normal bowel sounds, No rebound, No guarding, Tenderness Assessment & Plan - Problems (Diagnosis) (1) Colon cancer metastasized to liver Current Visit: Yes Status: Acute - Plan Continue with plan of care as mentioned below: 1. Discussed with family and plan to proceed with hospice care. Patient very cachectic and emaciated and his performance status is very poor. He is unable to tolerate any kind of surgical procedure. Liver biopsy is that high risk of bleeding after talking to the radiology will also advise family against this. Patient will need hospice care at this time and we will go ahead and proceed per family's request Discharge Plan: Other Plan to discharge in: 24hrs - Advance Directives Does patient have a Living Will: No Does patient have a Durable POA for Healthcare: Yes - Code Status/Comfort Care Code Status Assessed: Yes Code Status: Do Not Attempt Resuscitat Comfort Measures: Palliative Care Critical Care: No Time Spent Managing PTS Care (In Minutes): 45
--- NOTE | 2024-03-26 02:57 | P.PN ---
Date of Service: 02/22/24 Subjective Patient's family has decided to proceed with hospice care. Will discuss with them this evening and afterwards we should be able to place on inpatient versus outpatient hospice. Physical Examination - Vital Signs reviewed - Physical Exam General: Alert, In no apparent distress, Other (Cachectic and emaciated) HEENT: Atraumatic, PERRLA, Mucous membr. moist/pink, EOMI, Sclerae nonicteric Neck: Supple, 2+ carotid pulse no bruit, No LAD, Without JVD or thyroid abnormality Respiratory: Clear to auscultation bilaterally, Normal air movement Cardiovascular: Regular rate/rhythm, Normal S1 S2, No murmurs Gastrointestinal: Normal bowel sounds, No rebound, No guarding, Tenderness Assessment & Plan - Problems (Diagnosis) (1) Colon cancer metastasized to liver Current Visit: Yes Status: Acute - Plan Continue with plan of care as mentioned below: 1. Discussed with family and plan to proceed with hospice care. Patient very cachectic and emaciated and his performance status is very poor. He is unable to tolerate any kind of surgical procedure. Liver biopsy is that high risk of bleeding after talking to the radiology will also advise family against this. Patient will need hospice care at this time and we will go ahead and proceed per family's request; Family is agreeable to proceed with hospice at this time. Will have discussion with hospice company and we will proceed from there. Patient will be transferred to inpatient hospice when he is accepted. Discharge Plan: Other Plan to discharge in: 24hrs - Advance Directives Does patient have a Living Will: No Does patient have a Durable POA for Healthcare: Yes - Code Status/Comfort Care Code Status Assessed: Yes Code Status: Do Not Attempt Resuscitat Comfort Measures: Palliative Care Critical Care: No Time Spent Managing PTS Care (In Minutes): 35
--- NOTE | 2024-03-26 03:00 | P.DS ---
Discharge Date: 02/23/24 Disposition: HOSPICE-HOME Discharge Condition: FAIR Reason for Admission: Generalized weakness and cachexia - Problems (1) Colon cancer metastasized to liver Status: Acute Brief History of Present Illness: Patient is an 88-year-old gentleman who was recently diagnosed with metastatic cancer that was spread to the liver. Possible etiology is a colon malignancy as patient with significant colitis. Patient had been on hospice care but after 6 months of hospice care patient was maintaining so they canceled the hospice. Patient went to home health however he never participated with physical therapy. They went ahead and discontinued his home health. However, they never contacted hospice. Family is concerned that they do not have a biopsy result. However, after further evaluation patient has a very poor performance status and would not benefit from a biopsy as he is very cachectic and emaciated and declined. Patient will need to get placed on hospice with clinical diagnosis of colon cancer with liver metastasis. Patient will be admitted for inpatient hospitalization Hospital Course: Family was agreeable for hospice at this time. Patient will be discharged with family to proceed with hospice care at the house. Vital Signs/Physical Exam: Temp Pulse Resp BP Pulse Ox 97.9 F 105 H 20 146/104 H 97 02/23/24 08:00 02/23/24 08:00 02/23/24 08:00 02/23/24 08:00 02/23/24 08:00 General: Alert, Confused Laboratory Data at Discharge: WBC 9.40 thou/uL (4.3-10.9) 02/22/24 07:29 Hgb 11.5 g/dL (13.6-17.9) L 02/22/24 07:29 Hct 35.8 % (39.6-49.0) L 02/22/24 07:29 Plt Count 161 thou/uL (152-406) 02/22/24 07:29 PT 15.0 SECONDS (9.4-12.5) H 02/21/24 06:00 INR 1.35 02/21/24 06:00 APTT 37.9 SECONDS (24.3-36.9) H 02/21/24 06:00 Sodium 141 mEq/L (136-145) 02/22/24 07:29 Potassium 3.9 mEq/L (3.5-5.1) 02/22/24 07:29 BUN 16 mg/dL (7-18) 02/22/24 07:29 Creatinine 0.90 mg/dL (0.70-1.30) 02/22/24 07:29 Glucose 334 mg/dL (74-106) H 02/22/24 07:29 Magnesium 1.9 mg/dL (1.6-2.4) 02/20/24 15:33 Total Bilirubin 0.9 mg/dL (0.2-1.0) 02/21/24 06:00 AST 23 U/L (15-37) 02/21/24 06:00 ALT < 14 U/L (16-61) L 02/21/24 06:00 Alkaline Phosphatase 282 U/L (45-117) H 02/21/24 06:00 Home Medications: Aspirin Chewable [Aspirin Chewable*] 1 tab PO DAILY 05/21/23 Cholecalciferol (Vitamin D3) [Vitamin D3] 6,000 unit PO DAILY 05/21/23 Clopidogrel Bisulfate [Plavix*] 1 tab PO DAILY 05/21/23 Cyanocobalamin (Vitamin B-12) [Vitamin B-12] 1 tab PO DAILY 05/21/23 Donepezil HCl 1 tab PO BID 05/21/23 Finasteride [Proscar*] 5 mg PO DAILY 05/21/23 Memantine HCl [Namenda] 10 mg PO BID 05/21/23 Amiodarone HCl [Cordarone*] 200 mg PO BID 02/20/24 Cranberry 1,500 mg PO DAILY 02/20/24 Hydrocodone Bit/Acetaminophen [Hydrocodon-Acetaminophn 10-325] 1 tab PO BID 02/20/24 Insulin Aspart [Novolog Flexpen] 6 units SQ SEECOM 02/20/24 Levothyroxine Sodium 125 mcg PO DAILY 02/20/24 Diphenox/Atropine [Lomotil*] 1 tab PO BIDP PRN #30 tab 02/23/24 Ensure Enlive 237 ml PO BID #60 can 02/23/24 Zinc Oxide [Zinc Oxide 20%*] 1 appl TOP BID #1 tube 02/23/24 predniSONE [Prednisone*] 20 mg PO BID #20 tab 02/23/24 New Medications: Ensure Enlive 237 ml PO BID #60 can Diphenox/Atropine [Lomotil*] 1 tab PO BIDP PRN #30 tab PRN Reason: Diarrhea predniSONE [Prednisone*] 20 mg PO BID #20 tab Zinc Oxide [Zinc Oxide 20%*] 1 appl TOP BID #1 tube Physician Discharge Instructions: Discharge to hospice Diet: Regular (comfort foods) Activity: Fall precautions Followup: Noel Cerna, DO [ACTIVE - CAN ADMIT] - Time spent managing pt's care (in minutes): 35
== END 2024-02-23 09:55 | disposition hospice, home (50) | DRG 948 ==
LOC: ER 14:17 → ERHOLD 18:13 → 4TH 19:10
PROVIDERS: ADMIT Hospitalist; ATTEND Hospitalist
DX: R53.1 Weakness (principal); C18.9 Malignant neoplasm of colon, unspecified; R64 Cachexia; C78.7 Secondary malignant neoplasm of liver and intrahepatic bile duct; K92.1 Melena; I48.0 Paroxysmal atrial fibrillation; E11.9 Type 2 diabetes mellitus without complications; E78.5 Hyperlipidemia, unspecified; I10 Essential (primary) hypertension; K52.9 Noninfective gastroenteritis and colitis, unspecified; I25.10 Atherosclerotic heart disease of native coronary artery without angina pectoris; Z66 Do not resuscitate; Z51.5 Encounter for palliative care; Z79.4 Long term (current) use of insulin; Z95.5 Presence of coronary angioplasty implant and graft; Z79.82 Long term (current) use of aspirin; Z79.02 Long term (current) use of antithrombotics/antiplatelets; Z96.653 Presence of artificial knee joint, bilateral; Z68.25 Body mass index [BMI] 25.0-25.9, adult; Z79.890 Hormone replacement therapy; Z79.899 Other long term (current) drug therapy
CPT/HCPCS: 36415; 51702; 74177; 80048; 80053; 80076; 82105; 82378; 82947; 83605; 83735; 83880; 84484; 85025; 85610; 85730; 86850; 86900; 86901; 93005; 96360; 99285; J2919; J3010; J7030; J7040; Q9967